=== PATIENT | male | born 1950 | race Caucasian/White ===

== ENCOUNTER 2017-02-19 08:45 | Day surgery (SDC) | payer MEDICARE ==
[2017-02-16 15:39] VITALS: BMI 45.9
[~2017-02-19 08:45] MED LIST: LACTATED RINGERS 1,000 ML IV SCH
[2017-02-19 11:12] LABS: Glucose,Whole Blood 232 mg/dL (75-99)
[2017-02-19] MEDS ORDERED: LIDOCAINE 1% 20 ML VIAL (10MG/ML) FOR IV START INTRADERMA ONE (11:12)
[2017-02-19 11:14] VITALS: TEMP 98.5
[2017-02-19] MEDS ORDERED: LIDOCAINE 1% INJ 10MG/ML (20 ML MDV) ONE (11:14)
[2017-02-19] MEDS ORDERED: PROPOFOL 10 MG/ML 20 ML VIAL IV ONE (11:14)
--- NOTE | 2017-02-19 11:49 | P.GSHP ---
History of Present Illness H&P Date: 02/19/17 Chief Complaint: Colon cancer screening Patient here today for colonoscopy. Last colonoscopy was 8 years ago. Denies rectal bleeding. He has had outpatient stool studies that were negative for blood because of a diagnosis of anemia. No melanotic stools. Last colonoscopy was normal. No family history of colon cancer. Past Medical History Past Medical History: COPD, Diabetes Mellitus, Eye Disorder, Hyperlipidemia, Hypertension, Prostate Disorder, Sleep Apnea/CPAP/BIPAP, Thyroid Disorder Additional Past Medical History / Comment(s): HX PVC'S. MILD COPD. ANEMIA. HX KIDNEY STONES. BPH. HAD DIABETIC RETINOPATHY TX ON EYES. HAS HAD PICC LINE IN PAST, NOW OUT. CHRONIC BACK AND KNEE PAIN History of Any Multi-Drug Resistant Organisms: None Reported Past Surgical History: Orthopedic Surgery Additional Past Surgical History / Comment(s): RT THYROIDECTOMY. MASS FROM BACK , FATTY TUMOR. NASAL MASS REMOVED. LASER EYES, INTRAOCULAR LENS. WOUND ON RT FOOT I&D. LEFT KNEE ARTHROSCOPY, CYST REMOVED FROM TAILBONE Past Anesthesia/Blood Transfusion Reactions: Previous Problems w/ Anesthesia Additional Past Anesthesia/Blood Transfusion Reaction / Comment(s): OCC TAKES LONG TIME TO AWAKEN. Past Psychological History: No Psychological Hx Reported Smoking Status: Former smoker Past Alcohol Use History: None Reported Additional Past Alcohol Use History / Comment(s): SMOKED 25 YEARS, 1 PPD, QUIT 1999 Past Drug Use History: None Reported - Past Family History Mother Family Medical History: No Reported History Medications and Allergies Home Medications Medication Instructions Recorded Confirmed Type Atenolol [Tenormin] 25 mg PO DAILY 03/06/16 02/16/17 History Atorvastatin [Lipitor] 20 mg PO DAILY 03/06/16 02/16/17 History Cholecalciferol [Vitamin D3] 2,000 unit PO DAILY 03/06/16 02/16/17 History Cyclobenzaprine [Flexeril] 10 mg PO TID 03/06/16 02/16/17 History Fenofibrate,Micronized 130 mg PO DAILY 03/06/16 02/16/17 History [Fenofibrate] Furosemide [Furosemide] 40 mg PO BID 03/06/16 02/16/17 History Hydrocodone/Acetaminophen 1 tab PO HS PRN 03/06/16 02/16/17 History [Hydrocodon-Acetaminophn 10-325] Levothyroxine Sodium [Synthroid] 25 mcg PO DAILY 03/06/16 02/16/17 History Lisinopril [Lisinopril] 20 mg PO DAILY 03/06/16 02/16/17 History Naproxen [Naprosyn] 375 mg PO Q12HR 03/06/16 02/16/17 History Potassium Chloride [Klor-Con M10] 10 meq PO BID 03/06/16 02/16/17 History Sennosides-Docusate Sodium 1 tab PO AC-SUPPER 03/06/16 02/16/17 History [Senokot-S] amLODIPine BESYLATE [Amlodipine 10 mg PO DAILY 03/06/16 02/16/17 History Besylate] hydrALAZINE HCL [Apresoline] 50 mg PO BID 03/06/16 02/16/17 History metFORMIN HCL [metFORMIN HCL] 1,000 mg PO BID 03/06/16 02/16/17 History Tamsulosin [Flomax] 0.4 mg PO DAILY #10 cap 03/07/16 02/16/17 Rx Acetaminophen Tab [Tylenol Tab] 325 - 650 mg PO Q6H PRN 02/16/17 02/16/17 History Insulin Glargine,Hum.rec.anlog 100 units SQ HS 02/16/17 02/16/17 History [Gloria Hernandez] Insulin Lispro [humaLOG Kwikpen] 35 unit SQ AC-LUNCH 02/16/17 02/16/17 History Insulin Lispro [humaLOG Kwikpen] 40 unit SQ AC-BRKFST 02/16/17 02/16/17 History Insulin Lispro [humaLOG Kwikpen] 45 unit SQ AC-SUPPER 02/16/17 02/16/17 History cloNIDine HCL [Catapres] 0.1 mg PO TID 02/16/17 02/16/17 History Allergies Allergy/AdvReac Type Severity Reaction Status Date / Time adhesive Allergy BLISTERING Verified 02/19/17 11:06 RASH amoxicillin Allergy Rash/Hives Verified 02/19/17 11:06 Penicillins Allergy Rash/Hives Verified 02/19/17 11:06 pollen extracts Allergy RHINITIS, Verified 02/19/17 11:06 SORE THROAT Surgical - Exam Vital Signs Temp Pulse Resp BP Pulse Ox 98.5 F 86 16 177/72 99 02/19/17 11:13 02/19/17 11:13 02/19/17 11:13 02/19/17 11:13 02/19/17 11:13 Physical exam: General: Well-developed, well-nourished HEENT: Normocephalic, sclerae nonicteric Abdomen: Nontender, nondistended Extremities: No edema Neuro: Alert and oriented Results - Labs Abnormal Lab Results - Last 24 Hours (Table) 02/19/17 Range/Units 11:07 POC Glucose (mg/dL) 232 H (75-99) mg/dL Assessment and Plan (1) Colon cancer screening Narrative/Plan: Will proceed with colonoscopy at this time. Status: Acute
[2017-02-19 12:11] VITALS: BP 129/65; PULSE 76; RESP 16
[2017-02-19 12:20] LABS: Glucose,Whole Blood 239 mg/dL (75-99)
--- NOTE | 2017-02-19 19:08 | P.PCN ---
Date of Procedure: 02/19/17 Preoperative Diagnosis: Postoperative Diagnosis: Procedure(s) Performed: PREOPERATIVE DIAGNOSIS: Anemia POSTOPERATIVE DIAGNOSIS: Cecal mucocele, hepatic flexure polyp 2 PROCEDURE: Colonoscopy with biopsy and snare polypectomy ANESTHESIA: MAC SURGEON: Edwardo Page M.D. SPECIMENS: As above ENDOSCOPIC PROCEDURE: The patient was placed on the endoscopy table in the left decubitus position. The Olympus colonoscope was inserted into the anus and passed under direct visualization to the base of the cecum. The appendiceal orifice was visualized. From that point the scope was slowly withdrawn inspecting all surfaces carefully. The patient had evidence of mucocele in the cecal region. There appeared to be 2 areas in particular both measuring about 1.5 cm in size. Using the cold biopsy forceps the superficial mucosa was biopsied and mucous was seen emanating from that opening. The lesion deflated at that point fully. No friability or explanation for the patient's anemia from that lesion was identified. 2 small polyps in the hepatic flexure were both removed using the snare with cautery technique. One of the 2 polyps did have a small amount of oozing that was controlled using a additional dose of electrocautery. The remainder of the transverse descending sigmoid and rectum appeared normal. There was no visible diverticulosis. Digital rectal examination was normal. The patient was taken to the recovery room in stable condition per anesthesia guidelines. RECOMMENDATIONS: Await biopsy results. Continue anemia workup. Consider hematology evaluation. Implants: Indications for Procedure: Operative Findings: Description of Procedure:
== END 2017-02-19 12:39 | disposition home or self-care (01) ==
LOC: ORWHC2ENDO 08:45
PROVIDERS: ATTEND Surgery
DX: D64.9 Anemia, unspecified (principal); D12.3 Benign neoplasm of transverse colon; K51.40 Inflammatory polyps of colon without complications; I49.3 Ventricular premature depolarization; I10 Essential (primary) hypertension; E78.5 Hyperlipidemia, unspecified; J45.909 Unspecified asthma, uncomplicated; J44.9 Chronic obstructive pulmonary disease, unspecified; G47.33 Obstructive sleep apnea (adult) (pediatric); N40.0 Benign prostatic hyperplasia without lower urinary tract symptoms; E11.9 Type 2 diabetes mellitus without complications; E07.9 Disorder of thyroid, unspecified; M54.9 Dorsalgia, unspecified; M25.569 Pain in unspecified knee; G89.29 Other chronic pain; Z88.0 Allergy status to penicillin; Z87.891 Personal history of nicotine dependence; Z79.84 Long term (current) use of oral hypoglycemic drugs; Z79.4 Long term (current) use of insulin; Z79.899 Other long term (current) drug therapy
CPT/HCPCS: 88305; 45380; 45385; J2001; J2704

== ENCOUNTER → 2017-11-18 | Outpatient (CLI) | payer MEDICARE ==
[2017-11-18 14:42] LABS: Blood Urea Nitrogen 16 mg/dL (9-20); Potassium 4.2 mmol/L (3.5-5.1)
== END | disposition home or self-care (01) ==
LOC: LABPAT 13:40
PROVIDERS: ATTEND Surgery
DX: Z01.818 Encounter for other preprocedural examination (principal); Z01.812 Encounter for preprocedural laboratory examination; I10 Essential (primary) hypertension; Z79.899 Other long term (current) drug therapy
CPT/HCPCS: 36415; 82565; 84132; 84520; 93005

== ENCOUNTER 2020-11-05 16:24 | Inpatient (IN) | payer MEDICARE ==
[2020-11-05 17:35] LABS: Glucose,Whole Blood 148 mg/dL (75-99)
[2020-11-05 20:21] LABS: Anisocytosis Slight; Basophils % (A) 0 %; Eosinophils # (A) 0.1 k/uL (0-0.7); Eosinophils % (A) 1 %; HCT 28.2 % (39.0-53.0); HGB 9.1 gm/dL (13.0-17.5); Hypochromasia Marked; Lymphocytes # (A) 1.2 k/uL (1.0-4.8); Lymphocytes % (A) 11 %; MCH 23.2 pg (25.0-35.0); MCHC 32.4 g/dL (31.0-37.0); MCV 71.7 fL (80.0-100.0); Mean Platelet Volume 6.6; Microcytosis Moderate; Monocytes # (A) 0.6 k/uL (0-1.0); Monocytes % (A) 5 %; Neutrophils % (A) 82 %; Platelet Count 327 k/uL (150-450); Poikilocytosis Slight; RBC 3.93 m/uL (4.30-5.90); RDW 17.8 % (11.5-15.5)
[2020-11-05 20:30] LABS: ALT 14 U/L (4-49); AST 17 U/L (17-59); African American GFR (CKD) >90 (>60 ml/min/1.73 sqM); Albumin 3.6 g/dL (3.5-5.0); Albumin/Globulin Ratio 1.4; Alkaline Phosphatase 85 U/L (38-126); Anion Gap 6 mmol/L; Blood Urea Nitrogen 11 mg/dL (9-20); Calcium 9.2 mg/dL (8.4-10.2); Carbon Dioxide 32 mmol/L (22-30); Chloride 101 mmol/L (98-107); Globulin 2.6 g/dL; Glucose 164 mg/dL (74-99); Non-African American GFR(CKD) 88 (>60 ml/min/1.73 sqM); Potassium 3.4 mmol/L (3.5-5.1); Sodium 139 mmol/L (137-145); Total Bilirubin 0.6 mg/dL (0.2-1.3); Total Protein 6.2 g/dL (6.3-8.2)
[2020-11-05 20:35] LABS: Glucose,Whole Blood 177 mg/dL (75-99)
--- NOTE | 2020-11-05 20:46 | XR ---
EXAMINATION TYPE: XR chest 1V portable DATE OF EXAM: 11/05/2020 COMPARISON: NONE HISTORY: Short of breath TECHNIQUE: Single view FINDINGS: There is no heart failure nor confluent pneumonic infiltrate. Costophrenic angles are clear . There are no hilar masses. Bony thorax is intact. IMPRESSION: No active cardiopulmonary disease. Normal heart.
[2020-11-05] MEDS: ATORVASTATIN 20 MG TAB PO SCH (22:16)
[2020-11-05] MEDS: POTASSIUM CHLORIDE ER 10 MEQ TAB.ER.PRT PO SCH (22:16)
[2020-11-05] MEDS: hydrALAZINE HCL 50 MG TAB PO SCH (22:16)
[2020-11-05] MEDS: lisinopriL 20 MG TAB PO SCH (22:16)
[2020-11-05] MEDS: cloNIDine HCL 0.1 MG TAB PO SCH (22:16)
[2020-11-05] MEDS: TAMSULOSIN 0.4 MG CAP.ER.24H PO SCH (22:17)
[2020-11-05] MEDS: ENOXAPARIN 40 MG/0.4 ML SYRINGE SQ SCH (22:17)
[2020-11-05] MEDS: carvediloL 12.5 MG TAB PO SCH (22:17)
[2020-11-05] MEDS: ACETAMINOPHEN TAB 325 MG TAB PO SCH (22:21)
[2020-11-05] MEDS: INSULIN DETEMIR (LEVEMIR) 100 UNIT/ML SYR SQ SCH (22:22)
[2020-11-05] MEDS: INSULIN ASPART (NovoLOG) 100 UNIT/ML VIAL SQ SCH (22:22)
[2020-11-06 05:28] LABS: Hemoglobin A1C 7.4 % (4.0-6.0)
[2020-11-06] MEDS: LEVOTHYROXINE 25 MCG TAB PO SCH (06:29)
[2020-11-06 06:39] LABS: Glucose,Whole Blood 85 mg/dL (75-99)
[2020-11-06 06:55] LABS: Glucose,Whole Blood 79 mg/dL (75-99)
[2020-11-06] MEDS: INSULIN ASPART (NovoLOG) 100 UNIT/ML VIAL SQ SCH ×4 (06:55→21:11)
[2020-11-06] MEDS: TAMSULOSIN 0.4 MG CAP.ER.24H PO SCH ×2 (08:47→21:12)
[2020-11-06] MEDS: amLODIPine 5 MG TAB PO SCH (08:47)
[2020-11-06] MEDS: lisinopriL 20 MG TAB PO SCH ×2 (08:47→21:12)
[2020-11-06] MEDS: carvediloL 12.5 MG TAB PO SCH ×2 (08:47→21:12)
[2020-11-06] MEDS: cloNIDine HCL 0.1 MG TAB PO SCH ×3 (08:47→21:12)
[2020-11-06] MEDS: POTASSIUM CHLORIDE ER 10 MEQ TAB.ER.PRT PO SCH ×2 (08:47→21:12)
[2020-11-06] MEDS: hydrALAZINE HCL 50 MG TAB PO SCH ×2 (08:47→21:12)
[2020-11-06] MEDS: HYDROcodone/APAP 10-325MG 1 EACH TAB PO PRN ×2 (08:57→21:18)
[2020-11-06] MEDS ORDERED: FUROSEMIDE 40 MG TAB PO SCH (09:00)
--- NOTE | 2020-11-06 09:44 | US ---
EXAMINATION TYPE: US venous doppler duplex LE DATE OF EXAM: 11/06/2020 9:28 AM COMPARISON: NONE CLINICAL HISTORY: elevated d=dimer, swelling. Edema, elevated D-dimer SIDE PERFORMED: Bilateral TECHNIQUE: The lower extremity deep venous system is examined utilizing real time linear array sonog marvin with graded compression, doppler sonography and color-flow sonography. VESSELS IMAGED: Common Femoral Vein Deep Femoral Vein Greater Saphenous Vein * Femoral Vein Popliteal Vein Small Saphenous Vein * Proximal Calf Veins (* superficial vessels) Severely, morbidly obese, difficult exam Right Leg: Negative for DVT Left Leg: Negative for DVT There is normal flow, compressibility, vascular waveforms IMPRESSION: No evident deep venous thrombosis at the knees or central to the knees within the lower e xtremities within the limitations of the exam.
[2020-11-06] MEDS: FUROSEMIDE 10 MG/ML 4 ML VIAL IV SCH ×3 (10:46→23:57)
[2020-11-06 10:47] LABS: Basophils # (A) 0.04 X 10*3/uL (0.00-0.10); Basophils % (A) 0.5 %; Eosinophils # (A) 0.12 X 10*3/uL (0.04-0.35); Eosinophils % (A) 1.4 %; HCT 29.2 % (39.6-50.0); HGB 8.4 g/dL (13.0-17.0); Lymphocytes # (A) 1.65 X 10*3/uL (0.90-5.00); Lymphocytes % (A) 19.5 %; MCH 21.8 pg (27.0-32.0); MCHC 28.8 g/dL (32.0-37.0); MCV 75.8 fL (80.0-97.0); Mean Platelet Volume 9.6 fL (9.5-12.2); Monocytes # (A) 0.72 X 10*3/uL (0.20-1.00); Monocytes % (A) 8.5 %; Neutrophils % (A) 69.6 %; Platelet Count 375 X 10*3/uL (140-440); RBC 3.85 X 10*6/uL (4.40-5.60); RDW 18.6 % (11.5-14.5); WBC 8.47 X 10*3/uL (4.50-10.00)
[2020-11-06 11:06] LABS: Glucose,Whole Blood 143 mg/dL (75-99)
--- NOTE | 2020-11-06 11:16 | P.HPIM ---
History of Present Illness H&P Date: 11/06/20 Chief Complaint: Lower extremity swelling and cellulitis This is a 70-year-old male patient who was a direct admit from his PCP with concerns of increased swelling and redness to lower extremities. Patient reports that he's had increased swelling over the past few months with blistering to by low bilateral lower extremity. Patient reports some pain. Patient denies fever at home. Patient does have a past medical history of morbid obesity, sleep apnea requiring CPAP machine, COPD, diabetes mellitus, hyperlipidemia, hypertension, prostate disorder, thyroid disorder and anemia. Chest x-ray was completed showing no active cardio pulmonary disease normal heart. BNP 357. D-dimer was elevated at 3.10. Venous Doppler was completed showing no evident for Deep vein thrombosis. CT of the chest also ordered for elevated d-dimer. Infectious disease and vascular surgery consulted. Patient has remained afebrile. 2-D echo ordered. Blood culture ordered. At this time patient denies any chest pain or shortness of breath. Patient denies nausea vomiting or diarrhea. Patient denies any urinary burning or frequency Review of Systems please refer to HPI otherwise unremarkable Past Medical History Past Medical History: COPD, Diabetes Mellitus, Eye Disorder, Hyperlipidemia, Hypertension, Prostate Disorder, Sleep Apnea/CPAP/BIPAP, Thyroid Disorder Additional Past Medical History / Comment(s): HX PVC'S. MILD COPD. ANEMIA. HX KIDNEY STONES. BPH. HAD DIABETIC RETINOPATHY TX ON EYES. HAS HAD PICC LINE IN PAST, NOW OUT. CHRONIC BACK AND KNEE PAIN History of Any Multi-Drug Resistant Organisms: None Reported Past Surgical History: Orthopedic Surgery Additional Past Surgical History / Comment(s): RT THYROIDECTOMY. MASS FROM BACK, FATTY TUMOR. NASAL MASS REMOVED. LASER EYES, INTRAOCULAR LENS. WOUND ON RT FOOT I&D. LEFT KNEE ARTHROSCOPY, CYST REMOVED FROM TAILBONE Past Anesthesia/Blood Transfusion Reactions: Previous Problems w/ Anesthesia Additional Past Anesthesia/Blood Transfusion Reaction / Comment(s): OCC TAKES LONG TIME TO AWAKEN. Past Psychological History: No Psychological Hx Reported Smoking Status: Former smoker Past Alcohol Use History: None Reported Additional Past Alcohol Use History / Comment(s): SMOKED 25 YEARS, 1 PPD, QUIT 1999 Past Drug Use History: None Reported - Past Family History Mother Family Medical History: COPD Father Family Medical History: Diabetes Mellitus Additional Family Medical History / Comment(s): heart failure Medications and Allergies Home Medications Medication Instructions Recorded Confirmed Type Atorvastatin [Lipitor] 20 mg PO HS 03/06/16 11/05/20 History Furosemide 40 mg PO BID 03/06/16 11/05/20 History Hydrocodone/Acetaminophen 1 tab PO QID PRN 03/06/16 11/05/20 History [Hydrocodon-Acetaminophn 10-325] Levothyroxine Sodium [Synthroid] 25 mcg PO DAILY 03/06/16 11/05/20 History Potassium Chloride [Klor-Con M10] 10 meq PO BID 03/06/16 11/05/20 History lisinopriL [Lisinopril] 20 mg PO BID 03/06/16 11/05/20 History metFORMIN HCL 1,000 mg PO BID 03/06/16 11/05/20 History Insulin Glargine,Hum.rec.anlog 100 units SQ HS 02/16/17 11/05/20 History [Tourox Solostar] Tamsulosin [Flomax] 0.4 mg PO BID 11/17/17 11/05/20 History Acetaminophen [Tylenol Arthritis] 650 mg PO W/SUPPER 11/05/20 11/05/20 History Carvedilol [Coreg] 25 mg PO BID 11/05/20 11/05/20 History Insulin Lispro [humaLOG Kwikpen] See Protocol SQ AC-TID 11/05/20 11/05/20 History amLODIPine [Norvasc] 5 mg PO DAILY 11/05/20 11/05/20 History cloNIDine HCL [Catapres] 0.3 mg PO TID 11/05/20 11/05/20 History hydrALAZINE HCL [Apresoline] 50 mg PO BID 11/05/20 11/05/20 History Allergies Allergy/AdvReac Type Severity Reaction Status Date / Time adhesive Allergy BLISTERING Verified 11/05/20 19:39 RASH amoxicillin Allergy Rash/Hives Verified 11/05/20 19:39 Penicillins Allergy Rash/Hives Verified 11/05/20 19:39 pollen extracts Allergy RHINITIS, Verified 11/05/20 19:39 SORE THROAT Physical Exam Vitals: Vital Signs Temp Pulse Resp BP Pulse Ox 11/06/20 08:00 98.2 F 78 17 154/74 93 L 11/06/20 00:34 97.6 F 85 16 153/60 95 11/05/20 20:45 85 16 11/05/20 18:53 98.3 F 96 16 162/65 94 L 11/05/20 17:00 98.4 F 105 H 20 161/78 94 L Intake and Output 11/05/20 11/06/20 11/06/20 22:59 06:59 14:59 Output Total 200 200 Balance -200 -200 Output: Urine 200 200 Other: Voiding Method Urinal # Voids 1 2 Weight 155.7 kg Head normocephalic Neck supple Lungs clear to auscultation bilaterally no wheezing or crackles Heart regular rate and rhythm S1-S2, no rub or gallop Abdomen is soft nontender nondistended positive bowel sounds no hepatosplenomegaly Extremities +3 lower extremity edema and pedal edema bilaterally. Multiple blisters to bilateral shins erythema noted bilaterally Neuro alert and orientated to 3 Results CBC & Chem 7: 11/06/20 07:09 11/05/20 19:56 Labs: Abnormal Lab Results - Last 24 Hours (Table) 11/05/20 11/05/20 11/05/20 Range/Units 17:33 19:56 19:56 WBC 11.0 H (3.8-10.6) k/uL RBC 3.93 L (4.30-5.90) m/uL Hgb 9.1 L (13.0-17.5) gm/dL Hct 28.2 L (39.0-53.0) % MCV 71.7 L (80.0-100.0) fL MCH 23.2 L (25.0-35.0) pg MCHC (32.0-37.0) g/dL RDW 17.8 H (11.5-15.5) % Neutrophils # 9.0 H (1.3-7.7) k/uL D-Dimer (<0.60) mg/L FEU Potassium 3.4 L (3.5-5.1) mmol/L Carbon Dioxide 32 H (22-30) mmol/L Glucose 164 H (74-99) mg/dL POC Glucose (mg/dL) 148 H (75-99) mg/dL Hemoglobin A1c (4.0-6.0) % Total Protein 6.2 L (6.3-8.2) g/dL 11/05/20 11/05/20 11/05/20 Range/Units 19:56 19:56 20:31 WBC (3.8-10.6) k/uL RBC (4.30-5.90) m/uL Hgb (13.0-17.5) gm/dL Hct (39.0-53.0) % MCV (80.0-100.0) fL MCH (25.0-35.0) pg MCHC (32.0-37.0) g/dL RDW (11.5-15.5) % Neutrophils # (1.3-7.7) k/uL D-Dimer 3.10 H (<0.60) mg/L FEU Potassium (3.5-5.1) mmol/L Carbon Dioxide (22-30) mmol/L Glucose (74-99) mg/dL POC Glucose (mg/dL) 177 H (75-99) mg/dL Hemoglobin A1c 7.4 H (4.0-6.0) % Total Protein (6.3-8.2) g/dL 11/06/20 11/06/20 Range/Units 07:09 11:05 WBC (3.8-10.6) k/uL RBC 3.85 L (4.30-5.90) m/uL Hgb 8.4 L (13.0-17.5) gm/dL Hct 29.2 L (39.0-53.0) % MCV 75.8 L (80.0-100.0) fL MCH 21.8 L (25.0-35.0) pg MCHC 28.8 L (32.0-37.0) g/dL RDW 18.6 H (11.5-15.5) % Neutrophils # (1.3-7.7) k/uL D-Dimer (<0.60) mg/L FEU Potassium (3.5-5.1) mmol/L Carbon Dioxide (22-30) mmol/L Glucose (74-99) mg/dL POC Glucose (mg/dL) 143 H (75-99) mg/dL Hemoglobin A1c (4.0-6.0) % Total Protein (6.3-8.2) g/dL Thrombosis Risk Factor Assmnt - Choose All That Apply Each Factor Represents 1 point: Abnormal pulmonary function (COPD), Obesity (BMI >25), Swollen legs (current) Each Risk Factor Represents 2 Points: Age 61-74 years Thrombosis Risk Factor Assessment Total Risk Factor Score: 5 Thrombosis Risk Factor Assessment Level: High Risk Assessment and Plan Assessment: 1. Bilateral lower extremity edema with blisters. Infectious disease and vascular surgery consulted 2. Elevated d-dimer. Venous Doppler negative. CTA of the chest ordered 3. History of COPD 4. Morbid obesity 5. Obstructive sleep apnea. Home CPAP machine at bedside 6. History of essential hypertension 7. History of hyperlipidemia 8. Hypothyroidism 9. BPH. 10. Diabetes mellitus type 2. Home meds resumed and sliding scale coverage added. A1c 7.4 this does appear improved DVT prophylaxis Lovenox. GI prophylaxis Infectious disease and vascular surgery consulted 2-D echo ordered Venous Doppler and CTA of the chest ordered Blood culture ordered Repeat labs ordered Time with Patient: Greater than 30
--- NOTE | 2020-11-06 11:40 | ECHOF ---
Referral Reason:Shortness of breath MEASUREMENTS -------- HEIGHT: 177.8 cm WEIGHT: 155.6 kg BP: 153/60 IVSd: 2.2 cm (0.6 - 1.1) LVIDd: 5.3 cm (3.9 - 5.3) LVPWd: 2.1 cm (0.6 - 1.1) EDV(Teich): 138 ml IVSs: 2.4 cm LVIDs: 3.7 cm LVPWs: 2.4 cm %IVS Thck: 10 % ESV(Teich): 57 ml EF(Teich): 59 % %FS: 31 % SV(Teich): 81 ml LALs A4C: 5.8 cm LAAs A4C: 23.1 cm LAESV A-L A4C: 77 ml LAESV MOD A4C: 71 ml Ao Diam: 2.6 cm (2.0 - 3.7) AV Cusp: 1.3 cm (1.5 - 2.6) EPSS: 1.3 cm MV E Nguyễn: 0.98 m/s MV DecT: 144 ms MV Dec [place]: 6.8 m/s MV A Nguyễn: 1.27 m/s MV E/A Ratio: 0.77 MV PHT: 42 ms LVOT Vmax: 1.24 m/s LVOT maxP.19 mmHg AV Vmax: 1.53 m/s AV maxP.40 mmHg TR Vmax: 2.33 m/s TR maxP.75 mmHg RAP: 5.00 mmHg RVSP: 26.75 mmHg MV EF SLOPE: 78.66 mm/s (70 - 150) MV EXCURSION: 22.49 mm (> 18.000) FINDINGS -------- Sinus rhythm. This was a technically difficult study with suboptimal views. The left ventricle is mildly dilated. There is severe concentric left ventricular hypertrophy. Ov erall left ventricular systolic function is normal with, an EF between 55 - 60 %. The RV was not well visualized. The left atrium was not well visualized. The right atrium was not well visualized. 5.0mg of Lumason was utilized for enhancement of images Interatrial and interventricular septum intact. The aortic valve was not well visualized. There is no evidence of aortic regurgitation. There is no evidence of aortic stenosis. The mitral valve was not well visualized. No mitral regurgitation. Mild tricuspid regurgitation present. There is no evidence of pulmonary hypertension. The right v entricular systolic pressure, as measured by Doppler, is 26.75mmHg. There is no pulmonic regurgitation present. The aortic root size is normal. IVC Not well visulized. There is no pericardial effusion. CONCLUSIONS -------- 1. The left ventricle is mildly dilated. 2. There is severe concentric left ventricular hypertrophy. 3. Overall left ventricular systolic function is normal with, an EF between 55 - 60 %. 4. Mild tricuspid regurgitation present. TECHNICAL SERVICES CONSULTANT: Tram Willis RDCS
[2020-11-06 12:09] LABS: African American GFR (CKD) 103.4 (60.0-200.0); Albumin 3.9 g/dL (3.80-4.90); Albumin/Globulin Ratio 1.77 (1.60-3.17); Anion Gap 10.1 mmol/L (4.00-12.00); BUN/Creat Ratio 12.5 Ratio (12.00-20.00); Calcium 8.8 mg/dL (8.7-10.3); Carbon Dioxide 29.9 mmol/L (21.6-31.8); Globulin 2.2 g/dL (1.6-3.3); Non-African American GFR(CKD) 89.2 (60.0-200.0); Potassium 3.5 mmol/L (3.5-5.5); Total Bilirubin 0.7 mg/dL (0.2-1.2); Total Protein 6.1 g/dL (6.2-8.2)
--- NOTE | 2020-11-06 13:15 | CT ---
EXAMINATION TYPE: CT angio chest DATE OF EXAM: 11/06/2020 12:54 PM COMPARISON: Chest x-ray from yesterday. HISTORY: shortness of breath, bilateral leg swelling, elevated d-dimer CT DLP: 1086.2 mGycm Automated exposure control for dose reduction was used. CONTRAST: CTA scan of the thorax is performed with IV Contrast, patient injected with 100 mL of Isovue 370, pul monary embolism protocol. MIP images are created and reviewed. FINDINGS: LUNGS: The lungs are grossly clear, there is no concerning parenchymal mass or nodule identified. T here is no pleural effusion or pneumothorax seen. The tracheobronchial tree is patent. MEDIASTINUM: There is satisfactory enhancement of the pulmonary artery and its branches, there is no CT evidence for pulmonary embolism. Satisfactory enhancement of the aorta without aneurysm or dissec tion. There are prominent but subcentimeter lymph nodes throughout the mediastinum. Small to tiny per icardial effusion is seen anteriorly. No cardiomegaly. There is nonvisualized left thyroid lobe with heterogeneous enlarged right thyroid. Correlate clinically. OTHER: Low dense thickening to both adrenal glands favors benign lipid rich hyperplasia. There is sp lenule in the splenic hilum axial image 144. Prominent collateral vessels in the left upper thorax. T here is a 1.5 cm low dense mass in the left lateral thoracic wall axial image 73. Advise Targeted ul trasound follow-up . Large bridging osteophytes in the thoracic spine are noted. IMPRESSION: No CT evidence for acute pulmonary embolism. No suspicious acute pulmonary process. There is 1.5 cm low dense lower thoracic subcutaneous mass or nodule that warrants follow-up.
[2020-11-06] MEDS: ACETAMINOPHEN TAB 325 MG TAB PO SCH (15:57)
[2020-11-06 16:35] LABS: Glucose,Whole Blood 124 mg/dL (75-99)
--- NOTE | 2020-11-06 19:13 | CONS ---
CONSULTATION DATE OF SERVICE: 11/06/2020 REASON FOR CONSULTATION: Lower extremity cellulitis. HISTORY OF PRESENT ILLNESS: The patient is a 70-year-old male with a past medical history significant for chronic lower extremity swelling which the patient has for a couple of months now with blistering that has been getting worse. The patient has been admitted to the hospital with concern for increasing swelling and redness to lower extremities, which the patient mentioned has been getting worse for the last week or so. The patient did have mild dull aching pain to the leg, intensity 3-4/10 with no radiation with associated swelling and redness and multiple blister formation, but no purulent drainage. The patient denies high-grade fever. On presentation to the hospital, the patient was afebrile. The patient did have mildly elevated white count 11,000 with left shift. D- dimer was elevated at 3.10. Creatinine was normal. Liver enzymes are normal. The patient did have a chest x-ray which was negative for acute cardiopulmonary disease. The patient also had a lower extremity Doppler that was negative for DVT. Also had a CT angiogram of the chest with was negative for PE and no acute pulmonary process. Infectious Disease was consulted for recommendations regarding antibiotic therapy because of the antibiotic allergies. REVIEW OF SYSTEMS: Positive points have been mentioned in HPI. Rest of systems are negative. PAST MEDICAL HISTORY: COPD, hypertension, hyperlipidemia, diabetes mellitus, history of prostate disorder, hypothyroidism. PAST SURGICAL HISTORY: Right thyroidectomy, mass removed from the back, wound of the right foot I and D, left knee arthroscopy, . SOCIAL HISTORY: Remote history of smoking. Denies any drinking or drug use. FAMILY HISTORY: Mother with history of COPD. Father history of diabetes. ALLERGIES: AMOXICILLIN and PENICILLIN no history of anaphylaxis. MEDICATIONS: The patient is currently on Tylenol, [place], Norvasc, Lipitor, Coreg Catapres, Lovenox, Lasix, hydralazine, NovoLog, Synthroid, Protonix, K-Dur, Flomax. PHYSICAL EXAMINATION: VITAL SIGNS: Blood pressure 154/74 with a pulse of 70, temperature 98.2, he is 93% on room air. GENERAL DESCRIPTION: Patient is an elderly male up in a chair in no distress. LUNGS: Unlabored breathing, decreased intensity of breath sounds, no wheeze. HEART: S1-S2, regular rate and rhythm. ABDOMEN: Soft, no tenderness. No guarding or rigidity. EXTREMITIES: Diffuse swelling to lower extremities with minimal erythema, no significant breakdown or drainage. NEUROLOGICAL: Patient is awake, alert, oriented times three. Mood and affect normal. LABS: BUN of 20, creatinine 2.8. Electrolytes are normal. Liver enzymes are normal. White count mildly elevated at 11 with left shift. Lower extremity Doppler was negative for DVT. CT angiogram was negative for any PE. DIAGNOSTIC IMPRESSION AND PLAN: 1. Patient with chronic bilateral lower extremity swelling with venostasis dermatitis and possible component of cellulitis, likely from a gram-positive skin karan. Clinically doubt a gram-negative or an MRSA infection. 2. Patient with PENICILLIN allergy that will limit the number of antibiotics safe to use. PLAN: 1. Restart the patient on cefazolin 2 grams q.8 hours. 2. The patient may benefit from compression dressing or Layton wrap. 3. Await Vascular Surgery evaluation. 4. We will follow on clinical condition and further adjust medication if needed. Thank you for this consultation. Will follow this patient along with you. MMODL / IJN: [id number] /
[2020-11-06 20:19] LABS: Glucose,Whole Blood 179 mg/dL (75-99)
[2020-11-06] MEDS: INSULIN DETEMIR (LEVEMIR) 100 UNIT/ML SYR SQ SCH (21:11)
[2020-11-06] MEDS: ENOXAPARIN 40 MG/0.4 ML SYRINGE SQ SCH (21:12)
[2020-11-06] MEDS: ATORVASTATIN 20 MG TAB PO SCH (21:12)
[2020-11-07] MEDS: LEVOTHYROXINE 25 MCG TAB PO SCH (05:52)
[2020-11-07 06:18] LABS: Glucose,Whole Blood 53 mg/dL (75-99)
[2020-11-07 06:34] LABS: Glucose,Whole Blood 55 mg/dL (75-99)
[2020-11-07 06:47] LABS: Glucose,Whole Blood 77 mg/dL (75-99)
--- NOTE | 2020-11-07 07:23 | CONS ---
DATE OF CONSULTATION: 11/06/2020 This is a 70-year-old gentleman who has been admitted to [facility]. The patient was seen by me in the past with bilateral lymphedema. We gave him some wraps, but according to the patient, it was not controlling his swelling and he has been admitted for further evaluation. PAST MEDICAL HISTORY: History of COPD, sleep apnea on CPAP. Patient had a venous ultrasound with no evidence of deep vein thrombosis. The patient also has a high D-dimer. The patient is scheduled to have a CT of the chest. PHYSICAL EXAMINATION: Patient was seen in his room. He is in sitting position. He still has some shortness of breath. Chest has crackles bilaterally. Abdomen is protuberant. Femorals are 1+ bilateral. Patient has mild redness of the lower extremity with multiple skin nodules which are chronic. IMPRESSION: Lymphedema bilateral with obesity. PLAN: I have discussed with the patient and the family. The patient will be seen by me and we will arrange for a lymphedema pump and consultation at the lymphedema clinic in [place], will make arrangements. The patient can be and discharged and followup with me in the office. We will make arrangement to be seen in the lymphedema clinic for lymphedema pump. The patient was seen by infectious Disease with antibiotics. Thank you. VAISHNAVI / BRIGHT: [id number] / GARETT
[2020-11-07] MEDS: INSULIN ASPART (NovoLOG) 100 UNIT/ML VIAL SQ SCH ×4 (07:49→21:51)
[2020-11-07] MEDS: POTASSIUM CHLORIDE ER 10 MEQ TAB.ER.PRT PO SCH ×2 (07:59→21:50)
[2020-11-07] MEDS: TAMSULOSIN 0.4 MG CAP.ER.24H PO SCH ×2 (07:59→21:51)
[2020-11-07] MEDS: FUROSEMIDE 10 MG/ML 4 ML VIAL IV SCH (07:59)
[2020-11-07] MEDS: amLODIPine 5 MG TAB PO SCH (07:59)
[2020-11-07] MEDS: PANTOPRAZOLE 40 MG TABLET PO SCH (07:59)
[2020-11-07] MEDS: hydrALAZINE HCL 50 MG TAB PO SCH ×2 (07:59→21:51)
[2020-11-07] MEDS: lisinopriL 20 MG TAB PO SCH ×2 (07:59→21:51)
[2020-11-07] MEDS: carvediloL 12.5 MG TAB PO SCH ×2 (07:59→21:50)
[2020-11-07] MEDS: cloNIDine HCL 0.1 MG TAB PO SCH ×3 (07:59→21:50)
[2020-11-07] MEDS: HYDROcodone/APAP 10-325MG 1 EACH TAB PO PRN ×2 (08:06→21:51)
--- NOTE | 2020-11-07 10:23 | P.PN ---
Subjective Progress Note Date: 11/07/20 This is a 70-year-old male patient who was a direct admit from his PCP with concerns of increased swelling and redness to lower extremities. Patient reports that he's had increased swelling over the past few months with blistering to by low bilateral lower extremity. Patient reports some pain. Patient denies fever at home. Patient does have a past medical history of morbid obesity, sleep apnea requiring CPAP machine, COPD, diabetes mellitus, hyperlipidemia, hypertension, prostate disorder, thyroid disorder and anemia. Chest x-ray was completed showing no active cardio pulmonary disease normal h eart. BNP 357. D-dimer was elevated at 3.10. Venous Doppler was completed showing no evident for Deep vein thrombosis. CT of the chest also ordered for elevated d-dimer. Infectious disease and vascular surgery consulted. Patient has remained afebrile. 2-D echo ordered. Blood culture ordered. At this time patient denies any chest pain or shortness of breath. Patient denies nausea vomiting or diarrhea. Patient denies any urinary burning or frequency On 11/07/2020 patient is alert and oriented 3. Patient maintained was old per infectious disease. Patient also evaluated by vascular surgery recommending patient follow-up in the lymphedema clinic. 2-D echo was completed showing an EF of 55-60%. CTA negative for PE. Patient requesting Lasix be decreased due to feeling dehydrated. Patient denies chest pain or shortness of breath. Patient denies nausea vomiting or diarrhea. Patient denies any urinary burning or frequency. Objective - Vital Signs Vital signs: Vital Signs Temp 97.9 F 11/07/20 08:00 Pulse 65 11/07/20 08:00 Resp 16 11/07/20 08:00 BP 158/65 11/07/20 08:00 Pulse Ox 96 11/07/20 08:00 Intake & Output 11/06/20 11/07/20 11/07/20 18:59 06:59 18:59 Output Total 1000 Balance -1000 Output: Urine 1000 Other: Voiding Method Toilet Urinal # Voids 5 # Bowel Movements 1 - Exam Head normocephalic Neck supple Lungs clear to auscultation bilaterally no wheezing or crackles Heart regular rate and rhythm S1-S2, no rub or gallop Abdomen is soft nontender nondistended positive bowel sounds no hepatosplenomegaly Extremities +3 lower extremity edema and pedal edema bilaterally. Multiple blis ters to bilateral shins erythema noted bilaterally Neuro alert and orientated to 3 - Labs CBC & Chem 7: 11/06/20 07:09 11/06/20 07:09 Labs: Abnormal Lab Results - Last 24 Hours (Table) 11/06/20 11/06/20 11/06/20 Range/Units 07:09 07:09 11:05 RBC 3.85 L (4.40-5.60) X 10*6/uL Hgb 8.4 L (13.0-17.0) g/dL Hct 29.2 L (39.6-50.0) % MCV 75.8 L (80.0-97.0) fL MCH 21.8 L (27.0-32.0) pg MCHC 28.8 L (32.0-37.0) g/dL RDW 18.6 H (11.5-14.5) % Glucose 57 L (70-110) mg/dL POC Glucose (mg/dL) 143 H (75-99) mg/dL Total Protein 6.1 L (6.2-8.2) g/dL 11/06/20 11/06/20 11/07/20 Range/Units 16:33 20:18 06:15 RBC (4.40-5.60) X 10*6/uL Hgb (13.0-17.0) g/dL Hct (39.6-50.0) % MCV (80.0-97.0) fL MCH (27.0-32.0) pg MCHC (32.0-37.0) g/dL RDW (11.5-14.5) % Glucose (70-110) mg/dL POC Glucose (mg/dL) 124 H 179 H 53 L (75-99) mg/dL Total Protein (6.2-8.2) g/dL 11/07/20 Range/Units 06:30 RBC (4.40-5.60) X 10*6/uL Hgb (13.0-17.0) g/dL Hct (39.6-50.0) % MCV (80.0-97.0) fL MCH (27.0-32.0) pg MCHC (32.0-37.0) g/dL RDW (11.5-14.5) % Glucose (70-110) mg/dL POC Glucose (mg/dL) 55 L (75-99) mg/dL Total Protein (6.2-8.2) g/dL Microbiology - Last 24 Hours (Table) 11/05/20 19:56 Blood Culture - Preliminary Blood No Growth after 24 hours Assessment and Plan Assessment: 1. Bilateral lower extremity edema with blisters. Infectious disease and vascular surgery consulted patient currently on cefazolin per infectious disease. Patient was evaluated by Dr. Nicole recommendation patient follow-up in the lymphedema clinic 2. Elevated d-dimer. Venous Doppler negative. CTA of the chest negative for PE 3. History of COPD 4. Morbid obesity 5. Obstructive sleep apnea. Home CPAP machine at bedside 6. History of essential hypertension 7. History of hyperlipidemia 8. Hypothyroidism 9. BPH. 10. Diabetes mellitus type 2. Home meds resumed and sliding scale coverage added. A1c 7.4 this does appear improved DVT prophylaxis Lovenox. GI prophylaxis Infectious disease and vascular surgery consulted Blood culture ordered Repeat labs ordered
[2020-11-07] MEDS: DOCUSATE 100 MG CAP PO SCH (11:37)
[2020-11-07 11:58] LABS: Glucose,Whole Blood 206 mg/dL (75-99)
[2020-11-07 12:33] LABS: Basophils # (A) 0.06 X 10*3/uL (0.00-0.10); Basophils % (A) 0.5 %; Eosinophils # (A) 0.21 X 10*3/uL (0.04-0.35); Eosinophils % (A) 1.8 %; HCT 32.1 % (39.6-50.0); HGB 9.2 g/dL (13.0-17.0); Lymphocytes # (A) 2.13 X 10*3/uL (0.90-5.00); Lymphocytes % (A) 18.3 %; MCH 21.6 pg (27.0-32.0); MCHC 28.7 g/dL (32.0-37.0); MCV 75.5 fL (80.0-97.0); Mean Platelet Volume 10.1 fL (9.5-12.2); Monocytes % (A) 8.6 %; Neutrophils # (A) 8.18 X 10*3/uL (1.80-7.70); Neutrophils % (A) 70.3 %; Platelet Count 425 X 10*3/uL (140-440); RBC 4.25 X 10*6/uL (4.40-5.60); RDW 18.6 % (11.5-14.5); WBC 11.64 X 10*3/uL (4.50-10.00)
[2020-11-07] MEDS: FUROSEMIDE 40 MG TAB PO SCH (15:19)
--- NOTE | 2020-11-07 15:23 | CDI ---
Documentation Clarification Form Date: 11/07/2020 02:54:02 PM From: Josephine Zamora RN, CCDS Admit Date: 11/05/2020 04:46:00 PM Patient Name: Francisco Cao Visit Number: [id number] Discharge Date: ATTENTION: The Clinical Documentation Specialists (CDI) and [facility] Coding Staff appreciate your assistance in clarifying documentation. Please respond to the clarification below the line at the bottom and electronically sign. The CDI & [facility] Coding staff will review the response and follow-up if needed. Please note: Queries are made part of the Legal Health Record. If you have any questions, please contact the author of this message via ITS. Dr. Aquilino Garber The patients principal diagnosis, the diagnosis that was chiefly responsible for the admission - has not been clearly identified and clarification is requested. The patient presented with the following: Chronic lower extremity swelling, now with blistering that has been getting worse. History/Risk factors: COPD, Hypertension, Diabetes Mellitus, Clinical Indicators:70-year-old meal with concern for increasing swelling, redness and multiple blister formation, to bilateral lower extremities. Diffuse swelling to lower extremities with minimal erythema, no significant breakdown or drainage per ID progress note on 11/06/20. 10/22 Labs: WBC 11.64 11/05 B/L lower extremity Doppler: negative for DVT. CT angiogram of chest: negative for PE 11/05 (17:00) Vital signs: 161/78 105 98.4 94 % RA 11/06 ID Consult: Patient with chronic bilateral lower extremity swelling with venostasis dermatitis and possible component of cellulitis, likely from a gram- positive skin karan. 11/06 Vascular consult: Patient has mild redness of the lower extremity with multiple skin nodules which are chronic. Impression: Lymphedema bilateral with obesity. Treatment: Arrange for a lymphedema pump and consultation at the lymphedema clinic. Cefazolin 2 GM IVPB Q8HR Compression dressing or Layton wrap bilateral lower extremities Lasix 40MG PO BID In your professional opinion, can you please clarify which diagnosis, after study, was the reason chiefly responsible for the admission? [ ] Venostasis dermatitis and possible component of cellulitis in a patient with Diabetes Mellitus type II [ ] Lymphedema bilaterally with obesity in a patient with Diabetes Mellitus type II [ ] Other, please specify [ ] Unable to determine (Template Last Revised: August 2020) Lymphedema bilaterally and venostasis dermatitis with component of cellulitis in patient with diabetes mellitus at 2 MTDD
--- NOTE | 2020-11-07 16:29 | PN ---
PROGRESS NOTE DATE OF SERVICE: 11/07/2020 REASON FOR FOLLOWUP: Bilateral lower extremity cellulitis. INTERVAL HISTORY: The patient is currently afebrile. The patient is breathing comfortably. Denies having any chest pain, shortness of breath or cough. No abdominal pain or worsening pain to the lower extremity. PHYSICAL EXAMINATION: Blood pressure is 184/65, pulse of 80, temperature 98.2. He 91% on room air. General description is an elderly male, lying in bed, in no distress. RESPIRATORY SYSTEM: Unlabored breathing, decreased intensity of breath sounds. No wheeze. HEART: S1, S2. Regular rate and rhythm. ABDOMEN: Soft, no tenderness. Lower extremity swelling, minimal redness, no drainage. LABS: Hemoglobin 9.2, white count 11.64. DIAGNOSTIC IMPRESSION AND PLAN: Patient with bilateral lower extremity swelling with concern of possible cellulitis covered with cefazolin along with Layton wrap for compression. Outpatient followup . Continue supportive care. MMODL / IJN: [id number] /
[2020-11-07 17:04] LABS: Glucose,Whole Blood 204 mg/dL (75-99)
[2020-11-07] MEDS: ACETAMINOPHEN TAB 325 MG TAB PO SCH (17:52)
[2020-11-07 20:36] LABS: Glucose,Whole Blood 216 mg/dL (75-99)
[2020-11-07] MEDS: ENOXAPARIN 40 MG/0.4 ML SYRINGE SQ SCH (21:50)
[2020-11-07] MEDS: ATORVASTATIN 20 MG TAB PO SCH (21:50)
[2020-11-07] MEDS: INSULIN DETEMIR (LEVEMIR) 100 UNIT/ML SYR SQ SCH (21:51)
[2020-11-07 22:22] LABS: African American GFR (CKD) 103.4 (60.0-200.0); Albumin 4.3 g/dL (3.80-4.90); Albumin/Globulin Ratio 1.72 (1.60-3.17); Anion Gap 14.3 mmol/L (4.00-12.00); BUN/Creat Ratio 11.25 Ratio (12.00-20.00); Carbon Dioxide 24.7 mmol/L (21.6-31.8); Globulin 2.5 g/dL (1.6-3.3); Non-African American GFR(CKD) 89.2 (60.0-200.0); Potassium 3.5 mmol/L (3.5-5.5); Total Bilirubin 0.5 mg/dL (0.2-1.2); Total Protein 6.8 g/dL (6.2-8.2)
[2020-11-08] MEDS: LEVOTHYROXINE 25 MCG TAB PO SCH (06:08)
[2020-11-08 06:55] LABS: Glucose,Whole Blood 211 mg/dL (75-99)
[2020-11-08] MEDS: INSULIN ASPART (NovoLOG) 100 UNIT/ML VIAL SQ SCH ×4 (07:55→22:47)
[2020-11-08] MEDS: POTASSIUM CHLORIDE ER 10 MEQ TAB.ER.PRT PO SCH ×2 (07:56→22:47)
[2020-11-08] MEDS: carvediloL 12.5 MG TAB PO SCH ×2 (07:56→22:45)
[2020-11-08] MEDS: lisinopriL 20 MG TAB PO SCH ×2 (07:56→22:46)
[2020-11-08] MEDS: cloNIDine HCL 0.1 MG TAB PO SCH ×3 (07:56→22:46)
[2020-11-08] MEDS: DOCUSATE 100 MG CAP PO SCH (07:56)
[2020-11-08] MEDS: FUROSEMIDE 40 MG TAB PO SCH ×2 (07:56→16:24)
[2020-11-08] MEDS: TAMSULOSIN 0.4 MG CAP.ER.24H PO SCH ×2 (07:56→22:46)
[2020-11-08] MEDS: amLODIPine 5 MG TAB PO SCH (07:56)
[2020-11-08] MEDS: hydrALAZINE HCL 50 MG TAB PO SCH ×2 (07:56→22:46)
[2020-11-08] MEDS: PANTOPRAZOLE 40 MG TABLET PO SCH (07:56)
[2020-11-08] MEDS: HYDROcodone/APAP 10-325MG 1 EACH TAB PO PRN ×2 (07:58→23:07)
[2020-11-08 09:56] LABS: Basophils # (A) 0.05 X 10*3/uL (0.00-0.10); Basophils % (A) 0.6 %; Eosinophils % (A) 1.2 %; HCT 27.8 % (39.6-50.0); HGB 8.1 g/dL (13.0-17.0); Lymphocytes % (A) 16.4 %; MCHC 29.1 g/dL (32.0-37.0); MCV 75.5 fL (80.0-97.0); Mean Platelet Volume 9.9 fL (9.5-12.2); Monocytes # (A) 0.76 X 10*3/uL (0.20-1.00); Monocytes % (A) 8.9 %; Neutrophils # (A) 6.21 X 10*3/uL (1.80-7.70); Neutrophils % (A) 72.4 %; Platelet Count 344 X 10*3/uL (140-440); RBC 3.68 X 10*6/uL (4.40-5.60); RDW 18.4 % (11.5-14.5); WBC 8.56 X 10*3/uL (4.50-10.00)
[2020-11-08 11:48] LABS: African American GFR (CKD) 98.5 (60.0-200.0); Albumin 3.9 g/dL (3.80-4.90); Albumin/Globulin Ratio 1.77 (1.60-3.17); Anion Gap 9.3 mmol/L (4.00-12.00); BUN/Creat Ratio 13.33 Ratio (12.00-20.00); Calcium 8.8 mg/dL (8.7-10.3); Carbon Dioxide 29.7 mmol/L (21.6-31.8); Globulin 2.2 g/dL (1.6-3.3); Potassium 3.4 mmol/L (3.5-5.5); Total Bilirubin 0.5 mg/dL (0.2-1.2); Total Protein 6.1 g/dL (6.2-8.2)
[2020-11-08 12:08] LABS: Glucose,Whole Blood 178 mg/dL (75-99)
[2020-11-08] MEDS: ACETAMINOPHEN TAB 325 MG TAB PO SCH (17:16)
[2020-11-08 17:21] LABS: Glucose,Whole Blood 213 mg/dL (75-99)
--- NOTE | 2020-11-08 19:48 | PN ---
PROGRESS NOTE DATE OF SERVICE: 11/08/2020 REASON FOR FOLLOWUP: Bilateral lower extremity cellulitis. INTERVAL HISTORY: The patient is afebrile. The patient is breathing comfortably. The patient denies having any chest pain or shortness of breath or cough. No worsening pain to the lower extremity or diarrhea. PHYSICAL EXAMINATION: Blood pressure 166/53, pulse of 72, temperature 98.7. She is 96% on room air. General description is an elderly male up in the chair in no distress. RESPIRATORY SYSTEM: Unlabored breathing with decreased breath sounds at the base. No wheeze. HEART: S1, S2. Regular rate and rhythm. ABDOMEN: Soft. No tenderness. Bilateral lower extremities have swelling, minimal redness. No significant drainage. LABS: No new labs have been obtained today. DIAGNOSTIC IMPRESSION AND PLAN: Patient with bilateral lower extremity lymphedema with concern for mild cellulitis. Local care will be with Layton wrap for compression. On cefazolin; transition to oral on discharge. Continue supportive care. MMODL / IJN: [id number] /
[2020-11-08 21:14] LABS: Glucose,Whole Blood 270 mg/dL (75-99)
[2020-11-08] MEDS: ATORVASTATIN 20 MG TAB PO SCH (22:46)
[2020-11-08] MEDS: ENOXAPARIN 40 MG/0.4 ML SYRINGE SQ SCH (22:47)
[2020-11-08] MEDS: INSULIN DETEMIR (LEVEMIR) 100 UNIT/ML SYR SQ SCH (22:48)
[2020-11-09 03:54] LABS: % Iron Saturation 4.33 (15.00-50.00); Folate, Serum 10.3 ng/mL
[2020-11-09] MEDS: LEVOTHYROXINE 25 MCG TAB PO SCH (05:44)
[2020-11-09 07:38] LABS: Anisocytosis Slight; Basophils % (A) 0 %; Eosinophils # (A) 0.1 k/uL (0-0.7); Eosinophils % (A) 1 %; HCT 30.1 % (39.0-53.0); HGB 8.9 gm/dL (13.0-17.5); Hypochromasia Marked; Lymphocytes # (A) 1.6 k/uL (1.0-4.8); Lymphocytes % (A) 18 %; MCH 21.6 pg (25.0-35.0); MCHC 29.6 g/dL (31.0-37.0); MCV 73.1 fL (80.0-100.0); Mean Platelet Volume 7.1; Microcytosis Moderate; Monocytes # (A) 0.5 k/uL (0-1.0); Monocytes % (A) 6 %; Neutrophils # (A) 6.3 k/uL (1.3-7.7); Neutrophils % (A) 73 %; Platelet Count 362 k/uL (150-450); RBC 4.12 m/uL (4.30-5.90); RDW 17.7 % (11.5-15.5); WBC 8.7 k/uL (3.8-10.6)
[2020-11-09 07:42] LABS: Glucose,Whole Blood 102 mg/dL (75-99)
[2020-11-09] MEDS: INSULIN ASPART (NovoLOG) 100 UNIT/ML VIAL SQ SCH ×4 (08:09→21:58)
[2020-11-09] MEDS: DOCUSATE 100 MG CAP PO SCH (08:37)
[2020-11-09] MEDS: carvediloL 12.5 MG TAB PO SCH ×2 (08:37→21:58)
[2020-11-09] MEDS: HYDROcodone/APAP 10-325MG 1 EACH TAB PO PRN ×2 (08:37→21:56)
[2020-11-09] MEDS: PANTOPRAZOLE 40 MG TABLET PO SCH (08:37)
[2020-11-09] MEDS: amLODIPine 5 MG TAB PO SCH (08:37)
[2020-11-09] MEDS: POTASSIUM CHLORIDE ER 10 MEQ TAB.ER.PRT PO SCH ×2 (08:38→21:58)
[2020-11-09] MEDS: cloNIDine HCL 0.1 MG TAB PO SCH ×3 (08:38→21:57)
[2020-11-09] MEDS: hydrALAZINE HCL 50 MG TAB PO SCH ×2 (08:38→21:58)
[2020-11-09] MEDS: FUROSEMIDE 40 MG TAB PO SCH ×2 (08:38→15:54)
[2020-11-09] MEDS: lisinopriL 20 MG TAB PO SCH ×2 (08:38→21:57)
[2020-11-09] MEDS: TAMSULOSIN 0.4 MG CAP.ER.24H PO SCH ×2 (08:38→21:58)
[2020-11-09 11:39] LABS: Glucose,Whole Blood 201 mg/dL (75-99)
[2020-11-09] MEDS ORDERED: SODIUM FERRIC GLUCONAT-SUCROSE 125 MG in SODIUM CHLORIDE 0.9% 100 ML IVPB ONE (13:05)
[2020-11-09] MEDS: CYANOCOBALAMIN 500 MCG TAB PO SCH (14:40)
[2020-11-09] MEDS: ACETAMINOPHEN TAB 325 MG TAB PO SCH (15:20)
[2020-11-09 15:32] LABS: African American GFR (CKD) 109.3 (60.0-200.0); Albumin/Globulin Ratio 1.74 (1.60-3.17); Anion Gap 7.5 mmol/L (4.00-12.00); BUN/Creat Ratio 17.14 Ratio (12.00-20.00); Calcium 8.8 mg/dL (8.7-10.3); Carbon Dioxide 30.5 mmol/L (21.6-31.8); Globulin 2.3 g/dL (1.6-3.3); Non-African American GFR(CKD) 94.3 (60.0-200.0); Potassium 3.3 mmol/L (3.5-5.5); Total Bilirubin 0.6 mg/dL (0.2-1.2); Total Protein 6.3 g/dL (6.2-8.2)
[2020-11-09] MEDS ORDERED: Potassium Replacement Protocol 1 EACH MISC MISCELLANE PRN (15:38)
[2020-11-09] MEDS: POTASSIUM CHLORIDE ER 20 MEQ TAB.ER PO SCH (15:54)
--- NOTE | 2020-11-09 16:23 | P.PN ---
Subjective Progress Note Date: 11/08/20 This is a 70-year-old male patient who was a direct admit from his PCP with concerns of increased swelling and redness to lower extremities. Patient reports that he's had increased swelling over the past few months with blistering to by low bilateral lower extremity. Patient reports some pain. Patient denies fever at home. Patient does have a past medical history of morbid obesity, sleep apnea requiring CPAP machine, COPD, diabetes mellitus, hyperlipidemia, hypertension, prostate disorder, thyroid disorder and anemia. Chest x-ray was completed showing no active cardio pulmonary disease normal h eart. BNP 357. D-dimer was elevated at 3.10. Venous Doppler was completed showing no evident for Deep vein thrombosis. CT of the chest also ordered for elevated d-dimer. Infectious disease and vascular surgery consulted. Patient has remained afebrile. 2-D echo ordered. Blood culture ordered. At this time patient denies any chest pain or shortness of breath. Patient denies nausea vomiting or diarrhea. Patient denies any urinary burning or frequency On 11/07/2020 patient is alert and oriented 3. Patient maintained was old per infectious disease. Patient also evaluated by vascular surgery recommending patient follow-up in the lymphedema clinic. 2-D echo was completed showing an EF of 55-60%. CTA negative for PE. Patient requesting Lasix be decreased due to feeling dehydrated. Patient denies chest pain or shortness of breath. Patient denies nausea vomiting or diarrhea. Patient denies any urinary burning or frequency. On 11/08/2020 Patient was seen and examined on the medical floor, he is alert and oriented x 3 in no distress, he denies any complaints there is no fever or chills no headache or dizziness no chest pain no shortness of breath no palpitation no cough no nausea or vomiting no abdominal pain no diarrhea no blood in the stools no burning with urination no frequency or urgency and no hematuria, patient is still complaining of significant pain and swelling in the lower extremities, he has significant anemia, and has evidence of iron deficiency and vitamin B12 deficiency, will replace, continue with IV antibiotics continue with physical therapy and occupational therapy. Objective - Vital Signs Vital signs: Vital Signs Temp 98.8 F 11/08/20 08:00 Pulse 76 11/08/20 08:00 Resp 20 11/08/20 08:00 BP 178/66 11/08/20 08:00 Pulse Ox 95 11/08/20 08:00 Intake & Output 11/07/20 11/08/20 11/08/20 18:59 06:59 18:59 Intake Total 690 Output Total 1000 900 Balance -310 -900 Intake: Intake, IV Titration 50 Amount ceFAZolin 2 gm In Sodium 50 Chloride 0.9% 50 ml @ 100 mls/hr IVPB Q8HR PHOEBE Rx# :[id number] Oral 640 Output: Urine 1000 900 Other: Voiding Method Toilet Urinal - Exam Head normocephalic Neck supple Lungs clear to auscultation bilaterally no wheezing or crackles Heart regular rate and rhythm S1-S2, no rub or gallop Abdomen is soft nontender nondistended positive bowel sounds no hepatosplenomegaly Extremities +3 lower extremity edema and pedal edema bilaterally. Multiple blisters to bilateral shins erythema noted bilaterally Neuro alert and orientated to 3 - Labs CBC & Chem 7: 11/09/20 07:01 11/09/20 07:01 Labs: Abnormal Lab Results - Last 24 Hours (Table) 11/07/20 11/07/20 11/07/20 Range/Units 06:24 06:24 11:52 WBC 11.64 H (4.50-10.00) X 10*3/uL RBC 4.25 L (4.40-5.60) X 10*6/uL Hgb 9.2 L (13.0-17.0) g/dL Hct 32.1 L (39.6-50.0) % MCV 75.5 L (80.0-97.0) fL MCH 21.6 L (27.0-32.0) pg MCHC 28.7 L (32.0-37.0) g/dL RDW 18.6 H (11.5-14.5) % Plt Count Comment A Immature Gran # 0.06 H (0.00-0.04) X 10*3/uL Neutrophils # 8.18 H (1.80-7.70) X 10*3/uL Anion Gap 14.30 H (4.00-12.00) mmol/L BUN/Creatinine Ratio 11.25 L (12.00-20.00) Ratio Glucose 40 L* (70-110) mg/dL POC Glucose (mg/dL) 206 H (75-99) mg/dL 11/07/20 11/07/20 11/08/20 Range/Units 17:03 20:32 06:52 WBC (4.50-10.00) X 10*3/uL RBC (4.40-5.60) X 10*6/uL Hgb (13.0-17.0) g/dL Hct (39.6-50.0) % MCV (80.0-97.0) fL MCH (27.0-32.0) pg MCHC (32.0-37.0) g/dL RDW (11.5-14.5) % Plt Count Comment Immature Gran # (0.00-0.04) X 10*3/uL Neutrophils # (1.80-7.70) X 10*3/uL Anion Gap (4.00-12.00) mmol/L BUN/Creatinine Ratio (12.00-20.00) Ratio Glucose (70-110) mg/dL POC Glucose (mg/dL) 204 H 216 H 211 H (75-99) mg/dL Microbiology - Last 24 Hours (Table) 11/05/20 19:56 Blood Culture - Preliminary Blood No Growth after 48 hours Assessment and Plan Assessment: 1. Bilateral lower extremity edema with blisters. Infectious disease and vascular surgery consulted patient currently on cefazolin per infectious disease. Patient was evaluated by Dr. Nicole recommendation patient follow-up in the lymphedema clinic 2. Elevated d-dimer. Venous Doppler negative. CTA of the chest negative for PE 3. History of COPD 4. Morbid obesity 5. Obstructive sleep apnea. Home CPAP machine at bedside 6. History of essential hypertension 7. History of hyperlipidemia 8. Hypothyroidism 9. BPH. 10. Diabetes mellitus type 2. Home meds resumed and sliding scale coverage added. A1c 7.4 this does appear improved DVT prophylaxis Lovenox. GI prophylaxis Infectious disease and vascular surgery consulted Blood culture ordered Repeat labs ordered
--- NOTE | 2020-11-09 16:24 | P.PN ---
Subjective Progress Note Date: 11/09/20 This is a 70-year-old male patient who was a direct admit from his PCP with concerns of increased swelling and redness to lower extremities. Patient reports that he's had increased swelling over the past few months with blistering to by low bilateral lower extremity. Patient reports some pain. Patient denies fever at home. Patient does have a past medical history of morbid obesity, sleep apnea requiring CPAP machine, COPD, diabetes mellitus, hyperlipidemia, hypertension, prostate disorder, thyroid disorder and anemia. Chest x-ray was completed showing no active cardio pulmonary disease normal h eart. BNP 357. D-dimer was elevated at 3.10. Venous Doppler was completed showing no evident for Deep vein thrombosis. CT of the chest also ordered for elevated d-dimer. Infectious disease and vascular surgery consulted. Patient has remained afebrile. 2-D echo ordered. Blood culture ordered. At this time patient denies any chest pain or shortness of breath. Patient denies nausea vomiting or diarrhea. Patient denies any urinary burning or frequency On 11/07/2020 patient is alert and oriented 3. Patient maintained was old per infectious disease. Patient also evaluated by vascular surgery recommending patient follow-up in the lymphedema clinic. 2-D echo was completed showing an EF of 55-60%. CTA negative for PE. Patient requesting Lasix be decreased due to feeling dehydrated. Patient denies chest pain or shortness of breath. Patient denies nausea vomiting or diarrhea. Patient denies any urinary burning or frequency. On 11/08/2020 Patient was seen and examined on the medical floor, he is alert and oriented x 3 in no distress, he denies any complaints there is no fever or chills no headache or dizziness no chest pain no shortness of breath no palpitation no cough no nausea or vomiting no abdominal pain no diarrhea no blood in the stools no burning with urination no frequency or urgency and no hematuria, patient is still complaining of significant pain and swelling in the lower extremities, he has significant anemia, and has evidence of iron deficiency and vitamin B12 deficiency, will replace, continue with IV antibiotics continue with physical therapy and occupational therapy. On 11/09/2020 Patient was seen and examined on the medical floor, he is alert and oriented x 3 in no distress, he denies any complaints there is no fever or chills no headache or dizziness no chest pain no shortness of breath no palpitation no cough no nausea or vomiting no abdominal pain no diarrhea no blood in the stools no burning with urination no frequency or urgency and no hematuria, continue IV antibiotic IV iron and vitamin B12 supplements, continue with physical therapy, will follow in a.m. Objective - Vital Signs Vital signs: Vital Signs Temp 98.2 F 11/09/20 14:00 Pulse 75 11/09/20 14:00 Resp 20 11/09/20 14:00 BP 180/74 11/09/20 14:00 Pulse Ox 96 11/09/20 14:00 Intake & Output 11/08/20 11/09/20 11/09/20 18:59 06:59 18:59 Intake Total 420 520 Output Total 400 600 Balance 420 -400 -80 Intake: Intake, IV Titration 100 Amount ceFAZolin 2 gm In Sodium 100 Chloride 0.9% 50 ml @ 100 mls/hr IVPB Q8HR [facility]BE Rx# :[id number] Oral 320 520 Output: Urine 400 600 Other: Voiding Method Toilet Toilet Urinal Urinal # Voids 3 - Exam Head normocephalic Neck supple Lungs clear to auscultation bilaterally no wheezing or crackles Heart regular rate and rhythm S1-S2, no rub or gallop Abdomen is soft nontender nondistended positive bowel sounds no hep atosplenomegaly Extremities +3 lower extremity edema and pedal edema bilaterally. Multiple blisters to bilateral shins erythema noted bilaterally Neuro alert and orientated to 3 - Labs CBC & Chem 7: 11/09/20 07:01 11/09/20 07:01 Labs: Abnormal Lab Results - Last 24 Hours (Table) 11/05/20 11/08/20 11/08/20 Range/Units 19:56 17:08 21:13 RBC (4.30-5.90) m/uL Hgb (13.0-17.5) gm/dL Hct (39.0-53.0) % MCV (80.0-100.0) fL MCH (25.0-35.0) pg MCHC (31.0-37.0) g/dL RDW (11.5-15.5) % Potassium (3.5-5.5) mmol/L POC Glucose (mg/dL) 213 H 270 H (75-99) mg/dL Iron 17 L (65-175) ug/dL % Saturation 4.33 L (15.00-50.00) Vitamin B12 143.0 L (200.0-944.0) pg/mL 11/09/20 11/09/20 11/09/20 Range/Units 07:01 07:01 07:21 RBC 4.12 L (4.30-5.90) m/uL Hgb 8.9 L (13.0-17.5) gm/dL Hct 30.1 L (39.0-53.0) % MCV 73.1 L (80.0-100.0) fL MCH 21.6 L (25.0-35.0) pg MCHC 29.6 L (31.0-37.0) g/dL RDW 17.7 H (11.5-15.5) % Potassium 3.3 L (3.5-5.5) mmol/L POC Glucose (mg/dL) 102 H (75-99) mg/dL Iron (65-175) ug/dL % Saturation (15.00-50.00) Vitamin B12 (200.0-944.0) pg/mL 11/09/20 Range/Units 11:30 RBC (4.30-5.90) m/uL Hgb (13.0-17.5) gm/dL Hct (39.0-53.0) % MCV (80.0-100.0) fL MCH (25.0-35.0) pg MCHC (31.0-37.0) g/dL RDW (11.5-15.5) % Potassium (3.5-5.5) mmol/L POC Glucose (mg/dL) 201 H (75-99) mg/dL Iron (65-175) ug/dL % Saturation (15.00-50.00) Vitamin B12 (200.0-944.0) pg/mL Microbiology - Last 24 Hours (Table) 11/05/20 19:56 Blood Culture - Preliminary Blood No Growth after 72 hours Assessment and Plan Assessment: 1. Bilateral lower extremity edema with blisters. Infectious disease and vascular surgery consulted patient currently on cefazolin per infectious disease. Patient was evaluated by Dr. Nicole recommendation patient follow-up in the lymphedema clinic 2. Elevated d-dimer. Venous Doppler negative. CTA of the chest negative for PE 3. History of COPD 4. Morbid obesity 5. Obstructive sleep apnea. Home CPAP machine at bedside 6. History of essential hypertension 7. History of hyperlipidemia 8. Hypothyroidism 9. BPH. 10. Diabetes mellitus type 2. Home meds resumed and sliding scale coverage added. A1c 7.4 this does appear improved DVT prophylaxis Lovenox. GI prophylaxis Infectious disease and vascular surgery consulted Blood culture ordered Repeat labs ordered
[2020-11-09 16:45] LABS: Glucose,Whole Blood 161 mg/dL (75-99)
--- NOTE | 2020-11-09 18:18 | PN ---
PROGRESS NOTE DATE OF SERVICE: 11/09/2020 REASON FOR FOLLOWUP: Bilateral lower extremity cellulitis. INTERVAL HISTORY: The patient is currently afebrile. The patient is breathing comfortably. The patient denies having any chest pain or cough. No abdominal pain or pain to the lower extremity. Did have occasional burning. PHYSICAL EXAMINATION: Blood pressure 118/74 with a pulse of 75, temperature 98.2. He is ( ). General description is an elderly male up in the bed in no distress. Respiratory system: Unlabored breathing, clear to auscultation anteriorly. Heart S1, S2. Regular rate and rhythm. Abdomen soft, no tenderness. Legs did have some swelling, minimal redness, no drainage. LABS: Hemoglobin 8.1, white count 8.7, BUN of 12, creatinine 0.79. DIAGNOSTIC IMPRESSION AND PLAN: Patient with bilateral lower extremity lymphedema, concern for possible secondary cellulitis, covered with cefazolin. Layton wrap to the leg has been requested to keep the swelling down and monitor clinical course. MMODL / IJN: [id number] /
[2020-11-09 21:45] LABS: Glucose,Whole Blood 261 mg/dL (75-99)
[2020-11-09] MEDS: ATORVASTATIN 20 MG TAB PO SCH (21:58)
[2020-11-09] MEDS: ENOXAPARIN 40 MG/0.4 ML SYRINGE SQ SCH (21:58)
[2020-11-09] MEDS: INSULIN DETEMIR (LEVEMIR) 100 UNIT/ML SYR SQ SCH (21:59)
[2020-11-10] MEDS: LEVOTHYROXINE 25 MCG TAB PO SCH (06:09)
[2020-11-10 07:11] LABS: Glucose,Whole Blood 95 mg/dL (75-99)
[2020-11-10] MEDS: INSULIN ASPART (NovoLOG) 100 UNIT/ML VIAL SQ SCH ×4 (07:25→21:12)
[2020-11-10 07:40] LABS: ALT 11 U/L (4-49); AST 15 U/L (17-59); African American GFR (CKD) >90 (>60 ml/min/1.73 sqM); Albumin 3.5 g/dL (3.5-5.0); Albumin/Globulin Ratio 1.3; Alkaline Phosphatase 72 U/L (38-126); Anion Gap 8 mmol/L; Blood Urea Nitrogen 13 mg/dL (9-20); Calcium 8.7 mg/dL (8.4-10.2); Carbon Dioxide 32 mmol/L (22-30); Chloride 100 mmol/L (98-107); Globulin 2.6 g/dL; Glucose 82 mg/dL (74-99); Non-African American GFR(CKD) >90 (>60 ml/min/1.73 sqM); Potassium 3.5 mmol/L (3.5-5.1); Sodium 140 mmol/L (137-145); Total Bilirubin 0.6 mg/dL (0.2-1.3); Total Protein 6.1 g/dL (6.3-8.2)
[2020-11-10] MEDS: amLODIPine 5 MG TAB PO SCH (08:19)
[2020-11-10] MEDS: HYDROcodone/APAP 10-325MG 1 EACH TAB PO PRN (08:19)
[2020-11-10] MEDS: cloNIDine HCL 0.1 MG TAB PO SCH ×3 (08:19→21:12)
[2020-11-10] MEDS: POTASSIUM CHLORIDE ER 10 MEQ TAB.ER.PRT PO SCH ×2 (08:20→21:12)
[2020-11-10] MEDS: DOCUSATE 100 MG CAP PO SCH (08:20)
[2020-11-10] MEDS: FUROSEMIDE 40 MG TAB PO SCH ×2 (08:20→15:41)
[2020-11-10] MEDS: TAMSULOSIN 0.4 MG CAP.ER.24H PO SCH ×2 (08:20→21:13)
[2020-11-10] MEDS: PANTOPRAZOLE 40 MG TABLET PO SCH (08:20)
[2020-11-10] MEDS: lisinopriL 20 MG TAB PO SCH ×2 (08:20→21:13)
[2020-11-10] MEDS: hydrALAZINE HCL 50 MG TAB PO SCH ×2 (08:20→21:12)
[2020-11-10] MEDS: carvediloL 12.5 MG TAB PO SCH ×2 (08:20→21:13)
[2020-11-10] MEDS: CYANOCOBALAMIN 500 MCG TAB PO SCH (08:20)
[2020-11-10 12:10] LABS: Glucose,Whole Blood 108 mg/dL (75-99)
--- NOTE | 2020-11-10 13:08 | P.PN ---
Subjective Progress Note Date: 11/10/20 This is a 70-year-old male patient who was a direct admit from his PCP with concerns of increased swelling and redness to lower extremities. Patient reports that he's had increased swelling over the past few months with blistering to by low bilateral lower extremity. Patient reports some pain. Patient denies fever at home. Patient does have a past medical history of morbid obesity, sleep apnea requiring CPAP machine, COPD, diabetes mellitus, hyperlipidemia, hypertension, prostate disorder, thyroid disorder and anemia. Chest x-ray was completed showing no active cardio pulmonary disease normal h eart. BNP 357. D-dimer was elevated at 3.10. Venous Doppler was completed showing no evident for Deep vein thrombosis. CT of the chest also ordered for elevated d-dimer. Infectious disease and vascular surgery consulted. Patient has remained afebrile. 2-D echo ordered. Blood culture ordered. At this time patient denies any chest pain or shortness of breath. Patient denies nausea vomiting or diarrhea. Patient denies any urinary burning or frequency On 11/07/2020 patient is alert and oriented 3. Patient maintained was old per infectious disease. Patient also evaluated by vascular surgery recommending patient follow-up in the lymphedema clinic. 2-D echo was completed showing an EF of 55-60%. CTA negative for PE. Patient requesting Lasix be decreased due to feeling dehydrated. Patient denies chest pain or shortness of breath. Patient denies nausea vomiting or diarrhea. Patient denies any urinary burning or frequency. On 11/08/2020 Patient was seen and examined on the medical floor, he is alert and oriented x 3 in no distress, he denies any complaints there is no fever or chills no headache or dizziness no chest pain no shortness of breath no palpitation no cough no nausea or vomiting no abdominal pain no diarrhea no blood in the stools no burning with urination no frequency or urgency and no hematuria, patient is still complaining of significant pain and swelling in the lower extremities, he has significant anemia, and has evidence of iron deficiency and vitamin B12 deficiency, will replace, continue with IV antibiotics continue with physical therapy and occupational therapy. On 11/09/2020 Patient was seen and examined on the medical floor, he is alert and oriented x 3 in no distress, he denies any complaints there is no fever or chills no headache or dizziness no chest pain no shortness of breath no palpitation no cough no nausea or vomiting no abdominal pain no diarrhea no blood in the stools no burning with urination no frequency or urgency and no hematuria, continue IV antibiotic IV iron and vitamin B12 supplements, continue with physical therapy, will follow in a.m. On 11/10/2020 Patient was seen and examined on the medical floor, he is alert and oriented x 3 in no distress, he denies any complaints there is no fever or chills no headache or dizziness no chest pain no shortness of breath no palpitation no cough no nausea or vomiting no abdominal pain no diarrhea no blood in the stools no burning with urination no frequency or urgency and no hematuria, there is no weakness or numbness in any of the extremities no change in vision speech or gait., Patient still has significant bilateral lower extremity swelling, he has Layton wraps bilaterally at this time. Objective - Vital Signs Vital signs: Vital Signs Temp 98.1 F 11/10/20 02:00 Pulse 71 11/10/20 02:00 Resp 20 11/10/20 02:00 BP 167/71 11/10/20 02:00 Pulse Ox 97 11/10/20 02:00 Intake & Output 11/09/20 11/10/20 11/10/20 18:59 06:59 18:59 Intake Total 620 Output Total 600 200 Balance 20 -200 Intake: Intake, IV Titration 100 Amount Sodium Ferric Gluconat- 100 Sucrose 125 mg In Sodium Chloride 0.9% 100 ml @ 100 mls/hr IVPB ONCE ONE Rx#:[id number] Oral 520 Output: Urine 600 200 Other: Voiding Method Toilet Urinal # Voids 1 - Exam Head normocephalic Neck supple Lungs clear to auscultation bilaterally no wheezing or crackles Heart regular rate and rhythm S1-S2, no rub or gallop Abdomen is soft nontender nondistended positive bowel sounds no hepatosplenomegaly Extremities +3 lower extremity edema and pedal edema bilaterally. Multiple blisters to bilateral shins erythema noted bilaterally Neuro alert and orientated to 3 - Labs CBC & Chem 7: 11/09/20 07:01 11/10/20 06:41 Labs: Abnormal Lab Results - Last 24 Hours (Table) 11/09/20 11/09/20 11/09/20 Range/Units 07:01 07:01 07:21 RBC 4.12 L (4.30-5.90) m/uL Hgb 8.9 L (13.0-17.5) gm/dL Hct 30.1 L (39.0-53.0) % MCV 73.1 L (80.0-100.0) fL MCH 21.6 L (25.0-35.0) pg MCHC 29.6 L (31.0-37.0) g/dL RDW 17.7 H (11.5-15.5) % Potassium 3.3 L (3.5-5.5) mmol/L POC Glucose (mg/dL) 102 H (75-99) mg/dL 11/09/20 11/09/20 11/09/20 Range/Units 11:30 16:40 21:44 RBC (4.30-5.90) m/uL Hgb (13.0-17.5) gm/dL Hct (39.0-53.0) % MCV (80.0-100.0) fL MCH (25.0-35.0) pg MCHC (31.0-37.0) g/dL RDW (11.5-15.5) % Potassium (3.5-5.5) mmol/L POC Glucose (mg/dL) 201 H 161 H 261 H (75-99) mg/dL Microbiology - Last 24 Hours (Table) 11/05/20 19:56 Blood Culture - Preliminary Blood No Growth after 96 hours Assessment and Plan Assessment: 1. Bilateral lower extremity edema with blisters. Infectious disease and vascular surgery consulted patient currently on cefazolin per infectious disease. Patient was evaluated by Dr. Nicole recommendation patient follow-up in the lymphedema clinic 2. Elevated d-dimer. Venous Doppler negative. CTA of the chest negative for PE 3. History of COPD 4. Morbid obesity 5. Obstructive sleep apnea. Home CPAP machine at bedside 6. History of essential hypertension 7. History of hyperlipidemia 8. Hypothyroidism 9. BPH. 10. Diabetes mellitus type 2. Home meds resumed and sliding scale coverage added. A1c 7.4 this does appear improved DVT prophylaxis Lovenox. GI prophylaxis Infectious disease and vascular surgery consulted Blood culture ordered Repeat labs ordered
[2020-11-10] MEDS: ACETAMINOPHEN TAB 325 MG TAB PO SCH (15:40)
[2020-11-10 17:05] LABS: Glucose,Whole Blood 138 mg/dL (75-99)
--- NOTE | 2020-11-10 18:50 | PN ---
PROGRESS NOTE DATE OF SERVICE: 11/10/2020 REASON FOR FOLLOWUP VISIT: Bilateral lower extremity lymphedema and cellulitis. INTERVAL HISTORY: Patient is currently afebrile. The patient is breathing comfortably. Denies having any chest pain. No shortness of breath or cough. No abdominal pain or pain to the lower extremities. PHYSICAL EXAMINATION: VITAL SIGNS: Blood pressure 131/71 with a pulse of 70, temperature 98.5, he is 96% on room air. GENERAL DESCRIPTION: An elderly male up in the bed in no distress. RESPIRATORY SYSTEM: Unlabored breathing, clear to auscultation anteriorly. HEART: S1, S2. Regular rate and rhythm. ABDOMEN: Soft, no tenderness. EXTREMITIES: Legs are currently wrapped with no obvious drainage on the dressing. LABS: BUN of 13, creatinine 0.78. Blood culture has been negative. DIAGNOSTIC IMPRESSION AND PLAN: Patient has bilateral lower extremity lymphedema and concern for possible cellulitis covered Cefazolin. Layton wraps to legs to keep the swelling down and monitor clinical course closely. MMODL / IJN: [id number] /
[2020-11-10 21:03] LABS: Glucose,Whole Blood 269 mg/dL (75-99)
[2020-11-10] MEDS: ATORVASTATIN 20 MG TAB PO SCH (21:12)
[2020-11-10] MEDS: ENOXAPARIN 40 MG/0.4 ML SYRINGE SQ SCH (21:12)
[2020-11-10] MEDS: INSULIN DETEMIR (LEVEMIR) 100 UNIT/ML SYR SQ SCH (21:12)
[2020-11-10 23:09] LABS: Glucose,Whole Blood 266 mg/dL (75-99)
[2020-11-11] MEDS: HYDROcodone/APAP 10-325MG 1 EACH TAB PO PRN ×3 (05:50→22:29)
[2020-11-11] MEDS: LEVOTHYROXINE 25 MCG TAB PO SCH (05:50)
[2020-11-11] MEDS: INSULIN ASPART (NovoLOG) 100 UNIT/ML VIAL SQ SCH ×4 (07:36→22:27)
[2020-11-11 08:01] LABS: Glucose,Whole Blood 85 mg/dL (75-99)
[2020-11-11 08:01] LABS: Glucose,Whole Blood 52 mg/dL (75-99)
[2020-11-11 08:01] LABS: Glucose,Whole Blood 53 mg/dL (75-99)
[2020-11-11] MEDS: FUROSEMIDE 40 MG TAB PO SCH ×2 (08:33→14:55)
[2020-11-11] MEDS: DOCUSATE 100 MG CAP PO SCH (08:33)
[2020-11-11] MEDS: hydrALAZINE HCL 50 MG TAB PO SCH ×2 (08:34→22:29)
[2020-11-11] MEDS: lisinopriL 20 MG TAB PO SCH ×2 (08:34→22:30)
[2020-11-11] MEDS: cloNIDine HCL 0.1 MG TAB PO SCH ×3 (08:34→22:28)
[2020-11-11] MEDS: PANTOPRAZOLE 40 MG TABLET PO SCH (08:34)
[2020-11-11] MEDS: POTASSIUM CHLORIDE ER 10 MEQ TAB.ER.PRT PO SCH (08:34)
[2020-11-11] MEDS: amLODIPine 5 MG TAB PO SCH (08:34)
[2020-11-11] MEDS: carvediloL 12.5 MG TAB PO SCH ×2 (08:34→22:30)
[2020-11-11] MEDS: CYANOCOBALAMIN 500 MCG TAB PO SCH (08:34)
[2020-11-11] MEDS: TAMSULOSIN 0.4 MG CAP.ER.24H PO SCH ×2 (08:34→22:29)
[2020-11-11 12:00] LABS: Glucose,Whole Blood 144 mg/dL (75-99)
[2020-11-11] MEDS: ACETAMINOPHEN TAB 325 MG TAB PO SCH (14:55)
--- NOTE | 2020-11-11 16:45 | P.PN ---
Subjective Progress Note Date: 11/11/20 This is a 70-year-old male patient who was a direct admit from his PCP with concerns of increased swelling and redness to lower extremities. Patient reports that he's had increased swelling over the past few months with blistering to by low bilateral lower extremity. Patient reports some pain. Patient denies fever at home. Patient does have a past medical history of morbid obesity, sleep apnea requiring CPAP machine, COPD, diabetes mellitus, hyperlipidemia, hypertension, prostate disorder, thyroid disorder and anemia. Chest x-ray was completed showing no active cardio pulmonary disease normal h eart. BNP 357. D-dimer was elevated at 3.10. Venous Doppler was completed showing no evident for Deep vein thrombosis. CT of the chest also ordered for elevated d-dimer. Infectious disease and vascular surgery consulted. Patient has remained afebrile. 2-D echo ordered. Blood culture ordered. At this time patient denies any chest pain or shortness of breath. Patient denies nausea vomiting or diarrhea. Patient denies any urinary burning or frequency On 11/07/2020 patient is alert and oriented 3. Patient maintained was old per infectious disease. Patient also evaluated by vascular surgery recommending patient follow-up in the lymphedema clinic. 2-D echo was completed showing an EF of 55-60%. CTA negative for PE. Patient requesting Lasix be decreased due to feeling dehydrated. Patient denies chest pain or shortness of breath. Patient denies nausea vomiting or diarrhea. Patient denies any urinary burning or frequency. On 11/08/2020 Patient was seen and examined on the medical floor, he is alert and oriented x 3 in no distress, he denies any complaints there is no fever or chills no headache or dizziness no chest pain no shortness of breath no palpitation no cough no nausea or vomiting no abdominal pain no diarrhea no blood in the stools no burning with urination no frequency or urgency and no hematuria, patient is still complaining of significant pain and swelling in the lower extremities, he has significant anemia, and has evidence of iron deficiency and vitamin B12 deficiency, will replace, continue with IV antibiotics continue with physical therapy and occupational therapy. On 11/09/2020 Patient was seen and examined on the medical floor, he is alert and oriented x 3 in no distress, he denies any complaints there is no fever or chills no headache or dizziness no chest pain no shortness of breath no palpitation no cough no nausea or vomiting no abdominal pain no diarrhea no blood in the stools no burning with urination no frequency or urgency and no hematuria, continue IV antibiotic IV iron and vitamin B12 supplements, continue with physical therapy, will follow in a.m. On 11/10/2020 Patient was seen and examined on the medical floor, he is alert and oriented x 3 in no distress, he denies any complaints there is no fever or chills no headache or dizziness no chest pain no shortness of breath no palpitation no cough no nausea or vomiting no abdominal pain no diarrhea no blood in the stools no burning with urination no frequency or urgency and no hematuria, there is no weakness or numbness in any of the extremities no change in vision speech or gait., Patient still has significant bilateral lower extremity swelling, he has Layton wraps bilaterally at this time. On 11/11/2020 Patient was seen and examined on the medical floor, he is alert and oriented x 3 in no distress, he denies any complaints there is no fever or chills no headache or dizziness no chest pain no shortness of breath no palpitation no cough no nausea or vomiting no abdominal pain no diarrhea no blood in the stools no burning with urination no frequency or urgency and no hematuria, patient had skin rash and itching last night, at this time will discontinue IV antibiotics, patient has an ALLERGY to penicillin and amoxicillin and possibly he is having some cross ALLERGY to cefazolin. will start patient on on Bactrim DS 1 twice daily, will discontinue potassium supplements due to possible interaction with Bactrim, will monitor till tomorrow possible discharge to home tomorrow Objective - Vital Signs Vital signs: Vital Signs Temp 98.0 F 11/11/20 08:00 Pulse 67 11/11/20 08:00 Resp 22 11/11/20 08:00 BP 173/65 11/11/20 08:00 Pulse Ox 97 11/11/20 08:00 Intake & Output 11/10/20 11/11/20 11/11/20 18:59 06:59 18:59 Intake Total 650 240 Output Total 900 800 Balance -250 -800 240 Intake: IV 50 ceFAZolin 2 gm In Sodium 50 Chloride 0.9% 50 ml @ 100 mls/hr IVPB Q8HR [facility] Rx# :[id number] Oral 600 240 Output: Urine 900 800 Other: Voiding Method Toilet Urinal - Exam Head normocephalic Neck supple Lungs clear to auscultation bilaterally no wheezing or crackles Heart regular rate and rhythm S1-S2, no rub or gallop Abdomen is soft nontender nondistended positive bowel sounds no hepatosplenomegaly Extremities +3 lower extremity edema and pedal edema bilaterally. Multiple blisters to bilateral shins erythema noted bilaterally Neuro alert and orientated to 3 - Labs CBC & Chem 7: 11/09/20 07:01 11/10/20 06:41 Labs: Abnormal Lab Results - Last 24 Hours (Table) 11/10/20 11/10/20 11/10/20 Range/Units 16:56 21:02 23:08 POC Glucose (mg/dL) 138 H 269 H 266 H (75-99) mg/dL 11/11/20 11/11/20 11/11/20 Range/Units 07:30 07:45 11:52 POC Glucose (mg/dL) 52 L 53 L 144 H (75-99) mg/dL Microbiology - Last 24 Hours (Table) 11/05/20 19:56 Blood Culture - Preliminary Blood No Growth after 120 hours Assessment and Plan Assessment: 1. Bilateral lower extremity edema with blisters. Infectious disease and vascular surgery consulted patient currently on cefazolin per infectious disease. Patient was evaluated by Dr. Nicole recommendation patient follow-up in the lymphedema clinic 2. Elevated d-dimer. Venous Doppler negative. CTA of the chest negative for PE 3. History of COPD 4. Morbid obesity 5. Obstructive sleep apnea. Home CPAP machine at bedside 6. History of essential hypertension 7. History of hyperlipidemia 8. Hypothyroidism 9. BPH. 10. Diabetes mellitus type 2. Home meds resumed and sliding scale coverage added. A1c 7.4 this does appear improved DVT prophylaxis Lovenox. GI prophylaxis Infectious disease and vascular surgery consulted Blood culture ordered Repeat labs ordered
[2020-11-11 17:18] LABS: Glucose,Whole Blood 206 mg/dL (75-99)
[2020-11-11] MEDS ORDERED: INSULIN DETEMIR (LEVEMIR) 100 UNIT/ML SYR SQ SCH (21:00)
[2020-11-11 21:56] LABS: Glucose,Whole Blood 262 mg/dL (75-99)
[2020-11-11] MEDS: SULFAMETHOX-TMP 800-160MG 1 EACH TAB PO SCH (22:27)
[2020-11-11] MEDS: ENOXAPARIN 40 MG/0.4 ML SYRINGE SQ SCH (22:28)
[2020-11-11] MEDS: ATORVASTATIN 20 MG TAB PO SCH (22:28)
[2020-11-11] MEDS: CEPHALEXIN 500 MG CAP PO SCH (22:29)
--- NOTE | 2020-11-12 00:12 | PN ---
PROGRESS NOTE DATE OF SERVICE: 11/11/2020 REASON FOR FOLLOWUP: Bilateral lower extremity cellulitis. INTERVAL HISTORY: Patient is currently afebrile. The patient is breathing comfortably. Patient denies having any chest pain. No shortness of breath or cough. No abdominal pain or pain to the lower extremity. PHYSICAL EXAMINATION: Blood pressure 155/70 with a pulse of 75, temperature 98.1. He is 95%. GENERAL DESCRIPTION is an elderly male lying in in no distress. RESPIRATORY SYSTEM: Unlabored breathing, clear to auscultation anteriorly. HEART S1, S2. Regular rate and rhythm. ABDOMEN: Soft, no tenderness. LEGS are currently wrapped up. No obvious drainage on the dressing. DIAGNOSTIC IMPRESSION AND PLAN: Patient with bilateral lower extremity lymphedema, swelling, minimal redness, concern for possible cellulitis. Has completed a course of cefazolin. Antibiotic adjusted to oral Keflex for about a week. Continue with Layton wrap to the leg to keep the swelling down and continue supportive care. MMODL / IJN: [id number] /
[2020-11-12 02:40] LABS: Glucose,Whole Blood 167 mg/dL (75-99)
[2020-11-12 02:42] VITALS: PULSE 66
[2020-11-12] MEDS: LEVOTHYROXINE 25 MCG TAB PO SCH (05:55)
[2020-11-12 06:55] LABS: Glucose,Whole Blood 136 mg/dL (75-99)
[2020-11-12] MEDS ORDERED: carvediloL 3.125 MG TAB PO SCH (07:30)
[2020-11-12 08:30] VITALS: BP 132/64; RESP 15; TEMP 97.6
[2020-11-12] MEDS: DOCUSATE 100 MG CAP PO SCH (08:33)
[2020-11-12] MEDS: TAMSULOSIN 0.4 MG CAP.ER.24H PO SCH (08:33)
[2020-11-12] MEDS: CYANOCOBALAMIN 500 MCG TAB PO SCH (08:33)
[2020-11-12] MEDS: INSULIN ASPART (NovoLOG) 100 UNIT/ML VIAL SQ SCH (08:33)
[2020-11-12] MEDS: cloNIDine HCL 0.1 MG TAB PO SCH (08:33)
[2020-11-12] MEDS: amLODIPine 5 MG TAB PO SCH (08:33)
[2020-11-12] MEDS: PANTOPRAZOLE 40 MG TABLET PO SCH (08:34)
[2020-11-12] MEDS: hydrALAZINE HCL 50 MG TAB PO SCH (08:34)
[2020-11-12] MEDS: carvediloL 12.5 MG TAB PO SCH (08:34)
[2020-11-12] MEDS: CEPHALEXIN 500 MG CAP PO SCH (08:34)
[2020-11-12] MEDS: FUROSEMIDE 40 MG TAB PO SCH (08:34)
[2020-11-12] MEDS: SULFAMETHOX-TMP 800-160MG 1 EACH TAB PO SCH (08:34)
[2020-11-12] MEDS: lisinopriL 20 MG TAB PO SCH (08:34)
[2020-11-12 11:28] LABS: Basophils # (A) 0.04 X 10*3/uL (0.00-0.10); Basophils % (A) 0.5 %; Eosinophils # (A) 0.17 X 10*3/uL (0.04-0.35); HCT 29.7 % (39.6-50.0); HGB 8.5 g/dL (13.0-17.0); Lymphocytes # (A) 1.55 X 10*3/uL (0.90-5.00); MCH 21.9 pg (27.0-32.0); MCHC 28.6 g/dL (32.0-37.0); MCV 76.3 fL (80.0-97.0); Mean Platelet Volume 9.8 fL (9.5-12.2); Monocytes # (A) 0.78 X 10*3/uL (0.20-1.00); Monocytes % (A) 9.1 %; Neutrophils % (A) 69.7 %; Platelet Count 377 X 10*3/uL (140-440); RBC 3.89 X 10*6/uL (4.40-5.60)
[2020-11-12 11:33] LABS: Glucose,Whole Blood 117 mg/dL (75-99)
[2020-11-12 11:39] LABS: African American GFR (CKD) 86.8 (60.0-200.0); Albumin 4.2 g/dL (3.80-4.90); Anion Gap 8.4 mmol/L (4.00-12.00); Calcium 9.2 mg/dL (8.7-10.3); Carbon Dioxide 29.6 mmol/L (21.6-31.8); Globulin 2.1 g/dL (1.6-3.3); Non-African American GFR(CKD) 74.9 (60.0-200.0); Potassium 3.8 mmol/L (3.5-5.5); Total Bilirubin 0.6 mg/dL (0.3-1.2); Total Protein 6.3 g/dL (6.2-8.2)
--- NOTE | 2020-11-15 11:36 | P.DS ---
Providers Date of admission: 11/05/20 16:46 Expected date of discharge: 11/12/20 Attending physician: Aquilino Garber Consults: 11/05/20 19:54 Consult Physician Routine Consulting Provider: Ish Nicole Consult Reason/Comments: Severe swelling Do you want consulting provider notified?: Yes Consult Physician Routine Consulting Provider: Jovita Mcnally Consult Reason/Comments: Lower extremity cellulitis Do you want consulting provider notified?: Yes Primary care physician: Aquilino Garber [facility] Course: Diagnosis on discharge: 1. Bilateral lower extremity edema with blisters. Infectious disease and vascular surgery consulted patient currently on cefazolin per infectious disease. Patient was evaluated by Dr. Nicole recommendation patient follow-up in the lymphedema clinic Patient has Lymphedema, venous stasis dermatitis, and bilateral lower extremities cellulitis 2. Elevated d-dimer. Venous Doppler negative. CTA of the chest negative for PE 3. History of COPD 4. Morbid obesity 5. Obstructive sleep apnea. Home CPAP machine at bedside 6. History of essential hypertension 7. History of hyperlipidemia 8. Hypothyroidism 9. BPH. 10. Diabetes mellitus type 2. Home meds resumed and sliding scale coverage added. A1c 7.4 this does appear improved. Hospital course: This is a 70-year-old male patient who was a direct admit from his PCP with concerns of increased swelling and redness to lower extremities. Patient reports that he's had increased swelling over the past few months with blistering to by low bilateral lower extremity. Patient reports some pain. Patient denies fever at home. Patient does have a past medical history of morbid obesity, sleep apnea requiring CPAP machine, COPD, diabetes mellitus, hyperlipidemia, hypertension, prostate disorder, thyroid disorder and anemia. Chest x-ray was completed showing no active cardio pulmonary disease normal heart. BNP 357. D-dimer was elevated at 3.10. Venous Doppler was completed showing no evident for Deep vein thrombosis. CT of the chest also ordered for elevated d-dimer. Infectious disease and vascular surgery consulted. Patient has remained afebrile. 2-D echo ordered. Blood culture ordered. At this time patient denies any chest pain or shortness of breath. Patient denies nausea vomiting or diarrhea. Patient denies any urinary burning or frequency On 11/07/2020 patient is alert and oriented 3. Patient maintained was old per infectious disease. Patient also evaluated by vascular surgery recommending patient follow-up in the lymphedema clinic. 2-D echo was completed showing an EF of 55-60%. CTA negative for PE. Patient requesting Lasix be decreased due to feeling dehydrated. Patient denies chest pain or shortness of breath. Patient denies nausea vomiting or diarrhea. Patient denies any urinary burning or frequency. On 11/08/2020 Patient was seen and examined on the medical floor, he is alert and oriented x 3 in no distress, he denies any complaints there is no fever or chills no headache or dizziness no chest pain no shortness of breath no palpitation no cough no nausea or vomiting no abdominal pain no diarrhea no blood in the stools no burning with urination no frequency or urgency and no hematuria, patient is still complaining of significant pain and swelling in the lower extremities, he has significant anemia, and has evidence of iron deficiency and vitamin B12 deficiency, will replace, continue with IV antibiotics continue with physical therapy and occupational therapy. On 11/09/2020 Patient was seen and examined on the medical floor, he is alert and oriented x 3 in no distress, he denies any complaints there is no fever or chills no headache or dizziness no chest pain no shortness of breath no palpitation no cough no nausea or vomiting no abdominal pain no diarrhea no blood in the stools no burning with urination no frequency or urgency and no hematuria, continue IV antibiotic IV iron and vitamin B12 supplements, continue with physical therapy, will follow in a.m. On 11/10/2020 Patient was seen and examined on the medical floor, he is alert and oriented x 3 in no distress, he denies any complaints there is no fever or chills no headache or dizziness no chest pain no shortness of breath no palpitation no cough no nausea or vomiting no abdominal pain no diarrhea no blood in the stools no burning with urination no frequency or urgency and no hematuria, there is no weakness or numbness in any of the extremities no change in vision speech or gait., Patient still has significant bilateral lower extremity swelling, he has Layton wraps bilaterally at this time. On 11/11/2020 Patient was seen and examined on the medical floor, he is alert and oriented x 3 in no distress, he denies any complaints there is no fever or chills no headache or dizziness no chest pain no shortness of breath no palpitation no cough no nausea or vomiting no abdominal pain no diarrhea no blood in the stools no burning with urination no frequency or urgency and no hematuria, patient had skin rash and itching last night, at this time will discontinue IV antibiotics, patient has an ALLERGY to penicillin and amoxicillin and possibly he is having some cross ALLERGY to cefazolin. will start patient on on Bactrim DS 1 twice daily, will discontinue potassium supplements due to possible interaction with Bactrim, will monitor till tomorrow possible discharge to home tomorrow On 11/12/2020 patient to be discharged home on Bactrim and follow-up with Dr. Nicole for further management of lymphedema. This time patient denies chest pain or shortness breath. Patient denies nausea vomiting or diarrhea. Patient denies any urinary burning or frequency Patient Condition at Discharge: Stable Plan - Discharge Summary Discharge Rx Participant: No New Discharge Prescriptions: New Docusate [Colace] 100 mg PO DAILY cap Pantoprazole [Protonix] 40 mg PO AC-BRKFST tablet. Cyanocobalamin [Vitamin B-12] 1,000 mcg PO DAILY tab Sulfamethox-Tmp 800-160Mg [Bactrim DS 800-160 mg] 1 each PO BID tab Continue Atorvastatin [Lipitor] 20 mg PO HS Furosemide 40 mg PO BID Hydrocodone/Acetaminophen [Hydrocodone-Acetamin 10-325 mg] 1 tab PO QID PRN PRN Reason: Pain Levothyroxine Sodium [Synthroid] 25 mcg PO DAILY lisinopriL [Lisinopril] 20 mg PO BID metFORMIN HCL 1,000 mg PO BID Potassium Chloride [Klor-Con M10] 10 meq PO BID Insulin Glargine,Hum.rec.anlog [Toujeo Solostar] 100 units SQ HS Tamsulosin [Flomax] 0.4 mg PO BID amLODIPine [Norvasc] 5 mg PO DAILY Carvedilol [Coreg] 25 mg PO BID hydrALAZINE HCL [Apresoline] 50 mg PO BID Acetaminophen [Tylenol Arthritis] 650 mg PO W/SUPPER cloNIDine HCL [Catapres] 0.3 mg PO TID Insulin Lispro [humaLOG Kwikpen] See Protocol SQ AC-TID Discharge Medication List Atorvastatin [Lipitor] 20 mg PO HS 03/06/16 [History] Furosemide 40 mg PO BID 03/06/16 [History] Hydrocodone/Acetaminophen [Hydrocodone-Acetamin 10-325 mg] 1 tab PO QID PRN 03/06/16 [History] Levothyroxine Sodium [Synthroid] 25 mcg PO DAILY 03/06/16 [History] Potassium Chloride [Klor-Con M10] 10 meq PO BID 03/06/16 [History] lisinopriL [Lisinopril] 20 mg PO BID 03/06/16 [History] metFORMIN HCL 1,000 mg PO BID 03/06/16 [History] Insulin Glargine,Hum.rec.anlog [Toujeo Solostar] 100 units SQ HS 02/16/17 [History] Tamsulosin [Flomax] 0.4 mg PO BID 11/17/17 [History] Acetaminophen [Tylenol Arthritis] 650 mg PO W/SUPPER 11/05/20 [History] Carvedilol [Coreg] 25 mg PO BID 11/05/20 [History] Insulin Lispro [humaLOG Kwikpen] See Protocol SQ AC-TID 11/05/20 [History] amLODIPine [Norvasc] 5 mg PO DAILY 11/05/20 [History] cloNIDine HCL [Catapres] 0.3 mg PO TID 11/05/20 [History] hydrALAZINE HCL [Apresoline] 50 mg PO BID 11/05/20 [History] Cyanocobalamin [Vitamin B-12] 1,000 mcg PO DAILY tab 11/12/20 [Rx] Docusate [Colace] 100 mg PO DAILY cap 11/12/20 [Rx] Pantoprazole [Protonix] 40 mg PO AC-BRKFST tablet. 11/12/20 [Rx] Sulfamethox-Tmp 800-160Mg [Bactrim DS 800-160 mg] 1 each PO BID tab 11/12/20 [Rx] Patient Instructions/Handouts: Cellulitis (DC), Leg Edema (ED) Activity/Diet/Wound Care/Special Instructions: please call Amanda at [phone] [facility] physical therapy for placement of compression devices Discharge Disposition: HOME SELF-CARE
--- NOTE | 2020-11-15 17:17 | P.PN ---
Progress Note - Text Progress Note Date: 11/12/20 REASON FOR FOLLOWUP: Bilateral lower extremity cellulitis. INTERVAL HISTORY: Patient is afebrile. The patient is breathing comfortably. Patient denies having any chest pain. No shortness of breath or cough. No abdominal pain or any diarrhea The patient pain to the lower extremity is currently controlled PHYSICAL EXAMINATION: Blood pressure 150/70 with a pulse of 70, temperature 98.1. He is 94% on room air. GENERAL DESCRIPTION is an elderly male lying in in no distress. RESPIRATORY SYSTEM: Unlabored breathing, clear to auscultation anteriorly. HEART S1, S2. Regular rate and rhythm. ABDOMEN: Soft, no tenderness. LEGS are currently wrapped up. No obvious drainage on the dressing. LABS: Reviewed DIAGNOSTIC IMPRESSION AND PLAN: Patient with bilateral lower extremity lymphedema, swelling, minimal redness, concern for possible cellulitis. Has completed a course of cefazolin. Antibiotic adjusted to oral Bactrim DS for about a week on discharge. Continue with Layton wrap to the leg to keep the swelling down and continue supportive care.
== END 2020-11-12 13:40 | disposition home or self-care (01) | DRG 638 ==
LOC: 4SSUR 16:46
PROVIDERS: ADMIT Internal Medicine; ATTEND Internal Medicine
DX: E13.628 Other specified diabetes mellitus with other skin complications (principal); L03.116 Cellulitis of left lower limb; L03.115 Cellulitis of right lower limb; D50.9 Iron deficiency anemia, unspecified; E53.8 Deficiency of other specified B group vitamins; E66.01 Morbid (severe) obesity due to excess calories; E78.5 Hyperlipidemia, unspecified; E89.0 Postprocedural hypothyroidism; G47.33 Obstructive sleep apnea (adult) (pediatric); G89.29 Other chronic pain; M25.569 Pain in unspecified knee; Z99.89 Dependence on other enabling machines and devices; I10 Essential (primary) hypertension; I87.2 Venous insufficiency (chronic) (peripheral); J44.9 Chronic obstructive pulmonary disease, unspecified; N40.0 Benign prostatic hyperplasia without lower urinary tract symptoms; Z79.4 Long term (current) use of insulin; Z53.9 Procedure and treatment not carried out, unspecified reason; I89.0 Lymphedema, not elsewhere classified; Z79.890 Hormone replacement therapy; Z79.899 Other long term (current) drug therapy; Z82.49 Family history of ischemic heart disease and other diseases of the circulatory system; Z82.5 Family history of asthma and other chronic lower respiratory diseases; Z83.3 Family history of diabetes mellitus; Z87.442 Personal history of urinary calculi; Z87.891 Personal history of nicotine dependence; Z88.0 Allergy status to penicillin; Z88.1 Allergy status to other antibiotic agents; Z98.890 Other specified postprocedural states
CPT/HCPCS: 71045; 71275; 80053; 82607; 82746; 83036; 83540; 83550; 83880; 84443; 85025; 85379; 87040; 93306; 93970

== ENCOUNTER 2024-01-12 10:43 | Inpatient (IN) | payer MEDICARE ==
[2024-01-12] MEDS: ASPIRIN 81 MG PO STA (11:44)
[2024-01-12 11:54] LABS: Anisocytosis Slight; Basophils % (A) 0 %; Eosinophils % (A) 1 %; HCT 31.8 % (39.0-53.0); HGB 9.7 gm/dL (13.0-17.5); Hypochromasia Marked; Lymphocytes % (A) 21 %; MCH 24.1 pg (25.0-35.0); MCHC 30.5 g/dL (31.0-37.0); Mean Platelet Volume 6.5; Microcytosis Slight; Monocytes # (A) 0.5 k/uL (0-1.0); Monocytes % (A) 10 %; Neutrophils # (A) 3.4 k/uL (1.3-7.7); Neutrophils % (A) 67 %; Platelet Count 315 k/uL (150-450); RBC 4.02 m/uL (4.30-5.90); RDW 18.2 % (11.5-15.5)
[2024-01-12 12:12] LABS: ALT 15 U/L (4-49); AST 24 U/L (17-59); African American GFR (CKD) >90 (>60 ml/min/1.73 sqM); Albumin 3.7 g/dL (3.5-5.0); Alkaline Phosphatase 115 U/L (38-126); Anion Gap 11 mmol/L; Blood Urea Nitrogen 11 mg/dL (9-20); Calcium 9.2 mg/dL (8.4-10.2); Carbon Dioxide 26 mmol/L (22-30); Chloride 100 mmol/L (98-107); Glucose 150 mg/dL (74-99); Magnesium 1.2 mg/dL (1.6-2.3); Non-African American GFR(CKD) >90 (>60 ml/min/1.73 sqM); Potassium 3.6 mmol/L (3.5-5.1); Sodium 137 mmol/L (137-145); Total Bilirubin 1.9 mg/dL (0.2-1.3); Total Protein 6.4 g/dL (6.3-8.2)
[2024-01-12 12:13] LABS: INR 1.3 (<1.2); Partial Thromboplastin Time 23.1 sec (22.0-30.0); Prothrombin Time 13.9 sec (10.0-12.5)
[2024-01-12 12:19] LABS: NT-Pro-B-Type Natriuretic Pept 4120 pg/mL
--- NOTE | 2024-01-12 12:28 | XR ---
EXAMINATION TYPE: XR chest 2V DATE OF EXAM: 01/12/2024 12:02 PM CLINICAL INDICATION:Male, 73 years old with history of Chest Pain; COMPARISON: 11/01/2020 TECHNIQUE: XR chest 2V Frontal view of the chest. FINDINGS: Lungs/Pleura: There is no evidence of pleural effusion, focal consolidation, or pneumothorax. Pulmonary vascularity: Unremarkable. Heart/mediastinum: Cardiomediastinal silhouette is unremarkable. Musculoskeletal: No acute osseous pathology. Other findings: None IMPRESSION: No acute cardiopulmonary disease/process.
[2024-01-12] MEDS: DILTIAZEM DRIP BOLUS FROM BAG 1 MG SOLN IV ONE (13:14)
[2024-01-12] MEDS: DILTIAZEM 125 MG in SODIUM CHLORIDE 0.9% 100 ML IV SCH (13:15)
[2024-01-12] MEDS: MAGNESIUM SULFATE-D5W PMX 1 GM in DEXTROSE/WATER 1 100ML.BAG IVPB ONE (13:16)
--- NOTE | 2024-01-12 13:38 | CT ---
EXAMINATION TYPE: CT chest angio for PE DATE OF EXAM: 01/12/2024 COMPARISON: 11/06/2020 and radiograph same day HISTORY: 73-year-old male SOB TECHNIQUE: Contiguous axial scanning of the chest performed with IV Contrast, patient injected with 1 00 ml mL of Isovue 370. Coronal/sagittal MIP reconstructions performed. CT DLP: 689.3 mGycm Automated exposure control for dose reduction was used. FINDINGS: Prominent generalized anasarca change. The heart is borderline in size with small pericardial effusion measuring up to 7 mm thick. No flatte emmanuel of the interventricular septum though there is refluxing contrast into the distended IVC and hep atic veins. LCA, LAD, and circumflex coronary artery calcifications are noted. There is conventional arterial vessel branching anatomy. 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 1.7 cm right hilar lymph node slightly more prominent, likely reactive. A few scattered prominent but nonenlarged mediastinal lymph nodes are demonstrated. Marked asymmetric enlargement of the right thyroid lobe up to at least 6.7 cm also present previously . Correlate with any prior workup. Only slight mass effect onto the trachea. Satisfactory opacification of the pulmonary arterial system without evidence for pulmonary embolus. There is a [id number] right pleural effusion. Some mild septal lines in the upper and lower tenzin ngs but without deion consolidation. Mild central interstitial thickening. Visualized upper abdomen is partially visualized 5 mm gallstone. Similar diffuse thickening of the bi lateral adrenal glands. Mixed fat and soft tissue density nodule of the right adrenal gland measuring 1.7 cm redemonstrated. 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 Mild perihepatic and perisplenic ascites. Bones: Extensive changes of DISH. Degenerative change bilateral sternoclavicular joints. Osteopenia. Fatty matrix hemangioma posterior aspect of the T11 vertebral body redemonstrated. IMPRESSION: 1. CONSTELLATION OF FINDINGS INCLUDING ANASARCA, SMALL TO MODERATE RIGHT PLEURAL EFFUSION, BORDERLINE CARDIOMEGALY, REFLUXING CONTRAST INTO THE IVC/HEPATIC VEINS, AND MILD UPPER ABDOMINAL ASCITES. FINDI NGS SUGGEST FLUID OVERLOAD STATE. 2. SOME MILD SCATTERED SEPTAL LINES IN THE LUNG SUGGESTS PULMONARY VASCULAR CONGESTION. 3. NO EVIDENCE FOR PULMONARY EMBOLUS. 4. MARKED ENLARGEMENT OF THE RIGHT LOBE OF THE THYROID GLAND UP TO AT LEAST 6.7 CM. THIS WAS PRESENT BACK IN 2020 WELL. CORRELATE WITH ANY PREVIOUS WORKUP.
[2024-01-12] MEDS ORDERED: NALOXONE 0.4 MG/ML 1 ML VIAL IV PRN (13:48)
[2024-01-12] MEDS ORDERED: ONDANSETRON 4 MG/2 ML VIAL IVP PRN (13:48)
[2024-01-12] MEDS ORDERED: DEXTROSE 50% SYRINGE 50 ML IVP PRN ×2 (13:56)
--- NOTE | 2024-01-12 14:16 | ED ---
General Adult HPI - General Chief complaint: Shortness of Breath Stated complaint: edema Time Seen by Provider: 01/12/24 10:56 Source: patient, RN notes reviewed, old records reviewed Mode of arrival: ambulatory Limitations: no limitations - History of Present Illness Initial comments: Patient is a 73-year-old female presents emergency department for placement for debility. Has a history of chronic lymphedema, COPD, diabetes, hypertension, hyperlipidemia. Patient lives at home. Was brought in by son for chronic debility. Patient's recently was admitted to the hospital and he has been at home without help. Struggles to take care of himself at home. Patient's son states he was until recently estranged from both parents and says his father needs help with care at home. Believes his health is deteriorating. Looking for evaluation for outpatient placement. Patient has no acute complaints that are new. Has been dealing with chronic palpitations, chronic lower extremity edema with no new changes. Presents for debility and placement denies chest pain or shortness of breath. Denies abdominal pain, nausea, vomiting. - Related Data Home Medications Medication Instructions Recorded Confirmed Atorvastatin [Lipitor] 20 mg PO DAILY 03/06/16 01/12/24 Furosemide 40 mg PO BID@0900,1600 03/06/16 01/12/24 Levothyroxine Sodium [Synthroid] 25 mcg PO DAILY 03/06/16 01/12/24 Potassium Chloride [Klor-Con M10] 10 meq PO BID 03/06/16 01/12/24 lisinopriL [Lisinopril] 20 mg PO BID 03/06/16 01/12/24 metFORMIN HCL 500 mg PO BID 03/06/16 01/12/24 Tamsulosin [Flomax] 0.4 mg PO BID 11/17/17 01/12/24 Acetaminophen [Tylenol Arthritis] 650 mg PO Q6H PRN 11/05/20 01/12/24 Insulin Lispro [humaLOG Kwikpen] See Protocol SQ TID-W/MEALS 11/05/20 01/12/24 amLODIPine [Norvasc] 5 mg PO DAILY 11/05/20 01/12/24 carvediloL [Coreg] 25 mg PO BID 11/05/20 01/12/24 cloNIDine HCL [Catapres] 0.3 mg PO TID 11/05/20 01/12/24 hydrALAZINE HCL [Apresoline] 50 mg PO BID 11/05/20 01/12/24 Acetaminophen-Codeine 300-30mg 1 tab PO TID PRN 01/12/24 01/12/24 [Tylenol w/codeine #3] Cyclobenzaprine [Flexeril] 10 mg PO TID PRN 01/12/24 01/12/24 Insulin Glargine,Hum.rec.anlog 100 units SQ HS 01/12/24 01/12/24 [Gloria Hernandez] Vitamin B Complex 1 cap PO DAILY 01/12/24 01/12/24 Allergies Allergy/AdvReac Type Severity Reaction Status Date / Time adhesive Allergy BLISTERING Verified 01/12/24 11:31 RASH amoxicillin Allergy Rash/Hives Verified 01/12/24 11:31 Penicillins Allergy Rash/Hives Verified 01/12/24 11:31 pollen extracts Allergy RHINITIS, Verified 01/12/24 11:31 SORE THROAT Review of Systems ROS Statement: Those systems with pertinent positive or pertinent negative responses have been documented in the HPI. Review of Systems: CONST: Denies fever EYES: Denies blurry vision ENT: Denies nasal congestion C/V: Denies Chest pain RESP: Denies shortness of breath GI: Denies abdominal pain : Denies dysuria SKIN: Denies rash. MSK: Endorses chronic lower extremity edema NEURO: Denies headache ROS Other: All systems not noted in ROS Statement are negative. Past Medical History Past Medical History: COPD, Diabetes Mellitus, Eye Disorder, Hyperlipidemia, Hypertension, Prostate Disorder, Sleep Apnea/CPAP/BIPAP, Thyroid Disorder Additional Past Medical History / Comment(s): HX PVC'S. MILD COPD. ANEMIA. HX KIDNEY STONES. BPH. HAD DIABETIC RETINOPATHY TX ON EYES. HAS HAD PICC LINE IN PAST, NOW OUT. CHRONIC BACK AND KNEE PAIN History of Any Multi-Drug Resistant Organisms: None Reported Past Surgical History: Orthopedic Surgery Additional Past Surgical History / Comment(s): RT THYROIDECTOMY. MASS FROM BACK, FATTY TUMOR. NASAL MASS REMOVED. LASER EYES, INTRAOCULAR LENS. WOUND ON RT FOOT I&D. LEFT KNEE ARTHROSCOPY, CYST REMOVED FROM TAILBONE Past Anesthesia/Blood Transfusion Reactions: Previous Problems w/ Anesthesia Additional Past Anesthesia/Blood Transfusion Reaction / Comment(s): OCC TAKES LONG TIME TO AWAKEN. Past Psychological History: No Psychological Hx Reported Smoking Status: Former smoker Past Alcohol Use History: None Reported Past Drug Use History: None Reported - Past Family History Mother Family Medical History: COPD Father Family Medical History: Diabetes Mellitus Additional Family Medical History / Comment(s): heart failure General Exam - General Exam Comments Initial Comments: General: Appears in no acute distress. HEAD: Normal with no signs of head trauma. EYES: PERRLA, EOMI, conjunctiva normal, no discharge. ENT: Hearing grossly intact, normal oropharynx. RESPIRATORY: Clear breath sounds bilaterally. No wheezes, rales, or rhonchi. No hypoxia. No shortness of breath. C/V: Irregular rate and rhythm. S1 and S2 auscultated, significant chronic peripheral edema, peripheral pulses 2+ and intact throughout ABD: Abd is soft, nontender, nondistended EXT: Normal range of motion, no obvious deformity SKIN: No rashes or lesions observed on exposed skin. NEURO: Alert and oriented x 4. No focal deficits. Limitations: no limitations Course Vital Signs 01/12/24 01/12/24 01/12/24 11:02 12:23 13:12 Pulse Rate 124 H 136 H Respiratory 18 20 20 Rate Blood Pressure 124/81 112/86 O2 Sat by Pulse 95 96 Oximetry Medical Decision Making - Medical Decision Making Was pt. sent in by a medical professional or institution (RAYMUNDO Nam, STORE STOCK ASSOCIATE, urgent care, hospital, or snf...) When possible be specific @ -No Did you speak to anyone other than the patient for history (EMS, parent, family, police, friend...)? What history was obtained from this source @ -No Did you review nursing and triage notes (agree or disagree)? Why? @ -I reviewed and agree with nursing and triage notes Were old charts reviewed (outside hosp., previous admission, EMS record, old EKG, old radiological studies, urgent care reports/EKG's, snf records)? Report findings @ -Old charts including our EMR reviewed for previous EKG from November 2017 which revealed right bundle branch block and bifascicular block with no evidence of atrial fibrillation. Differential Diagnosis (chest pain, altered mental status, abdominal pain women, abdominal pain men, vaginal bleeding, weakness, fever, dyspnea, syncope, headache, dizziness, GI bleed, back pain, seizure, CVA, palpatations, mental health, musculoskeletal)? @ -CHF, PE, new onset A-fib with RVR, ACS. This list is not all inclusive. EKG interpreted by me (3pts min.). @ -As above X-rays interpreted by me (1pt min.). @ -Chest x-ray reveals mild pulmonary vascular congestion. CT interpreted by me (1pt min.). @ -CT angiogram of the chest abdomen pelvis to evaluate for PE negative for PE but does show findings consistent with congestive heart failure. U/S interpreted by me (1pt. min.). @ -None done What testing was considered but not performed or refused? (CT, X-rays, U/S, labs)? Why? @ -None What meds were considered but not given or refused? Why? @ -None Did you discuss the management of the patient with other professionals (professionals i.e. , PA, STORE STOCK ASSOCIATE, lab, RT, psych nurse, renal social worker, acid pumper, teacher, loan officer assistant, spring encaser)? Give summary @ -Discussed with the admitting provider, Dr. Garber who accepted the admission. Was smoking cessation discussed for >3mins.? @ -No Was critical care preformed (if so, how long)? @ -Yes, 45 minutes. Were there social determinants of health that impacted care today? How? (Homelessness, low income, unemployed, alcoholism, drug addiction, transportation, low edu. Level, literacy, decrease access to med. care, [place] [facility], rehab)? @ -No Was there de-escalation of care discussed even if they declined (Discuss DNR or withdrawal of care, Hospice)? DNR status @ -No What co-morbidities impacted this encounter? (DM, HTN, Smoking, COPD, CAD, Cancer, CVA, ARF, Chemo, Hep., AIDS, mental health diagnosis, sleep apnea, morbid obesity)? @ -Chronic debility, CHF, chronic lymphedema Was patient admitted / discharged? Hospital course, mention meds given and route, prescriptions, significant lab abnormalities, going to OR and other pertinent info. @ -Based on patient's presentation and physical exam, patient presents emergency department complaining of debility. Incidentally found to be in A-fib with RVR on EKG. We worked the patient up for A-fib with RVR with plan for admission for placement. No other acute complaints at this time. Patient will be treated with a dose of aspirin, and started on a Cardizem drip as well as a heparin drip. Patient was in agreement this plan. EKG shows A-fib with RVR. Chest x-ray unremarkable. Labs remarkable for elevated D-dimer of 0.91. Troponin undetectable. Patient is hypomagnesemic and was replenished. BNP is elevated 4120. On reevaluation, I updated the patient. Due to elevated D-dimer I did recommend CT PE. CT PE returned negative for any obvious pulmonary embolism. I updated the patient at this time. Will continue with therapy. Heart rate is improved. He will be admitted for cardiology evaluation, eval by PT and OT and possible placement. Patient was in agreement this plan. I spoke with the admitting physician, Dr. Garber who accepted the admission. Undiagnosed new problem with uncertain prognosis? @ -No Drug Therapy requiring intensive monitoring for toxicity (Heparin, Nitro, Insulin, Cardizem)? @ -Cardizem, heparin Were any procedures done? @ -No Diagnosis/symptom? @ -New onset atrial fibrillation with RVR, hypomagnesemia, CHF, debility Acute, or Chronic, or Acute on Chronic? @ -Acute Uncomplicated (without systemic symptoms) or Complicated (systemic symptoms)? @ -Complicated Side effects of treatment? @ -No Exacerbation, Progression, or Severe Exacerbation? @ -No Poses a threat to life or bodily function? How? (Chest pain, [place], [place], pneumonia, PE, COPD, DKA, ARF, appy, cholecystitis, CVA, Diverticulitis, Homicidal, Suicidal, threat to staff... and all critical care pts) @ -Yes - Lab Data Result diagrams: 01/12/24 11:36 01/12/24 11:36 Lab Results 01/12/24 01/12/24 01/12/24 Range/Units 11:36 11:36 11:36 WBC 5.0 (3.8-10.6) k/uL RBC 4.02 L (4.30-5.90) m/uL Hgb 9.7 L (13.0-17.5) gm/dL Hct 31.8 L (39.0-53.0) % MCV 79.0 L (80.0-100.0) fL MCH 24.1 L (25.0-35.0) pg MCHC 30.5 L (31.0-37.0) g/dL RDW 18.2 H (11.5-15.5) % Plt Count 315 (150-450) k/uL MPV 6.5 Neutrophils % 67 % Lymphocytes % 21 % Monocytes % 10 % Eosinophils % 1 % Basophils % 0 % Neutrophils # 3.4 (1.3-7.7) k/uL Lymphocytes # 1.0 (1.0-4.8) k/uL Monocytes # 0.5 (0-1.0) k/uL Eosinophils # 0.0 (0-0.7) k/uL Basophils # 0.0 (0-0.2) k/uL Hypochromasia Marked Anisocytosis Slight Microcytosis Slight PT 13.9 H (10.0-12.5) sec INR 1.3 H (<1.2) APTT 23.1 (22.0-30.0) sec D-Dimer 0.91 H (<0.60) mg/L FEU Sodium 137 (137-145) mmol/L Potassium 3.6 (3.5-5.1) mmol/L Chloride 100 (98-107) mmol/L Carbon Dioxide 26 (22-30) mmol/L Anion Gap 11 mmol/L BUN 11 (9-20) mg/dL Creatinine 0.52 L (0.66-1.25) mg/dL Est GFR (CKD-EPI)AfAm >90 (>60 ml/min/1.73 sqM) Est GFR (CKD-EPI)NonAf >90 (>60 ml/min/1.73 sqM) Glucose 150 H (74-99) mg/dL Calcium 9.2 (8.4-10.2) mg/dL Magnesium 1.2 L (1.6-2.3) mg/dL Total Bilirubin 1.9 H (0.2-1.3) mg/dL AST 24 (17-59) U/L ALT 15 (4-49) U/L Alkaline Phosphatase 115 (38-126) U/L Troponin I (0.000-0.034) ng/mL NT-Pro-B Natriuret Pep 4120 pg/mL Total Protein 6.4 (6.3-8.2) g/dL Albumin 3.7 (3.5-5.0) g/dL 01/12/24 Range/Units 11:36 WBC (3.8-10.6) k/uL RBC (4.30-5.90) m/uL Hgb (13.0-17.5) gm/dL Hct (39.0-53.0) % MCV (80.0-100.0) fL MCH (25.0-35.0) pg MCHC (31.0-37.0) g/dL RDW (11.5-15.5) % Plt Count (150-450) k/uL MPV Neutrophils % % Lymphocytes % % Monocytes % % Eosinophils % % Basophils % % Neutrophils # (1.3-7.7) k/uL Lymphocytes # (1.0-4.8) k/uL Monocytes # (0-1.0) k/uL Eosinophils # (0-0.7) k/uL Basophils # (0-0.2) k/uL Hypochromasia Anisocytosis Microcytosis PT (10.0-12.5) sec INR (<1.2) APTT (22.0-30.0) sec D-Dimer (<0.60) mg/L FEU Sodium (137-145) mmol/L Potassium (3.5-5.1) mmol/L Chloride (98-107) mmol/L Carbon Dioxide (22-30) mmol/L Anion Gap mmol/L BUN (9-20) mg/dL Creatinine (0.66-1.25) mg/dL Est GFR (CKD-EPI)AfAm (>60 ml/min/1.73 sqM) Est GFR (CKD-EPI)NonAf (>60 ml/min/1.73 sqM) Glucose (74-99) mg/dL Calcium (8.4-10.2) mg/dL Magnesium (1.6-2.3) mg/dL Total Bilirubin (0.2-1.3) mg/dL AST (17-59) U/L ALT (4-49) U/L Alkaline Phosphatase (38-126) U/L Troponin I <0.012 (0.000-0.034) ng/mL NT-Pro-B Natriuret Pep pg/mL Total Protein (6.3-8.2) g/dL Albumin (3.5-5.0) g/dL - EKG Data -: EKG Interpreted by Me EKG Comments: 12-lead Electrocardiogram Interpretation Note EKG was reviewed and interpreted by myself. 12-lead ECG performed at 1112 is interpreted by me as revealing A-fib with RVR at a rate of 134 beats per minute. Indeterminate axis. QRS durations 127 ms, QTc is 422 ms.. There were no ST or T wave abnormalities to suggest myocardial ischemia or injury. R wave progression across the precordium was satisfactory. By my interpretation this EKG is non-diagnostic for acute ischemia. Critical Care Time Critical Care Time: Yes Total Critical Care Time: 45 Disposition Clinical Impression: Congestive heart failure, Atrial fibrillation with RVR, Hypomagnesemia, Debility Disposition: ADMITTED IP TO THIS HOSP Condition: Serious Referrals: Aquilino Garber MD [Primary Care Provider] - 1-2 days Time of Disposition: 13:48
[2024-01-12] MEDS: FUROSEMIDE 10 MG/ML 4 ML VIAL IV STA (14:23)
--- NOTE | 2024-01-12 14:28 | P.HPIM ---
History of Present Illness H&P Date: 01/12/24 This is a 73-year-old male patient who presented to the ER due to generalized weakness and debility. Per patient. His and market superintendent had been in the hospital the patient was unable to receive care at home. Patient has prompted him to the ER for further evaluation with possible placement. Upon arrival patient was found to be in new A. fib with RVR. Patient's BNP also elevated at 4120.patient has a past medical history of COPD, diabetes mellitus, hyperlipidemia, prostate disorder, sleep apnea, thyroid disorder, chronic lower extremity lymphedema and morbid obesity. chest x-ray completed showing no acute cardiopulmonary disease. At this time patient will be admitted patient on IV Cardizem drip per cardiology. Patient started on IV Lasix. Cardiology service is consulted. Patient started on heparin drip. this time patient is complaining of some shortness of breath. Patient denies chest pain. Patient denies nausea vomiting or diarrhea. Patient denies any urinary burning or frequency PT OT and social work services consulted Review of Systems please refer to HPI otherwise unremarkable Past Medical History Past Medical History: COPD, Diabetes Mellitus, Eye Disorder, Hyperlipidemia, Hypertension, Prostate Disorder, Sleep Apnea/CPAP/BIPAP, Thyroid Disorder Additional Past Medical History / Comment(s): HX PVC'S. MILD COPD. ANEMIA. HX KIDNEY STONES. BPH. HAD DIABETIC RETINOPATHY TX ON EYES. HAS HAD PICC LINE IN PAST, NOW OUT. CHRONIC BACK AND KNEE PAIN History of Any Multi-Drug Resistant Organisms: None Reported Past Surgical History: Orthopedic Surgery Additional Past Surgical History / Comment(s): RT THYROIDECTOMY. MASS FROM BACK, FATTY TUMOR. NASAL MASS REMOVED. LASER EYES, INTRAOCULAR LENS. WOUND ON RT FOOT I&D. LEFT KNEE ARTHROSCOPY, CYST REMOVED FROM TAILBONE Past Anesthesia/Blood Transfusion Reactions: Previous Problems w/ Anesthesia Additional Past Anesthesia/Blood Transfusion Reaction / Comment(s): OCC TAKES LONG TIME TO AWAKEN. Past Psychological History: No Psychological Hx Reported Smoking Status: Former smoker Past Alcohol Use History: None Reported Past Drug Use History: None Reported - Past Family History Mother Family Medical History: COPD Father Family Medical History: Diabetes Mellitus Additional Family Medical History / Comment(s): heart failure Medications and Allergies Home Medications Medication Instructions Recorded Confirmed Type Atorvastatin [Lipitor] 20 mg PO DAILY 03/06/16 01/12/24 History Furosemide 40 mg PO BID@0900,1600 03/06/16 01/12/24 History Levothyroxine Sodium [Synthroid] 25 mcg PO DAILY 03/06/16 01/12/24 History Potassium Chloride [Klor-Con M10] 10 meq PO BID 03/06/16 01/12/24 History lisinopriL [Lisinopril] 20 mg PO BID 03/06/16 01/12/24 History metFORMIN HCL 500 mg PO BID 03/06/16 01/12/24 History Tamsulosin [Flomax] 0.4 mg PO BID 11/17/17 01/12/24 History Acetaminophen [Tylenol Arthritis] 650 mg PO Q6H PRN 11/05/20 01/12/24 History Insulin Lispro [humaLOG Kwikpen] See Protocol SQ TID-W/MEALS 11/05/20 01/12/24 History amLODIPine [Norvasc] 5 mg PO DAILY 11/05/20 01/12/24 History carvediloL [Coreg] 25 mg PO BID 11/05/20 01/12/24 History cloNIDine HCL [Catapres] 0.3 mg PO TID 11/05/20 01/12/24 History hydrALAZINE HCL [Apresoline] 50 mg PO BID 11/05/20 01/12/24 History Acetaminophen-Codeine 300-30mg 1 tab PO TID PRN 01/12/24 01/12/24 History [Tylenol w/codeine #3] Cyclobenzaprine [Flexeril] 10 mg PO TID PRN 01/12/24 01/12/24 History Insulin Glargine,Hum.rec.anlog 100 units SQ HS 01/12/24 01/12/24 History [Toujeo Max Solostar] Vitamin B Complex 1 cap PO DAILY 01/12/24 01/12/24 History Allergies Allergy/AdvReac Type Severity Reaction Status Date / Time adhesive Allergy BLISTERING Verified 01/12/24 11:31 RASH amoxicillin Allergy Rash/Hives Verified 01/12/24 11:31 Penicillins Allergy Rash/Hives Verified 01/12/24 11:31 pollen extracts Allergy RHINITIS, Verified 01/12/24 11:31 SORE THROAT Physical Exam Vitals: Vital Signs Pulse Resp BP Pulse Ox 01/12/24 13:12 136 H 20 112/86 96 07/31/24 12:23 20 01/12/24 11:02 124 H 18 124/81 95 Intake and Output 01/11/24 01/12/24 01/12/24 22:59 06:59 14:59 Other: Weight 131.542 kg Head normocephalic Neck supple Lungs clear to auscultation bilaterally no wheezing or crackles Heart regular rate and rhythm S1-S2, no rub or gallop Abdomen is soft nontender nondistended positive bowel sounds no hepatosplenomegaly Extremities bilateral lower extremity lymphedema with blisters Neuro alert and orientated to 3 Results CBC & Chem 7: 01/12/24 11:36 01/12/24 11:36 Labs: Abnormal Lab Results - Last 24 Hours (Table) 01/12/24 01/12/24 01/12/24 Range/Units 11:36 11:36 11:36 RBC 4.02 L (4.30-5.90) m/uL Hgb 9.7 L (13.0-17.5) gm/dL Hct 31.8 L (39.0-53.0) % MCV 79.0 L (80.0-100.0) fL MCH 24.1 L (25.0-35.0) pg MCHC 30.5 L (31.0-37.0) g/dL RDW 18.2 H (11.5-15.5) % PT 13.9 H (10.0-12.5) sec INR 1.3 H (<1.2) D-Dimer 0.91 H (<0.60) mg/L FEU Creatinine 0.52 L (0.66-1.25) mg/dL Glucose 150 H (74-99) mg/dL Magnesium 1.2 L (1.6-2.3) mg/dL Total Bilirubin 1.9 H (0.2-1.3) mg/dL Assessment and Plan Assessment: 1. Acute CHF exacerbation 2. New onset A. fib with RVR 3. Chronic bilateral lower extremity lymphedema 4. History of COPD 5. History of morbid obesity 6. Obstructive sleep apnea 7. History of hyperlipidemia 8. History of hypothyroidism 9. Diabetes mellitus type 2. Sliding scale coverage ordered DVT prophylaxis heparin drip. GI prophylaxis Protonix cardiology service is consulted Patient started on IV Lasix Patient started on IV Cardizem and IV heparin drip 2-D echo ordered infectious disease service is consulted Repeat labs ordered PT OT and social work services consulted Time with Patient: Greater than 30 (Greater than 60% of the total time spent in counseling and coordination of care)
[2024-01-12] MEDS: HEPARIN SODIUM 1,000 UN/ML (10ML VL) IV ONE (14:31)
[2024-01-12] MEDS: HEPARIN SOD,PORK IN 0.45% NACL 25,000 UNIT in 0.45% NACL 1 250ML.BAG IV SCH (14:32)
[2024-01-12] MEDS: cloNIDine HCL 0.1 MG TAB PO SCH (15:23)
[2024-01-12 15:29] LABS: Appearance,Urine Clear (Clear); Bilirubin,Urine Negative (Negative); Blood,Urine Negative (Negative); Color,Urine Colorless; Glucose,Urine (UA) Negative (Negative); Ketones,Urine Trace (Negative); Leukocyte Esterase,Urine Negative (Negative); Nitrite,Urine Negative (Negative); PH, Urine 6.5 (5.0-8.0); Protein,Urine Negative (Negative); Urobilinogen,Urine <2.0 mg/dL (<2.0)
[2024-01-12 17:01] LABS: Glucose,Whole Blood 170 mg/dL (70-110)
[2024-01-12] MEDS: INSULIN ASPART (NovoLOG) 100 UNIT/ML VIAL SQ SCH (18:22)
[2024-01-12] MEDS: hydrALAZINE HCL 50 MG TAB PO SCH (21:26)
[2024-01-12] MEDS: TAMSULOSIN 0.4 MG CAP.ER.24H PO SCH (21:27)
[2024-01-12] MEDS: FUROSEMIDE 10 MG/ML 4 ML VIAL IV SCH (21:27)
[2024-01-12] MEDS: lisinopriL 20 MG TAB PO SCH (21:27)
[2024-01-12] MEDS: HEPARIN SODIUM 1,000 UN/ML (10ML VL) IV PRN (21:29)
--- NOTE | 2024-01-12 22:16 | P.CONS ---
History of Present Illness - Reason for Consult Consult date: 01/12/24 Lymphedema lower extremity swelling Requesting physician: Aquilino Garber - Chief Complaint Weakness unable to care for himself x days - History of Present Illness Patient is a 73-year-old male with a past medical history significant for diabetes mellitus hypertension hyperlipidemia prostate disorder COPD and did have bilateral lower extremity lymphedema and venous stasis dermatitis patient was brought into the hospital for evaluation of debility apparently patient has been living at home home however the patient is admitted to the hospital and the patient did not have any help at home he struggles to do care of himself at home patient has been brought to the hospital for further evaluation patient was noticed to have increasing swelling to bilateral extremity with some redness concerning for lymphedema and cellulitis prompting this infectious disease consultation. Patient denies having any fever or any chills bilateral extremity lymphedema and swelling has been chronic for the patient did have slight worsening recently also noted to have increasing redness and mild dull aching pain without any radiation did have some weeping edema but no foul-smelling drainage patient on presentation to the hospital was tachycardic but not hypotensive or hypoxic and no temperature has been recorded interestingly patient did have a white count of 5.0 creatinine 0.52 electrolytes has been normal liver isms are normal urine has been negative patient did have a chest x-ray no acute cardiopulmonary disease process patient did have a CT angiogram of the chest no evidence of PE evidence of effusion and borderline cardiomegaly Review of Systems Positive point and negatives has been mentioned in the HPI, complete review of systems was performed and all other systems are negative Past Medical History Past Medical History: COPD, Diabetes Mellitus, Eye Disorder, Hyperlipidemia, Hypertension, Prostate Disorder, Sleep Apnea/CPAP/BIPAP, Thyroid Disorder Additional Past Medical History / Comment(s): HX PVC'S. MILD COPD. ANEMIA. HX KIDNEY STONES. BPH. HAD DIABETIC RETINOPATHY TX ON EYES. HAS HAD PICC LINE IN PAST, NOW OUT. CHRONIC BACK AND KNEE PAIN History of Any Multi-Drug Resistant Organisms: None Reported Past Surgical History: Orthopedic Surgery Additional Past Surgical History / Comment(s): RT THYROIDECTOMY. MASS FROM BACK, FATTY TUMOR. NASAL MASS REMOVED. LASER EYES, INTRAOCULAR LENS. WOUND ON RT FOOT I&D. LEFT KNEE ARTHROSCOPY, CYST REMOVED FROM TAILBONE Past Anesthesia/Blood Transfusion Reactions: Previous Problems w/ Anesthesia Additional Past Anesthesia/Blood Transfusion Reaction / Comm: OCC TAKES LONG HAYDE E TO AWAKEN. Past Psychological History: No Psychological Hx Reported Smoking Status: Former smoker Past Alcohol Use History: None Reported Past Drug Use History: None Reported - Past Family History Mother Family Medical History: COPD Father Family Medical History: Diabetes Mellitus Additional Family Medical History / Comment(s): heart failure Medications and Allergies Home Medications Medication Instructions Recorded Confirmed Type Atorvastatin [Lipitor] 20 mg PO DAILY 03/06/16 01/12/24 History Furosemide 40 mg PO BID@0900,1600 03/06/16 01/12/24 History Levothyroxine Sodium [Synthroid] 25 mcg PO DAILY 03/06/16 01/12/24 History Potassium Chloride [Klor-Con M10] 10 meq PO BID 03/06/16 01/12/24 History lisinopriL [Lisinopril] 20 mg PO BID 03/06/16 01/12/24 History metFORMIN HCL 500 mg PO BID 03/06/16 01/12/24 History Tamsulosin [Flomax] 0.4 mg PO BID 11/17/17 01/12/24 History Acetaminophen [Tylenol Arthritis] 650 mg PO Q6H PRN 11/05/20 01/12/24 History Insulin Lispro [humaLOG Kwikpen] See Protocol SQ TID-W/MEALS 11/05/20 01/12/24 History amLODIPine [Norvasc] 5 mg PO DAILY 11/05/20 01/12/24 History carvediloL [Coreg] 25 mg PO BID 11/05/20 01/12/24 History cloNIDine HCL [Catapres] 0.3 mg PO TID 11/05/20 01/12/24 History hydrALAZINE HCL [Apresoline] 50 mg PO BID 11/05/20 01/12/24 History Acetaminophen-Codeine 300-30mg 1 tab PO TID PRN 01/12/24 01/12/24 History [Tylenol w/codeine #3] Cyclobenzaprine [Flexeril] 10 mg PO TID PRN 01/12/24 01/12/24 History Insulin Glargine,Hum.rec.anlog 100 units SQ HS 01/12/24 01/12/24 History [Toujeo Max Solostar] Vitamin B Complex 1 cap PO DAILY 01/12/24 01/12/24 History Allergies Allergy/AdvReac Type Severity Reaction Status Date / Time adhesive Allergy BLISTERING Verified 01/12/24 11:31 RASH amoxicillin Allergy Rash/Hives Verified 01/12/24 11:31 Penicillins Allergy Rash/Hives Verified 01/12/24 11:31 pollen extracts Allergy RHINITIS, Verified 01/12/24 11:31 SORE THROAT Physical Exam Vitals: Vital Signs Pulse Resp BP Pulse Ox 01/12/24 17:17 112 H 22 117/86 94 L 01/12/24 16:27 113 H 20 126/67 95 01/12/24 14:35 101 H 20 96 01/12/24 14:33 91 20 119/78 92 L 01/12/24 13:12 136 H 20 112/86 96 01/12/24 12:23 20 01/12/24 11:02 124 H 18 124/81 95 Intake and Output 01/12/24 01/12/24 01/12/24 06:59 14:59 22:59 Other: Weight 131.542 kg GENERAL DESCRIPTION: Elderly male lying in bed, no distress. No tachypnea or accessory muscle of respiration use. HEENT: Shows Pallor , no scleral icterus. Oral mucous membrane is dry. No pharyngeal erythema or thrush NECK: Trachea central, no thyromegaly. LUNGS: Unlabored breathing. Decreased breath sound the base HEART: S1, S2, regular rate and rhythm. No loud murmur ABDOMEN: Soft, no tenderness , guarding or rigidity, no organomegaly EXTREMITIES: Diffuse swelling to bilateral lower extremity with some superficial ulceration slightly warm to touch no foul-smelling drainage SKIN: No rash, no masses palpable. NEUROLOGICAL: The patient is awake, alert, oriented x3, mood and affect normal. Results CBC & Chem 7: 01/12/24 11:36 01/12/24 11:36 Labs: Abnormal Lab Results - Last 24 Hours (Table) 01/12/24 01/12/24 01/12/24 Range/Units 11:36 11:36 11:36 RBC 4.02 L (4.30-5.90) m/uL Hgb 9.7 L (13.0-17.5) gm/dL Hct 31.8 L (39.0-53.0) % MCV 79.0 L (80.0-100.0) fL MCH 24.1 L (25.0-35.0) pg MCHC 30.5 L (31.0-37.0) g/dL RDW 18.2 H (11.5-15.5) % PT 13.9 H (10.0-12.5) sec INR 1.3 H (<1.2) D-Dimer 0.91 H (<0.60) mg/L FEU Creatinine 0.52 L (0.66-1.25) mg/dL Glucose 150 H (74-99) mg/dL POC Glucose (mg/dL) (70-110) mg/dL Magnesium 1.2 L (1.6-2.3) mg/dL Total Bilirubin 1.9 H (0.2-1.3) mg/dL Urine Ketones (Negative) 01/12/24 01/12/24 Range/Units 15:08 17:00 RBC (4.30-5.90) m/uL Hgb (13.0-17.5) gm/dL Hct (39.0-53.0) % MCV (80.0-100.0) fL MCH (25.0-35.0) pg MCHC (31.0-37.0) g/dL RDW (11.5-15.5) % PT (10.0-12.5) sec INR (<1.2) D-Dimer (<0.60) mg/L FEU Creatinine (0.66-1.25) mg/dL Glucose (74-99) mg/dL POC Glucose (mg/dL) 170 H (70-110) mg/dL Magnesium (1.6-2.3) mg/dL Total Bilirubin (0.2-1.3) mg/dL Urine Ketones Trace H (Negative) Assessment and Plan (1) Swelling of both lower extremities Current Visit: Yes Status: Acute Code(s): M79.89 - OTHER SPECIFIED SOFT TISSUE DISORDERS SNOMED Code(s): 493481958 (2) Bilateral lower leg cellulitis Current Visit: Yes Status: Acute Code(s): L03.116 - CELLULITIS OF LEFT LOWER LIMB; L03.115 - CELLULITIS OF RIGHT LOWER LIMB SNOMED Code(s): 220368945 (3) Penicillin allergy Current Visit: Yes Status: Acute Code(s): Z88.0 - ALLERGY STATUS TO PENICILLIN SNOMED Code(s): 09612397 Plan: 1patient with a chronic swelling to bilateral lower extremity likely venous stasis dermatitis did have some erythema concerning for secondary cellulitis likely from gram-positive skin karan 2-penicillin allergy that will limit the number of antibiotics safe to use with no history of anaphylaxis 3-we will start the patient on cefazolin 3 g every 8 hour 4-we will apply dry Aquacel silver dressing to the open area lower extremity followed by Layton wrap from just above the toe to below the knee change daily We will follow on clinical condition and cultures to further adjust medication if needed Thank you for this consultation we will follow the patient along with you Dictation was produced using [employer] dictation software. please excuse any grammatical, word or spelling errors. Time with Patient: Greater than 30
[2024-01-13] MEDS: ceFAZolin 3 GM in SODIUM CHLORIDE 0.9% 100 ML IVPB SCH (01:15)
[2024-01-13] MEDS: Acetaminophen-Codeine 300-30mg TAB PO PRN (01:16)
[2024-01-13 05:17] LABS: Anisocytosis Slight; Basophils % (A) 0 %; Eosinophils % (A) 0 %; HCT 30.7 % (39.0-53.0); HGB 9.5 gm/dL (13.0-17.5); Hypochromasia Marked; Lymphocytes # (A) 0.7 k/uL (1.0-4.8); Lymphocytes % (A) 13 %; MCHC 30.8 g/dL (31.0-37.0); Mean Platelet Volume 7.5; Microcytosis Slight; Monocytes # (A) 0.4 k/uL (0-1.0); Monocytes % (A) 7 %; Neutrophils # (A) 4.5 k/uL (1.3-7.7); Neutrophils % (A) 78 %; Platelet Count 254 k/uL (150-450); RBC 3.79 m/uL (4.30-5.90); RDW 18.5 % (11.5-15.5); WBC 5.8 k/uL (3.8-10.6)
[2024-01-13 05:32] LABS: INR 1.3 (<1.2); Prothrombin Time 13.7 sec (10.0-12.5)
[2024-01-13 05:33] LABS: ALT 12 U/L (4-49); AST 18 U/L (17-59); African American GFR (CKD) >90 (>60 ml/min/1.73 sqM); Albumin 3.1 g/dL (3.5-5.0); Alkaline Phosphatase 106 U/L (38-126); Anion Gap 13 mmol/L; Blood Urea Nitrogen 10 mg/dL (9-20); Calcium 8.7 mg/dL (8.4-10.2); Carbon Dioxide 24 mmol/L (22-30); Chloride 100 mmol/L (98-107); Glucose 192 mg/dL (74-99); Non-African American GFR(CKD) >90 (>60 ml/min/1.73 sqM); Potassium 3.8 mmol/L (3.5-5.1); Sodium 137 mmol/L (137-145); Total Bilirubin 1.8 mg/dL (0.2-1.3); Total Protein 5.6 g/dL (6.3-8.2)
[2024-01-13] MEDS: LEVOTHYROXINE 25 MCG TAB PO SCH (06:51)
[2024-01-13 08:22] LABS: Glucose,Whole Blood 222 mg/dL (70-110)
[2024-01-13] MEDS: PANTOPRAZOLE 40 MG TABLET PO SCH (08:22)
[2024-01-13] MEDS: ATORVASTATIN 20 MG TAB PO SCH (08:22)
[2024-01-13] MEDS: amLODIPine 5 MG TAB PO SCH (08:22)
[2024-01-13] MEDS: ATORVASTATIN 40 MG TAB PO SCH (10:05)
[2024-01-13] MEDS: carvediloL 12.5 MG TAB PO SCH (10:12)
[2024-01-13] MEDS: SPIRONOLACTONE 25 MG TAB PO SCH (10:12)
[2024-01-13] MEDS: DAPAGLIFLOZIN PROPANEDIOL 10 MG TABLET PO SCH (10:12)
[2024-01-13 10:52] LABS: Magnesium 1.3 mg/dL (1.6-2.3)
[2024-01-13 11:02] LABS: NT-Pro-B-Type Natriuretic Pept 3590 pg/mL
[2024-01-13 11:59] LABS: Glucose,Whole Blood 154 mg/dL (70-110)
--- NOTE | 2024-01-13 15:47 | P.CRDCN ---
History of Present Illness Consult date: 01/13/24 History of present illness: Dr Coreas's addendum Patient was seen and examined with the resident. All, rounds of physical examination history and chart review was performed by myself. Assessment: 1. New onset A-fib. [id number] score of 6. 2. 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 Right thyroid enlargement. History of left thyroid resection - maintained on Synthroid 25 mcg. 3. Acute HFpEF exacerbation. 4. Coronary artery calcifications. 5. Acute hypoxic respiratory failure. Small right pulmonary effusion. 6. Obesity. 7. Chronic lower extremity lymphedema with skin changes. 8. COPD. 9. Dyslipidemia. Plan: Check iron panel. Check magnesium. Maintain magnesium 2, potassium 4. Check hemoglobin A1c. Check proBNP. Check free T3/T4. A-fib possibly related to hyperthyroidism - consult PCP to see if endocrine consult is needed. Obtain echocardiogram. Monitor telemetry. Add Coreg 25 mg twice daily. Increase Lipitor to 40 mg daily. Add Farxiga 10 mg daily. Add Aldactone 25 mg daily. Discontinue levothyroxine. Discontinue clonidine and maximize other antihypertensive medications in the meantime. Maintain diuresis and cardiovascular therapy for CHF. HPI Patient is a 73-year-old male with past medical history of COPD, diabetes, hypertension, hyperlipidemia, chronic lymphedema. He is being consulted for new onset A-fib with RVR. He was brought to the ED yesterday for chronic debility. Since he has been here he has increased shortness of breath - currently on 3 L nasal cannula. EKG shows A-fib with RVR and left axis deviation. CTA on 01/12/2024 shows small to moderate right pleural effusion and small pericardial effusion. Review of Systems Negative except for what is stated in HPI. Past Medical History Past Medical History: COPD, Diabetes Mellitus, Eye Disorder, Hyperlipidemia, Hypertension, Prostate Disorder, Sleep Apnea/CPAP/BIPAP, Thyroid Disorder Additional Past Medical History / Comment(s): HX PVC'S. MILD COPD. ANEMIA. HX KIDNEY STONES. BPH. HAD DIABETIC RETINOPATHY TX ON EYES. HAS HAD PICC LINE IN PAST, NOW OUT. CHRONIC BACK AND KNEE PAIN History of Any Multi-Drug Resistant Organisms: None Reported Past Surgical History: Orthopedic Surgery Additional Past Surgical History / Comment(s): RT THYROIDECTOMY. MASS FROM BACK, FATTY TUMOR. NASAL MASS REMOVED. LASER EYES, INTRAOCULAR LENS. WOUND ON RT FOOT I&D. LEFT KNEE ARTHROSCOPY, CYST REMOVED FROM TAILBONE Past Anesthesia/Blood Transfusion Reactions: Previous Problems w/ Anesthesia Additional Past Anesthesia/Blood Transfusion Reaction / Comment(s): OCC TAKES LONG TIME TO AWAKEN. Past Psychological History: No Psychological Hx Reported Smoking Status: Former smoker Past Alcohol Use History: None Reported Past Drug Use History: None Reported - Past Family History Mother Family Medical History: COPD Father Family Medical History: Diabetes Mellitus Additional Family Medical History / Comment(s): heart failure Medications and Allergies Home Medications Medication Instructions Recorded Confirmed Type Atorvastatin [Lipitor] 20 mg PO DAILY 03/06/16 01/12/24 History Furosemide 40 mg PO BID@0900,1600 03/06/16 01/12/24 History Levothyroxine Sodium [Synthroid] 25 mcg PO DAILY 03/06/16 01/12/24 History Potassium Chloride [Klor-Con M10] 10 meq PO BID 03/06/16 01/12/24 History lisinopriL [Lisinopril] 20 mg PO BID 03/06/16 01/12/24 History metFORMIN HCL 500 mg PO BID 03/06/16 01/12/24 History Tamsulosin [Flomax] 0.4 mg PO BID 11/17/17 01/12/24 History Acetaminophen [Tylenol Arthritis] 650 mg PO Q6H PRN 11/05/20 01/12/24 History Insulin Lispro [humaLOG Kwikpen] See Protocol SQ TID-W/MEALS 11/05/20 01/12/24 History amLODIPine [Norvasc] 5 mg PO DAILY 11/05/20 01/12/24 History carvediloL [Coreg] 25 mg PO BID 11/05/20 01/12/24 History cloNIDine HCL [Catapres] 0.3 mg PO TID 11/05/20 01/12/24 History hydrALAZINE HCL [Apresoline] 50 mg PO BID 11/05/20 01/12/24 History Acetaminophen-Codeine 300-30mg 1 tab PO TID PRN 01/12/24 01/12/24 History [Tylenol w/codeine #3] Cyclobenzaprine [Flexeril] 10 mg PO TID PRN 01/12/24 01/12/24 History Insulin Glargine,Hum.rec.anlog 100 units SQ HS 01/12/24 01/12/24 History [Anthonylópezrox Grover Hernandez] Vitamin B Complex 1 cap PO DAILY 01/12/24 01/12/24 History Allergies Allergy/AdvReac Type Severity Reaction Status Date / Time adhesive Allergy BLISTERING Verified 01/12/24 11:31 RASH amoxicillin Allergy Rash/Hives Verified 01/12/24 11:31 Penicillins Allergy Rash/Hives Verified 01/12/24 11:31 pollen extracts Allergy RHINITIS, Verified 01/12/24 11:31 SORE THROAT Physical Exam Vitals: Vital Signs Temp Pulse Resp BP Pulse Ox 01/13/24 12:58 97.8 F 113 H 20 117/63 95 01/13/24 10:13 112 H 26 H 142/73 94 L 01/13/24 06:52 96 18 130/98 94 L 01/13/24 04:49 82 18 119/93 97 01/13/24 01:12 103 H 18 119/67 97 01/12/24 21:58 126 H 22 119/72 96 01/12/24 17:17 112 H 22 117/86 94 L 01/12/24 16:27 113 H 20 126/67 95 Intake and Output 01/13/24 01/13/24 01/13/24 06:59 14:59 22:59 Intake Total 129.67 165.580 Balance 129.67 165.580 Intake: Intake, IV Titration 129.67 165.580 Amount Diltiazem 125 mg In 114.917 Sodium Chloride 0.9% 100 ml @ 5 MG/HR 5 mls/hr IV .Q24H [facility] Rx#:[id number] Heparin Sod,Pork in 0.45% 129.67 50.663 NaCl 25,000 unit In 0.45 % NaCl 1 250ml.bag @ 7. 602 UNITS/KG/HR 10 mls/hr IV .Q24H [facility] Rx#: [id number] Vital signs are stable. General: Mild respiratory distress. HEENT: Head exam is unremarkable. Lungs: Right-sided breath sounds diminished; no rhonchi, wheezes, or rales. Heart: Rate and rhythm are regular; JVD present. Abdomen: Nontender. Extremities: Bilateral lower extremity edema present; lymphedema with skin changes. Results 01/13/24 04:47 01/13/24 04:47 Cardiac Enzymes 01/12/24 01/12/24 01/13/24 Range/Units 15:46 19:50 04:47 AST 18 (17-59) U/L Troponin I <0.012 <0.012 (0.000-0.034) ng/mL Coagulation 01/12/24 01/13/24 01/13/24 Range/Units 19:50 04:47 12:46 PT 13.7 H (10.0-12.5) sec APTT 29.8 41.0 H 51.2 H (22.0-30.0) sec CBC 01/13/24 Range/Units 04:47 WBC 5.8 (3.8-10.6) k/uL RBC 3.79 L (4.30-5.90) m/uL Hgb 9.5 L (13.0-17.5) gm/dL Hct 30.7 L (39.0-53.0) % Plt Count 254 (150-450) k/uL Comprehensive Metabolic Panel 01/13/24 Range/Units 04:47 Sodium 137 (137-145) mmol/L Potassium 3.8 (3.5-5.1) mmol/L Chloride 100 (98-107) mmol/L Carbon Dioxide 24 (22-30) mmol/L BUN 10 (9-20) mg/dL Creatinine 0.55 L (0.66-1.25) mg/dL Glucose 192 H (74-99) mg/dL Calcium 8.7 (8.4-10.2) mg/dL AST 18 (17-59) U/L ALT 12 (4-49) U/L Alkaline Phosphatase 106 (38-126) U/L Total Protein 5.6 L (6.3-8.2) g/dL Albumin 3.1 L (3.5-5.0) g/dL Current Medications Generic Name Dose Route Start Last Admin Trade Name Freq PRN Reason Stop Dose Admin Acetaminophen/Codeine Phosphate 1 each 01/12/24 22:24 01/13/24 01:16 Acetaminophen-Codeine 300-30mg Tab PO 1 each Q6HR PRN Administration Pain Amlodipine Besylate 5 mg 01/13/24 09:00 01/13/24 08:22 Amlodipine 5 Mg Tab PO 5 mg DAILY [facility] Administration Atorvastatin Calcium 40 mg 01/13/24 10:00 01/13/24 10:05 Atorvastatin 40 Mg Tab PO Not Given DAILY [facility] Carvedilol 25 mg 01/13/24 10:00 01/13/24 10:12 Carvedilol 12.5 Mg Tab PO 25 mg BID-W/MEALS [facility] Administration Cyclobenzaprine HCl 10 mg 01/12/24 13:50 Cyclobenzaprine 10 Mg Tab PO TID PRN Pain Dapagliflozin 10 mg 01/13/24 10:00 01/13/24 10:12 Dapagliflozin Propanediol 10 Mg Tablet PO 10 mg DAILY [facility] Administration Dextrose/Water 25 ml 01/12/24 13:56 Dextrose 50% Syringe 50 Ml IVP PER PROTOCOL PRN Hypoglycemia Protocol Dextrose/Water 50 ml 01/12/24 13:56 Dextrose 50% Syringe 50 Ml IVP PER PROTOCOL PRN Hypoglycemia Protocol Furosemide 40 mg 01/12/24 21:00 01/13/24 08:21 Furosemide 10 Mg/Ml 4 Ml Vial IV 40 mg Q12HR [facility] Administration Heparin Sodium (Porcine) 0 unit 01/12/24 13:46 01/13/24 06:46 Heparin Sodium 1,000 Un/Ml (10ml Vl) IV 3,288 unit PER PROTOCOL PRN Administration Low PTT Protocol Hydralazine HCl 50 mg 01/12/24 21:00 01/13/24 08:22 Hydralazine Hcl 50 Mg Tab PO 50 mg BID [facility] Administration Diltiazem HCl 125 mg/ Sodium 125 mls @ 5 mls/hr 01/12/24 12:15 01/13/24 12:14 Chloride IV 5 mg/hr .Q24H [facility] 5 mls/hr Administration 5 MG/HR Heparin Sodium/Sodium Chloride 250 mls @ 10 mls/hr 01/12/24 14:00 01/13/24 12:15 25,000 unit/ Sodium Chloride IV 12.6 units/kg/hr .Q24H [facility] 16.574 mls/hr Administration Protocol 7.602 UNITS/KG/HR Cefazolin Sodium 3 gm/ Sodium 100 mls @ 200 mls/hr 01/13/24 00:00 01/13/24 08:22 Chloride IVPB 200 mls/hr Q8HR [facility] Administration Protocol Insulin Aspart 0 unit 01/12/24 17:30 08/01/24 12:12 Insulin Aspart (Novolog) 100 Unit/Ml Vial SQ 2 unit AC-TID [facility] Administration Protocol Lisinopril 20 mg 01/12/24 21:00 01/13/24 08:22 Lisinopril 20 Mg Tab PO 20 mg BID [facility] Administration Naloxone HCl 0.2 mg 01/12/24 13:48 Naloxone 0.4 Mg/Ml 1 Ml Vial IV Q2M PRN Opioid Reversal Ondansetron HCl 4 mg 01/12/24 13:48 Ondansetron 4 Mg/2 Ml Vial IVP Q8HR PRN Nausea And Vomiting Pantoprazole Sodium 40 mg 01/13/24 07:30 01/13/24 08:22 Pantoprazole 40 Mg Tablet PO 40 mg AC-[id number] [facility] Administration Spironolactone 25 mg 01/13/24 10:00 01/13/24 10:12 Spironolactone 25 Mg Tab PO 25 mg DAILY [facility] Administration Tamsulosin HCl 0.4 mg 01/12/24 21:00 01/13/24 08:22 Tamsulosin 0.4 Mg Cap.Er.24h PO 0.4 mg BID [facility] Administration Intake and Output 01/13/24 01/13/24 01/13/24 06:59 14:59 22:59 Intake Total 129.67 165.580 Balance 129.67 165.580 Intake: Intake, IV Titration 129.67 165.580 Amount Diltiazem 125 mg In 114.917 Sodium Chloride 0.9% 100 ml @ 5 MG/HR 5 mls/hr IV .Q24H [facility] Rx#:[id number] Heparin Sod,Pork in 0.45% 129.67 50.663 NaCl 25,000 unit In 0.45 % NaCl 1 250ml.bag @ 7. 602 UNITS/KG/HR 10 mls/hr IV .Q24H [facility] Rx#: [id number] 01/13/24 04:47 01/13/24 04:47 Assessment and Plan Assessment: 1. New onset A-fib. [id number] score of 6. 2. 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 Right thyroid enlargement. History of left thyroid resection - maintained on Synthroid 25 mcg. 3. Acute HFpEF exacerbation. 4. Coronary artery calcifications. 5. Acute hypoxic respiratory failure. Small right pulmonary effusion. 6. Obesity. 7. Chronic lower extremity lymphedema with skin changes. 8. COPD. 9. Dyslipidemia. Plan: Check iron panel. Check magnesium. Maintain magnesium 2, potassium 4. Check hemoglobin A1c. Check proBNP. Check free T3/T4. A-fib possibly related to hyperthyroidism - consult PCP to see if endocrine consult is needed. Obtain echocardiogram. Monitor telemetry. Add Coreg 25 mg twice daily. Increase Lipitor to 40 mg daily. Add Farxiga 10 mg daily. Add Aldactone 25 mg daily. Discontinue levothyroxine. Discontinue clonidine and maximize other antihypertensive medications in the meantime. Maintain diuresis and cardiovascular therapy for CHF. Thank you for the consultation. We will continue to monitor him during his hospital stay.
[2024-01-13 16:26] LABS: ABG HCO3 26 mmol/L (21-25); ABG Oxygen Saturation 96.2 % (94-97); ABG PCO2 39 mmHg (35-45); ABG PH 7.44 (7.35-7.45); ABG PO2 80 mmHg (83-108); ABG TCO2 28 mmol/L (19-24); Allen Test Performed? Yes
--- NOTE | 2024-01-13 16:41 | XR ---
EXAMINATION TYPE: XR chest 1V portable DATE OF EXAM: 01/13/2024 4:32 PM CLINICAL INDICATION:Male, 73 years old with history of shortness of breath; H COMPARISON: Chest radiographs from 01/12/2024 TECHNIQUE: XR chest 1V portable Frontal view of the chest. FINDINGS: Lungs/Pleura: Increase in right pleural effusion since yesterday. Right basal atelectasis is worse. L eft lung is clear. No left pleural effusion detected. Pulmonary vascularity: Mild pulmonary venous congestion. Heart/mediastinum: Heart is upper limits normal in size. Musculoskeletal: No acute osseous pathology. Other findings: None Lines/Tubes: IMPRESSION: 6 increasing right pleural effusion and right lung base atelectasis.
[2024-01-13 16:42] LABS: Glucose,Whole Blood 184 mg/dL (70-110)
--- NOTE | 2024-01-13 17:33 | CA ---
Transthoracic Echo Report Name: Francisco Cao Age: 73 Gender: M : 1950 Exam Date: 01/13/2024 07:58 Exam Location: [place] [facility] Ht (in): 70 Wt (lb): 290 Ordering Physician: Aquilino Garber MD Attending/Referring Phys: Principal Process Engineer Margoth Siddiqi RDCS Procedure CPT: Indications: afib, chf Cardiac Hx: Technical Quality: Technically difficult study Contrast 1: Total Dose (mL): Contrast 2: Total Dose (mL): MEASUREMENTS (Male / Female) Normal Values 2D ECHO LV Diastolic Diameter PLAX 5.4 cm 4.2 - 5.9 / 3.9 - 5.3 cm LV Systolic Diameter PLAX 3.5 cm IVS Diastolic Thickness 1.4 cm 0.6 - 1.0 / 0.6 - 0.9 cm LVPW Diastolic Thickness 1.5 cm 0.6 - 1.0 / 0.6 - 0.9 cm LV Relative Wall Thickness 0.5 RV Internal Dim ED PLAX 3.9 cm LA Systolic Diameter LX 4.3 cm 3.0 - 4.0 / 2.7 - 3.8 cm LV Diastolic Volume MOD BP 74.4 cm??? 67 - 155 / 56 - 104 cm??? LV Systolic Volume MOD BP 46.4 cm??? 22 - 58 / 19 - 49 cm??? LV Ejection Fraction MOD BP 37.7 % >= 55 % LV Cardiac Index MOD BP 1268.3 cm???/min???m??? LV Diastolic Volume MOD 4C 95.2 cm??? LV Systolic Volume MOD 4C 67.5 cm??? LV Ejection Fraction MOD 4C 29.1 % LV Cardiac Index MOD 4C 1251.2 cm???/min???m??? LV Diastolic Length 4C 7.5 cm LV Systolic Length 4C 7.1 cm LV Diastolic Volume MOD 2C 56.9 cm??? LV Systolic Volume MOD 2C 33.8 cm??? LV Ejection Fraction MOD 2C 40.7 % LV Cardiac Index MOD 2C 1046.7 cm???/min???m??? LV Diastolic Length 2C 6.5 cm LV Systolic Length 2C 6.9 cm LA Volume 79.5 cm??? 18 - 58 / 22 - 52 cm??? LA Volume Index 30.5 cm???/m??? 16 - 28 cm???/m??? M-MODE Aortic Root Diameter MM 3.7 cm AV Cusp Separation MM 2.1 cm DOPPLER AV Peak Velocity 131.5 cm/s AV Peak Gradient 6.9 mmHg MV Area PHT 2.8 cm??? MV Deceleration Time 202.2 ms TR Peak Velocity 332.0 cm/s TR Peak Gradient 44.1 mmHg Right Ventricular Systolic Press 59.1 mmHg FINDINGS Left Ventricle Left ventricular ejection fraction is estimated at 35-40 %. Left ventricular cavity size normal. Moderately increased septal wall thickness. Moderately decreased left ventricular ejection fraction. Moderately reduced global left ventricular systolic function. Right Ventricle Moderate right ventricular dilatation. Severe pulmonary hypertension. Right ventricular systolic pressure estimated at 59 mm hg. Moderately reduced right ventricular global systolic function. Right Atrium Severe right atrial dilatation. No right atrial thrombus or mass seen. Left Atrium Mildly increased left atrial diameter. Mildly increased left atrial volume. Mildly increased left atrial area. No left atrial thrombus or mass present. Mitral Valve Mitral valve thickened. Mild mitral annular calcification. No mitral stenosis, regurgitation or prolapse. Aortic Valve Trileaflet aortic valve. Thickened aortic valve without stenosis. Tricuspid Valve Structurally normal tricuspid valve. [id number] tricuspid regurgitation. Pulmonic Valve Pulmonic valve not well visualized. Pericardium No pericardial effusion. Aorta Normal size aortic root and proximal ascending aorta. CONCLUSIONS Diagnosis: Congestive heart failure and atrial fibrillation Reduced LV systolic function with apical hypokinesis Enlarged right ventricle with pulmonary hypertension Biatrial enlargement Previewed by: Dr. Tyler Keyes MD (Electronically Signed) Final Date: 13 January 2024 17:32
--- NOTE | 2024-01-13 18:31 | P.PN ---
Subjective Progress Note Date: 01/13/24 Francisco Cao, is a 73-year-old male patient who presented to the ER due to generalized weakness and debility. Per patient. 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 Patient has prompted him to the ER for further evaluation with possible placement. Upon arrival patient was found to be in new A. fib with RVR. Patient's BNP also elevated at 4120.patient has a past medical history of COPD, diabetes mellitus, hyperlipidemia, prostate disorder, sleep apnea, thyroid disorder, chronic lower extremity lymphedema and morbid obesity. chest x-ray completed showing no acute cardiopulmonary disease. At this time patient will be admitted patient on IV Cardizem drip per cardiology. Patient started on IV Lasix. Cardiology service is consulted. Patient started on heparin drip. this time patient is complaining of some shortness of breath. Patient denies chest pain. Patient denies nausea vomiting or diarrhea. Patient denies any urinary burning or frequency PT OT and social work services consulted On 01/13/2024 patient was seen and examined on the medical floor he is alert and oriented x 3 in no apparent distress he is still complaining of shortness of breath otherwise he denies any complaints there is no fever or chills no headache or dizziness no chest pain no cough no nausea or vomiting no abdominal pain no diarrhea and no urinary symptoms Objective - Vital Signs Vital signs: Vital Signs Temp Pulse 96 01/13/24 06:52 Resp 18 01/13/24 06:52 BP 130/98 01/13/24 06:52 Pulse Ox 94 L 01/13/24 06:52 FiO2 Intake & Output 01/12/24 01/13/24 01/13/24 18:59 06:59 18:59 Intake Total 199.337 Balance 199.337 Weight 131.542 kg Intake: Intake, IV Titration 199.337 Amount Heparin Sod,Pork in 0.45% 199.337 NaCl 25,000 unit In 0.45 % NaCl 1 250ml.bag @ 7. 602 UNITS/KG/HR 10 mls/hr IV .Q24H [facility] Rx#: [id number] - Exam In general patient is alert and oriented x 3 in no apparent distress Head normocephalic and atraumatic Neck supple no JVD no goiter Lungs clear to auscultation bilaterally no wheezing or crackles Heart regular rate and rhythm S1-S2, no rub or gallop Abdomen is soft nontender nondistended positive bowel sounds no hepatosplenomegaly Extremities bilateral lower extremity lymphedema with blisters Neuro no gross focal deficit - Labs CBC & Chem 7: 01/13/24 04:47 01/13/24 04:47 Labs: Abnormal Lab Results - Last 24 Hours (Table) 01/12/24 01/12/24 01/12/24 Range/Units 11:36 11:36 11:36 RBC 4.02 L (4.30-5.90) m/uL Hgb 9.7 L (13.0-17.5) gm/dL Hct 31.8 L (39.0-53.0) % MCV 79.0 L (80.0-100.0) fL MCH 24.1 L (25.0-35.0) pg MCHC 30.5 L (31.0-37.0) g/dL RDW 18.2 H (11.5-15.5) % Lymphocytes # (1.0-4.8) k/uL PT 13.9 H (10.0-12.5) sec INR 1.3 H (<1.2) APTT (22.0-30.0) sec D-Dimer 0.91 H (<0.60) mg/L FEU Creatinine 0.52 L (0.66-1.25) mg/dL Glucose 150 H (74-99) mg/dL POC Glucose (mg/dL) (70-110) mg/dL Hemoglobin A1c (<=6.0) % Magnesium 1.2 L (1.6-2.3) mg/dL Total Bilirubin 1.9 H (0.2-1.3) mg/dL Total Protein (6.3-8.2) g/dL Albumin (3.5-5.0) g/dL TSH (0.465-4.680) mIU/L Urine Ketones (Negative) 01/12/24 01/12/24 01/12/24 Range/Units 11:36 15:08 17:00 RBC (4.30-5.90) m/uL Hgb (13.0-17.5) gm/dL Hct (39.0-53.0) % MCV (80.0-100.0) fL MCH (25.0-35.0) pg MCHC (31.0-37.0) g/dL RDW (11.5-15.5) % Lymphocytes # (1.0-4.8) k/uL PT (10.0-12.5) sec INR (<1.2) APTT (22.0-30.0) sec D-Dimer (<0.60) mg/L FEU Creatinine (0.66-1.25) mg/dL Glucose (74-99) mg/dL POC Glucose (mg/dL) 170 H (70-110) mg/dL Hemoglobin A1c 10.3 H (<=6.0) % Magnesium (1.6-2.3) mg/dL Total Bilirubin (0.2-1.3) mg/dL Total Protein (6.3-8.2) g/dL Albumin (3.5-5.0) g/dL TSH (0.465-4.680) mIU/L Urine Ketones Trace H (Negative) 01/12/24 01/13/24 01/13/24 Range/Units 17:41 04:47 04:47 RBC 3.79 L (4.30-5.90) m/uL Hgb 9.5 L (13.0-17.5) gm/dL Hct 30.7 L (39.0-53.0) % MCV (80.0-100.0) fL MCH (25.0-35.0) pg MCHC 30.8 L (31.0-37.0) g/dL RDW 18.5 H (11.5-15.5) % Lymphocytes # 0.7 L (1.0-4.8) k/uL PT (10.0-12.5) sec INR (<1.2) APTT (22.0-30.0) sec D-Dimer (<0.60) mg/L FEU Creatinine 0.55 L (0.66-1.25) mg/dL Glucose 192 H (74-99) mg/dL POC Glucose (mg/dL) (70-110) mg/dL Hemoglobin A1c (<=6.0) % Magnesium (1.6-2.3) mg/dL Total Bilirubin 1.8 H (0.2-1.3) mg/dL Total Protein 5.6 L (6.3-8.2) g/dL Albumin 3.1 L (3.5-5.0) g/dL TSH <0.015 L (0.465-4.680) mIU/L Urine Ketones (Negative) 01/13/24 01/13/24 Range/Units 04:47 08:17 RBC (4.30-5.90) m/uL Hgb (13.0-17.5) gm/dL Hct (39.0-53.0) % MCV (80.0-100.0) fL MCH (25.0-35.0) pg MCHC (31.0-37.0) g/dL RDW (11.5-15.5) % Lymphocytes # (1.0-4.8) k/uL PT 13.7 H (10.0-12.5) sec INR 1.3 H (<1.2) APTT 41.0 H (22.0-30.0) sec D-Dimer (<0.60) mg/L FEU Creatinine (0.66-1.25) mg/dL Glucose (74-99) mg/dL POC Glucose (mg/dL) 222 H (70-110) mg/dL Hemoglobin A1c (<=6.0) % Magnesium (1.6-2.3) mg/dL Total Bilirubin (0.2-1.3) mg/dL Total Protein (6.3-8.2) g/dL Albumin (3.5-5.0) g/dL TSH (0.465-4.680) mIU/L Urine Ketones (Negative) Assessment and Plan Assessment: 1. Acute CHF exacerbation 2. New onset A. fib with RVR 3. Chronic bilateral lower extremity lymphedema 4. History of COPD 5. History of morbid obesity 6. Obstructive sleep apnea 7. History of hyperlipidemia 8. History of hypothyroidism 9. Diabetes mellitus type 2. Sliding scale coverage ordered DVT prophylaxis heparin drip. GI prophylaxis Protonix cardiology service is consulted Patient started on IV Lasix Patient started on IV Cardizem and IV heparin drip 2-D echo ordered infectious disease service is consulted Repeat labs ordered PT OT and social work services consulted
[2024-01-13 18:40] LABS: % Iron Saturation 8.83 (15.00-50.00); Ferritin 20.7 ng/mL (22.0-322.0); Iron 31 UG/DL (65-175); LDL Cholesterol,Calculated 30.5 mg/dL (0.0-131.0); Total Iron Binding Capacity 351 UG/DL (228-460)
[2024-01-13] MEDS: FUROSEMIDE 10 MG/ML 2 ML VIAL IV ONE (19:56)
[2024-01-13 20:09] LABS: Glucose,Whole Blood 198 mg/dL (70-110)
--- NOTE | 2024-01-13 20:48 | P.PN ---
Subjective Progress Note Date: 01/13/24 Principal diagnosis: Reason for follow-up is bilateral lower extremity lymphedema and cellulitis Patient is a 73-year-old male with a past medical history significant for diabetes mellitus hypertension hyperlipidemia prostate disorder COPD and did have bilateral lower extremity lymphedema and venous stasis dermatitis patient was brought into the hospital for evaluation of debility patient was also noticed to have some increasing swelling redness and drainage concerning for cellulitis. On today's evaluation that is 01/13/2024, Patient is afebrile this morning les ent denies having any chest pain shortness of breath or cough, the patient is breathing comfortably and currently on 2 L nasal cannula oxygen patient denies any abdominal pain no diarrhea no nausea no vomiting, denies any worsening pain to the lower extremity. Patient white count is 5.8, creatinine is 0.55 Objective - Vital Signs Vital signs: Vital Signs Temp 97.2 F L 01/13/24 14:00 Pulse 124 H 01/13/24 16:00 Resp 20 01/13/24 14:00 BP 133/83 01/13/24 16:00 Pulse Ox 95 01/13/24 16:00 FiO2 Intake & Output 01/13/24 01/13/24 01/14/24 06:59 18:59 06:59 Intake Total 199.337 165.580 Output Total 0 Balance 199.337 165.580 Weight 131.542 kg Intake: Intake, IV Titration 199.337 165.580 Amount Diltiazem 125 mg In 114.917 Sodium Chloride 0.9% 100 ml @ 5 MG/HR 5 mls/hr IV .Q24H [facility] Rx#:[id number] Heparin Sod,Pork in 0.45% 199.337 50.663 NaCl 25,000 unit In 0.45 % NaCl 1 250ml.bag @ 7. 602 UNITS/KG/HR 10 mls/hr IV .Q24H [facility] Rx#: [id number] Output: Urine 0 Other: Voiding Method External Catheter - Exam GENERAL DESCRIPTION: An elderly male lying in bed in no distress RESPIRATORY SYSTEM: Unlabored breathing , decreased breath sounds at bases HEART: S1 S2 regular rate and rhythm , ABDOMEN: Soft , no tenderness EXTREMITIES: Bilateral extremity few swelling lymphedema redness no drainage or - Labs CBC & Chem 7: 01/13/24 04:47 01/13/24 04:47 Labs: Abnormal Lab Results - Last 24 Hours (Table) 01/12/24 01/13/24 01/13/24 Range/Units 11:36 04:47 04:47 RBC 3.79 L (4.30-5.90) m/uL Hgb 9.5 L (13.0-17.5) gm/dL Hct 30.7 L (39.0-53.0) % MCHC 30.8 L (31.0-37.0) g/dL RDW 18.5 H (11.5-15.5) % Lymphocytes # 0.7 L (1.0-4.8) k/uL PT (10.0-12.5) sec INR (<1.2) APTT (22.0-30.0) sec ABG pO2 (83-108) mmHg ABG HCO3 (21-25) mmol/L ABG Total CO2 (19-24) mmol/L Creatinine 0.55 L (0.66-1.25) mg/dL Glucose 192 H (74-99) mg/dL POC Glucose (mg/dL) (70-110) mg/dL Hemoglobin A1c 10.3 H (<=6.0) % Magnesium (1.6-2.3) mg/dL Iron (65-175) UG/DL % Saturation (15.00-50.00) Ferritin (22.0-322.0) ng/mL Total Bilirubin 1.8 H (0.2-1.3) mg/dL Total Protein 5.6 L (6.3-8.2) g/dL Albumin 3.1 L (3.5-5.0) g/dL HDL Cholesterol (40.00-60.00) mg/dL Free T4 (0.78-2.19) ng/dL 01/13/24 01/13/24 01/13/24 Range/Units 04:47 04:47 04:47 RBC (4.30-5.90) m/uL Hgb (13.0-17.5) gm/dL Hct (39.0-53.0) % MCHC (31.0-37.0) g/dL RDW (11.5-15.5) % Lymphocytes # (1.0-4.8) k/uL PT 13.7 H (10.0-12.5) sec INR 1.3 H (<1.2) APTT 41.0 H (22.0-30.0) sec ABG pO2 (83-108) mmHg ABG HCO3 (21-25) mmol/L ABG Total CO2 (19-24) mmol/L Creatinine (0.66-1.25) mg/dL Glucose (74-99) mg/dL POC Glucose (mg/dL) (70-110) mg/dL Hemoglobin A1c 10.2 H (<=6.0) % Magnesium 1.3 L (1.6-2.3) mg/dL Iron 31 L (65-175) UG/DL % Saturation 8.83 L (15.00-50.00) Ferritin 20.7 L (22.0-322.0) ng/mL Total Bilirubin (0.2-1.3) mg/dL Total Protein (6.3-8.2) g/dL Albumin (3.5-5.0) g/dL HDL Cholesterol 31.20 L (40.00-60.00) mg/dL Free T4 3.80 H (0.78-2.19) ng/dL 01/13/24 01/13/24 01/13/24 Range/Units 08:17 11:58 12:46 RBC (4.30-5.90) m/uL Hgb (13.0-17.5) gm/dL Hct (39.0-53.0) % MCHC (31.0-37.0) g/dL RDW (11.5-15.5) % Lymphocytes # (1.0-4.8) k/uL PT (10.0-12.5) sec INR (<1.2) APTT 51.2 H (22.0-30.0) sec ABG pO2 (83-108) mmHg ABG HCO3 (21-25) mmol/L ABG Total CO2 (19-24) mmol/L Creatinine (0.66-1.25) mg/dL Glucose (74-99) mg/dL POC Glucose (mg/dL) 222 H 154 H (70-110) mg/dL Hemoglobin A1c (<=6.0) % Magnesium (1.6-2.3) mg/dL Iron (65-175) UG/DL % Saturation (15.00-50.00) Ferritin (22.0-322.0) ng/mL Total Bilirubin (0.2-1.3) mg/dL Total Protein (6.3-8.2) g/dL Albumin (3.5-5.0) g/dL HDL Cholesterol (40.00-60.00) mg/dL Free T4 (0.78-2.19) ng/dL 01/13/24 01/13/24 Range/Units 16:23 16:38 RBC (4.30-5.90) m/uL Hgb (13.0-17.5) gm/dL Hct (39.0-53.0) % MCHC (31.0-37.0) g/dL RDW (11.5-15.5) % Lymphocytes # (1.0-4.8) k/uL PT (10.0-12.5) sec INR (<1.2) APTT (22.0-30.0) sec ABG pO2 80 L (83-108) mmHg ABG HCO3 26 H (21-25) mmol/L ABG Total CO2 28 H (19-24) mmol/L Creatinine (0.66-1.25) mg/dL Glucose (74-99) mg/dL POC Glucose (mg/dL) 184 H (70-110) mg/dL Hemoglobin A1c (<=6.0) % Magnesium (1.6-2.3) mg/dL Iron (65-175) UG/DL % Saturation (15.00-50.00) Ferritin (22.0-322.0) ng/mL Total Bilirubin (0.2-1.3) mg/dL Total Protein (6.3-8.2) g/dL Albumin (3.5-5.0) g/dL HDL Cholesterol (40.00-60.00) mg/dL Free T4 (0.78-2.19) ng/dL Assessment and Plan (1) Swelling of both lower extremities Current Visit: Yes Status: Acute Code(s): M79.89 - OTHER SPECIFIED SOFT TISSUE DISORDERS SNOMED Code(s): 783016719 (2) Bilateral lower leg cellulitis Current Visit: Yes Status: Acute Code(s): L03.116 - CELLULITIS OF LEFT LOWER LIMB; L03.115 - CELLULITIS OF RIGHT LOWER LIMB SNOMED Code(s): 205457992 (3) Penicillin allergy Current Visit: Yes Status: Acute Code(s): Z88.0 - ALLERGY STATUS TO PENICILLIN SNOMED Code(s): 34741430 Plan: 1patient with a chronic swelling to bilateral lower extremity likely venous stasis dermatitis did have some erythema concerning for secondary cellulitis likely from gram-positive skin karan 2-penicillin allergy that will limit the number of antibiotics safe to use with no history of anaphylaxis 3-patient to continue with cefazolin 3 g every 8 hour along with local wound c are with dry Aquacel silver dressing to the open area lower extremity followed by Layton wrap from just above the toe to below the knee change daily Dictation was produced using [employer] dictation software. please excuse any grammatical, word or spelling errors. Time with Patient: Less than 30
[2024-01-14] MEDS: CYCLOBENZAPRINE 10 MG TAB PO PRN (06:14)
[2024-01-14 06:41] LABS: Glucose,Whole Blood 175 mg/dL (70-110)
[2024-01-14 08:26] LABS: Anisocytosis Slight; Basophils % (A) 0 %; Eosinophils # (A) 0.1 k/uL (0-0.7); Eosinophils % (A) 1 %; HCT 31.9 % (39.0-53.0); HGB 9.5 gm/dL (13.0-17.5); Hypochromasia Marked; Lymphocytes # (A) 0.9 k/uL (1.0-4.8); Lymphocytes % (A) 10 %; MCH 24.1 pg (25.0-35.0); MCHC 29.7 g/dL (31.0-37.0); MCV 81.1 fL (80.0-100.0); Mean Platelet Volume 7.2; Microcytosis Slight; Monocytes # (A) 0.5 k/uL (0-1.0); Monocytes % (A) 6 %; Neutrophils # (A) 6.9 k/uL (1.3-7.7); Neutrophils % (A) 81 %; Platelet Count 311 k/uL (150-450); RBC 3.93 m/uL (4.30-5.90); RDW 18.4 % (11.5-15.5); WBC 8.5 k/uL (3.8-10.6)
--- NOTE | 2024-01-14 08:37 | US ---
EXAMINATION TYPE: US chest DATE OF EXAM: 01/14/2024 COMPARISON: XR chest CLINICAL INDICATION: Male, 73 years old with history of Markings for thoracentesis by pulmonary staff ; TECHNIQUE: Targeted ultrasound of the posterior lower Right EXAM MEASUREMENTS: Right side NOT marked for possible thoracentesis outside the dept. Small pocket of fluid with lung ti ssue noted. Pulmonologists are able to review the images in the patient?s EMR. Patient unable to sit up on his own. Suboptimal. IMPRESSIONS: Patient not marked for thoracentesis. Small pocket of fluid.
[2024-01-14 08:58] LABS: ALT 10 U/L (4-49); AST 16 U/L (17-59); African American GFR (CKD) >90 (>60 ml/min/1.73 sqM); Albumin 3.1 g/dL (3.5-5.0); Alkaline Phosphatase 86 U/L (38-126); Anion Gap 15 mmol/L; Blood Urea Nitrogen 9 mg/dL (9-20); Calcium 8.8 mg/dL (8.4-10.2); Carbon Dioxide 20 mmol/L (22-30); Chloride 103 mmol/L (98-107); Glucose 185 mg/dL (74-99); Magnesium 1.3 mg/dL (1.6-2.3); Non-African American GFR(CKD) >90 (>60 ml/min/1.73 sqM); Sodium 138 mmol/L (137-145); Total Bilirubin 1.3 mg/dL (0.2-1.3); Total Protein 5.7 g/dL (6.3-8.2)
[2024-01-14] MEDS: FUROSEMIDE 10 MG/ML 4 ML VIAL IV SCH ×2 (09:18→17:08)
[2024-01-14] MEDS: SODIUM FERRIC GLUCONAT-SUCROSE 125 MG in SODIUM CHLORIDE 0.9% 100 ML IVPB SCH (10:06)
--- NOTE | 2024-01-14 10:29 | P.PN ---
Subjective Progress Note Date: 01/14/24 Francisco Cao, is a 73-year-old male patient who presented to the ER due to generalized weakness and debility. Per patient. 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 Patient has prompted him to the ER for further evaluation with possible placement. Upon arrival patient was found to be in new A. fib with RVR. Patient's BNP also elevated at 4120.patient has a past medical history of COPD, diabetes mellitus, hyperlipidemia, prostate disorder, sleep apnea, thyroid disorder, chronic lower extremity lymphedema and morbid obesity. chest x-ray completed showing no acute cardiopulmonary disease. At this time patient will be admitted patient on IV Cardizem drip per cardiology. Patient started on IV Lasix. Cardiology service is consulted. Patient started on heparin drip. this time patient is complaining of some shortness of breath. Patient denies chest pain. Patient denies nausea vomiting or diarrhea. Patient denies any urinary burning or frequency PT OT and social work services consulted On 01/13/2024 patient was seen and examined on the medical floor he is alert and oriented x 3 in no apparent distress he is still complaining of shortness of breath otherwise he denies any complaints there is no fever or chills no headache or dizziness no chest pain no cough no nausea or vomiting no abdominal pain no diarrhea and no urinary symptoms On 01/14/2024 patient is alert and oriented 3. Plans today for thoracentesis patient remains on heparin drip and Cardizem drip. Patient also started on cefazolin for infectious diseasebilateral legs Layton wrapped. PT OT services are consulted. Patient denies chest pain or shortness breath. Patient denies nausea vomiting or diarrhea. Patient denies any urinary burning or frequency Objective - Vital Signs Vital signs: Vital Signs Temp 97.5 F L 01/14/24 04:00 Pulse 136 H 01/14/24 04:00 Resp 18 01/14/24 04:00 BP 94/60 01/14/24 04:00 Pulse Ox 95 01/14/24 04:00 FiO2 Intake & Output 01/13/24 01/14/24 01/14/24 18:59 06:59 18:59 Intake Total 165.580 192.811 222 Output Total 0 600 Balance 165.580 -407.189 222 Weight 131.542 kg 122.5 kg Intake: Intake, IV Titration 165.580 192.811 Amount Diltiazem 125 mg In 114.917 Sodium Chloride 0.9% 100 ml @ 5 MG/HR 5 mls/hr IV .Q24H [facility] Rx#:[id number] Heparin Sod,Pork in 0.45% 50.663 192.811 NaCl 25,000 unit In 0.45 % NaCl 1 250ml.bag @ 7. 602 UNITS/KG/HR 10 mls/hr IV .Q24H [facility] Rx#: [id number] Oral 222 Output: Urine 0 600 Other: Voiding Method External Catheter External Catheter - Exam In general patient is alert and oriented x 3 in no apparent distress Head normocephalic and atraumatic Neck supple no JVD no goiter Lungs clear to auscultation bilaterally no wheezing or crackles Heart regular rate and rhythm S1-S2, no rub or gallop Abdomen is soft nontender nondistended positive bowel sounds no hepatosplenomegaly Extremities bilateral lower extremity lymphedema with blisters Neuro no gross focal deficit - Labs CBC & Chem 7: 01/14/24 08:09 01/14/24 08:09 Labs: Abnormal Lab Results - Last 24 Hours (Table) 01/13/24 01/13/24 01/13/24 Range/Units 04:47 04:47 11:58 RBC (4.30-5.90) m/uL Hgb (13.0-17.5) gm/dL Hct (39.0-53.0) % MCH (25.0-35.0) pg MCHC (31.0-37.0) g/dL RDW (11.5-15.5) % Lymphocytes # (1.0-4.8) k/uL APTT (22.0-30.0) sec ABG pO2 (83-108) mmHg ABG HCO3 (21-25) mmol/L ABG Total CO2 (19-24) mmol/L Carbon Dioxide (22-30) mmol/L Glucose (74-99) mg/dL POC Glucose (mg/dL) 154 H (70-110) mg/dL Hemoglobin A1c 10.2 H (<=6.0) % Magnesium 1.3 L (1.6-2.3) mg/dL Iron 31 L (65-175) UG/DL % Saturation 8.83 L (15.00-50.00) Ferritin 20.7 L (22.0-322.0) ng/mL AST (17-59) U/L Total Protein (6.3-8.2) g/dL Albumin (3.5-5.0) g/dL HDL Cholesterol 31.20 L (40.00-60.00) mg/dL Free T4 3.80 H (0.78-2.19) ng/dL 01/13/24 01/13/24 01/13/24 Range/Units 12:46 16:23 16:38 RBC (4.30-5.90) m/uL Hgb (13.0-17.5) gm/dL Hct (39.0-53.0) % MCH (25.0-35.0) pg MCHC (31.0-37.0) g/dL RDW (11.5-15.5) % Lymphocytes # (1.0-4.8) k/uL APTT 51.2 H (22.0-30.0) sec ABG pO2 80 L (83-108) mmHg ABG HCO3 26 H (21-25) mmol/L ABG Total CO2 28 H (19-24) mmol/L Carbon Dioxide (22-30) mmol/L Glucose (74-99) mg/dL POC Glucose (mg/dL) 184 H (70-110) mg/dL Hemoglobin A1c (<=6.0) % Magnesium (1.6-2.3) mg/dL Iron (65-175) UG/DL % Saturation (15.00-50.00) Ferritin (22.0-322.0) ng/mL AST (17-59) U/L Total Protein (6.3-8.2) g/dL Albumin (3.5-5.0) g/dL HDL Cholesterol (40.00-60.00) mg/dL Free T4 (0.78-2.19) ng/dL 01/13/24 01/14/24 01/14/24 Range/Units 20:06 06:25 08:09 RBC 3.93 L (4.30-5.90) m/uL Hgb 9.5 L (13.0-17.5) gm/dL Hct 31.9 L (39.0-53.0) % MCH 24.1 L (25.0-35.0) pg MCHC 29.7 L (31.0-37.0) g/dL RDW 18.4 H (11.5-15.5) % Lymphocytes # 0.9 L (1.0-4.8) k/uL APTT (22.0-30.0) sec ABG pO2 (83-108) mmHg ABG HCO3 (21-25) mmol/L ABG Total CO2 (19-24) mmol/L Carbon Dioxide (22-30) mmol/L Glucose (74-99) mg/dL POC Glucose (mg/dL) 198 H 175 H (70-110) mg/dL Hemoglobin A1c (<=6.0) % Magnesium (1.6-2.3) mg/dL Iron (65-175) UG/DL % Saturation (15.00-50.00) Ferritin (22.0-322.0) ng/mL AST (17-59) U/L Total Protein (6.3-8.2) g/dL Albumin (3.5-5.0) g/dL HDL Cholesterol (40.00-60.00) mg/dL Free T4 (0.78-2.19) ng/dL 01/14/24 Range/Units 08:09 RBC (4.30-5.90) m/uL Hgb (13.0-17.5) gm/dL Hct (39.0-53.0) % MCH (25.0-35.0) pg MCHC (31.0-37.0) g/dL RDW (11.5-15.5) % Lymphocytes # (1.0-4.8) k/uL APTT (22.0-30.0) sec ABG pO2 (83-108) mmHg ABG HCO3 (21-25) mmol/L ABG Total CO2 (19-24) mmol/L Carbon Dioxide 20 L (22-30) mmol/L Glucose 185 H (74-99) mg/dL POC Glucose (mg/dL) (70-110) mg/dL Hemoglobin A1c (<=6.0) % Magnesium 1.3 L (1.6-2.3) mg/dL Iron (65-175) UG/DL % Saturation (15.00-50.00) Ferritin (22.0-322.0) ng/mL AST 16 L (17-59) U/L Total Protein 5.7 L (6.3-8.2) g/dL Albumin 3.1 L (3.5-5.0) g/dL HDL Cholesterol (40.00-60.00) mg/dL Free T4 (0.78-2.19) ng/dL Assessment and Plan Assessment: 1. Acute CHF exacerbation 2. New onset A. fib with RVR 3. Chronic bilateral lower extremity lymphedema 4. History of COPD 5. History of morbid obesity 6. Obstructive sleep apnea 7. History of hyperlipidemia 8. History of hypothyroidism 9. Diabetes mellitus type 2. Sliding scale coverage ordered DVT prophylaxis heparin drip. GI prophylaxis Protonix cardiology service is consulted Patient started on IV Lasix Patient started on IV Cardizem and IV heparin drip 2-D echo ordered infectious disease service is consulted Repeat labs ordered PT OT and social work services consulted
[2024-01-14 11:35] LABS: Glucose,Whole Blood 230 mg/dL (70-110)
[2024-01-14 13:05] LABS: Potassium 3.3 mmol/L (3.5-5.1)
--- NOTE | 2024-01-14 14:23 | P.CNPUL ---
History of Present Illness Consult date: 01/14/24 Requesting physician: Aquilino Garber Reason for consult: pleural effusion Chief complaint: Weakness and shortness of breath History of present illness: This is a 73-year-old white male known history of multiple medical problems including medical debility, COPD, diabetes, hypertension, hypothyroidism, obstructive sleep apnea syndrome, on CPAP, patient was brought into the ER on 01/11 mostly because of chronic debility weakness, shortness of breath, and unable to care for himself at home. Basically the son was requesting possible placement on his initial evaluation the patient was noted to be in atrial fibrillation with RVR, chest x-ray showed evidence of pulmonary edema, and bilateral pleural effusions, patient was also noted to have significant swelling and lymphedema in lower extremities. CT angiogram of the chest showed moderate right-sided pleural effusion and findings of congestive heart failure. Patient was admitted, and this consult was initiated. Mostly because of his pleural effusions. Ultrasound of the chest showed small pocket of pleural effusion, not large enough to consider safe thoracentesis. Patient unable to sit up on his own and the ultrasound was basically suboptimal. Considering the findings on the ultrasound and considering the overall picture, I believe the patient will benefit more from diuretics than actual thoracentesis patient is already on diuretics and being followed by cardiology. CBC showed hemoglobin of 9.5 WBC count 8.5 electrolytes are normal except for low potassium of 3.3, BNP level is around 4000 Review of Systems REVIEW OF SYSTEMS: CONSTITUTIONAL: Weakness and debility EYES: Negative. ENT: Negative. CARDIAC: Shortness of breath no chest pain PULMONARY: Shortness of breath GI: Negative. GENITOURINARY: Negative. MUSCULOSKELETAL: Significant fluid retention and swelling in lower extremities SKIN: Negative. NEUROPSYCH: Negative. ENDOCRINE: Negative. HEMATOLOGIC: Negative. Past Medical History Past Medical History: COPD, Diabetes Mellitus, Eye Disorder, Hyperlipidemia, Hypertension, Prostate Disorder, Sleep Apnea/CPAP/BIPAP, Thyroid Disorder Additional Past Medical History / Comment(s): HX PVC'S. MILD COPD. ANEMIA. HX KIDNEY STONES. BPH. HAD DIABETIC RETINOPATHY TX ON EYES. HAS HAD PICC LINE IN PAST, NOW OUT. CHRONIC BACK AND KNEE PAIN History of Any Multi-Drug Resistant Organisms: None Reported Past Surgical History: Orthopedic Surgery Additional Past Surgical History / Comment(s): RT THYROIDECTOMY. MASS FROM BACK, FATTY TUMOR. NASAL MASS REMOVED. LASER EYES, INTRAOCULAR LENS. WOUND ON RT FOOT I&D. LEFT KNEE ARTHROSCOPY, CYST REMOVED FROM TAILBONE Past Anesthesia/Blood Transfusion Reactions: Previous Problems w/ Anesthesia Additional Past Anesthesia/Blood Transfusion Reaction / Comment(s): OCC TAKES LONG TIME TO AWAKEN. Past Psychological History: No Psychological Hx Reported Smoking Status: Former smoker Past Alcohol Use History: None Reported Past Drug Use History: None Reported - Past Family History Mother Family Medical History: COPD Father Family Medical History: Diabetes Mellitus Additional Family Medical History / Comment(s): heart failure Medications and Allergies Home Medications Medication Instructions Recorded Confirmed Type Atorvastatin [Lipitor] 20 mg PO DAILY 03/06/16 01/12/24 History Furosemide 40 mg PO BID@0900,1600 03/06/16 01/12/24 History Levothyroxine Sodium [Synthroid] 25 mcg PO DAILY 03/06/16 01/12/24 History Potassium Chloride [Klor-Con M10] 10 meq PO BID 03/06/16 01/12/24 History lisinopriL [Lisinopril] 20 mg PO BID 03/06/16 01/12/24 History metFORMIN HCL 500 mg PO BID 03/06/16 01/12/24 History Tamsulosin [Flomax] 0.4 mg PO BID 11/17/17 01/12/24 History Acetaminophen [Tylenol Arthritis] 650 mg PO Q6H PRN 11/05/20 01/12/24 History Insulin Lispro [humaLOG Kwikpen] See Protocol SQ TID-W/MEALS 11/05/20 01/12/24 History amLODIPine [Norvasc] 5 mg PO DAILY 11/05/20 01/12/24 History carvediloL [Coreg] 25 mg PO BID 11/05/20 01/12/24 History cloNIDine HCL [Catapres] 0.3 mg PO TID 11/05/20 01/12/24 History hydrALAZINE HCL [Apresoline] 50 mg PO BID 11/05/20 01/12/24 History Acetaminophen-Codeine 300-30mg 1 tab PO TID PRN 01/12/24 01/12/24 History [Tylenol w/codeine #3] Cyclobenzaprine [Flexeril] 10 mg PO TID PRN 01/12/24 01/12/24 History Insulin Glargine,Hum.rec.anlog 100 units SQ HS 01/12/24 01/12/24 History [Gloria Hernandez] Vitamin B Complex 1 cap PO DAILY 01/12/24 01/12/24 History Allergies Allergy/AdvReac Type Severity Reaction Status Date / Time adhesive Allergy BLISTERING Verified 01/12/24 11:31 RASH amoxicillin Allergy Rash/Hives Verified 01/12/24 11:31 Penicillins Allergy Rash/Hives Verified 01/12/24 11:31 pollen extracts Allergy RHINITIS, Verified 01/12/24 11:31 SORE THROAT Physical Exam Vitals: Vital Signs Temp Pulse Pulse Resp BP Pulse Ox 01/14/24 12:20 97.6 F 95 117 H 18 129/66 94 L 01/14/24 08:10 97.6 F 118 H 88 18 125/79 94 L 01/14/24 04:00 97.5 F L 129 H 136 H 18 94/60 95 01/14/24 02:00 130 H 18 01/14/24 00:00 97.7 F 130 H 18 97/60 94 L 01/13/24 20:00 98.6 F 115 H 18 103/63 95 01/13/24 16:00 124 H 133/83 95 Intake and Output 01/13/24 01/14/24 01/14/24 22:59 06:59 14:59 Intake Total 192.811 345.917 Output Total 300 300 600 Balance -300 -107.189 -254.083 Intake: Intake, IV Titration 192.811 123.917 Amount Diltiazem 125 mg In 123.917 Sodium Chloride 0.9% 100 ml @ 5 MG/HR 5 mls/hr IV .Q24H [facility] Rx#:[id number] Heparin Sod,Pork in 0.45% 192.811 NaCl 25,000 unit In 0.45 % NaCl 1 250ml.bag @ 7. 602 UNITS/KG/HR 10 mls/hr IV .Q24H [facility] Rx#: [id number] Oral 222 Output: Urine 300 300 600 Other: Voiding Method External Catheter External Catheter External Catheter Weight 122.5 kg General: Reveals 73-year-old white male, chronically ill, bedbound, in no dist ress, on 2 L nasal cannula Skin: Skin is warm and dry and no rashes or lesions are noted. Eye: Pupils are equal, round and reactive to light, extra-ocular movements are intact; there is normal conjunctiva bilaterally. Ears, nose, mouth and throat: There are moist mucous membranes and no oral l esions. Neck: The neck is supple, there is no tenderness or JVD. Cardiovascular: Regular irregular rhythm, distant S1-S2, no S3 gallop. Respiratory: Diminished breath sounds at the bases no crackles rhonchi or wheezes Gastrointestinal: Obese soft nontender no megaly no rebound le. Musculoskeletal: Normal ROM, no tenderness, both lower extremities are wrapped with Layton wrap's apparently had lymphedema Neurological: Alert and oriented x 3 no gross focal neurologic deficit Psychiatric: Normal mood, affect and normal mental status examination Results - Laboratory Findings CBC and BMP: 01/14/24 08:09 01/14/24 08:09 ABG ABG pH 7.44 (7.35-7.45) 01/13/24 16:23 ABG pCO2 39 mmHg (35-45) 01/13/24 16:23 ABG pO2 80 mmHg (83-108) L 01/13/24 16:23 ABG O2 Saturation 96.2 % (94-97) 01/13/24 16:23 PT/INR, D-dimer PT 13.7 sec (10.0-12.5) H 01/13/24 04:47 INR 1.3 (<1.2) H 01/13/24 04:47 D-Dimer 0.91 mg/L FEU (<0.60) H 01/12/24 11:36 Abnormal lab findings: Abnormal Labs 01/12/24 01/12/24 01/12/24 11:36 11:36 11:36 RBC 4.02 L Hgb 9.7 L Hct 31.8 L MCV 79.0 L MCH 24.1 L MCHC 30.5 L RDW 18.2 H Lymphocytes # PT 13.9 H INR 1.3 H APTT D-Dimer 0.91 H ABG pO2 ABG HCO3 ABG Total CO2 Potassium Carbon Dioxide Creatinine 0.52 L Glucose 150 H POC Glucose (mg/dL) Hemoglobin A1c Magnesium 1.2 L Iron % Saturation Ferritin Total Bilirubin 1.9 H AST Total Protein Albumin HDL Cholesterol TSH Free T4 Urine Ketones 01/12/24 01/12/24 01/12/24 11:36 15:08 17:00 RBC Hgb Hct MCV MCH MCHC RDW Lymphocytes # PT INR APTT D-Dimer ABG pO2 ABG HCO3 ABG Total CO2 Potassium Carbon Dioxide Creatinine Glucose POC Glucose (mg/dL) 170 H Hemoglobin A1c 10.3 H Magnesium Iron % Saturation Ferritin Total Bilirubin AST Total Protein Albumin HDL Cholesterol TSH Free T4 Urine Ketones Trace H 01/12/24 01/13/24 01/13/24 17:41 04:47 04:47 RBC 3.79 L Hgb 9.5 L Hct 30.7 L MCV MCH MCHC 30.8 L RDW 18.5 H Lymphocytes # 0.7 L PT INR APTT D-Dimer ABG pO2 ABG HCO3 ABG Total CO2 Potassium Carbon Dioxide Creatinine 0.55 L Glucose 192 H POC Glucose (mg/dL) Hemoglobin A1c Magnesium Iron % Saturation Ferritin Total Bilirubin 1.8 H AST Total Protein 5.6 L Albumin 3.1 L HDL Cholesterol TSH <0.015 L Free T4 Urine Ketones 01/13/24 01/13/24 01/13/24 04:47 04:47 04:47 RBC Hgb Hct MCV MCH MCHC RDW Lymphocytes # PT 13.7 H INR 1.3 H APTT 41.0 H D-Dimer ABG pO2 ABG HCO3 ABG Total CO2 Potassium Carbon Dioxide Creatinine Glucose POC Glucose (mg/dL) Hemoglobin A1c 10.2 H Magnesium 1.3 L Iron 31 L % Saturation 8.83 L Ferritin 20.7 L Total Bilirubin AST Total Protein Albumin HDL Cholesterol 31.20 L TSH Free T4 3.80 H Urine Ketones 01/13/24 01/13/24 01/13/24 08:17 11:58 12:46 RBC Hgb Hct MCV MCH MCHC RDW Lymphocytes # PT INR APTT 51.2 H D-Dimer ABG pO2 ABG HCO3 ABG Total CO2 Potassium Carbon Dioxide Creatinine Glucose POC Glucose (mg/dL) 222 H 154 H Hemoglobin A1c Magnesium Iron % Saturation Ferritin Total Bilirubin AST Total Protein Albumin HDL Cholesterol TSH Free T4 Urine Ketones 01/13/24 01/13/24 01/13/24 16:23 16:38 20:06 RBC Hgb Hct MCV MCH MCHC RDW Lymphocytes # PT INR APTT D-Dimer ABG pO2 80 L ABG HCO3 26 H ABG Total CO2 28 H Potassium Carbon Dioxide Creatinine Glucose POC Glucose (mg/dL) 184 H 198 H Hemoglobin A1c Magnesium Iron % Saturation Ferritin Total Bilirubin AST Total Protein Albumin HDL Cholesterol TSH Free T4 Urine Ketones 01/14/24 01/14/24 01/14/24 06:25 08:09 08:09 RBC 3.93 L Hgb 9.5 L Hct 31.9 L MCV MCH 24.1 L MCHC 29.7 L RDW 18.4 H Lymphocytes # 0.9 L PT INR APTT D-Dimer ABG pO2 ABG HCO3 ABG Total CO2 Potassium 3.3 L Carbon Dioxide 20 L Creatinine Glucose 185 H POC Glucose (mg/dL) 175 H Hemoglobin A1c Magnesium 1.3 L Iron % Saturation Ferritin Total Bilirubin AST 16 L Total Protein 5.7 L Albumin 3.1 L HDL Cholesterol TSH Free T4 Urine Ketones 01/14/24 01/14/24 11:33 11:40 RBC Hgb Hct MCV MCH MCHC RDW Lymphocytes # PT INR APTT 118.8 H* D-Dimer ABG pO2 ABG HCO3 ABG Total CO2 Potassium Carbon Dioxide Creatinine Glucose POC Glucose (mg/dL) 230 H Hemoglobin A1c Magnesium Iron % Saturation Ferritin Total Bilirubin AST Total Protein Albumin HDL Cholesterol TSH Free T4 Urine Ketones - Diagnostic Findings CT scan - chest: image reviewed (As noted in HPI patient does have small bilateral pleural effusions and evidence of congestive heart failure) Assessment and Plan Assessment: Impression: Acute congestive heart failure with preserved ejection fraction New onset atrial fibrillation likely contributing to his congestive heart failu re Acute hypoxic respiratory failure secondary to above Small bilateral pleural effusions secondary to CHF not large enough to consider safe thoracentesis Chronic lower extremities lymphedema with skin changes Questionable underlying COPD Dyslipidemia History of underlying coronary artery disease Morbid obesity History of obstructive sleep apnea syndrome History of hypothyroidism Type 2 diabetes Recommendation: I fully agree with the present treatment plan including diuretics Reviewed ultrasound of the chest, no need for thoracentesis Continue Cardizem for atrial fibrillation with RVR Continue Lasix at 40 mg IV push twice daily and continue Aldactone 25 mg p.o. daily Monitor daily labs electrolytes and renal profile Continue Entresto Resume home meds Will continue to follow Time with Patient: Greater than 30
[2024-01-14 15:03] VITALS: BMI 38.7
[2024-01-14] MEDS: APIXABAN 5 MG TAB PO SCH (15:20)
[2024-01-14] MEDS: POTASSIUM CHLORIDE ER 20 MEQ TAB.ER PO STA (15:20)
[2024-01-14 16:33] LABS: Glucose,Whole Blood 164 mg/dL (70-110)
--- NOTE | 2024-01-14 17:05 | P.PN ---
Subjective Progress Note Date: 01/14/24 Principal diagnosis: Reason for follow-up is bilateral lower extremity lymphedema and cellulitis Patient is a 73-year-old male with a past medical history significant for diabetes mellitus hypertension hyperlipidemia prostate disorder COPD and did have bilateral lower extremity lymphedema and venous stasis dermatitis patient was brought into the hospital for evaluation of debility patient was also noticed to have some increasing swelling redness and drainage concerning for cellulitis. On today's evaluation that is 01/14/2024,the patient denies any fever or any ch ills, patient is breathing comfortably on 2 L current oxygen, the patient denies chest pain shortness of breath and no significant cough, patient denies abdominal pain, no nausea vomiting or diarrhea, denies any worsening pain to the lower extremity. Patient white count is 8.5 creatinine 0.66 Objective - Vital Signs Vital signs: Vital Signs Temp 97.6 F 01/14/24 12:20 Pulse 117 H 01/14/24 12:20 Resp 18 01/14/24 12:20 BP 129/66 01/14/24 12:20 Pulse Ox 94 L 01/14/24 12:20 FiO2 Intake & Output 01/13/24 01/14/24 01/14/24 18:59 06:59 18:59 Intake Total 165.580 192.811 345.917 Output Total 0 600 600 Balance 165.580 -407.189 -254.083 Weight 131.542 kg 122.5 kg 122.5 kg Intake: Intake, IV Titration 165.580 192.811 123.917 Amount Diltiazem 125 mg In 114.917 123.917 Sodium Chloride 0.9% 100 ml @ 5 MG/HR 5 mls/hr IV .Q24H [facility] Rx#:[id number] Heparin Sod,Pork in 0.45% 50.663 192.811 NaCl 25,000 unit In 0.45 % NaCl 1 250ml.bag @ 7. 602 UNITS/KG/HR 10 mls/hr IV .Q24H [facility] Rx#: [id number] Oral 222 Output: Urine 0 600 600 Other: Voiding Method External Catheter External Catheter External Catheter - Exam GENERAL DESCRIPTION: An elderly male lying in bed in no distress RESPIRATORY SYSTEM: Unlabored breathing , decreased breath sounds at bases HEART: S1 S2 regular rate and rhythm , ABDOMEN: Soft , no tenderness EXTREMITIES: Bilateral extremity few swelling lymphedema redness no drainage or - Labs CBC & Chem 7: 01/14/24 08:09 01/14/24 08:09 Labs: Abnormal Lab Results - Last 24 Hours (Table) 01/13/24 01/13/24 01/14/24 Range/Units 04:47 20:06 06:25 RBC (4.30-5.90) m/uL Hgb (13.0-17.5) gm/dL Hct (39.0-53.0) % MCH (25.0-35.0) pg MCHC (31.0-37.0) g/dL RDW (11.5-15.5) % Lymphocytes # (1.0-4.8) k/uL APTT (22.0-30.0) sec Potassium (3.5-5.1) mmol/L Carbon Dioxide (22-30) mmol/L Glucose (74-99) mg/dL POC Glucose (mg/dL) 198 H 175 H (70-110) mg/dL Magnesium (1.6-2.3) mg/dL Iron 31 L (65-175) UG/DL % Saturation 8.83 L (15.00-50.00) Ferritin 20.7 L (22.0-322.0) ng/mL AST (17-59) U/L Total Protein (6.3-8.2) g/dL Albumin (3.5-5.0) g/dL HDL Cholesterol 31.20 L (40.00-60.00) mg/dL 01/14/24 01/14/24 01/14/24 Range/Units 08:09 08:09 11:33 RBC 3.93 L (4.30-5.90) m/uL Hgb 9.5 L (13.0-17.5) gm/dL Hct 31.9 L (39.0-53.0) % MCH 24.1 L (25.0-35.0) pg MCHC 29.7 L (31.0-37.0) g/dL RDW 18.4 H (11.5-15.5) % Lymphocytes # 0.9 L (1.0-4.8) k/uL APTT (22.0-30.0) sec Potassium 3.3 L (3.5-5.1) mmol/L Carbon Dioxide 20 L (22-30) mmol/L Glucose 185 H (74-99) mg/dL POC Glucose (mg/dL) 230 H (70-110) mg/dL Magnesium 1.3 L (1.6-2.3) mg/dL Iron (65-175) UG/DL % Saturation (15.00-50.00) Ferritin (22.0-322.0) ng/mL AST 16 L (17-59) U/L Total Protein 5.7 L (6.3-8.2) g/dL Albumin 3.1 L (3.5-5.0) g/dL HDL Cholesterol (40.00-60.00) mg/dL 01/14/24 01/14/24 Range/Units 11:40 16:32 RBC (4.30-5.90) m/uL Hgb (13.0-17.5) gm/dL Hct (39.0-53.0) % MCH (25.0-35.0) pg MCHC (31.0-37.0) g/dL RDW (11.5-15.5) % Lymphocytes # (1.0-4.8) k/uL APTT 118.8 H* (22.0-30.0) sec Potassium (3.5-5.1) mmol/L Carbon Dioxide (22-30) mmol/L Glucose (74-99) mg/dL POC Glucose (mg/dL) 164 H (70-110) mg/dL Magnesium (1.6-2.3) mg/dL Iron (65-175) UG/DL % Saturation (15.00-50.00) Ferritin (22.0-322.0) ng/mL AST (17-59) U/L Total Protein (6.3-8.2) g/dL Albumin (3.5-5.0) g/dL HDL Cholesterol (40.00-60.00) mg/dL Assessment and Plan (1) Swelling of both lower extremities Current Visit: Yes Status: Acute Code(s): M79.89 - OTHER SPECIFIED SOFT TISSUE DISORDERS SNOMED Code(s): 936548764 (2) Bilateral lower leg cellulitis Current Visit: Yes Status: Acute Code(s): L03.116 - CELLULITIS OF LEFT LOWER LIMB; L03.115 - CELLULITIS OF RIGHT LOWER LIMB SNOMED Code(s): 370456968 (3) Penicillin allergy Current Visit: Yes Status: Acute Code(s): Z88.0 - ALLERGY STATUS TO PENICILLIN SNOMED Code(s): 02289806 Plan: 1patient with a chronic swelling to bilateral lower extremity likely venous stasis dermatitis did have some erythema concerning for secondary cellulitis lik haleigh from gram-positive skin karan 2-penicillin allergy that will limit the number of antibiotics safe to use with no history of anaphylaxis 3-patient to continue with dry Aquacel silver dressing to the open area lower extremity followed by Layton wrap from just above the toe to below the knee change daily 4we will continue patient on cefazolin while inpatient and transition to oral antibiotics on discharge. Son at the bedside questions answered Dictation was produced using [employer] dictation software. please excuse any grammatical, word or spelling errors. Time with Patient: Less than 30
[2024-01-14 19:55] LABS: Glucose,Whole Blood 174 mg/dL (70-110)
[2024-01-14] MEDS: SACUBITRIL/VALSARTAN 24 MG-26 MG TABLET PO SCH (20:57)
[2024-01-14] MEDS ORDERED: APIXABAN 5 MG TAB PO SCH (21:00)
--- NOTE | 2024-01-14 21:57 | P.PN ---
Subjective Progress Note Date: 01/14/24 January 14, 2024 Patient's echocardiogram showed an EF of 35 to 40%, moderate LVH, mild mitral regurgitation, moderate left atrial dilatation Patient is clinically improving, heart rates are better controlled, Assessment: 1. New onset A-fib. [id number] score of 6. 2. 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 Right thyroid enlargement. History of left thyroid resection - maintained on Synthroid 25 mcg. 3. Acute HFpEF exacerbation. 4. Coronary artery calcifications. 5. Acute hypoxic respiratory failure. Small right pulmonary effusion. 6. Obesity. 7. Chronic lower extremity lymphedema with skin changes. 8. COPD. 9. Dyslipidemia. Plan: A-fib possibly related to hyperthyroidism - consult PCP to see if endocrine consult is needed. Add Coreg 25 mg twice daily. Increase Lipitor to 40 mg daily. Add Farxiga 10 mg daily. Add Aldactone 25 mg daily. Discontinue levothyroxine. Discontinue clonidine and maximize other antihypertensive medications in the meantime. Maintain diuresis and cardiovascular therapy for CHF. HPI Patient is a 73-year-old male with past medical history of COPD, diabetes, hypertension, hyperlipidemia, chronic lymphedema. He is being consulted for new onset A-fib with RVR. He was brought to the ED yesterday for chronic debility. Since he has been here he has increased shortness of breath - currently on 3 L nasal cannula. EKG shows A-fib with RVR and left axis deviation. CTA on 01/12/2024 shows small to moderate right pleural effusion and small mc cardial effusion. Objective - Vital Signs Vital signs: Vital Signs Temp 97.6 F 01/14/24 16:00 Pulse 108 H 01/14/24 20:59 Resp 18 01/14/24 20:59 BP 116/60 01/14/24 20:59 Pulse Ox 92 L 01/14/24 20:59 FiO2 Intake & Output 01/14/24 01/14/24 01/15/24 06:59 18:59 06:59 Intake Total 192.811 463.917 Output Total 600 1325 Balance -407.189 -861.083 Weight 122.5 kg 122.5 kg Intake: Intake, IV Titration 192.811 123.917 Amount Diltiazem 125 mg In 123.917 Sodium Chloride 0.9% 100 ml @ 5 MG/HR 5 mls/hr IV .Q24H [facility] Rx#:[id number] Heparin Sod,Pork in 0.45% 192.811 NaCl 25,000 unit In 0.45 % NaCl 1 250ml.bag @ 7. 602 UNITS/KG/HR 10 mls/hr IV .Q24H [facility] Rx#: [id number] Oral 340 Output: Urine 600 1325 Other: Voiding Method External Catheter External Catheter - Labs CBC & Chem 7: 01/14/24 08:09 01/14/24 08:09 Labs: Abnormal Lab Results - Last 24 Hours (Table) 01/14/24 01/14/24 01/14/24 Range/Units 06:25 08:09 08:09 RBC 3.93 L (4.30-5.90) m/uL Hgb 9.5 L (13.0-17.5) gm/dL Hct 31.9 L (39.0-53.0) % MCH 24.1 L (25.0-35.0) pg MCHC 29.7 L (31.0-37.0) g/dL RDW 18.4 H (11.5-15.5) % Lymphocytes # 0.9 L (1.0-4.8) k/uL APTT (22.0-30.0) sec Potassium 3.3 L (3.5-5.1) mmol/L Carbon Dioxide 20 L (22-30) mmol/L Glucose 185 H (74-99) mg/dL POC Glucose (mg/dL) 175 H (70-110) mg/dL Magnesium 1.3 L (1.6-2.3) mg/dL AST 16 L (17-59) U/L Total Protein 5.7 L (6.3-8.2) g/dL Albumin 3.1 L (3.5-5.0) g/dL 01/14/24 01/14/24 01/14/24 Range/Units 11:33 11:40 16:32 RBC (4.30-5.90) m/uL Hgb (13.0-17.5) gm/dL Hct (39.0-53.0) % MCH (25.0-35.0) pg MCHC (31.0-37.0) g/dL RDW (11.5-15.5) % Lymphocytes # (1.0-4.8) k/uL APTT 118.8 H* (22.0-30.0) sec Potassium (3.5-5.1) mmol/L Carbon Dioxide (22-30) mmol/L Glucose (74-99) mg/dL POC Glucose (mg/dL) 230 H 164 H (70-110) mg/dL Magnesium (1.6-2.3) mg/dL AST (17-59) U/L Total Protein (6.3-8.2) g/dL Albumin (3.5-5.0) g/dL 01/14/24 Range/Units 19:54 RBC (4.30-5.90) m/uL Hgb (13.0-17.5) gm/dL Hct (39.0-53.0) % MCH (25.0-35.0) pg MCHC (31.0-37.0) g/dL RDW (11.5-15.5) % Lymphocytes # (1.0-4.8) k/uL APTT (22.0-30.0) sec Potassium (3.5-5.1) mmol/L Carbon Dioxide (22-30) mmol/L Glucose (74-99) mg/dL POC Glucose (mg/dL) 174 H (70-110) mg/dL Magnesium (1.6-2.3) mg/dL AST (17-59) U/L Total Protein (6.3-8.2) g/dL Albumin (3.5-5.0) g/dL
[2024-01-15 06:05] LABS: Glucose,Whole Blood 142 mg/dL (70-110)
[2024-01-15 11:36] LABS: Glucose,Whole Blood 144 mg/dL (70-110)
[2024-01-15 12:01] LABS: Anisocytosis Slight; Basophils % (A) 0 %; Eosinophils # (A) 0.1 k/uL (0-0.7); Eosinophils % (A) 1 %; HCT 33.2 % (39.0-53.0); Hypochromasia Marked; Lymphocytes # (A) 0.8 k/uL (1.0-4.8); Lymphocytes % (A) 9 %; MCH 24.6 pg (25.0-35.0); MCHC 30.2 g/dL (31.0-37.0); MCV 81.3 fL (80.0-100.0); Microcytosis Slight; Monocytes # (A) 0.6 k/uL (0-1.0); Monocytes % (A) 7 %; Neutrophils # (A) 6.7 k/uL (1.3-7.7); Neutrophils % (A) 81 %; Platelet Count 297 k/uL (150-450); RBC 4.08 m/uL (4.30-5.90); RDW 18.7 % (11.5-15.5); WBC 8.2 k/uL (3.8-10.6)
[2024-01-15 12:12] LABS: ALT 6 U/L (4-49); AST 13 U/L (17-59); African American GFR (CKD) >90 (>60 ml/min/1.73 sqM); Albumin 2.8 g/dL (3.5-5.0); Alkaline Phosphatase 88 U/L (38-126); Anion Gap 17 mmol/L; Blood Urea Nitrogen 7 mg/dL (9-20); Calcium 8.8 mg/dL (8.4-10.2); Carbon Dioxide 19 mmol/L (22-30); Chloride 104 mmol/L (98-107); Glucose 136 mg/dL (74-99); Non-African American GFR(CKD) >90 (>60 ml/min/1.73 sqM); Potassium 3.1 mmol/L (3.5-5.1); Sodium 140 mmol/L (137-145); Total Bilirubin 1.1 mg/dL (0.2-1.3); Total Protein 5.3 g/dL (6.3-8.2)
[2024-01-15] MEDS ORDERED: Potassium Replacement Protocol 1 EACH MISC MISCELLANE PRN (12:13)
--- NOTE | 2024-01-15 12:31 | P.PN ---
Subjective Progress Note Date: 01/15/24 Principal diagnosis: Acute congestive heart failure with preserved ejection fraction This is a 73-year-old white male known history of multiple medical problems including medical debility, COPD, diabetes, hypertension, hypothyroidism, obstructive sleep apnea syndrome, on CPAP, patient was brought into the ER on 01/11 mostly because of chronic debility weakness, shortness of breath, and unable to care for himself at home. Basically the son was requesting possible placement on his initial evaluation the patient was noted to be in atrial fibrillation with RVR, chest x-ray showed evidence of pulmonary edema, and bilateral pleural effusions, patient was also noted to have significant swelling and lymphedema in lower extremities. CT angiogram of the chest showed moderate right-sided pleural effusion and findings of congestive heart failure. Patient was admitted, and this consult was initiated. Mostly because of his pleural effusions. Ultrasound of the chest showed small pocket of pleural effusion, not large enough to consider safe thoracentesis. Patient unable to sit up on his own and the ultrasound was basically suboptimal. Considering the findings on the ultrasound and considering the overall picture, I believe the patient will benefit more from diuretics than actual thoracentesis patient is already on diuretics and being followed by cardiology. CBC showed hemoglobin of 9.5 WBC count 8.5 electrolytes are normal except for low potassium of 3.3, BNP level is around 4000 Patient was evaluated today on 01/15/2024, patient is feeling much better today, breathing a lot easier, less shortness of breath, his A-fib/RVR is better controlled today, patient is on Aldactone he is also on Entresto and Lasix 40 mg IV push every 12 hours, improving, and treatment seems to be quite appropriate.WBC count is 8.2 hemoglobin is 10 basic metabolic profile is normal except for potassium of 3.1 being addressed accordingly. 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 - Vital Signs Vital signs: Vital Signs Temp 98.2 F 01/15/24 10:14 Pulse 110 H 01/15/24 10:14 Resp 16 01/15/24 10:14 BP 111/70 01/15/24 10:14 Pulse Ox 94 L 01/15/24 10:14 FiO2 Intake & Output 01/14/24 01/15/24 01/15/24 18:59 06:59 18:59 Intake Total 463.917 240 Output Total 1325 1550 1250 Balance -861.083 -1550 -1010 Weight 122.5 kg 120.5 kg Intake: Intake, IV Titration 123.917 Amount Diltiazem 125 mg In 123.917 Sodium Chloride 0.9% 100 ml @ 5 MG/HR 5 mls/hr IV .Q24H [facility] Rx#:[id number] Oral 340 240 Output: Urine 1325 1550 1250 Other: Voiding Method External Catheter External Catheter External Catheter - Exam General: Reveals 73-year-old white male, chronically ill, bedbound, in no distress, on 2 L nasal cannula Skin: Skin is warm and dry and no rashes or lesions are noted. Eye: Pupils are equal, round and reactive to light, extra-ocular movements are intact; there is normal conjunctiva bilaterally. Ears, nose, mouth and throat: There are moist mucous membranes and no oral lesi ons. Neck: The neck is supple, there is no tenderness or JVD. Cardiovascular: Regular irregular rhythm, distant S1-S2, no S3 gallop. Respiratory: Diminished breath sounds at the bases no crackles rhonchi or wheezes Gastrointestinal: Obese soft nontender no megaly no rebound le. Musculoskeletal: Normal ROM, no tenderness, both lower extremities are wrapped with Layton wrap's apparently had lymphedema Neurological: Alert and oriented x 3 no gross focal neurologic deficit Psychiatric: Normal mood, affect and normal mental status examination - Labs CBC & Chem 7: 01/15/24 11:05 01/15/24 11:05 Labs: Abnormal Lab Results - Last 24 Hours (Table) 01/14/24 01/14/24 01/14/24 Range/Units 08:09 11:40 16:32 RBC (4.30-5.90) m/uL Hgb (13.0-17.5) gm/dL Hct (39.0-53.0) % MCH (25.0-35.0) pg MCHC (31.0-37.0) g/dL RDW (11.5-15.5) % Lymphocytes # (1.0-4.8) k/uL APTT 118.8 H* (22.0-30.0) sec Potassium 3.3 L (3.5-5.1) mmol/L Carbon Dioxide (22-30) mmol/L BUN (9-20) mg/dL Creatinine (0.66-1.25) mg/dL Glucose (74-99) mg/dL POC Glucose (mg/dL) 164 H (70-110) mg/dL AST (17-59) U/L Total Protein (6.3-8.2) g/dL Albumin (3.5-5.0) g/dL 01/14/24 01/15/24 01/15/24 Range/Units 19:54 06:03 11:05 RBC 4.08 L (4.30-5.90) m/uL Hgb 10.0 L (13.0-17.5) gm/dL Hct 33.2 L (39.0-53.0) % MCH 24.6 L (25.0-35.0) pg MCHC 30.2 L (31.0-37.0) g/dL RDW 18.7 H (11.5-15.5) % Lymphocytes # 0.8 L (1.0-4.8) k/uL APTT (22.0-30.0) sec Potassium (3.5-5.1) mmol/L Carbon Dioxide (22-30) mmol/L BUN (9-20) mg/dL Creatinine (0.66-1.25) mg/dL Glucose (74-99) mg/dL POC Glucose (mg/dL) 174 H 142 H (70-110) mg/dL AST (17-59) U/L Total Protein (6.3-8.2) g/dL Albumin (3.5-5.0) g/dL 01/15/24 01/15/24 Range/Units 11:05 11:35 RBC (4.30-5.90) m/uL Hgb (13.0-17.5) gm/dL Hct (39.0-53.0) % MCH (25.0-35.0) pg MCHC (31.0-37.0) g/dL RDW (11.5-15.5) % Lymphocytes # (1.0-4.8) k/uL APTT (22.0-30.0) sec Potassium 3.1 L (3.5-5.1) mmol/L Carbon Dioxide 19 L (22-30) mmol/L BUN 7 L (9-20) mg/dL Creatinine 0.56 L (0.66-1.25) mg/dL Glucose 136 H (74-99) mg/dL POC Glucose (mg/dL) 144 H (70-110) mg/dL AST 13 L (17-59) U/L Total Protein 5.3 L (6.3-8.2) g/dL Albumin 2.8 L (3.5-5.0) g/dL Assessment and Plan Assessment: Impression: Acute congestive heart failure with preserved ejection fraction New onset atrial fibrillation likely contributing to his congestive heart f ailure Acute hypoxic respiratory failure secondary to above Small bilateral pleural effusions secondary to CHF not large enough to consider safe thoracentesis Chronic lower extremities lymphedema with skin changes Questionable underlying COPD Dyslipidemia History of underlying coronary artery disease Morbid obesity History of obstructive sleep apnea syndrome History of hypothyroidism Type 2 diabetes Recommendation: Continue present course of treatment/diuretics and Entresto No need for thoracentesis centesis Continue present medications as listed Continue Lasix at 40 mg IV push twice daily and continue Aldactone 25 mg p.o. daily Continue Entresto Will continue to follow Time with Patient: Less than 30
--- NOTE | 2024-01-15 12:41 | P.PN ---
Subjective Progress Note Date: 01/15/24 Francisco Cao, is a 73-year-old male patient who presented to the ER due to generalized weakness and debility. Per patient. 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 Patient has prompted him to the ER for further evaluation with possible placement. Upon arrival patient was found to be in new A. fib with RVR. Patient's BNP also elevated at 4120.patient has a past medical history of COPD, diabetes mellitus, hyperlipidemia, prostate disorder, sleep apnea, thyroid disorder, chronic lower extremity lymphedema and morbid obesity. chest x-ray completed showing no acute cardiopulmonary disease. At this time patient will be admitted patient on IV Cardizem drip per cardiology. Patient started on IV Lasix. Cardiology service is consulted. Patient started on heparin drip. this time patient is complaining of some shortness of breath. Patient denies chest pain. Patient denies nausea vomiting or diarrhea. Patient denies any urinary burning or frequency PT OT and social work services consulted On 01/13/2024 patient was seen and examined on the medical floor he is alert and oriented x 3 in no apparent distress he is still complaining of shortness of breath otherwise he denies any complaints there is no fever or chills no headache or dizziness no chest pain no cough no nausea or vomiting no abdominal pain no diarrhea and no urinary symptoms On 01/14/2024 patient is alert and oriented 3. Plans today for thoracentesis patient remains on heparin drip and Cardizem drip. Patient also started on cefazolin for infectious diseasebilateral legs Layton wrapped. PT OT services are consulted. Patient denies chest pain or shortness breath. Patient denies nausea vomiting or diarrhea. Patient denies any urinary burning or frequency. On 01/15/2024 patient was seen and examined on the medical floor he is alert and oriented x 3 in no apparent distress, he is still complaining of shortness of breath and generalized weakness, and today he has a new complaint of epigastric and right upper quadrant abdominal pain otherwise he denies any complaints there is no fever or chills no headache or dizziness no chest pain no cough no nausea or vomiting no diarrhea no blood in the stools and no urinary symptoms, at this time patient had multiple medications changes by cardiology, pulmonary are following and no plans at this time for thoracentesis, will check abdomen ultrasound will follow closely. Objective - Vital Signs Vital signs: Vital Signs Temp 98.2 F 01/15/24 10:14 Pulse 110 H 01/15/24 10:14 Resp 16 01/15/24 10:14 BP 111/70 01/15/24 10:14 Pulse Ox 94 L 01/15/24 10:14 FiO2 Intake & Output 01/14/24 01/15/24 01/15/24 18:59 06:59 18:59 Intake Total 463.917 240 Output Total 1325 1550 1250 Balance -861.083 -1550 -1010 Weight 122.5 kg 120.5 kg Intake: Intake, IV Titration 123.917 Amount Diltiazem 125 mg In 123.917 Sodium Chloride 0.9% 100 ml @ 5 MG/HR 5 mls/hr IV .Q24H [facility] Rx#:[id number] Oral 340 240 Output: Urine 1325 1550 1250 Other: Voiding Method External Catheter External Catheter External Catheter - Exam In general patient is alert and oriented x 3 in no apparent distress Head normocephalic and atraumatic Neck supple no JVD no goiter Lungs clear to auscultation bilaterally no wheezing or crackles Heart regular rate and rhythm S1-S2, no rub or gallop Abdomen is soft nontender nondistended positive bowel sounds no hepatosplenomegaly Extremities bilateral lower extremity lymphedema with blisters Neuro no gross focal deficit - Labs CBC & Chem 7: 01/15/24 11:05 01/15/24 11:05 Labs: Abnormal Lab Results - Last 24 Hours (Table) 01/14/24 01/14/24 01/14/24 Range/Units 08:09 11:40 16:32 RBC (4.30-5.90) m/uL Hgb (13.0-17.5) gm/dL Hct (39.0-53.0) % MCH (25.0-35.0) pg MCHC (31.0-37.0) g/dL RDW (11.5-15.5) % Lymphocytes # (1.0-4.8) k/uL APTT 118.8 H* (22.0-30.0) sec Potassium 3.3 L (3.5-5.1) mmol/L Carbon Dioxide (22-30) mmol/L BUN (9-20) mg/dL Creatinine (0.66-1.25) mg/dL Glucose (74-99) mg/dL POC Glucose (mg/dL) 164 H (70-110) mg/dL AST (17-59) U/L Total Protein (6.3-8.2) g/dL Albumin (3.5-5.0) g/dL 01/14/24 01/15/24 01/15/24 Range/Units 19:54 06:03 11:05 RBC 4.08 L (4.30-5.90) m/uL Hgb 10.0 L (13.0-17.5) gm/dL Hct 33.2 L (39.0-53.0) % MCH 24.6 L (25.0-35.0) pg MCHC 30.2 L (31.0-37.0) g/dL RDW 18.7 H (11.5-15.5) % Lymphocytes # 0.8 L (1.0-4.8) k/uL APTT (22.0-30.0) sec Potassium (3.5-5.1) mmol/L Carbon Dioxide (22-30) mmol/L BUN (9-20) mg/dL Creatinine (0.66-1.25) mg/dL Glucose (74-99) mg/dL POC Glucose (mg/dL) 174 H 142 H (70-110) mg/dL AST (17-59) U/L Total Protein (6.3-8.2) g/dL Albumin (3.5-5.0) g/dL 01/15/24 01/15/24 Range/Units 11:05 11:35 RBC (4.30-5.90) m/uL Hgb (13.0-17.5) gm/dL Hct (39.0-53.0) % MCH (25.0-35.0) pg MCHC (31.0-37.0) g/dL RDW (11.5-15.5) % Lymphocytes # (1.0-4.8) k/uL APTT (22.0-30.0) sec Potassium 3.1 L (3.5-5.1) mmol/L Carbon Dioxide 19 L (22-30) mmol/L BUN 7 L (9-20) mg/dL Creatinine 0.56 L (0.66-1.25) mg/dL Glucose 136 H (74-99) mg/dL POC Glucose (mg/dL) 144 H (70-110) mg/dL AST 13 L (17-59) U/L Total Protein 5.3 L (6.3-8.2) g/dL Albumin 2.8 L (3.5-5.0) g/dL Assessment and Plan Assessment: 1. Acute CHF exacerbation 2. New onset A. fib with RVR 3. Chronic bilateral lower extremity lymphedema 4. History of COPD 5. History of morbid obesity 6. Obstructive sleep apnea 7. History of hyperlipidemia 8. History of hypothyroidism 9. Diabetes mellitus type 2. Sliding scale coverage ordered DVT prophylaxis heparin drip. GI prophylaxis Protonix cardiology service is consulted Patient started on IV Lasix Patient started on IV Cardizem and IV heparin drip 2-D echo ordered infectious disease service is consulted Repeat labs ordered PT OT and social work services consulted
[2024-01-15] MEDS: POTASSIUM CHLORIDE ER 20 MEQ TAB.ER PO SCH (15:29)
[2024-01-15 16:38] LABS: Glucose,Whole Blood 143 mg/dL (70-110)
[2024-01-15] MEDS: DEXTROSE 5% IN WATER 100 ML with AMIODARONE 150 MG IV ONE (16:39)
[2024-01-15] MEDS: BUMETANIDE 1 MG TAB PO SCH (16:50)
[2024-01-15] MEDS: AMIODARONE 360 MG in DEXTROSE 5% IN WATER 200 ML IV ONE (16:55)
--- NOTE | 2024-01-15 16:55 | P.PN ---
Subjective Progress Note Date: 01/15/24 Principal diagnosis: Reason for follow-up is bilateral lower extremity lymphedema and cellulitis Patient is a 73-year-old male with a past medical history significant for diabetes mellitus hypertension hyperlipidemia prostate disorder COPD and did have bilateral lower extremity lymphedema and venous stasis dermatitis patient was brought into the hospital for evaluation of debility patient was also noticed to have some increasing swelling redness and drainage concerning for cellulitis. On today's evaluation that is 01/15/2024,the patient remains to be afebrile, kiara schmidvictor m is on room air not requiring supplemental oxygen and denies any shortness of breath no chest pain did have a mild dry cough.Patient denies having any nausea or vomiting, no abdominal pain and no diarrhea has been reported no pain to the lower extremity. Patient white count is 8.0, creatinine 0.56 Objective - Vital Signs Vital signs: Vital Signs Temp 97.7 F 01/15/24 12:00 Pulse 76 01/15/24 12:00 Resp 16 01/15/24 12:00 BP 112/60 01/15/24 12:00 Pulse Ox 94 L 01/15/24 12:00 FiO2 Intake & Output 01/14/24 01/15/24 01/15/24 18:59 06:59 18:59 Intake Total 463.917 480 Output Total 1325 1550 1700 Balance -861.083 -1550 -1220 Weight 122.5 kg 120.5 kg Intake: Intake, IV Titration 123.917 Amount Diltiazem 125 mg In 123.917 Sodium Chloride 0.9% 100 ml @ 5 MG/HR 5 mls/hr IV .Q24H [facility] Rx#:[id number] Oral 340 480 Output: Urine 1325 1550 1700 Other: Voiding Method External Catheter External Catheter External Catheter - Exam GENERAL DESCRIPTION: An elderly male lying in bed in no distress RESPIRATORY SYSTEM: Unlabored breathing , decreased breath sounds at bases HEART: S1 S2 regular rate and rhythm , ABDOMEN: Soft , no tenderness EXTREMITIES: Bilateral extremity few swelling lymphedema redness no drainage or - Labs CBC & Chem 7: 01/15/24 11:05 01/15/24 11:05 Labs: Abnormal Lab Results - Last 24 Hours (Table) 01/14/24 01/15/24 01/15/24 Range/Units 19:54 06:03 11:05 RBC 4.08 L (4.30-5.90) m/uL Hgb 10.0 L (13.0-17.5) gm/dL Hct 33.2 L (39.0-53.0) % MCH 24.6 L (25.0-35.0) pg MCHC 30.2 L (31.0-37.0) g/dL RDW 18.7 H (11.5-15.5) % Lymphocytes # 0.8 L (1.0-4.8) k/uL Potassium (3.5-5.1) mmol/L Carbon Dioxide (22-30) mmol/L BUN (9-20) mg/dL Creatinine (0.66-1.25) mg/dL Glucose (74-99) mg/dL POC Glucose (mg/dL) 174 H 142 H (70-110) mg/dL AST (17-59) U/L Total Protein (6.3-8.2) g/dL Albumin (3.5-5.0) g/dL 01/15/24 01/15/24 01/15/24 Range/Units 11:05 11:35 16:36 RBC (4.30-5.90) m/uL Hgb (13.0-17.5) gm/dL Hct (39.0-53.0) % MCH (25.0-35.0) pg MCHC (31.0-37.0) g/dL RDW (11.5-15.5) % Lymphocytes # (1.0-4.8) k/uL Potassium 3.1 L (3.5-5.1) mmol/L Carbon Dioxide 19 L (22-30) mmol/L BUN 7 L (9-20) mg/dL Creatinine 0.56 L (0.66-1.25) mg/dL Glucose 136 H (74-99) mg/dL POC Glucose (mg/dL) 144 H 143 H (70-110) mg/dL AST 13 L (17-59) U/L Total Protein 5.3 L (6.3-8.2) g/dL Albumin 2.8 L (3.5-5.0) g/dL Assessment and Plan (1) Swelling of both lower extremities Current Visit: Yes Status: Acute Code(s): M79.89 - OTHER SPECIFIED SOFT TISSUE DISORDERS SNOMED Code(s): 717838903 (2) Bilateral lower leg cellulitis Current Visit: Yes Status: Acute Code(s): L03.116 - CELLULITIS OF LEFT LOWER LIMB; L03.115 - CELLULITIS OF RIGHT LOWER LIMB SNOMED Code(s): 732388456 (3) Penicillin allergy Current Visit: Yes Status: Acute Code(s): Z88.0 - ALLERGY STATUS TO PENICILLIN SNOMED Code(s): 44896815 Plan: 1patient with a chronic swelling to bilateral lower extremity likely venous stasis dermatitis did have some erythema concerning for secondary cellulitis likely from gram-positive skin karan 2-penicillin allergy that will limit the number of antibiotics safe to use with no history of anaphylaxis 3-patient to continue with dry Aquacel silver dressing to the open area lower extremity followed by Layton wrap from just above the toe to below the knee change daily 4patient did have some clinical improvement is afebrile white count normal, to continue cefazolin while inpatient and transition to oral antibiotics on discharge. Dictation was produced using [employer] dictation software. please excuse any grammatical, word or spelling errors. Time with Patient: Less than 30
--- NOTE | 2024-01-15 20:08 | P.PN ---
Subjective Progress Note Date: 01/15/24 January 14, 2024 Patient's echocardiogram showed an EF of 35 to 40%, moderate LVH, mild mitral regurgitation, moderate left atrial dilatation Patient is clinically improving, heart rates are better controlled, January 15, 2024 Seen and examined at bedside this a.m. patient is still in A-fib with RVR fluid status is improving, good urine output. Assessment: 1. New onset A-fib. [id number] score of 6. 2. 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 Right thyroid enlargement. History of left thyroid resection - maintained on Synthroid 25 mcg. 3. Acute HFpEF exacerbation. 4. Coronary artery calcifications. 5. Acute hypoxic respiratory failure. Small right pulmonary effusion. 6. Obesity. 7. Chronic lower extremity lymphedema with skin changes. 8. COPD. 9. Dyslipidemia. Plan: A-fib possibly related to hyperthyroidism - consult PCP to see if endocrine consult is needed. Will not do amiodarone because it can affect thyroid function which is already hyperactive. Appreciate endocrinology consult Add Entresto 49/51 mg twice daily Discontinue amlodipine Add Coreg 25 mg twice daily. Increase Lipitor to 40 mg daily. Add Farxiga 10 mg daily. Add Aldactone 25 mg daily. Bumex 1 mg p.o. twice daily Discontinue levothyroxine. Discontinue clonidine and maximize other antihypertensive medications in the meantime. Maintain diuresis and cardiovascular therapy for CHF. HPI Patient is a 73-year-old male with past medical history of COPD, diabetes, hypertension, hyperlipidemia, chronic lymphedema. He is being consulted for new onset A-fib with RVR. He was brought to the ED yesterday for chronic debility. Since he has been here he has increased shortness of breath - currently on 3 L nasal cannula. EKG shows A-fib with RVR and left axis deviation. CTA on 01/12/2024 shows small to moderate right pleural effusion and small pericardial effusion. Objective - Vital Signs Vital signs: Vital Signs Temp 97.8 F 01/15/24 16:00 Pulse 132 H 01/15/24 16:00 Resp 16 01/15/24 16:00 BP 108/56 01/15/24 16:00 Pulse Ox 92 L 01/15/24 16:00 FiO2 Intake & Output 01/15/24 01/15/24 01/16/24 06:59 18:59 06:59 Intake Total 480 Output Total 1549 2049 Balance -1550 -1570 Weight 120.5 kg Intake: Oral 480 Output: Urine 1549 2049 Other: Voiding Method External Catheter External Catheter - Labs CBC & Chem 7: 01/15/24 11:05 01/15/24 11:05 Labs: Abnormal Lab Results - Last 24 Hours (Table) 01/15/24 01/15/24 01/15/24 Range/Units 06:03 11:05 11:05 RBC 4.08 L (4.30-5.90) m/uL Hgb 10.0 L (13.0-17.5) gm/dL Hct 33.2 L (39.0-53.0) % MCH 24.6 L (25.0-35.0) pg MCHC 30.2 L (31.0-37.0) g/dL RDW 18.7 H (11.5-15.5) % Lymphocytes # 0.8 L (1.0-4.8) k/uL Potassium 3.1 L (3.5-5.1) mmol/L Carbon Dioxide 19 L (22-30) mmol/L BUN 7 L (9-20) mg/dL Creatinine 0.56 L (0.66-1.25) mg/dL Glucose 136 H (74-99) mg/dL POC Glucose (mg/dL) 142 H (70-110) mg/dL AST 13 L (17-59) U/L Total Protein 5.3 L (6.3-8.2) g/dL Albumin 2.8 L (3.5-5.0) g/dL 01/15/24 01/15/24 Range/Units 11:35 16:36 RBC (4.30-5.90) m/uL Hgb (13.0-17.5) gm/dL Hct (39.0-53.0) % MCH (25.0-35.0) pg MCHC (31.0-37.0) g/dL RDW (11.5-15.5) % Lymphocytes # (1.0-4.8) k/uL Potassium (3.5-5.1) mmol/L Carbon Dioxide (22-30) mmol/L BUN (9-20) mg/dL Creatinine (0.66-1.25) mg/dL Glucose (74-99) mg/dL POC Glucose (mg/dL) 144 H 143 H (70-110) mg/dL AST (17-59) U/L Total Protein (6.3-8.2) g/dL Albumin (3.5-5.0) g/dL
[2024-01-15 20:35] LABS: Glucose,Whole Blood 150 mg/dL (70-110)
[2024-01-15] MEDS: SACUBITRIL/VALSARTAN 24 MG-26 MG TABLET PO SCH (20:35)
[2024-01-15] MEDS: DILTIAZEM ORAL 30 MG TAB PO SCH (23:13)
[2024-01-16 06:20] LABS: Glucose,Whole Blood 141 mg/dL (70-110)
[2024-01-16 08:05] LABS: Anisocytosis Slight; Basophils % (A) 0 %; Eosinophils # (A) 0.1 k/uL (0-0.7); Eosinophils % (A) 1 %; HCT 34.8 % (39.0-53.0); HGB 10.5 gm/dL (13.0-17.5); Hypochromasia Marked; Lymphocytes # (A) 0.4 k/uL (1.0-4.8); Lymphocytes % (A) 6 %; MCH 24.6 pg (25.0-35.0); MCHC 30.2 g/dL (31.0-37.0); MCV 81.5 fL (80.0-100.0); Mean Platelet Volume 7.2; Microcytosis Slight; Monocytes # (A) 0.6 k/uL (0-1.0); Monocytes % (A) 8 %; Neutrophils # (A) 6.6 k/uL (1.3-7.7); Neutrophils % (A) 84 %; Platelet Count 332 k/uL (150-450); RBC 4.27 m/uL (4.30-5.90); RDW 18.7 % (11.5-15.5); WBC 7.9 k/uL (3.8-10.6)
[2024-01-16 08:09] LABS: ALT 6 U/L (4-49); AST 15 U/L (17-59); African American GFR (CKD) >90 (>60 ml/min/1.73 sqM); Albumin 2.8 g/dL (3.5-5.0); Alkaline Phosphatase 92 U/L (38-126); Anion Gap 17 mmol/L; Blood Urea Nitrogen 7 mg/dL (9-20); Carbon Dioxide 18 mmol/L (22-30); Chloride 106 mmol/L (98-107); Glucose 141 mg/dL (74-99); Non-African American GFR(CKD) >90 (>60 ml/min/1.73 sqM); Potassium 3.2 mmol/L (3.5-5.1); Sodium 141 mmol/L (137-145); Total Protein 5.3 g/dL (6.3-8.2)
[2024-01-16] MEDS: AMIODARONE 450 MG in DEXTROSE 5% IN WATER 250 ML IV SCH (09:35)
--- NOTE | 2024-01-16 10:18 | P.PN ---
Subjective Progress Note Date: 01/16/24 Francisco Cao, is a 73-year-old male patient who presented to the ER due to generalized weakness and debility. Per patient. 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 Patient has prompted him to the ER for further evaluation with possible placement. Upon arrival patient was found to be in new A. fib with RVR. Patient's BNP also elevated at 4120.patient has a past medical history of COPD, diabetes mellitus, hyperlipidemia, prostate disorder, sleep apnea, thyroid disorder, chronic lower extremity lymphedema and morbid obesity. chest x-ray completed showing no acute cardiopulmonary disease. At this time patient will be admitted patient on IV Cardizem drip per cardiology. Patient started on IV Lasix. Cardiology service is consulted. Patient started on heparin drip. this time patient is complaining of some shortness of breath. Patient denies chest pain. Patient denies nausea vomiting or diarrhea. Patient denies any urinary burning or frequency PT OT and social work services consulted On 01/13/2024 patient was seen and examined on the medical floor he is alert and oriented x 3 in no apparent distress he is still complaining of shortness of breath otherwise he denies any complaints there is no fever or chills no headache or dizziness no chest pain no cough no nausea or vomiting no abdominal pain no diarrhea and no urinary symptoms On 01/14/2024 patient is alert and oriented 3. Plans today for thoracentesis patient remains on heparin drip and Cardizem drip. Patient also started on cefazolin for infectious diseasebilateral legs Layton wrapped. PT OT services are consulted. Patient denies chest pain or shortness breath. Patient denies nausea vomiting or diarrhea. Patient denies any urinary burning or frequency. On 01/15/2024 patient was seen and examined on the medical floor he is alert and oriented x 3 in no apparent distress, he is still complaining of shortness of breath and generalized weakness, and today he has a new complaint of epigastric and right upper quadrant abdominal pain otherwise he denies any complaints there is no fever or chills no headache or dizziness no chest pain no cough no nausea or vomiting no diarrhea no blood in the stools and no urinary symptoms, at this time patient had multiple medications changes by cardiology, pulmonary are following and no plans at this time for thoracentesis, will check abdomen ultrasound will follow closely. on 01/16/2024 patient is alert and oriented 3. Patient still having some shortness of breath.TSH level 0.015. Patient's Synthroid DC'd. Added Tapazole. Ultrasound of thyroid has been ordered. Endocrinology services unavailable inpatient patient to follow-up outpatient for further management. Current vital signs temp 98.4, heart rate 120, respiratory rate 18, blood pressure 147/78 with pulse ox 95% on 2 L awaiting cardiology input medications have been adjusted Objective - Vital Signs Vital signs: Vital Signs Temp 98.4 F 01/16/24 09:19 Pulse 124 H 01/16/24 09:19 Resp 18 01/16/24 09:19 BP 147/78 01/16/24 09:19 Pulse Ox 95 01/16/24 09:19 FiO2 Intake & Output 01/15/24 01/16/24 01/16/24 18:59 06:59 18:59 Intake Total 480 Output Total 2049 1599 Balance -1570 -1600 Weight 120 kg Intake: Oral 480 Output: Urine 2049 1599 Other: Voiding Method External Catheter External Catheter # Voids 1 - Exam In general patient is alert and oriented x 3 in no apparent distress Head normocephalic and atraumatic Neck supple no JVD no goiter Lungs clear to auscultation bilaterally no wheezing or crackles Heart regular rate and rhythm S1-S2, no rub or gallop Abdomen is soft nontender nondistended positive bowel sounds no hepatosplenomegaly Extremities bilateral lower extremity lymphedema with blisters Neuro no gross focal deficit - Labs CBC & Chem 7: 01/16/24 07:27 01/16/24 07:27 Labs: Abnormal Lab Results - Last 24 Hours (Table) 01/15/24 01/15/24 01/15/24 Range/Units 11:05 11:05 11:35 RBC 4.08 L (4.30-5.90) m/uL Hgb 10.0 L (13.0-17.5) gm/dL Hct 33.2 L (39.0-53.0) % MCH 24.6 L (25.0-35.0) pg MCHC 30.2 L (31.0-37.0) g/dL RDW 18.7 H (11.5-15.5) % Lymphocytes # 0.8 L (1.0-4.8) k/uL Potassium 3.1 L (3.5-5.1) mmol/L Carbon Dioxide 19 L (22-30) mmol/L BUN 7 L (9-20) mg/dL Creatinine 0.56 L (0.66-1.25) mg/dL Glucose 136 H (74-99) mg/dL POC Glucose (mg/dL) 144 H (70-110) mg/dL AST 13 L (17-59) U/L Total Protein 5.3 L (6.3-8.2) g/dL Albumin 2.8 L (3.5-5.0) g/dL 01/15/24 01/15/24 01/16/24 Range/Units 16:36 20:34 06:19 RBC (4.30-5.90) m/uL Hgb (13.0-17.5) gm/dL Hct (39.0-53.0) % MCH (25.0-35.0) pg MCHC (31.0-37.0) g/dL RDW (11.5-15.5) % Lymphocytes # (1.0-4.8) k/uL Potassium (3.5-5.1) mmol/L Carbon Dioxide (22-30) mmol/L BUN (9-20) mg/dL Creatinine (0.66-1.25) mg/dL Glucose (74-99) mg/dL POC Glucose (mg/dL) 143 H 150 H 141 H (70-110) mg/dL AST (17-59) U/L Total Protein (6.3-8.2) g/dL Albumin (3.5-5.0) g/dL 01/16/24 01/16/24 Range/Units 07:27 07:27 RBC 4.27 L (4.30-5.90) m/uL Hgb 10.5 L (13.0-17.5) gm/dL Hct 34.8 L (39.0-53.0) % MCH 24.6 L (25.0-35.0) pg MCHC 30.2 L (31.0-37.0) g/dL RDW 18.7 H (11.5-15.5) % Lymphocytes # 0.4 L (1.0-4.8) k/uL Potassium 3.2 L (3.5-5.1) mmol/L Carbon Dioxide 18 L (22-30) mmol/L BUN 7 L (9-20) mg/dL Creatinine 0.57 L (0.66-1.25) mg/dL Glucose 141 H (74-99) mg/dL POC Glucose (mg/dL) (70-110) mg/dL AST 15 L (17-59) U/L Total Protein 5.3 L (6.3-8.2) g/dL Albumin 2.8 L (3.5-5.0) g/dL Assessment and Plan Assessment: 1. Acute CHF exacerbation 2. New onset A. fib with RVR 3. Chronic bilateral lower extremity lymphedema 4. History of COPD 5. History of morbid obesity 6. Obstructive sleep apnea 7. History of hyperlipidemia 8. History of hypothyroidism 9. Evidence of Hyperthyroidism at this time, check thyroid ultrasound, start Tapazole 5 mg daily 10. Diabetes mellitus type 2. Sliding scale coverage ordered DVT prophylaxis heparin drip. GI prophylaxis Protonix cardiology service is consulted ultrasound of thyroid ordered infectious disease service is consulted Repeat labs ordered PT OT and social work services consulted
--- NOTE | 2024-01-16 11:33 | P.PN ---
Subjective Progress Note Date: 01/16/24 Principal diagnosis: Acute congestive heart failure with preserved ejection fraction This is a 73-year-old white male known history of multiple medical problems including medical debility, COPD, diabetes, hypertension, hypothyroidism, obstructive sleep apnea syndrome, on CPAP, patient was brought into the ER on 01/11 mostly because of chronic debility weakness, shortness of breath, and unable to care for himself at home. Basically the son was requesting possible placement on his initial evaluation the patient was noted to be in atrial fibrillation with RVR, chest x-ray showed evidence of pulmonary edema, and bilateral pleural effusions, patient was also noted to have significant swelling and lymphedema in lower extremities. CT angiogram of the chest showed moderate right-sided pleural effusion and findings of congestive heart failure. Patient was admitted, and this consult was initiated. Mostly because of his pleural effusions. Ultrasound of the chest showed small pocket of pleural effusion, not large enough to consider safe thoracentesis. Patient unable to sit up on his own and the ultrasound was basically suboptimal. Considering the findings on the ultrasound and considering the overall picture, I believe the patient will benefit more from diuretics than actual thoracentesis patient is already on diuretics and being followed by cardiology. CBC showed hemoglobin of 9.5 WBC count 8.5 electrolytes are normal except for low potassium of 3.3, BNP level is around 4000 Patient was evaluated today on 01/15/2024, patient is feeling much better today, breathing a lot easier, less shortness of breath, his A-fib/RVR is better controlled today, patient is on Aldactone he is also on Entresto and Lasix 40 mg IV push every 12 hours, improving, and treatment seems to be quite appropriate.WBC count is 8.2 hemoglobin is 10 basic metabolic profile is normal except for potassium of 3.1 being addressed accordingly. Patient was seen today on 01/16/2024, patient is complaining of shortness of breath, however he is maintaining adequate pulse oximetry, vitals are relatively normal except for a heart rate of 124, patient is in atrial fibrillation with RVR, O2 saturation 95% on 2 L. Blood pressure is 147/78. Chest x-ray continues to show evidence of congestive heart failure with moderate size right-sided pleural effusion not appreciated to be enlarged on ultrasound however it was a suboptimal ultrasound done of the chest. WBC is 7.9 hemoglobin 10.5 bicarb is 18 BUN is 7 creatinine 0.57 Objective - Vital Signs Vital signs: Vital Signs Temp 98.4 F 01/16/24 09:19 Pulse 124 H 01/16/24 09:19 Resp 18 01/16/24 09:19 BP 147/78 01/16/24 09:19 Pulse Ox 95 01/16/24 09:19 FiO2 Intake & Output 01/15/24 01/16/24 01/16/24 18:59 06:59 18:59 Intake Total 480 Output Total 2049 1599 Balance -1570 -1600 Weight 120 kg Intake: Oral 480 Output: Urine 2049 1599 Other: Voiding Method External Catheter External Catheter External Catheter # Voids 1 - Exam General: Reveals 73-year-old white male, chronically ill, bedbound, in no distress, on 2 L nasal cannula Skin: Skin is warm and dry and no rashes or lesions are noted. Eye: Pupils are equal, round and reactive to light, extra-ocular movements are intact; there is normal conjunctiva bilaterally. Ears, nose, mouth and throat: There are moist mucous membranes and no oral lesions. Neck: The neck is supple, there is no tenderness or JVD. Cardiovascular: Regular irregular rhythm, distant S1-S2, no S3 gallop. Respiratory: Diminished breath sounds at the bases no crackles rhonchi or wheezes Gastrointestinal: Obese soft nontender no megaly no rebound le. Musculoskeletal: Normal ROM, no tenderness, both lower extremities are wrapped with Layton wrap's apparently had lymphedema Neurological: Alert and oriented x 3 no gross focal neurologic deficit Psychiatric: Normal mood, affect and normal mental status examination - Labs CBC & Chem 7: 01/16/24 07:27 01/16/24 07:27 Labs: Abnormal Lab Results - Last 24 Hours (Table) 01/15/24 01/15/24 01/15/24 Range/Units 11:05 11:05 11:35 RBC 4.08 L (4.30-5.90) m/uL Hgb 10.0 L (13.0-17.5) gm/dL Hct 33.2 L (39.0-53.0) % MCH 24.6 L (25.0-35.0) pg MCHC 30.2 L (31.0-37.0) g/dL RDW 18.7 H (11.5-15.5) % Lymphocytes # 0.8 L (1.0-4.8) k/uL Potassium 3.1 L (3.5-5.1) mmol/L Carbon Dioxide 19 L (22-30) mmol/L BUN 7 L (9-20) mg/dL Creatinine 0.56 L (0.66-1.25) mg/dL Glucose 136 H (74-99) mg/dL POC Glucose (mg/dL) 144 H (70-110) mg/dL AST 13 L (17-59) U/L Total Protein 5.3 L (6.3-8.2) g/dL Albumin 2.8 L (3.5-5.0) g/dL 01/15/24 01/15/24 01/16/24 Range/Units 16:36 20:34 06:19 RBC (4.30-5.90) m/uL Hgb (13.0-17.5) gm/dL Hct (39.0-53.0) % MCH (25.0-35.0) pg MCHC (31.0-37.0) g/dL RDW (11.5-15.5) % Lymphocytes # (1.0-4.8) k/uL Potassium (3.5-5.1) mmol/L Carbon Dioxide (22-30) mmol/L BUN (9-20) mg/dL Creatinine (0.66-1.25) mg/dL Glucose (74-99) mg/dL POC Glucose (mg/dL) 143 H 150 H 141 H (70-110) mg/dL AST (17-59) U/L Total Protein (6.3-8.2) g/dL Albumin (3.5-5.0) g/dL 01/16/24 01/16/24 Range/Units 07:27 07:27 RBC 4.27 L (4.30-5.90) m/uL Hgb 10.5 L (13.0-17.5) gm/dL Hct 34.8 L (39.0-53.0) % MCH 24.6 L (25.0-35.0) pg MCHC 30.2 L (31.0-37.0) g/dL RDW 18.7 H (11.5-15.5) % Lymphocytes # 0.4 L (1.0-4.8) k/uL Potassium 3.2 L (3.5-5.1) mmol/L Carbon Dioxide 18 L (22-30) mmol/L BUN 7 L (9-20) mg/dL Creatinine 0.57 L (0.66-1.25) mg/dL Glucose 141 H (74-99) mg/dL POC Glucose (mg/dL) (70-110) mg/dL AST 15 L (17-59) U/L Total Protein 5.3 L (6.3-8.2) g/dL Albumin 2.8 L (3.5-5.0) g/dL Assessment and Plan Assessment: Impression: Acute congestive heart failure with preserved ejection fraction New onset atrial fibrillation likely contributing to his congestive heart failure Acute hypoxic respiratory failure secondary to above Small bilateral pleural effusions secondary to CHF not large enough to consider safe thoracentesis Chronic lower extremities lymphedema with skin changes Questionable underlying COPD Dyslipidemia History of underlying coronary artery disease Morbid obesity History of obstructive sleep apnea syndrome History of hypothyroidism Type 2 diabetes Acute hyperthyroidism Recommendation: Continue present course of treatment/diuretics and Entresto. Patient is on Bumex 1 mg twice daily he is also on Aldactone. Patient was placed on Tapazole for hyperthyroidism based on his thyroid profile. Will give the patient an extra dose of Lasix today, 60 mg IV push was ordered May have to consider repeating ultrasound of the chest, his previous ultrasound was suboptimal and if there is truly good sized pleural effusion patient may benefit from thoracentesis. In the meantime I am mostly recommending diuretics. And hopefully better control of his atrial fibrillation/RVR Continue present medications as listed Continue Entresto Will continue to follow Time with Patient: Less than 30
[2024-01-16 11:53] LABS: Glucose,Whole Blood 149 mg/dL (70-110)
[2024-01-16] MEDS: FUROSEMIDE 10 MG/ML 10 ML VIAL IV STA (12:00)
[2024-01-16] MEDS: methIMAzole 5 MG TAB PO SCH (12:00)
--- NOTE | 2024-01-16 12:01 | XR ---
EXAM: XR chest 1V portable CLINICAL INDICATION:Male, 73 years old with history of Dyspnea; [facility] COMPARISON: 01/13/2024 and before TECHNIQUE: Chest single view. FINDINGS: Lines/tubes/devices: EKG leads overlie the chest. No indwelling lines are seen. Cardiomediastinum: Cardiac silhouette appears stable, mildly to moderately enlarged. Stable mediastinal silhouette. Prominence along the right upper paratracheal stripe again seen likely related to the thyroid abnormality. Vasculature: No increased pulmonary vasculature. Lungs/pleura: Slightly greater pleural/parenchymal opacity in the right lung base likely moderate sized pleural eff usion with adjacent atelectasis. Superimposed infection should be excluded clinically. Left lung and pleural space remain relatively clear. No visualized pneumothorax. Bones/soft tissues: Bony thorax appears grossly intact as seen. Regional soft tissues appear unremarkable. IMPRESSION: Slightly greater pleural/parenchymal opacity in the right lung base likely moderate sized pleural eff usion with adjacent atelectasis.
--- NOTE | 2024-01-16 12:11 | US ---
EXAMINATION TYPE: US abdomen complete DATE OF EXAM: 01/16/2024 COMPARISON: Renal US 2013 CLINICAL INDICATION: Male, 73 years old with history of Abdominal pain; Pain left side x 3 days. Hx k idney stones. TECHNIQUE: Multiple sonographic images of the abdomen are obtained. FINDINGS: EXAM MEASUREMENTS: Liver Length: 19.1 cm Gallbladder Wall: 0.42 cm CBD: Obscured Spleen: 12.9 cm Right Kidney: 12.4 x 5.8 x 5.2 cm Left Kidney: 12.5 x 5.4 x 5.6 cm SUPERVISOR ENROBING NOTES: *Exam is very limited due to patient body habitus and gas. Pancreas: Obscured Liver: Limited measurement, but appears enlarged. Increased attenuation. Gallbladder: *Measures 10.6 cm in length. Wall appears thickened. *Hyperechoic focus with posterior shadowing seen within: 1.3 x 1.3 x 0.8 cm. Evidence for sonographic Lehman's sign: No CBD: Obscured Spleen: *Isoechoic area seen adjacent to the spleen: 2.1 x 1.5 x 1.8 cm, likely splenule. Right Kidney: No hydronephrosis or masses seen Left Kidney: *Vague complex area seen lower pole: 2.2 x 1.6 x 1.6 cm. Upper IVC: wnl Abd Aorta: Obscured Appearance of right pleural effusion. IMPRESSION: 1. Limited exam. The CBD, pancreas, abdominal aorta are obscured. 2. Cholelithiasis, with mildly elongated gallbladder and mild nonspecific wall thickening. Correlate for possible developing cholecystitis. 3. Vague complex 2.2 cm area suggested in the left kidney, of uncertain etiology. Outpatient renal C T or MRI could be obtained to help exclude mass. 4. Mildly prominent liver with mildly increased echogenicity, could represent steatosis. 5. Right pleural effusion.
[2024-01-16 12:20] LABS: ABG Base Excess -5.4 mmol/L; ABG HCO3 20 mmol/L (21-25); ABG Oxygen Saturation 95.2 % (94-97); ABG PCO2 35 mmHg (35-45); ABG PH 7.36 (7.35-7.45); ABG PO2 78 mmHg (83-108); ABG TCO2 21 mmol/L (19-24); Allen Test Performed? Yes
--- NOTE | 2024-01-16 12:39 | US ---
EXAMINATION TYPE: US thyroid st tissue head/neck DATE OF EXAM: 01/16/2024 COMPARISON: CT chest 01/12/2024 CLINICAL INDICATION: Male, 73 years old with history of hyperthyroid; Hyperthyroid. Patient states he has had thyroid surgery-half of thyroid gland removed. GLAND SIZE: Right Lobe: 7.3 x 5.6 x 3.9 cm. Enlarged. Overall Parenchyma: heterogeneous. Left Lobe: Not visualized, probable entire lobe removed Isthmus Thickness: Not visualized NODULES RIGHT: # of nodules measured on right: 2 1. 2.2 X 1.8 x 2 cm, upper lateral, solid or almost completely solid, hypoechoic nodule, which is t aller than wide, with smooth margins, with echogenic foci. Total points 8, TI-RADS level 5. Prior size: No prior 2. 5.3 X 5.3 x 4 cm, mid mid, solid or almost completely solid, isoechoic nodule, which is wider th an tall, with smooth margins, without echogenic foci. Total points 3, TI-RADS level 3. Prior size: No prior LEFT: # of nodules measured on left: 0 ISTHMUS: # of nodules measured in the isthmus: 0 Bilateral neck scanned, no evidence of lymphadenopathy. IMPRESSION: 1. Nonvisualization of the left thyroid lobe and isthmus, could be surgically absent. 2. Enlarged right thyroid lobe, with 2 sizable nodules described above. 3. Recommend FNA biopsy of the more superior, 2.2 cm right thyroid nodule, considered highly suspici ous. 4. The more inferior 5.3 cm right thyroid nodule is considered mildly suspicious, but FNA should be considered based on its size. At a minimum, follow recommended at 1, 3, and 5 years. 2017 ACR TI-RADS LEVEL: TI-RADS 5 - Highly Suspicious: Follow if > 0.5 cm, FNA if > 1 cm *Highest TI-RADS level nodule reported
[2024-01-16] MEDS ORDERED: Potassium Replacement Protocol 1 EACH MISC MISCELLANE PRN (15:09)
[2024-01-16] MEDS: POTASSIUM CHLORIDE ER 20 MEQ TAB.ER PO SCH (15:23)
--- NOTE | 2024-01-16 15:31 | P.PN ---
Subjective Progress Note Date: 01/16/24 Principal diagnosis: Reason for follow-up is bilateral lower extremity lymphedema and cellulitis Patient is a 73-year-old male with a past medical history significant for diabetes mellitus hypertension hyperlipidemia prostate disorder COPD and did have bilateral lower extremity lymphedema and venous stasis dermatitis patient was brought into the hospital for evaluation of debility patient was also noticed to have some increasing swelling redness and drainage concerning for cellulitis. On today's evaluation that is 01/16/2024, the patient continues to be afebrile, the patient is on room air and breathing comfortably, the Pt denies having any chest pain or any worsening cough, the patient denies having any abdominal pain no vomiting or any diarrhea denies pain to lower extremity. Patient white count 7.9, creatinine 0.57 Objective - Vital Signs Vital signs: Vital Signs Temp 97.5 F L 01/16/24 11:53 Pulse 129 H 01/16/24 15:18 Resp 16 01/16/24 15:18 BP 92/52 01/16/24 15:18 Pulse Ox 95 01/16/24 15:18 FiO2 Intake & Output 01/15/24 01/16/24 01/16/24 18:59 06:59 18:59 Intake Total 480 Output Total 2049 1600 750 Balance -1570 -1600 -750 Weight 120 kg Intake: Oral 480 Output: Urine 2049 1599 750 Other: Voiding Method External Catheter External Catheter External Catheter # Voids 1 - Exam GENERAL DESCRIPTION: An elderly male lying in bed in no distress RESPIRATORY SYSTEM: Unlabored breathing , decreased breath sounds at bases HEART: S1 S2 regular rate and rhythm , ABDOMEN: Soft , no tenderness EXTREMITIES: Bilateral extremity few swelling lymphedema redness no drainage or - Labs CBC & Chem 7: 01/16/24 07:27 01/16/24 07:27 Labs: Abnormal Lab Results - Last 24 Hours (Table) 01/15/24 01/15/24 01/16/24 Range/Units 16:36 20:34 06:19 RBC (4.30-5.90) m/uL Hgb (13.0-17.5) gm/dL Hct (39.0-53.0) % MCH (25.0-35.0) pg MCHC (31.0-37.0) g/dL RDW (11.5-15.5) % Lymphocytes # (1.0-4.8) k/uL ABG pO2 (83-108) mmHg ABG HCO3 (21-25) mmol/L Potassium (3.5-5.1) mmol/L Carbon Dioxide (22-30) mmol/L BUN (9-20) mg/dL Creatinine (0.66-1.25) mg/dL Glucose (74-99) mg/dL POC Glucose (mg/dL) 143 H 150 H 141 H (70-110) mg/dL AST (17-59) U/L Total Protein (6.3-8.2) g/dL Albumin (3.5-5.0) g/dL 01/16/24 01/16/24 01/16/24 Range/Units 07:27 07:27 11:52 RBC 4.27 L (4.30-5.90) m/uL Hgb 10.5 L (13.0-17.5) gm/dL Hct 34.8 L (39.0-53.0) % MCH 24.6 L (25.0-35.0) pg MCHC 30.2 L (31.0-37.0) g/dL RDW 18.7 H (11.5-15.5) % Lymphocytes # 0.4 L (1.0-4.8) k/uL ABG pO2 (83-108) mmHg ABG HCO3 (21-25) mmol/L Potassium 3.2 L (3.5-5.1) mmol/L Carbon Dioxide 18 L (22-30) mmol/L BUN 7 L (9-20) mg/dL Creatinine 0.57 L (0.66-1.25) mg/dL Glucose 141 H (74-99) mg/dL POC Glucose (mg/dL) 149 H (70-110) mg/dL AST 15 L (17-59) U/L Total Protein 5.3 L (6.3-8.2) g/dL Albumin 2.8 L (3.5-5.0) g/dL 01/16/24 Range/Units 12:15 RBC (4.30-5.90) m/uL Hgb (13.0-17.5) gm/dL Hct (39.0-53.0) % MCH (25.0-35.0) pg MCHC (31.0-37.0) g/dL RDW (11.5-15.5) % Lymphocytes # (1.0-4.8) k/uL ABG pO2 78 L (83-108) mmHg ABG HCO3 20 L (21-25) mmol/L Potassium (3.5-5.1) mmol/L Carbon Dioxide (22-30) mmol/L BUN (9-20) mg/dL Creatinine (0.66-1.25) mg/dL Glucose (74-99) mg/dL POC Glucose (mg/dL) (70-110) mg/dL AST (17-59) U/L Total Protein (6.3-8.2) g/dL Albumin (3.5-5.0) g/dL Assessment and Plan (1) Swelling of both lower extremities Current Visit: Yes Status: Acute Code(s): M79.89 - OTHER SPECIFIED SOFT TISSUE DISORDERS SNOMED Code(s): 800825878 (2) Bilateral lower leg cellulitis Current Visit: Yes Status: Acute Code(s): L03.116 - CELLULITIS OF LEFT LOWER LIMB; L03.115 - CELLULITIS OF RIGHT LOWER LIMB SNOMED Code(s): 510222663 (3) Penicillin allergy Current Visit: Yes Status: Acute Code(s): Z88.0 - ALLERGY STATUS TO PENICI LLIN SNOMED Code(s): 74893365 Plan: 1patient with a chronic swelling to bilateral lower extremity likely venous stasis dermatitis did have some erythema concerning for secondary cellulitis likely from gram-positive skin karan 2-penicillin allergy that will limit the number of antibiotics safe to use with no history of anaphylaxis 3-patient to continue with dry Aquacel silver dressing to the open area lower extremity followed by Layton wrap from just above the toe to below the knee change daily we will leave on the wound tomorrow 4patient did have some clinical improvement is afebrile white count normal, 5patient to continue cefazolin while inpatient and transition to oral antibiotics on discharge. Dictation was produced using [id number] software. please excuse any grammatical, word or spelling errors. Time with Patient: Less than 30
[2024-01-16 16:45] LABS: Glucose,Whole Blood 150 mg/dL (70-110)
[2024-01-16 19:36] LABS: African American GFR (CKD) >90 (>60 ml/min/1.73 sqM); Anion Gap 21 mmol/L; Blood Urea Nitrogen 8 mg/dL (9-20); Calcium 8.9 mg/dL (8.4-10.2); Carbon Dioxide 15 mmol/L (22-30); Chloride 106 mmol/L (98-107); Glucose 150 mg/dL (74-99); Magnesium 1.5 mg/dL (1.6-2.3); Non-African American GFR(CKD) >90 (>60 ml/min/1.73 sqM); Sodium 142 mmol/L (137-145)
[2024-01-16 20:02] LABS: Glucose,Whole Blood 145 mg/dL (70-110)
[2024-01-16 20:59] VITALS: TEMP 98
[2024-01-16] MEDS ORDERED: DILTIAZEM ORAL 30 MG TAB PO SCH (23:00)
[2024-01-17] MEDS ORDERED: methIMAzole 5 MG TAB ONE (00:01)
[2024-01-17] MEDS ORDERED: INSULIN ASPART (NovoLOG) 100 UNIT/ML VIAL SQ ONE (00:01)
[2024-01-17 03:28] VITALS: PULSE 122; RESP 16
[2024-01-17 06:14] VITALS: BP 102/57
[2024-01-17 06:19] LABS: Glucose,Whole Blood 165 mg/dL (70-110)
[2024-01-17 11:34] LABS: Glucose,Whole Blood 174 mg/dL (70-110)
[2024-01-17] MEDS ORDERED: BENZOCAINE SPRAY 1 CAN ONE (13:00)
[2024-01-17] MEDS ORDERED: LACTATED RINGERS 1,000 ML BAG ONE ×2 (13:30→13:35)
[2024-01-17] MEDS ORDERED: LIDOCAINE 1% INJ 10MG/ML (20 ML MDV) ONE (13:35)
[2024-01-17] MEDS ORDERED: PROPOFOL 10 MG/ML 20 ML VIAL IV ONE (13:35)
[2024-01-17] MEDS ORDERED: PHENYLEPHRINE-0.9% NACL SYG 1,000 MCG/10 ML SYRINGE ONE (13:35)
[2024-01-17] MEDS ORDERED: ONDANSETRON 4 MG/2 ML VIAL ONE (14:05)
[2024-01-17] MEDS ORDERED: IPRATROPIUM-ALBUTEROL 3 ML NEB ONE (14:19)
[2024-01-17] MEDS ORDERED: DILTIAZEM ORAL 30 MG TAB ONE ×2 (15:57→23:39)
[2024-01-17] MEDS ORDERED: BUMETANIDE 1 MG TAB ONE (15:57)
[2024-01-17 16:36] LABS: Glucose,Whole Blood 193 mg/dL (70-110)
[2024-01-17] MEDS ORDERED: carvediloL 12.5 MG TAB ONE (17:14)
[2024-01-17 20:31] LABS: Glucose,Whole Blood 169 mg/dL (70-110)
[2024-01-17] MEDS ORDERED: TAMSULOSIN 0.4 MG CAP.ER.24H PO ONE (21:01)
[2024-01-17] MEDS ORDERED: SACUBITRIL/VALSARTAN 24 MG-26 MG TABLET PO ONE (21:01)
[2024-01-17] MEDS ORDERED: APIXABAN 5 MG TAB ONE (21:02)
[2024-01-18] MEDS ORDERED: SODIUM CHLORIDE 0.9% 50 ML BAG ONE (00:01)
[2024-01-18] MEDS ORDERED: INSULIN ASPART (NovoLOG) 100 UNIT/ML VIAL SQ ONE ×2 (00:01→17:55)
[2024-01-18] MEDS ORDERED: HEPARIN SOD,PORK IN 0.45% NACL PMX 25,000 UNIT/250 ML BAG IV ONE (00:01)
[2024-01-18] MEDS ORDERED: ceFAZolin 1,000 MG VIAL ONE (00:01)
[2024-01-18] MEDS ORDERED: methIMAzole 5 MG TAB ONE (00:01)
[2024-01-18 06:00] LABS: Glucose,Whole Blood 163 mg/dL (70-110)
[2024-01-18] MEDS ORDERED: carvediloL 12.5 MG TAB ONE ×2 (06:17→17:55)
[2024-01-18] MEDS ORDERED: PANTOPRAZOLE 40 MG TABLET PO ONE (06:17)
[2024-01-18] MEDS ORDERED: ATORVASTATIN 40 MG TAB ONE (09:13)
[2024-01-18] MEDS ORDERED: DAPAGLIFLOZIN PROPANEDIOL 10 MG TABLET ONE (09:13)
[2024-01-18] MEDS ORDERED: BUMETANIDE 1 MG TAB ONE ×2 (09:13→17:54)
[2024-01-18] MEDS ORDERED: SPIRONOLACTONE 25 MG TAB ONE (09:13)
[2024-01-18] MEDS ORDERED: TAMSULOSIN 0.4 MG CAP.ER.24H PO ONE ×2 (09:13→20:57)
[2024-01-18] MEDS ORDERED: APIXABAN 5 MG TAB ONE ×2 (09:14→20:58)
[2024-01-18] MEDS ORDERED: SACUBITRIL/VALSARTAN 24 MG-26 MG TABLET PO ONE ×2 (09:18→20:57)
[2024-01-18 11:48] LABS: Glucose,Whole Blood 142 mg/dL (70-110)
[2024-01-18] MEDS ORDERED: DILTIAZEM ORAL 30 MG TAB ONE ×2 (13:14→23:15)
[2024-01-18 16:35] LABS: Glucose,Whole Blood 174 mg/dL (70-110)
[2024-01-18 20:11] LABS: Glucose,Whole Blood 326 mg/dL (70-110)
[2024-01-18] MEDS ORDERED: Acetaminophen-Codeine 300-30mg TAB ONE (22:00)
[2024-01-19 05:51] LABS: Glucose,Whole Blood 200 mg/dL (70-110)
[2024-01-19] MEDS ORDERED: DILTIAZEM ORAL 30 MG TAB ONE ×2 (06:09→12:33)
[2024-01-19] MEDS ORDERED: PANTOPRAZOLE 40 MG TABLET PO ONE (06:09)
[2024-01-19] MEDS ORDERED: carvediloL 12.5 MG TAB ONE (06:10)
[2024-01-19] MEDS ORDERED: Acetaminophen-Codeine 300-30mg TAB ONE ×2 (06:18→09:09)
[2024-01-19] MEDS ORDERED: SPIRONOLACTONE 25 MG TAB ONE (08:53)
[2024-01-19] MEDS ORDERED: BUMETANIDE 1 MG TAB ONE (08:53)
[2024-01-19] MEDS ORDERED: TAMSULOSIN 0.4 MG CAP.ER.24H PO ONE (08:54)
[2024-01-19] MEDS ORDERED: SACUBITRIL/VALSARTAN 24 MG-26 MG TABLET PO ONE (08:54)
[2024-01-19] MEDS ORDERED: DAPAGLIFLOZIN PROPANEDIOL 10 MG TABLET ONE (08:54)
[2024-01-19] MEDS ORDERED: ATORVASTATIN 40 MG TAB ONE (08:54)
[2024-01-19] MEDS ORDERED: APIXABAN 5 MG TAB ONE (08:55)
[2024-01-19 11:26] LABS: Glucose,Whole Blood 179 mg/dL (70-110)
[2024-01-19] MEDS ORDERED: INSULIN ASPART (NovoLOG) 100 UNIT/ML VIAL SQ ONE (12:34)
[2024-02-09 13:38] LABS: Glucose 174 mg/dL (74-99)
[2024-02-09 13:39] LABS: ALT 7 U/L (4-49); AST 18 U/L (17-59); African American GFR (CKD) >90 (>60 ml/min/1.73 sqM); Albumin 2.8 g/dL (3.5-5.0); Alkaline Phosphatase 83 U/L (38-126); Anion Gap 24 mmol/L; Blood Urea Nitrogen 11 mg/dL (9-20); Carbon Dioxide 12 mmol/L (22-30); Chloride 107 mmol/L (98-107); Non-African American GFR(CKD) >90 (>60 ml/min/1.73 sqM); Potassium 3.5 mmol/L (3.5-5.1); Sodium 143 mmol/L (137-145); Total Bilirubin 0.8 mg/dL (0.2-1.3); Total Protein 5.1 g/dL (6.3-8.2)
[2024-02-09 13:40] LABS: HCT 34.9 % (39.0-53.0); HGB 10.3 gm/dL (13.0-17.5); MCH 24.5 pg (25.0-35.0); MCHC 29.5 g/dL (31.0-37.0); MCV 83.3 fL (80.0-100.0); Platelet Count 269 k/uL (150-450); RBC 4.19 m/uL (4.30-5.90); WBC 6.3 k/uL (3.8-10.6)
[2024-02-09 13:41] LABS: Basophils % (A) 0 %; Eosinophils % (A) 0 %; Lymphocytes # (A) 0.4 k/uL (1.0-4.8); Lymphocytes % (A) 7 %; Monocytes # (A) 0.7 k/uL (0-1.0); Monocytes % (A) 11 %; Neutrophils % (A) 79 %
== END 2024-01-19 14:27 | DRG 291 ==
LOC: EC 10:43 → 3SCARD 13:48
PROVIDERS: ADMIT Internal Medicine; ATTEND Internal Medicine
DX: I11.0 Hypertensive heart disease with heart failure (principal); I50.33 Acute on chronic diastolic (congestive) heart failure; J96.01 Acute respiratory failure with hypoxia; L03.116 Cellulitis of left lower limb; L03.115 Cellulitis of right lower limb; I48.91 Unspecified atrial fibrillation; Z66 Do not resuscitate; R53.81 Other malaise; J44.9 Chronic obstructive pulmonary disease, unspecified; E78.5 Hyperlipidemia, unspecified; E66.01 Morbid (severe) obesity due to excess calories; Z68.37 Body mass index [BMI] 37.0-37.9, adult; I25.10 Atherosclerotic heart disease of native coronary artery without angina pectoris; E83.42 Hypomagnesemia; I87.8 Other specified disorders of veins; E89.0 Postprocedural hypothyroidism; N40.0 Benign prostatic hyperplasia without lower urinary tract symptoms; G47.33 Obstructive sleep apnea (adult) (pediatric); D64.9 Anemia, unspecified; Z79.899 Other long term (current) drug therapy; Z79.01 Long term (current) use of anticoagulants; Z79.84 Long term (current) use of oral hypoglycemic drugs; Z79.890 Hormone replacement therapy; Z88.0 Allergy status to penicillin; Z87.891 Personal history of nicotine dependence; Z79.4 Long term (current) use of insulin; Z91.048 Other nonmedicinal substance allergy status; Z82.49 Family history of ischemic heart disease and other diseases of the circulatory system
CPT/HCPCS: 36415; 36600; 71045; 71046; 71275; 76536; 76604; 76700; 80048; 80053; 80061; 81003; 82728; 82805; 83036; 83540; 83550; 83735; 83880; 84439; 84443; 84481; 84484; 85025; 85379; 85610; 85730; 92960; 93005; 93306; 93312; 93320; 93325; 94760; 96365; 96366; 96368; 96376; 99291

== ENCOUNTER → 2024-01-31 | Outpatient (CLI) | payer MEDICARE | END | disposition home or self-care (01) | LOC: LABPRL 06:05 | PROVIDERS: ATTEND Family Medicine | CPT/HCPCS: 83036 ==

== ENCOUNTER 2024-02-07 14:45 | Observation (INO) | payer MEDICARE ==
--- NOTE | 2024-02-07 15:38 | CT ---
EXAMINATION TYPE: CT brain wo con DATE OF EXAM: 02/07/2024 COMPARISON: None HISTORY: Difficulty speaking. CT DLP: 1110.4 mGycm Automated exposure control for dose reduction was used. FINDINGS: The ventricles, basal cisterns and sulci over convexities are mildly enlarged consistent with mild at rophy but appropriate for the patient's age. There is no mass effect or shift of midline structures. No abnormal density is seen throughout the brain parenchyma and there is no acute intra or extra-axia l hemorrhage. The posterior fossa including the brainstem, fourth ventricle and cerebellar pontine angles are gross ly normal. Intraorbital contents appear normal symmetric. There are moderate chronic inflammatory changes in the left maxillary sinus and ethmoid air cells. Th e mastoid air cells are poorly aerated on the right. IMPRESSION: 1. No acute bleed or mass effect. 2. Mild age-appropriate atrophy. IMPRESSION:
[2024-02-07] MEDS: HYDROcodone/APAP 5-325MG 1 EACH TAB PO STA (15:43)
[2024-02-07 15:48] LABS: Anisocytosis Moderate; Basophils % (A) 1 %; Eosinophils # (A) 0.1 k/uL (0-0.7); Eosinophils % (A) 2 %; HCT 37.3 % (39.0-53.0); HGB 11.7 gm/dL (13.0-17.5); Hypochromasia Marked; Lymphocytes # (A) 0.8 k/uL (1.0-4.8); Lymphocytes % (A) 12 %; MCHC 31.5 g/dL (31.0-37.0); MCV 79.3 fL (80.0-100.0); Mean Platelet Volume 7.5; Microcytosis Slight; Monocytes # (A) 0.3 k/uL (0-1.0); Monocytes % (A) 5 %; Neutrophils # (A) 5.2 k/uL (1.3-7.7); Neutrophils % (A) 79 %; Platelet Count 368 k/uL (150-450); RDW 20.7 % (11.5-15.5); WBC 6.6 k/uL (3.8-10.6)
[2024-02-07 16:04] LABS: INR 1.4 (<1.2); Partial Thromboplastin Time 44.5 sec (22.0-30.0); Prothrombin Time 14.4 sec (10.0-12.5)
[2024-02-07 16:11] LABS: ALT 15 U/L (4-49); African American GFR (CKD) >90 (>60 ml/min/1.73 sqM); Anion Gap 3 mmol/L; Blood Urea Nitrogen 19 mg/dL (9-20); Calcium 8.5 mg/dL (8.4-10.2); Carbon Dioxide 30 mmol/L (22-30); Chloride 101 mmol/L (98-107); Glucose 142 mg/dL (74-99); Non-African American GFR(CKD) >90 (>60 ml/min/1.73 sqM); Sodium 134 mmol/L (137-145); Total Bilirubin 1.4 mg/dL (0.2-1.3)
[2024-02-07 16:22] LABS: Potassium 4.4 mmol/L (3.5-5.1)
[2024-02-07 16:23] LABS: AST 30 U/L (17-59); Alkaline Phosphatase 109 U/L (38-126); Magnesium 1.5 mg/dL (1.6-2.3); Total Protein 5.5 g/dL (6.3-8.2)
[2024-02-07 16:24] LABS: Albumin 2.4 g/dL (3.5-5.0)
--- NOTE | 2024-02-07 16:25 | XR ---
EXAMINATION TYPE: XR chest 1V portable DATE OF EXAM: 02/07/2024 COMPARISON: 01/16/2024 HISTORY: Altered mental status TECHNIQUE: Single frontal view of the chest is obtained. FINDINGS: There is no focal air space opacity, pleural effusion, or pneumothorax seen. The cardiac silhouette size is within normal limits. The osseous structures are intact. IMPRESSION: 1. No acute cardiopulmonary disease. 2. Right pleural effusion seen on the prior study has resolved in the interval.
--- NOTE | 2024-02-07 16:28 | ED ---
General Adult HPI - General Chief complaint: Neuro Symptoms/Deficit Stated complaint: Neuro Symtoms Time Seen by Provider: 02/07/24 14:57 Source: patient, family, EMS, RN notes reviewed, old records reviewed Mode of arrival: EMS Limitations: no limitations - History of Present Illness Initial comments: 73-year-old male presented from the half-way with an episode of confusion and expressive aphasia. Since he is accompanied by his son who was able to give detailed history. Patient is currently undergoing rehabilitation at the half-way. He was on the phone with his when he was confused and had expressive aphasia. This is resolved at the time of arrival. Patient is on Eliquis. History of atrial fibrillation. He has recent admission with ablation for atrial fibrillation and his son states that he was in sinus rhythm at the time of discharge. No chest. No abdominal pain. No headache. No limb weakness or numbness. Returned to normal - Related Data Home Medications Medication Instructions Recorded Confirmed Tamsulosin [Flomax] 0.4 mg PO BID@0900,2100 11/17/17 02/07/24 carvediloL [Coreg] 25 mg PO BID@0800,1700 11/05/20 02/07/24 Acetaminophen-Codeine 300-30mg 1 tab PO Q6H PRN 01/12/24 02/07/24 [Tylenol w/codeine #3] Albuterol Nebulized [Ventolin 2.5 mg INHALATION 02/07/24 02/07/24 Nebulized] RT-QID@00,06,,18 Apixaban [Eliquis] 5 mg PO BID@0800,1700 02/07/24 02/07/24 Atorvastatin [Lipitor] 40 mg PO HS@2100 02/07/24 02/07/24 Bumetanide [Bumex] 1 mg PO BID@0600,1400 02/07/24 02/07/24 Collagenase [Santyl Ointment] 1 applic TOPICAL DAILY 02/07/24 02/07/24 Dapagliflozin Propanediol [Farxiga] 10 mg PO DAILY@0800 02/07/24 02/07/24 Hydrocortisone [Cortizone-10] 1 applic TOPICAL Q24H PRN 02/07/24 02/07/24 INSULIN ASPART (NovoLOG) [NovoLOG See Protocol SQ AC-TID@07,11,1630 02/07/24 02/07/24 (formulary)] Insulin Glargine [Lantus Vial] 50 unit SQ HS@2130 02/07/24 02/07/24 Liquacel 30 ml PO BID@0800,1700 02/07/24 02/07/24 Loperamide HCl [Imodium A-D] 2 - 4 mg PO QID PRN MDD 8mg 02/07/24 02/07/24 Magnesium Hydroxide [Milk of 7,200 mg PO DAILY PRN 02/07/24 02/07/24 Magnesia Concentrate] Magnesium Oxide [Mag-Ox] 400 mg PO BID@0800,1700 02/07/24 02/07/24 Melatonin 5 mg PO HS@2100 02/07/24 02/07/24 Na Phos,M-B/Na Phos,Di-Ba [Fleet 133 ml RECTAL DAILY PRN 02/07/24 02/07/24 Adult] Pantoprazole [Protonix] 40 mg PO DAILY@0600 02/07/24 02/07/24 Sacubitril/Valsartan [Entresto 24 2 tab PO BID@0900,2100 02/07/24 02/07/24 mg-26 mg Tablet] Spironolactone [Aldactone] 25 mg PO DAILY@0800 02/07/24 02/07/24 Tums 750mg Chewable 750 mg PO Q8H PRN 02/07/24 02/07/24 bisacodyL [Dulcolax] 10 mg RECTAL DAILY PRN 02/07/24 02/07/24 dilTIAZem HCL 30 mg PO QID@00,06,12,18 02/07/24 02/07/24 guaiFENesin [guaiFENesin Oral 200 mg PO Q4H PRN 02/07/24 02/07/24 Solution] methIMAzole [Tapazole] 5 mg PO DAILY@0800 02/07/24 02/07/24 Allergies Allergy/AdvReac Type Severity Reaction Status Date / Time adhesive Allergy BLISTERING Verified 02/07/24 15:20 RASH amoxicillin Allergy Rash/Hives Verified 02/07/24 15:20 Penicillins Allergy Rash/Hives Verified 02/07/24 15:20 pollen extracts Allergy RHINITIS, Verified 02/07/24 15:20 SORE THROAT Review of Systems ROS Statement: Those systems with pertinent positive or pertinent negative responses have been documented in the HPI. ROS Other: All systems not noted in ROS Statement are negative. Past Medical History Past Medical History: COPD, Diabetes Mellitus, Eye Disorder, Hyperlipidemia, Hypertension, Prostate Disorder, Sleep Apnea/CPAP/BIPAP, Thyroid Disorder Additional Past Medical History / Comment(s): HX PVC'S. MILD COPD. ANEMIA. HX KIDNEY STONES. BPH. HAD DIABETIC RETINOPATHY TX ON EYES. HAS HAD PICC LINE IN PAST, NOW OUT. CHRONIC BACK AND KNEE PAIN History of Any Multi-Drug Resistant Organisms: None Reported Past Surgical History: Orthopedic Surgery Additional Past Surgical History / Comment(s): RT THYROIDECTOMY. MASS FROM BACK, FATTY TUMOR. NASAL MASS REMOVED. LASER EYES, INTRAOCULAR LENS. WOUND ON RT FOOT I&D. LEFT KNEE ARTHROSCOPY, CYST REMOVED FROM TAILBONE Past Anesthesia/Blood Transfusion Reactions: Previous Problems w/ Anesthesia Additional Past Anesthesia/Blood Transfusion Reaction / Comment(s): OCC TAKES LONG TIME TO AWAKEN. Past Psychological History: No Psychological Hx Reported Smoking Status: Former smoker Past Alcohol Use History: None Reported Past Drug Use History: None Reported - Past Family History Mother Family Medical History: COPD Father Family Medical History: Diabetes Mellitus Additional Family Medical History / Comment(s): heart failure General Exam Limitations: no limitations General appearance: alert, in no apparent distress Head exam: Present: atraumatic, normocephalic Eye exam: Present: normal appearance, PERRL ENT exam: Present: normal exam Neck exam: Present: normal inspection Respiratory exam: Present: normal lung sounds bilaterally. Absent: respiratory distress, wheezes Cardiovascular Exam: Present: regular rate, irregular rhythm GI/Abdominal exam: Present: soft. Absent: distended, tenderness, guarding Extremities exam: Present: pedal edema Neurological exam: Present: alert, oriented X3, CN II-XII intact. Absent: motor sensory deficit Skin exam: Present: warm, dry, intact, pallor. Absent: cyanosis Course Vital Signs 02/07/24 02/07/24 02/07/24 14:50 17:18 18:03 Temperature 98.1 F Pulse Rate 73 70 83 Respiratory 18 18 18 Rate Blood Pressure 94/65 87/65 94/58 O2 Sat by Pulse 99 98 100 Oximetry Medical Decision Making - Medical Decision Making Was pt. sent in by a medical professional or institution (RAYMUNDO Nam, VARSITY BASEBALL COACH, urgent care, hospital, or half-way...) When possible be specific @ -No Did you speak to anyone other than the patient for history (EMS, parent, family, police, friend...)? What history was obtained from this source @ -No Did you review nursing and triage notes (agree or disagree)? Why? @ -I reviewed and agree with nursing and triage notes Were old charts reviewed (outside hosp., previous admission, EMS record, old EKG, old radiological studies, urgent care reports/EKG's, half-way records)? Report findings @ -No old charts were reviewed Differential CVA Ischemic stroke, hemorrhagic stroke, brain tumor, atypical migraine, Wernicke's encephalopathy, seizure, multiple sclerosis, meningitis, encephalitis, hypoglycemia, Guillain-Mays, electrolytes disturbance, myasthenia gravis.... This is not meant to be an all-inclusive list EKG interpreted by me (3pts min.). @Atrial fibrillation with a rate of 77, QRS duration 128, QTc [address] segment elevation. Right bundle branch block. X-rays interpreted by me (1pt min.). @ -None done CT interpreted by me (1pt min.). @ -CT brain negative for intracranial hemorrhage or mass effect U/S interpreted by me (1pt. min.). @ -None done What testing was considered but not performed or refused? (CT, X-rays, U/S, labs)? Why? @ -None What meds were considered but not given or refused? Why? @ -None Did you discuss the management of the patient with other professionals (professionals i.e. RAYMUNDO Nam, VARSITY BASEBALL COACH, lab, RT, psych nurse, social service technician, skimmer reverberatory, teacher, chief customer officer, keycase assembler)? Give summary @ -No Was smoking cessation discussed for >3mins.? @ -No Was critical care preformed (if so, how long)? @ -No Were there social determinants of health that impacted care today? How? (Homelessness, low income, unemployed, alcoholism, drug addiction, transportation, low edu. Level, literacy, decrease access to med. care, shelter, rehab)? @ -No Was there de-escalation of care discussed even if they declined (Discuss DNR or withdrawal of care, Hospice)? DNR status @ -No What co-morbidities impacted this encounter? (DM, HTN, Smoking, COPD, CAD, Cancer, CVA, ARF, Chemo, Hep., AIDS, mental health diagnosis, sleep apnea, morbid obesity)? @ -Atrial fibrillation Was patient admitted / discharged? Hospital course, mention meds given and r oute, prescriptions, significant lab abnormalities, going to OR and other pertinent info. @ -[73-year-old male presenting for evaluation of word finding difficulty, expressive aphasia and confusion which was resolved prior to arrival. Patient does have history of atrial fibrillation and he is on Eliquis. He has recent admission with subsequent rehabilitation. Patient denies any new complaint at the time my evaluation. He has a normal white blood cell count, stable and improved mild anemia. Normal electrolytes. Negative urinalysis. Patient's albumin is 2.4 which is low. Patient remains asymptomatic while in the emergency department. He will be admitted to his primary care doctor Dr. Garber who is aware. Cardiology and neurology placed on consult Undiagnosed new problem with uncertain prognosis? @ -No Drug Therapy requiring intensive monitoring for toxicity (Heparin, Nitro, In sulin, Cardizem)? @ -No Were any procedures done? @ -No Diagnosis/symptom? @ -[TIA Acute, or Chronic, or Acute on Chronic? @ -acute Uncomplicated (without systemic symptoms) or Complicated (systemic symptoms)? @ -Default Side effects of treatment? @ -No Exacerbation, Progression, or Severe Exacerbation? @ -No Poses a threat to life or bodily function? How? (Chest pain, [place], [place], pneumonia, PE, COPD, DKA, ARF, appy, cholecystitis, CVA, Diverticulitis, Homicidal, Suicidal, threat to staff... and all critical care pts) @ -[yes, CVA - Lab Data Result diagrams: 02/07/24 15:26 02/07/24 15: Lab Results 02/07/24 02/07/24 02/07/24 Range/Units 15: 15: 15: WBC 6.6 (3.8-10.6) k/uL RBC 4.70 (4.30-5.90) m/uL Hgb 11.7 L (13.0-17.5) gm/dL Hct 37.3 L (39.0-53.0) % MCV 79.3 L (80.0-100.0) fL MCH 25.0 (25.0-35.0) pg MCHC 31.5 (31.0-37.0) g/dL RDW 20.7 H (11.5-15.5) % Plt Count 368 (150-450) k/uL MPV 7.5 Neutrophils % 79 % Lymphocytes % 12 % Monocytes % 5 % Eosinophils % 2 % Basophils % 1 % Neutrophils # 5.2 (1.3-7.7) k/uL Lymphocytes # 0.8 L (1.0-4.8) k/uL Monocytes # 0.3 (0-1.0) k/uL Eosinophils # 0.1 (0-0.7) k/uL Basophils # 0.0 (0-0.2) k/uL Hypochromasia Marked Anisocytosis Moderate Microcytosis Slight PT 14.4 H (10.0-12.5) sec INR 1.4 H (<1.2) APTT 44.5 H (22.0-30.0) sec Sodium (137-145) mmol/L Potassium (3.5-5.1) mmol/L Chloride (98-107) mmol/L Carbon Dioxide (22-30) mmol/L Anion Gap mmol/L BUN (9-20) mg/dL Creatinine (0.66-1.25) mg/dL Est GFR (CKD-EPI)AfAm (>60 ml/min/1.73 sqM) Est GFR (CKD-EPI)NonAf (>60 ml/min/1.73 sqM) Glucose (74-99) mg/dL Calcium (8.4-10.2) mg/dL Magnesium (1.6-2.3) mg/dL Total Bilirubin (0.2-1.3) mg/dL AST (17-59) U/L ALT (4-49) U/L Alkaline Phosphatase (38-126) U/L Total Protein (6.3-8.2) g/dL Albumin (3.5-5.0) g/dL TSH (0.465-4.680) mIU/L Urine Color Yellow Urine Appearance Clear (Clear) Urine pH 7.0 (5.0-8.0) Ur Specific [place] 1.015 (1.001-1.035) Urine Protein Negative (Negative) Urine Glucose (UA) 4+ H (Negative) Urine Ketones Negative (Negative) Urine Blood Negative (Negative) Urine Nitrite Negative (Negative) Urine Bilirubin Negative (Negative) Urine Urobilinogen <2.0 (<2.0) mg/dL Ur Leukocyte Esterase Negative (Negative) 02/07/24 Range/Units 15:26 WBC (3.8-10.6) k/uL RBC (4.30-5.90) m/uL Hgb (13.0-17.5) gm/dL Hct (39.0-53.0) % MCV (80.0-100.0) fL MCH (25.0-35.0) pg MCHC (31.0-37.0) g/dL RDW (11.5-15.5) % Plt Count (150-450) k/uL MPV Neutrophils % % Lymphocytes % % Monocytes % % Eosinophils % % Basophils % % Neutrophils # (1.3-7.7) k/uL Lymphocytes # (1.0-4.8) k/uL Monocytes # (0-1.0) k/uL Eosinophils # (0-0.7) k/uL Basophils # (0-0.2) k/uL Hypochromasia Anisocytosis Microcytosis PT (10.0-12.5) sec INR (<1.2) APTT (22.0-30.0) sec Sodium 134 L (137-145) mmol/L Potassium 4.4 (3.5-5.1) mmol/L Chloride 101 (98-107) mmol/L Carbon Dioxide 30 (22-30) mmol/L Anion Gap 3 mmol/L BUN 19 (9-20) mg/dL Creatinine 0.66 (0.66-1.25) mg/dL Est GFR (CKD-EPI)AfAm >90 (>60 ml/min/1.73 sqM) Est GFR (CKD-EPI)NonAf >90 (>60 ml/min/1.73 sqM) Glucose 142 H (74-99) mg/dL Calcium 8.5 (8.4-10.2) mg/dL Magnesium 1.5 L (1.6-2.3) mg/dL Total Bilirubin 1.4 H (0.2-1.3) mg/dL AST 30 (17-59) U/L ALT 15 (4-49) U/L Alkaline Phosphatase 109 (38-126) U/L Total Protein 5.5 L (6.3-8.2) g/dL Albumin 2.4 L (3.5-5.0) g/dL TSH 0.758 (0.465-4.680) mIU/L Urine Color Urine Appearance (Clear) Urine pH (5.0-8.0) Ur Specific [place] (1.001-1.035) Urine Protein (Negative) Urine Glucose (UA) (Negative) Urine Ketones (Negative) Urine Blood (Negative) Urine Nitrite (Negative) Urine Bilirubin (Negative) Urine Urobilinogen (<2.0) mg/dL Ur Leukocyte Esterase (Negative) Disposition Clinical Impression: Transient cerebral ischemia Disposition: ADMITTED IP TO THIS HOSP Condition: Stable Is patient prescribed a controlled substance at d/c from ED?: No Referrals: Aquilino Garber MD [Primary Care Provider] - 1-2 days Time of Disposition: 18:54
[2024-02-07 18:11] LABS: Appearance,Urine Clear (Clear); Bilirubin,Urine Negative (Negative); Blood,Urine Negative (Negative); Color,Urine Yellow; Glucose,Urine (UA) 4+ (Negative); Ketones,Urine Negative (Negative); Leukocyte Esterase,Urine Negative (Negative); Nitrite,Urine Negative (Negative); Protein,Urine Negative (Negative); Specific Gravity,Urine 1.015 (1.001-1.035); Urobilinogen,Urine <2.0 mg/dL (<2.0)
[2024-02-07] MEDS: ASPIRIN 325 MG TAB PO STA (19:54)
[2024-02-07] MEDS: SODIUM CHLORIDE 0.9% 1,000 ML IV SCH (23:58)
[2024-02-08] MEDS ORDERED: LOPERAMIDE 2 MG CAP PO PRN (08:52)
[2024-02-08] MEDS ORDERED: NA PHOS,M-B/NA PHOS,DI-BA 133 ML ENEMA RECTAL PRN (08:52)
[2024-02-08] MEDS ORDERED: MAGNESIUM HYDROXIDE 2,400 MG/30 ML CUP PO PRN (08:52)
[2024-02-08] MEDS ORDERED: CALCIUM CARBONATE 500 MG CHEWABLE PO PRN (08:52)
[2024-02-08] MEDS ORDERED: Acetaminophen-Codeine 300-30mg TAB PO PRN (08:53)
[2024-02-08] MEDS ORDERED: bisacodyL 10 MG SUPP RECTAL PRN (08:54)
[2024-02-08] MEDS ORDERED: DEXTROSE 50% SYRINGE 50 ML IVP PRN (08:55)
--- NOTE | 2024-02-08 09:46 | P.HPIM ---
History of Present Illness H&P Date: 02/08/24 Francisco Cao is a 73-year-old male patient who presented to the ER with concerns of expressive aphasia. Patient reports that he was at rehab facility and had just returned from PT and called his but was not able to get the words out which was concerning to the family. Patient reports symptoms only lasted a few minutes denies any other acute neurological symptoms. Patient has an extensive medical history including new onset A-fib in which she was cardioverted during recent hospitalization is maintained on Eliquis, COPD, diabetes mellitus, hyperlipidemia, prostate disorder, sleep apnea, thyroid disorder, chronic lower extremity lymphedema and morbid obesity. Head CT was completed in ER showing no acute bleed or mass effect. Mild age-appropriate atrophy. Chest x-ray completed showing no acute cardiopulmonary disease right pleural effusion seen on prior study has resolved. Lab work revealing UA negative. TSH 0.758, magnesium 1.5, creatinine 0.66 bun 19, white blood cell 6.6 and hemoglobin 11.7 at this time patient will be admitted cardiology and pulmonary services consulted Review of Systems Please refer to HPI otherwise unremarkable Past Medical History Past Medical History: COPD, Diabetes Mellitus, Eye Disorder, Hyperlipidemia, Hypertension, Prostate Disorder, Sleep Apnea/CPAP/BIPAP, Thyroid Disorder Additional Past Medical History / Comment(s): HX PVC'S. MILD COPD. ANEMIA. HX KIDNEY STONES. BPH. HAD DIABETIC RETINOPATHY TX ON EYES. HAS HAD PICC LINE IN PAST, NOW OUT. CHRONIC BACK AND KNEE PAIN History of Any Multi-Drug Resistant Organisms: None Reported Past Surgical History: Orthopedic Surgery Additional Past Surgical History / Comment(s): RT THYROIDECTOMY. MASS FROM BACK, FATTY TUMOR. NASAL MASS REMOVED. LASER EYES, INTRAOCULAR LENS. WOUND ON RT FOOT I&D. LEFT KNEE ARTHROSCOPY, CYST REMOVED FROM TAILBONE Past Anesthesia/Blood Transfusion Reactions: Previous Problems w/ Anesthesia Additional Past Anesthesia/Blood Transfusion Reaction / Comment(s): OCC TAKES LONG TIME TO AWAKEN. Past Psychological History: No Psychological Hx Reported Smoking Status: Former smoker Past Alcohol Use History: None Reported Past Drug Use History: None Reported - Past Family History Mother Family Medical History: COPD Father Family Medical History: Diabetes Mellitus Additional Family Medical History / Comment(s): heart failure Medications and Allergies Home Medications Medication Instructions Recorded Confirmed Type Tamsulosin [Flomax] 0.4 mg PO BID@0900,2100 06/06/18 08/26/24 History carvediloL [Coreg] 25 mg PO BID@0800,1700 11/05/20 02/07/24 History Acetaminophen-Codeine 300-30mg 1 tab PO Q6H PRN 01/12/24 02/07/24 History [Tylenol w/codeine #3] Albuterol Nebulized [Ventolin 2.5 mg INHALATION 02/07/24 02/07/24 History Nebulized] RT-QID@00,,, Apixaban [Eliquis] 5 mg PO BID@0800,1700 02/07/24 02/07/24 History Atorvastatin [Lipitor] 40 mg PO HS@209902/07/24 02/07/24 History Bumetanide [Bumex] 1 mg PO BID@0600,1400 02/07/24 02/07/24 History Collagenase [Santyl Ointment] 1 applic TOPICAL DAILY 02/07/24 02/07/24 History Dapagliflozin Propanediol [Farxiga] 10 mg PO DAILY@0802/07/24 02/07/24 History Hydrocortisone [Cortizone-10] 1 applic TOPICAL Q24H PRN 02/07/24 02/07/24 History INSULIN ASPART (NovoLOG) [NovoLOG See Protocol SQ AC-TID@07,11,1630 02/07/24 02/07/24 History (formulary)] Insulin Glargine [Lantus Vial] 50 unit SQ HS@212902/07/24 02/07/24 History Liquacel 30 ml PO BID@0800,17002/07/24 02/07/24 History Loperamide HCl [Imodium A-D] 2 - 4 mg PO QID PRN MDD 8mg 02/07/24 02/07/24 History Magnesium Hydroxide [Milk of 7,200 mg PO DAILY PRN 02/07/24 02/07/24 History Magnesia Concentrate] Magnesium Oxide [Mag-Ox] 400 mg PO BID@0800,1700 02/07/24 02/07/24 History Melatonin 5 mg PO HS@209902/07/24 02/07/24 History Na Phos,M-B/Na Phos,Di-Ba [Fleet 133 ml RECTAL DAILY PRN 02/07/24 02/07/24 History Adult] Pantoprazole [Protonix] 40 mg PO DAILY@0600 02/07/24 02/07/24 History Sacubitril/Valsartan [Entresto 24 2 tab PO BID@0900,2100 02/07/24 02/07/24 History mg-26 mg Tablet] Spironolactone [Aldactone] 25 mg PO DAILY@0800 02/07/24 02/07/24 History Tums 750mg Chewable 750 mg PO Q8H PRN 02/07/24 02/07/24 History bisacodyL [Dulcolax] 10 mg RECTAL DAILY PRN 02/07/24 02/07/24 History dilTIAZem HCL 30 mg PO QID@00,06,12,18 02/07/24 02/07/24 History guaiFENesin [guaiFENesin Oral 200 mg PO Q4H PRN 02/07/24 02/07/24 History Solution] methIMAzole [Tapazole] 5 mg PO DAILY@0800 02/07/24 02/07/24 History Allergies Allergy/AdvReac Type Severity Reaction Status Date / Time adhesive Allergy BLISTERING Verified 02/07/24 15:20 RASH amoxicillin Allergy Rash/Hives Verified 02/07/24 15:20 Penicillins Allergy Rash/Hives Verified 02/07/24 15:20 pollen extracts Allergy RHINITIS, Verified 02/07/24 15:20 SORE THROAT Physical Exam Vitals: Vital Signs Temp Pulse Resp BP Pulse Ox 02/08/24 07:36 98.1 F 89 18 99/65 98 02/08/24 05:54 98.0 F 88 15 106/80 97 02/08/24 04:00 72 14 101/59 98 02/08/24 03:00 80 15 93/73 97 02/08/24 02:00 83 15 100/59 98 02/08/24 01:17 72 15 105/61 100 02/08/24 00:00 79 16 96/54 100 02/07/24 23:15 93 14 93/57 99 02/07/24 23:11 76 14 89/50 98 02/07/24 23:00 71 14 83/58 99 02/07/24 22:00 80 14 103/57 100 02/07/24 21:00 93 14 106/60 98 02/07/24 20:00 97.6 F 95 15 118/94 98 02/07/24 19:57 73 17 97/55 99 02/07/24 18:03 83 18 94/58 100 02/07/24 17:18 70 18 87/65 98 02/07/24 14:50 98.1 F 73 18 94/65 99 Head normocephalic Neck supple Lungs clear to auscultation bilaterally no wheezing or crackles Heart regular rate and rhythm S1-S2, no rub or gallop Abdomen is soft nontender nondistended positive bowel sounds no hepatosplenomegaly Extremities no edema. Bilateral lower extremity erythema Neuro alert and orientated to 3 Results CBC & Chem 7: 02/07/24 15:26 02/07/24 15: Labs: Abnormal Lab Results - Last 24 Hours (Table) 02/07/24 02/07/24 02/07/24 Range/Units 15:26 15:26 15:26 Hgb 11.7 L (13.0-17.5) gm/dL Hct 37.3 L (39.0-53.0) % MCV 79.3 L (80.0-100.0) fL RDW 20.7 H (11.5-15.5) % Lymphocytes # 0.8 L (1.0-4.8) k/uL PT 14.4 H (10.0-12.5) sec INR 1.4 H (<1.2) APTT 44.5 H (22.0-30.0) sec Sodium (137-145) mmol/L Glucose (74-99) mg/dL Magnesium (1.6-2.3) mg/dL Total Bilirubin (0.2-1.3) mg/dL Total Protein (6.3-8.2) g/dL Albumin (3.5-5.0) g/dL Urine Glucose (UA) 4+ H (Negative) 02/07/24 Range/Units 15:26 Hgb (13.0-17.5) gm/dL Hct (39.0-53.0) % MCV (80.0-100.0) fL RDW (11.5-15.5) % Lymphocytes # (1.0-4.8) k/uL PT (10.0-12.5) sec INR (<1.2) APTT (22.0-30.0) sec Sodium 134 L (137-145) mmol/L Glucose 142 H (74-99) mg/dL Magnesium 1.5 L (1.6-2.3) mg/dL Total Bilirubin 1.4 H (0.2-1.3) mg/dL Total Protein 5.5 L (6.3-8.2) g/dL Albumin 2.4 L (3.5-5.0) g/dL Urine Glucose (UA) (Negative) Assessment and Plan Assessment: 1. Episode of expressive aphasia possible TIA 2. History of recent new onset atrial fibrillation with RVR status post cardioversion. Patient is maintained on Eliquis 3. History of chronic bilateral lower extremity lymphedema 4. History of COPD 5. History of CHF 6. History of morbid obesity 7. History of sleep apnea 8. History of hyperlipidemia 9. History of hypothyroidism 10. Diabetes mellitus type 2 DVT prophylaxis Eliquis. GI prophylaxis Protonix Cardiology and neurology services consulted Home meds reordered Repeat labs ordered Time with Patient: Greater than 30 (Greater than 60% of the total time spent in counseling and coordination of care)
[2024-02-08 09:54] LABS: Glucose,Whole Blood 145 mg/dL (70-110)
[2024-02-08] MEDS: SACUBITRIL/VALSARTAN 24 MG-26 MG TABLET PO SCH (10:43)
[2024-02-08] MEDS: METOPROLOL TARTRATE 50 MG TAB PO SCH (10:48)
[2024-02-08] MEDS: TAMSULOSIN 0.4 MG CAP.ER.24H PO SCH (10:48)
[2024-02-08] MEDS: MAGNESIUM SULFATE-D5W PMX 1 GM in DEXTROSE/WATER 1 100ML.BAG IVPB SCH (10:50)
[2024-02-08] MEDS: ALBUTEROL NEBULIZED 2.5 MG/3 ML INHALATION SCH ×2 (11:46→15:20)
[2024-02-08] MEDS ORDERED: DILTIAZEM ORAL 30 MG TAB PO SCH (12:00)
--- NOTE | 2024-02-08 12:35 | P.CRDCN ---
History of Present Illness History of present illness: HISTORY OF PRESENT ILLNESS: This is a 73-year-old male with a past medical history significant for atrial fibrillation, congestive heart failure, COPD, and hyperlipidemia. Patient states he is scheduled to see a container maker on Wednesday. We have been asked to see the patient in consultation for A-fib and TIA. Patient examined at the bedside in the ER. Patient was hospitalized at the beginning of the month and was found to have new onset atrial fibrillation. He was started on Eliquis at that time. Patient has been at [facility] for rehab. He states he finished PT yesterday and called his afterwards and was unable to find the words when speaking. He states all his symptoms have resolved. He denies chest pain or pressure. Denies SOB. Patient remains in atrial fibrillation with heart rate range between [id number] the time of examination DIAGNOSTICS: - EKG reveals atrial fibrillation with controlled ventricular rate. - Chest xray negative for acute process. - CT brain no acute bleed or mass effect. - Laboratory data: WBC 6.6. Hemoglobin 11.7. Platelet count 368. Sodium 134. Potassium 4.4. BUN 19. Creatinine 0.66. Magnesium 1.5. TSH 0.758. - Current home cardiac medications include Cardizem 30 mg 4 times a day, Entresto 24-26 mg 2 tablets twice a day, Eliquis 5 mg twice a day, carvedilol 25 mg twice a day, Bumex 1 mg twice a day, Farxiga 10 mg daily, Lipitor 40 mg at night, Aldactone 25 mg daily - Most recent echocardiogram obtained in January 2024 revealed ejection fraction 35 to 40%, severe pulmonary hypertension, mild to moderate tricuspid regurgitation - Cardiac catheterization history: Unknown REVIEW OF SYSTEMS: At the time of my exam: CONSTITUTIONAL: Denies fever or chills. HEENT: Denies blurred vision, vision changes, or eye pain. Denies hemoptysis CARDIOVASCULAR: Denies chest pain. Denies orthopnea. Denies PND. Denies palpitations RESPIRATORY: Denies shortness of breath. GASTROINTESTINAL: Denies abdominal pain. Denies nausea or vomiting. HEMATOLOGIC: Denies bleeding disorders. GENITOURINARY: Denies any blood in urine. SKIN: Denies pruitis. Denies rash. PHYSICAL EXAM: VITAL SIGNS: Reviewed. GENERAL: Well-developed in no acute distress. HEENT: Head is normocephalic. Pupils are equal, round. Sclerae anicteric. Mucous membranes of the mouth are moist. Neck supple. No JVD or thyromegaly LUNGS: Respirations even and unlabored. Lungs essentially clear to auscultation bilaterally. HEART: Tachycardic. Irregular rate and rhythm. S1 and S2 heard. ABDOMEN: Soft. Nondistended. Nontender. EXTREMITIES: Normal range of motion. No clubbing or cyanosis. Peripheral pulses intact. Minimal lower extremity edema NEUROLOGIC: Awake and alert. ASSESSMENT: Expressive aphasia, possible TIA Recently diagnosed atrial fibrillation, on Eliquis outpatient, currently AF RVR 140s Coronary artery calcifications, prior CT in December 2023 Cardiomyopathy, ejection fraction 35 to 40%, ischemic versus nonischemic, suspect tachycardia induced Chronic heart failure with reduced EF, currently euvolemic Hypertension Hyperlipidemia Diabetes COPD Chronic lymphedema Hypomagnesemia PLAN: No need to repeat echocardiogram as this was performed in January 2024 Discontinue Entresto as BP is low at 99/65 Discontinue Coreg Begin metoprolol 50mg BID for optimal heart rate control Discontinue oral Cardizem secondary to cardiomyopathy Continue anticoagulation with Eliquis Continue telemetry monitoring Replace magnesium Further recommendations pending patient course Nurse practitioner note has been reviewed by physician. Signing provider agrees with the documented findings, assessment, and plan of care documented by ASIAN STUDIES PROFESSOR as a scribe. Past Medical History Past Medical History: COPD, Diabetes Mellitus, Eye Disorder, Hyperlipidemia, Hypertension, Prostate Disorder, Sleep Apnea/CPAP/BIPAP, Thyroid Disorder Additional Past Medical History / Comment(s): HX PVC'S. MILD COPD. ANEMIA. HX KIDNEY STONES. BPH. HAD DIABETIC RETINOPATHY TX ON EYES. HAS HAD PICC LINE IN PAST, NOW OUT. CHRONIC BACK AND KNEE PAIN History of Any Multi-Drug Resistant Organisms: None Reported Past Surgical History: Orthopedic Surgery Additional Past Surgical History / Comment(s): RT THYROIDECTOMY. MASS FROM BACK, FATTY TUMOR. NASAL MASS REMOVED. LASER EYES, INTRAOCULAR LENS. WOUND ON RT FOOT I&D. LEFT KNEE ARTHROSCOPY, CYST REMOVED FROM TAILBONE Past Anesthesia/Blood Transfusion Reactions: Previous Problems w/ Anesthesia Additional Past Anesthesia/Blood Transfusion Reaction / Comment(s): OCC TAKES LONG TIME TO AWAKEN. Past Psychological History: No Psychological Hx Reported Smoking Status: Former smoker Past Alcohol Use History: None Reported Past Drug Use History: None Reported - Past Family History Mother Family Medical History: COPD Father Family Medical History: Diabetes Mellitus Additional Family Medical History / Comment(s): heart failure Medications and Allergies Home Medications Medication Instructions Recorded Confirmed Type Tamsulosin [Flomax] 0.4 mg PO BID@0900,2100 11/17/17 02/07/24 History carvediloL [Coreg] 25 mg PO BID@0800,1700 11/05/20 02/07/24 History Acetaminophen-Codeine 300-30mg 1 tab PO Q6H PRN 01/12/24 02/07/24 History [Tylenol w/codeine #3] Albuterol Nebulized [Ventolin 2.5 mg INHALATION 02/07/24 02/07/24 History Nebulized] RT-QID@,,, Apixaban [Eliquis] 5 mg PO BID@0800,1700 02/07/24 02/07/24 History Atorvastatin [Lipitor] 40 mg PO HS@2100 02/07/24 02/07/24 History Bumetanide [Bumex] 1 mg PO BID@0600,1400 02/07/24 02/07/24 History Collagenase [Santyl Ointment] 1 applic TOPICAL DAILY 02/07/24 02/07/24 History Dapagliflozin Propanediol [Farxiga] 10 mg PO DAILY@0800 02/07/24 02/07/24 History Hydrocortisone [Cortizone-10] 1 applic TOPICAL Q24H PRN 02/07/24 02/07/24 History INSULIN ASPART (NovoLOG) [NovoLOG See Protocol SQ AC-TID@07,11,1630 02/07/24 02/07/24 History (formulary)] Insulin Glargine [Lantus Vial] 50 unit SQ HS@2130 02/07/24 02/07/24 History Liquacel 30 ml PO BID@0800,1700 02/07/24 02/07/24 History Loperamide HCl [Imodium A-D] 2 - 4 mg PO QID PRN MDD 8mg 02/07/24 02/07/24 History Magnesium Hydroxide [Milk of 7,200 mg PO DAILY PRN 02/07/24 02/07/24 History Magnesia Concentrate] Magnesium Oxide [Mag-Ox] 400 mg PO BID@0800,1700 02/07/24 02/07/24 History Melatonin 5 mg PO HS@2100 02/07/24 02/07/24 History Na Phos,M-B/Na Phos,Di-Ba [Fleet 133 ml RECTAL DAILY PRN 02/07/24 02/07/24 History Adult] Pantoprazole [Protonix] 40 mg PO DAILY@0600 02/07/24 02/07/24 History Sacubitril/Valsartan [Entresto 24 2 tab PO BID@0900,2100 02/07/24 02/07/24 History mg-26 mg Tablet] Spironolactone [Aldactone] 25 mg PO DAILY@0800 02/07/24 02/07/24 History Tums 750mg Chewable 750 mg PO Q8H PRN 02/07/24 02/07/24 History bisacodyL [Dulcolax] 10 mg RECTAL DAILY PRN 02/07/24 02/07/24 History dilTIAZem HCL 30 mg PO QID@00,06,12,18 02/07/24 02/07/24 History guaiFENesin [guaiFENesin Oral 200 mg PO Q4H PRN 02/07/24 02/07/24 History Solution] methIMAzole [Tapazole] 5 mg PO DAILY@0800 02/07/24 02/07/24 History Allergies Allergy/AdvReac Type Severity Reaction Status Date / Time adhesive Allergy BLISTERING Verified 02/07/24 15:20 RASH amoxicillin Allergy Rash/Hives Verified 02/07/24 15:20 Penicillins Allergy Rash/Hives Verified 02/07/24 15:20 pollen extracts Allergy RHINITIS, Verified 02/07/24 15:20 SORE THROAT Physical Exam Vitals: Vital Signs Temp Pulse Resp BP Pulse Ox 02/08/24 07:36 98.1 F 89 18 99/65 98 02/08/24 05:54 98.0 F 88 15 106/80 97 02/08/24 04:00 72 14 101/59 98 02/08/24 03:00 80 15 93/73 97 02/08/24 02:00 83 15 100/59 98 02/08/24 01:17 72 15 105/61 100 02/08/24 00:00 79 16 96/54 100 02/07/24 23:15 93 14 93/57 99 02/07/24 23:11 76 14 89/50 98 02/07/24 23:00 71 14 83/58 99 02/07/24 22:00 80 14 103/57 100 02/07/24 21:00 93 14 106/60 98 02/07/24 20:00 97.6 F 95 15 118/94 98 02/07/24 19:57 73 17 97/55 99 02/07/24 18:03 83 18 94/58 100 02/07/24 17:18 70 18 87/65 98 02/07/24 14:50 98.1 F 73 18 94/65 99 Results 02/07/24 15:26 02/07/24 15:26 Cardiac Enzymes 02/07/24 Range/Units 15: AST 30 (17-59) U/L Coagulation 02/07/24 Range/Units 15:26 PT 14.4 H (10.0-12.5) sec APTT 44.5 H (22.0-30.0) sec CBC 02/07/24 Range/Units 15:26 WBC 6.6 (3.8-10.6) k/uL RBC 4.70 (4.30-5.90) m/uL Hgb 11.7 L (13.0-17.5) gm/dL Hct 37.3 L (39.0-53.0) % Plt Count 368 (150-450) k/uL Comprehensive Metabolic Panel 02/07/24 Range/Units 15:26 Sodium 134 L (137-145) mmol/L Potassium 4.4 (3.5-5.1) mmol/L Chloride 101 (98-107) mmol/L Carbon Dioxide 30 (22-30) mmol/L BUN 19 (9-20) mg/dL Creatinine 0.66 (0.66-1.25) mg/dL Glucose 142 H (74-99) mg/dL Calcium 8.5 (8.4-10.2) mg/dL AST 30 (17-59) U/L ALT 15 (4-49) U/L Alkaline Phosphatase 109 (38-126) U/L Total Protein 5.5 L (6.3-8.2) g/dL Albumin 2.4 L (3.5-5.0) g/dL Current Medications Generic Name Dose Route Start Last Admin Trade Name Freq PRN Reason Stop Dose Admin Sodium Chloride 1,000 mls @ 75 mls/hr 02/07/24 23:45 02/07/24 23:58 Saline 0.9% IV 75 mls/hr .[id number] PHOEBE Administration 02/07/24 15:26 02/07/24 15:26
[2024-02-08] MEDS: INSULIN ASPART (NovoLOG) 100 UNIT/ML VIAL SQ SCH (13:01)
[2024-02-08 13:02] LABS: Glucose,Whole Blood 141 mg/dL (70-110)
[2024-02-08] MEDS: BUMETANIDE 1 MG TAB PO SCH (13:23)
[2024-02-08] MEDS: HYDROcodone/APAP 10-325MG 1 EACH TAB PO PRN (14:46)
--- NOTE | 2024-02-08 16:40 | P.CNNES ---
History of Present Illness Consult date: 02/08/24 Requesting physician: Jah Wren Reason for Consult: TIA History of Present Illness: This is a 73-year-old gentleman with history of A-fib who is on Eliquis who presents to the emergency department because of speech difficulty. Patient stated that he presented because he was unable to get his words out even though he knew what he wanted to say and they are coming out wrong. He stated that this occurred yesterday at 3 PM while being at our facility. The episode lasted about 3 hours then resolved. Denies any focal weakness, numbness, visual disturbance. He denies missing his Eliquis. He denies any headache. He feels back to baseline. Some of the workup during this hospital visit consisted of: TSH is 0.758. Magnesium is 1.5 I reviewed the rest of the lab workup CT of the head is reported as no acute bleed or mass effect. Mild age- appropriate atrophy. I personally reviewed the CT and agree there is no acute or subacute stroke She is reported as atrial fibrillation. Review of Systems Positive and negative as per HPI Past Medical History Past Medical History: COPD, Diabetes Mellitus, Eye Disorder, Hyperlipidemia, Hypertension, Prostate Disorder, Sleep Apnea/CPAP/BIPAP, Thyroid Disorder Additional Past Medical History / Comment(s): HX PVC'S. MILD COPD. ANEMIA. HX KIDNEY STONES. BPH. HAD DIABETIC RETINOPATHY TX ON EYES. HAS HAD PICC LINE IN PAST, NOW OUT. CHRONIC BACK AND KNEE PAIN History of Any Multi-Drug Resistant Organisms: None Reported Past Surgical History: Orthopedic Surgery Additional Past Surgical History / Comment(s): RT THYROIDECTOMY. MASS FROM BACK, FATTY TUMOR. NASAL MASS REMOVED. LASER EYES, INTRAOCULAR LENS. WOUND ON RT FOOT I&D. LEFT KNEE ARTHROSCOPY, CYST REMOVED FROM TAILBONE Past Anesthesia/Blood Transfusion Reactions: Previous Problems w/ Anesthesia Additional Past Anesthesia/Blood Transfusion Reaction / Comment(s): OCC TAKES LONG TIME TO AWAKEN. Past Psychological History: No Psychological Hx Reported Smoking Status: Former smoker Past Alcohol Use History: None Reported Past Drug Use History: None Reported - Past Family History Mother Family Medical History: COPD Father Family Medical History: Diabetes Mellitus Additional Family Medical History / Comment(s): heart failure Medications and Allergies Home Medications Medication Instructions Recorded Confirmed Type Tamsulosin [Flomax] 0.4 mg PO BID@0900,2100 11/17/17 02/07/24 History carvediloL [Coreg] 25 mg PO BID@0800,1700 11/05/20 02/07/24 History Acetaminophen-Codeine 300-30mg 1 tab PO Q6H PRN 01/12/24 02/07/24 History [Tylenol w/codeine #3] Albuterol Nebulized [Ventolin 2.5 mg INHALATION 02/07/24 02/07/24 History Nebulized] RT-QID@,,, Apixaban [Eliquis] 5 mg PO BID@0800,1700 02/07/24 02/07/24 History Atorvastatin [Lipitor] 40 mg PO HS@209902/07/24 02/07/24 History Bumetanide [Bumex] 1 mg PO BID@0600,1400 02/07/24 02/07/24 History Collagenase [Santyl Ointment] 1 applic TOPICAL DAILY 02/07/24 02/07/24 History Dapagliflozin Propanediol [Farxiga] 10 mg PO DAILY@0802/07/24 02/07/24 History Hydrocortisone [Cortizone-10] 1 applic TOPICAL Q24H PRN 02/07/24 02/07/24 History INSULIN ASPART (NovoLOG) [NovoLOG See Protocol SQ AC-TID@,,1630 02/07/24 02/07/24 History (formulary)] Insulin Glargine [Lantus Vial] 50 unit SQ HS@212902/07/24 02/07/24 History Liquacel 30 ml PO BID@0800,17002/07/24 02/07/24 History Loperamide HCl [Imodium A-D] 2 - 4 mg PO QID PRN MDD 8mg 02/07/24 02/07/24 History Magnesium Hydroxide [Milk of 7,200 mg PO DAILY PRN 02/07/24 02/07/24 History Magnesia Concentrate] Magnesium Oxide [Mag-Ox] 400 mg PO BID@0800,1700 02/07/24 02/07/24 History Melatonin 5 mg PO HS@209902/07/24 02/07/24 History Na Phos,M-B/Na Phos,Di-Ba [Fleet 133 ml RECTAL DAILY PRN 02/07/24 02/07/24 History Adult] Pantoprazole [Protonix] 40 mg PO DAILY@0600 02/07/24 02/07/24 History Sacubitril/Valsartan [Entresto 24 2 tab PO BID@0900,2100 02/07/24 02/07/24 History mg-26 mg Tablet] Spironolactone [Aldactone] 25 mg PO DAILY@0800 02/07/24 02/07/24 History Tums 750mg Chewable 750 mg PO Q8H PRN 02/07/24 02/07/24 History bisacodyL [Dulcolax] 10 mg RECTAL DAILY PRN 02/07/24 02/07/24 History dilTIAZem HCL 30 mg PO QID@00,06,12,18 02/07/24 02/07/24 History guaiFENesin [guaiFENesin Oral 200 mg PO Q4H PRN 02/07/24 02/07/24 History Solution] methIMAzole [Tapazole] 5 mg PO DAILY@0800 02/07/24 02/07/24 History Allergies Allergy/AdvReac Type Severity Reaction Status Date / Time adhesive Allergy BLISTERING Verified 02/07/24 15:20 RASH amoxicillin Allergy Rash/Hives Verified 02/07/24 15:20 Penicillins Allergy Rash/Hives Verified 02/07/24 15:20 pollen extracts Allergy RHINITIS, Verified 02/07/24 15:20 SORE THROAT Physical Examination - Vital Signs Vital Signs: Vital Signs Temp Pulse Resp BP Pulse Ox 02/08/24 13:25 111 H 18 99 02/08/24 12:16 92 16 99 02/08/24 10:54 123 H 16 104/93 100 02/08/24 07:36 98.1 F 89 18 99/65 98 02/08/24 05:54 98.0 F 88 15 106/80 97 02/08/24 04:00 72 14 101/59 98 02/08/24 03:00 80 15 93/73 97 02/08/24 02:00 83 15 100/59 98 02/08/24 01:17 72 15 105/61 100 02/08/24 00:00 79 16 96/54 100 02/07/24 23:15 93 14 93/57 99 02/07/24 23:11 76 14 89/50 98 02/07/24 23:00 71 14 83/58 99 02/07/24 22:00 80 14 103/57 100 02/07/24 21:00 93 14 106/60 98 02/07/24 20:00 97.6 F 95 15 118/94 98 02/07/24 19:57 73 17 97/55 99 02/07/24 18:03 83 18 94/58 100 02/07/24 17:18 70 18 87/65 98 GENERAL: The patient is lying in bed and is not in acute distress. NEUROLOGICAL: Higher mental function: The patient is awake, alert, oriented to self, place and time. Patient is following commands. No aphasia and no neglect. Cranial nerves: The pupils are round, equal and reactive to light and accommodation. Visual lowry are full to confrontation throughout. Extraocular movement is intact no nystagmus is noted. Facial sensation is normal to touch throughout. The facial strength is normal throughout. Hearing is mildly decreased bilaterally to hand rub. Tongue is midline and moved [id number] without any difficulty. No dysarthria is noted. Shoulder shrug is normal bilaterally. Motor: The strength is 5 over 5 throughout. Normal tone and bulk. Cerebellum: Normal finger to nosebilaterally. Sensation: Sensation is normal to touch throughout. Reflexes (right/left): 2+ throughout. Plantars are downgoing bilaterally. Results - Laboratory Findings CBC and BMP: 02/07/24 15:26 02/07/24 15:26 Abnormal Lab Findings: Abnormal Labs 02/07/24 02/07/24 02/07/24 15: 15: 15: Hgb 11.7 L Hct 37.3 L MCV 79.3 L RDW 20.7 H Lymphocytes # 0.8 L PT 14.4 H INR 1.4 H APTT 44.5 H Sodium Glucose POC Glucose (mg/dL) Magnesium Total Bilirubin Total Protein Albumin Urine Glucose (UA) 4+ H 02/07/24 02/08/24 02/08/24 15: 09:52 13:01 Hgb Hct MCV RDW Lymphocytes # PT INR APTT Sodium 134 L Glucose 142 H POC Glucose (mg/dL) 145 H 141 H Magnesium 1.5 L Total Bilirubin 1.4 H Total Protein 5.5 L Albumin 2.4 L Urine Glucose (UA) Assessment and Plan Assessment: This is a 73-year-old gentleman with history of atrial fibrillation on Eliquis who presents emergency department because of expressive aphasia and his symptoms lasted for 3 hours. Likely Transient Ischemic attack (TIA) and presented with expressive aphasia. Has atrial fibrillation Ongoing Atrial fibrillation on eliquis DM Hypertension Hyperlipidemia Plan: I ordered MRI of the brain as well as carotid duplex Ordered limited 2D echo (had one recently in begining of this month showed reduced left ventricular systolic function with apical hypokinesis. Enlarged right ventricle with pulmonary hypertension. Biatrial enlargement). Lipid panel is ordered is pending Cardiology team is consulted for the A-fib. Patient was resumed on his home medication of Eliquis 5 mg twice daily. Patient was given aspirin 325 mg once in the ED in addition to the Eliquis since the patient continued to have sym ptoms while on Eliquis I added aspirin 81 mg daily for secondary stroke prophylaxis Patient is on Lipitor 40 mg nightly Continue neurochecks Cardiac monitoring Speech therapy is consulted Will defer the rest of the medical management to primary and other specialist For DVT prophylaxis the patient is on Eliquis Thank you for the consultation Time with Patient: Greater than 30
[2024-02-08] MEDS ORDERED: carvediloL 12.5 MG TAB PO SCH (17:00)
[2024-02-08 18:40] LABS: Glucose,Whole Blood 153 mg/dL (70-110)
[2024-02-08] MEDS: MAGNESIUM OXIDE 400 MG TAB PO SCH (18:45)
[2024-02-08] MEDS: APIXABAN 5 MG TAB PO SCH (18:45)
--- NOTE | 2024-02-08 21:08 | US ---
EXAMINATION TYPE: US carotid duplex BILAT DATE OF EXAM: 02/08/2024 COMPARISON: NONE CLINICAL INDICATION: Male, 73 years old with history of stroke; Possible stroke. Afib. TECHNIQUE: Carotid duplex ultrasound examination. Indirect Doppler criteria was utilized. FINDINGS: EXAM MEASUREMENTS: RIGHT: Peak Systolic Velocity (PSV) cm/sec ----- Right CCA: 51.6 ----- Right ICA: 66.7 ----- Right ECA: 66.6 ICA/CCA ratio: 1.3 RIGHT: End Diastole cm/sec ----- Right CCA: 9.8 ----- Right ICA: 25.6 ----- Right ECA: 0.0 LEFT: Peak Systolic Velocity (PSV) cm/sec ----- Left CCA: 63.4 ----- Left ICA: 172.0 ----- Left ECA: 103.0 ICA/CCA ratio: 2.7 LEFT: End Diastole cm/sec ----- Left CCA: 9.2 ----- Left ICA: 32.6 ----- Left ECA: 0.0 VERTEBRALS (direction of flow): Right Vertebral: Antegrade Left Vertebral: Unable to visualize today Rhythm: Arrhythmia CLAIMS ADMINISTRATOR NOTES: Elevated velocity seen within the left distal ICA. Unable to visualize the left ve rtebral artery today. Minimal plaquing is in the right carotid bulb. IMPRESSION: 1. Moderate narrowing of the left internal carotid artery between 50 and 69% based on velocities.. 2. Nonvisualization of the left vertebral artery. Criteria for Assigning % of Stenosis / Diameter reduction (Estimation based on the indirect measurements of the internal carotid artery velocities (ICA PSV). 1. Normal (no stenosis)=ICA PSV < 125 cm/s: ratio < 2.0: ICA EDV<40 cm/s. 2. Less than 50% stenosis=ICA PSV < 125 cm/s: ratio < 2.0: ICA EDV<40 cm/s. 3. 50 to 69% stenosis=ICA PSV of 125 to 230 cm/s: ration 2.0 ? 4.0: ICA EDV 40-100 cm/s. 4. Greater than 70% stenosis to near occlusion= ICA PSV > 230 cm/s: ratio > 4.0: ICA EDV > 100 cm/s. 5. Near occlusion= ICA PSV velocities may be low or undetectable: variable ratio and ICA EDV. 6. Total occlusion=unable to detect flow.
[2024-02-08 21:25] LABS: Glucose,Whole Blood 127 mg/dL (70-110)
[2024-02-08] MEDS: ATORVASTATIN 40 MG TAB PO SCH (22:01)
[2024-02-08] MEDS: MELATONIN 5 MG TABLET PO SCH (22:02)
[2024-02-08] MEDS: INSULIN DETEMIR (LEVEMIR) 100 UNIT/ML SYR SQ SCH (22:03)
[2024-02-08 23:00] LABS: Chol/HDL Ratio 4.74 Ratio; LDL Cholesterol,Calculated 72.9 mg/dL (0.0-131.0)
[2024-02-09] MEDS: PANTOPRAZOLE 40 MG TABLET PO SCH (05:09)
[2024-02-09 06:27] LABS: Glucose,Whole Blood 70 mg/dL (70-110)
[2024-02-09] MEDS: SPIRONOLACTONE 25 MG TAB PO SCH (07:46)
[2024-02-09] MEDS: DAPAGLIFLOZIN PROPANEDIOL 10 MG TABLET PO SCH (07:46)
[2024-02-09] MEDS: methIMAzole 5 MG TAB PO SCH (07:46)
[2024-02-09] MEDS: ASPIRIN 81 MG PO SCH (07:46)
--- NOTE | 2024-02-09 09:37 | P.PN ---
Subjective Progress Note Date: 02/09/24 Francisco Cao is a 73-year-old male patient who presented to the ER with concerns of expressive aphasia. Patient reports that he was at rehab facility and had just returned from PT and called his but was not able to get the words out which was concerning to the family. Patient reports symptoms only lasted a few minutes denies any other acute neurological symptoms. Patient has an extensive medical history including new onset A-fib in which she was cardioverted during recent hospitalization is maintained on Eliquis, COPD, diabetes mellitus, hyperlipidemia, prostate disorder, sleep apnea, thyroid disorder, chronic lower extremity lymphedema and morbid obesity. Head CT was completed in ER showing no acute bleed or mass effect. Mild age-appropriate atrophy. Chest x-ray completed showing no acute cardiopulmonary disease right pleural effusion seen on prior study has resolved. Lab work revealing UA negative. TSH 0.758, magnesium 1.5, creatinine 0.66 bun 19, white blood cell 6.6 and hemoglobin 11.7 at this time patient will be admitted cardiology and neurology services consulted On 02/09/2024 patient is alert and oriented x 3. Patient reports no further episodes of forgetfulness. Medications have been adjusted per cardiology services MRI has been ordered per neurology. Current vital signs temp 97.5, heart rate 85, respiratory rate 16, blood pressure 101/68 with a pulse ox of 100% on 2 L. Patient denies chest pain or shortness of breath. Patient denies nausea vomiting or diarrhea. Patient denies any urinary burning or frequency Objective - Vital Signs Vital signs: Vital Signs Temp 97.5 F L 02/09/24 03:58 Pulse 85 02/09/24 03:58 Resp 16 02/09/24 03:58 BP 101/68 02/09/24 03:58 Pulse Ox 100 02/09/24 07:58 FiO2 Intake & Output 02/08/24 02/09/24 02/09/24 18:59 06:59 18:59 Intake Total 250 Balance 250 Weight 104.78 kg Intake: Oral 250 Other: Voiding Method External Catheter # Voids 4 - Exam Head normocephalic Neck supple Lungs clear to auscultation bilaterally no wheezing or crackles Heart irregular rythym. known afib Abdomen is soft nontender nondistended positive bowel sounds no h epatosplenomegaly Extremities no edema. Bilateral lower extremity erythema Neuro alert and orientated to 3 - Labs CBC & Chem 7: 02/07/24 15:26 02/07/24 15:26 Labs: Abnormal Lab Results - Last 24 Hours (Table) 02/07/24 02/08/24 02/08/24 Range/Units 15:26 09:52 13:01 POC Glucose (mg/dL) 145 H 141 H (70-110) mg/dL HDL Cholesterol 24.90 L (40.00-60.00) mg/dL 02/08/24 02/08/24 Range/Units 18:39 21:24 POC Glucose (mg/dL) 153 H 127 H (70-110) mg/dL HDL Cholesterol (40.00-60.00) mg/dL Assessment and Plan Assessment: 1. Episode of expressive aphasia possible TIA 2. History of recent new onset atrial fibrillation with RVR status post cardi oversion. Patient is maintained on Eliquis. EKG completed this admission showing atrial fibrillation 3. History of chronic bilateral lower extremity lymphedema 4. History of COPD 5. History of CHF 6. History of morbid obesity 7. History of sleep apnea 8. History of hyperlipidemia 9. History of hypothyroidism 10. Diabetes mellitus type 2 DVT prophylaxis Eliquis. GI prophylaxis Protonix Cardiology and neurology services consulted MRI of the brain ordered per neurology Home meds reordered Repeat labs ordered
[2024-02-09 10:40] LABS: HCT 35.6 % (39.6-50.0); HGB 10.8 g/dL (13.0-17.0); MCH 24.7 pg (27.0-32.0); MCHC 30.3 g/dL (32.0-37.0); MCV 81.5 FL (80.0-97.0); Mean Platelet Volume 9.5 FL (9.5-12.2); NRBC Per 100 WBC 0 X 10*3/uL (0.00-0.01); Platelet Count 406 X 10*3/uL (140-440); RBC 4.37 X 10*6/uL (4.40-5.60); RDW 23.5 % (11.5-14.5); WBC 9.68 X 10*3/uL (4.50-10.00)
[2024-02-09 10:46] LABS: ALT 16 U/L (10-49); AST 19 U/L (14-35); Albumin 2.5 g/dL (3.8-4.9); Albumin/Globulin Ratio 1.04 Ratio (1.60-3.17); Alkaline Phosphatase 135 U/L (41-126); BUN/Creat Ratio 16.38 Ratio (12.00-20.00); Blood Urea Nitrogen 13.1 mg/dL (9.0-27.0); Calcium 8.2 mg/dL (8.7-10.3); Carbon Dioxide 31.6 mmol/L (21.6-31.8); Chloride 101 mmol/L (96-109); Globulin 2.4 g/dL (1.6-3.3); Glucose 63 mg/dL (70-110); Potassium 4.1 mmol/L (3.5-5.5); Sodium 139 mmol/L (135-145); Total Bilirubin 1.1 mg/dL (0.3-1.2); Total Protein 4.9 g/dL (6.2-8.2)
[2024-02-09 11:46] LABS: Anisocytosis (M) 2+; Basophils # (A) 0.05 X 10*3/uL (0.00-0.10); Basophils % (A) 0.5 %; Eosinophils # (A) 0.13 X 10*3/uL (0.04-0.35); Eosinophils % (A) 1.3 %; Lymphocytes # (A) 0.86 X 10*3/uL (0.90-5.00); Lymphocytes % (A) 8.9 %; Monocytes % (A) 7.2 %; Neutrophils # (A) 7.87 X 10*3/uL (1.80-7.70); Neutrophils % (A) 81.4 %
--- NOTE | 2024-02-09 12:10 | P.PN ---
Subjective HISTORY OF PRESENT ILLNESS: This is a 73-year-old male with a past medical history significant for atrial fibrillation, congestive heart failure, COPD, and hyperlipidemia. Patient states he is scheduled to see a mail handler assistant on Wednesday. We have been asked to see the patient in consultation for A-fib and TIA. Patient examined at the bedside in [facility]. Patient was hospitalized at the beginning of the month and was found to have new onset atrial fibrillation. He was started on Eliquis at that time. Patient has been at [facility] for rehab. He states he finished PT yesterday and called his afterwards and was unable to find the words when speaking. He states all his symptoms have resolved. He denies chest pain or pressure. Denies SOB. Patient remains in atrial fibrillation with heart rate range between [id number] the time of examination DIAGNOSTICS: - EKG reveals atrial fibrillation with controlled ventricular rate. - Chest xray negative for acute process. - CT brain no acute bleed or mass effect. - Laboratory data: WBC 6.6. Hemoglobin 11.7. Platelet count 368. Sodium 134. Potassium 4.4. BUN 19. Creatinine 0.66. Magnesium 1.5. TSH 0.758. - Current home cardiac medications include Cardizem 30 mg 4 times a day, Entresto 24-26 mg 2 tablets twice a day, Eliquis 5 mg twice a day, carvedilol 25 mg twice a day, Bumex 1 mg twice a day, Farxiga 10 mg daily, Lipitor 40 mg at night, Aldactone 25 mg daily - Most recent echocardiogram obtained in January 2024 revealed ejection fraction 35 to 40%, severe pulmonary hypertension, mild to moderate tricuspid regurgitation - Cardiac catheterization history: Unknown 02/05/2024 Patient examined this morning at the bedside. Patient currently denies chest pain or pressure. He denies shortness of breath. Blood pressure stable at 101/60. Telemetry reveals atrial fibrillation with heart rate between 18[address]. Denies any further episodes of expressive aphasia. MRI is pending. PHYSICAL EXAM: VITAL SIGNS: Reviewed. GENERAL: Well-developed in no acute distress. HEENT: Head is normocephalic. Pupils are equal, round. Sclerae anicteric. Mucous membranes of the mouth are moist. Neck supple. No JVD or thyromegaly LUNGS: Respirations even and unlabored. Lungs essentially clear to auscultation bilaterally. HEART: Irregular rate and rhythm. S1 and S2 heard. ABDOMEN: Soft. Nondistended. Nontender. EXTREMITIES: Normal range of motion. No clubbing or cyanosis. Peripheral pulses intact. Minimal lower extremity edema NEUROLOGIC: Awake and alert. ASSESSMENT: Expressive aphasia, possible TIA Recently diagnosed atrial fibrillation, on Eliquis outpatient, currently AF RVR 140s Coronary artery calcifications, prior CT in December 2023 Cardiomyopathy, ejection fraction 35 to 40%, ischemic versus nonischemic, suspect tachycardia induced Chronic heart failure with reduced EF, currently euvolemic Hypertension Hyperlipidemia Diabetes COPD Chronic lymphedema Hypomagnesemia Left internal carotid artery stenosis, 50 to 69% PLAN: No need to repeat echocardiogram as this was performed in January 2024 Entresto discontinued yesterday due to soft blood pressures Continue anticoagulation with Eliquis Continue telemetry monitoring Patient is currently stable from a cardiac perspective Further recommendations pending patient course Nurse practitioner note has been reviewed by physician. Signing provider agrees with the documented findings, assessment, and plan of care documented by JAVA LEAD ARCHITECT as a scribe. Objective - Vital Signs Vital signs: Vital Signs Temp 97.5 F L 02/09/24 07:00 Pulse 83 02/09/24 08:00 Resp 16 02/09/24 08:00 BP 92/61 02/09/24 07:00 Pulse Ox 94 L 02/09/24 11:48 FiO2 Intake & Output 02/08/24 02/09/24 02/09/24 18:59 06:59 18:59 Intake Total 250 Balance 250 Weight 104.78 kg Intake: Oral 250 Other: Voiding Method External Catheter External Catheter # Voids 4 - Labs CBC & Chem 7: 02/09/24 07:04 02/09/24 07:04 Labs: Abnormal Lab Results - Last 24 Hours (Table) 02/07/24 02/08/24 02/08/24 Range/Units 15:26 13:01 18:39 RBC (4.40-5.60) X 10*6/uL Hgb (13.0-17.0) g/dL Hct (39.6-50.0) % MCH (27.0-32.0) pg MCHC (32.0-37.0) g/dL RDW (11.5-14.5) % Immature Gran # (0.00-0.04) X 10*3/uL Neutrophils # (1.80-7.70) X 10*3/uL Lymphocytes # (0.90-5.00) X 10*3/uL Anisocytosis (manual) Glucose (70-110) mg/dL POC Glucose (mg/dL) 141 H 153 H (70-110) mg/dL Hemoglobin A1c (<=6.0) % Calcium (8.7-10.3) mg/dL Alkaline Phosphatase (41-126) U/L Total Protein (6.2-8.2) g/dL Albumin (3.8-4.9) g/dL Albumin/Globulin Ratio (1.60-3.17) Ratio HDL Cholesterol 24.90 L (40.00-60.00) mg/dL 02/08/24 02/09/24 02/09/24 Range/Units 21:24 07:04 07:04 RBC 4.37 L (4.40-5.60) X 10*6/uL Hgb 10.8 L (13.0-17.0) g/dL Hct 35.6 L (39.6-50.0) % MCH 24.7 L (27.0-32.0) pg MCHC 30.3 L (32.0-37.0) g/dL RDW 23.5 H (11.5-14.5) % Immature Gran # 0.07 H (0.00-0.04) X 10*3/uL Neutrophils # 7.87 H (1.80-7.70) X 10*3/uL Lymphocytes # 0.86 L (0.90-5.00) X 10*3/uL Anisocytosis (manual) 2+ A Glucose (70-110) mg/dL POC Glucose (mg/dL) 127 H (70-110) mg/dL Hemoglobin A1c 10.2 H (<=6.0) % Calcium (8.7-10.3) mg/dL Alkaline Phosphatase (41-126) U/L Total Protein (6.2-8.2) g/dL Albumin (3.8-4.9) g/dL Albumin/Globulin Ratio (1.60-3.17) Ratio HDL Cholesterol (40.00-60.00) mg/dL 02/09/24 Range/Units 07:04 RBC (4.40-5.60) X 10*6/uL Hgb (13.0-17.0) g/dL Hct (39.6-50.0) % MCH (27.0-32.0) pg MCHC (32.0-37.0) g/dL RDW (11.5-14.5) % Immature Gran # (0.00-0.04) X 10*3/uL Neutrophils # (1.80-7.70) X 10*3/uL Lymphocytes # (0.90-5.00) X 10*3/uL Anisocytosis (manual) Glucose 63 L (70-110) mg/dL POC Glucose (mg/dL) (70-110) mg/dL Hemoglobin A1c (<=6.0) % Calcium 8.2 L (8.7-10.3) mg/dL Alkaline Phosphatase 135 H (41-126) U/L Total Protein 4.9 L (6.2-8.2) g/dL Albumin 2.5 L (3.8-4.9) g/dL Albumin/Globulin Ratio 1.04 L (1.60-3.17) Ratio HDL Cholesterol (40.00-60.00) mg/dL
[2024-02-09 12:29] LABS: Glucose,Whole Blood 100 mg/dL (70-110)
--- NOTE | 2024-02-09 16:33 | P.PN ---
Subjective Progress Note Date: 02/09/24 I am following-up with patient and is doing better. No new neurological issues. Objective - Vital Signs Vital signs: Vital Signs Temp 98.2 F 02/09/24 15:00 Pulse 100 02/09/24 15:00 Resp 16 02/09/24 15:00 BP 104/66 02/09/24 15:00 Pulse Ox 95 02/09/24 15:00 FiO2 Intake & Output 02/08/24 02/09/24 02/09/24 18:59 06:59 18:59 Intake Total 250 118 Balance 250 118 Weight 104.78 kg Intake: Oral 250 118 Other: Voiding Method External Catheter External Catheter # Voids 4 3 - Exam GENERAL: The patient is lying in bed and is not in acute distress. NEUROLOGICAL: Higher mental function: The patient is awake, alert, oriented to self, place and time. Patient is following commands. No aphasia and no neglect. Cranial nerves: The pupils are round, equal and reactive to light and accommodation. Visual lowry are full to confrontation throughout. Extraocular movement is intact no nystagmus is noted. Facial sensation is normal to touch throughout. The facial strength is normal throughout. Hearing is mildly decreased bilaterally to hand rub. Tongue is midline and moved [id number] without any difficulty. No dysarthria is noted. Shoulder shrug is normal bilaterally. Motor: The strength is 5 over 5 throughout. Normal tone and bulk. Cerebellum: Normal finger to nosebilaterally. Sensation: Sensation is normal to touch throughout. Reflexes (right/left): 2+ throughout. Plantars are downgoing bilaterally. Some of the workup during this hospital visit consisted of: TSH is 0.758. Magnesium is 1.5 Lipid panel: TG 101, Cholestrol 118, LDL 72 and HDL 24 TSH: 0.758 HbA1c: 10.2 CT of the head is reported as no acute bleed or mass effect. Mild age- appropriate atrophy. I personally reviewed the CT and agree there is no acute or subacute stroke Carotid duplex: reported as moderate narrowing of left ICA between 50-69% EKG is reported as atrial fibrillation. - Labs CBC & Chem 7: 02/09/24 07:04 02/09/24 07:04 Labs: Abnormal Lab Results - Last 24 Hours (Table) 02/07/24 02/07/24 02/08/24 Range/Units 15:26 15:26 18:39 RBC (4.40-5.60) X 10*6/uL Hgb 11.7 L (13.0-17.5) gm/dL Hct 37.3 L (39.0-53.0) % MCV 79.3 L (80.0-100.0) fL MCH (27.0-32.0) pg MCHC (32.0-37.0) g/dL RDW 20.7 H (11.5-15.5) % Immature Gran # (0.00-0.04) X 10*3/uL Neutrophils # (1.80-7.70) X 10*3/uL Lymphocytes # 0.8 L (1.0-4.8) k/uL Anisocytosis (manual) Glucose (70-110) mg/dL POC Glucose (mg/dL) 153 H (70-110) mg/dL Hemoglobin A1c (<=6.0) % Calcium (8.7-10.3) mg/dL Alkaline Phosphatase (41-126) U/L Total Protein (6.2-8.2) g/dL Albumin (3.8-4.9) g/dL Albumin/Globulin Ratio (1.60-3.17) Ratio HDL Cholesterol 24.90 L (40.00-60.00) mg/dL 02/08/24 02/09/24 02/09/24 Range/Units 21:24 07:04 07:04 RBC 4.37 L (4.40-5.60) X 10*6/uL Hgb 10.8 L (13.0-17.5) gm/dL Hct 35.6 L (39.0-53.0) % MCV (80.0-100.0) fL MCH 24.7 L (27.0-32.0) pg MCHC 30.3 L (32.0-37.0) g/dL RDW 23.5 H (11.5-15.5) % Immature Gran # 0.07 H (0.00-0.04) X 10*3/uL Neutrophils # 7.87 H (1.80-7.70) X 10*3/uL Lymphocytes # 0.86 L (1.0-4.8) k/uL Anisocytosis (manual) 2+ A Glucose (70-110) mg/dL POC Glucose (mg/dL) 127 H (70-110) mg/dL Hemoglobin A1c 10.2 H (<=6.0) % Calcium (8.7-10.3) mg/dL Alkaline Phosphatase (41-126) U/L Total Protein (6.2-8.2) g/dL Albumin (3.8-4.9) g/dL Albumin/Globulin Ratio (1.60-3.17) Ratio HDL Cholesterol (40.00-60.00) mg/dL 02/09/24 Range/Units 07:04 RBC (4.40-5.60) X 10*6/uL Hgb (13.0-17.5) gm/dL Hct (39.0-53.0) % MCV (80.0-100.0) fL MCH (27.0-32.0) pg MCHC (32.0-37.0) g/dL RDW (11.5-15.5) % Immature Gran # (0.00-0.04) X 10*3/uL Neutrophils # (1.80-7.70) X 10*3/uL Lymphocytes # (1.0-4.8) k/uL Anisocytosis (manual) Glucose 63 L (70-110) mg/dL POC Glucose (mg/dL) (70-110) mg/dL Hemoglobin A1c (<=6.0) % Calcium 8.2 L (8.7-10.3) mg/dL Alkaline Phosphatase 135 H (41-126) U/L Total Protein 4.9 L (6.2-8.2) g/dL Albumin 2.5 L (3.8-4.9) g/dL Albumin/Globulin Ratio 1.04 L (1.60-3.17) Ratio HDL Cholesterol (40.00-60.00) mg/dL Assessment and Plan Assessment: This is a 73-year-old gentleman with history of atrial fibrillation on Eliquis who presents emergency department because of expressive aphasia and his symptoms lasted for 3 hours. Likely Transient Ischemic attack (TIA) and presented with expressive aphasia. Has atrial fibrillation and left ICA stenosis that is mild to moderate. Left ICA stenosis of 50-69% Ongoing Atrial fibrillation on eliquis Uncontrolled DM (HbA1c 10.2) Hypertension Hyperlipidemia Plan: Pending MRI of the brain as well as carotid duplex Per cardiology no need to repeat echo. He had one recently in begining of this month showed reduced left ventricular systolic function with apical hypokinesis. Enlarged right ventricle with pulmonary hypertension. Biatrial enlargement. Cardiology team is consulted for the A-fib. Patient was resumed on his home medication of Eliquis 5 mg twice daily. Patient was given aspirin 325 mg once in the ED in addition to the Eliquis since the patient continued to have symptoms while on Eliquis I added aspirin 81 mg daily for secondary stroke prophylaxis Patient is on Lipitor 40 mg nightly vascular surgery team is consulted for carotid stenosis. Continue neurochecks Cardiac monitoring Speech therapy is consulted Will defer the rest of the medical management to primary and other specialist For DVT prophylaxis the patient is on Eliquis Time with Patient: Less than 30
[2024-02-09 17:03] LABS: Glucose,Whole Blood 153 mg/dL (70-110)
[2024-02-09 20:15] LABS: Glucose,Whole Blood 85 mg/dL (70-110)
[2024-02-09] MEDS ORDERED: HYDROcodone/APAP 10-325MG 1 EACH TAB ONE (23:07)
[2024-02-10] MEDS: AMMONIUM LACTATE 12% CREAM 140 GM TUBE TOPICAL SCH (04:59)
[2024-02-10 06:15] LABS: Glucose,Whole Blood 97 mg/dL (70-110)
[2024-02-10 11:01] LABS: Basophils # (A) 0.04 X 10*3/uL (0.00-0.10); Basophils % (A) 0.6 %; Eosinophils # (A) 0.12 X 10*3/uL (0.04-0.35); Eosinophils % (A) 1.7 %; HCT 31.1 % (39.6-50.0); HGB 9.7 g/dL (13.0-17.0); Lymphocytes # (A) 0.93 X 10*3/uL (0.90-5.00); Lymphocytes % (A) 13.3 %; MCH 24.7 pg (27.0-32.0); MCHC 31.2 g/dL (32.0-37.0); MCV 79.1 FL (80.0-97.0); Mean Platelet Volume 9.2 FL (9.5-12.2); Monocytes # (A) 0.64 X 10*3/uL (0.20-1.00); Monocytes % (A) 9.2 %; NRBC Per 100 WBC 0 X 10*3/uL (0.00-0.01); Neutrophils # (A) 5.22 X 10*3/uL (1.80-7.70); Neutrophils % (A) 74.6 %; Platelet Count 321 X 10*3/uL (140-440); RBC 3.93 X 10*6/uL (4.40-5.60); RDW 23.7 % (11.5-14.5); WBC 6.99 X 10*3/uL (4.50-10.00)
[2024-02-10 11:18] LABS: ALT 14 U/L (10-49); AST 15 U/L (14-35); Albumin 2.3 g/dL (3.8-4.9); Alkaline Phosphatase 127 U/L (41-126); BUN/Creat Ratio 18.57 Ratio (12.00-20.00); Carbon Dioxide 27.9 mmol/L (21.6-31.8); Chloride 101 mmol/L (96-109); Globulin 2.3 g/dL (1.6-3.3); Glucose 101 mg/dL (70-110); Potassium 4.2 mmol/L (3.5-5.5); Sodium 136 mmol/L (135-145); Total Bilirubin 1.1 mg/dL (0.3-1.2); Total Protein 4.6 g/dL (6.2-8.2)
[2024-02-10 12:22] LABS: Glucose,Whole Blood 123 mg/dL (70-110)
--- NOTE | 2024-02-10 12:36 | P.PN ---
Subjective HISTORY OF PRESENT ILLNESS: This is a 73-year-old male with a past medical history significant for atrial fibrillation, congestive heart failure, COPD, and hyperlipidemia. Patient states he is scheduled to see a short filler bunch machine operator on Wednesday. We have been asked to see the patient in consultation for A-fib and TIA. Patient examined at the bedside in [facility] ER. Patient was hospitalized at the beginning of the month and was found to have new onset atrial fibrillation. He was started on Eliquis at that time. Patient has been at [facility] for rehab. He states he finished PT yesterday and called his afterwards and was unable to find the words when speaking. He states all his symptoms have resolved. He denies chest pain or pressure. Denies SOB. Patient remains in atrial fibrillation with heart rate range between 634017 the time of examination DIAGNOSTICS: - EKG reveals atrial fibrillation with controlled ventricular rate. - Chest xray negative for acute process. - CT brain no acute bleed or mass effect. - Laboratory data: WBC 6.6. Hemoglobin 11.7. Platelet count 368. Sodium 134. Potassium 4.4. BUN 19. Creatinine 0.66. Magnesium 1.5. TSH 0.758. - Current home cardiac medications include Cardizem 30 mg 4 times a day, Entresto 24-26 mg 2 tablets twice a day, Eliquis 5 mg twice a day, carvedilol 25 mg twice a day, Bumex 1 mg twice a day, Farxiga 10 mg daily, Lipitor 40 mg at night, Aldactone 25 mg daily - Most recent echocardiogram obtained in January 2024 revealed ejection fraction 35 to 40%, severe pulmonary hypertension, mild to moderate tricuspid regurgitation - Cardiac catheterization history: Unknown 02/09/2024 Patient examined this morning at the bedside. Patient currently denies chest pain or pressure. He denies shortness of breath. Blood pressure stable at 101/60. Telemetry reveals atrial fibrillation with heart rate between 45375. Denies any further episodes of expressive aphasia. MRI is pending. February 10, 2024 Patient examined this morning the bedside. Patient currently denies chest pain or pressure. He denies shortness of breath. Blood pressure stable with reading of 120/72. Telemetry reveals atrial fibrillation with controlled ventricular rate. MRI remains pending. PHYSICAL EXAM: VITAL SIGNS: Reviewed. GENERAL: Well-developed in no acute distress. HEENT: Head is normocephalic. Pupils are equal, round. Sclerae anicteric. Mucous membranes of the mouth are moist. Neck supple. No JVD or thyromegaly LUNGS: Respirations even and unlabored. Lungs essentially clear to auscultation bilaterally. HEART: Irregular rate and rhythm. S1 and S2 heard. ABDOMEN: Soft. Nondistended. Nontender. EXTREMITIES: Normal range of motion. No clubbing or cyanosis. Peripheral pulses intact. Minimal lower extremity edema NEUROLOGIC: Awake and alert. ASSESSMENT: Expressive aphasia, possible TIA Recently diagnosed atrial fibrillation, on Eliquis outpatient, currently AF RVR 140s Coronary artery calcifications, prior CT in December 2023 Cardiomyopathy, ejection fraction 35 to 40%, ischemic versus nonischemic, suspect tachycardia induced Chronic heart failure with reduced EF, currently euvolemic Hypertension Hyperlipidemia Diabetes COPD Chronic lymphedema Hypomagnesemia Left internal carotid artery stenosis, 50 to 69% PLAN: No need to repeat echocardiogram as this was performed in January 2024 Entresto discontinued due to soft blood pressures Continue anticoagulation with Eliquis Continue telemetry monitoring Patient is currently stable from a cardiac perspective Further recommendations pending patient course Nurse practitioner note has been reviewed by physician. Signing provider agrees with the documented findings, assessment, and plan of care documented by PRODUCTION ILLUSTRATOR as a scribe. Objective - Vital Signs Vital signs: Vital Signs Temp 98.0 F 02/10/24 07:00 Pulse 88 02/10/24 07:00 Resp 16 02/10/24 07:50 BP 120/72 02/10/24 07:00 Pulse Ox 94 L 02/10/24 07:00 FiO2 Intake & Output 02/09/24 02/10/24 02/10/24 18:59 06:59 18:59 Intake Total 236 Output Total 600 150 Balance -364 -150 Intake: Oral 236 Output: Urine 600 150 Other: Voiding Method External Catheter External Catheter # Voids 3 - Labs CBC & Chem 7: 02/10/24 07:23 02/10/24 07:23 Labs: Abnormal Lab Results - Last 24 Hours (Table) 02/07/24 02/09/24 02/09/24 Range/Units 15:26 07:04 07:04 RBC 4.37 L (4.40-5.60) X 10*6/uL Hgb 11.7 L 10.8 L (13.0-17.5) gm/dL Hct 37.3 L 35.6 L (39.0-53.0) % MCV 79.3 L (80.0-100.0) fL MCH 24.7 L (27.0-32.0) pg MCHC 30.3 L (32.0-37.0) g/dL RDW 20.7 H 23.5 H (11.5-15.5) % Immature Gran # 0.07 H (0.00-0.04) X 10*3/uL Neutrophils # 7.87 H (1.80-7.70) X 10*3/uL Lymphocytes # 0.8 L 0.86 L (1.0-4.8) k/uL Anisocytosis (manual) 2+ A Glucose (70-110) mg/dL POC Glucose (mg/dL) (70-110) mg/dL Hemoglobin A1c 10.2 H (<=6.0) % Calcium (8.7-10.3) mg/dL Alkaline Phosphatase (41-126) U/L Total Protein (6.2-8.2) g/dL Albumin (3.8-4.9) g/dL Albumin/Globulin Ratio (1.60-3.17) Ratio 02/09/24 02/09/24 Range/Units 07:04 17:02 RBC (4.40-5.60) X 10*6/uL Hgb (13.0-17.5) gm/dL Hct (39.0-53.0) % MCV (80.0-100.0) fL MCH (27.0-32.0) pg MCHC (32.0-37.0) g/dL RDW (11.5-15.5) % Immature Gran # (0.00-0.04) X 10*3/uL Neutrophils # (1.80-7.70) X 10*3/uL Lymphocytes # (1.0-4.8) k/uL Anisocytosis (manual) Glucose 63 L (70-110) mg/dL POC Glucose (mg/dL) 153 H (70-110) mg/dL Hemoglobin A1c (<=6.0) % Calcium 8.2 L (8.7-10.3) mg/dL Alkaline Phosphatase 135 H (41-126) U/L Total Protein 4.9 L (6.2-8.2) g/dL Albumin 2.5 L (3.8-4.9) g/dL Albumin/Globulin Ratio 1.04 L (1.60-3.17) Ratio
[2024-02-10 14:51] VITALS: BMI 34.1
--- NOTE | 2024-02-10 15:05 | P.GSCN ---
History of Present Illness Consult date: 02/10/24 Reason for Consult: Carotid stenosis. History of present illness: Patient is a 73-year-old male who was admitted to the hospital for evaluation in reference to a 3-hour timeframe where he was unable to speak. He indicated he could not clearly formulate the words in his mind however was not able to express his thoughts/verbiage. He has a history of this occurring in the past associated with migraine cephalgia. He indicates he has a history of migraines since being a young man and this has happened in the past dating back multiple years. He has recently been diagnosed with atrial fibrillation and congestive heart failure. He tells me that he has lost over 100 pounds worth of excess fluid. He does not ambulate any degree because of knee issues. Is a very short history of tobacco use smoking approximately 1/2 pack of cigarettes daily for 10 years. He did stop smoking many years prior. He indicates that because he does not walk he spends a many hours daily with his legs hanging in a dependent position sitting in a chair. He now has a wound at the left heel area. Past Medical History Past Medical History: Atrial Fibrillation, Heart Failure, COPD, Diabetes Mellitus, Eye Disorder, Hyperlipidemia, Hypertension, Prostate Disorder, Sleep Apnea/CPAP/BIPAP, Thyroid Disorder Additional Past Medical History / Comment(s): HX PVC'S. MILD COPD. ANEMIA. HX KIDNEY STONES. BPH. HAD DIABETIC RETINOPATHY TX ON EYES. HAS HAD PICC LINE IN PAST, NOW OUT. CHRONIC BACK AND KNEE PAIN, lymphedema bilateral legs History of Any Multi-Drug Resistant Organisms: None Reported Past Surgical History: Orthopedic Surgery Additional Past Surgical History / Comment(s): RT THYROIDECTOMY. MASS FROM B ACK, FATTY TUMOR. NASAL MASS REMOVED. LASER EYES, INTRAOCULAR LENS. WOUND ON RT FOOT I&D. LEFT KNEE ARTHROSCOPY, multiple CYST REMOVED FROM TAILBONE Past Anesthesia/Blood Transfusion Reactions: Previous Problems w/ Anesthesia Additional Past Anesthesia/Blood Transfusion Reaction / Comm: OCC TAKES LONG TIME TO AWAKEN. Past Psychological History: No Psychological Hx Reported Smoking Status: Former smoker Past Alcohol Use History: None Reported Additional Past Alcohol Use History / Comment(s): SMOKED 25 YEARS, 1 PPD, QUIT 1999 Past Drug Use History: None Reported - Past Family History Mother Family Medical History: COPD Father Family Medical History: Diabetes Mellitus Additional Family Medical History / Comment(s): heart failure Medications and Allergies Home Medications Medication Instructions Recorded Confirmed Type Tamsulosin [Flomax] 0.4 mg PO BID@0900,2100 11/17/17 02/07/24 History carvediloL [Coreg] 25 mg PO BID@0800,1700 11/05/20 02/07/24 History Acetaminophen-Codeine 300-30mg 1 tab PO Q6H PRN 01/12/24 02/07/24 History [Tylenol w/codeine #3] Albuterol Nebulized [Ventolin 2.5 mg INHALATION 02/07/24 02/07/24 History Nebulized] RT-QID@00,,, Apixaban [Eliquis] 5 mg PO BID@0800,1700 02/07/24 02/07/24 History Atorvastatin [Lipitor] 40 mg PO HS@209902/07/24 02/07/24 History Bumetanide [Bumex] 1 mg PO BID@0600,1400 02/07/24 02/07/24 History Collagenase [Santyl Ointment] 1 applic TOPICAL DAILY 02/07/24 02/07/24 History Dapagliflozin Propanediol [Farxiga] 10 mg PO DAILY@0800 02/07/24 02/07/24 History Hydrocortisone [Cortizone-10] 1 applic TOPICAL Q24H PRN 02/07/24 02/07/24 History INSULIN ASPART (NovoLOG) [NovoLOG See Protocol SQ AC-TID@07,11,1630 02/07/24 02/07/24 History (formulary)] Insulin Glargine [Lantus Vial] 50 unit SQ HS@21302/07/24 02/07/24 History Liquacel 30 ml PO BID@0800,1700 02/07/24 02/07/24 History Loperamide HCl [Imodium A-D] 2 - 4 mg PO QID PRN MDD 8mg 02/07/24 02/07/24 History Magnesium Hydroxide [Milk of 7,200 mg PO DAILY PRN 02/07/24 02/07/24 History Magnesia Concentrate] Magnesium Oxide [Mag-Ox] 400 mg PO BID@0800,1700 02/07/24 02/07/24 History Melatonin 5 mg PO HS@209902/07/24 02/07/24 History Na Phos,M-B/Na Phos,Di-Ba [Fleet 133 ml RECTAL DAILY PRN 02/07/24 02/07/24 History Adult] Pantoprazole [Protonix] 40 mg PO DAILY@0600 02/07/24 02/07/24 History Sacubitril/Valsartan [Entresto 24 2 tab PO BID@0900,2100 02/07/24 02/07/24 Hi story mg-26 mg Tablet] Spironolactone [Aldactone] 25 mg PO DAILY@0800 02/07/24 02/07/24 History Tums 750mg Chewable 750 mg PO Q8H PRN 02/07/24 02/07/24 History bisacodyL [Dulcolax] 10 mg RECTAL DAILY PRN 02/07/24 02/07/24 History dilTIAZem HCL 30 mg PO QID@00,06,12,18 02/07/24 02/07/24 History guaiFENesin [guaiFENesin Oral 200 mg PO Q4H PRN 02/07/24 02/07/24 History Solution] methIMAzole [Tapazole] 5 mg PO DAILY@0800 02/07/24 02/07/24 History Allergies Allergy/AdvReac Type Severity Reaction Status Date / Time adhesive Allergy BLISTERING Verified 02/07/24 15:20 RASH amoxicillin Allergy Rash/Hives Verified 02/07/24 15:20 Penicillins Allergy Rash/Hives Verified 02/07/24 15:20 pollen extracts Allergy RHINITIS, Verified 02/07/24 15:20 SORE THROAT Surgical - Exam Osteopathic Statement: *. No significant issues noted on an osteopathic structural exam other than those noted in the History and Physical/Consult. Vital Signs Temp Pulse Resp BP Pulse Ox 98.1 F 73 18 94/65 99 02/07/24 14:50 02/07/24 14:50 02/07/24 14:50 02/07/24 14:50 02/07/24 14:50 Patient Seen Date: 02/10/24 Patient Seen Time: 14:20 Patient is awake and alert. Cooperative in no apparent distress. HEENT: Normocephalic and atraumatic. There is no scleral icterus noted. No nystagmus noted. No carotid bruit appreciated. Cardiac: Irregular rhythm. Lungs: Clear to auscultation bilaterally. Abdomen: Soft and otherwise benign. Extremities: Femoral pulses are intact bilaterally. Pedal pulses are absent bilaterally. Large amount of desquamating skin is noted on the dorsum of the left foot and first second and third toes. This was debrided as best as possible. Patient does have an unstageable left heel wound which measures approximately 4 cm. It shows signs of healing. No drainage noted. Stasis dermatitic changes are noted bilaterally. Results - Labs 02/10/24 07:23 02/10/24 07:23 Abnormal Lab Results - Last 24 Hours (Table) 02/09/24 02/10/24 02/10/24 Range/Units 17:02 07:23 07:23 RBC 3.93 L (4.40-5.60) X 10*6/uL Hgb 9.7 L (13.0-17.0) g/dL Hct 31.1 L (39.6-50.0) % MCV 79.1 L (80.0-97.0) FL MCH 24.7 L (27.0-32.0) pg MCHC 31.2 L (32.0-37.0) g/dL RDW 23.7 H (11.5-14.5) % MPV 9.2 L (9.5-12.2) FL POC Glucose (mg/dL) 153 H (70-110) mg/dL Calcium 8.0 L (8.7-10.3) mg/dL Alkaline Phosphatase 127 H (41-126) U/L Total Protein 4.6 L (6.2-8.2) g/dL Albumin 2.3 L (3.8-4.9) g/dL Albumin/Globulin Ratio 1.00 L (1.60-3.17) Ratio 02/10/24 Range/Units 12:22 RBC (4.40-5.60) X 10*6/uL Hgb (13.0-17.0) g/dL Hct (39.6-50.0) % MCV (80.0-97.0) FL MCH (27.0-32.0) pg MCHC (32.0-37.0) g/dL RDW (11.5-14.5) % MPV (9.5-12.2) FL POC Glucose (mg/dL) 123 H (70-110) mg/dL Calcium (8.7-10.3) mg/dL Alkaline Phosphatase (41-126) U/L Total Protein (6.2-8.2) g/dL Albumin (3.8-4.9) g/dL Albumin/Globulin Ratio (1.60-3.17) Ratio Diabetes panel 02/10/24 Range/Units 07:23 Sodium 136 (135-145) mmol/L Potassium 4.2 (3.5-5.5) mmol/L Chloride 101 (96-109) mmol/L Carbon Dioxide 27.9 (21.6-31.8) mmol/L BUN 13.0 (9.0-27.0) mg/dL Creatinine 0.7 (0.6-1.5) mg/dL Glucose 101 (70-110) mg/dL Calcium 8.0 L (8.7-10.3) mg/dL AST 15 (14-35) U/L ALT 14 (10-49) U/L Alkaline Phosphatase 127 H (41-126) U/L Total Protein 4.6 L (6.2-8.2) g/dL Albumin 2.3 L (3.8-4.9) g/dL Calcium panel 02/10/24 Range/Units 07:23 Calcium 8.0 L (8.7-10.3) mg/dL Albumin 2.3 L (3.8-4.9) g/dL Pituitary panel 02/10/24 Range/Units 07:23 Sodium 136 (135-145) mmol/L Potassium 4.2 (3.5-5.5) mmol/L Chloride 101 (96-109) mmol/L Carbon Dioxide 27.9 (21.6-31.8) mmol/L BUN 13.0 (9.0-27.0) mg/dL Creatinine 0.7 (0.6-1.5) mg/dL Glucose 101 (70-110) mg/dL Calcium 8.0 L (8.7-10.3) mg/dL Adrenal panel 02/10/24 Range/Units 07:23 Sodium 136 (135-145) mmol/L Potassium 4.2 (3.5-5.5) mmol/L Chloride 101 (96-109) mmol/L Carbon Dioxide 27.9 (21.6-31.8) mmol/L BUN 13.0 (9.0-27.0) mg/dL Creatinine 0.7 (0.6-1.5) mg/dL Glucose 101 (70-110) mg/dL Calcium 8.0 L (8.7-10.3) mg/dL Total Bilirubin 1.1 (0.3-1.2) mg/dL AST 15 (14-35) U/L ALT 14 (10-49) U/L Alkaline Phosphatase 127 H (41-126) U/L Total Protein 4.6 L (6.2-8.2) g/dL Albumin 2.3 L (3.8-4.9) g/dL - Imaging Additional studies: Carotid duplex study reviewed. Assessment and Plan Assessment: 1: Less than 50% degree of stenosis left ICA based on the peak systolic velocity of 172 cm/s. 2: Anemia, 3: Chronic venous insufficiency with stasis dermatitis bilateral lower extremities. 4: Pressure ulcer left heel, present on admission. 5: Atrial fibrillation. 6: Diabetes mellitus 7: History of hypertension. 8: History of dyslipidemia. Plan: 1: No vascular surgical intervention is warranted at this time, agree with medical regimen. 2: Yearly carotid duplex. I would like to see the patient in the office in 1 year, sooner should symptoms warrant. 3: Protective boot to be applied to the left heel for offloading of the wound. 4: Patient would benefit by long-term use of compression device such as a Farrow wrap if unable to utilize compression hose. 5: Will reevaluate at your request. Time with Patient: Greater than 30
[2024-02-10 16:53] LABS: Glucose,Whole Blood 148 mg/dL (70-110)
--- NOTE | 2024-02-10 17:20 | P.PN ---
Subjective Progress Note Date: 02/10/24 Francisco Cao is a 73-year-old male patient who presented to the ER with concerns of expressive aphasia. Patient reports that he was at rehab facility and had just returned from PT and called his but was not able to get the words out which was concerning to the family. Patient reports symptoms only lasted a few minutes denies any other acute neurological symptoms. Patient has an extensive medical history including new onset A-fib in which she was cardioverted during recent hospitalization is maintained on Eliquis, COPD, diabetes mellitus, hyperlipidemia, prostate disorder, sleep apnea, thyroid disorder, chronic lower extremity lymphedema and morbid obesity. Head CT was completed in ER showing no acute bleed or mass effect. Mild age-appropriate atrophy. Chest x-ray completed showing no acute cardiopulmonary disease right pleural effusion seen on prior study has resolved. Lab work revealing UA negative. TSH 0.758, magnesium 1.5, creatinine 0.66 bun 19, white blood cell 6.6 and hemoglobin 11.7 at this time patient will be admitted cardiology and neurology services consulted On 02/09/2024 patient is alert and oriented x 3. Patient reports no further episodes of forgetfulness. Medications have been adjusted per cardiology services MRI has been ordered per neurology. Current vital signs temp 97.5, heart rate 85, respiratory rate 16, blood pressure 101/68 with a pulse ox of 100% on 2 L. Patient denies chest pain or shortness of breath. Patient denies nausea vomiting or diarrhea. Patient denies any urinary burning or frequency On 02/10/2024 patient was seen and examined on the medical floor he is alert and oriented x 3 in no apparent distress there is no fever or chills no headache or dizziness no chest pain no shortness of breath no cough no nausea or vomiting no abdominal pain no diarrhea no urinary symptoms. Patient is scheduled for MRI of the brain today, possible transfer back to [facility] tomorrow if stable Objective - Vital Signs Vital signs: Vital Signs Temp 97.8 F 02/10/24 15:00 Pulse 97 02/10/24 15:00 Resp 15 02/10/24 15:00 BP 121/82 02/10/24 15:00 Pulse Ox 94 L 02/10/24 15:00 FiO2 Intake & Output 02/09/24 02/10/24 02/10/24 18:59 06:59 18:59 Intake Total 236 236 Output Total 445 533 7470 Balance -170 -777 -263 Weight 104.78 kg Intake: Oral 236 236 Output: Urine 840 714 0036 Other: Voiding Method External Catheter External Catheter # Voids 3 - Exam Head normocephalic Neck supple Lungs clear to auscultation bilaterally no wheezing or crackles Heart irregular rythym. known afib Abdomen is soft nontender nondistended positive bowel sounds no hepa tosplenomegaly Extremities no edema. Bilateral lower extremity erythema Neuro alert and orientated to 3 - Labs CBC & Chem 7: 02/10/24 07:23 02/10/24 07:23 Labs: Abnormal Lab Results - Last 24 Hours (Table) 02/10/24 02/10/24 02/10/24 Range/Units 07:23 07:23 12:22 RBC 3.93 L (4.40-5.60) X 10*6/uL Hgb 9.7 L (13.0-17.0) g/dL Hct 31.1 L (39.6-50.0) % MCV 79.1 L (80.0-97.0) FL MCH 24.7 L (27.0-32.0) pg MCHC 31.2 L (32.0-37.0) g/dL RDW 23.7 H (11.5-14.5) % MPV 9.2 L (9.5-12.2) FL POC Glucose (mg/dL) 123 H (70-110) mg/dL Calcium 8.0 L (8.7-10.3) mg/dL Alkaline Phosphatase 127 H (41-126) U/L Total Protein 4.6 L (6.2-8.2) g/dL Albumin 2.3 L (3.8-4.9) g/dL Albumin/Globulin Ratio 1.00 L (1.60-3.17) Ratio 02/10/24 Range/Units 16:51 RBC (4.40-5.60) X 10*6/uL Hgb (13.0-17.0) g/dL Hct (39.6-50.0) % MCV (80.0-97.0) FL MCH (27.0-32.0) pg MCHC (32.0-37.0) g/dL RDW (11.5-14.5) % MPV (9.5-12.2) FL POC Glucose (mg/dL) 148 H (70-110) mg/dL Calcium (8.7-10.3) mg/dL Alkaline Phosphatase (41-126) U/L Total Protein (6.2-8.2) g/dL Albumin (3.8-4.9) g/dL Albumin/Globulin Ratio (1.60-3.17) Ratio Assessment and Plan Plan: 1. Episode of expressive aphasia possible TIA 2. History of recent new onset atrial fibrillation with RVR status post cardioversion. Patient is maintained on Eliquis. EKG completed this admission showing atrial fibrillation 3. History of chronic bilateral lower extremity lymphedema 4. History of COPD 5. History of CHF 6. History of morbid obesity 7. History of sleep apnea 8. History of hyperlipidemia 9. History of hypothyroidism 10. Diabetes mellitus type 2 DVT prophylaxis Eliquis. GI prophylaxis Protonix Cardiology and neurology services consulted MRI of the brain ordered per neurology Home meds reordered Repeat labs ordered
--- NOTE | 2024-02-10 17:22 | P.PN ---
Subjective Progress Note Date: 02/10/24 I am following-up with patient and he feels he is doing better. Denies any new neurological issues. Still pending MRI Brain. Objective - Vital Signs Vital signs: Vital Signs Temp 97.8 F 02/10/24 15:00 Pulse 97 02/10/24 15:00 Resp 15 02/10/24 15:00 BP 121/82 02/10/24 15:00 Pulse Ox 94 L 02/10/24 15:00 FiO2 Intake & Output 02/09/24 02/10/24 02/10/24 18:59 06:59 18:59 Intake Total 236 236 Output Total 981 886 9233 Balance -364 -150 -814 Weight 104.78 kg Intake: Oral 236 236 Output: Urine 001 604 5532 Other: Voiding Method External Catheter External Catheter # Voids 3 - Exam GENERAL: The patient is lying in bed and is not in acute distress. NEUROLOGICAL: Higher mental function: The patient is awake, alert, oriented to self, place and time. Patient is following commands. No aphasia and no neglect. Cranial nerves: The pupils are round, equal and reactive to light and accommodation. Visual lowry are full to confrontation throughout. Extraocular movement is intact no nystagmus is noted. Facial sensation is normal to touch throughout. The facial strength is normal throughout. Hearing is mildly decreased bilaterally to hand rub. Tongue is midline and moved [id number] without any difficulty. No dysarthria is noted. Shoulder shrug is normal bilaterally. Motor: The strength is 5 over 5 throughout. Normal tone and bulk. Cerebellum: Normal finger to nosebilaterally. Sensation: Sensation is normal to touch throughout. Reflexes (right/left): 2+ throughout. Plantars are downgoing bilaterally. Some of the workup during this hospital visit consisted of: TSH is 0.758. Magnesium is 1.5 Lipid panel: TG 101, Cholestrol 118, LDL 72 and HDL 24 TSH: 0.758 HbA1c: 10.2 CT of the head is reported as no acute bleed or mass effect. Mild age- appropriate atrophy. I personally reviewed the CT and agree there is no acute or subacute stroke Carotid duplex: reported as moderate narrowing of left ICA between 50-69% EKG is reported as atrial fibrillation. - Labs CBC & Chem 7: 02/10/24 07:23 02/10/24 07:23 Labs: Abnormal Lab Results - Last 24 Hours (Table) 02/10/24 02/10/24 02/10/24 Range/Units 07:23 07:23 12:22 RBC 3.93 L (4.40-5.60) X 10*6/uL Hgb 9.7 L (13.0-17.0) g/dL Hct 31.1 L (39.6-50.0) % MCV 79.1 L (80.0-97.0) FL MCH 24.7 L (27.0-32.0) pg MCHC 31.2 L (32.0-37.0) g/dL RDW 23.7 H (11.5-14.5) % MPV 9.2 L (9.5-12.2) FL POC Glucose (mg/dL) 123 H (70-110) mg/dL Calcium 8.0 L (8.7-10.3) mg/dL Alkaline Phosphatase 127 H (41-126) U/L Total Protein 4.6 L (6.2-8.2) g/dL Albumin 2.3 L (3.8-4.9) g/dL Albumin/Globulin Ratio 1.00 L (1.60-3.17) Ratio 02/10/24 Range/Units 16:51 RBC (4.40-5.60) X 10*6/uL Hgb (13.0-17.0) g/dL Hct (39.6-50.0) % MCV (80.0-97.0) FL MCH (27.0-32.0) pg MCHC (32.0-37.0) g/dL RDW (11.5-14.5) % MPV (9.5-12.2) FL POC Glucose (mg/dL) 148 H (70-110) mg/dL Calcium (8.7-10.3) mg/dL Alkaline Phosphatase (41-126) U/L Total Protein (6.2-8.2) g/dL Albumin (3.8-4.9) g/dL Albumin/Globulin Ratio (1.60-3.17) Ratio Assessment and Plan Assessment: This is a 73-year-old gentleman with history of atrial fibrillation on Eliquis who presents emergency department because of expressive aphasia and his symptoms lasted for 3 hours. Likely Transient Ischemic attack (TIA) and presented with expressive aphasia. Has atrial fibrillation and left ICA stenosis that is mild to moderate. Left ICA stenosis of 50-69% Ongoing Atrial fibrillation on eliquis Uncontrolled DM (HbA1c 10.2) Hypertension Hyperlipidemia Plan: Pending MRI of the brain. Per cardiology no need to repeat echo. He had one recently in begining of this month showed reduced left ventricular systolic function with apical hypokinesis. Enlarged right ventricle with pulmonary hypertension. Biatrial enlargement. Cardiology team is consulted for the A-fib. Patient was resumed on his home me dication of Eliquis 5 mg twice daily. Patient was given aspirin 325 mg once in the ED in addition to the Eliquis since the patient continued to have symptoms while on Eliquis I added aspirin 81 mg daily for secondary stroke prophylaxis Patient is on Lipitor 40 mg nightly vascular surgery team is consulted for carotid stenosis. I spoke with vascular surgeon (Dr. Talbert) and we agree that medical management and patient to follow-up with vascular surgery team for surveillance. Continue neurochecks Cardiac monitoring Speech therapy is consulted Will defer the rest of the medical management to primary and other specialist For DVT prophylaxis the patient is on Eliquis Upon discharge, recommend the patient to follow-up with neurologist as outpatient within 2 weeks. If MRI Brain is negative for any stroke the patient is clear from neurological perspective. Time with Patient: Less than 30
[2024-02-10 20:05] LABS: Glucose,Whole Blood 228 mg/dL (70-110)
[2024-02-10] MEDS: INSULIN ASPART (NovoLOG) 100 UNIT/ML VIAL SQ SCH (20:37)
[2024-02-11] MEDS ORDERED: ALBUTEROL NEBULIZED 2.5 MG/3 ML INHALATION PRN (05:25)
[2024-02-11 05:52] LABS: Glucose,Whole Blood 43 mg/dL (70-110)
[2024-02-11] MEDS: DEXTROSE 50% SYRINGE 50 ML IVP PRN (06:08)
[2024-02-11 06:11] LABS: Glucose,Whole Blood 31 mg/dL (70-110)
[2024-02-11 06:11] LABS: Glucose,Whole Blood 38 mg/dL (70-110)
[2024-02-11 06:14] LABS: Glucose,Whole Blood 151 mg/dL (70-110)
[2024-02-11 06:25] LABS: Glucose,Whole Blood 106 mg/dL (70-110)
[2024-02-11 06:40] LABS: Glucose,Whole Blood 99 mg/dL (70-110)
[2024-02-11 06:53] LABS: Glucose,Whole Blood 82 mg/dL (70-110)
[2024-02-11 07:03] LABS: Glucose,Whole Blood 102 mg/dL (70-110)
[2024-02-11] MEDS: DEXTROSE 5% IN WATER 1,000 ML IV SCH (09:11)
[2024-02-11 10:36] VITALS: BP 97/65; RESP 16; TEMP 97.5
[2024-02-11 12:02] VITALS: PULSE 64
--- NOTE | 2024-02-11 12:22 | P.DS ---
Providers Date of admission: 02/07/24 18:49 Expected date of discharge: 02/11/24 Attending physician: Aquilino Garber Consults: 02/07/24 18:51 Consult Physician Urgent Consulting Provider: Gordo Coley Consult Reason/Comments: TIA Do you want consulting provider notified?: Yes Consult Physician Urgent Consulting Provider: Don Duenas Consult Reason/Comments: a-fib/TIA Do you want consulting provider notified?: Yes 02/09/24 10:13 Consult Physician Routine Consulting Provider: Donny Elmore Consult Reason/Comments: carotid doppler Do you want consulting provider notified?: Yes Primary care physician: Aquilinoclarence Garber [facility] Course: Discharge diagnosis 1. Episode of expressive aphasia possible TIA 2. History of recent new onset atrial fibrillation with RVR status post cardioversion. Patient is maintained on Eliquis. EKG completed this admission showing atrial fibrillation 3. History of chronic bilateral lower extremity lymphedema 4. History of COPD 5. History of CHF 6. History of morbid obesity 7. History of sleep apnea 8. History of hyperlipidemia 9. History of hypothyroidism 10. Diabetes mellitus type 2 Hospital course Francisco Cao is a 73-year-old male patient who presented to the ER with concerns of expressive aphasia. Patient reports that he was at rehab facility and had just returned from PT and called his but was not able to get the words out which was concerning to the family. Patient reports symptoms only lasted a few minutes denies any other acute neurological symptoms. Patient has an extensive medical history including new onset A-fib in which she was cardioverted during recent hospitalization is maintained on Eliquis, COPD, diabetes mellitus, hyperlipidemia, prostate disorder, sleep apnea, thyroid disorder, chronic lower extremity lymphedema and morbid obesity. Head CT was completed in ER showing no acute bleed or mass effect. Mild age-appropriate a trophy. Chest x-ray completed showing no acute cardiopulmonary disease right pleural effusion seen on prior study has resolved. Lab work revealing UA negative. TSH 0.758, magnesium 1.5, creatinine 0.66 bun 19, white blood cell 6.6 and hemoglobin 11.7 at this time patient will be admitted cardiology and neurology services consulted On 02/09/2024 patient is alert and oriented x 3. Patient reports no further episodes of forgetfulness. Medications have been adjusted per cardiology services MRI has been ordered per neurology. Current vital signs temp 97.5, heart rate 85, respiratory rate 16, blood pressure 101/68 with a pulse ox of 100% on 2 L. Patient denies chest pain or shortness of breath. Patient denies nausea vomiting or diarrhea. Patient denies any urinary burning or frequency On 02/10/2024 patient was seen and examined on the medical floor he is alert and oriented x 3 in no apparent distress there is no fever or chills no headache or dizziness no chest pain no shortness of breath no cough no nausea or vomiting no abdominal pain no diarrhea no urinary symptoms. Patient is scheduled for MRI of the brain today, possible transfer back to [facility] tomorrow if stable On 02/11/2024 patient is alert and oriented x 3. MRI completed awaiting results. Patient to return to [facility] once MRI result is completed and neurology clearance. Patient did have episode of hypoglycemia this morning Lantus will be lowererd to 35 units. Patient to continue on Eliquis along with 81 mg of aspirin. Patient to follow-up outpatient with vascular surgery Patient Condition at Discharge: Stable Plan - Discharge Summary New Discharge Prescriptions: New Aspirin 81 mg PO DAILY tab Insulin Detemir (Levemir) [Levemir] 35 unit SQ HS each Metoprolol Tartrate [Lopressor] 50 mg PO BID tab HYDROcodone/APAP 10-325MG [[place] 10-325] 1 each PO Q6HR PRN 3 Days #12 tab PRN Reason: Pain Continue Tamsulosin [Flomax] 0.4 mg PO BID@0900,2100 Loperamide HCl [Imodium A-D] 2 - 4 mg PO QID PRN MDD 8mg PRN Reason: Diarrhea guaiFENesin [guaiFENesin Oral Solution] 200 mg PO Q4H PRN PRN Reason: Cough Na Phos,M-B/Na Phos,Di-Ba [Fleet Adult] 133 ml RECTAL DAILY PRN PRN Reason: Constipation bisacodyL [Dulcolax] 10 mg RECTAL DAILY PRN PRN Reason: Constipation INSULIN ASPART (NovoLOG) [NovoLOG (formulary)] See Protocol SQ AC- TID@07,11,1630 Magnesium Oxide [Mag-Ox] 400 mg PO BID@0800,1700 Bumetanide [BUMEX] 1 mg PO BID@0600,1400 Atorvastatin [Lipitor] 40 mg PO HS@2100 Spironolactone [Aldactone] 25 mg PO DAILY@0800 Magnesium Hydroxide [Milk of Magnesia Concentrate] 7,200 mg PO DAILY PRN PRN Reason: Constipation Hydrocortisone [Cortizone-10] 1 applic TOPICAL Q24H PRN PRN Reason: Wound Healing Albuterol Nebulized [Ventolin Nebulized] 2.5 mg INHALATION RT-QID@00,06,,18 Liquacel 30 ml PO BID@0800,1700 Apixaban [Eliquis] 5 mg PO BID@0800,1700 Collagenase [Santyl Ointment] 1 applic TOPICAL DAILY methIMAzole [Tapazole] 5 mg PO DAILY@0800 Pantoprazole [Protonix] 40 mg PO DAILY@0600 Melatonin 5 mg PO HS@2100 Dapagliflozin Propanediol [Farxiga] 10 mg PO DAILY@0800 Tums 750mg Chewable 750 mg PO Q8H PRN PRN Reason: acid reflux Discontinued carvediloL [Coreg] 25 mg PO BID@0800,1700 Insulin Glargine [Lantus Vial] 50 unit SQ HS@213 Acetaminophen-Codeine 300-30mg [Tylenol w/codeine #3] 1 tab PO Q6H PRN PRN Reason: Pain dilTIAZem HCL 30 mg PO QID@00,,, Sacubitril/Valsartan [Entresto 24 mg-26 mg Tablet] 2 tab PO BID@0900,2100 Discharge Medication List Tamsulosin [Flomax] 0.4 mg PO BID@0900,2100 11/17/17 [History] Albuterol Nebulized [Ventolin Nebulized] 2.5 mg INHALATION RT-QID@00,06,,18 02/07/24 [History] Apixaban [Eliquis] 5 mg PO BID@0800,1700 02/07/24 [History] Atorvastatin [Lipitor] 40 mg PO HS@2100 02/07/24 [History] Bumetanide [BUMEX] 1 mg PO BID@0600,1400 02/07/24 [History] Collagenase [Santyl Ointment] 1 applic TOPICAL DAILY 02/07/24 [History] Dapagliflozin Propanediol [Farxiga] 10 mg PO DAILY@0800 02/07/24 [History] Hydrocortisone [Cortizone-10] 1 applic TOPICAL Q24H PRN 02/07/24 [History] INSULIN ASPART (NovoLOG) [NovoLOG (formulary)] See Protocol SQ AC-TID@07,11,1630 02/07/24 [History] Liquacel 30 ml PO BID@0800,1700 02/07/24 [History] Loperamide HCl [Imodium A-D] 2 - 4 mg PO QID PRN MDD 8mg 02/07/24 [History] Magnesium Hydroxide [Milk of Magnesia Concentrate] 7,200 mg PO DAILY PRN 02/07/24 [History] Magnesium Oxide [Mag-Ox] 400 mg PO BID@0800,1700 02/07/24 [History] Melatonin 5 mg PO HS@2100 02/07/24 [History] Na Phos,M-B/Na Phos,Di-Ba [Fleet Adult] 133 ml RECTAL DAILY PRN 02/07/24 [History] Pantoprazole [Protonix] 40 mg PO DAILY@0600 02/07/24 [History] Spironolactone [Aldactone] 25 mg PO DAILY@0802/07/24 [History] Tums 750mg Chewable 750 mg PO Q8H PRN 02/07/24 [History] bisacodyL [Dulcolax] 10 mg RECTAL DAILY PRN 02/07/24 [History] guaiFENesin [guaiFENesin Oral Solution] 200 mg PO Q4H PRN 02/07/24 [History] methIMAzole [Tapazole] 5 mg PO DAILY@0802/07/24 [History] Aspirin 81 mg PO DAILY tab 02/11/24 [Rx] HYDROcodone/APAP 10-325MG [[place] 10-325] 1 each PO Q6HR PRN 3 Days #12 tab 02/11/24 [Rx] Insulin Detemir (Levemir) [Levemir] 35 unit SQ HS each 02/11/24 [Rx] Metoprolol Tartrate [Lopressor] 50 mg PO BID tab 02/11/24 [Rx] Follow up Appointment(s)/Referral(s): Aquilino Garber MD [Primary Care Provider] - 1-2 days Discharge Disposition: TRANSFER TO SNF/ECF
[2024-02-11 12:23] LABS: Glucose,Whole Blood 176 mg/dL (70-110)
--- NOTE | 2024-02-11 12:25 | P.PN ---
Subjective HISTORY OF PRESENT ILLNESS: This is a 73-year-old male with a past medical history significant for atrial fibrillation, congestive heart failure, COPD, and hyperlipidemia. Patient states he is scheduled to see a manufacturing maintenance technician on Wednesday. We have been asked to see the patient in consultation for A-fib and TIA. Patient examined at the bedside in [facility] ER. Patient was hospitalized at the beginning of the month and was found to have new onset atrial fibrillation. He was started on Eliquis at that time. Patient has been at [facility] for rehab. He states he finished PT yesterday and called his afterwards and was unable to find the words when speaking. He states all his symptoms have resolved. He denies chest pain or pressure. Denies SOB. Patient remains in atrial fibrillation with heart rate range between 589779 the time of examination DIAGNOSTICS: - EKG reveals atrial fibrillation with controlled ventricular rate. - Chest xray negative for acute process. - CT brain no acute bleed or mass effect. - Laboratory data: WBC 6.6. Hemoglobin 11.7. Platelet count 368. Sodium 134. Potassium 4.4. BUN 19. Creatinine 0.66. Magnesium 1.5. TSH 0.758. - Current home cardiac medications include Cardizem 30 mg 4 times a day, Entresto 24-26 mg 2 tablets twice a day, Eliquis 5 mg twice a day, carvedilol 25 mg twice a day, Bumex 1 mg twice a day, Farxiga 10 mg daily, Lipitor 40 mg at night, Aldactone 25 mg daily - Most recent echocardiogram obtained in January 2024 revealed ejection fraction 35 to 40%, severe pulmonary hypertension, mild to moderate tricuspid regurgitation - Cardiac catheterization history: Unknown 02/09/2024 Patient examined this morning at the bedside. Patient currently denies chest pain or pressure. He denies shortness of breath. Blood pressure stable at 101/60. Telemetry reveals atrial fibrillation [place] heart [place] [address]. Denies any further episodes of expressive aphasia. MRI is pending. February 10, 2024 Patient examined this morning the bedside. Patient currently denies chest pain or pressure. He denies shortness of breath. Blood pressure stable with reading of 120/72. Telemetry reveals atrial fibrillation with controlled ventricular rate. MRI remains pending. 02/11/2024 Patient examined this morning at bedside. Patient denies chest pain or pressure. He denies shortness of breath. MRI pending. PHYSICAL EXAM: VITAL SIGNS: Reviewed. GENERAL: Well-developed in no acute distress. HEENT: Head is normocephalic. Pupils are equal, round. Sclerae anicteric. Mucous membranes of the mouth are moist. Neck supple. No JVD or thyromegaly LUNGS: Respirations even and unlabored. Lungs essentially clear to auscultation bilaterally. HEART: Irregular rate and rhythm. S1 and S2 heard. ABDOMEN: Soft. Nondistended. Nontender. EXTREMITIES: Normal range of motion. No clubbing or cyanosis. Peripheral pulses intact. Minimal lower extremity edema NEUROLOGIC: Awake and alert. ASSESSMENT: Expressive aphasia, possible TIA, MRI pending Recently diagnosed atrial fibrillation, on Eliquis outpatient, currently AF RVR 140s Coronary artery calcifications, prior CT in December 2023 Cardiomyopathy, ejection fraction 35 to 40%, ischemic versus nonischemic, suspect tachycardia induced Chronic heart failure with reduced EF, currently euvolemic Hypertension Hyperlipidemia Diabetes COPD Chronic lymphedema Hypomagnesemia Left internal carotid artery stenosis, 50 to 69% PLAN: No need to repeat echocardiogram as this was performed in January 2024 Entresto discontinued due to soft blood pressures Continue anticoagulation with Eliquis Continue telemetry monitoring Patient is currently stable from a cardiac perspective Further recommendations pending patient course Nurse practitioner note has been reviewed by physician. Signing provider agrees with the documented findings, assessment, and plan of care documented by ROOM CLERK as a scribe. Objective - Vital Signs Vital signs: Vital Signs Temp 98.0 F 02/11/24 02:00 Pulse 124 H 02/11/24 05:32 Resp 18 02/11/24 02:00 BP 115/64 02/11/24 02:00 Pulse Ox 96 02/11/24 02:00 FiO2 Intake & Output 02/10/24 02/11/24 02/11/24 18:59 06:59 18:59 Intake Total 354 Output Total 1650 1250 Balance -1296 -1250 Weight 104.78 kg Intake: Oral 354 Output: Urine 1650 1250 Other: Voiding Method External Catheter External Catheter # Voids 1 - Labs CBC & Chem 7: 02/10/24 07:23 02/10/24 07:23 Labs: Abnormal Lab Results - Last 24 Hours (Table) 02/10/24 02/10/24 02/10/24 Range/Units 07:23 07:23 12:22 RBC 3.93 L (4.40-5.60) X 10*6/uL Hgb 9.7 L (13.0-17.0) g/dL Hct 31.1 L (39.6-50.0) % MCV 79.1 L (80.0-97.0) FL MCH 24.7 L (27.0-32.0) pg MCHC 31.2 L (32.0-37.0) g/dL RDW 23.7 H (11.5-14.5) % MPV 9.2 L (9.5-12.2) FL POC Glucose (mg/dL) 123 H (70-110) mg/dL Calcium 8.0 L (8.7-10.3) mg/dL Alkaline Phosphatase 127 H (41-126) U/L Total Protein 4.6 L (6.2-8.2) g/dL Albumin 2.3 L (3.8-4.9) g/dL Albumin/Globulin Ratio 1.00 L (1.60-3.17) Ratio 02/10/24 02/10/24 02/11/24 Range/Units 16:51 20:03 05:51 RBC (4.40-5.60) X 10*6/uL Hgb (13.0-17.0) g/dL Hct (39.6-50.0) % MCV (80.0-97.0) FL MCH (27.0-32.0) pg MCHC (32.0-37.0) g/dL RDW (11.5-14.5) % MPV (9.5-12.2) FL POC Glucose (mg/dL) 148 H 228 H 43 L* (70-110) mg/dL Calcium (8.7-10.3) mg/dL Alkaline Phosphatase (41-126) U/L Total Protein (6.2-8.2) g/dL Albumin (3.8-4.9) g/dL Albumin/Globulin Ratio (1.60-3.17) Ratio 02/11/24 02/11/24 02/11/24 Range/Units 06:07 06:09 06:12 RBC (4.40-5.60) X 10*6/uL Hgb (13.0-17.0) g/dL Hct (39.6-50.0) % MCV (80.0-97.0) FL MCH (27.0-32.0) pg MCHC (32.0-37.0) g/dL RDW (11.5-14.5) % MPV (9.5-12.2) FL POC Glucose (mg/dL) 31 L* 38 L* 151 H (70-110) mg/dL Calcium (8.7-10.3) mg/dL Alkaline Phosphatase (41-126) U/L Total Protein (6.2-8.2) g/dL Albumin (3.8-4.9) g/dL Albumin/Globulin Ratio (1.60-3.17) Ratio
--- NOTE | 2024-02-11 12:49 | MR ---
EXAMINATION TYPE: MR brain wo con DATE OF EXAM: 02/11/2024 12:30 PM CLINICAL INDICATION: Male, 73 years old with history of stroke, expressive aphasia; PHH, Expressive a phasia COMPARISON: 02/07/2024 . TECHNIQUE: Multi planar, multi sequence imaging was performed through the brain including: T1, T2, In version recovery, Diffusion weighted imaging, and gradient echo imaging. No gadolinium was given. FINDINGS: The palacio-white junctions, ventricular system, basal cisterns appear unremarkable. Scattered foci of high T2 signal intensity are seen within the periventricular white matter. Midline structures show n o abnormality. Diffusion-weighted imaging shows no evidence of restricted diffusion. The susceptibili ty weighted images do not reveal any evidence for micro-hemorrhage. The bone marrow signal is within normal limits. Paranasal sinuses and mastoid air cells: No significant paranasal sinus disease. Visualized orbits: Orbital contents are intact. IMPRESSION: 1. No evidence of intracranial mass or acute/subacute infarct. 2. Nonspecific white matter changes, likely secondary to small vessel ischemic disease.
[2024-02-11] MEDS ORDERED: INSULIN DETEMIR (LEVEMIR) 100 UNIT/ML SYR SQ SCH (21:00)
== END 2024-02-11 15:15 ==
LOC: EC 14:45 → 6NMEDSUR 18:49
PROVIDERS: ADMIT Internal Medicine; ATTEND Internal Medicine
DX: R47.01 Aphasia (principal); I65.22 Occlusion and stenosis of left carotid artery; D64.9 Anemia, unspecified; I87.2 Venous insufficiency (chronic) (peripheral); L89.629 Pressure ulcer of left heel, unspecified stage; E83.42 Hypomagnesemia; I89.0 Lymphedema, not elsewhere classified; E11.649 Type 2 diabetes mellitus with hypoglycemia without coma; I25.10 Atherosclerotic heart disease of native coronary artery without angina pectoris; I42.9 Cardiomyopathy, unspecified; I48.91 Unspecified atrial fibrillation; J44.9 Chronic obstructive pulmonary disease, unspecified; E78.5 Hyperlipidemia, unspecified; G47.30 Sleep apnea, unspecified; N40.0 Benign prostatic hyperplasia without lower urinary tract symptoms; E89.0 Postprocedural hypothyroidism; I11.0 Hypertensive heart disease with heart failure; I50.22 Chronic systolic (congestive) heart failure; E66.01 Morbid (severe) obesity due to excess calories; Z68.34 Body mass index [BMI] 34.0-34.9, adult; Z87.891 Personal history of nicotine dependence; Z79.01 Long term (current) use of anticoagulants; Z79.899 Other long term (current) drug therapy; Z79.84 Long term (current) use of oral hypoglycemic drugs; Z79.4 Long term (current) use of insulin; Z88.0 Allergy status to penicillin
CPT/HCPCS: 36415; 70450; 70551; 71045; 80053; 80061; 81003; 83036; 83735; 84443; 85025; 85610; 85730; 93005; 93880; 94640; 94760; 96361; 96365; 96366; 99285

== ENCOUNTER 2024-02-16 08:22 | Inpatient (IN) | payer MEDICARE ==
[2024-02-16 08:33] LABS: Glucose,Whole Blood 102 mg/dL (70-110)
--- NOTE | 2024-02-16 08:38 | ED ---
General Adult HPI - General Chief complaint: Recheck/Abnormal Lab/Rx Stated complaint: Low blood sugar hypotension Time Seen by Provider: 02/16/24 08:24 Source: patient, EMS, RN notes reviewed, old records reviewed Mode of arrival: EMS Limitations: no limitations - History of Present Illness Initial comments: 73-year-old male presents emergency department via EMS from [place] for evaluation of hypotension, hypoglycemia. Patient has been in the hospital recently for multiple reasons. Patient states he just feels tired, weak feeling he denies any chest pain or shortness of breath. He does admit that he is had a cough with phlegm but this has been ongoing he has been receiving albuterol. Patient states he has been working with physical therapy he is currently nonambulatory. Patient denies any recent infections denies any sores he does have urinary frequency he states he been eating and drinking well he is unsure if he received any of his medications this morning he has a known diabetic. - Related Data Home Medications Medication Instructions Recorded Confirmed Tamsulosin [Flomax] 0.4 mg PO BID@0900,2100 11/17/17 02/16/24 Albuterol Nebulized [Ventolin 2.5 mg INHALATION RT-Q6H 02/07/24 02/16/24 Nebulized] Apixaban [Eliquis] 5 mg PO BID@0800,1700 02/07/24 02/16/24 Atorvastatin [Lipitor] 40 mg PO HS@209902/07/24 02/16/24 Bumetanide [BUMEX] 1 mg PO BID@0600,1400 02/07/24 02/16/24 Collagenase [Santyl Ointment] 1 applic TOPICAL DAILY 02/07/24 02/16/24 Dapagliflozin Propanediol [Farxiga] 10 mg PO DAILY@0800 02/07/24 02/16/24 Hydrocortisone [Cortizone-10] 1 applic TOPICAL Q24H PRN 02/07/24 02/16/24 INSULIN ASPART (NovoLOG) [NovoLOG See Protocol SQ AC-TID 02/07/24 02/16/24 (formulary)] Liquacel 30 ml PO BID@0800,1700 02/07/24 02/16/24 Loperamide HCl [Imodium A-D] 2 - 4 mg PO QID PRN MDD 8mg 02/07/24 02/16/24 Magnesium Hydroxide [Milk of 7,200 mg PO DAILY PRN 02/07/24 02/16/24 Magnesia Concentrate] Magnesium Oxide [Mag-Ox] 400 mg PO BID@0800,1700 02/07/24 02/16/24 Melatonin 5 mg PO HS@2100 02/07/24 02/16/24 Na Phos,M-B/Na Phos,Di-Ba [Fleet 133 ml RECTAL DAILY PRN 02/07/24 02/16/24 Adult] Pantoprazole [Protonix] 40 mg PO DAILY@0600 02/07/24 02/16/24 Spironolactone [Aldactone] 25 mg PO DAILY@0800 02/07/24 02/16/24 Tums 750mg Chewable 750 mg PO Q8H PRN 02/07/24 02/16/24 bisacodyL [Dulcolax] 10 mg RECTAL DAILY PRN 02/07/24 02/16/24 guaiFENesin [guaiFENesin Oral 200 mg PO Q4H PRN 02/07/24 02/16/24 Solution] methIMAzole [Tapazole] 5 mg PO DAILY@0800 02/07/24 02/16/24 Aspirin 81 mg PO DAILY@0800 02/16/24 02/16/24 HYDROcodone/APAP 10-325MG [[place] 1 tab PO Q6HR PRN 02/16/24 02/16/24 10-325] Metoprolol Tartrate [Lopressor] 50 mg PO BID@0800,1700 02/16/24 02/16/24 Previous Rx's Medication Instructions Recorded Insulin Detemir (Levemir) [Levemir] 35 unit SQ HS each 02/11/24 Allergies Allergy/AdvReac Type Severity Reaction Status Date / Time adhesive Allergy BLISTERING Verified 02/16/24 09:54 RASH amoxicillin Allergy Rash/Hives Verified 02/16/24 09:54 Penicillins Allergy Rash/Hives Verified 02/16/24 09:54 pollen extracts Allergy RHINITIS, Verified 02/16/24 09:54 SORE THROAT Review of Systems ROS Statement: Those systems with pertinent positive or pertinent negative responses have been documented in the HPI. ROS Other: All systems not noted in ROS Statement are negative. Past Medical History Past Medical History: Atrial Fibrillation, Heart Failure, COPD, Diabetes Mellitus, Eye Disorder, Hyperlipidemia, Hypertension, Prostate Disorder, Sleep Apnea/CPAP/BIPAP, Thyroid Disorder Additional Past Medical History / Comment(s): HX PVC'S. MILD COPD. ANEMIA. HX KIDNEY STONES. BPH. HAD DIABETIC RETINOPATHY TX ON EYES. HAS HAD PICC LINE IN PAST, NOW OUT. CHRONIC BACK AND KNEE PAIN, lymphedema bilateral legs History of Any Multi-Drug Resistant Organisms: None Reported Past Surgical History: Orthopedic Surgery Additional Past Surgical History / Comment(s): RT THYROIDECTOMY. MASS FROM BACK, FATTY TUMOR. NASAL MASS REMOVED. LASER EYES, INTRAOCULAR LENS. WOUND ON RT FOOT I&D. LEFT KNEE ARTHROSCOPY, multiple CYST REMOVED FROM TAILBONE Past Anesthesia/Blood Transfusion Reactions: Previous Problems w/ Anesthesia Additional Past Anesthesia/Blood Transfusion Reaction / Comment(s): OCC TAKES LONG TIME TO AWAKEN. Past Psychological History: No Psychological Hx Reported Smoking Status: Former smoker Past Alcohol Use History: None Reported Past Drug Use History: None Reported - Past Family History Mother Family Medical History: COPD Father Family Medical History: Diabetes Mellitus Additional Family Medical History / Comment(s): heart failure General Exam Limitations: no limitations General appearance: alert, in no apparent distress Head exam: Present: atraumatic, normocephalic, normal inspection Eye exam: Present: normal appearance, PERRL, EOMI. Absent: scleral icterus, conjunctival injection, periorbital swelling ENT exam: Present: normal exam, normal oropharynx, mucous membranes moist Neck exam: Present: normal inspection, full ROM. Absent: tenderness, mening ismus, lymphadenopathy Respiratory exam: Present: normal lung sounds bilaterally. Absent: respiratory distress, wheezes, rales, rhonchi, stridor Cardiovascular Exam: Present: normal rhythm, bradycardia, normal heart sounds. Absent: systolic murmur, diastolic murmur, rubs, gallop, clicks GI/Abdominal exam: Present: soft, normal bowel sounds. Absent: distended, tenderness, guarding, rebound, rigid Neurological exam: Present: alert, oriented X3 Course Vital Signs 02/16/24 02/16/24 02/16/24 08:26 09:01 09:42 Temperature 97.0 F L Pulse Rate 47 L 112 H 87 Respiratory 18 18 Rate Blood Pressure 96/72 88/47 92/48 O2 Sat by Pulse 98 97 97 Oximetry 02/16/24 10:00 Temperature Pulse Rate 74 Respiratory 16 Rate Blood Pressure 82/55 O2 Sat by Pulse 95 Oximetry EKG Findings - EKG Comments: EKG Findings:: EKG performed at 9: 01 A-fib with a rate of 85 QRS 131 QT/QTc 449/492 - EKG Results: EKG: interpreted by DEVORA Medical Decision Making - Medical Decision Making Was pt. sent in by a medical professional or institution (, RAYMUNDO, CEMENT MASON APPRENTICE, urgent care, hospital, or senior living...) When possible be specific @ -No Did you speak to anyone other than the patient for history (EMS, parent, family, police, friend...)? What history was obtained from this source @ -No Did you review nursing and triage notes (agree or disagree)? Why? @ -I reviewed and agree with nursing and triage notes Were old charts reviewed (outside hosp., previous admission, EMS record, old EKG, old radiological studies, urgent care reports/EKG's, senior living records)? Report findings @ -No old charts were reviewed Differential Diagnosis (chest pain, altered mental status, abdominal pain women, abdominal pain men, vaginal bleeding, weakness, fever, dyspnea, syncope, head ache, dizziness, GI bleed, back pain, seizure, CVA, palpatations, mental health, musculoskeletal)? @ -Differential Weakness: Hypoglycemia, shock, sepsis, hyponatremia, anemia, infection, MD, ETOH, adverse medicine reaction, overdose, stroke, this is not meant to be an all-inclusive list. EKG interpreted by me (3pts min.). @ -As above X-rays interpreted by me (1pt min.). @ -Chest shows small bilateral pleural effusions CT interpreted by me (1pt min.). @ -None done U/S interpreted by me (1pt. min.). @ -None done What testing was considered but not performed or refused? (CT, X-rays, U/S, labs)? Why? @ -None What meds were considered but not given or refused? Why? @ -None Did you discuss the management of the patient with other professionals (professionals i.e. RAYMUNDO Nam, CEMENT MASON APPRENTICE, lab, RT, psych nurse, social work msw, picking belt operator, teacher, guest services officer, cyanide case hardener)? Give summary @ -Dr. Garber for admission Was smoking cessation discussed for >3mins.? @ -No Was critical care preformed (if so, how long)? @ -No Were there social determinants of health that impacted care today? How? (Homelessness, low income, unemployed, alcoholism, drug addiction, transportation, low edu. Level, literacy, decrease access to med. care, [facility], rehab)? @ -No Was there de-escalation of care discussed even if they declined (Discuss DNR or withdrawal of care, Hospice)? DNR status @ -No What co-morbidities impacted this encounter? (DM, HTN, Smoking, COPD, CAD, Cancer, CVA, ARF, Chemo, Hep., AIDS, mental health diagnosis, sleep apnea, morbid obesity)? @ -[A-fib, CHF, CAD Was patient admitted / discharged? Hospital course, mention meds given and route, prescriptions, significant lab abnormalities, going to OR and other pertinent info. @ -Admitted patient presented for hypoglycemia and hypotension. Patient has no obvious source of infection leg wound that they have been dealing with. Patient was given dose of antibiotics blood cultures were drawn. Patient will monitor overnight Undiagnosed new problem with uncertain prognosis? @ -No Drug Therapy requiring intensive monitoring for toxicity (Heparin, Nitro, Insulin, Cardizem)? @ -No Were any procedures done? @ -No Diagnosis/symptom? @ -Hypotension, hypoglycemia, weakness, leg wound Acute, or Chronic, or Acute on Chronic? @ -Acute Uncomplicated (without systemic symptoms) or Complicated (systemic symptoms)? @ -complicated Side effects of treatment? @ -No Exacerbation, Progression, or Severe Exacerbation? @ -No Poses a threat to life or bodily function? How? (Chest pain, USA, MD, pneumonia, PE, COPD, DKA, ARF, appy, cholecystitis, CVA, Diverticulitis, Homicidal, Suicidal, threat to staff... and all critical care pts) @ -No - Lab Data Result diagrams: 02/16/24 08:56 02/16/24 08:56 Lab Results 02/16/24 02/16/24 02/16/24 Range/Units 08:32 08:56 08:56 WBC 13.3 H (3.8-10.6) k/uL RBC 4.42 (4.30-5.90) m/uL Hgb 11.4 L (13.0-17.5) gm/dL Hct 35.7 L (39.0-53.0) % MCV 80.7 (80.0-100.0) fL MCH 25.7 (25.0-35.0) pg MCHC 31.9 (31.0-37.0) g/dL RDW 22.0 H (11.5-15.5) % Plt Count 334 (150-450) k/uL MPV 7.5 Neutrophils % 86 % Lymphocytes % 7 % Monocytes % 5 % Eosinophils % 2 % Basophils % 1 % Neutrophils # 11.4 H (1.3-7.7) k/uL Lymphocytes # 1.0 (1.0-4.8) k/uL Monocytes # 0.6 (0-1.0) k/uL Eosinophils # 0.2 (0-0.7) k/uL Basophils # 0.1 (0-0.2) k/uL Hypochromasia Slight Anisocytosis Moderate Microcytosis Slight PT 13.5 H (10.0-12.5) sec INR 1.3 H (<1.2) APTT 39.3 H (22.0-30.0) sec Sodium (137-145) mmol/L Potassium (3.5-5.1) mmol/L Chloride (98-107) mmol/L Carbon Dioxide (22-30) mmol/L Anion Gap mmol/L BUN (9-20) mg/dL Creatinine (0.66-1.25) mg/dL Est GFR (CKD-EPI)AfAm (>60 ml/min/1.73 sqM) Est GFR (CKD-EPI)NonAf (>60 ml/min/1.73 sqM) Glucose (74-99) mg/dL POC Glucose (mg/dL) 102 (70-110) mg/dL POC Glu Digital Media Director ID Miguel A Dick Plasma Lactic Acid Juan Carlos (0.7-2.0) mmol/L Calcium (8.4-10.2) mg/dL Magnesium (1.6-2.3) mg/dL Total Bilirubin (0.2-1.3) mg/dL AST (17-59) U/L ALT (4-49) U/L Alkaline Phosphatase (38-126) U/L Troponin I (0.000-0.034) ng/mL NT-Pro-B Natriuret Pep pg/mL Total Protein (6.3-8.2) g/dL Albumin (3.5-5.0) g/dL Urine Color Urine Appearance (Clear) Urine pH (5.0-8.0) Ur Specific [place] (1.001-1.035) Urine Protein (Negative) Urine Glucose (UA) (Negative) Urine Ketones (Negative) Urine Blood (Negative) Urine Nitrite (Negative) Urine Bilirubin (Negative) Urine Urobilinogen (<2.0) mg/dL Ur Leukocyte Esterase (Negative) 02/16/24 02/16/24 02/16/24 Range/Units 08:56 08:56 08:56 WBC (3.8-10.6) k/uL RBC (4.30-5.90) m/uL Hgb (13.0-17.5) gm/dL Hct (39.0-53.0) % MCV (80.0-100.0) fL MCH (25.0-35.0) pg MCHC (31.0-37.0) g/dL RDW (11.5-15.5) % Plt Count (150-450) k/uL MPV Neutrophils % % Lymphocytes % % Monocytes % % Eosinophils % % Basophils % % Neutrophils # (1.3-7.7) k/uL Lymphocytes # (1.0-4.8) k/uL Monocytes # (0-1.0) k/uL Eosinophils # (0-0.7) k/uL Basophils # (0-0.2) k/uL Hypochromasia Anisocytosis Microcytosis PT (10.0-12.5) sec INR (<1.2) APTT (22.0-30.0) sec Sodium 136 L (137-145) mmol/L Potassium 3.9 (3.5-5.1) mmol/L Chloride 100 (98-107) mmol/L Carbon Dioxide 32 H (22-30) mmol/L Anion Gap 4 mmol/L BUN 23 H (9-20) mg/dL Creatinine 0.79 (0.66-1.25) mg/dL Est GFR (CKD-EPI)AfAm >90 (>60 ml/min/1.73 sqM) Est GFR (CKD-EPI)NonAf 88 (>60 ml/min/1.73 sqM) Glucose 102 H (74-99) mg/dL POC Glucose (mg/dL) (70-110) mg/dL POC Glu Digital Media Director ID Plasma Lactic Acid Juan [place] 1.3 (0.7-2.0) mmol/L Calcium 8.8 (8.4-10.2) mg/dL Magnesium 2.0 (1.6-2.3) mg/dL Total Bilirubin 1.2 (0.2-1.3) mg/dL AST 26 (17-59) U/L ALT 21 (4-49) U/L Alkaline Phosphatase 150 H (38-126) U/L Troponin I <0.012 (0.000-0.034) ng/mL NT-Pro-B Natriuret Pep 1840 pg/mL Total Protein 5.4 L (6.3-8.2) g/dL Albumin 2.5 L (3.5-5.0) g/dL Urine Color Urine Appearance (Clear) Urine pH (5.0-8.0) Ur Specific [place] (1.001-1.035) Urine Protein (Negative) Urine Glucose (UA) (Negative) Urine Ketones (Negative) Urine Blood (Negative) Urine Nitrite (Negative) Urine Bilirubin (Negative) Urine Urobilinogen (<2.0) mg/dL Ur Leukocyte Esterase (Negative) 02/16/24 02/16/24 Range/Units 09:46 10:45 WBC (3.8-10.6) k/uL RBC (4.30-5.90) m/uL Hgb (13.0-17.5) gm/dL Hct (39.0-53.0) % MCV (80.0-100.0) fL MCH (25.0-35.0) pg MCHC (31.0-37.0) g/dL RDW (11.5-15.5) % Plt Count (150-450) k/uL MPV Neutrophils % % Lymphocytes % % Monocytes % % Eosinophils % % Basophils % % Neutrophils # (1.3-7.7) k/uL Lymphocytes # (1.0-4.8) k/uL Monocytes # (0-1.0) k/uL Eosinophils # (0-0.7) k/uL Basophils # (0-0.2) k/uL Hypochromasia Anisocytosis Microcytosis PT (10.0-12.5) sec INR (<1.2) APTT (22.0-30.0) sec Sodium (137-145) mmol/L Potassium (3.5-5.1) mmol/L Chloride (98-107) mmol/L Carbon Dioxide (22-30) mmol/L Anion Gap mmol/L BUN (9-20) mg/dL Creatinine (0.66-1.25) mg/dL Est GFR (CKD-EPI)AfAm (>60 ml/min/1.73 sqM) Est GFR (CKD-EPI)NonAf (>60 ml/min/1.73 sqM) Glucose (74-99) mg/dL POC Glucose (mg/dL) 138 H (70-110) mg/dL POC Glu Digital Media Director ID September Plasma Lactic Acid Juan Carlos (0.7-2.0) mmol/L Calcium (8.4-10.2) mg/dL Magnesium (1.6-2.3) mg/dL Total Bilirubin (0.2-1.3) mg/dL AST (17-59) U/L ALT (4-49) U/L Alkaline Phosphatase (38-126) U/L Troponin I (0.000-0.034) ng/mL NT-Pro-B Natriuret Pep pg/mL Total Protein (6.3-8.2) g/dL Albumin (3.5-5.0) g/dL Urine Color Light Yellow Urine Appearance Clear (Clear) Urine pH 8.0 (5.0-8.0) Ur Specific [place] 1.010 (1.001-1.035) Urine Protein Negative (Negative) Urine Glucose (UA) 3+ H (Negative) Urine Ketones Negative (Negative) Urine Blood Negative (Negative) Urine Nitrite Negative (Negative) Urine Bilirubin Negative (Negative) Urine Urobilinogen <2.0 (<2.0) mg/dL Ur Leukocyte Esterase Negative (Negative) Disposition Clinical Impression: Hypotension, Hypoglycemia, A-fib, Wound of lower extremity Disposition: ADMITTED IP TO THIS [facility] Condition: Poor Referrals: Aquilino Garber MD [Primary Care Provider] - 1-2 days Time of Disposition: 11:21
[2024-02-16] MEDS: SODIUM CHLORIDE 0.9% 500 ML 500 ML IV STA (08:58)
[2024-02-16 09:20] LABS: Anisocytosis Moderate; Basophils # (A) 0.1 k/uL (0-0.2); Basophils % (A) 1 %; Eosinophils # (A) 0.2 k/uL (0-0.7); Eosinophils % (A) 2 %; HCT 35.7 % (39.0-53.0); HGB 11.4 gm/dL (13.0-17.5); Hypochromasia Slight; Lymphocytes % (A) 7 %; MCH 25.7 pg (25.0-35.0); MCHC 31.9 g/dL (31.0-37.0); MCV 80.7 fL (80.0-100.0); Mean Platelet Volume 7.5; Microcytosis Slight; Monocytes # (A) 0.6 k/uL (0-1.0); Monocytes % (A) 5 %; Neutrophils # (A) 11.4 k/uL (1.3-7.7); Neutrophils % (A) 86 %; Platelet Count 334 k/uL (150-450); RBC 4.42 m/uL (4.30-5.90); WBC 13.3 k/uL (3.8-10.6)
[2024-02-16 09:37] LABS: ALT 21 U/L (4-49); AST 26 U/L (17-59); African American GFR (CKD) >90 (>60 ml/min/1.73 sqM); Albumin 2.5 g/dL (3.5-5.0); Alkaline Phosphatase 150 U/L (38-126); Anion Gap 4 mmol/L; Blood Urea Nitrogen 23 mg/dL (9-20); Calcium 8.8 mg/dL (8.4-10.2); Carbon Dioxide 32 mmol/L (22-30); Chloride 100 mmol/L (98-107); Glucose 102 mg/dL (74-99); Non-African American GFR(CKD) 88 (>60 ml/min/1.73 sqM); Potassium 3.9 mmol/L (3.5-5.1); Sodium 136 mmol/L (137-145); Total Bilirubin 1.2 mg/dL (0.2-1.3); Total Protein 5.4 g/dL (6.3-8.2)
--- NOTE | 2024-02-16 09:37 | XR ---
EXAMINATION TYPE: XR chest 2V DATE OF EXAM: 02/16/2024 COMPARISON: 02/07/2024 TECHNIQUE: PA and lateral views submitted. HISTORY: Weakness FINDINGS: Small bilateral pleural effusion most noted on lateral view. Hypertrophic degenerative changes spine and mild cardiomegaly. No pneumothorax. Arthropathy of the shoulders. No pulmonary edema. Underlying COPD. Right hilum prominent. IMPRESSION: 1. Bibasilar atelectasis favored over infiltrate with small bilateral pleural effusions. No overt pul monary edema. 2. Prominent right hilum. Consider short-term follow-up CT chest.
[2024-02-16 09:39] LABS: INR 1.3 (<1.2); Partial Thromboplastin Time 39.3 sec (22.0-30.0); Prothrombin Time 13.5 sec (10.0-12.5)
[2024-02-16 09:45] LABS: NT-Pro-B-Type Natriuretic Pept 1840 pg/mL
[2024-02-16 09:48] LABS: Glucose,Whole Blood 138 mg/dL (70-110)
[2024-02-16] MEDS: SODIUM CHLORIDE 0.9% 500 ML 500 ML IV ONE (10:46)
[2024-02-16 10:56] LABS: Appearance,Urine Clear (Clear); Bilirubin,Urine Negative (Negative); Blood,Urine Negative (Negative); Color,Urine Light Yellow; Glucose,Urine (UA) 3+ (Negative); Ketones,Urine Negative (Negative); Leukocyte Esterase,Urine Negative (Negative); Nitrite,Urine Negative (Negative); Protein,Urine Negative (Negative); Urobilinogen,Urine <2.0 mg/dL (<2.0)
[2024-02-16] MEDS ORDERED: NA PHOS,M-B/NA PHOS,DI-BA 133 ML ENEMA RECTAL PRN ×2 (11:21→13:51)
[2024-02-16] MEDS ORDERED: ONDANSETRON 4 MG/2 ML VIAL IVP PRN (11:21)
[2024-02-16] MEDS ORDERED: NALOXONE 0.4 MG/ML 1 ML VIAL IV PRN (11:21)
[2024-02-16] MEDS: HYDROcodone/APAP 5-325MG 1 EACH TAB PO STA (12:05)
[2024-02-16 13:15] LABS: Glucose,Whole Blood 85 mg/dL (70-110)
[2024-02-16] MEDS ORDERED: DEXTROSE 50% SYRINGE 50 ML IVP PRN ×2 (13:34)
[2024-02-16] MEDS ORDERED: guaiFENesin SYRUP 100MG/5ML 200 MG/10 ML CUP PO PRN (13:51)
[2024-02-16] MEDS ORDERED: HYDROcodone/APAP 10-325MG 1 EACH TAB PO PRN (13:51)
--- NOTE | 2024-02-16 14:21 | P.HPIM ---
History of Present Illness H&P Date: 02/16/24 Francisco Cao is a a 73 year old male patient who presented to the ER from [facility] with complaints of weakness and low blood sugar. Patient also was found to have hypotension. Patient was recently admitted and treated for TIA and A- fib. Patient denies any chest pain or shortness of breath. Patient has chronic lower extremity lymphedema with open wound to left heel. Patient denies any nausea vomiting or diarrhea. During last admission Lantus was decreased but patient still having episodes of low blood sugar. Patient has past medical history of atrial fibrillation, CHF, COPD, diabetes mellitus, eye disorder, hyperlipidemia, hypertension, prostate disorder, thyroid disorder and chronic lymphedema to bilateral legs. Chest x-ray completed showing bibasilar atelectasis favored over infiltrate with small bilateral pleural effusion no overt pulmonary edema prominent right helium consider short-term follow-up CT of chest. EKG completed showing A-fib. Lab work revealing negative troponin creatinine 0.79 bun 23. White blood cell 13.3, hemoglobin 11.4. UA negative. At this time patient will be admitted long-acting insulin DC'd patient maintained on sliding scale coverage. Will consult cardiology services for A- fib and hypotension. Will also consult infectious disease for lower extremity wound. Blood culture ordered at this time patient denies chest pain or shortness of breath. Patient denies nausea vomiting or diarrhea. Patient denies any urinary burning or frequency Review of Systems Please refer to HPI otherwise unremarkable Past Medical History Past Medical History: Atrial Fibrillation, Heart Failure, COPD, Diabetes Mellitus, Eye Disorder, Hyperlipidemia, Hypertension, Prostate Disorder, Sleep Apnea/CPAP/BIPAP, Thyroid Disorder Additional Past Medical History / Comment(s): HX PVC'S. MILD COPD. ANEMIA. HX KIDNEY STONES. BPH. HAD DIABETIC RETINOPATHY TX ON EYES. HAS HAD PICC LINE IN PAST, NOW OUT. CHRONIC BACK AND KNEE PAIN, lymphedema bilateral legs History of Any Multi-Drug Resistant Organisms: None Reported Past Surgical History: Orthopedic Surgery Additional Past Surgical History / Comment(s): RT THYROIDECTOMY. MASS FROM BACK, FATTY TUMOR. NASAL MASS REMOVED. LASER EYES, INTRAOCULAR LENS. WOUND ON RT FOOT I&D. LEFT KNEE ARTHROSCOPY, multiple CYST REMOVED FROM TAILBONE Past Anesthesia/Blood Transfusion Reactions: Previous Problems w/ Anesthesia Additional Past Anesthesia/Blood Transfusion Reaction / Comment(s): OCC TAKES LONG TIME TO AWAKEN. Past Psychological History: No Psychological Hx Reported Smoking Status: Former smoker Past Alcohol Use History: None Reported Past Drug Use History: None Reported - Past Family History Mother Family Medical History: COPD Father Family Medical History: Diabetes Mellitus Additional Family Medical History / Comment(s): heart failure Medications and Allergies Home Medications Medication Instructions Recorded Confirmed Type Tamsulosin [Flomax] 0.4 mg PO BID@0900,2100 11/17/17 02/16/24 History Albuterol Nebulized [Ventolin 2.5 mg INHALATION RT-Q6H 02/07/24 02/16/24 History Nebulized] Apixaban [Eliquis] 5 mg PO BID@0800,1700 02/07/24 02/16/24 History Atorvastatin [Lipitor] 40 mg PO HS@209902/07/24 02/16/24 History Bumetanide [BUMEX] 1 mg PO BID@0600,1400 02/07/24 02/16/24 History Collagenase [Santyl Ointment] 1 applic TOPICAL DAILY 02/07/24 02/16/24 History Dapagliflozin Propanediol [Farxiga] 10 mg PO DAILY@0800 02/07/24 02/16/24 History Hydrocortisone [Cortizone-10] 1 applic TOPICAL Q24H PRN 02/07/24 02/16/24 History INSULIN ASPART (NovoLOG) [NovoLOG See Protocol SQ AC-TID 02/07/24 02/16/24 History (formulary)] Liquacel 30 ml PO BID@0800,1700 02/07/24 02/16/24 History Loperamide HCl [Imodium A-D] 2 - 4 mg PO QID PRN MDD 8mg 02/07/24 02/16/24 History Magnesium Hydroxide [Milk of 7,200 mg PO DAILY PRN 02/07/24 02/16/24 History Magnesia Concentrate] Magnesium Oxide [Mag-Ox] 400 mg PO BID@0800,1700 02/07/24 02/16/24 History Melatonin 5 mg PO HS@209902/07/24 02/16/24 History Na Phos,M-B/Na Phos,Di-Ba [Fleet 133 ml RECTAL DAILY PRN 02/07/24 02/16/24 History Adult] Pantoprazole [Protonix] 40 mg PO DAILY@0600 02/07/24 02/16/24 History Spironolactone [Aldactone] 25 mg PO DAILY@79902/07/24 02/16/24 History Tums 750mg Chewable 750 mg PO Q8H PRN 02/07/24 02/16/24 History bisacodyL [Dulcolax] 10 mg RECTAL DAILY PRN 02/07/24 02/16/24 History guaiFENesin [guaiFENesin Oral 200 mg PO Q4H PRN 02/07/24 02/16/24 History Solution] methIMAzole [Tapazole] 5 mg PO DAILY@79902/07/24 02/16/24 History Insulin Detemir (Levemir) [Levemir] 35 unit SQ HS each 02/11/24 02/16/24 Rx Aspirin 81 mg PO DAILY@79902/16/24 02/16/24 History HYDROcodone/APAP 10-325MG [[place] 1 tab PO Q6HR PRN 02/16/24 02/16/24 History 10-325] Metoprolol Tartrate [Lopressor] 50 mg PO BID@0800,1700 02/16/24 02/16/24 History Allergies Allergy/AdvReac Type Severity Reaction Status Date / Time adhesive Allergy BLISTERING Verified 02/16/24 09:54 RASH amoxicillin Allergy Rash/Hives Verified 02/16/24 09:54 Penicillins Allergy Rash/Hives Verified 02/16/24 09:54 pollen extracts Allergy RHINITIS, Verified 02/16/24 09:54 SORE THROAT Physical Exam Vitals: Vital Signs Temp Pulse Resp BP Pulse Ox 02/16/24 12:00 86 18 96/60 95 02/16/24 10:00 74 16 82/55 95 02/16/24 09:42 87 18 92/48 97 02/16/24 09:01 112 H 88/47 97 02/16/24 08:26 97.0 F L 47 L 18 96/72 98 Intake and Output 02/15/24 02/16/24 02/16/24 22:59 06:59 14:59 Output Total 300 Balance -300 Output: Urine 300 Straight 300 Other: Weight 100.244 kg Head normocephalic Neck supple Lungs clear to auscultation bilaterally no wheezing or crackles Heart irregular heart rate known A-fib Abdomen is soft nontender nondistended positive bowel sounds no hepatosplenomegaly Extremities bilateral lower extremity lymphedema. Left heel ulcer Neuro alert and orientated to 3 Results CBC & Chem 7: 02/16/24 08:56 02/16/24 08:56 Labs: Abnormal Lab Results - Last 24 Hours (Table) 02/16/24 02/16/24 02/16/24 Range/Units 08:56 08:56 08:56 WBC 13.3 H (3.8-10.6) k/uL Hgb 11.4 L (13.0-17.5) gm/dL Hct 35.7 L (39.0-53.0) % RDW 22.0 H (11.5-15.5) % Neutrophils # 11.4 H (1.3-7.7) k/uL PT 13.5 H (10.0-12.5) sec INR 1.3 H (<1.2) APTT 39.3 H (22.0-30.0) sec Sodium 136 L (137-145) mmol/L Carbon Dioxide 32 H (22-30) mmol/L BUN 23 H (9-20) mg/dL Glucose 102 H (74-99) mg/dL POC Glucose (mg/dL) (70-110) mg/dL Alkaline Phosphatase 150 H (38-126) U/L Total Protein 5.4 L (6.3-8.2) g/dL Albumin 2.5 L (3.5-5.0) g/dL Urine Glucose (UA) (Negative) 02/16/24 02/16/24 Range/Units 09:46 10:45 WBC (3.8-10.6) k/uL Hgb (13.0-17.5) gm/dL Hct (39.0-53.0) % RDW (11.5-15.5) % Neutrophils # (1.3-7.7) k/uL PT (10.0-12.5) sec INR (<1.2) APTT (22.0-30.0) sec Sodium (137-145) mmol/L Carbon Dioxide (22-30) mmol/L BUN (9-20) mg/dL Glucose (74-99) mg/dL POC Glucose (mg/dL) 138 H (70-110) mg/dL Alkaline Phosphatase (38-126) U/L Total Protein (6.3-8.2) g/dL Albumin (3.5-5.0) g/dL Urine Glucose (UA) 3+ H (Negative) Assessment and Plan Assessment: 1. Hypoglycemia. Long-acting insulin held sliding scale added 2. Hypotension. Cardiology services consulted parameter set to cardiac medication 3. Left heel ulcer. Infectious disease services consulted 4. History of recent new onset atrial fibrillation status post cardioversion. Patient is back into atrial fibrillation maintained on Eliquis 5. History of COPD 6. History of chronic bilateral lower extremity lymphedema 7. History of CHF 8. History of morbid obesity 9. History of hyperlipidemia 10. History of hypothyroidism 11. History of diabetes mellitus type 2 DVT prophylaxis Eliquis. GI prophylaxis Protonix Cardiology services consulted Infectious disease services consulted Blood culture ordered Time with Patient: Greater than 30 (Greater than 60% of the total time spent in counseling and coordination of care)
[2024-02-16] MEDS: ALBUTEROL NEBULIZED 2.5 MG/3 ML INHALATION SCH ×2 (15:21→15:50)
--- NOTE | 2024-02-16 15:30 | XR ---
EXAMINATION TYPE: XR KUB DATE OF EXAM: 02/16/2024 2:38 PM CLINICAL INDICATION: Male, 73 years old with history of constipation; COMPARISON: None. TECHNIQUE: One radiographic view of the abdomen was obtained. FINDINGS: There is a moderate stool burden, otherwise, the bowel gas pattern is nonspecific without d ilated loops of small or large bowel. . Fecal material and gas are demonstrated throughout the colon and rectum. There is no evidence for organomegaly or pneumoperitoneum. The osseous structures are intact. No ab normal calcifications are present. IMPRESSION: Moderate amount stool throughout the colon Nonspecific bowel gas pattern without radiographic evidenc e for acute process.
[2024-02-16] MEDS: BUMETANIDE 1 MG TAB PO SCH (15:59)
[2024-02-16] MEDS: MAGNESIUM OXIDE 400 MG TAB PO SCH (16:49)
[2024-02-16] MEDS: ATORVASTATIN 40 MG TAB PO SCH (16:49)
[2024-02-16] MEDS: APIXABAN 5 MG TAB PO SCH (16:54)
[2024-02-16] MEDS: INSULIN ASPART (NovoLOG) 100 UNIT/ML VIAL SQ SCH (17:00)
[2024-02-16 17:01] LABS: Glucose,Whole Blood 146 mg/dL (70-110)
[2024-02-16] MEDS: HYDROcodone/APAP 5-325MG 1 EACH TAB PO PRN (18:10)
[2024-02-16] MEDS: bisacodyL 5 MG TABLET.DR PO PRN (18:11)
[2024-02-16] MEDS: METOPROLOL TARTRATE 50 MG TAB PO SCH (18:11)
[2024-02-16] MEDS: bisacodyL 10 MG SUPP RECTAL PRN (18:45)
[2024-02-16] MEDS: TAMSULOSIN 0.4 MG CAP.ER.24H PO SCH (20:42)
[2024-02-16] MEDS: MELATONIN 5 MG TABLET PO SCH (20:42)
[2024-02-16] MEDS: MAGNESIUM HYDROXIDE 2,400 MG/30 ML CUP PO PRN (20:42)
[2024-02-16 21:04] LABS: Glucose,Whole Blood 180 mg/dL (70-110)
[2024-02-16] MEDS: METOPROLOL TARTRATE 12.5 MG TAB PO STA (22:40)
[2024-02-17] MEDS: Acetaminophen-Codeine 300-30mg TAB PO PRN (01:49)
[2024-02-17 06:12] LABS: Glucose,Whole Blood 279 mg/dL (70-110)
[2024-02-17] MEDS: PANTOPRAZOLE 40 MG TABLET PO SCH (06:23)
--- NOTE | 2024-02-17 07:29 | P.CONS ---
History of Present Illness - Reason for Consult Consult date: 02/16/24 Lower extremity cellulitis Requesting physician: Malou Schulz - Chief Complaint Low blood sugar x 1 day - History of Present Illness Patient is a 73-year-old male with a past medical history significant for hypertension hyperlipidemia diabetes mellitus COPD heart failure atrial fibrillation and residential resident patient has been sent to the ER for nataliya luation of hypotension and hypoglycemia noticed at the residential patient has been complaining of feeling weak tired denies having any headache or URI symptoms no chest pain shortness of breath he did have some cough and apparent bring up some sputum denies having any nausea no vomiting no abdominal pain or diarrhea the patient has developed a wound to the left heel area that is currently being treated at the residential however the patient is not clear about the type of treatment provided to eat he just mention they wrapped it up daily he did have some dull aching pain mild intensity without any radiation and denies any foul-smelling drainage on presentation to the hospital patient was a febrile no fever have been called subsequently patient was tachycardic but not hypotensive or hypoxic he did have white count of 13.3 with a left shift creatinine was normal electrolytes are normal liver enzymes are normal urine is negative patient did have a chest x-ray bibasilar atelectasis favored over infiltrate and small bilateral effusion no pulmonary edema patient has been admitted to the hospital infectious disease was consulted regarding lower extremity cellulitis and the patient was given a dose of ceftriaxone currently on cefazolin 1 g every 8 hour Review of Systems Positive point and negatives has been mentioned in the HPI, complete review of systems was performed and all other systems are negative Past Medical History Past Medical History: Atrial Fibrillation, Heart Failure, COPD, Diabetes Mellitus, Eye Disorder, Hyperlipidemia, Hypertension, Prostate Disorder, Sleep Apnea/CPAP/BIPAP, Thyroid Disorder Additional Past Medical History / Comment(s): HX PVC'S. MILD COPD. ANEMIA. HX KIDNEY STONES. BPH. HAD DIABETIC RETINOPATHY TX ON EYES. HAS HAD PICC LINE IN PAST, NOW OUT. CHRONIC BACK AND KNEE PAIN, lymphedema bilateral legs History of Any Multi-Drug Resistant Organisms: None Reported Past Surgical History: Orthopedic Surgery Additional Past Surgical History / Comment(s): RT THYROIDECTOMY. MASS FROM BACK, FATTY TUMOR. NASAL MASS REMOVED. LASER EYES, INTRAOCULAR LENS. WOUND ON RT FOOT I&D. LEFT KNEE ARTHROSCOPY, multiple CYST REMOVED FROM TAILBONE Past Anesthesia/Blood Transfusion Reactions: Previous Problems w/ Anesthesia Additional Past Anesthesia/Blood Transfusion Reaction / Comm: OCC TAKES LONG TIME TO AWAKEN. Past Psychological History: No Psychological Hx Reported Smoking Status: Former smoker Past Alcohol Use History: None Reported Past Drug Use History: None Reported - Past Family History Mother Family Medical History: COPD Father Family Medical History: Diabetes Mellitus Additional Family Medical History / Comment(s): heart failure Medications and Allergies Home Medications Medication Instructions Recorded Confirmed Type Tamsulosin [Flomax] 0.4 mg PO BID@0900,2100 11/17/17 02/16/24 History Albuterol Nebulized [Ventolin 2.5 mg INHALATION RT-Q6H 02/07/24 02/16/24 History Nebulized] Apixaban [Eliquis] 5 mg PO BID@0800,1700 02/07/24 02/16/24 History Atorvastatin [Lipitor] 40 mg PO HS@209902/07/24 02/16/24 History Collagenase [Santyl Ointment] 1 applic TOPICAL DAILY 02/07/24 02/16/24 History Dapagliflozin Propanediol [Farxiga] 10 mg PO DAILY@0800 02/07/24 02/16/24 History Hydrocortisone [Cortizone-10] 1 applic TOPICAL Q24H PRN 02/07/24 02/16/24 History Liquacel 30 ml PO BID@0800,1700 02/07/24 02/16/24 History Loperamide HCl [Imodium A-D] 2 - 4 mg PO QID PRN MDD 8mg 02/07/24 02/16/24 History Magnesium Hydroxide [Milk of 7,200 mg PO DAILY PRN 02/07/24 02/16/24 History Magnesia Concentrate] Magnesium Oxide [Mag-Ox] 400 mg PO BID@0800,1700 02/07/24 02/16/24 History Melatonin 5 mg PO HS@209902/07/24 02/16/24 History Na Phos,M-B/Na Phos,Di-Ba [Fleet 133 ml RECTAL DAILY PRN 02/07/24 02/16/24 History Adult] Pantoprazole [Protonix] 40 mg PO DAILY@0600 02/07/24 02/16/24 History Spironolactone [Aldactone] 25 mg PO DAILY@0800 02/07/24 02/16/24 History Tums 750mg Chewable 750 mg PO Q8H PRN 02/07/24 02/16/24 History bisacodyL [Dulcolax] 10 mg RECTAL DAILY PRN 02/07/24 02/16/24 History guaiFENesin [guaiFENesin Oral 200 mg PO Q4H PRN 02/07/24 02/16/24 History Solution] methIMAzole [Tapazole] 5 mg PO DAILY@0802/07/24 02/16/24 History Aspirin 81 mg PO DAILY@0802/16/24 02/16/24 History Metoprolol Tartrate [Lopressor] 50 mg PO BID@0800,1700 02/16/24 02/16/24 History Amiodarone [Cordarone] 200 mg PO BID tab 02/23/24 Rx Amiodarone [Cordarone] 200 mg PO TID tab 02/23/24 Rx Bumetanide [BUMEX] 0.5 mg PO 1400 tab 02/23/24 Rx Bumetanide [BUMEX] 1 mg PO DAILY tab 02/23/24 Rx Cephalexin [Keflex] 500 mg PO Q8HR 7 Days #21 cap 02/23/24 Rx HYDROcodone/APAP 5-325MG [[place] 1 each PO Q4HR PRN 3 Days #12 tab 02/23/24 Rx 5-325] Pioglitazone [Actos] 30 mg PO DAILY tab 02/23/24 Rx bisacodyL [Dulcolax] 5 mg PO DAILY PRN tab 02/23/24 Rx glipiZIDE [Glucotrol] 2.5 mg PO AC-TID tab 02/23/24 Rx lisinopriL [Zestril] 5 mg PO DAILY tab 02/23/24 Rx Allergies Allergy/AdvReac Type Severity Reaction Status Date / Time adhesive Allergy BLISTERING Verified 02/16/24 09:54 RASH amoxicillin Allergy Rash/Hives Verified 02/16/24 09:54 Penicillins Allergy Rash/Hives Verified 02/16/24 09:54 pollen extracts Allergy RHINITIS, Verified 02/16/24 09:54 SORE THROAT Physical Exam Vitals: Vital Signs Temp Pulse Resp BP Pulse Ox 02/16/24 14:00 99 16 88/56 98 02/16/24 12:00 86 18 96/60 95 02/16/24 10:00 74 16 82/55 95 02/16/24 09:42 87 18 92/48 97 02/16/24 09:01 112 H 88/47 97 02/16/24 08:26 97.0 F L 47 L 18 96/72 98 Intake and Output 02/16/24 02/16/24 02/16/24 06:59 14:59 22:59 Output Total 300 Balance -300 Output: Urine 300 Straight 300 Other: Weight 100.244 kg GENERAL DESCRIPTION: Elderly male lying in bed, no distress. No tachypnea or accessory muscle of respiration use. HEENT: Shows Pallor , no scleral icterus. Oral mucous membrane is dry. No pharyngeal erythema or thrush NECK: Trachea central, no thyromegaly. LUNGS: Unlabored breathing. Clear to auscultation anteriorly. No wheeze or crackle. HEART: S1, S2, regular rate and rhythm. No loud murmur ABDOMEN: Soft, no tenderness , guarding or rigidity, no organomegaly EXTREMITIES: Patient did have a necrotic wound to the left heel minimal surrounding redness, bilateral lower Extremity with minimal swelling redness and warmth SKIN: No rash, no masses palpable. NEUROLOGICAL: The patient is awake, alert, oriented x3, mood and affect normal. Results CBC & Chem 7: 02/23/24 03:47 02/23/24 03:47 Labs: Abnormal Lab Results - Last 24 Hours (Table) 02/16/24 02/16/24 02/16/24 Range/Units 08:56 08:56 08:56 WBC 13.3 H (3.8-10.6) k/uL Hgb 11.4 L (13.0-17.5) gm/dL Hct 35.7 L (39.0-53.0) % RDW 22.0 H (11.5-15.5) % Neutrophils # 11.4 H (1.3-7.7) k/uL PT 13.5 H (10.0-12.5) sec INR 1.3 H (<1.2) APTT 39.3 H (22.0-30.0) sec Sodium 136 L (137-145) mmol/L Carbon Dioxide 32 H (22-30) mmol/L BUN 23 H (9-20) mg/dL Glucose 102 H (74-99) mg/dL POC Glucose (mg/dL) (70-110) mg/dL Alkaline Phosphatase 150 H (38-126) U/L Total Protein 5.4 L (6.3-8.2) g/dL Albumin 2.5 L (3.5-5.0) g/dL Urine Glucose (UA) (Negative) 02/16/24 02/16/24 Range/Units 09:46 10:45 WBC (3.8-10.6) k/uL Hgb (13.0-17.5) gm/dL Hct (39.0-53.0) % RDW (11.5-15.5) % Neutrophils # (1.3-7.7) k/uL PT (10.0-12.5) sec INR (<1.2) APTT (22.0-30.0) sec Sodium (137-145) mmol/L Carbon Dioxide (22-30) mmol/L BUN (9-20) mg/dL Glucose (74-99) mg/dL POC Glucose (mg/dL) 138 H (70-110) mg/dL Alkaline Phosphatase (38-126) U/L Total Protein (6.3-8.2) g/dL Albumin (3.5-5.0) g/dL Urine Glucose (UA) 3+ H (Negative) Assessment and Plan (1) Bilateral lower leg cellulitis Current Visit: No Status: Acute Code(s): L03.116 - CELLULITIS OF LEFT LOWER LIMB; L03.115 - CELLULITIS OF RIGHT LOWER LIMB SNOMED Code(s): 177562574 (2) Penicillin allergy Current Visit: No Status: Acute Code(s): Z88.0 - ALLERGY STATUS TO PENICILLIN SNOMED Code(s): 18764239 Plan: 1patient presented to the hospital with hyperglycemia and apparently was noticed to be mildly hypotensive patient did have a necrotic wound to the left heel and a component cellulitis of bilateral lower extremity likely from gram- positive skin karan 2-patient benefit from surgical debridement of the left heel wound for now we will apply Medihoney followed by moist dressing 3-we will increase the dose of cefazolin to 2 g every 8 hours We will follow on clinical condition and cultures to further adjust medication if needed Thank you for this consultation we will follow the patient along with you Dictation was produced using [employer] dictation software. please excuse any grammatical, word or spelling errors. Time with Patient: Greater than 30
[2024-02-17] MEDS: SPIRONOLACTONE 25 MG TAB PO SCH (08:19)
[2024-02-17] MEDS: DAPAGLIFLOZIN PROPANEDIOL 10 MG TABLET PO SCH (08:20)
[2024-02-17] MEDS: ASPIRIN 81 MG PO SCH (08:20)
[2024-02-17] MEDS: methIMAzole 5 MG TAB PO SCH (08:20)
[2024-02-17 09:07] LABS: ALT 23 U/L (10-49); AST 19 U/L (14-35); Albumin 2.7 g/dL (3.8-4.9); Albumin/Globulin Ratio 1.04 Ratio (1.60-3.17); Alkaline Phosphatase 176 U/L (41-126); BUN/Creat Ratio 25.67 Ratio (12.00-20.00); Basophils # (A) 0.06 X 10*3/uL (0.00-0.10); Basophils % (A) 0.7 %; Blood Urea Nitrogen 23.1 mg/dL (9.0-27.0); Calcium 8.5 mg/dL (8.7-10.3); Carbon Dioxide 26.4 mmol/L (21.6-31.8); Chloride 98 mmol/L (96-109); Eosinophils # (A) 0.11 X 10*3/uL (0.04-0.35); Eosinophils % (A) 1.3 %; Globulin 2.6 g/dL (1.6-3.3); Glucose 221 mg/dL (70-110); HCT 34.3 % (39.6-50.0); HGB 10.9 g/dL (13.0-17.0); Lymphocytes # (A) 1.16 X 10*3/uL (0.90-5.00); Lymphocytes % (A) 13.9 %; MCH 25.1 pg (27.0-32.0); MCHC 31.8 g/dL (32.0-37.0); Mean Platelet Volume 9.6 FL (9.5-12.2); Monocytes # (A) 0.68 X 10*3/uL (0.20-1.00); Monocytes % (A) 8.1 %; NRBC Per 100 WBC 0 X 10*3/uL (0.00-0.01); Neutrophils # (A) 6.31 X 10*3/uL (1.80-7.70); Neutrophils % (A) 75.6 %; Platelet Count 342 X 10*3/uL (140-440); Potassium 4.3 mmol/L (3.5-5.5); RBC 4.34 X 10*6/uL (4.40-5.60); RDW 24.6 % (11.5-14.5); Sodium 135 mmol/L (135-145); Total Bilirubin 0.9 mg/dL (0.3-1.2); Total Protein 5.3 g/dL (6.2-8.2); WBC 8.35 X 10*3/uL (4.50-10.00)
--- NOTE | 2024-02-17 10:12 | P.CRDCN ---
History of Present Illness Consult date: 02/17/24 Reason for Consult (text): Hypotension, atrial fibrillation History of present illness: This is a 73-year-old male with a past medical history significant for atrial fibrillation, congestive heart failure, COPD, and hyperlipidemia, TIA, cardio myopathy, chronic systolic heart failure, hypertension, hyperlipidemia, diabetes, COPD, chronic lymphedema, left internal carotid artery stenosis of 50 to 69%. We have been asked to evaluate the patient for hypotension and atrial fibrillation. Patient had a recent hospitalization in January at which time he was treated for expressive aphasia related to TIA. Patient was seen by cardiology during that stay and Entresto and Coreg were discontinued for hypotension, patient started on Lopressor for rate control. Patient currently resides at [facility] and apparently his blood pressure was low as well as blood sugar was low. Patient denies having any chest pain or shortness of breath. He is currently in atrial fibrillation running between 110 and of 220. Last evening he was running in the 120s and received an extra dose of Lopressor 12.5 mg. Patient is normally bedbound. Blood pressure 97/59. EKG: Atrial fibrillation with controlled ventricular rate at ventricular rate of 85. Chest xray: Bibasilar atelectasis favored over infiltrate with small bilateral pleural effusions. No overt pulmonary edema. CT brain no acute bleed or mass effect. Laboratory data: WBC 8.3, hemoglobin 10.9. Sodium 135, potassium 4.3, BUN 23 creatinine 0.9. Alkaline phosphatase 176. Current home cardiac medications: Eliquis 5 mg twice daily, aspirin 81 mg daily, atorvastatin 40 mg at bedtime, Bumex 1 mg twice daily, Farxiga 10 mg daily, magnesium oxide 400 mg twice daily, Lopressor 50 mg twice daily, Aldactone 25 mg daily. Most recent echocardiogram obtained in January 2024 revealed ejection fraction 35 to 40%, severe pulmonary hypertension, mild to moderate tricuspid regurgitation Cardiac catheterization history: Unknown REVIEW OF SYSTEMS: At the time of my exam: CONSTITUTIONAL: Denies fever or chills. HEENT: Denies blurred vision, vision changes, or eye pain. Denies hemoptysis CARDIOVASCULAR: Denies chest pain. Denies orthopnea. Denies PND. Denies palpitations RESPIRATORY: Denies shortness of breath. GASTROINTESTINAL: Denies abdominal pain. Denies nausea or vomiting. HEMATOLOGIC: Denies bleeding disorders. GENITOURINARY: Denies any blood in urine. SKIN: Denies pruitis. Denies rash. PHYSICAL EXAM: VITAL SIGNS: Reviewed. GENERAL: Well-developed in no acute distress. HEENT: Head is normocephalic. Pupils are equal, round. Sclerae anicteric. Mucous membranes of the mouth are moist. Neck supple. No JVD or thyromegaly LUNGS: Respirations even and unlabored. Lungs essentially clear to auscultation bilaterally. HEART: Irregular rate and rhythm. S1 and S2 heard. ABDOMEN: Soft. Nondistended. Nontender. EXTREMITIES: No clubbing or cyanosis. Peripheral pulses intact. Minimal lower extremity edema NEUROLOGIC: Awake and alert. ASSESSMENT: Hypotension Recent TIA Suspect permanent atrial fibrillation, on Eliquis, now rate controlled Coronary artery calcifications, prior CT in December 2023 Cardiomyopathy, ejection fraction 35 to 40%, ischemic versus nonischemic, suspect tachycardia induced Chronic heart failure with reduced EF, currently euvolemic Hypertension Hyperlipidemia Diabetes COPD Chronic lymphedema Hypomagnesemia PLAN: No need to repeat echocardiogram as this was performed in January 2024 Change Bumex to 1 mg in the morning and a half a milligram in the afternoon Discontinue aspirin Continue monitoring Further recommendations pending patient course Nurse practitioner note has been reviewed by physician. Signing provider agrees with the documented findings, assessment, and plan of care documented by AD[employer]ISING [employer] CLERK as a scribe. Past Medical History Past Medical History: Atrial Fibrillation, Heart Failure, COPD, Diabetes Mellit us, Eye Disorder, Hyperlipidemia, Hypertension, Prostate Disorder, Sleep Apnea/CPAP/BIPAP, Thyroid Disorder Additional Past Medical History / Comment(s): HX PVC'S. MILD COPD. ANEMIA. HX KIDNEY STONES. BPH. HAD DIABETIC RETINOPATHY TX ON EYES. HAS HAD PICC LINE IN PAST, NOW OUT. CHRONIC BACK AND KNEE PAIN, lymphedema bilateral legs History of Any Multi-Drug Resistant Organisms: None Reported Past Surgical History: Orthopedic Surgery Additional Past Surgical History / Comment(s): RT THYROIDECTOMY. MASS FROM BACK, FATTY TUMOR. NASAL MASS REMOVED. LASER EYES, INTRAOCULAR LENS. WOUND ON RT FOOT I&D. LEFT KNEE ARTHROSCOPY, multiple CYST REMOVED FROM TAILBONE Past Anesthesia/Blood Transfusion Reactions: Previous Problems w/ Anesthesia Additional Past Anesthesia/Blood Transfusion Reaction / Comment(s): OCC TAKES LONG TIME TO AWAKEN. Past Psychological History: No Psychological Hx Reported Smoking Status: Former smoker Past Alcohol Use History: None Reported Past Drug Use History: None Reported - Past Family History Mother Family Medical History: COPD Father Family Medical History: Diabetes Mellitus Additional Family Medical History / Comment(s): heart failure Medications and Allergies Home Medications Medication Instructions Recorded Confirmed Type Tamsulosin [Flomax] 0.4 mg PO BID@0900,2100 11/17/17 02/16/24 History Albuterol Nebulized [Ventolin 2.5 mg INHALATION RT-Q6H 02/07/24 02/16/24 History Nebulized] Apixaban [Eliquis] 5 mg PO BID@0800,1700 02/07/24 02/16/24 History Atorvastatin [Lipitor] 40 mg PO HS@2100 02/07/24 02/16/24 History Bumetanide [BUMEX] 1 mg PO BID@0600,1400 02/07/24 02/16/24 History Collagenase [Santyl Ointment] 1 applic TOPICAL DAILY 02/07/24 02/16/24 History Dapagliflozin Propanediol [Farxiga] 10 mg PO DAILY@0800 02/07/24 02/16/24 History Hydrocortisone [Cortizone-10] 1 applic TOPICAL Q24H PRN 02/07/24 02/16/24 History INSULIN ASPART (NovoLOG) [NovoLOG See Protocol SQ AC-TID 02/07/24 02/16/24 History (formulary)] Liquacel 30 ml PO BID@0800,1700 02/07/24 02/16/24 History Loperamide HCl [Imodium A-D] 2 - 4 mg PO QID PRN MDD 8mg 02/07/24 02/16/24 History Magnesium Hydroxide [Milk of 7,200 mg PO DAILY PRN 02/07/24 02/16/24 History Magnesia Concentrate] Magnesium Oxide [Mag-Ox] 400 mg PO BID@0800,1700 02/07/24 02/16/24 History Melatonin 5 mg PO HS@209902/07/24 02/16/24 History Na Phos,M-B/Na Phos,Di-Ba [Fleet 133 ml RECTAL DAILY PRN 02/07/24 02/16/24 History Adult] Pantoprazole [Protonix] 40 mg PO DAILY@0600 02/07/24 02/16/24 History Spironolactone [Aldactone] 25 mg PO DAILY@0800 02/07/24 02/16/24 History Tums 750mg Chewable 750 mg PO Q8H PRN 02/07/24 02/16/24 History bisacodyL [Dulcolax] 10 mg RECTAL DAILY PRN 02/07/24 02/16/24 History guaiFENesin [guaiFENesin Oral 200 mg PO Q4H PRN 02/07/24 02/16/24 History Solution] methIMAzole [Tapazole] 5 mg PO DAILY@0800 02/07/24 02/16/24 History Insulin Detemir (Levemir) [Levemir] 35 unit SQ HS each 02/11/24 02/16/24 Rx Aspirin 81 mg PO DAILY@0800 02/16/24 02/16/24 History HYDROcodone/APAP 10-325MG [[place] 1 tab PO Q6HR PRN 02/16/24 02/16/24 History 10-325] Metoprolol Tartrate [Lopressor] 50 mg PO BID@0800,1700 02/16/24 02/16/24 History Allergies Allergy/AdvReac Type Severity Reaction Status Date / Time adhesive Allergy BLISTERING Verified 02/16/24 09:54 RASH amoxicillin Allergy Rash/Hives Verified 02/16/24 09:54 Penicillins Allergy Rash/Hives Verified 02/16/24 09:54 pollen extracts Allergy RHINITIS, Verified 02/16/24 09:54 SORE THROAT Physical Exam Vitals: Vital Signs Temp Pulse Pulse Resp BP BP BP 02/17/24 08:46 74 02/17/24 08:34 02/17/24 08:31 67 02/17/24 07:00 97.7 F 57 L 14 97/59 02/17/24 02:40 97.7 F 120 H 102 H 18 91/62 02/16/24 21:25 97.7 F 103 H 18 109/66 02/16/24 17:50 97.9 F 87 16 107/69 02/16/24 16:55 96.7 F L 100 18 102/61 02/16/24 15:31 120 H 18 02/16/24 15:30 99 18 100/69 02/16/24 15:22 126 H 18 02/16/24 15:00 112 H 16 90/54 09/04/24 14:00 99 16 88/56 02/16/24 12:00 86 18 96/60 02/16/24 10:00 74 16 82/55 Pulse Ox 02/17/24 08:46 02/17/24 08:34 99 02/17/24 08:31 02/17/24 07:00 99 02/17/24 02:40 97 02/16/24 21:25 98 02/16/24 17:50 95 02/16/24 16:55 98 02/16/24 15:31 02/16/24 15:30 100 02/16/24 15:22 02/16/24 15:00 95 02/16/24 14:00 98 02/16/24 12:00 95 02/16/24 10:00 95 Intake and Output 02/16/24 02/17/24 02/17/24 22:59 06:59 14:59 Intake Total 0 Output Total 650 Balance -650 0 Intake: Oral 0 Output: Urine 650 Other: Voiding Method External Catheter External Catheter External Catheter # Bowel Movements 2 1 Weight 100.244 kg Results 02/17/24 02:57 02/17/24 02:57 Cardiac Enzymes 02/17/24 Range/Units 02:57 AST 19 (14-35) U/L CBC 02/17/24 Range/Units 02:57 WBC 8.35 (4.50-10.00) X 10*3/uL RBC 4.34 L (4.40-5.60) X 10*6/uL Hgb 10.9 L (13.0-17.0) g/dL Hct 34.3 L (39.6-50.0) % Plt Count 342 (140-440) X 10*3/uL Comprehensive Metabolic Panel 02/17/24 Range/Units 02:57 Sodium 135 (135-145) mmol/L Potassium 4.3 (3.5-5.5) mmol/L Chloride 98 (96-109) mmol/L Carbon Dioxide 26.4 (21.6-31.8) mmol/L BUN 23.1 (9.0-27.0) mg/dL Creatinine 0.9 (0.6-1.5) mg/dL Glucose 221 H (70-110) mg/dL Calcium 8.5 L (8.7-10.3) mg/dL AST 19 (14-35) U/L ALT 23 (10-49) U/L Alkaline Phosphatase 176 H (41-126) U/L Total Protein 5.3 L (6.2-8.2) g/dL Albumin 2.7 L (3.8-4.9) g/dL Current Medications Generic Name Dose Route Start Last Admin Trade Name Freq PRN Reason Stop Dose Admin Acetaminophen/Codeine Phosphate 1 each 02/16/24 22:57 02/17/24 01:49 Acetaminophen-Codeine 300-30mg Tab PO 1 each Q6HR PRN Administration Pain Hydrocodone Bitart/Acetaminophen 1 each 02/16/24 11:21 02/16/24 18:10 Hydrocodone/Apap 5-325mg 1 Each Tab PO 1 each Q4HR PRN Administration Moderate Pain (Scale 4 to 6) Hydrocodone Bitart/Acetaminophen 1 each 02/16/24 13:51 Hydrocodone/Apap 10-325mg 1 Each Tab PO Q6HR PRN Pain 7-10 Albuterol Sulfate 2.5 mg 02/16/24 20:00 02/17/24 08:31 Albuterol Nebulized 2.5 Mg/3 Ml INHALATION 2.5 mg RT-TID [facility] Administration Apixaban 5 mg 02/16/24 17:00 02/17/24 08:19 Apixaban 5 Mg Tab PO 5 mg BID@0800,1700 [facility]OE[facility] Administration Protocol Atorvastatin Calcium 40 mg 02/16/24 21:00 02/16/24 20:44 Atorvastatin 40 Mg Tab PO 40 mg HS@2100 [facility] Administration Bisacodyl 5 mg 02/16/24 11:21 02/16/24 18:11 Bisacodyl 5 Mg Tablet.Dr PO 5 mg DAILY PRN Administration Constipation Bisacodyl 10 mg 02/16/24 13:51 02/16/24 18:45 Bisacodyl 10 Mg Supp RECTAL 10 mg DAILY PRN Administration Constipation Bumetanide 1 mg 02/18/24 09:00 Bumetanide 1 Mg Tab PO DAILY [facility] Bumetanide 0.5 mg 02/17/24 14:00 Bumetanide 0.5 Mg Tablet PO 1400 [facility] Dapagliflozin 10 mg 02/17/24 08:00 02/17/24 08:20 Dapagliflozin Propanediol 10 Mg Tablet PO 10 mg DAILY@0800 [facility] Administration Dextrose/Water 25 ml 02/16/24 13:34 Dextrose 50% Syringe 50 Ml IVP PER PROTOCOL PRN Hypoglycemia Protocol Dextrose/Water 50 ml 02/16/24 13:34 Dextrose 50% Syringe 50 Ml IVP PER PROTOCOL PRN Hypoglycemia Protocol Guaifenesin 200 mg 02/16/24 13:51 Guaifenesin Syrup 100mg/5ml 200 Mg/10 Ml Cup PO Q4H PRN Cough Cefazolin Sodium 2 gm/ Sodium 50 mls @ 100 mls/hr 02/17/24 08:00 02/17/24 08:20 Chloride IVPB 100 mls/hr Q8HR [facility] Administration Insulin Aspart 0 unit 02/16/24 17:30 02/17/24 06:23 Insulin Aspart (Novolog) 100 Unit/Ml Vial SQ 6 unit ACHS [facility] Administration Protocol Magnesium Hydroxide 2,400 mg 02/16/24 11:21 02/16/24 20:42 Magnesium Hydroxide 2,400 Mg/30 Ml Cup PO 2,400 mg DAILY PRN Administration Constipation Magnesium Oxide 400 mg 02/16/24 17:00 02/17/24 08:20 Magnesium Oxide 400 Mg Tab PO 400 mg BID@0800,1700 [facility] Administration Melatonin 5 mg 02/16/24 21:00 02/16/24 20:42 Melatonin 5 Mg Tablet PO 5 mg HS@2100 [facility] Administration Methimazole 5 mg 02/17/24 08:00 02/17/24 08:20 Methimazole 5 Mg Tab PO 5 mg DAILY@0800 [facility] Administration Metoprolol Tartrate 50 mg 02/16/24 17:00 02/17/24 08:20 Metoprolol Tartrate 50 Mg Tab PO 50 mg BID@0800,1700 [facility] Administration Naloxone HCl 0.2 mg 02/16/24 11:21 Naloxone 0.4 Mg/Ml 1 Ml Vial IV Q2M PRN Opioid Reversal Collagenase 250 Unit 1 each 02/17/24 09:00 /Gm Ointment 30 Gm TOPICAL Tube DAILY [facility] Protocol Ondansetron HCl 4 mg 02/16/24 11:21 Ondansetron 4 Mg/2 Ml Vial IVP Q8HR PRN Nausea And Vomiting Pantoprazole Sodium 40 mg 02/17/24 06:00 02/17/24 06:23 Pantoprazole 40 Mg Tablet PO 40 mg DAILY@0600 [facility] Administration Sodium Biphosphate/Sodium Phosphate 133 ml 02/16/24 11:21 Na Phos,M-B/Na Phos,Di-Ba 133 Ml Enema RECTAL ONCE PRN Constipation Sodium Biphosphate/Sodium Phosphate 133 ml 02/16/24 13:51 Na Phos,M-B/Na Phos,Di-Ba 133 Ml Enema RECTAL DAILY PRN Constipation Spironolactone 25 mg 02/17/24 08:00 02/17/24 08:19 Spironolactone 25 Mg Tab PO 25 mg DAILY@0800 [facility] Administration Tamsulosin HCl 0.4 mg 02/16/24 21:00 02/17/24 08:20 Tamsulosin 0.4 Mg Cap.Er.24h PO 0.4 mg BID@0900,2100 [facility] Administration Intake and Output 02/16/24 02/17/24 02/17/24 22:59 06:59 14:59 Intake Total 0 Output Total 650 Balance -650 0 Intake: Oral 0 Output: Urine 650 Other: Voiding Method External Catheter External Catheter External Catheter # Bowel Movements 2 1 Weight 100.244 kg 02/17/24 02:57 02/17/24 02:57
[2024-02-17] MEDS ORDERED: ZINC OXIDE PASTE (Z-GUARD) 1 APPLIC TOPICAL PRN (10:35)
[2024-02-17] MEDS: COLLAGENASE 250 UNIT/GM OINTMENT 30 GM TUBE TOPICAL SCH (11:48)
[2024-02-17 12:20] LABS: Glucose,Whole Blood 263 mg/dL (70-110)
[2024-02-17] MEDS: NYSTATIN 100,000 UNIT/GM POWD 15 GM TOPICAL SCH (13:39)
[2024-02-17] MEDS: PIOGLITAZONE 30 MG TAB PO SCH (13:39)
[2024-02-17 13:47] VITALS: BMI 32.6
[2024-02-17] MEDS: BUMETANIDE 0.5 MG TABLET PO SCH (15:37)
[2024-02-17 15:59] LABS: % Iron Saturation 20.32 (15.00-50.00)
--- NOTE | 2024-02-17 16:44 | P.PN ---
Subjective Progress Note Date: 02/17/24 Francisco Cao is a a 73 year old male patient who presented to the ER from [facility] with complaints of weakness and low blood sugar. Patient also was found to have hypotension. Patient was recently admitted and treated for TIA and A- fib. Patient denies any chest pain or shortness of breath. Patient has chronic lower extremity lymphedema with open wound to left heel. Patient denies any nausea vomiting or diarrhea. During last admission Lantus was decreased but patient still having episodes of low blood sugar. Patient has past medical history of atrial fibrillation, CHF, COPD, diabetes mellitus, eye disorder, hyperlipidemia, hypertension, prostate disorder, thyroid disorder and chronic lymphedema to bilateral legs. Chest x-ray completed showing bibasilar atelectasis favored over infiltrate with small bilateral pleural effusion no overt pulmonary edema prominent right helium consider short-term follow-up CT of chest. EKG completed showing A-fib. Lab work revealing negative troponin creatinine 0.79 bun 23. White blood cell 13.3, hemoglobin 11.4. UA negative. At this time patient will be admitted long-acting insulin DC'd patient maintained on sliding scale coverage. Will consult cardiology services for A- fib and hypotension. Will also consult infectious disease for lower extremity wound. Blood culture ordered at this time patient denies chest pain or shortness of breath. Patient denies nausea vomiting or diarrhea. Patient denies any urinary burning or frequency On 02/17/2024 patient was seen and examined on the medical floor he is alert and oriented x 3 in no apparent distress he is still having episodes of hypoglycemia and episodes of hypotension medications are being adjusted otherwise patient denies any complaints there is no fever or chills no headache or dizziness no chest pain no shortness of breath no cough no nausea or vomiting no abdominal pain no diarrhea and no urinary symptoms Objective - Vital Signs Vital signs: Vital Signs Temp 97.7 F 02/17/24 07:00 Pulse 74 02/17/24 08:46 Resp 14 02/17/24 07:00 BP 97/59 02/17/24 07:00 Pulse Ox 99 02/17/24 08:34 FiO2 Intake & Output 02/16/24 02/17/24 02/17/24 18:59 06:59 18:59 Intake Total 0 Output Total 300 650 Balance -300 -650 0 Weight 100.244 kg Intake: Oral 0 Output: Urine 300 650 Straight 300 Other: Voiding Method External Catheter External Catheter External Catheter # Bowel Movements 1 - Exam Head normocephalic Neck supple Lungs clear to auscultation bilaterally no wheezing or crackles Heart irregular heart rate known A-fib Abdomen is soft nontender nondistended positive bowel sounds no hepat osplenomegaly Extremities bilateral lower extremity lymphedema. Left heel ulcer Neuro alert and orientated to 3 - Labs CBC & Chem 7: 02/17/24 02:57 02/17/24 02:57 Labs: Abnormal Lab Results - Last 24 Hours (Table) 02/16/24 02/16/24 02/17/24 Range/Units 16:58 21:02 02:57 RBC (4.40-5.60) X 10*6/uL Hgb (13.0-17.0) g/dL Hct (39.6-50.0) % MCV (80.0-97.0) FL MCH (27.0-32.0) pg MCHC (32.0-37.0) g/dL RDW (11.5-14.5) % BUN/Creatinine Ratio (12.00-20.00) Ratio Glucose (70-110) mg/dL POC Glucose (mg/dL) 146 H 180 H (70-110) mg/dL Hemoglobin A1c 9.0 H (<=6.0) % Calcium (8.7-10.3) mg/dL Alkaline Phosphatase (41-126) U/L Total Protein (6.2-8.2) g/dL Albumin (3.8-4.9) g/dL Albumin/Globulin Ratio (1.60-3.17) Ratio 02/17/24 02/17/24 02/17/24 Range/Units 02:57 02:57 06:10 RBC 4.34 L (4.40-5.60) X 10*6/uL Hgb 10.9 L (13.0-17.0) g/dL Hct 34.3 L (39.6-50.0) % MCV 79.0 L (80.0-97.0) FL MCH 25.1 L (27.0-32.0) pg MCHC 31.8 L (32.0-37.0) g/dL RDW 24.6 H (11.5-14.5) % BUN/Creatinine Ratio 25.67 H (12.00-20.00) Ratio Glucose 221 H (70-110) mg/dL POC Glucose (mg/dL) 279 H (70-110) mg/dL Hemoglobin A1c (<=6.0) % Calcium 8.5 L (8.7-10.3) mg/dL Alkaline Phosphatase 176 H (41-126) U/L Total Protein 5.3 L (6.2-8.2) g/dL Albumin 2.7 L (3.8-4.9) g/dL Albumin/Globulin Ratio 1.04 L (1.60-3.17) Ratio 02/17/24 Range/Units 12:15 RBC (4.40-5.60) X 10*6/uL Hgb (13.0-17.0) g/dL Hct (39.6-50.0) % MCV (80.0-97.0) FL MCH (27.0-32.0) pg MCHC (32.0-37.0) g/dL RDW (11.5-14.5) % BUN/Creatinine Ratio (12.00-20.00) Ratio Glucose (70-110) mg/dL POC Glucose (mg/dL) 263 H (70-110) mg/dL Hemoglobin A1c (<=6.0) % Calcium (8.7-10.3) mg/dL Alkaline Phosphatase (41-126) U/L Total Protein (6.2-8.2) g/dL Albumin (3.8-4.9) g/dL Albumin/Globulin Ratio (1.60-3.17) Ratio Assessment and Plan Plan: 1. Hypoglycemia. Long-acting insulin held sliding scale added 2. Hypotension. Cardiology services consulted parameter set to cardiac medication 3. Left heel ulcer. Infectious disease services consulted 4. History of recent new onset atrial fibrillation status post cardioversion. Patient is back into atrial fibrillation maintained on Eliquis 5. History of COPD 6. History of chronic bilateral lower extremity lymphedema 7. History of CHF 8. History of morbid obesity 9. History of hyperlipidemia 10. History of hypothyroidism 11. History of diabetes mellitus type 2 DVT prophylaxis Eliquis. GI prophylaxis Protonix Cardiology services consulted Infectious disease services consulted Blood culture ordered
[2024-02-17 17:02] LABS: Glucose,Whole Blood 193 mg/dL (70-110)
[2024-02-17 20:36] LABS: Glucose,Whole Blood 229 mg/dL (70-110)
[2024-02-18 06:16] LABS: Glucose,Whole Blood 218 mg/dL (70-110)
[2024-02-18 08:06] LABS: Glucose,Whole Blood 163 mg/dL (70-110)
--- NOTE | 2024-02-18 08:30 | P.PN ---
Subjective Progress Note Date: 02/17/24 Principal diagnosis: Reason for follow-up is left heel wound left leg cellulitis and leukocytosis Patient is a 73-year-old male with a past medical history significant for hypertension hyperlipidemia diabetes mellitus COPD heart failure atrial fibrillation and [facility] resident patient has been sent to the ER for evaluation of hypotension and hypoglycemia noticed at the [facility], patient did have a necrotic wound to the left heel and concern for secondary cellulitis. On today's evaluation that is 02/17/2024, Patient is afebrile this morning patient denies having any chest pain shortness of breath or cough, the patient is breathing comfortably and currently on room air, patient denies any abdominal pain no diarrhea no nausea no vomiting denies any worsening pain to the left heel area. Patient white count normalized to 8.35 creatinine 0.9 Objective - Vital Signs Vital signs: Vital Signs Temp 97.7 F 02/17/24 14:40 Pulse 84 02/17/24 15:35 Resp 16 02/17/24 14:40 BP 87/51 02/17/24 14:40 Pulse Ox 97 02/17/24 14:40 FiO2 Intake & Output 02/16/24 02/17/24 02/17/24 18:59 06:59 18:59 Intake Total 222 Output Total 300 650 Balance -300 -650 222 Weight 100.244 kg 100.244 kg Intake: Oral 222 Output: Urine 300 650 Straight 300 Other: Voiding Method External Catheter External Catheter External Catheter # Voids 1 # Bowel Movements 1 - Exam GENERAL DESCRIPTION: An elderly male lying in bed in no distress RESPIRATORY SYSTEM: Unlabored breathing , decreased breath sounds at bases HEART: S1 S2 regular rate and rhythm , ABDOMEN: Soft , no tenderness EXTREMITIES: Left heel wound is currently dressed - Labs CBC & Chem 7: 02/17/24 02:57 02/17/24 02:57 Labs: Abnormal Lab Results - Last 24 Hours (Table) 02/16/24 02/16/24 02/17/24 Range/Units 16:58 21:02 02:57 RBC (4.40-5.60) X 10*6/uL Hgb (13.0-17.0) g/dL Hct (39.6-50.0) % MCV (80.0-97.0) FL MCH (27.0-32.0) pg MCHC (32.0-37.0) g/dL RDW (11.5-14.5) % BUN/Creatinine Ratio (12.00-20.00) Ratio Glucose (70-110) mg/dL POC Glucose (mg/dL) 146 H 180 H (70-110) mg/dL Hemoglobin A1c 9.0 H (<=6.0) % Calcium (8.7-10.3) mg/dL Iron (65-175) UG/DL Transferrin (204.0-354.0) mg/dL Alkaline Phosphatase (41-126) U/L Total Protein (6.2-8.2) g/dL Albumin (3.8-4.9) g/dL Albumin/Globulin Ratio (1.60-3.17) Ratio 02/17/24 02/17/24 02/17/24 Range/Units 02:57 02:57 02:57 RBC 4.34 L (4.40-5.60) X 10*6/uL Hgb 10.9 L (13.0-17.0) g/dL Hct 34.3 L (39.6-50.0) % MCV 79.0 L (80.0-97.0) FL MCH 25.1 L (27.0-32.0) pg MCHC 31.8 L (32.0-37.0) g/dL RDW 24.6 H (11.5-14.5) % BUN/Creatinine Ratio 25.67 H (12.00-20.00) Ratio Glucose 221 H (70-110) mg/dL POC Glucose (mg/dL) (70-110) mg/dL Hemoglobin A1c (<=6.0) % Calcium 8.5 L (8.7-10.3) mg/dL Iron 51 L (65-175) UG/DL Transferrin 179.0 L (204.0-354.0) mg/dL Alkaline Phosphatase 176 H (41-126) U/L Total Protein 5.3 L (6.2-8.2) g/dL Albumin 2.7 L (3.8-4.9) g/dL Albumin/Globulin Ratio 1.04 L (1.60-3.17) Ratio 02/17/24 02/17/24 Range/Units 06:10 12:15 RBC (4.40-5.60) X 10*6/uL Hgb (13.0-17.0) g/dL Hct (39.6-50.0) % MCV (80.0-97.0) FL MCH (27.0-32.0) pg MCHC (32.0-37.0) g/dL RDW (11.5-14.5) % BUN/Creatinine Ratio (12.00-20.00) Ratio Glucose (70-110) mg/dL POC Glucose (mg/dL) 279 H 263 H (70-110) mg/dL Hemoglobin A1c (<=6.0) % Calcium (8.7-10.3) mg/dL Iron (65-175) UG/DL Transferrin (204.0-354.0) mg/dL Alkaline Phosphatase (41-126) U/L Total Protein (6.2-8.2) g/dL Albumin (3.8-4.9) g/dL Albumin/Globulin Ratio (1.60-3.17) Ratio Assessment and Plan (1) Bilateral lower leg cellulitis Current Visit: No Status: Acute Code(s): L03.116 - CELLULITIS OF LEFT LOWER LIMB; L03.115 - CELLULITIS OF RIGHT LOWER LIMB SNOMED Code(s): 487264099 (2) Penicillin allergy Current Visit: No Status: Acute Code(s): Z88.0 - ALLERGY STATUS TO PENICILLIN SNOMED Code(s): 44358190 Plan: 1patient presented to the hospital with hyperglycemia and apparently was noticed to be mildly hypertensive patient did have a necrotic wound to the left heel and a component cellulitis of bilateral lower extremity likely from gram- positive skin karan 2-patient will benefit from surgical debridement of the left heel wound for now we will apply Medihoney followed by moist dressing 3-patient did have normalization of the white count continue with the cefazolin and monitor clinical course closely Dictation was produced using [employer] dictation software. please excuse any grammatical, word or spelling errors. Time with Patient: Less than 30
[2024-02-18] MEDS: METOPROLOL TARTRATE 50 MG TAB PO SCH (09:20)
[2024-02-18] MEDS: BUMETANIDE 1 MG TAB PO SCH (09:22)
--- NOTE | 2024-02-18 11:55 | P.PN ---
Subjective Progress Note Date: 02/18/24 Reason for Consult (text): Hypotension, atrial fibrillation History of present illness: This is a 73-year-old male with a past medical history significant for atrial fibrillation, congestive heart failure, COPD, and hyperlipidemia, TIA, cardiomyopathy, chronic systolic heart failure, hypertension, hyperlipidemia, diabetes, COPD, chronic lymphedema, left internal carotid artery stenosis of 50 to 69%. We have been asked to evaluate the patient for hypotension and atrial fibrillation. Patient had a recent hospitalization in January at which time he was treated for expressive aphasia related to TIA. Patient was seen by cardiology during that stay and Entresto and Coreg were discontinued for hypotension, patient started on Lopressor for rate control. Patient currently resides at [facility] and apparently his blood pressure was low as well as blood sugar was low. Patient denies having any chest pain or shortness of breath. He is currently in atrial fibrillation running between 110 and of 220. Last evening he was running in the 120s and received an extra dose of Lopressor 12.5 mg. Patient is normally bedbound. Blood pressure 97/59. EKG: Atrial fibrillation with controlled ventricular rate at ventricular rate of 85. Chest xray: Bibasilar atelectasis favored over infiltrate with small bilateral pleural effusions. No overt pulmonary edema. CT brain no acute bleed or mass effect. Laboratory data: WBC 8.3, hemoglobin 10.9. Sodium 135, potassium 4.3, BUN 23 creatinine 0.9. Alkaline phosphatase 176. Current home cardiac medications: Eliquis 5 mg twice daily, aspirin 81 mg daily, atorvastatin 40 mg at bedtime, Bumex 1 mg twice daily, Farxiga 10 mg daily, magnesium oxide 400 mg twice daily, Lopressor 50 mg twice daily, Aldactone 25 mg daily. Most recent echocardiogram obtained in January 2024 revealed ejection fraction 35 to 40%, severe pulmonary hypertension, mild to moderate tricuspid regurgitation Cardiac catheterization history: Unknown 02/17 Patient remains in atrial fibrillation in the high 90s, he is currently on metop rolol 50 mg twice daily. Blood pressures remain soft at 93/58. Patient has no new complaints today. PHYSICAL EXAM: VITAL SIGNS: Reviewed. GENERAL: Well-developed in no acute distress. HEENT: Head is normocephalic. Pupils are equal, round. Sclerae anicteric. Mucous membranes of the mouth are moist. Neck supple. No JVD or thyromegaly LUNGS: Respirations even and unlabored. Lungs essentially clear to auscultation bilaterally. HEART: Irregular rate and rhythm. S1 and S2 heard. ABDOMEN: Soft. Nondistended. Nontender. EXTREMITIES: No clubbing or cyanosis. Peripheral pulses intact. Minimal lower extremity edema NEUROLOGIC: Awake and alert. ASSESSMENT: Hypotension Recent TIA Suspect permanent atrial fibrillation, on Eliquis, now rate controlled Coronary artery calcifications, prior CT in December 2023 Cardiomyopathy, ejection fraction 35 to 40%, ischemic versus nonischemic, suspect tachycardia induced Chronic heart failure with reduced EF, currently euvolemic Hypertension Hyperlipidemia Diabetes COPD Chronic lymphedema Hypomagnesemia PLAN: No need to repeat echocardiogram as this was performed in January 2024 Change Bumex to 1 mg in the morning and a 0.5 mg in the afternoon Discontinue aspirin Change metoprolol 50 mg frequency to 3 times daily continue monitoring Change Flomax to the once a day only in the evening Repeat EKG in the morning Further recommendations pending patient course Nurse practitioner note has been reviewed by physician. Signing provider agrees with the documented findings, assessment, and plan of care documented by [employer] as a scribe. Objective - Vital Signs Vital signs: Vital Signs Temp 97.8 F 02/18/24 07:00 Pulse 84 02/18/24 09:10 Resp 19 02/18/24 07:00 BP 93/58 02/18/24 07:00 Pulse Ox 98 02/18/24 09:01 FiO2 Intake & Output 02/17/24 02/18/24 02/18/24 18:59 06:59 18:59 Intake Total 222 236 Output Total 1800 Balance 222 -1800 236 Weight 100.244 kg Intake: Oral 222 236 Output: Urine 1800 Other: Voiding Method External Catheter External Catheter External Catheter # Voids 1 # Bowel Movements 1 1 - Labs CBC & Chem 7: 02/17/24 02:57 02/17/24 02:57 Labs: Abnormal Lab Results - Last 24 Hours (Table) 02/17/24 02/17/24 02/17/24 Range/Units 02:57 12:15 17:00 POC Glucose (mg/dL) 263 H 193 H (70-110) mg/dL Iron 51 L (65-175) UG/DL Transferrin 179.0 L (204.0-354.0) mg/dL 02/17/24 02/18/24 02/18/24 Range/Units 20:34 06:14 08:04 POC Glucose (mg/dL) 229 H 218 H 163 H (70-110) mg/dL Iron (65-175) UG/DL Transferrin (204.0-354.0) mg/dL Microbiology - Last 24 Hours (Table) 02/16/24 11:57 Blood Culture Gram Stain - Preliminary Blood Blood Culture - Preliminary Coagulase Negative Staph Molecular ID
[2024-02-18 12:01] LABS: Glucose,Whole Blood 236 mg/dL (70-110)
--- NOTE | 2024-02-18 13:01 | P.PN ---
Subjective Progress Note Date: 02/18/24 Francisco Cao is a a 73 year old male patient who presented to the ER from [facility] with complaints of weakness and low blood sugar. Patient also was found to have hypotension. Patient was recently admitted and treated for TIA and A- fib. Patient denies any chest pain or shortness of breath. Patient has chronic lower extremity lymphedema with open wound to left heel. Patient denies any nausea vomiting or diarrhea. During last admission Lantus was decreased but patient still having episodes of low blood sugar. Patient has past medical history of atrial fibrillation, CHF, COPD, diabetes mellitus, eye disorder, hyperlipidemia, hypertension, prostate disorder, thyroid disorder and chronic lymphedema to bilateral legs. Chest x-ray completed showing bibasilar atelectasis favored over infiltrate with small bilateral pleural effusion no overt pulmonary edema prominent right helium consider short-term follow-up CT of chest. EKG completed showing A-fib. Lab work revealing negative troponin creatinine 0.79 bun 23. White blood cell 13.3, hemoglobin 11.4. UA negative. At this time patient will be admitted long-acting insulin DC'd patient maintained on sliding scale coverage. Will consult cardiology services for A- fib and hypotension. Will also consult infectious disease for lower extremity wound. Blood culture ordered at this time patient denies chest pain or shortness of breath. Patient denies nausea vomiting or diarrhea. Patient denies any urinary burning or frequency On 02/17/2024 patient was seen and examined on the medical floor he is alert and oriented x 3 in no apparent distress he is still having episodes of hypoglycemia and episodes of hypotension medications are being adjusted otherwise patient denies any complaints there is no fever or chills no headache or dizziness no chest pain no shortness of breath no cough no nausea or vomiting no abdominal pain no diarrhea and no urinary symptoms On 02/18/2024 patient is alert and oriented x 3. Patient remains on IV Kefzol. Vascular surgery consulted for possible debridement. Sliding scale insulin d/c glipizide added. Medications adjusted per cardiology. Patient denies chest pain or shortness of breath. Patient denies nausea vomiting or diarrhea. Patient denies any urinary burning or frequency Objective - Vital Signs Vital signs: Vital Signs Temp 97.8 F 02/18/24 07:00 Pulse 84 02/18/24 09:10 Resp 19 02/18/24 07:00 BP 93/58 02/18/24 07:00 Pulse Ox 98 02/18/24 09:01 FiO2 Intake & Output 02/17/24 02/18/24 02/18/24 18:59 06:59 18:59 Intake Total 222 236 Output Total 1800 Balance 222 -1800 236 Weight 100.244 kg Intake: Oral 222 236 Output: Urine 1800 Other: Voiding Method External Catheter External Catheter External Catheter # Voids 1 # Bowel Movements 1 1 - Exam Head normocephalic Neck supple Lungs clear to auscultation bilaterally no wheezing or crackles Heart irregular heart rate known A-fib Abdomen is soft nontender nondistended positive bowel sounds no hepatosplenomegaly Extremities bilateral lower extremity lymphedema. Left heel ulcer Neuro alert and orientated to 3 - Labs CBC & Chem 7: 02/17/24 02:57 02/17/24 02:57 Labs: Abnormal Lab Results - Last 24 Hours (Table) 02/17/24 02/17/24 02/17/24 Range/Units 02:57 17:00 20:34 POC Glucose (mg/dL) 193 H 229 H (70-110) mg/dL Iron 51 L (65-175) UG/DL Transferrin 179.0 L (204.0-354.0) mg/dL 02/18/24 02/18/24 02/18/24 Range/Units 06:14 08:04 11:57 POC Glucose (mg/dL) 218 H 163 H 236 H (70-110) mg/dL Iron (65-175) UG/DL Transferrin (204.0-354.0) mg/dL Microbiology - Last 24 Hours (Table) 02/16/24 11:57 Blood Culture Gram Stain - Preliminary Blood Blood Culture - Preliminary Staphylococcus epidermidis Molecular ID Assessment and Plan Assessment: 1. Hypoglycemia. Long-acting insulin held sliding scale added 2. Hypotension. Cardiology services consulted parameter set to cardiac medication 3. Left heel ulcer. Infectious disease services consulted 4. History of recent new onset atrial fibrillation status post cardioversion. Patient is back into atrial fibrillation maintained on Eliquis 5. History of COPD 6. History of chronic bilateral lower extremity lymphedema 7. History of CHF 8. History of morbid obesity 9. History of hyperlipidemia 10. History of hypothyroidism 11. History of diabetes mellitus type 2 DVT prophylaxis Eliquis. GI prophylaxis Protonix Cardiology services consulted Patient currently on IV antibiotics Vascular surgery consulted Infectious disease services consulted Blood culture ordered
--- NOTE | 2024-02-18 13:26 | P.GSCN ---
History of Present Illness History of present illness: 73-year-old white female came to the emergency room patient had a dialysis yesterday he woke up this morning and dialysis catheter was missing patient came to the emergency room had a chest x-ray and no catheter was seen. And patient does not remember how it came out this catheter was put 18 in February 01 left jugular approach Potassium is 4.7 calcium consulted for placement of a dialysis catheter. Medical history history of atrial fibrillation on Plavix chronic renal failure on dialysis Patient was seen in the emergency room neck is supple trachea central chest is clear to auscultation Abdomen soft nontender Vascular brachial radial and femoral pulses are present chest x-ray shows no evidence of dialysis catheter Discussed with nephrology recommended patient have a dialysis catheter and she can go home for dialysis tomorrow risk and complication discussed bleeding infection Past Medical History Past Medical History: Atrial Fibrillation, Heart Failure, COPD, Diabetes Mellitus, Eye Disorder, Hyperlipidemia, Hypertension, Prostate Disorder, Sleep Apnea/CPAP/BIPAP, Thyroid Disorder Additional Past Medical History / Comment(s): HX PVC'S. MILD COPD. ANEMIA. HX KIDNEY STONES. BPH. HAD DIABETIC RETINOPATHY TX ON EYES. HAS HAD PICC LINE IN PAST, NOW OUT. CHRONIC BACK AND KNEE PAIN, lymphedema bilateral legs History of Any Multi-Drug Resistant Organisms: None Reported Past Surgical History: Orthopedic Surgery Additional Past Surgical History / Comment(s): RT THYROIDECTOMY. MASS FROM BACK, FATTY TUMOR. NASAL MASS REMOVED. LASER EYES, INTRAOCULAR LENS. WOUND ON RT FOOT I&D. LEFT KNEE ARTHROSCOPY, multiple CYST REMOVED FROM TAILBONE Past Anesthesia/Blood Transfusion Reactions: Previous Problems w/ Anesthesia Additional Past Anesthesia/Blood Transfusion Reaction / Comm: OCC TAKES LONG TIME TO AWAKEN. Past Psychological History: No Psychological Hx Reported Smoking Status: Former smoker Past Alcohol Use History: None Reported Past Drug Use History: None Reported - Past Family History Mother Family Medical History: COPD Father Family Medical History: Diabetes Mellitus Additional Family Medical History / Comment(s): heart failure Medications and Allergies Home Medications Medication Instructions Recorded Confirmed Type Tamsulosin [Flomax] 0.4 mg PO BID@0900,2100 11/17/17 02/16/24 History Albuterol Nebulized [Ventolin 2.5 mg INHALATION RT-Q6H 02/07/24 02/16/24 History Nebulized] Apixaban [Eliquis] 5 mg PO BID@0800,1700 02/07/24 02/16/24 History Atorvastatin [Lipitor] 40 mg PO HS@2100 02/07/24 02/16/24 History Bumetanide [BUMEX] 1 mg PO BID@0600,1400 02/07/24 02/16/24 History Collagenase [Santyl Ointment] 1 applic TOPICAL DAILY 02/07/24 02/16/24 History Dapagliflozin Propanediol [Farxiga] 10 mg PO DAILY@0802/07/24 02/16/24 History Hydrocortisone [Cortizone-10] 1 applic TOPICAL Q24H PRN 02/07/24 02/16/24 History INSULIN ASPART (NovoLOG) [NovoLOG See Protocol SQ AC-TID 02/07/24 02/16/24 History (formulary)] Liquacel 30 ml PO BID@0800,1700 02/07/24 02/16/24 History Loperamide HCl [Imodium A-D] 2 - 4 mg PO QID PRN MDD 8mg 02/07/24 02/16/24 History Magnesium Hydroxide [Milk of 7,200 mg PO DAILY PRN 02/07/24 02/16/24 History Magnesia Concentrate] Magnesium Oxide [Mag-Ox] 400 mg PO BID@0800,1700 02/07/24 02/16/24 History Melatonin 5 mg PO HS@209902/07/24 02/16/24 History Na Phos,M-B/Na Phos,Di-Ba [Fleet 133 ml RECTAL DAILY PRN 02/07/24 02/16/24 History Adult] Pantoprazole [Protonix] 40 mg PO DAILY@0602/07/24 02/16/24 History Spironolactone [Aldactone] 25 mg PO DAILY@79902/07/24 02/16/24 History Tums 750mg Chewable 750 mg PO Q8H PRN 02/07/24 02/16/24 History bisacodyL [Dulcolax] 10 mg RECTAL DAILY PRN 02/07/24 02/16/24 History guaiFENesin [guaiFENesin Oral 200 mg PO Q4H PRN 02/07/24 02/16/24 History Solution] methIMAzole [Tapazole] 5 mg PO DAILY@79902/07/2402/15/24 History Insulin Detemir (Levemir) [Levemir] 35 unit SQ HS each 02/11/24 02/16/24 Rx Aspirin 81 mg PO DAILY@0800 02/16/24 02/16/24 History HYDROcodone/APAP 10-325MG [[place] 1 tab PO Q6HR PRN 02/16/24 02/16/24 History 10-325] Metoprolol Tartrate [Lopressor] 50 mg PO BID@0800,1700 02/16/24 02/16/24 History Allergies Allergy/AdvReac Type Severity Reaction Status Date / Time adhesive Allergy BLISTERING Verified 02/16/24 09:54 RASH amoxicillin Allergy Rash/Hives Verified 02/16/24 09:54 Penicillins Allergy Rash/Hives Verified 02/16/24 09:54 pollen extracts Allergy RHINITIS, Verified 02/16/24 09:54 SORE THROAT Surgical - Exam Vital Signs Temp Pulse Resp BP Pulse Ox 97.0 F L 47 L 18 96/72 98 02/16/24 08:26 02/16/24 08:26 02/16/24 08:26 02/16/24 08:26 02/16/24 08:26 Results - Labs 02/17/24 02:57 02/17/24 02:57 Abnormal Lab Results - Last 24 Hours (Table) 02/17/24 02/17/24 02/17/24 Range/Units 02:57 17:00 20:34 POC Glucose (mg/dL) 193 H 229 H (70-110) mg/dL Iron 51 L (65-175) UG/DL Transferrin 179.0 L (204.0-354.0) mg/dL 02/18/24 02/18/24 02/18/24 Range/Units 06:14 08:04 11:57 POC Glucose (mg/dL) 218 H 163 H 236 H (70-110) mg/dL Iron (65-175) UG/DL Transferrin (204.0-354.0) mg/dL Microbiology - Last 24 Hours (Table) 02/16/24 11:57 Blood Culture Gram Stain - Preliminary Blood Blood Culture - Preliminary Staphylococcus epidermidis Molecular ID
--- NOTE | 2024-02-18 13:29 | P.PN ---
Subjective Progress Note Date: 02/18/24 Principal diagnosis: Reason for follow-up is left heel wound left leg cellulitis and leukocytosis Patient is a 73-year-old male with a past medical history significant for hypertension hyperlipidemia diabetes mellitus COPD heart failure atrial fibrillation and [facility] resident patient has been sent to the ER for evaluation of hypotension and hypoglycemia noticed at the [facility], patient did have a necrotic wound to the left heel and concern for secondary cellulitis. On today's evaluation that is 02/18/2024,the patient denies any fever or any chills, patient is breathing comfortably on room air, the patient denies chest pain shortness of breath and no significant cough, patient denies abdominal pain, no nausea vomiting or diarrhea. Denies any worsening pain to the left heel wound area. No new lab has been obtained today Objective - Vital Signs Vital signs: Vital Signs Temp 97.8 F 02/18/24 07:00 Pulse 84 02/18/24 09:10 Resp 19 02/18/24 07:00 BP 93/58 02/18/24 07:00 Pulse Ox 98 02/18/24 09:01 FiO2 Intake & Output 02/17/24 02/18/24 02/18/24 18:59 06:59 18:59 Intake Total 222 236 Output Total 1800 Balance 222 -1800 236 Weight 100.244 kg Intake: Oral 222 236 Output: Urine 1800 Other: Voiding Method External Catheter External Catheter External Catheter # Voids 1 # Bowel Movements 1 1 - Exam GENERAL DESCRIPTION: An elderly male lying in bed in no distress RESPIRATORY SYSTEM: Unlabored breathing , decreased breath sounds at bases HEART: S1 S2 regular rate and rhythm , ABDOMEN: Soft , no tenderness EXTREMITIES: Left heel with a necrotic wound surrounding redness slightly decreased left leg redness has decreased - Labs CBC & Chem 7: 02/17/24 02:57 02/17/24 02:57 Labs: Abnormal Lab Results - Last 24 Hours (Table) 02/17/24 02/17/24 02/17/24 Range/Units 02:57 17:00 20:34 POC Glucose (mg/dL) 193 H 229 H (70-110) mg/dL Iron 51 L (65-175) UG/DL Transferrin 179.0 L (204.0-354.0) mg/dL 02/18/24 02/18/24 02/18/24 Range/Units 06:14 08:04 11:57 POC Glucose (mg/dL) 218 H 163 H 236 H (70-110) mg/dL Iron (65-175) UG/DL Transferrin (204.0-354.0) mg/dL Microbiology - Last 24 Hours (Table) 02/16/24 11:57 Blood Culture Gram Stain - Preliminary Blood Blood Culture - Preliminary Staphylococcus epidermidis Molecular ID Assessment and Plan (1) Bilateral lower leg cellulitis Current Visit: No Status: Acute Code(s): L03.116 - CELLULITIS OF LEFT LOWER LIMB; L03.115 - CELLULITIS OF RIGHT LOWER LIMB SNOMED Code(s): 694279873 (2) Penicillin allergy Current Visit: No Status: Acute Code(s): Z88.0 - ALLERGY STATUS TO PENICILLIN SNOMED Code(s): 37718220 Plan: 1patient presented to the hospital with hyperglycemia and apparently was noticed to be mildly hypertensive patient did have a necrotic wound to the left heel and a component cellulitis of bilateral lower extremity likely from gram- positive skin karan 2-vascular surgery has been consulted for debridement of the wound as per anup sue with the CHEMISTRY RESEARCH ASSISTANT for admitting team for now we will apply Medihoney followed by moist dressing 3-patient to continue with the cefazolin and monitor clinical course closely Dictation was produced using [employer] dictation software. please excuse any grammatical, word or spelling errors. Time with Patient: Less than 30
--- NOTE | 2024-02-18 14:35 | P.PCN ---
Description of Procedure: Patient is brought to the Model Maker this patient has history of chronic renal failure patient had a dialysis cath catheter in the left IJ according to the patient catheter came out patient was brought to the operating room this patient has a right IJ access in the past found to have a clot or fibrin sheath patient left ankle was prepped and draped in Prestel manner 1% lidocaine for infiltrated patient received 1 mg of Versed and 50 mg of fentanyl nasal oxygen ultrasound- guided micropuncture introduced left jugular vein micropuncture guide was passed under fluoroscopy control. Then a tunnel was created through the tunnel we brought 90 cm dialysis catheter at this point patient developed respiratory arrest and was called in patient was intubated by the anesthesia and internal medicine medicine was running the code for details please see the sheath of the "arrest in detail. Patient came in normal nerves sinus rhythm at this point to be decided to put a temporary cath in the right groin and guidewire was removed from the left IJ right groin was prepped and draped in Prestel manner 1% lidocaine were infiltrated ultrasound-guided micropuncture entry into the right common femoral vein micropuncture guide was passed and 4 point dilator advanced up the guidewire then we passed a regular guidewire under fluoroscopy fluoros copy control dilator was advanced. The guidewire then replaced 20 cm dialysis catheter top of guidewire guidewire was removed flushed with heparin saline hep- locked secured with 3 nylon patient was transferred to the intensive care unit satisfactory condition
--- NOTE | 2024-02-18 16:17 | P.GSCN ---
History of Present Illness History of present illness: 73-year-old gentleman patient has history of pressure ulcer left heel with full- thickness skin necrosis with mild redness with some fluctuation consulted for wound debridement. Medical history history of diabetes, hypertension, COPD, A-fib, Neck examination neck supple no bruit appreciated Chest is clear good in both lungs Abdomen soft nontender Femorals 1+ bilateral PT DP not palpable and has a pressure ulcer left heel full-thickness skin necrosis with some fluctuation Plan is we placed Medihoney gel we will arrange for wound debridement Past Medical History Past Medical History: Atrial Fibrillation, Heart Failure, COPD, Diabetes Melli tus, Eye Disorder, Hyperlipidemia, Hypertension, Prostate Disorder, Sleep Apnea/CPAP/BIPAP, Thyroid Disorder Additional Past Medical History / Comment(s): HX PVC'S. MILD COPD. ANEMIA. HX KIDNEY STONES. BPH. HAD DIABETIC RETINOPATHY TX ON EYES. HAS HAD PICC LINE IN PAST, NOW OUT. CHRONIC BACK AND KNEE PAIN, lymphedema bilateral legs History of Any Multi-Drug Resistant Organisms: None Reported Past Surgical History: Orthopedic Surgery Additional Past Surgical History / Comment(s): RT THYROIDECTOMY. MASS FROM BACK, FATTY TUMOR. NASAL MASS REMOVED. LASER EYES, INTRAOCULAR LENS. WOUND ON RT FOOT I&D. LEFT KNEE ARTHROSCOPY, multiple CYST REMOVED FROM TAILBONE Past Anesthesia/Blood Transfusion Reactions: Previous Problems w/ Anesthesia Additional Past Anesthesia/Blood Transfusion Reaction / Comm: OCC TAKES LONG TIME TO AWAKEN. Past Psychological History: No Psychological Hx Reported Smoking Status: Former smoker Past Alcohol Use History: None Reported Past Drug Use History: None Reported - Past Family History Mother Family Medical History: COPD Father Family Medical History: Diabetes Mellitus Additional Family Medical History / Comment(s): heart failure Medications and Allergies Home Medications Medication Instructions Recorded Confirmed Type Tamsulosin [Flomax] 0.4 mg PO BID@0900,2100 11/17/17 02/16/24 History Albuterol Nebulized [Ventolin 2.5 mg INHALATION RT-Q6H 02/07/24 02/16/24 History Nebulized] Apixaban [Eliquis] 5 mg PO BID@0800,1700 02/07/24 02/16/24 History Atorvastatin [Lipitor] 40 mg PO HS@2100 02/07/24 02/16/24 History Bumetanide [BUMEX] 1 mg PO BID@0600,1400 02/07/24 02/16/24 History Collagenase [Santyl Ointment] 1 applic TOPICAL DAILY 02/07/24 02/16/24 History Dapagliflozin Propanediol [Farxiga] 10 mg PO DAILY@0800 02/07/24 02/16/24 History Hydrocortisone [Cortizone-10] 1 applic TOPICAL Q24H PRN 02/07/24 02/16/24 Hist ory INSULIN ASPART (NovoLOG) [NovoLOG See Protocol SQ AC-TID 02/07/24 02/16/24 History (formulary)] Liquacel 30 ml PO BID@0800,1700 02/07/24 02/16/24 History Loperamide HCl [Imodium A-D] 2 - 4 mg PO QID PRN MDD 8mg 02/07/24 02/16/24 History Magnesium Hydroxide [Milk of 7,200 mg PO DAILY PRN 02/07/24 02/16/24 History Magnesia Concentrate] Magnesium Oxide [Mag-Ox] 400 mg PO BID@0800,1700 02/07/24 02/16/24 History Melatonin 5 mg PO HS@2100 02/07/24 02/16/24 History Na Phos,M-B/Na Phos,Di-Ba [Fleet 133 ml RECTAL DAILY PRN 02/07/24 02/16/24 History Adult] Pantoprazole [Protonix] 40 mg PO DAILY@0602/07/24 02/16/24 History Spironolactone [Aldactone] 25 mg PO DAILY@79902/07/24 02/16/24 History Tums 750mg Chewable 750 mg PO Q8H PRN 02/07/24 02/16/24 History bisacodyL [Dulcolax] 10 mg RECTAL DAILY PRN 02/07/24 02/16/24 History guaiFENesin [guaiFENesin Oral 200 mg PO Q4H PRN 02/07/24 02/16/24 History Solution] methIMAzole [Tapazole] 5 mg PO DAILY@79902/07/24 02/16/24 History Insulin Detemir (Levemir) [Levemir] 35 unit SQ HS each 02/11/24 02/16/24 Rx Aspirin 81 mg PO DAILY@79902/16/24 02/16/24 History HYDROcodone/APAP 10-325MG [[place] 1 tab PO Q6HR PRN 02/16/24 02/16/24 History 10-325] Metoprolol Tartrate [Lopressor] 50 mg PO BID@0800,1700 02/16/24 02/16/24 History Allergies Allergy/AdvReac Type Severity Reaction Status Date / Time adhesive Allergy BLISTERING Verified 02/16/24 09:54 RASH amoxicillin Allergy Rash/Hives Verified 02/16/24 09:54 Penicillins Allergy Rash/Hives Verified 02/16/24 09:54 pollen extracts Allergy RHINITIS, Verified 02/16/24 09:54 SORE THROAT Surgical - Exam Vital Signs Temp Pulse Resp BP Pulse Ox 97.0 F L 47 L 18 96/72 98 02/16/24 08:26 02/16/24 08:26 02/16/24 08:26 02/16/24 08:26 02/16/24 08:26 Results - Labs 02/17/24 02:57 02/17/24 02:57 Abnormal Lab Results - Last 24 Hours (Table) 02/17/24 02/17/24 02/18/24 Range/Units 17:00 20:34 06:14 POC Glucose (mg/dL) 193 H 229 H 218 H (70-110) mg/dL 02/18/24 02/18/24 Range/Units 08:04 11:57 POC Glucose (mg/dL) 163 H 236 H (70-110) mg/dL Microbiology - Last 24 Hours (Table) 02/16/24 11:57 Blood Culture Gram Stain - Preliminary Blood Blood Culture - Preliminary Staphylococcus epidermidis Molecular ID
[2024-02-18 17:24] LABS: Glucose,Whole Blood 242 mg/dL (70-110)
[2024-02-18 20:18] LABS: Glucose,Whole Blood 228 mg/dL (70-110)
[2024-02-18] MEDS: TAMSULOSIN 0.4 MG CAP.ER.24H PO SCH (20:26)
[2024-02-19 06:09] LABS: Glucose,Whole Blood 177 mg/dL (70-110)
[2024-02-19] MEDS: METOPROLOL TARTRATE 50 MG TAB PO SCH (09:31)
[2024-02-19] MEDS: MULTIVITAMINS, THERA 1 EACH TAB PO SCH (09:31)
[2024-02-19] MEDS: lisinopriL 5 MG TAB PO SCH (09:31)
--- NOTE | 2024-02-19 09:33 | P.PN ---
Subjective Progress Note Date: 02/19/24 History of present illness: This is a 73-year-old male with a past medical history significant for atrial fibrillation, congestive heart failure, COPD, and hyperlipidemia, TIA, ca rdiomyopathy, chronic systolic heart failure, hypertension, hyperlipidemia, diabetes, COPD, chronic lymphedema, left internal carotid artery stenosis of 50 to 69%. We have been asked to evaluate the patient for hypotension and atrial fibrillation. Patient had a recent hospitalization in January at which time he was treated for expressive aphasia related to TIA. Patient was seen by cardiology during that stay and Entresto and Coreg were discontinued for hypotension, patient started on Lopressor for rate control. Patient currently resides at [facility] and apparently his blood pressure was low as well as blood sugar was low. Patient denies having any chest pain or shortness of breath. He is currently in atrial fibrillation running between 110 and of 220. Last evening he was running in the 120s and received an extra dose of Lopressor 12.5 mg. Patient is normally bedbound. Blood pressure 97/59. EKG: Atrial fibrillation with controlled ventricular rate at ventricular rate of 85. Chest xray: Bibasilar atelectasis favored over infiltrate with small bilateral pleural effusions. No overt pulmonary edema. CT brain no acute bleed or mass effect. Laboratory data: WBC 8.3, hemoglobin 10.9. Sodium 135, potassium 4.3, BUN 23 creatinine 0.9. Alkaline phosphatase 176. Current home cardiac medications: Eliquis 5 mg twice daily, aspirin 81 mg daily, atorvastatin 40 mg at bedtime, Bumex 1 mg twice daily, Farxiga 10 mg daily, magnesium oxide 400 mg twice daily, Lopressor 50 mg twice daily, Aldactone 25 mg daily. Most recent echocardiogram obtained in January 2024 revealed ejection fraction 35 to 40%, severe pulmonary hypertension, mild to moderate tricuspid regurgitation Cardiac catheterization history: Unknown 02/17 Patient remains in atrial fibrillation in the high 90s, he is currently on metoprolol 50 mg twice daily. Blood pressures remain soft at 93/58. Patient has no new complaints today. 02/19/2024 Patient stays in atrial fibrillation with heart rate in high 90s. He is rate controlled on current dose of metoprolol 50 mg 3 times daily. Systolic blood pressure around 110 120 mmhg. Appears euvolemic I have reviewed his lab it is noticed that patient's ferritin and iron are low with low binding capacity suggestive of iron deficiency anemia along with anemia of chronic disease. PHYSICAL EXAM: VITAL SIGNS: Reviewed. GENERAL: Well-developed in no acute distress. HEENT: Head is normocephalic. Pupils are equal, round. Sclerae anicteric. Mucous membranes of the mouth are moist. Neck supple. No JVD or thyromegaly LUNGS: Respirations even and unlabored. Lungs essentially clear to auscultation bilaterally. HEART: Irregular rate and rhythm. S1 and S2 heard. ABDOMEN: Soft. Nondistended. Nontender. EXTREMITIES: No clubbing or cyanosis. Peripheral pulses intact. Minimal lower extremity edema NEUROLOGIC: Awake and alert. ASSESSMENT: Hypotension Recent TIA Suspect permanent atrial fibrillation, on Eliquis, now rate controlled Coronary artery calcifications, prior CT in December 2023 Cardiomyopathy, ejection fraction 35 to 40%, ischemic versus nonischemic, suspect tachycardia induced Chronic heart failure with reduced EF, currently euvolemic Hypertension Hyperlipidemia Diabetes COPD Chronic lymphedema Hypomagnesemia PLAN: Give 2 doses of IV iron. Consider starting p.o. iron to go home with. Consider starting p.o. multivitamins Reduce metoprolol to 50 mg twice daily Start rhythm control because of cardiomyopathy. Start amiodarone 200 mg 3 times daily for 1 week, thereafter 200 mg twice daily for 1 week, thereafter 20 mg daily. Will consider amiodarone for next 6 months. Add lisinopril 5 mg daily for cardiomyopathy. Continue Aldactone 25 mg daily. Continue Farxiga 10 mg daily Patient is on methimazole. There might be concern that patient has hyper thyroidism. I am not very clear on the heart. Would recommend outpatient endocrinology evaluation on this. Change Bumex to 1 mg in the morning and a 0.5 mg in the afternoon Change Flomax to the once a day only in the evening At this time patient is stable from cardiovascular standpoint. Recommend outpatient follow-up with primary strike out machine operator. Objective - Vital Signs Vital signs: Vital Signs Temp 98.1 F 02/19/24 07:59 Pulse 70 02/19/24 09:02 Resp 17 02/19/24 07:59 BP 123/73 02/19/24 07:59 Pulse Ox 98 02/19/24 08:56 FiO2 21 02/19/24 08:56 Intake & Output 02/18/24 02/19/24 02/19/24 18:59 06:59 18:59 Intake Total 236 Output Total 1800 1575 Balance -1564 -1575 Intake: Oral 236 Output: Urine 1800 775 Stool 800 Other: Voiding Method External Catheter External Catheter # Bowel Movements 4 3 - Labs CBC & Chem 7: 02/17/24 02:57 02/17/24 02:57 Labs: Abnormal Lab Results - Last 24 Hours (Table) 02/18/24 02/18/24 02/18/24 Range/Units 11:57 17:22 20:17 POC Glucose (mg/dL) 236 H 242 H 228 H (70-110) mg/dL 02/19/24 Range/Units 06:08 POC Glucose (mg/dL) 177 H (70-110) mg/dL Microbiology - Last 24 Hours (Table) 02/16/24 11:57 Blood Culture Gram Stain - Preliminary Blood Blood Culture - Preliminary Staphylococcus epidermidis Molecular ID
[2024-02-19 09:39] LABS: Basophils # (A) 0.06 X 10*3/uL (0.00-0.10); Eosinophils # (A) 0.14 X 10*3/uL (0.04-0.35); Eosinophils % (A) 2.4 %; HCT 33.7 % (39.6-50.0); HGB 10.4 g/dL (13.0-17.0); Lymphocytes # (A) 1.47 X 10*3/uL (0.90-5.00); Lymphocytes % (A) 24.7 %; MCH 24.9 pg (27.0-32.0); MCHC 30.9 g/dL (32.0-37.0); MCV 80.8 FL (80.0-97.0); Mean Platelet Volume 9.1 FL (9.5-12.2); Monocytes % (A) 10.1 %; NRBC Per 100 WBC 0 X 10*3/uL (0.00-0.01); Neutrophils # (A) 3.66 X 10*3/uL (1.80-7.70); Neutrophils % (A) 61.5 %; Platelet Count 308 X 10*3/uL (140-440); RBC 4.17 X 10*6/uL (4.40-5.60); RDW 24.8 % (11.5-14.5); WBC 5.95 X 10*3/uL (4.50-10.00)
[2024-02-19] MEDS: SODIUM FERRIC GLUCONAT-SUCROSE 125 MG in SODIUM CHLORIDE 0.9% 100 ML IVPB SCH (09:52)
[2024-02-19 10:08] LABS: ALT 14 U/L (10-49); AST 16 U/L (14-35); Albumin 2.8 g/dL (3.8-4.9); Albumin/Globulin Ratio 1.12 Ratio (1.60-3.17); Alkaline Phosphatase 165 U/L (41-126); BUN/Creat Ratio 21.25 Ratio (12.00-20.00); Calcium 8.7 mg/dL (8.7-10.3); Carbon Dioxide 29.2 mmol/L (21.6-31.8); Chloride 99 mmol/L (96-109); Globulin 2.5 g/dL (1.6-3.3); Glucose 205 mg/dL (70-110); Potassium 3.9 mmol/L (3.5-5.5); Sodium 137 mmol/L (135-145); Total Bilirubin 0.6 mg/dL (0.3-1.2); Total Protein 5.3 g/dL (6.2-8.2)
--- NOTE | 2024-02-19 11:06 | P.PN ---
Subjective Progress Note Date: 02/19/24 Francisco Cao is a a 73 year old male patient who presented to the ER from [facility] with complaints of weakness and low blood sugar. Patient also was found to have hypotension. Patient was recently admitted and treated for TIA and A- fib. Patient denies any chest pain or shortness of breath. Patient has chronic lower extremity lymphedema with open wound to left heel. Patient denies any nausea vomiting or diarrhea. During last admission Lantus was decreased but patient still having episodes of low blood sugar. Patient has past medical history of atrial fibrillation, CHF, COPD, diabetes mellitus, eye disorder, hyperlipidemia, hypertension, prostate disorder, thyroid disorder and chronic lymphedema to bilateral legs. Chest x-ray completed showing bibasilar atelectasis favored over infiltrate with small bilateral pleural effusion no overt pulmonary edema prominent right helium consider short-term follow-up CT of chest. EKG completed showing A-fib. Lab work revealing negative troponin creatinine 0.79 bun 23. White blood cell 13.3, hemoglobin 11.4. UA negative. At this time patient will be admitted long-acting insulin DC'd patient maintained on sliding scale coverage. Will consult cardiology services for A- fib and hypotension. Will also consult infectious disease for lower extremity wound. Blood culture ordered at this time patient denies chest pain or shortness of breath. Patient denies nausea vomiting or diarrhea. Patient denies any urinary burning or frequency On 02/17/2024 patient was seen and examined on the medical floor he is alert and oriented x 3 in no apparent distress he is still having episodes of hypoglycemia and episodes of hypotension medications are being adjusted otherwise patient denies any complaints there is no fever or chills no headache or dizziness no chest pain no shortness of breath no cough no nausea or vomiting no abdominal pain no diarrhea and no urinary symptoms On 02/18/2024 patient is alert and oriented x 3. Patient remains on IV Kefzol. Vascular surgery consulted for possible debridement. Sliding scale insulin d/c glipizide added. Medications adjusted per cardiology. Patient denies chest pain or shortness of breath. Patient denies nausea vomiting or diarrhea. Patient denies any urinary burning or frequency On 02/19/2024 patient was seen and examined on the medical floor he is alert and oriented x 3 in no apparent distress he is complaining of generalized weakness otherwise he denies any complaints there is no fever or chills no headache or dizziness no chest pain no shortness of breath no cough no nausea or vomiting no abdominal pain no diarrhea and no urinary symptoms. He remains on IV Kefzol for lower extremity cellulitis, he is scheduled for debridement of his heel ulcer today, will continue to follow closely. Objective - Vital Signs Vital signs: Vital Signs Temp 98.1 F 02/19/24 07:59 Pulse 70 02/19/24 09:02 Resp 17 02/19/24 07:59 BP 123/73 02/19/24 07:59 Pulse Ox 98 02/19/24 08:56 FiO2 21 02/19/24 08:56 Intake & Output 02/18/24 02/19/24 02/19/24 18:59 06:59 18:59 Intake Total 236 Output Total 1800 1575 Balance -1564 -1575 Intake: Oral 236 Output: Urine 1800 775 Stool 800 Other: Voiding Method External Catheter External Catheter External Catheter # Bowel Movements 4 3 - Exam Head normocephalic Neck supple Lungs clear to auscultation bilaterally no wheezing or crackles Heart irregular heart rate known A-fib Abdomen is soft nontender nondistended positive bowel sounds no hepatosplenomegaly Extremities bilateral lower extremity lymphedema. Left heel ulcer Neuro alert and orientated to 3 - Labs CBC & Chem 7: 02/19/24 03:05 02/19/24 03:05 Labs: Abnormal Lab Results - Last 24 Hours (Table) 02/18/24 02/18/24 02/18/24 Range/Units 11:57 17:22 20:17 RBC (4.40-5.60) X 10*6/uL Hgb (13.0-17.0) g/dL Hct (39.6-50.0) % MCH (27.0-32.0) pg MCHC (32.0-37.0) g/dL RDW (11.5-14.5) % MPV (9.5-12.2) FL BUN/Creatinine Ratio (12.00-20.00) Ratio Glucose (70-110) mg/dL POC Glucose (mg/dL) 236 H 242 H 228 H (70-110) mg/dL Alkaline Phosphatase (41-126) U/L Total Protein (6.2-8.2) g/dL Albumin (3.8-4.9) g/dL Albumin/Globulin Ratio (1.60-3.17) Ratio 02/19/24 02/19/24 02/19/24 Range/Units 03:05 03:05 06:08 RBC 4.17 L (4.40-5.60) X 10*6/uL Hgb 10.4 L (13.0-17.0) g/dL Hct 33.7 L (39.6-50.0) % MCH 24.9 L (27.0-32.0) pg MCHC 30.9 L (32.0-37.0) g/dL RDW 24.8 H (11.5-14.5) % MPV 9.1 L (9.5-12.2) FL BUN/Creatinine Ratio 21.25 H (12.00-20.00) Ratio Glucose 205 H (70-110) mg/dL POC Glucose (mg/dL) 177 H (70-110) mg/dL Alkaline Phosphatase 165 H (41-126) U/L Total Protein 5.3 L (6.2-8.2) g/dL Albumin 2.8 L (3.8-4.9) g/dL Albumin/Globulin Ratio 1.12 L (1.60-3.17) Ratio Microbiology - Last 24 Hours (Table) 02/16/24 11:57 Blood Culture Gram Stain - Preliminary Blood Blood Culture - Preliminary Staphylococcus epidermidis Molecular ID Assessment and Plan Plan: 1. Hypoglycemia. Long-acting insulin held sliding scale added 2. Hypotension. Cardiology services consulted parameter set to cardiac medication 3. Left heel ulcer. Infectious disease services consulted 4. History of recent new onset atrial fibrillation status post cardioversion. Patient is back into atrial fibrillation maintained on Eliquis 5. History of COPD 6. History of chronic bilateral lower extremity lymphedema 7. History of CHF 8. History of morbid obesity 9. History of hyperlipidemia 10. History of hypothyroidism 11. History of diabetes mellitus type 2 DVT prophylaxis Eliquis. GI prophylaxis Protonix Cardiology services consulted Infectious disease services consulted Blood culture ordered
[2024-02-19] MEDS: AMIODARONE 200 MG TAB PO SCH (11:11)
[2024-02-19] MEDS ORDERED: MIDAZOLAM 2 MG/2 ML VIAL ONE (13:09)
[2024-02-19] MEDS ORDERED: KETAMINE HCL IN 0.9 % NACL 50 MG/5 ML SYRINGE ONE (13:09)
[2024-02-19] MEDS ORDERED: LIDOCAINE 1% INJ 10MG/ML (20 ML MDV) ONE (13:09)
[2024-02-19] MEDS ORDERED: fentaNYL (PF) 50 MCG/ML 2 ML AMP ONE (13:09)
[2024-02-19] MEDS ORDERED: PROPOFOL 10 MG/ML 20 ML VIAL IV ONE (13:09)
[2024-02-19] MEDS: SODIUM CHLORIDE 0.9% 1,000 ML IV ONE ×2 (13:12→13:27)
[2024-02-19] MEDS: LIDOCAINE 1% INJ 10MG/ML (20 ML MDV) SQ ONE (13:27)
--- NOTE | 2024-02-19 15:06 | OP ---
OPERATIVE REPORT DATE OF SERVICE : PREOPERATIVE DIAGNOSIS: Infected wound, left heel. Measurement is 3 x 3.5 cm. POSTOPERATIVE DIAGNOSIS: Infected wound, left heel. Measurement is 3 x 3.5 x 0.5 cm. DESCRIPTION OF PROCEDURE: The patient was brought to the operating room. Foot was prepped and draped applied in a sterile manner. 1% lidocaine was infiltrated at the heel area and with IV sedation. Using sharp knife with debridement, incision was made deep into skin fat and subcutaneous tissue. The necrotic tissue was removed, which was sent for deep culture. There were some bleeding points which were electrocoagulated. Wound was irrigated with saline. Aquacel silver rope applied to the wound. Pressure dressing applied. Patient tolerated the procedure well and transferred to recovery room in satisfactory condition. We will change the dressing on Wednesday, nonweightbearing. MMODL / IJN: [id number] /
[2024-02-19 17:24] LABS: Glucose,Whole Blood 146 mg/dL (70-110)
[2024-02-19 20:06] LABS: Glucose,Whole Blood 185 mg/dL (70-110)
[2024-02-20 05:28] LABS: Glucose,Whole Blood 101 mg/dL (70-110)
--- NOTE | 2024-02-20 09:36 | P.PN ---
Subjective Progress Note Date: 02/20/24 Francisco Cao is a a 73 year old male patient who presented to the ER from [facility] with complaints of weakness and low blood sugar. Patient also was found to have hypotension. Patient was recently admitted and treated for TIA and A- fib. Patient denies any chest pain or shortness of breath. Patient has chronic lower extremity lymphedema with open wound to left heel. Patient denies any nausea vomiting or diarrhea. During last admission Lantus was decreased but patient still having episodes of low blood sugar. Patient has past medical history of atrial fibrillation, CHF, COPD, diabetes mellitus, eye disorder, hyperlipidemia, hypertension, prostate disorder, thyroid disorder and chronic lymphedema to bilateral legs. Chest x-ray completed showing bibasilar atelectasis favored over infiltrate with small bilateral pleural effusion no overt pulmonary edema prominent right helium consider short-term follow-up CT of chest. EKG completed showing A-fib. Lab work revealing negative troponin creatinine 0.79 bun 23. White blood cell 13.3, hemoglobin 11.4. UA negative. At this time patient will be admitted long-acting insulin DC'd patient maintained on sliding scale coverage. Will consult cardiology services for A- fib and hypotension. Will also consult infectious disease for lower extremity wound. Blood culture ordered at this time patient denies chest pain or shortness of breath. Patient denies nausea vomiting or diarrhea. Patient denies any urinary burning or frequency On 02/17/2024 patient was seen and examined on the medical floor he is alert and oriented x 3 in no apparent distress he is still having episodes of hypoglycemia and episodes of hypotension medications are being adjusted otherwise patient denies any complaints there is no fever or chills no headache or dizziness no chest pain no shortness of breath no cough no nausea or vomiting no abdominal pain no diarrhea and no urinary symptoms On 02/18/2024 patient is alert and oriented x 3. Patient remains on IV Kefzol. Vascular surgery consulted for possible debridement. Sliding scale insulin d/c glipizide added. Medications adjusted per cardiology. Patient denies chest pain or shortness of breath. Patient denies nausea vomiting or diarrhea. Patient denies any urinary burning or frequency On 02/19/2024 patient was seen and examined on the medical floor he is alert and oriented x 3 in no apparent distress he is complaining of generalized weakness otherwise he denies any complaints there is no fever or chills no headache or dizziness no chest pain no shortness of breath no cough no nausea or vomiting no abdominal pain no diarrhea and no urinary symptoms. He remains on IV Kefzol for lower extremity cellulitis, he is scheduled for debridement of his heel ulcer today, will continue to follow closely. On 02/20/2024 patient is alert and oriented x 3. Status postdebridement with Dr. Nicole. Dressing is clean dry and intact. Cardiology services are following medications have been adjusted. Current vital signs temp 98.1, heart rate 87, respiratory rate 16, blood pressure 124/69 with a pulse ox of 99% on room air patient remains on IV Kefzol. Blood culture is positive infectious disease services following. Patient denies chest pain or shortness of breath. Patient denies nausea vomiting or diarrhea. Patient denies any urinary burning or frequency Objective - Vital Signs Vital signs: Vital Signs Temp 98.1 F 02/20/24 07:54 Pulse 107 H 02/20/24 08:50 Resp 16 02/20/24 07:54 BP 124/69 02/20/24 07:54 Pulse Ox 100 02/20/24 08:43 FiO2 21 02/19/24 08:56 Intake & Output 02/19/24 02/20/24 02/20/24 18:59 06:59 18:59 Intake Total 400 540 Output Total 1005 601 Balance -605 -61 Intake: IV 400 Oral 540 Output: Urine 1000 600 Stool 1 Estimated Blood Loss 5 Other: Voiding Method External Catheter External Catheter # Voids 1 - Exam Head normocephalic Neck supple Lungs clear to auscultation bilaterally no wheezing or crackles Heart irregular heart rate known A-fib Abdomen is soft nontender nondistended positive bowel sounds no hepatosplenomegaly Extremities bilateral lower extremity lymphedema. Left heel ulcer Neuro alert and orientated to 3 - Labs CBC & Chem 7: 02/19/24 03:05 02/19/24 03:05 Labs: Abnormal Lab Results - Last 24 Hours (Table) 02/19/24 02/19/24 02/19/24 Range/Units 03:05 03:05 17:19 RBC 4.17 L (4.40-5.60) X 10*6/uL Hgb 10.4 L (13.0-17.0) g/dL Hct 33.7 L (39.6-50.0) % MCH 24.9 L (27.0-32.0) pg MCHC 30.9 L (32.0-37.0) g/dL RDW 24.8 H (11.5-14.5) % MPV 9.1 L (9.5-12.2) FL BUN/Creatinine Ratio 21.25 H (12.00-20.00) Ratio Glucose 205 H (70-110) mg/dL POC Glucose (mg/dL) 146 H (70-110) mg/dL Alkaline Phosphatase 165 H (41-126) U/L Total Protein 5.3 L (6.2-8.2) g/dL Albumin 2.8 L (3.8-4.9) g/dL Albumin/Globulin Ratio 1.12 L (1.60-3.17) Ratio 02/19/24 Range/Units 20:04 RBC (4.40-5.60) X 10*6/uL Hgb (13.0-17.0) g/dL Hct (39.6-50.0) % MCH (27.0-32.0) pg MCHC (32.0-37.0) g/dL RDW (11.5-14.5) % MPV (9.5-12.2) FL BUN/Creatinine Ratio (12.00-20.00) Ratio Glucose (70-110) mg/dL POC Glucose (mg/dL) 185 H (70-110) mg/dL Alkaline Phosphatase (41-126) U/L Total Protein (6.2-8.2) g/dL Albumin (3.8-4.9) g/dL Albumin/Globulin Ratio (1.60-3.17) Ratio Microbiology - Last 24 Hours (Table) 02/16/24 11:57 Blood Culture Gram Stain - Final Blood Blood Culture - Final Staphylococcus epidermidis Molecular ID Assessment and Plan Assessment: 1. Hypoglycemia. Long-acting insulin held sliding scale added 2. Hypotension. Cardiology services consulted parameter set to cardiac medication 3. Left heel ulcer. Infectious disease services consulted. Status post surgical debridement 4. History of recent new onset atrial fibrillation status post cardioversion. Patient is back into atrial fibrillation maintained on Eliquis 5. History of COPD 6. History of chronic bilateral lower extremity lymphedema 7. History of CHF 8. History of morbid obesity 9. History of hyperlipidemia 10. History of hypothyroidism 11. History of diabetes mellitus type 2 DVT prophylaxis Eliquis. GI prophylaxis Protonix Cardiology services consulted Patient currently on IV antibiotics Vascular surgery consulted Infectious disease services consulted Blood culture ordered
[2024-02-20 10:20] LABS: Anisocytosis Moderate; Basophils % (A) 1 %; Eosinophils # (A) 0.2 k/uL (0-0.7); Eosinophils % (A) 3 %; HGB 10.9 gm/dL (13.0-17.5); Hypochromasia Marked; Lymphocytes # (A) 1.1 k/uL (1.0-4.8); Lymphocytes % (A) 20 %; MCH 25.9 pg (25.0-35.0); MCHC 31.3 g/dL (31.0-37.0); MCV 82.7 fL (80.0-100.0); Mean Platelet Volume 6.8; Microcytosis Slight; Monocytes # (A) 0.3 k/uL (0-1.0); Monocytes % (A) 6 %; Neutrophils # (A) 3.9 k/uL (1.3-7.7); Neutrophils % (A) 70 %; Platelet Count 290 k/uL (150-450); RBC 4.23 m/uL (4.30-5.90); WBC 5.6 k/uL (3.8-10.6)
[2024-02-20 10:36] LABS: ALT 10 U/L (4-49); AST 21 U/L (17-59); African American GFR (CKD) >90 (>60 ml/min/1.73 sqM); Albumin 2.5 g/dL (3.5-5.0); Albumin/Globulin Ratio 0.8; Alkaline Phosphatase 155 U/L (38-126); Anion Gap 5 mmol/L; Blood Urea Nitrogen 13 mg/dL (9-20); Calcium 8.6 mg/dL (8.4-10.2); Carbon Dioxide 31 mmol/L (22-30); Chloride 99 mmol/L (98-107); Glucose 128 mg/dL (74-99); Non-African American GFR(CKD) >90 (>60 ml/min/1.73 sqM); Potassium 3.7 mmol/L (3.5-5.1); Sodium 135 mmol/L (137-145); Total Protein 5.5 g/dL (6.3-8.2)
[2024-02-20 12:19] LABS: Glucose,Whole Blood 204 mg/dL (70-110)
--- NOTE | 2024-02-20 12:42 | P.PN ---
Subjective Progress Note Date: 02/19/24 Principal diagnosis: Reason for follow-up is left heel wound left leg cellulitis and leukocytosis Patient is a 73-year-old male with a past medical history significant for hypertension hyperlipidemia diabetes mellitus COPD heart failure atrial fibrillation and intermediate resident patient has been sent to the ER for evaluation of hypotension and hypoglycemia noticed at the intermediate, patient did have a necrotic wound to the left heel and concern for secondary cellulitis. On today's evaluation that is Patient is status post surgical debridement of his left heel wound by vascular surgery on 02/19/2024. On today's evaluation that is 02/19/2024,the patient remains to be afebrile, patient is on room air not requiring supplemental oxygen and denies any shortness of breath no chest pain or cough.Patient denies having any nausea or vomiting, no abdominal pain and no diarrhea has been reported, denies any worsening pain to the left knee. Patient white count is 5.95, creatinine 0.8 blood culture with Staphylococcus epidermidis Objective - Vital Signs Vital signs: Vital Signs Temp 98.1 F 02/19/24 07:59 Pulse 70 02/19/24 09:02 Resp 17 02/19/24 07:59 BP 123/73 02/19/24 07:59 Pulse Ox 98 02/19/24 08:56 FiO2 21 02/19/24 08:56 Intake & Output 02/18/24 02/19/24 02/19/24 18:59 06:59 18:59 Intake Total 236 Output Total 1800 1575 Balance -1564 -1575 Intake: Oral 236 Output: Urine 1800 775 Stool 800 Other: Voiding Method External Catheter External Catheter External Catheter # Bowel Movements 4 3 - Exam GENERAL DESCRIPTION: An elderly male lying in bed in no distress RESPIRATORY SYSTEM: Unlabored breathing , decreased breath sounds at bases HEART: S1 S2 regular rate and rhythm , ABDOMEN: Soft , no tenderness EXTREMITIES: Left heel with a necrotic wound surrounding redness slightly decreased left leg redness has decreased - Labs CBC & Chem 7: 02/19/24 03:05 02/19/24 03:05 Labs: Abnormal Lab Results - Last 24 Hours (Table) 02/18/24 02/18/24 02/19/24 Range/Units 17:22 20:17 03:05 RBC 4.17 L (4.40-5.60) X 10*6/uL Hgb 10.4 L (13.0-17.0) g/dL Hct 33.7 L (39.6-50.0) % MCH 24.9 L (27.0-32.0) pg MCHC 30.9 L (32.0-37.0) g/dL RDW 24.8 H (11.5-14.5) % MPV 9.1 L (9.5-12.2) FL BUN/Creatinine Ratio (12.00-20.00) Ratio Glucose (70-110) mg/dL POC Glucose (mg/dL) 242 H 228 H (70-110) mg/dL Alkaline Phosphatase (41-126) U/L Total Protein (6.2-8.2) g/dL Albumin (3.8-4.9) g/dL Albumin/Globulin Ratio (1.60-3.17) Ratio 02/19/24 02/19/24 Range/Units 03:05 06:08 RBC (4.40-5.60) X 10*6/uL Hgb (13.0-17.0) g/dL Hct (39.6-50.0) % MCH (27.0-32.0) pg MCHC (32.0-37.0) g/dL RDW (11.5-14.5) % MPV (9.5-12.2) FL BUN/Creatinine Ratio 21.25 H (12.00-20.00) Ratio Glucose 205 H (70-110) mg/dL POC Glucose (mg/dL) 177 H (70-110) mg/dL Alkaline Phosphatase 165 H (41-126) U/L Total Protein 5.3 L (6.2-8.2) g/dL Albumin 2.8 L (3.8-4.9) g/dL Albumin/Globulin Ratio 1.12 L (1.60-3.17) Ratio Microbiology - Last 24 Hours (Table) 02/16/24 11:57 Blood Culture Gram Stain - Preliminary Blood Blood Culture - Preliminary Staphylococcus epidermidis Molecular ID Assessment and Plan (1) Bilateral lower leg cellulitis Current Visit: No Status: Acute Code(s): L03.116 - CELLULITIS OF LEFT LOWER LIMB; L03.115 - CELLULITIS OF RIGHT LOWER LIMB SNOMED Code(s): 191702668 (2) Penicillin allergy Current Visit: No Status: Acute Code(s): Z88.0 - ALLERGY STATUS TO PENICILLIN SNOMED Code(s): 42106921 Plan: 1patient presented to the hospital with hyperglycemia and apparently was noticed to be mildly hypertensive patient did have a necrotic wound to the left heel and a component cellulitis of bilateral lower extremity likely from gram- positive skin karan 2-vascular surgery has been consulted and the patient is status post debridement of the wound await cultures 3-positive blood culture with staph epi possible contamination less likely related to his left heel wound 4-patient to continue with the cefazolin while waiting for the OR culture to finalize Dictation was produced using [employer] dictation software. please excuse any grammatical, word or spelling errors.
--- NOTE | 2024-02-20 15:04 | P.PN ---
Subjective Progress Note Date: 02/20/24 Principal diagnosis: Reason for follow-up is left heel wound left leg cellulitis and leukocytosis Patient is a 73-year-old male with a past medical history significant for hypertension hyperlipidemia diabetes mellitus COPD heart failure atrial fibrillation and long term resident patient has been sent to the ER for evaluation of hypotension and hypoglycemia noticed at the long term, patient did have a necrotic wound to the left heel and concern for secondary cellulitis. On today's evaluation that is Patient is status post surgical debridement of his left heel wound by vascular surgery on 02/19/2024. On today's evaluation that is 02/20/2024, the patient continues to be afebrile, the patient is on room air and breathing comfortably, the Pt denies having any chest pain or cough, the patient denies having any abdominal pain no vomiting or any diarrhea has been reported by the nursing staff denies pain to the left heel wound. Patient white count is 5.6, creatinine 0.66 local cultures pending Objective - Vital Signs Vital signs: Vital Signs Temp 98.1 F 02/20/24 07:54 Pulse 111 H 02/20/24 12:14 Resp 16 02/20/24 07:54 BP 124/69 02/20/24 07:54 Pulse Ox 100 02/20/24 08:43 FiO2 21 02/19/24 08:56 Intake & Output 02/19/24 02/20/24 02/20/24 18:59 06:59 18:59 Intake Total 400 540 416 Output Total 1005 601 Balance -605 -61 416 Intake: IV 400 Oral 540 416 Output: Urine 1000 600 Stool 1 Estimated Blood Loss 5 Other: Voiding Method External Catheter External Catheter External Catheter # Voids 1 - Exam GENERAL DESCRIPTION: An elderly male lying in bed in no distress RESPIRATORY SYSTEM: Unlabored breathing , decreased breath sounds at bases HEART: S1 S2 regular rate and rhythm , ABDOMEN: Soft , no tenderness EXTREMITIES: Left heel with a necrotic wound surrounding redness slightly decreased left leg redness has decreased - Labs CBC & Chem 7: 02/20/24 09:31 02/20/24 09:31 Labs: Abnormal Lab Results - Last 24 Hours (Table) 02/19/24 02/19/24 02/20/24 Range/Units 17:19 20:04 09:31 RBC 4.23 L (4.30-5.90) m/uL Hgb 10.9 L (13.0-17.5) gm/dL Hct 35.0 L (39.0-53.0) % RDW 22.0 H (11.5-15.5) % Sodium (137-145) mmol/L Carbon Dioxide (22-30) mmol/L Glucose (74-99) mg/dL POC Glucose (mg/dL) 146 H 185 H (70-110) mg/dL Alkaline Phosphatase (38-126) U/L Total Protein (6.3-8.2) g/dL Albumin (3.5-5.0) g/dL 02/20/24 02/20/24 Range/Units 09:31 12:18 RBC (4.30-5.90) m/uL Hgb (13.0-17.5) gm/dL Hct (39.0-53.0) % RDW (11.5-15.5) % Sodium 135 L (137-145) mmol/L Carbon Dioxide 31 H (22-30) mmol/L Glucose 128 H (74-99) mg/dL POC Glucose (mg/dL) 204 H (70-110) mg/dL Alkaline Phosphatase 155 H (38-126) U/L Total Protein 5.5 L (6.3-8.2) g/dL Albumin 2.5 L (3.5-5.0) g/dL Microbiology - Last 24 Hours (Table) 02/16/24 11:57 Blood Culture Gram Stain - Final Blood Blood Culture - Final Staphylococcus epidermidis Molecular ID Assessment and Plan (1) Bilateral lower leg cellulitis Current Visit: No Status: Acute Code(s): L03.116 - CELLULITIS OF LEFT LOWER LIMB; L03.115 - CELLULITIS OF RIGHT LOWER LIMB SNOMED Code(s): 466521908 (2) Penicillin allergy Current Visit: No Status: Acute Code(s): Z88.0 - ALLERGY STATUS TO PENICILLIN SNOMED Code(s): 14130438 Plan: 1patient presented to the hospital with hyperglycemia and apparently was noticed to be mildly hypertensive patient did have a necrotic wound to the left heel and a component cellulitis of bilateral lower extremity likely from gram- positive skin karan 2-vascular surgery has been consulted and the patient is status post debridement of the wound cultures are currently pending 3-positive blood culture with staph epi possible contamination less likely related to his left heel wound 4-patient to continue with the cefazolin while waiting for the OR culture to finalize to determine discharge antibiotics Dictation was produced using [employer] dictation software. please excuse any grammatical, word or spelling errors. Time with Patient: Less than 30
[2024-02-20 17:40] LABS: Glucose,Whole Blood 199 mg/dL (70-110)
[2024-02-20 20:54] LABS: Glucose,Whole Blood 206 mg/dL (70-110)
[2024-02-21 02:17] LABS: Glucose,Whole Blood 176 mg/dL (70-110)
[2024-02-21 06:13] LABS: Glucose,Whole Blood 135 mg/dL (70-110)
[2024-02-21 09:08] LABS: ALT 11 U/L (10-49); AST 17 U/L (14-35); Albumin 2.9 g/dL (3.8-4.9); Albumin/Globulin Ratio 1.16 Ratio (1.60-3.17); Alkaline Phosphatase 164 U/L (41-126); BUN/Creat Ratio 14.88 Ratio (12.00-20.00); Blood Urea Nitrogen 11.9 mg/dL (9.0-27.0); Calcium 8.6 mg/dL (8.7-10.3); Carbon Dioxide 27.7 mmol/L (21.6-31.8); Chloride 103 mmol/L (96-109); Globulin 2.5 g/dL (1.6-3.3); Glucose 179 mg/dL (70-110); Potassium 3.8 mmol/L (3.5-5.5); Sodium 140 mmol/L (135-145); Total Bilirubin 0.5 mg/dL (0.3-1.2); Total Protein 5.4 g/dL (6.2-8.2)
[2024-02-21 09:45] LABS: Basophils # (A) 0.05 X 10*3/uL (0.00-0.10); Basophils % (A) 0.8 %; Eosinophils # (A) 0.18 X 10*3/uL (0.04-0.35); Eosinophils % (A) 2.8 %; HCT 34.2 % (39.6-50.0); HGB 10.4 g/dL (13.0-17.0); Lymphocytes # (A) 1.39 X 10*3/uL (0.90-5.00); Lymphocytes % (A) 21.4 %; MCH 25.1 pg (27.0-32.0); MCHC 30.4 g/dL (32.0-37.0); MCV 82.6 FL (80.0-97.0); Mean Platelet Volume 9.6 FL (9.5-12.2); Monocytes # (A) 0.56 X 10*3/uL (0.20-1.00); Monocytes % (A) 8.6 %; NRBC Per 100 WBC 0 X 10*3/uL (0.00-0.01); Neutrophils % (A) 65.9 %; Platelet Count 274 X 10*3/uL (140-440); RBC 4.14 X 10*6/uL (4.40-5.60); RDW 25.5 % (11.5-14.5); WBC 6.51 X 10*3/uL (4.50-10.00)
[2024-02-21 11:45] LABS: Glucose,Whole Blood 188 mg/dL (70-110)
--- NOTE | 2024-02-21 14:21 | P.PN ---
Progress Note - Text 73 gentleman right foot second toe potation if change dressing patient has some phimosis of the dorsal aspect of the foot placed extra silver patient is on IV antibiotic under care of infectious disease dressing should be changed every 48 hours culture came back as a staph epidermis
--- NOTE | 2024-02-21 15:02 | P.PN ---
Progress Note - Text 73-year-old gentleman patient had a left foot big toe wound debridement culture came back as a staph epidermis today will change dressing using Medihoney gel is an IV antibiotic under care of infectious disease we will change the dressing daily using Medihoney gel patient will need offloading shoes patient goes home will follow the wound clinic at [facility] next Wednesday
--- NOTE | 2024-02-21 16:43 | CDI ---
Documentation Clarification Form Date: 02/21/2024 04:20:42 PM From: Amy Mendez RN, CCDS Phone: [phone] Admit Date: 02/18/2024 08:23:00 AM Patient Name: Francisco Cao Visit Number: [id number] Discharge Date: ATTENTION: The Clinical Documentation Specialists (CDI) and [facility] Coding Staff appreciate your assistance in clarifying documentation. Please respond to the clarification below the line at the bottom and electronically sign. The CDI & [facility] Coding staff will review the response and follow-up if needed. Please note: Queries are made part of the Legal Health Record. If you have any questions, please contact the author of this message via ITS. Doctor: Aquilino Garber Cellulitis is documented in the progress notes and the patient has Diabetes. Additional clarification regarding the type of cellulitis is requested. History/risk factors: Atrial Fibrillation, Heart Failure, COPD, Diabetes Mellitus, Eye Disorder, Hyperlipidemia, Hypertension, Prostate Disorder, Sleep Apnea/CPAP/BIPAP, Thyroid Disorder. Presented with hypoglycemia, and wound of lower extremity. Clinical Indicators: 02/15 ID: "Patient presented to the hospital with hyperglycemia. "Patient did have a necrotic wound to the left heel and a component cellulitis of bilateral lower extremity." 02/18 IM: "He remains on IV Kefzol for lower extremity cellulitis. He is scheduled for debridement of his heel ulcer." 02/15-02/20 POC glucose: [phone] Surgery consult: "pressure ulcer left heel with full-thickness skin necrosis with mild redness with some fluctuation, consulted for wound debridement." Treatment: s/p debridement of infected wound left heel on 02/18; IV Cefazolin 1gm Q8H 02/15-02/16; IV Cefazolin 2gm Q8H 02/16-02/20; Glucotrol 2.5mg TID 02/17-02/20; Aspart SS 02/15-02/17; Actos 30mg daily 02/16-02/20 Please clarify the etiology of the cellulitis, if known: [ xxx ] Cellulitis is a diabetic skin complication [ ] Cellulitis is not a diabetic skin complication [ ] Other, please specify: [ ] Unable to determine MTDD
--- NOTE | 2024-02-21 17:06 | CDI ---
Documentation Clarification Form Date: 02/21/2024 04:44:58 PM From: Amy Mendez RN, CCDS Phone: [phone] Admit Date: 02/18/2024 08:23:00 AM Patient Name: Francisco Cao Visit Number: [id number] Discharge Date: ATTENTION: The Clinical Documentation Specialists (CDI) and [facility] Coding Staff appreciate your assistance in clarifying documentation. Please respond to the clarification below the line at the bottom and electronically sign. The CDI & [facility] Coding staff will review the response and follow-up if needed. Please note: Queries are made part of the Legal Health Record. If you have any questions, please contact the author of this message via ITS. Doctor Ish Montoya debridement is documented in the Op note and progress notes. Additional clarification regarding the procedure is requested. History/Risk Factors: Atrial Fibrillation, Heart Failure, COPD, Diabetes Mellitus, Eye Disorder, Hyperlipidemia, Hypertension, Prostate Disorder, Sleep Apnea/CPAP/BIPAP, Thyroid Disorder. Presented with hypoglycemia, and wound of lower extremity. Clinical Indicators: 02/18 IM: "He remains on IV Kefzol for lower extremity cellulitis. He is scheduled for debridement of his heel ulcer." 02/17 Surgery consult: "pressure ulcer left heel with full-thickness skin necrosis with mild redness with some fluctuation, consulted for wound debridement." 02/18 Op note: "Using sharp knife with debridement, incision was made deep into skin fat and subcutaneous tissue. The necrotic tissue was removed, which was sent for deep culture." Treatment: s/p debridement on 02/18 Please clarify the type of procedure performed: [ X ] Excisional debridement (the removal of necrotic, devitalized tissue or slough by means of cutting away of tissue) [ ] Non-excisional debridement (the removal of necrotic, devitalized tissue or slough by means of flushing, brushing, or washing. (Irrigation) [ ] Other; please specify [ ] Unable to determine Five elements required for accurate and compliant documentation of a debridement: Technique used (e.g., excisional, excised, cutting, brushing, jet lavage etc.) Instrument(s) used (e.g., scalpel, curette, etc.) Nature of the tissue removed (e.g., necrotic, devitalized tissues, non-viable tissue, etc.) Appearance and size of the wound (e.g., down to fresh bleeding tissue, 7cm x 10cm, etc.) Depth of the debridement* (e.g., skin, subcutaneous tissue, fascia, muscle, bone, etc.) MTDD
[2024-02-21 17:24] LABS: Glucose,Whole Blood 182 mg/dL (70-110)
--- NOTE | 2024-02-21 17:48 | P.PN ---
Subjective Progress Note Date: 02/21/24 Francisco Cao is a a 73 year old male patient who presented to the ER from [facility] with complaints of weakness and low blood sugar. Patient also was found to have hypotension. Patient was recently admitted and treated for TIA and A- fib. Patient denies any chest pain or shortness of breath. Patient has chronic lower extremity lymphedema with open wound to left heel. Patient denies any nausea vomiting or diarrhea. During last admission Lantus was decreased but patient still having episodes of low blood sugar. Patient has past medical history of atrial fibrillation, CHF, COPD, diabetes mellitus, eye disorder, hyperlipidemia, hypertension, prostate disorder, thyroid disorder and chronic lymphedema to bilateral legs. Chest x-ray completed showing bibasilar atelectasis favored over infiltrate with small bilateral pleural effusion no overt pulmonary edema prominent right helium consider short-term follow-up CT of chest. EKG completed showing A-fib. Lab work revealing negative troponin creatinine 0.79 bun 23. White blood cell 13.3, hemoglobin 11.4. UA negative. At this time patient will be admitted long-acting insulin DC'd patient maintained on sliding scale coverage. Will consult cardiology services for A- fib and hypotension. Will also consult infectious disease for lower extremity wound. Blood culture ordered at this time patient denies chest pain or shortness of breath. Patient denies nausea vomiting or diarrhea. Patient denies any urinary burning or frequency On 02/17/2024 patient was seen and examined on the medical floor he is alert and oriented x 3 in no apparent distress he is still having episodes of hypoglycemia and episodes of hypotension medications are being adjusted otherwise patient denies any complaints there is no fever or chills no headache or dizziness no chest pain no shortness of breath no cough no nausea or vomiting no abdominal pain no diarrhea and no urinary symptoms On 02/18/2024 patient is alert and oriented x 3. Patient remains on IV Kefzol. Vascular surgery consulted for possible debridement. Sliding scale insulin d/c glipizide added. Medications adjusted per cardiology. Patient denies chest pain or shortness of breath. Patient denies nausea vomiting or diarrhea. Patient denies any urinary burning or frequency On 02/19/2024 patient was seen and examined on the medical floor he is alert and oriented x 3 in no apparent distress he is complaining of generalized weakness otherwise he denies any complaints there is no fever or chills no headache or dizziness no chest pain no shortness of breath no cough no nausea or vomiting no abdominal pain no diarrhea and no urinary symptoms. He remains on IV Kefzol for lower extremity cellulitis, he is scheduled for debridement of his heel ulcer today, will continue to follow closely. On 02/20/2024 patient is alert and oriented x 3. Status post debridement with Dr. Nicole. Dressing is clean dry and intact. Cardiology services are following medications have been adjusted. Current vital signs temp 98.1, heart rate 87, respiratory rate 16, blood pressure 124/69 with a pulse ox of 99% on room air patient remains on IV Kefzol. Blood culture is positive infectious disease services following. Patient denies chest pain or shortness of breath. Patient denies nausea vomiting or diarrhea. Patient denies any urinary burning or frequency On 02/21/2024 patient was seen and examined on the medical floor he is alert and oriented x 3 in no apparent distress, there is no fever or chills no headache or dizziness no chest pain no shortness of breath no cough no nausea or vomiting no abdominal pain no diarrhea no blood in the stools no burning with urination no frequency or urgency and no hematuria. Patient is still maintained on IV antibiotics, awaiting culture results and further recommendation from infectious disease, patient was reevaluated by vascular surgery, Dr. Nicole is recommending a boot. [facility] the [facility] 1 to 2 days Objective - Vital Signs Vital signs: Vital Signs Temp 98.3 F 02/21/24 14:00 Pulse 93 02/21/24 15:41 Resp 18 02/21/24 14:00 BP 118/74 02/21/24 14:00 Pulse Ox 99 02/21/24 14:00 FiO2 21 02/19/24 08:56 Intake & Output 02/20/24 02/21/24 02/21/24 18:59 06:59 18:59 Intake Total 770 236 118 Output Total 1200 1800 Balance -430 -1729 118 Weight 100.244 kg Intake: Oral 770 236 118 Output: Urine 1200 1800 Other: Voiding Method External Catheter External Catheter External Catheter - Exam Head normocephalic Neck supple Lungs clear to auscultation bilaterally no wheezing or crackles Heart irregular heart rate known A-fib Abdomen is soft nontender nondistended positive bowel sounds no hepatosplenomegaly Extremities bilateral lower extremity lymphedema. Left heel ulcer Neuro alert and orientated to 3 - Labs CBC & Chem 7: 02/21/24 03:16 02/21/24 03:16 Labs: Abnormal Lab Results - Last 24 Hours (Table) 02/20/24 02/21/24 02/21/24 Range/Units 20:53 02:16 03:16 RBC 4.14 L (4.40-5.60) X 10*6/uL Hgb 10.4 L (13.0-17.0) g/dL Hct 34.2 L (39.6-50.0) % MCH 25.1 L (27.0-32.0) pg MCHC 30.4 L (32.0-37.0) g/dL RDW 25.5 H (11.5-14.5) % Glucose (70-110) mg/dL POC Glucose (mg/dL) 206 H 176 H (70-110) mg/dL Calcium (8.7-10.3) mg/dL Alkaline Phosphatase (41-126) U/L Total Protein (6.2-8.2) g/dL Albumin (3.8-4.9) g/dL Albumin/Globulin Ratio (1.60-3.17) Ratio 02/21/24 02/21/24 02/21/24 Range/Units 03:16 06:11 11:43 RBC (4.40-5.60) X 10*6/uL Hgb (13.0-17.0) g/dL Hct (39.6-50.0) % MCH (27.0-32.0) pg MCHC (32.0-37.0) g/dL RDW (11.5-14.5) % Glucose 179 H (70-110) mg/dL POC Glucose (mg/dL) 135 H 188 H (70-110) mg/dL Calcium 8.6 L (8.7-10.3) mg/dL Alkaline Phosphatase 164 H (41-126) U/L Total Protein 5.4 L (6.2-8.2) g/dL Albumin 2.9 L (3.8-4.9) g/dL Albumin/Globulin Ratio 1.16 L (1.60-3.17) Ratio 09/09/24 Range/Units 17:16 RBC (4.40-5.60) X 10*6/uL Hgb (13.0-17.0) g/dL Hct (39.6-50.0) % MCH (27.0-32.0) pg MCHC (32.0-37.0) g/dL RDW (11.5-14.5) % Glucose (70-110) mg/dL POC Glucose (mg/dL) 182 H (70-110) mg/dL Calcium (8.7-10.3) mg/dL Alkaline Phosphatase (41-126) U/L Total Protein (6.2-8.2) g/dL Albumin (3.8-4.9) g/dL Albumin/Globulin Ratio (1.60-3.17) Ratio Assessment and Plan Plan: 1. Hypoglycemia. Long-acting insulin held sliding scale added 2. Hypotension. Cardiology services consulted parameter set to cardiac medication 3. Left heel ulcer. Infectious disease services consulted 4. History of recent new onset atrial fibrillation status post cardioversion. Patient is back into atrial fibrillation maintained on Eliquis 5. History of COPD 6. History of chronic bilateral lower extremity lymphedema 7. History of CHF 8. History of morbid obesity 9. History of hyperlipidemia 10. History of hypothyroidism 11. History of diabetes mellitus type 2 DVT prophylaxis Eliquis. GI prophylaxis Protonix Cardiology services consulted Infectious disease services consulted Blood culture ordered
[2024-02-21 20:45] LABS: Glucose,Whole Blood 240 mg/dL (70-110)
[2024-02-22 02:11] LABS: Glucose,Whole Blood 225 mg/dL (70-110)
[2024-02-22 06:41] LABS: Glucose,Whole Blood 156 mg/dL (70-110)
[2024-02-22 12:16] LABS: Glucose,Whole Blood 251 mg/dL (70-110)
--- NOTE | 2024-02-22 13:16 | P.PN ---
Subjective Progress Note Date: 02/21/24 Principal diagnosis: Reason for follow-up is left heel wound left leg cellulitis and leukocytosis Patient is a 73-year-old male with a past medical history significant for hypertension hyperlipidemia diabetes mellitus COPD heart failure atrial fibrillation and halfway resident patient has been sent to the ER for evaluation of hypotension and hypoglycemia noticed at the halfway, patient did have a necrotic wound to the left heel and concern for secondary cellulitis. On today's evaluation that is Patient is status post surgical debridement of his left heel wound by vascular surgery on 02/19/2024. On today's evaluation that is 02/21/2024, Patient is afebrile patient is currently on room air and denies having any shortness of breath, the patient denies any chest pain or cough, the patient denies any nausea vomiting did not have any abdominal pain and no diarrhea, denies pain to the left heel wound area. Patient white count 6.51, creatinine 0.8 Objective - Vital Signs Vital signs: Vital Signs Temp 97.5 F L 02/21/24 07:44 Pulse 90 02/21/24 07:58 Resp 16 02/21/24 07:44 BP 120/58 02/21/24 07:44 Pulse Ox 95 02/21/24 07:51 FiO2 21 02/19/24 08:56 Intake & Output 02/20/24 02/21/24 02/21/24 18:59 06:59 18:59 Intake Total 770 236 118 Output Total 1200 1800 Balance -430 1564 118 Intake: Oral 770 236 118 Output: Urine 1200 1800 Other: Voiding Method External Catheter External Catheter External Catheter - Exam GENERAL DESCRIPTION: An elderly male lying in bed in no distress RESPIRATORY SYSTEM: Unlabored breathing , decreased breath sounds at bases HEART: S1 S2 regular rate and rhythm , ABDOMEN: Soft , no tenderness EXTREMITIES: Left heel with a necrotic wound surrounding redness slightly decreased left leg redness has decreased - Labs CBC & Chem 7: 02/21/24 03:16 02/21/24 03:16 Labs: Abnormal Lab Results - Last 24 Hours (Table) 02/20/24 02/20/24 02/21/24 Range/Units 17:39 20:53 02:16 RBC (4.40-5.60) X 10*6/uL Hgb (13.0-17.0) g/dL Hct (39.6-50.0) % MCH (27.0-32.0) pg MCHC (32.0-37.0) g/dL RDW (11.5-14.5) % Glucose (70-110) mg/dL POC Glucose (mg/dL) 199 H 206 H 176 H (70-110) mg/dL Calcium (8.7-10.3) mg/dL Alkaline Phosphatase (41-126) U/L Total Protein (6.2-8.2) g/dL Albumin (3.8-4.9) g/dL Albumin/Globulin Ratio (1.60-3.17) Ratio 02/21/24 02/21/24 02/21/24 Range/Units 03:16 03:16 06:11 RBC 4.14 L (4.40-5.60) X 10*6/uL Hgb 10.4 L (13.0-17.0) g/dL Hct 34.2 L (39.6-50.0) % MCH 25.1 L (27.0-32.0) pg MCHC 30.4 L (32.0-37.0) g/dL RDW 25.5 H (11.5-14.5) % Glucose 179 H (70-110) mg/dL POC Glucose (mg/dL) 135 H (70-110) mg/dL Calcium 8.6 L (8.7-10.3) mg/dL Alkaline Phosphatase 164 H (41-126) U/L Total Protein 5.4 L (6.2-8.2) g/dL Albumin 2.9 L (3.8-4.9) g/dL Albumin/Globulin Ratio 1.16 L (1.60-3.17) Ratio 02/21/24 Range/Units 11:43 RBC (4.40-5.60) X 10*6/uL Hgb (13.0-17.0) g/dL Hct (39.6-50.0) % MCH (27.0-32.0) pg MCHC (32.0-37.0) g/dL RDW (11.5-14.5) % Glucose (70-110) mg/dL POC Glucose (mg/dL) 188 H (70-110) mg/dL Calcium (8.7-10.3) mg/dL Alkaline Phosphatase (41-126) U/L Total Protein (6.2-8.2) g/dL Albumin (3.8-4.9) g/dL Albumin/Globulin Ratio (1.60-3.17) Ratio Assessment and Plan (1) Bilateral lower leg cellulitis Current Visit: No Status: Acute Code(s): L03.116 - CELLULITIS OF LEFT LOWER LIMB; L03.115 - CELLULITIS OF RIGHT LOWER LIMB SNOMED Code(s): 403284095 (2) Penicillin allergy Current Visit: No Status: Acute Code(s): Z88.0 - ALLERGY STATUS TO PENICILLIN SNOMED Code(s): 40562716 Plan: 1patient presented to the hospital with hyperglycemia and apparently was noticed to be mildly hypertensive patient did have a necrotic wound to the left heel and a component cellulitis of bilateral lower extremity likely from gram- positive skin karan 2-vascular surgery has been consulted and the patient is status post debridement of the wound cultures are currently pending 3-positive blood culture with staph epi possible contamination less likely related to his left heel wound 4-patient is afebrile white count is normal, to continue with the cefazolin while waiting for the OR culture to finalize to determine discharge antibiotics Dictation was produced using [employer] dictation software. please excuse any g rammatical, word or spelling errors. Time with Patient: Less than 30
--- NOTE | 2024-02-22 13:17 | P.PN ---
Subjective Progress Note Date: 02/22/24 Principal diagnosis: Reason for follow-up is left heel wound left leg cellulitis and leukocytosis Patient is a 73-year-old male with a past medical history significant for hypertension hyperlipidemia diabetes mellitus COPD heart failure atrial fibrillation and intermediate resident patient has been sent to the ER for evaluation of hypotension and hypoglycemia noticed at the intermediate, patient did have a necrotic wound to the left heel and concern for secondary cellulitis. On today's evaluation that is Patient is status post surgical debridement of his left heel wound by vascular surgery on 02/19/2024. On today's evaluation that is 02/22/2024, patient has been afebrile, patient is breathing comfortably and is currently on room air, patient denies having any s ignificant cough no chest pain shortness of breath, patient denies nausea vomiting or diarrhea and no abdominal pain, no pain to the left heel wound patient has been concerned about losing his offloading shoe. No lab draw today cultures are currently pending Objective - Vital Signs Vital signs: Vital Signs Temp 98.1 F 02/22/24 07:50 Pulse 61 02/22/24 13:10 Resp 15 02/22/24 07:50 BP 122/73 02/22/24 13:10 Pulse Ox 97 02/22/24 07:50 FiO2 21 02/19/24 08:56 Intake & Output 02/21/24 02/22/24 02/22/24 18:59 06:59 18:59 Intake Total 118 474 Output Total 750 1750 Balance -632 -1750 474 Weight 100.244 kg Intake: Oral 118 474 Output: Urine 750 1750 Other: Voiding Method External Catheter External Catheter External Catheter - Exam GENERAL DESCRIPTION: An elderly male lying in bed in no distress RESPIRATORY SYSTEM: Unlabored breathing , decreased breath sounds at bases HEART: S1 S2 regular rate and rhythm , ABDOMEN: Soft , no tenderness EXTREMITIES: Left heel wound with minimal slough surrounding swelling redness i mproved no drainage - Labs CBC & Chem 7: 02/21/24 03:16 02/21/24 03:16 Labs: Abnormal Lab Results - Last 24 Hours (Table) 02/21/24 02/21/24 02/22/24 Range/Units 17:16 20:41 02:10 POC Glucose (mg/dL) 182 H 240 H 225 H (70-110) mg/dL 02/22/24 02/22/24 Range/Units 06:39 12:15 POC Glucose (mg/dL) 156 H 251 H (70-110) mg/dL Microbiology - Last 24 Hours (Table) 02/19/24 13:41 Anaerobic Culture - Preliminary Heel - Left Assessment and Plan (1) Bilateral lower leg cellulitis Current Visit: No Status: Acute Code(s): L03.116 - CELLULITIS OF LEFT LOWER LIMB; L03.115 - CELLULITIS OF RIGHT LOWER LIMB SNOMED Code(s): 766515194 (2) Penicillin allergy Current Visit: No Status: Acute Code(s): Z88.0 - ALLERGY STATUS TO PENICILLIN SNOMED Code(s): 48233091 Plan: 1patient presented to the hospital with hyperglycemia and apparently was noticed to be mildly hypertensive patient did have a necrotic wound to the left heel and a component cellulitis of bilateral lower extremity likely from gram- positive skin karan 2-vascular surgery has been consulted and the patient is status post debridement of the wound cultures are currently pending 3-positive blood culture with staph epi possible contamination less likely related to his left heel wound 4-patient is afebrile white count is normal, still waiting on the OR cultures to be finalized continue with the cefazolin multiple question concern answered especially offloading to prevent further worsening of the wound Dictation was produced using [employer] dictation software. please excuse any grammatical, word or spelling errors. Time with Patient: Less than 30
--- NOTE | 2024-02-22 16:14 | P.PN ---
Progress Note - Text Patient had a left heel wound debridement vital signs stable afebrile dressing has been changed with BlackArrowhoney gel dressing should be changed on a daily basis Plan is if patient goes home patient has appointment at wound clinic on Wednesday at 1245
--- NOTE | 2024-02-22 16:35 | P.PN ---
Subjective Progress Note Date: 02/22/24 Francisco Cao is a a 73 year old male patient who presented to the ER from [facility] with complaints of weakness and low blood sugar. Patient also was found to have hypotension. Patient was recently admitted and treated for TIA and A- fib. Patient denies any chest pain or shortness of breath. Patient has chronic lower extremity lymphedema with open wound to left heel. Patient denies any nausea vomiting or diarrhea. During last admission Lantus was decreased but patient still having episodes of low blood sugar. Patient has past medical history of atrial fibrillation, CHF, COPD, diabetes mellitus, eye disorder, hyperlipidemia, hypertension, prostate disorder, thyroid disorder and chronic lymphedema to bilateral legs. Chest x-ray completed showing bibasilar atelectasis favored over infiltrate with small bilateral pleural effusion no overt pulmonary edema prominent right helium consider short-term follow-up CT of chest. EKG completed showing A-fib. Lab work revealing negative troponin creatinine 0.79 bun 23. White blood cell 13.3, hemoglobin 11.4. UA negative. At this time patient will be admitted long-acting insulin DC'd patient maintained on sliding scale coverage. Will consult cardiology services for A- fib and hypotension. Will also consult infectious disease for lower extremity wound. Blood culture ordered at this time patient denies chest pain or shortness of breath. Patient denies nausea vomiting or diarrhea. Patient denies any urinary burning or frequency On 02/17/2024 patient was seen and examined on the medical floor he is alert and oriented x 3 in no apparent distress he is still having episodes of hypoglycemia and episodes of hypotension medications are being adjusted otherwise patient denies any complaints there is no fever or chills no headache or dizziness no chest pain no shortness of breath no cough no nausea or vomiting no abdominal pain no diarrhea and no urinary symptoms On 02/18/2024 patient is alert and oriented x 3. Patient remains on IV Kefzol. Vascular surgery consulted for possible debridement. Sliding scale insulin d/c glipizide added. Medications adjusted per cardiology. Patient denies chest pain or shortness of breath. Patient denies nausea vomiting or diarrhea. Patient denies any urinary burning or frequency On 02/19/2024 patient was seen and examined on the medical floor he is alert and oriented x 3 in no apparent distress he is complaining of generalized weakness otherwise he denies any complaints there is no fever or chills no headache or dizziness no chest pain no shortness of breath no cough no nausea or vomiting no abdominal pain no diarrhea and no urinary symptoms. He remains on IV Kefzol for lower extremity cellulitis, he is scheduled for debridement of his heel ulcer today, will continue to follow closely. On 02/20/2024 patient is alert and oriented x 3. Status post debridement with Dr. Nicole. Dressing is clean dry and intact. Cardiology services are following medications have been adjusted. Current vital signs temp 98.1, heart rate 87, respiratory rate 16, blood pressure 124/69 with a pulse ox of 99% on room air patient remains on IV Kefzol. Blood culture is positive infectious disease services following. Patient denies chest pain or shortness of breath. Patient denies nausea vomiting or diarrhea. Patient denies any urinary burning or frequency On 02/21/2024 patient was seen and examined on the medical floor he is alert and oriented x 3 in no apparent distress, there is no fever or chills no headache or dizziness no chest pain no shortness of breath no cough no nausea or vomiting no abdominal pain no diarrhea no blood in the stools no burning with urination no frequency or urgency and no hematuria. Patient is still maintained on IV antibiotics, awaiting culture results and further recommendation from infectious disease, patient was reevaluated by vascular surgery, Dr. Nicole is recommending a boot. [facility] 1 to 2 days On 02/22/2024 patient was seen and examined on the medical floor he is alert and oriented in no apparent distress there is no fever or chills no headache or dizziness no chest pain no shortness of breath no cough no nausea or vomiting no abdominal pain no diarrhea and no urinary symptoms. At this time we are still awaiting culture results and further recommendation from infectious disease. Objective - Vital Signs Vital signs: Vital Signs Temp 98.9 F 02/22/24 13:41 Pulse 56 L 02/22/24 13:41 Resp 16 02/22/24 13:41 BP 115/74 02/22/24 13:41 Pulse Ox 97 02/22/24 13:41 FiO2 21 02/19/24 08:56 Intake & Output 02/21/24 02/22/24 02/22/24 18:59 06:59 18:59 Intake Total 118 710 Output Total 750 1750 Balance -632 -1750 710 Weight 100.244 kg Intake: Oral 118 710 Output: Urine 750 1750 Other: Voiding Method External Catheter External Catheter External Catheter - Exam Head normocephalic Neck supple Lungs clear to auscultation bilaterally no wheezing or crackles Heart irregular heart rate known A-fib Abdomen is soft nontender nondistended positive bowel sounds no hepatosplenomegaly Extremities bilateral lower extremity lymphedema. Left heel ulcer Neuro alert and orientated to 3 - Labs CBC & Chem 7: 02/21/24 03:16 02/21/24 03:16 Labs: Abnormal Lab Results - Last 24 Hours (Table) 02/21/24 02/21/24 02/22/24 Range/Units 17:16 20:41 02:10 POC Glucose (mg/dL) 182 H 240 H 225 H (70-110) mg/dL 02/22/24 02/22/24 Range/Units 06:39 12:15 POC Glucose (mg/dL) 156 H 251 H (70-110) mg/dL Microbiology - Last 24 Hours (Table) 02/19/24 13:41 Anaerobic Culture - Preliminary Heel - Left Assessment and Plan Plan: 1. Hypoglycemia. Long-acting insulin held sliding scale added 2. Hypotension. Cardiology services consulted parameter set to cardiac medication 3. Left heel ulcer. Infectious disease services consulted 4. History of recent new onset atrial fibrillation status post cardioversion. Patient is back into atrial fibrillation maintained on Eliquis 5. History of COPD 6. History of chronic bilateral lower extremity lymphedema 7. History of CHF 8. History of morbid obesity 9. History of hyperlipidemia 10. History of hypothyroidism 11. History of diabetes mellitus type 2 DVT prophylaxis Eliquis. GI prophylaxis Protonix Cardiology services consulted Infectious disease services consulted Blood culture ordered
[2024-02-22 17:27] LABS: Glucose,Whole Blood 175 mg/dL (70-110)
[2024-02-22 20:03] LABS: Glucose,Whole Blood 197 mg/dL (70-110)
[2024-02-23 04:44] LABS: ALT 10 U/L (4-49); AST 21 U/L (17-59); African American GFR (CKD) >90 (>60 ml/min/1.73 sqM); Albumin 2.5 g/dL (3.5-5.0); Albumin/Globulin Ratio 0.9; Alkaline Phosphatase 153 U/L (38-126); Anion Gap 12 mmol/L; Blood Urea Nitrogen 15 mg/dL (9-20); Calcium 8.7 mg/dL (8.4-10.2); Carbon Dioxide 28 mmol/L (22-30); Chloride 93 mmol/L (98-107); Globulin 2.7 g/dL; Glucose 231 mg/dL (74-99); Non-African American GFR(CKD) >90 (>60 ml/min/1.73 sqM); Potassium 3.9 mmol/L (3.5-5.1); Sodium 133 mmol/L (137-145); Total Bilirubin 0.6 mg/dL (0.2-1.3); Total Protein 5.2 g/dL (6.3-8.2)
[2024-02-23 04:53] LABS: Anisocytosis Moderate; Basophils % (A) 0 %; Eosinophils # (A) 0.2 k/uL (0-0.7); Eosinophils % (A) 2 %; HCT 34.9 % (39.0-53.0); HGB 11.1 gm/dL (13.0-17.5); Hypochromasia Slight; Lymphocytes # (A) 1.3 k/uL (1.0-4.8); Lymphocytes % (A) 19 %; MCH 26.2 pg (25.0-35.0); MCHC 31.7 g/dL (31.0-37.0); MCV 82.7 fL (80.0-100.0); Mean Platelet Volume 8.1; Microcytosis Slight; Monocytes # (A) 0.4 k/uL (0-1.0); Monocytes % (A) 6 %; Neutrophils # (A) 4.7 k/uL (1.3-7.7); Neutrophils % (A) 71 %; Platelet Count 263 k/uL (150-450); RBC 4.22 m/uL (4.30-5.90); WBC 6.7 k/uL (3.8-10.6)
[2024-02-23 05:26] LABS: Glucose,Whole Blood 214 mg/dL (70-110)
[2024-02-23 07:53] VITALS: BP 122/80; RESP 18; TEMP 98.3
[2024-02-23 11:56] VITALS: PULSE 76
[2024-02-23 12:20] LABS: Glucose,Whole Blood 238 mg/dL (70-110)
--- NOTE | 2024-02-23 12:31 | P.DS ---
Providers Date of admission: 02/18/24 08:23 Expected date of discharge: 02/23/24 Attending physician: Aquilino Garber Consults: 02/16/24 17:47 Consult Physician Routine Consulting Provider: Jovita Mcnally Consult Reason/Comments: lower extremity cellulitis Do you want consulting provider notified?: Yes 02/18/24 12:39 Consult Physician Routine Consulting Provider: Ish Nicole Consult Reason/Comments: possible debridement Do you want consulting provider notified?: Yes Primary care physician: Aquilino Garber [place] Course: discharge diagnosis 1. Hypoglycemia. Long-acting insulin held sliding scale added 2. Hypotension. Cardiology services consulted parameter set to cardiac medication 3. Left heel ulcer. Infectious disease services consulted. Status post debridement 4. History of recent new onset atrial fibrillation status post cardioversion. Patient is back into atrial fibrillation maintained on Eliquis 5. History of COPD 6. History of chronic bilateral lower extremity lymphedema 7. History of CHF 8. History of morbid obesity 9. History of hyperlipidemia 10. History of hypothyroidism 11. History of diabetes mellitus type 2 Hospital course Francisco Cao is a a 73 year old male patient who presented to the ER from [facility] with complaints of weakness and low blood sugar. Patient also was found to have hypotension. Patient was recently admitted and treated for TIA and A- fib. Patient denies any chest pain or shortness of breath. Patient has chronic lower extremity lymphedema with open wound to left heel. Patient denies any nausea vomiting or diarrhea. During last admission Lantus was decreased but patient still having episodes of low blood sugar. Patient has past medical history of atrial fibrillation, CHF, COPD, diabetes mellitus, eye disorder, hyperlipidemia, hypertension, prostate disorder, thyroid disorder and chronic lymphedema to bilateral legs. Chest x-ray completed showing bibasilar atelectasis favored over infiltrate with small bilateral pleural effusion no overt pulmonary edema prominent right helium consider short-term follow-up CT of chest. EKG completed showing A-fib. Lab work revealing negative troponin creatinine 0.79 bun 23. White blood cell 13.3, hemoglobin 11.4. UA negative. At this time patient will be admitted long-acting insulin DC'd patient maintained on sliding scale coverage. Will consult cardiology services for A- fib and hypotension. Will also consult infectious disease for lower extremity wound. Blood culture ordered at this time patient denies chest pain or shortness of breath. Patient denies nausea vomiting or diarrhea. Patient denies any urinary burning or frequency On 02/17/2024 patient was seen and examined on the medical floor he is alert and oriented x 3 in no apparent distress he is still having episodes of hypoglycemia and episodes of hypotension medications are being adjusted otherwise patient denies any complaints there is no fever or chills no headache or dizziness no chest pain no shortness of breath no cough no nausea or vomiting no abdominal pain no diarrhea and no urinary symptoms On 02/18/2024 patient is alert and oriented x 3. Patient remains on IV Kefzol. Vascular surgery consulted for possible debridement. Sliding scale insulin d/c glipizide added. Medications adjusted per cardiology. Patient denies chest pain or shortness of breath. Patient denies nausea vomiting or diarrhea. Patient denies any urinary burning or frequency On 02/19/2024 patient was seen and examined on the medical floor he is alert and oriented x 3 in no apparent distress he is complaining of generalized weakness otherwise he denies any complaints there is no fever or chills no headache or dizziness no chest pain no shortness of breath no cough no nausea or vomiting no abdominal pain no diarrhea and no urinary symptoms. He remains on IV Kefzol for lower extremity cellulitis, he is scheduled for debridement of his heel ulcer today, will continue to follow closely. On 02/20/2024 patient is alert and oriented x 3. Status post debridement with Dr. Nicole. Dressing is clean dry and intact. Cardiology services are following medications have been adjusted. Current vital signs temp 98.1, heart rate 87, respiratory rate 16, blood pressure 124/69 with a pulse ox of 99% on room air patient remains on IV Kefzol. Blood culture is positive infectious disease services following. Patient denies chest pain or shortness of breath. Patient denies nausea vomiting or diarrhea. Patient denies any urinary burning or frequency On 02/21/2024 patient was seen and examined on the medical floor he is alert and oriented x 3 in no apparent distress, there is no fever or chills no headache or dizziness no chest pain no shortness of breath no cough no nausea or vomiting no abdominal pain no diarrhea no blood in the stools no burning with urination no frequency or urgency and no hematuria. Patient is still maintained on IV antibiotics, awaiting culture results and further recommendation from infectious disease, patient was reevaluated by vascular surgery, Dr. Nicole is recommending a boot. Possible transfer back to the halfway in the next 1 to 2 days On 02/22/2024 patient was seen and examined on the medical floor he is alert and oriented in no apparent distress there is no fever or chills no headache or dizziness no chest pain no shortness of breath no cough no nausea or vomiting no abdominal pain no diarrhea and no urinary symptoms. At this time we are still awaiting culture results and further recommendation from infectious disease. on 02/23/2024 patient is alert and oriented 3. Patient is eager to be transferred back to the [facility]. Discussed case with infectious disease patient w ill be discharged on Augmentin. insulin was DC'd. Patient maintained on Actos and glipizide. Patient denies chest pain or shortness of breath. Patient denies nausea vomiting or diarrhea. Patient denies any urinary burning or Patient Condition at Discharge: Stable Plan - Discharge Summary Discharge Rx Participant: Yes New Discharge Prescriptions: New Amoxic-Pot Clav 500-125 mg [Augmentin 500-125 mg] 1 tab PO Q12HR 7 Days #14 tab RX: Bumetanide [BUMEX] 0.5 mg PO 1400 tab RX: Amiodarone [Cordarone] 200 mg PO BID tab RX: Amiodarone [Cordarone] 200 mg PO TID tab RX: bisacodyL [Dulcolax] 5 mg PO DAILY PRN tab PRN Reason: Constipation RX: lisinopriL [Zestril] 5 mg PO DAILY tab RX: HYDROcodone/APAP 5-325MG [[place] 5-325] 1 each PO Q4HR PRN 3 Days #12 tab PRN Reason: Moderate Pain (Scale 4 To 6) RX: Pioglitazone [Actos] 30 mg PO DAILY tab RX: Bumetanide [BUMEX] 1 mg PO DAILY tab RX: glipiZIDE [Glucotrol] 2.5 mg PO AC-TID tab Continue RX: Tamsulosin [Flomax] 0.4 mg PO BID@0900,2100 RX: Loperamide HCl [Imodium A-D] 2 - 4 mg PO QID PRN MDD 8mg PRN Reason: Diarrhea RX: guaiFENesin [guaiFENesin Oral Solution] 200 mg PO Q4H PRN PRN Reason: Cough RX: Na Phos,M-B/Na Phos,Di-Ba [Fleet Adult] 133 ml RECTAL DAILY PRN PRN Reason: Constipation RX: bisacodyL [Dulcolax] 10 mg RECTAL DAILY PRN PRN Reason: Constipation RX: Magnesium Oxide [Mag-Ox] 400 mg PO BID@0800,1700 RX: Atorvastatin [Lipitor] 40 mg PO HS@2100 RX: Spironolactone [Aldactone] 25 mg PO DAILY@0800 RX: Aspirin 81 mg PO DAILY@0800 RX: Metoprolol Tartrate [Lopressor] 50 mg PO BID@0800,1700 RX: Magnesium Hydroxide [Milk of Magnesia Concentrate] 7,200 mg PO DAILY PRN PRN Reason: Constipation RX: Hydrocortisone [Cortizone-10] 1 applic TOPICAL Q24H PRN PRN Reason: right thigh RX: Albuterol Nebulized [Ventolin Nebulized] 2.5 mg INHALATION RT-Q6H Liquacel 30 ml PO BID@0800,1700 RX: Apixaban [Eliquis] 5 mg PO BID@0800,1700 RX: Collagenase [Santyl Ointment] 1 applic TOPICAL DAILY RX: methIMAzole [Tapazole] 5 mg PO DAILY@0800 RX: Pantoprazole [Protonix] 40 mg PO DAILY@0600 RX: Melatonin 5 mg PO HS@2100 RX: Dapagliflozin Propanediol [Farxiga] 10 mg PO DAILY@0800 Tums 750mg Chewable 750 mg PO Q8H PRN PRN Reason: acid reflux Discontinued RX: INSULIN ASPART (NovoLOG) [NovoLOG (formulary)] See Protocol SQ AC-TID RX: Bumetanide [BUMEX] 1 mg PO BID@0600,1400 RX: Insulin Detemir (Levemir) [Levemir] 35 unit SQ HS each RX: HYDROcodone/APAP 10-325MG [[place]vue 10-325] 1 tab PO Q6HR PRN PRN Reason: Pain Discharge Medication List RX: Tamsulosin [Flomax] 0.4 mg PO BID@0900,2100 11/17/17 [History] Liquacel 30 ml PO BID@0800,1700 02/07/24 [History] RX: Albuterol Nebulized [Ventolin Nebulized] 2.5 mg INHALATION RT-Q6H 02/07/24 [History] RX: Apixaban [Eliquis] 5 mg PO BID@0800,1700 02/07/24 [History] RX: Atorvastatin [Lipitor] 40 mg PO HS@209902/07/24 [History] RX: Collagenase [Santyl Ointment] 1 applic TOPICAL DAILY 02/07/24 [History] RX: Dapagliflozin Propanediol [Farxiga] 10 mg PO DAILY@79902/07/24 [History] RX: Hydrocortisone [Cortizone-10] 1 applic TOPICAL Q24H PRN 02/07/24 [History] RX: Loperamide HCl [Imodium A-D] 2 - 4 mg PO QID PRN MDD 8mg 02/07/24 [History] RX: Magnesium Hydroxide [Milk of Magnesia Concentrate] 7,200 mg PO DAILY PRN 02/07/24 [History] RX: Magnesium Oxide [Mag-Ox] 400 mg PO BID@0800,1700 02/07/24 [History] RX: Melatonin 5 mg PO HS@209902/07/24 [History] RX: Na Phos,M-B/Na Phos,Di-Ba [Fleet Adult] 133 ml RECTAL DAILY PRN 02/07/24 [History] RX: Pantoprazole [Protonix] 40 mg PO DAILY@0602/07/24 [History] RX: Spironolactone [Aldactone] 25 mg PO DAILY@79902/07/24 [History] RX: bisacodyL [Dulcolax] 10 mg RECTAL DAILY PRN 02/07/24 [History] RX: guaiFENesin [guaiFENesin Oral Solution] 200 mg PO Q4H PRN 02/07/24 [History] RX: methIMAzole [Tapazole] 5 mg PO DAILY@0802/07/24 [History] Tums 750mg Chewable 750 mg PO Q8H PRN 02/07/24 [History] RX: Aspirin 81 mg PO DAILY@79902/16/24 [History] RX: Metoprolol Tartrate [Lopressor] 50 mg PO BID@0800,1700 02/16/24 [History] Amoxic-Pot Clav 500-125 mg [Augmentin 500-125 mg] 1 tab PO Q12HR 7 Days #14 tab 02/23/24 [Rx] RX: Amiodarone [Cordarone] 200 mg PO BID tab 02/23/24 [Rx] RX: Amiodarone [Cordarone] 200 mg PO TID tab 02/23/24 [Rx] RX: Bumetanide [BUMEX] 0.5 mg PO 1400 tab 02/23/24 [Rx] RX: Bumetanide [BUMEX] 1 mg PO DAILY tab 02/23/24 [Rx] RX: HYDROcodone/APAP 5-325MG [[place]vue 5-325] 1 each PO Q4HR PRN 3 Days #12 tab 02/23/24 [Rx] RX: Pioglitazone [Actos] 30 mg PO DAILY tab 02/23/24 [Rx] RX: bisacodyL [Dulcolax] 5 mg PO DAILY PRN tab 02/23/24 [Rx] RX: glipiZIDE [Glucotrol] 2.5 mg PO AC-TID tab 02/23/24 [Rx] RX: lisinopriL [Zestril] 5 mg PO DAILY tab 02/23/24 [Rx] Follow up Appointment(s)/Referral(s): Aquilino Garber MD [Primary Care Provider] - 1-2 days Ish Nicole MD [STAFF PHYSICIAN] - 02/28/24 12:45 pm (Appointment made for the [facility]) Discharge Disposition: TRANSFER TO SNF/ECF
--- NOTE | 2024-02-23 12:40 | P.PN ---
Subjective Progress Note Date: 02/23/24 Principal diagnosis: Reason for follow-up is left heel wound left leg cellulitis and leukocytosis Patient is a 73-year-old male with a past medical history significant for hypertension hyperlipidemia diabetes mellitus COPD heart failure atrial fibrillation and [facility] resident patient has been sent to the ER for evaluation of hypotension and hypoglycemia noticed at the [facility], patient did have a necrotic wound to the left heel and concern for secondary cellulitis. On today's evaluation that is Patient is status post surgical debridement of his left heel wound by vascular surgery on 02/19/2024. On today's evaluation that is 02/23/2024, Patient is afebrile this morning patient denies having any chest pain shortness of breath or cough, the patient is breathing comfortably and currently on room air, patient denies any abdominal pain no diarrhea no nausea no vomiting, denies pain to the left heel wound. Patient white count 6.7, creatinine 0.66 local culture still pending Objective - Vital Signs Vital signs: Vital Signs Temp 98.3 F 02/23/24 07:52 Pulse 64 02/23/24 08:04 Resp 18 02/23/24 07:52 BP 122/80 02/23/24 07:52 Pulse Ox 97 02/23/24 07:52 FiO2 21 02/19/24 08:56 Intake & Output 02/22/24 02/23/24 02/23/24 18:59 06:59 18:59 Intake Total 946 480 Output Total 900 1650 Balance 46 -1650 480 Intake: Oral 946 480 Output: Urine 900 1650 Other: Voiding Method External Catheter External Catheter External Catheter - Exam GENERAL DESCRIPTION: An elderly male lying in bed in no distress RESPIRATORY SYSTEM: Unlabored breathing , decreased breath sounds at bases HEART: S1 S2 regular rate and rhythm , ABDOMEN: Soft , no tenderness EXTREMITIES: Left heel wound currently dressed no drainage - Labs CBC & Chem 7: 02/23/24 03:47 02/23/24 03:47 Labs: Abnormal Lab Results - Last 24 Hours (Table) 02/22/24 02/22/24 02/22/24 Range/Units 12:15 17:25 19:59 RBC (4.30-5.90) m/uL Hgb (13.0-17.5) gm/dL Hct (39.0-53.0) % RDW (11.5-15.5) % Sodium (137-145) mmol/L Chloride (98-107) mmol/L Glucose (74-99) mg/dL POC Glucose (mg/dL) 251 H 175 H 197 H (70-110) mg/dL Alkaline Phosphatase (38-126) U/L Total Protein (6.3-8.2) g/dL Albumin (3.5-5.0) g/dL 02/23/24 02/23/24 02/23/24 Range/Units 03:47 03:47 05:25 RBC 4.22 L (4.30-5.90) m/uL Hgb 11.1 L (13.0-17.5) gm/dL Hct 34.9 L (39.0-53.0) % RDW 23.0 H (11.5-15.5) % Sodium 133 L (137-145) mmol/L Chloride 93 L (98-107) mmol/L Glucose 231 H (74-99) mg/dL POC Glucose (mg/dL) 214 H (70-110) mg/dL Alkaline Phosphatase 153 H (38-126) U/L Total Protein 5.2 L (6.3-8.2) g/dL Albumin 2.5 L (3.5-5.0) g/dL Assessment and Plan (1) Bilateral lower leg cellulitis Current Visit: No Status: Acute Code(s): L03.116 - CELLULITIS OF LEFT LOWER LIMB; L03.115 - CELLULITIS OF RIGHT LOWER LIMB SNOMED Code(s): 416627778 (2) Penicillin allergy Current Visit: No Status: Acute Code(s): Z88.0 - ALLERGY STATUS TO PENICILLIN SNOMED Code(s): 44922780 Plan: 1patient presented to the hospital with hyperglycemia and apparently was noticed to be mildly hypertensive patient did have a necrotic wound to the left heel and a component cellulitis of bilateral lower extremity likely from gram- positive skin karan 2-vascular surgery has been consulted and the patient is status post debridement of the wound cultures are currently pending 3-positive blood culture with staph epi possible contamination less likely related to his left heel wound 4-patient is afebrile white count is normal, still waiting on the OR cultures to be finalized, however the patient has been insisting on going home, keeping in mind patient have improvement on cefazolin will consider short course of Keflex on discharge Dictation was produced using [employer] dictation software. please excuse any grammatical, word or spelling errors. Time with Patient: Less than 30
[2024-02-27] MEDS ORDERED: AMIODARONE 200 MG TAB PO SCH (09:00)
--- NOTE | 2024-03-12 20:52 | CDI ---
Documentation Clarification Form Date: 03/12/2024 08:30:48 PM From: Tami Carter Phone: Admit Date: 02/18/2024 08:23:00 AM Patient Name: Francisco Cao Visit Number: [id number] Discharge Date: 02/23/2024 02:58:00 PM ATTENTION: The Clinical Documentation Specialists (CDI) and [facility] Coding Staff appreciate your assistance in clarifying documentation. Please respond to the clarification below the line at the bottom and electronically sign. The CDI & [facility] Coding staff will review the response and follow-up if needed. Please note: Queries are made part of the Legal Health Record. If you have any questions, please contact the author of this message via ITS. Doctor/Provider: Aquilino Garber Conflicting documentation has been found in the medical record. As attending physician, please provide clarification. Hypoglycemia per ED, H&P and Progress Notes Elevated glucose readings per Comprehensive Metabolic Panel/Lab Results History/Risk Factors: 73yo M, permanent A Fib, CSHF, COPD, HLD, CM, HTN, HLD, IDDMII w cellulitis, necroticwound to the L heel, Hx TIA w aphasia, chronic lymphedema, LICA stenosis, post procedural hypothyroidism, PHTN, BPH Clinical Indicators: A1C: 9.0 Glucose: 02/15 102-138 02/16 146-279 02/17 163-263 02/18 177-242 02/19 128- 205 02/20 135-206 02/21 156-251 02/22 175-251 Treatment: Long-acting insulin held sliding scale added Please clarify which diagnosis is most appropriate: [ xxxx] Hypoglycemia as evidenced by (please specify) low glucose at home [ ] Hyperglycemia [ xxxx ] Present on Admission [ ] Not Present on Admission [ ] Other (please specify) [ ] Unable to determine (Template Last Revised: August 2020) MTDD
== END 2024-02-23 14:58 | DRG 622 ==
LOC: EC 08:22 → 6NMEDSUR 11:24 → OBSVTOIN 02-18 08:23
PROVIDERS: ADMIT Internal Medicine; ATTEND Internal Medicine
PROC: 0JBR0ZZ Excision of Left Foot Subcutaneous Tissue and Fascia, Open Approach (ICD-10-PCS; principal; 2024-02-19 10:36)
DX: E11.628 Type 2 diabetes mellitus with other skin complications (principal); L89.623 Pressure ulcer of left heel, stage 3; E11.52 Type 2 diabetes mellitus with diabetic peripheral angiopathy with gangrene; I42.9 Cardiomyopathy, unspecified; I96 Gangrene, not elsewhere classified; I48.21 Permanent atrial fibrillation; I50.22 Chronic systolic (congestive) heart failure; L03.115 Cellulitis of right lower limb; L03.116 Cellulitis of left lower limb; I27.20 Pulmonary hypertension, unspecified; D63.8 Anemia in other chronic diseases classified elsewhere; E11.649 Type 2 diabetes mellitus with hypoglycemia without coma; I11.0 Hypertensive heart disease with heart failure; I95.9 Hypotension, unspecified; E11.65 Type 2 diabetes mellitus with hyperglycemia; J44.9 Chronic obstructive pulmonary disease, unspecified; E66.01 Morbid (severe) obesity due to excess calories; Z79.4 Long term (current) use of insulin; E89.0 Postprocedural hypothyroidism; I65.22 Occlusion and stenosis of left carotid artery; D50.9 Iron deficiency anemia, unspecified; Z68.32 Body mass index [BMI] 32.0-32.9, adult; Z79.01 Long term (current) use of anticoagulants; I07.1 Rheumatic tricuspid insufficiency; E83.42 Hypomagnesemia; I25.10 Atherosclerotic heart disease of native coronary artery without angina pectoris; N40.0 Benign prostatic hyperplasia without lower urinary tract symptoms; I89.0 Lymphedema, not elsewhere classified; E78.5 Hyperlipidemia, unspecified; Z79.82 Long term (current) use of aspirin; Z87.891 Personal history of nicotine dependence; Z79.84 Long term (current) use of oral hypoglycemic drugs; Z79.899 Other long term (current) drug therapy; Z74.01 Bed confinement status; I69.320 Aphasia following cerebral infarction; Z88.0 Allergy status to penicillin
CPT/HCPCS: 36415; 71046; 74018; 80053; 81003; 82607; 82746; 83036; 83540; 83550; 83605; 83735; 83880; 84443; 84484; 85025; 85610; 85730; 87040; 87070; 87075; 87077; 87186; 87205; 93005; 94640; 94760; 96361; 96365; 96367; 99285

== ENCOUNTER 2024-07-07 10:12 | Inpatient (IN) | payer MEDICARE ==
[2024-07-07 11:16] LABS: Basophils % (A) 0 %; Eosinophils # (A) 0.2 k/uL (0-0.7); Eosinophils % (A) 1 %; HCT 33.1 % (39.0-53.0); HGB 10.8 gm/dL (13.0-17.5); Lymphocytes # (A) 0.7 k/uL (1.0-4.8); Lymphocytes % (A) 4 %; MCHC 32.6 g/dL (31.0-37.0); MCV 92.2 fL (80.0-100.0); Mean Platelet Volume 6.9; Monocytes # (A) 0.6 k/uL (0-1.0); Monocytes % (A) 3 %; Neutrophils # (A) 17.3 k/uL (1.3-7.7); Neutrophils % (A) 92 %; Platelet Count 352 k/uL (150-450); RBC 3.59 m/uL (4.30-5.90); WBC 18.9 k/uL (3.8-10.6)
[2024-07-07 11:30] LABS: ALT 90 U/L (4-49); African American GFR (CKD) >90 (>60 ml/min/1.73 sqM); Albumin 2.7 g/dL (3.5-5.0); Anion Gap 9 mmol/L; Blood Urea Nitrogen 23 mg/dL (9-20); Calcium 8.8 mg/dL (8.4-10.2); Carbon Dioxide 26 mmol/L (22-30); Chloride 99 mmol/L (98-107); Glucose 245 mg/dL (74-99); Non-African American GFR(CKD) 89 (>60 ml/min/1.73 sqM); Sodium 134 mmol/L (137-145); Total Protein 5.8 g/dL (6.3-8.2)
[2024-07-07] MEDS ORDERED: VANCOMYCIN IV PER PHARMACY 1 EACH MISC MISCELLANE PRN (11:41)
--- NOTE | 2024-07-07 11:43 | ED ---
Male Urogenital HPI - General Chief complaint: Urogenital Stated complaint: Urogenital Time Seen by Provider: 07/07/24 10:16 Source: patient, EMS, RN notes reviewed Mode of arrival: EMS Limitations: no limitations - History of Present Illness Initial comments: Patient is a 73 year old male with a past medical history of afib presenting for a UTI with left testicular pain and swelling from [facility] x 6 days. 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 He states that the pain and swelling have gradually gotten worse. He notes the pain when laying is a 2/10, but is a 8/10 when palpated. He states that he has "tried using the urinal, but it's hard because of the pain and swelling in the testicle". He states that he is having some dysuria still, but denies any blood in the urine. He notes having more frequent loose stools recently. He denies any chest pain, abdominal pain, or shortness of breath. - Related Data Home Medications Medication Instructions Recorded Confirmed Tamsulosin [Flomax] 0.4 mg PO BID 11/17/17 07/07/24 Albuterol Nebulized [Ventolin 2.5 mg INHALATION RT-Q6H 02/07/24 07/07/24 Nebulized] Apixaban [Eliquis] 5 mg PO BID 02/07/24 07/07/24 Hydrocortisone [Cortizone-10] 1 applic TOPICAL Q24H PRN 02/07/24 07/07/24 Loperamide HCl [Imodium A-D] 2 - 4 mg PO QID PRN MDD 8mg 02/07/24 07/07/24 Magnesium Hydroxide [Milk of 30 ml PO Q48H PRN 02/07/24 07/07/24 Magnesia Concentrate] Magnesium Oxide [Mag-Ox] 400 mg PO BID 02/07/24 07/07/24 Melatonin 5 mg PO HS 02/07/24 07/07/24 Na Phos,M-B/Na Phos,Di-Ba [Fleet 133 ml RECTAL DAILY PRN 02/07/24 07/07/24 Adult] Pantoprazole [Protonix] 40 mg PO DAILY@0600 02/07/24 07/07/24 Spironolactone [Aldactone] 25 mg PO HS 02/07/24 07/07/24 Tums 750mg Chewable 750 mg PO Q8H PRN 02/07/24 07/07/24 guaiFENesin [guaiFENesin Oral 10 ml PO Q4H PRN 02/07/24 07/07/24 Solution] methIMAzole [Tapazole] 5 mg PO DAILY 02/07/24 03/15/24 Aspirin 81 mg PO DAILY 02/16/24 03/15/24 Metoprolol Tartrate [Lopressor] 50 mg PO BID 02/16/24 07/07/24 Atorvastatin Calcium 40 mg PO HS 03/15/24 07/07/24 Cerave Pm 1 applic TOPICAL DAILY 03/15/24 07/07/24 HYDROcodone/APAP 5-325MG [[place] 1 tab PO Q4HR PRN 03/15/24 07/07/24 5-325] Sennosides/Docusate Sodium [Senna 1 tab PO BID@0800,1700 03/15/24 07/07/24 Plus 8.6-50 mg Tablet] lisinopriL [Zestril] 5 mg PO HS 03/15/24 07/07/24 Acetaminophen [Tylenol 8 Hour] 650 mg PO Q4H PRN 07/07/24 07/07/24 Empagliflozin [Jardiance] 10 mg PO DAILY 07/07/24 07/07/24 INSULIN LISPRO (HumaLOG) [HumaLOG] See Protocol SQ AC-TID 07/07/24 07/07/24 Lactose-Reduced Food [Ensure 1 can PO HS 07/07/24 07/07/24 Original] Nystatin 100,000Unit/gm Cream 1 applic TOPICAL BID@0800,1700 07/07/24 07/07/24 [Mycostatin Cream] Sodium Chloride [Saline Mist] 1 spray EA NOSTRIL BID PRN 07/07/24 07/07/24 Triamcinolone 0.1% Cream [Kenalog 1 applic TOPICAL BID 07/07/24 07/07/24 0.1% Cream] Tums Ex 750mg 750 mg PO Q8H PRN 07/07/24 07/07/24 Vashe Wound Therapy 1 applic TOPICAL MOWEFR 07/07/24 07/07/24 bisacodyL [Dulcolax] 10 mg RECTAL DAILY PRN 07/07/24 07/07/24 glipiZIDE [Glucotrol] 5 mg PO AC-TID 07/07/24 07/07/24 polyethylene glycoL 3350 [Miralax] 17 gm PO DAILY 07/07/24 07/07/24 Previous Rx's Medication Instructions Recorded Amiodarone [Cordarone] 200 mg PO BID tab 02/23/24 Bumetanide [BUMEX] 1 mg PO DAILY tab 02/23/24 Pioglitazone [Actos] 30 mg PO DAILY tab 02/23/24 Allergies Allergy/AdvReac Type Severity Reaction Status Date / Time adhesive Allergy BLISTERING Verified 07/07/24 11:34 RASH amoxicillin Allergy Rash/Hives Verified 07/07/24 11:34 Penicillins Allergy Rash/Hives Verified 07/07/24 11:34 pollen extracts Allergy RHINITIS, Verified 07/07/24 11:34 SORE THROAT Review of Systems ROS Statement: Those systems with pertinent positive or pertinent negative responses have been documented in the HPI. ROS Other: All systems not noted in ROS Statement are negative. Past Medical History Past Medical History: Atrial Fibrillation, Heart Failure, COPD, Diabetes Mellitus, Eye Disorder, Hyperlipidemia, Hypertension, Prostate Disorder, Sleep Apnea/CPAP/BIPAP, Thyroid Disorder Additional Past Medical History / Comment(s): HX PVC'S. MILD COPD. ANEMIA. HX KIDNEY STONES. BPH. HAD DIABETIC RETINOPATHY TX ON EYES. HAS HAD PICC LINE IN PAST, NOW OUT. CHRONIC BACK AND KNEE PAIN, lymphedema bilateral legs History of Any Multi-Drug Resistant Organisms: None Reported Date of last positivie culture/infection: 02/19/24 MDRO Source:: left foot Past Surgical History: Orthopedic Surgery Additional Past Surgical History / Comment(s): RT THYROIDECTOMY. MASS FROM BACK, FATTY TUMOR. NASAL MASS REMOVED. LASER EYES, INTRAOCULAR LENS. WOUND ON RT FOOT I&D. LEFT KNEE ARTHROSCOPY, multiple CYST REMOVED FROM TAILBONE Past Anesthesia/Blood Transfusion Reactions: Previous Problems w/ Anesthesia Additional Past Anesthesia/Blood Transfusion Reaction / Comment(s): OCC TAKES LONG TIME TO AWAKEN. Past Psychological History: No Psychological Hx Reported Smoking Status: Former smoker - Past Family History Mother Family Medical History: COPD Father Family Medical History: Diabetes Mellitus Additional Family Medical History / Comment(s): Heart failure. General Exam Limitations: no limitations General appearance: alert, in no apparent distress Respiratory exam: Present: normal lung sounds bilaterally. Absent: respiratory distress, wheezes, rales, rhonchi, stridor Cardiovascular Exam: Present: regular rate, irregular rhythm GI/Abdominal exam: Present: soft, normal bowel sounds. Absent: distended, tenderness, guarding, rebound, rigid Back exam: Absent: CVA tenderness (R), CVA tenderness (L) Neurological exam: Present: alert, oriented X3, CN II-XII intact Skin exam: Present: warm, dry, intact, normal color. Absent: rash Course Vital Signs 07/07/24 07/07/24 07/07/24 10:13 14:06 14:19 Temperature 97.5 F L 98.7 F Pulse Rate 87 58 L 60 Respiratory 17 18 Rate Blood Pressure 137/71 135/54 O2 Sat by Pulse 99 97 Oximetry 07/07/24 14:32 Temperature Pulse Rate 58 L Respiratory Rate Blood Pressure O2 Sat by Pulse Oximetry Medical Decision Making - Medical Decision Making Was pt. sent in by a medical professional or institution (, PA, ADULT FAMILY HOME PROGRAM MANAGER, urgent care, hospital, or jail...) When possible be specific @ -[PCP, jail Did you speak to anyone other than the patient for history (EMS, parent, family, police, friend...)? What history was obtained from this source @ -No Did you review nursing and triage notes (agree or disagree)? Why? @ -I reviewed and agree with nursing and triage notes Were old charts reviewed (outside hosp., previous admission, EMS record, old EKG, old radiological studies, urgent care reports/EKG's, jail records)? Report findings @ -No old charts were reviewed Differential Diagnosis (chest pain, altered mental status, abdominal pain women, abdominal pain men, vaginal bleeding, weakness, fever, dyspnea, syncope, headache, dizziness, GI bleed, back pain, seizure, CVA, palpatations, mental health, musculoskeletal)? @ -Differential Abdominal Pain Men: Appendicitis, cholecystitis, diverticulosis, ischemic bowel, pancreatitis, hepatitis, UTI, gastroenteritis, AAA, incarcerated hernia, bowel obstruction, constipation, inflammatory bowel, hepatitis, peptic ulcer disease, splenic infarction, perforated viscus, testicular torsion, this is not meant to be an all-inclusive list EKG interpreted by me (3pts min.). @ -As above X-rays interpreted by me (1pt min.). @ -None done CT interpreted by me (1pt min.). @ -None done U/S interpreted by me (1pt. min.). @ -Ultrasound showing increasing vascularity, abnormal tissue What testing was considered but not performed or refused? (CT, X-rays, U/S, labs)? Why? @ -None What meds were considered but not given or refused? Why? @ -None Did you discuss the management of the patient with other professionals (professionals i.e. , PA, ADULT FAMILY HOME PROGRAM MANAGER, lab, RT, psych nurse, social services designee, lasting room supervisor, teacher, strategic intelligence officer, director case)? Give summary @ -Dr. Garber for admission Was smoking cessation discussed for >3mins.? @ -No Was critical care preformed (if so, how long)? @ -No Were there social determinants of health that impacted care today? How? (Homelessness, low income, unemployed, alcoholism, drug addiction, transportation, low edu. Level, literacy, decrease access to med. care, mcc, rehab)? @ -No Was there de-escalation of care discussed even if they declined (Discuss DNR or withdrawal of care, Hospice)? DNR status @ -No What co-morbidities impacted this encounter? (DM, HTN, Smoking, COPD, CAD, Cancer, CVA, ARF, Chemo, Hep., AIDS, mental health diagnosis, sleep apnea, morbid obesity)? @ -None Was patient admitted / discharged? Hospital course, mention meds given and route, prescriptions, significant lab abnormalities, going to OR and other pertinent info. @ -Admitted patient's found to have resistant UTI, multi organism UTI started on meropenem, vancomycin. Case discussed with Dr. Garber patient have consult to urology and infectious disease. Undiagnosed new problem with uncertain prognosis? @ -No Drug Therapy requiring intensive monitoring for toxicity (Heparin, Nitro, Insulin, Cardizem)? @ -No Were any procedures done? @ -No Diagnosis/symptom? @ -Multi organism UTI resistant Acute, or Chronic, or Acute on Chronic? @ -Acute Uncomplicated (without systemic symptoms) or Complicated (systemic symptoms)? @ -Complicated Side effects of treatment? @ -No Exacerbation, Progression, or Severe Exacerbation? @ -No Poses a threat to life or bodily function? How? (Chest pain, [place], SD, pneumonia, PE, COPD, DKA, ARF, appy, cholecystitis, CVA, Diverticulitis, Homicidal, Suicidal, threat to staff... and all critical care pts) @ -Yes UTI may lead to sepsis causing endorgan failure - Lab Data Result diagrams: 07/07/24 10:43 07/07/24 10:43 Lab Results 07/07/24 07/07/24 07/07/24 Range/Units 10:43 10:43 10:43 WBC 18.9 H (3.8-10.6) k/uL RBC 3.59 L (4.30-5.90) m/uL Hgb 10.8 L (13.0-17.5) gm/dL Hct 33.1 L (39.0-53.0) % MCV 92.2 (80.0-100.0) fL MCH 30.0 (25.0-35.0) pg MCHC 32.6 (31.0-37.0) g/dL RDW 14.0 (11.5-15.5) % Plt Count 352 (150-450) k/uL MPV 6.9 Neutrophils % 92 % Lymphocytes % 4 % Monocytes % 3 % Eosinophils % 1 % Basophils % 0 % Neutrophils # 17.3 H (1.3-7.7) k/uL Lymphocytes # 0.7 L (1.0-4.8) k/uL Monocytes # 0.6 (0-1.0) k/uL Eosinophils # 0.2 (0-0.7) k/uL Basophils # 0.0 (0-0.2) k/uL Sodium 134 L (137-145) mmol/L Potassium 4.4 (3.5-5.1) mmol/L Chloride 99 (98-107) mmol/L Carbon Dioxide 26 (22-30) mmol/L Anion Gap 9 mmol/L BUN 23 H (9-20) mg/dL Creatinine 0.76 (0.66-1.25) mg/dL Est GFR (CKD-EPI)AfAm >90 (>60 ml/min/1.73 sqM) Est GFR (CKD-EPI)NonAf 89 (>60 ml/min/1.73 sqM) Glucose 245 H (74-99) mg/dL Plasma Lactic Acid Juan [place] 1.7 (0.7-2.0) mmol/L Calcium 8.8 (8.4-10.2) mg/dL Total Bilirubin 1.0 (0.2-1.3) mg/dL AST 51 (17-59) U/L ALT 90 H (4-49) U/L Alkaline Phosphatase 167 H (38-126) U/L Total Protein 5.8 L (6.3-8.2) g/dL Albumin 2.7 L (3.5-5.0) g/dL TSH (0.465-4.680) mIU/L 07/07/24 Range/Units 10:43 WBC (3.8-10.6) k/uL RBC (4.30-5.90) m/uL Hgb (13.0-17.5) gm/dL Hct (39.0-53.0) % MCV (80.0-100.0) fL MCH (25.0-35.0) pg MCHC (31.0-37.0) g/dL RDW (11.5-15.5) % Plt Count (150-450) k/uL MPV Neutrophils % % Lymphocytes % % Monocytes % % Eosinophils % % Basophils % % Neutrophils # (1.3-7.7) k/uL Lymphocytes # (1.0-4.8) k/uL Monocytes # (0-1.0) k/uL Eosinophils # (0-0.7) k/uL Basophils # (0-0.2) k/uL Sodium (137-145) mmol/L Potassium (3.5-5.1) mmol/L Chloride (98-107) mmol/L Carbon Dioxide (22-30) mmol/L Anion Gap mmol/L BUN (9-20) mg/dL Creatinine (0.66-1.25) mg/dL Est GFR (CKD-EPI)AfAm (>60 ml/min/1.73 sqM) Est GFR (CKD-EPI)NonAf (>60 ml/min/1.73 sqM) Glucose (74-99) mg/dL Plasma Lactic Acid [place] (0.7-2.0) mmol/L Calcium (8.4-10.2) mg/dL Total Bilirubin (0.2-1.3) mg/dL AST (17-59) U/L ALT (4-49) U/L Alkaline Phosphatase (38-126) U/L Total Protein (6.3-8.2) g/dL Albumin (3.5-5.0) g/dL TSH 2.030 (0.465-4.680) mIU/L Disposition Clinical Impression: UTI (urinary tract infection) Disposition: ADMITTED IP TO THIS HOSP Condition: Fair Time of Disposition: 13:52
[2024-07-07] MEDS: ACETAMINOPHEN TAB 500 MG TAB PO STA (11:49)
[2024-07-07 11:51] LABS: AST 51 U/L (17-59); Alkaline Phosphatase 167 U/L (38-126); Potassium 4.4 mmol/L (3.5-5.1)
--- NOTE | 2024-07-07 12:07 | US ---
EXAMINATION TYPE: US scrotum with doppler. DATE OF EXAM: 07/07/2024 COMPARISON: NONE CLINICAL INDICATION: Male, 73 years old with history of testicular swelling; Left testicle swelling x 1 week. Painful to touch. TECHNIQUE: Grayscale, color Doppler and spectral Doppler imaging of the scrotum. FINDINGS: EXAM MEASUREMENTS: TESTICLES: Right Testicle: 4.2 x 2.2 x 2.2 cm Left Testicle: 3.3 x 2.0 x 2.4 cm EPIDIDYMIS HEAD: Right Epididymis: Unable to visualize Left Epididymis: 1.3 x 1.5 x 0.6 cm. *Anechoic area seen within left epididymal head: 0.6 x 0.5 x 0. 4 cm. Doppler performed to assess for testicular vascularity; good bilateral color flow and spectral wavefo marco are seen. Presence of hydroceles: Yes, right: 1.3 x 1.4 x 0.3 cm. Left: 2.0 x 2.0 x 1.6 cm. Presence of varicoceles: No Skin appears thickened Testicles were positioned very far apart. *Midline scrotum- irregular appearance of hyperechoic tiss ue of uncertain etiology. This is shown in images toward the end of the exam with the left testicle i n view. Appears irregular. Finding does have some vascularity. IMPRESSION: 1. Some soft tissue type density with vascularity appears to be between the testicles. Additional wor kup is recommended. 2. No suspicious changes for torsion. [facility], , 07/07/2024 12:04 PM
[2024-07-07] MEDS ORDERED: HYDROcodone/APAP 5-325MG 1 EACH TAB PO PRN (12:54)
[2024-07-07] MEDS ORDERED: bisacodyL 10 MG SUPP RECTAL PRN (12:54)
[2024-07-07] MEDS ORDERED: guaiFENesin SYRUP 100MG/5ML 200 MG/10 ML CUP PO PRN (12:54)
[2024-07-07] MEDS ORDERED: LOPERAMIDE 2 MG CAP PO PRN (12:54)
[2024-07-07] MEDS ORDERED: MAGNESIUM HYDROXIDE 2,400 MG/30 ML CUP PO PRN (12:54)
[2024-07-07] MEDS ORDERED: NA PHOS,M-B/NA PHOS,DI-BA 133 ML ENEMA RECTAL PRN (12:54)
[2024-07-07] MEDS ORDERED: CALCIUM CARBONATE 500 MG CHEWABLE PO PRN (12:54)
[2024-07-07] MEDS: MEROPENEM 2 GM in SODIUM CHLORIDE 0.9% 100 ML IVPB STA (13:18)
[2024-07-07 13:58] LABS: Appearance,Urine Cloudy (Clear); Bilirubin,Urine Negative (Negative); Blood,Urine Small (Negative); Color,Urine Colorless; Glucose,Urine (UA) 4+ (Negative); Ketones,Urine Negative (Negative); Leukocyte Esterase,Urine Large (Negative); Nitrite,Urine Negative (Negative); PH, Urine 6.5 (5.0-8.0); Protein,Urine Trace (Negative); RBC,Urine 16 /hpf (0-5); Urobilinogen,Urine <2.0 mg/dL (<2.0); WBC,Urine >182 /hpf (0-5)
[2024-07-07] MEDS: VANCOMYCIN 1,500 MG in SODIUM CHLORIDE 0.9% 500 ML 500 ML IVPB STA (14:01)
[2024-07-07] MEDS: ALBUTEROL NEBULIZED 2.5 MG/3 ML INHALATION SCH (14:19)
[2024-07-07] MEDS: MEROPENEM 1 GM in SODIUM CHLORIDE 0.9% 100 ML IVPB SCH (17:37)
[2024-07-07] MEDS: SENNOSIDES-DOCUSATE SODIUM 1 EACH TAB PO SCH (20:01)
[2024-07-07] MEDS: glipiZIDE 5 MG TAB PO SCH (20:04)
[2024-07-07] MEDS ORDERED: LACTOSE REDUCED FOOD 400 GM PO SCH (21:00)
[2024-07-07] MEDS: TAMSULOSIN 0.4 MG CAP.ER.24H PO SCH (21:23)
[2024-07-07] MEDS: AMIODARONE 200 MG TAB PO SCH (21:23)
[2024-07-07] MEDS: APIXABAN 5 MG TAB PO SCH (21:23)
[2024-07-07] MEDS: MAGNESIUM OXIDE 400 MG TAB PO SCH (21:23)
[2024-07-07] MEDS: MELATONIN 5 MG TABLET PO SCH (21:23)
[2024-07-07] MEDS: METOPROLOL TARTRATE 50 MG TAB PO SCH (21:23)
[2024-07-07] MEDS: ATORVASTATIN 40 MG TAB PO SCH (21:23)
[2024-07-07] MEDS: lisinopriL 5 MG TAB PO SCH (21:23)
[2024-07-07] MEDS: SPIRONOLACTONE 25 MG TAB PO SCH (21:23)
[2024-07-07 21:50] LABS: Glucose,Whole Blood 191 mg/dL (70-110)
[2024-07-07] MEDS: VANCOMYCIN 1,500 MG in SODIUM CHLORIDE 0.9% 500 ML 500 ML IVPB SCH (23:47)
[2024-07-08] MEDS: PANTOPRAZOLE 40 MG TABLET PO SCH (06:30)
[2024-07-08 06:38] LABS: Glucose,Whole Blood 69 mg/dL (70-110)
[2024-07-08 06:58] LABS: Glucose,Whole Blood 84 mg/dL (70-110)
--- NOTE | 2024-07-08 07:02 | P.CONS ---
History of Present Illness - Reason for Consult Consult date: 07/07/24 UTI Requesting physician: Aquilino Garber - Chief Complaint Burning urine and testicular pain x few days - History of Present Illness Patient is a 73-year-old male with a past medical history significant for hypertension hyperlipidemia prostate disorder sleep apnea COPD heart failure has been sent to the hospital for evaluation of testicular pain and a UTI that apparently was diagnosed about a week ago and has been treated with Cipro followed by Levaquin without any improvement patient complaining of mostly pain and swelling to the testicular area for the last few days describing it to be sharp moderate intensity without any radiation patient also complaining of burning of urine and some suprapubic discomfort patient denies high-grade fever on presentation to the hospital the patient was afebrile and no fever have been called subsequently patient was not tachycardic hypotensive or hypoxic did have a white count of 18.9 with a left shift creatinine 0.76 urine has been positive with large leukocyte esterase more than 1-2 WBC with the last culture done on 07/03/2024 did grow ESBL Klebsiella and MRSA patient was given dose of meropenem started on vancomycin infectious disease was consulted for further management of antibiotic therapy Review of Systems Positive point and negatives has been mentioned in the HPI, complete review of systems was performed and all other systems are negative Past Medical History Past Medical History: Atrial Fibrillation, Heart Failure, COPD, Diabetes Mellitus, Eye Disorder, Hyperlipidemia, Hypertension, Prostate Disorder, Sleep Apnea/CPAP/BIPAP, Thyroid Disorder Additional Past Medical History / Comment(s): HX PVC'S. MILD COPD. ANEMIA. HX KIDNEY STONES. BPH. HAD DIABETIC RETINOPATHY TX ON EYES. HAS HAD PICC LINE IN PAST, NOW OUT. CHRONIC BACK AND KNEE PAIN, lymphedema bilateral legs History of Any Multi-Drug Resistant Organisms: None Reported Year Discovered:: 02/19/24 MDRO Source:: left foot Past Surgical History: Orthopedic Surgery Additional Past Surgical History / Comment(s): RT THYROIDECTOMY. MASS FROM BACK, FATTY TUMOR. NASAL MASS REMOVED. LASER EYES, INTRAOCULAR LENS. WOUND ON RT FOOT I&D. LEFT KNEE ARTHROSCOPY, multiple CYST REMOVED FROM TAILBONE Past Anesthesia/Blood Transfusion Reactions: Previous Problems w/ Anesthesia Additional Past Anesthesia/Blood Transfusion Reaction / Comm: OCC TAKES LONG TIME TO AWAKEN. Past Psychological History: No Psychological Hx Reported Smoking Status: Former smoker - Past Family History Mother Family Medical History: COPD Father Family Medical History: Diabetes Mellitus Additional Family Medical History / Comment(s): Heart failure. Medications and Allergies Home Medications Medication Instructions Recorded Confirmed Type Tamsulosin [Flomax] 0.4 mg PO BID 11/17/17 07/07/24 History Albuterol Nebulized [Ventolin 2.5 mg INHALATION RT-Q6H 02/07/24 07/07/24 History Nebulized] Apixaban [Eliquis] 5 mg PO BID 02/07/24 07/07/24 History Hydrocortisone [Cortizone-10] 1 applic TOPICAL Q24H PRN 02/07/24 07/07/24 History Loperamide HCl [Imodium A-D] 2 - 4 mg PO QID PRN MDD 8mg 02/07/24 07/07/24 History Magnesium Hydroxide [Milk of 30 ml PO Q48H PRN 02/07/24 07/07/24 History Magnesia Concentrate] Magnesium Oxide [Mag-Ox] 400 mg PO BID 02/07/24 07/07/24 History Melatonin 5 mg PO HS 02/07/24 07/07/24 History Na Phos,M-B/Na Phos,Di-Ba [Fleet 133 ml RECTAL DAILY PRN 02/07/24 07/07/24 History Adult] Pantoprazole [Protonix] 40 mg PO DAILY@0600 02/07/24 07/07/24 History Spironolactone [Aldactone] 25 mg PO HS 02/07/24 07/07/24 History Tums 750mg Chewable 750 mg PO Q8H PRN 02/07/24 07/07/24 History guaiFENesin [guaiFENesin Oral 10 ml PO Q4H PRN 02/07/24 07/07/24 History Solution] methIMAzole [Tapazole] 5 mg PO DAILY 02/07/24 03/15/24 History Aspirin 81 mg PO DAILY 02/16/24 03/15/24 History Metoprolol Tartrate [Lopressor] 50 mg PO BID 02/16/24 07/07/24 History Amiodarone [Cordarone] 200 mg PO BID tab 02/23/24 07/07/24 Rx Bumetanide [BUMEX] 1 mg PO DAILY tab 02/23/24 07/07/24 Rx Pioglitazone [Actos] 30 mg PO DAILY tab 02/23/24 07/07/24 Rx Atorvastatin Calcium 40 mg PO HS 03/15/24 07/07/24 History Cerave Pm 1 applic TOPICAL DAILY 03/15/24 07/07/24 History HYDROcodone/APAP 5-325MG [[place] 1 tab PO Q4HR PRN 03/15/24 07/07/24 History 5-325] Sennosides/Docusate Sodium [Senna 1 tab PO BID@0800,1700 03/15/24 07/07/24 History Plus 8.6-50 mg Tablet] lisinopriL [Zestril] 5 mg PO HS 03/15/24 07/07/24 History Acetaminophen [Tylenol 8 Hour] 650 mg PO Q4H PRN 07/07/24 07/07/24 History Empagliflozin [Jardiance] 10 mg PO DAILY 07/07/24 07/07/24 History INSULIN LISPRO (HumaLOG) [HumaLOG] See Protocol SQ AC-TID 07/07/24 07/07/24 History Lactose-Reduced Food [Ensure 1 can PO HS 07/07/24 07/07/24 History Original] Nystatin 100,000Unit/gm Cream 1 applic TOPICAL BID@0800,1700 07/07/24 07/07/24 History [Mycostatin Cream] Sodium Chloride [Saline Mist] 1 spray EA NOSTRIL BID PRN 07/07/24 07/07/24 History Triamcinolone 0.1% Cream [Kenalog 1 applic TOPICAL BID 07/07/24 07/07/24 History 0.1% Cream] Tums Ex 750mg 750 mg PO Q8H PRN 07/07/24 07/07/24 History Vashe Wound Therapy 1 applic TOPICAL MOWEFR 07/07/24 07/07/24 History bisacodyL [Dulcolax] 10 mg RECTAL DAILY PRN 07/07/24 07/07/24 History glipiZIDE [Glucotrol] 5 mg PO AC-TID 07/07/24 07/07/24 History polyethylene glycoL 3350 [Miralax] 17 gm PO DAILY 07/07/24 07/07/24 History Allergies Allergy/AdvReac Type Severity Reaction Status Date / Time adhesive Allergy BLISTERING Verified 07/07/24 11:34 RASH amoxicillin Allergy Rash/Hives Verified 07/07/24 11:34 Penicillins Allergy Rash/Hives Verified 07/07/24 11:34 pollen extracts Allergy RHINITIS, Verified 07/07/24 11:34 SORE THROAT Physical Exam Vitals: Vital Signs Temp Pulse Resp BP Pulse Ox 07/07/24 14:32 58 L 07/07/24 14:19 60 07/07/24 14:06 98.7 F 58 L 18 135/54 97 07/07/24 10:13 97.5 F L 87 17 137/71 99 Intake and Output 07/06/24 07/07/24 07/07/24 22:59 06:59 14:59 Other: Weight 92.533 kg GENERAL DESCRIPTION: Elderly male lying in bed, no distress. No tachypnea or accessory muscle of respiration use. HEENT: Shows Pallor , no scleral icterus. Oral mucous membrane is dry. No pharyngeal erythema or thrush NECK: Trachea central, no thyromegaly. LUNGS: Unlabored breathing. Clear to auscultation anteriorly. No wheeze or crackle. HEART: S1, S2, regular rate and rhythm. No loud murmur ABDOMEN: Soft, no tenderness , GENITOURINARY: Did have some testicular erythema with a Fraga catheter EXTREMITIES: No edema of feet. SKIN: No rash, no masses palpable. NEUROLOGICAL: The patient is awake, alert, oriented x3, mood and affect normal. Results CBC & Chem 7: 07/07/24 10:43 07/07/24 10:43 Labs: Abnormal Lab Results - Last 24 Hours (Table) 07/07/24 07/07/24 07/07/24 Range/Units 10:43 10:43 13:12 WBC 18.9 H (3.8-10.6) k/uL RBC 3.59 L (4.30-5.90) m/uL Hgb 10.8 L (13.0-17.5) gm/dL Hct 33.1 L (39.0-53.0) % Neutrophils # 17.3 H (1.3-7.7) k/uL Lymphocytes # 0.7 L (1.0-4.8) k/uL Sodium 134 L (137-145) mmol/L BUN 23 H (9-20) mg/dL Glucose 245 H (74-99) mg/dL ALT 90 H (4-49) U/L Alkaline Phosphatase 167 H (38-126) U/L Total Protein 5.8 L (6.3-8.2) g/dL Albumin 2.7 L (3.5-5.0) g/dL Urine Protein Trace H (Negative) Urine Glucose (UA) 4+ H (Negative) Urine Blood Small H (Negative) Ur Leukocyte Esterase Large H (Negative) Urine RBC 16 H (0-5) /hpf Urine WBC >182 H (0-5) /hpf Urine WBC Clumps Few H (None) /hpf Assessment and Plan (1) Failure of outpatient treatment Current Visit: Yes Status: Acute Code(s): Z78.9 - OTHER SPECIFIED HEALTH STATUS SNOMED Code(s): 921230380 (2) UTI (urinary tract infection) Current Visit: Yes Status: Acute Code(s): N39.0 - URINARY TRACT INFECTION, SITE NOT SPECIFIED SNOMED Code(s): 97063512 (3) Leukocytosis Current Visit: Yes Status: Acute Code(s): D72.829 - ELEVATED WHITE BLOOD CELL COUNT, UNSPECIFIED SNOMED Code(s): 096734018 (4) MRSA (methicillin resistant staph aureus) culture positive Current Visit: Yes Status: Acute Code(s): Z22.322 - CARRIER OR SUSPECTED CARRIER OF METHICILLIN RESIS STAPH SNOMED Code(s): 166579583 (5) Penicillin allergy Current Visit: No Status: Acute Code(s): Z88.0 - ALLERGY STATUS TO PENICILLIN SNOMED Code(s): 86976526 Plan: 1patient is in the hospital with burning painful urination as well as suprapubic pain testicular swelling and pain in this patient who did have urine culture done on 07/03/2024 that was positive for ESBL Klebsiella and MRSA failing outpatient oral Cipro and Levaquin therapy 2-leukocytosis likely due to complicated UTI 3-penicillin allergy that will limit number of antibiotics safe to use 4patient will be treated with vancomycin pharmacy to dose target trough of 15 while watching kidney function and Vanco trough closely and start the patient on meropenem/Invanz while waiting for repeat culture to finalize Son at the bedside question concern answered We will follow on clinical condition and cultures to further adjust medication if needed Thank you for this consultation we will follow the patient along with you Dictation was produced using [employer] dictation software. please excuse any grammatical, word or spelling errors. Time with Patient: Greater than 30
[2024-07-08] MEDS: DAPAGLIFLOZIN PROPANEDIOL 5 MG TABLET PO SCH (08:15)
[2024-07-08] MEDS: ASPIRIN 81 MG PO SCH (08:15)
[2024-07-08] MEDS: polyethylene glycoL 3350 17 GM POWD.PACK PO SCH (08:15)
[2024-07-08 09:43] LABS: Basophils # (A) 0.04 X 10*3/uL (0.00-0.10); Basophils % (A) 0.3 %; Eosinophils # (A) 0.11 X 10*3/uL (0.04-0.35); Eosinophils % (A) 0.8 %; HCT 31.3 % (39.6-50.0); HGB 9.8 g/dL (13.0-17.0); Lymphocytes # (A) 1.05 X 10*3/uL (0.90-5.00); Lymphocytes % (A) 7.3 %; MCH 29.3 pg (27.0-32.0); MCHC 31.3 g/dL (32.0-37.0); MCV 93.4 FL (80.0-97.0); Monocytes # (A) 0.86 X 10*3/uL (0.20-1.00); NRBC Per 100 WBC 0 X 10*3/uL (0.00-0.01); Neutrophils # (A) 12.24 X 10*3/uL (1.80-7.70); Neutrophils % (A) 84.7 %; Platelet Count 348 X 10*3/uL (140-440); RBC 3.35 X 10*6/uL (4.40-5.60); RDW 14.5 % (11.5-14.5); WBC 14.43 X 10*3/uL (4.50-10.00)
--- NOTE | 2024-07-08 09:58 | P.HPIM ---
History of Present Illness H&P Date: 07/07/24 Francisco Cao, is a 73-year-old male resident of [facility] who was transferred to [facility] emergency room due to urinary tract infection with multiple resistant organisms, and pain in the left testicle. He was evaluated in the emergency room vital examination on presentation revealed a temperature of 97.5 pulse 87 respiration 17 blood pressure 137/71 pulse ox 99% on room air Laboratory data revealed a white blood count of 18.9 hemoglobin 10.8 platelet count 352 sodium 134 BUN 23 creatinine 0.76 hemoglobin A1c 8.4 albumin is low at 2.7 Urine culture from the [facility] was positive for Klebsiella pneumonia ESBL MDRO and methicillin-resistant Staphylococcus aureus Testing in the emergency room : Patient had an ultrasound of the scrotum that revealed soft tissue density with vascularity between the testicles. Patient was admitted to medical floor for further evaluation and treatment Past medical history is significant for history of hypertension, history of hy perlipidemia, history of hyperthyroidism, history of diabetes mellitus, history of atrial fibrillation, history of chronic systolic congestive heart failure, history of physical debility, history of recurrent urinary tract infections On review of systems patient is alert and oriented x 3 in no apparent distress there is no fever or chills no headache or dizziness no chest pain no shortness of breath no cough no nausea or vomiting no abdominal pain no diarrhea no blood in the stools no burning with urination no he has frequency with urination, and pain in the left testicle area. Patient has generalized weakness with inability to stand or walk, he is able to pivot from bed to wheelchair with help. Past Medical History Past Medical History: Atrial Fibrillation, Heart Failure, COPD, Diabetes Mellitus, Eye Disorder, Hyperlipidemia, Hypertension, Prostate Disorder, Sleep Apnea/CPAP/BIPAP, Thyroid Disorder Additional Past Medical History / Comment(s): HX PVC'S. MILD COPD. ANEMIA. HX KIDNEY STONES. BPH. HAD DIABETIC RETINOPATHY TX ON EYES. HAS HAD PICC LINE IN PAST, NOW OUT. CHRONIC BACK AND KNEE PAIN, lymphedema bilateral legs History of Any Multi-Drug Resistant Organisms: None Reported Date of last positivie culture/infection: 02/19/24 MDRO Source:: left foot Past Surgical History: Orthopedic Surgery Additional Past Surgical History / Comment(s): RT THYROIDECTOMY. MASS FROM BACK, FATTY TUMOR. NASAL MASS REMOVED. LASER EYES, INTRAOCULAR LENS. WOUND ON RT FOOT I&D. LEFT KNEE ARTHROSCOPY, multiple CYST REMOVED FROM TAILBONE Past Anesthesia/Blood Transfusion Reactions: Previous Problems w/ Anesthesia Additional Past Anesthesia/Blood Transfusion Reaction / Comment(s): OCC TAKES LONG TIME TO AWAKEN. Past Psychological History: No Psychological Hx Reported Smoking Status: Former smoker - Past Family History Mother Family Medical History: COPD Father Family Medical History: Diabetes Mellitus Additional Family Medical History / Comment(s): Heart failure. Medications and Allergies Home Medications Medication Instructions Recorded Confirmed Type Tamsulosin [Flomax] 0.4 mg PO BID 11/17/17 07/07/24 History Albuterol Nebulized [Ventolin 2.5 mg INHALATION RT-Q6H 02/07/24 07/07/24 History Nebulized] Apixaban [Eliquis] 5 mg PO BID 02/07/24 07/07/24 History Hydrocortisone [Cortizone-10] 1 applic TOPICAL Q24H PRN 02/07/24 07/07/24 History Loperamide HCl [Imodium A-D] 2 - 4 mg PO QID PRN MDD 8mg 02/07/24 07/07/24 History Magnesium Hydroxide [Milk of 30 ml PO Q48H PRN 02/07/24 07/07/24 History Magnesia Concentrate] Magnesium Oxide [Mag-Ox] 400 mg PO BID 02/07/24 07/07/24 History Melatonin 5 mg PO HS 02/07/24 07/07/24 History Na Phos,M-B/Na Phos,Di-Ba [Fleet 133 ml RECTAL DAILY PRN 02/07/24 07/07/24 History Adult] Pantoprazole [Protonix] 40 mg PO DAILY@0600 02/07/24 07/07/24 History Spironolactone [Aldactone] 25 mg PO HS 02/07/24 07/07/24 History Tums 750mg Chewable 750 mg PO Q8H PRN 02/07/24 07/07/24 History guaiFENesin [guaiFENesin Oral 10 ml PO Q4H PRN 02/07/24 07/07/24 History Solution] methIMAzole [Tapazole] 5 mg PO DAILY 02/07/24 03/15/24 History Aspirin 81 mg PO DAILY 02/16/24 03/15/24 History Metoprolol Tartrate [Lopressor] 50 mg PO BID 02/16/24 07/07/24 History Amiodarone [Cordarone] 200 mg PO BID tab 02/23/24 07/07/24 Rx Bumetanide [BUMEX] 1 mg PO DAILY tab 02/23/24 07/07/24 Rx Pioglitazone [Actos] 30 mg PO DAILY tab 02/23/24 07/07/24 Rx Atorvastatin Calcium 40 mg PO HS 03/15/24 07/07/24 History Cerave Pm 1 applic TOPICAL DAILY 03/15/24 07/07/24 History HYDROcodone/APAP 5-325MG [[place] 1 tab PO Q4HR PRN 03/15/24 07/07/24 History 5-325] Sennosides/Docusate Sodium [Senna 1 tab PO BID@0800,1700 03/15/24 07/07/24 History Plus 8.6-50 mg Tablet] lisinopriL [Zestril] 5 mg PO HS 03/15/24 07/07/24 History Acetaminophen [Tylenol 8 Hour] 650 mg PO Q4H PRN 07/07/24 07/07/24 History Empagliflozin [Jardiance] 10 mg PO DAILY 07/07/24 07/07/24 History INSULIN LISPRO (HumaLOG) [HumaLOG] See Protocol SQ AC-TID 07/07/24 07/07/24 History Lactose-Reduced Food [Ensure 1 can PO HS 07/07/24 07/07/24 History Original] Nystatin 100,000Unit/gm Cream 1 applic TOPICAL BID@0800,1700 07/07/24 07/07/24 History [Mycostatin Cream] Sodium Chloride [Saline Mist] 1 spray EA NOSTRIL BID PRN 07/07/24 07/07/24 Histo ry Triamcinolone 0.1% Cream [Kenalog 1 applic TOPICAL BID 07/07/24 07/07/24 History 0.1% Cream] Tums Ex 750mg 750 mg PO Q8H PRN 07/07/24 07/07/24 History Vashe Wound Therapy 1 applic TOPICAL MOWEFR 07/07/24 07/07/24 History bisacodyL [Dulcolax] 10 mg RECTAL DAILY PRN 07/07/24 07/07/24 History glipiZIDE [Glucotrol] 5 mg PO AC-TID 07/07/24 07/07/24 History polyethylene glycoL 3350 [Miralax] 17 gm PO DAILY 07/07/24 07/07/24 History Allergies Allergy/AdvReac Type Severity Reaction Status Date / Time adhesive Allergy BLISTERING Verified 07/07/24 11:34 RASH amoxicillin Allergy Rash/Hives Verified 07/07/24 11:34 Penicillins Allergy Rash/Hives Verified 07/07/24 11:34 pollen extracts Allergy RHINITIS, Verified 07/07/24 11:34 SORE THROAT Physical Exam Vitals: Vital Signs Temp Pulse Resp BP Pulse Ox 07/07/24 10:13 97.5 F L 87 17 137/71 99 Intake and Output 07/06/24 07/07/24 07/07/24 22:59 06:59 14:59 Other: Weight 92.533 kg In general patient is alert and oriented x 3 in no distress HEENT head normocephalic and atraumatic Neck is supple no JVD no goiter no lymphadenopathy no carotid bruit Chest examination is clear to auscultation no crackles no wheezing Cardiac exam reveals regular heart sounds S1 and S2 no gallops no murmurs Abdomen is soft nontender no organomegaly with normal bowel sounds Extremity exam reveals no edema no cyanosis or clubbing, patient has protective boots on both feet Neurological examination reveals generalized weakness no gross focal deficits Results CBC & Chem 7: 07/08/24 02:46 07/07/24 10:43 Labs: Abnormal Lab Results - Last 24 Hours (Table) 07/07/24 07/07/24 Range/Units 10:43 10:43 WBC 18.9 H (3.8-10.6) k/uL RBC 3.59 L (4.30-5.90) m/uL Hgb 10.8 L (13.0-17.5) gm/dL Hct 33.1 L (39.0-53.0) % Neutrophils # 17.3 H (1.3-7.7) k/uL Lymphocytes # 0.7 L (1.0-4.8) k/uL Sodium 134 L (137-145) mmol/L BUN 23 H (9-20) mg/dL Glucose 245 H (74-99) mg/dL ALT 90 H (4-49) U/L Alkaline Phosphatase 167 H (38-126) U/L Total Protein 5.8 L (6.3-8.2) g/dL Albumin 2.7 L (3.5-5.0) g/dL Assessment and Plan Plan: Urinary tract infection Multiple antibiotic allergies Pain in the left testicle Underlying history of hypertension Underlying history of hyperlipidemia Underlying history of hyperthyroidism Underlying history of diabetes mellitus Underlying history of atrial fibrillation Underlying history of chronic systolic congestive heart failure without exacerbation at this time Underlying history of pulmonary hypertension with enlarged right ventricle Underlying history of physical debility patient is wheelchair and bedbound At this time patient was seen and examined Home medications reviewed and reordered Patient wishes to be DNR order was entered Infectious disease consultation and urology consultation requested For DVT prophylaxis will continue with Darin Will follow closely during this admission
--- NOTE | 2024-07-08 10:01 | P.PN ---
Subjective Progress Note Date: 07/08/24 Francisco Cao, is a 73-year-old male resident of [facility] who was transferred to [facility] emergency room due to urinary tract infection with multiple resistant organisms, and pain in the left testicle. He was evaluated in the emergency room vital examination on presentation rev ealed a temperature of 97.5 pulse 87 respiration 17 blood pressure 137/71 pulse ox 99% on room air Laboratory data revealed a white blood count of 18.9 hemoglobin 10.8 platelet count 352 sodium 134 BUN 23 creatinine 0.76 hemoglobin A1c 8.4 albumin is low at 2.7 Urine culture from the [facility] was positive for Klebsiella pneumonia ESBL MDRO and methicillin-resistant Staphylococcus aureus Testing in the emergency room : Patient had an ultrasound of the scrotum that revealed soft tissue density with vascularity between the testicles. Patient was admitted to medical floor for further evaluation and treatment Past medical history is significant for history of hypertension, history of hyperlipidemia, history of hyperthyroidism, history of diabetes mellitus, history of atrial fibrillation, history of chronic systolic congestive heart failure, history of physical debility, history of recurrent urinary tract infections On review of systems patient is alert and oriented x 3 in no apparent distress there is no fever or chills no headache or dizziness no chest pain no shortness of breath no cough no nausea or vomiting no abdominal pain no diarrhea no blood in the stools no burning with urination no he has frequency with urination, and pain in the left testicle area. Patient has generalized weakness with inability to stand or walk, he is able to pivot from bed to wheelchair with help. On 07/08/2024 patient was seen and examined on the medical floor he is alert and oriented x 3 in no apparent distress he reports some improvement in the pain in the left testicle area otherwise he denies any complaints at this time there is no fever or chills no headache or dizziness no chest pain no shortness of breath no cough no nausea or vomiting no abdominal pain no diarrhea and no urinary sy mptoms. Vital examination reveals a temperature of 98 pulse 58 respiration 16 blood pressure 118/67 pulse ox 97% on room air white blood count is 14.43 hemoglobin 9.8 platelet count 348 Objective - Vital Signs Vital signs: Vital Signs Temp 99.2 F 07/08/24 02:00 Pulse 57 L 07/08/24 02:00 Resp 17 07/08/24 02:00 BP 119/58 07/08/24 02:00 Pulse Ox 93 L 07/08/24 02:00 FiO2 Intake & Output 07/07/24 07/08/24 07/08/24 18:59 06:59 18:59 Output Total 950 Balance -950 Weight 92.533 kg Output: Urine 950 Other: Voiding Method Urinal External Catheter # Voids 1 # Bowel Movements 1 - Exam In general patient is alert and oriented x 3 in no distress HEENT head normocephalic and atraumatic Neck is supple no JVD no goiter no lymphadenopathy no carotid bruit Chest examination is clear to auscultation no crackles no wheezing Cardiac exam reveals regular heart sounds S1 and S2 no gallops no murmurs Abdomen is soft nontender no organomegaly with normal bowel sounds Extremity exam reveals no edema no cyanosis or clubbing, patient has protective boots on both feet Neurological examination reveals generalized weakness no gross focal deficits - Labs CBC & Chem 7: 07/08/24 02:46 07/07/24 10:43 Labs: Abnormal Lab Results - Last 24 Hours (Table) 07/07/24 07/07/24 07/07/24 Range/Units 10:43 10:43 10:43 WBC 18.9 H (3.8-10.6) k/uL RBC 3.59 L (4.30-5.90) m/uL Hgb 10.8 L (13.0-17.5) gm/dL Hct 33.1 L (39.0-53.0) % Neutrophils # 17.3 H (1.3-7.7) k/uL Lymphocytes # 0.7 L (1.0-4.8) k/uL Sodium 134 L (137-145) mmol/L BUN 23 H (9-20) mg/dL Glucose 245 H (74-99) mg/dL POC Glucose (mg/dL) (70-110) mg/dL Hemoglobin A1c 8.4 H (<=6.0) % ALT 90 H (4-49) U/L Alkaline Phosphatase 167 H (38-126) U/L Total Protein 5.8 L (6.3-8.2) g/dL Albumin 2.7 L (3.5-5.0) g/dL Urine Protein (Negative) Urine Glucose (UA) (Negative) Urine Blood (Negative) Ur Leukocyte Esterase (Negative) Urine RBC (0-5) /hpf Urine WBC (0-5) /hpf Urine WBC Clumps (None) /hpf 07/07/24 07/07/24 07/08/24 Range/Units 13:12 21:48 06:37 WBC (3.8-10.6) k/uL RBC (4.30-5.90) m/uL Hgb (13.0-17.5) gm/dL Hct (39.0-53.0) % Neutrophils # (1.3-7.7) k/uL Lymphocytes # (1.0-4.8) k/uL Sodium (137-145) mmol/L BUN (9-20) mg/dL Glucose (74-99) mg/dL POC Glucose (mg/dL) 191 H 69 L (70-110) mg/dL Hemoglobin A1c (<=6.0) % ALT (4-49) U/L Alkaline Phosphatase (38-126) U/L Total Protein (6.3-8.2) g/dL Albumin (3.5-5.0) g/dL Urine Protein Trace H (Negative) Urine Glucose (UA) 4+ H (Negative) Urine Blood Small H (Negative) Ur Leukocyte Esterase Large H (Negative) Urine RBC 16 H (0-5) /hpf Urine WBC >182 H (0-5) /hpf Urine WBC Clumps Few H (None) /hpf Assessment and Plan Plan: Urinary tract infection Multiple antibiotic allergies Pain in the left testicle Underlying history of hypertension Underlying history of hyperlipidemia Underlying history of hyperthyroidism Underlying history of diabetes mellitus Underlying history of atrial fibrillation Underlying history of chronic systolic congestive heart failure without exa cerbation at this time Underlying history of pulmonary hypertension with enlarged right ventricle Underlying history of physical debility patient is wheelchair and bedbound At this time patient was seen and examined Home medications reviewed and reordered Patient wishes to be DNR order was entered Infectious disease consultation and urology consultation requested For DVT prophylaxis will continue with Eliquis Will follow closely during this admission
[2024-07-08 10:21] LABS: ALT 96 U/L (10-49); AST 44 U/L (14-35); Albumin 2.6 g/dL (3.8-4.9); Albumin/Globulin Ratio 0.87 Ratio (1.60-3.17); Alkaline Phosphatase 162 U/L (41-126); BUN/Creat Ratio 23.44 Ratio (12.00-20.00); Blood Urea Nitrogen 21.1 mg/dL (9.0-27.0); Calcium 8.6 mg/dL (8.7-10.3); Carbon Dioxide 26.6 mmol/L (21.6-31.8); Chloride 101 mmol/L (96-109); Glucose 99 mg/dL (70-110); Sodium 136 mmol/L (135-145); Total Bilirubin 0.5 mg/dL (0.3-1.2); Total Protein 5.6 g/dL (6.2-8.2)
[2024-07-08] MEDS: methIMAzole 5 MG TAB PO SCH (10:39)
[2024-07-08] MEDS: ERTAPENEM 1 GM in SODIUM CHLORIDE 0.9% 50 ML IVPB SCH (10:39)
[2024-07-08] MEDS: BUMETANIDE 1 MG TAB PO SCH (10:39)
[2024-07-08] MEDS: PIOGLITAZONE 30 MG TAB PO SCH (10:39)
[2024-07-08] MEDS: MINERAL OIL-WHITE PETROLATUM 120 GM JAR TOPICAL SCH (10:39)
[2024-07-08 11:05] LABS: Glucose,Whole Blood 203 mg/dL (70-110)
--- NOTE | 2024-07-08 12:35 | P.GSCN ---
History of Present Illness Consult date: 07/08/24 Reason for Consult: UTI, left testicular pain Requesting physician: Aquilino Garber History of present illness: The patient is a 73-year-old white male with a history of hypertension, hyperlipidemia, hypothyroidism, diabetes mellitus, CHF, and A-fib. He has been treated for 6 or 7 UTIs throughout his lifetime, dating back to his teen years. He takes tamsulosin for BPH. He has resided at [facility] since January for rehab. He states that he has been treated for a myriad of infections in the past 6 months. For the past week, he has experienced left testicular pain. The urine culture showed resistant organisms, and he was transferred to the ER and admitted. The urine culture shows Klebsiella pneumonia ESBL MDRO and MRSA. Scrotal ultrasound showed a hyperechoic soft tissue density between the testes. No abscess was noted. Past Medical History Past Medical History: Atrial Fibrillation, Heart Failure, COPD, Diabetes Mellitus, Eye Disorder, Hyperlipidemia, Hypertension, Prostate Disorder, Sleep Apnea/CPAP/BIPAP, Thyroid Disorder Additional Past Medical History / Comment(s): HX PVC'S. MILD COPD. ANEMIA. HX KIDNEY STONES. BPH. HAD DIABETIC RETINOPATHY TX ON EYES. HAS HAD PICC LINE IN PAST, NOW OUT. CHRONIC BACK AND KNEE PAIN, lymphedema bilateral legs History of Any Multi-Drug Resistant Organisms: None Reported Year Discovered:: 02/19/24 MDRO Source:: left foot Past Surgical History: Orthopedic Surgery Additional Past Surgical History / Comment(s): RT THYROIDECTOMY. MASS FROM BACK, FATTY TUMOR. NASAL MASS REMOVED. LASER EYES, INTRAOCULAR LENS. WOUND ON RT FOOT I&D. LEFT KNEE ARTHROSCOPY, multiple CYST REMOVED FROM TAILBONE Past Anesthesia/Blood Transfusion Reactions: Previous Problems w/ Anesthesia Additional Past Anesthesia/Blood Transfusion Reaction / Comm: OCC TAKES LONG TIME TO AWAKEN. Past Psychological History: No Psychological Hx Reported Smoking Status: Former smoker - Past Family History Mother Family Medical History: COPD Father Family Medical History: Diabetes Mellitus Additional Family Medical History / Comment(s): Heart failure. Medications and Allergies Home Medications Medication Instructions Recorded Confirmed Type Tamsulosin [Flomax] 0.4 mg PO BID 11/17/17 07/07/24 History Albuterol Nebulized [Ventolin 2.5 mg INHALATION RT-Q6H 02/07/24 07/07/24 History Nebulized] Apixaban [Eliquis] 5 mg PO BID 02/07/24 07/07/24 History Hydrocortisone [Cortizone-10] 1 applic TOPICAL Q24H PRN 02/07/24 07/07/24 History Loperamide HCl [Imodium A-D] 2 - 4 mg PO QID PRN MDD 8mg 02/07/24 07/07/24 History Magnesium Hydroxide [Milk of 30 ml PO Q48H PRN 02/07/24 07/07/24 History Magnesia Concentrate] Magnesium Oxide [Mag-Ox] 400 mg PO BID 02/07/24 07/07/24 History Melatonin 5 mg PO HS 02/07/24 07/07/24 History Na Phos,M-B/Na Phos,Di-Ba [Fleet 133 ml RECTAL DAILY PRN 02/07/24 07/07/24 History Adult] Pantoprazole [Protonix] 40 mg PO DAILY@0600 02/07/24 07/07/24 History Spironolactone [Aldactone] 25 mg PO HS 02/07/24 07/07/24 History Tums 750mg Chewable 750 mg PO Q8H PRN 02/07/24 07/07/24 History guaiFENesin [guaiFENesin Oral 10 ml PO Q4H PRN 02/07/24 07/07/24 History Solution] methIMAzole [Tapazole] 5 mg PO DAILY 02/07/24 03/15/24 History Aspirin 81 mg PO DAILY 02/16/24 03/15/24 History Metoprolol Tartrate [Lopressor] 50 mg PO BID 02/16/24 07/07/24 History Amiodarone [Cordarone] 200 mg PO BID tab 02/23/24 07/07/24 Rx Bumetanide [BUMEX] 1 mg PO DAILY tab 02/23/24 07/07/24 Rx Pioglitazone [Actos] 30 mg PO DAILY tab 02/23/24 07/07/24 Rx Atorvastatin Calcium 40 mg PO HS 03/15/24 07/07/24 History Cerave Pm 1 applic TOPICAL DAILY 03/15/24 07/07/24 History HYDROcodone/APAP 5-325MG [[place] 1 tab PO Q4HR PRN 03/15/24 07/07/24 History 5-325] Sennosides/Docusate Sodium [Senna 1 tab PO BID@0800,1700 03/15/24 07/07/24 History Plus 8.6-50 mg Tablet] lisinopriL [Zestril] 5 mg PO HS 03/15/24 07/07/24 History Acetaminophen [Tylenol 8 Hour] 650 mg PO Q4H PRN 07/07/24 07/07/24 History Empagliflozin [Jardiance] 10 mg PO DAILY 07/07/24 07/07/24 History INSULIN LISPRO (HumaLOG) [HumaLOG] See Protocol SQ AC-TID 07/07/24 07/07/24 His tory Lactose-Reduced Food [Ensure 1 can PO HS 07/07/24 07/07/24 History Original] Nystatin 100,000Unit/gm Cream 1 applic TOPICAL BID@0800,1700 07/07/24 07/07/24 History [Mycostatin Cream] Sodium Chloride [Saline Mist] 1 spray EA NOSTRIL BID PRN 07/07/24 07/07/24 History Triamcinolone 0.1% Cream [Kenalog 1 applic TOPICAL BID 07/07/24 07/07/24 History 0.1% Cream] Tums Ex 750mg 750 mg PO Q8H PRN 07/07/24 07/07/24 History Vashe Wound Therapy 1 applic TOPICAL MOWEFR 07/07/24 07/07/24 History bisacodyL [Dulcolax] 10 mg RECTAL DAILY PRN 07/07/24 07/07/24 History glipiZIDE [Glucotrol] 5 mg PO AC-TID 07/07/24 07/07/24 History polyethylene glycoL 3350 [Miralax] 17 gm PO DAILY 07/07/24 07/07/24 History Allergies Allergy/AdvReac Type Severity Reaction Status Date / Time adhesive Allergy BLISTERING Verified 07/07/24 11:34 RASH amoxicillin Allergy Rash/Hives Verified 07/07/24 11:34 Penicillins Allergy Rash/Hives Verified 07/07/24 11:34 pollen extracts Allergy RHINITIS, Verified 07/07/24 11:34 SORE THROAT Surgical - Exam Vital Signs Temp Pulse Resp BP Pulse Ox 97.5 F L 87 17 137/71 99 07/07/24 10:13 07/07/24 10:13 07/07/24 10:13 07/07/24 10:13 07/07/24 10:13 - General well developed, well nourished, no distress - Respiratory normal respiratory effort - Genitourinary Normal phallus, normal urethral meatus. The right testicle is palpably normal. The left testicle is hard, tender, and enlarged. There is no fluctuance, cellulitis, or drainage. - Psychiatric oriented to time, oriented to person, oriented to place, speech is normal, memory intact Results - Labs 07/08/24 02:46 07/08/24 02:46 Abnormal Lab Results - Last 24 Hours (Table) 07/07/24 07/07/24 07/07/24 Range/Units 10:43 13:12 21:48 WBC (4.50-10.00) X 10*3/uL RBC (4.40-5.60) X 10*6/uL Hgb (13.0-17.0) g/dL Hct (39.6-50.0) % MCHC (32.0-37.0) g/dL MPV (9.5-12.2) FL Immature Gran # (0.00-0.04) X 10*3/uL Neutrophils # (1.80-7.70) X 10*3/uL BUN/Creatinine Ratio (12.00-20.00) Ratio POC Glucose (mg/dL) 191 H (70-110) mg/dL Hemoglobin A1c 8.4 H (<=6.0) % Calcium (8.7-10.3) mg/dL AST (14-35) U/L ALT (10-49) U/L Alkaline Phosphatase (41-126) U/L Total Protein (6.2-8.2) g/dL Albumin (3.8-4.9) g/dL Albumin/Globulin Ratio (1.60-3.17) Ratio Urine Protein Trace H (Negative) Urine Glucose (UA) 4+ H (Negative) Urine Blood Small H (Negative) Ur Leukocyte Esterase Large H (Negative) Urine RBC 16 H (0-5) /hpf Urine WBC >182 H (0-5) /hpf Urine WBC Clumps Few H (None) /hpf 07/08/24 07/08/24 07/08/24 Range/Units 02:46 02:46 06:37 WBC 14.43 H (4.50-10.00) X 10*3/uL RBC 3.35 L (4.40-5.60) X 10*6/uL Hgb 9.8 L (13.0-17.0) g/dL Hct 31.3 L (39.6-50.0) % MCHC 31.3 L (32.0-37.0) g/dL MPV 9.0 L (9.5-12.2) FL Immature Gran # 0.13 H (0.00-0.04) X 10*3/uL Neutrophils # 12.24 H (1.80-7.70) X 10*3/uL BUN/Creatinine Ratio 23.44 H (12.00-20.00) Ratio POC Glucose (mg/dL) 69 L (70-110) mg/dL Hemoglobin A1c (<=6.0) % Calcium 8.6 L (8.7-10.3) mg/dL AST 44 H (14-35) U/L ALT 96 H (10-49) U/L Alkaline Phosphatase 162 H (41-126) U/L Total Protein 5.6 L (6.2-8.2) g/dL Albumin 2.6 L (3.8-4.9) g/dL Albumin/Globulin Ratio 0.87 L (1.60-3.17) Ratio Urine Protein (Negative) Urine Glucose (UA) (Negative) Urine Blood (Negative) Ur Leukocyte Esterase (Negative) Urine RBC (0-5) /hpf Urine WBC (0-5) /hpf Urine WBC Clumps (None) /hpf 07/08/24 Range/Units 11:04 WBC (4.50-10.00) X 10*3/uL RBC (4.40-5.60) X 10*6/uL Hgb (13.0-17.0) g/dL Hct (39.6-50.0) % MCHC (32.0-37.0) g/dL MPV (9.5-12.2) FL Immature Gran # (0.00-0.04) X 10*3/uL Neutrophils # (1.80-7.70) X 10*3/uL BUN/Creatinine Ratio (12.00-20.00) Ratio POC Glucose (mg/dL) 203 H (70-110) mg/dL Hemoglobin A1c (<=6.0) % Calcium (8.7-10.3) mg/dL AST (14-35) U/L ALT (10-49) U/L Alkaline Phosphatase (41-126) U/L Total Protein (6.2-8.2) g/dL Albumin (3.8-4.9) g/dL Albumin/Globulin Ratio (1.60-3.17) Ratio Urine Protein (Negative) Urine Glucose (UA) (Negative) Urine Blood (Negative) Ur Leukocyte Esterase (Negative) Urine RBC (0-5) /hpf Urine WBC (0-5) /hpf Urine WBC Clumps (None) /hpf Diabetes panel 07/07/24 07/08/24 Range/Units 10:43 02:46 Sodium 136 (135-145) mmol/L Potassium 4.0 (3.5-5.5) mmol/L Chloride 101 (96-109) mmol/L Carbon Dioxide 26.6 (21.6-31.8) mmol/L BUN 21.1 (9.0-27.0) mg/dL Creatinine 0.9 (0.6-1.5) mg/dL Glucose 99 (70-110) mg/dL Hemoglobin A1c 8.4 H (<=6.0) % Calcium 8.6 L (8.7-10.3) mg/dL AST 44 H (14-35) U/L ALT 96 H (10-49) U/L Alkaline Phosphatase 162 H (41-126) U/L Total Protein 5.6 L (6.2-8.2) g/dL Albumin 2.6 L (3.8-4.9) g/dL Thyroid panel 07/07/24 Range/Units 10:43 TSH 2.030 (0.465-4.680) mIU/L Calcium panel 07/08/24 Range/Units 02:46 Calcium 8.6 L (8.7-10.3) mg/dL Albumin 2.6 L (3.8-4.9) g/dL Pituitary panel 07/07/24 07/08/24 Range/Units 10:43 02:46 Sodium 136 (135-145) mmol/L Potassium 4.0 (3.5-5.5) mmol/L Chloride 101 (96-109) mmol/L Carbon Dioxide 26.6 (21.6-31.8) mmol/L BUN 21.1 (9.0-27.0) mg/dL Creatinine 0.9 (0.6-1.5) mg/dL Glucose 99 (70-110) mg/dL Calcium 8.6 L (8.7-10.3) mg/dL TSH 2.030 (0.465-4.680) mIU/L Adrenal panel 07/08/24 Range/Units 02:46 Sodium 136 (135-145) mmol/L Potassium 4.0 (3.5-5.5) mmol/L Chloride 101 (96-109) mmol/L Carbon Dioxide 26.6 (21.6-31.8) mmol/L BUN 21.1 (9.0-27.0) mg/dL Creatinine 0.9 (0.6-1.5) mg/dL Glucose 99 (70-110) mg/dL Calcium 8.6 L (8.7-10.3) mg/dL Total Bilirubin 0.5 (0.3-1.2) mg/dL AST 44 H (14-35) U/L ALT 96 H (10-49) U/L Alkaline Phosphatase 162 H (41-126) U/L Total Protein 5.6 L (6.2-8.2) g/dL Albumin 2.6 L (3.8-4.9) g/dL - Imaging US - pelvic: report reviewed Assessment and Plan (1) UTI (urinary tract infection) Current Visit: Yes Status: Acute Code(s): N39.0 - URINARY TRACT INFECTION, SITE NOT SPECIFIED SNOMED Code(s): 77399546 (2) Orchitis of left testicle Current Visit: Yes Status: Acute Code(s): N45.2 - ORCHITIS SNOMED Code(s): 939500468 Plan: The patient is receiving ertapenem and vancomycin to treat the 2 resistant organisms found on the recent blood culture. He will continue to receive tamsulosin. Bladder scan will be utilized to ensure adequate bladder emptying. I explained to the patient that with proper antibiotic therapy, I would anticipate resolution of his testicular pain in 2 to 3 days, though the swelling will take several weeks to resolve. Time with Patient: Greater than 30
[2024-07-08] MEDS: ACETAMINOPHEN TAB 325 MG TAB PO PRN (13:26)
[2024-07-08] MEDS: NYSTATIN 100,000 UNIT/GM POWD 15 GM TOPICAL SCH (13:26)
[2024-07-08 16:39] LABS: Glucose,Whole Blood 186 mg/dL (70-110)
[2024-07-08 19:59] LABS: Glucose,Whole Blood 191 mg/dL (70-110)
[2024-07-09 06:24] LABS: Glucose,Whole Blood 143 mg/dL (70-110)
--- NOTE | 2024-07-09 08:17 | P.PN ---
Subjective Progress Note Date: 07/09/24 Francisco Cao, is a 73-year-old male resident of [facility] who was transferred to [facility] emergency room due to urinary tract infection with multiple resistant organisms, and pain in the left testicle. He was evaluated in the emergency room vital examination on presentation rev ealed a temperature of 97.5 pulse 87 respiration 17 blood pressure 137/71 pulse ox 99% on room air Laboratory data revealed a white blood count of 18.9 hemoglobin 10.8 platelet count 352 sodium 134 BUN 23 creatinine 0.76 hemoglobin A1c 8.4 albumin is low at 2.7 Urine culture from the [place] [facility] was positive for Klebsiella pneumonia ESBL MDRO and methicillin-resistant Staphylococcus aureus Testing in the emergency room : Patient had an ultrasound of the scrotum that revealed soft tissue density with vascularity between the testicles. Patient was admitted to medical floor for further evaluation and treatment Past medical history is significant for history of hypertension, history of hyperlipidemia, history of hyperthyroidism, history of diabetes mellitus, history of atrial fibrillation, history of chronic systolic congestive heart failure, history of physical debility, history of recurrent urinary tract infections On review of systems patient is alert and oriented x 3 in no apparent distress there is no fever or chills no headache or dizziness no chest pain no shortness of breath no cough no nausea or vomiting no abdominal pain no diarrhea no blood in the stools no burning with urination no he has frequency with urination, and pain in the left testicle area. Patient has generalized weakness with inability to stand or walk, he is able to pivot from bed to wheelchair with help. On 07/08/2024 patient was seen and examined on the medical floor he is alert and oriented x 3 in no apparent distress he reports some improvement in the pain in the left testicle area otherwise he denies any complaints at this time there is no fever or chills no headache or dizziness no chest pain no shortness of breath no cough no nausea or vomiting no abdominal pain no diarrhea and no urinary sy mptoms. Vital examination reveals a temperature of 98 pulse 58 respiration 16 blood pressure 118/67 pulse ox 97% on room air white blood count is 14.43 hemoglobin 9.8 platelet count 348 On 07/09/2024 patient was seen and examined on the medical floor he is alert and oriented x 3 in no apparent distress he reports improvement in the pain in the left testicle area otherwise he denies any complaints at this time there is no fever or chills no headache or dizziness no chest pain no shortness of breath no cough no nausea or vomiting no abdominal pain no diarrhea and no urinary symptoms. Urology consult reviewed continue with current IV antibiotic will recheck labs and follow in a.m.. Objective - Vital Signs Vital signs: Vital Signs Temp 98.6 F 07/09/24 00:30 Pulse 52 L 07/09/24 00:30 Resp 17 07/09/24 00:30 BP 132/57 07/09/24 00:30 Pulse Ox 95 07/09/24 00:30 FiO2 Intake & Output 07/08/24 07/09/24 07/09/24 18:59 06:59 18:59 Intake Total 1650 2200 Output Total 650 1100 Balance 1000 1100 Intake: Oral 1650 2200 Output: Urine 650 1100 Other: Voiding Method Urinal Urinal External Catheter External Catheter # Voids 3 5 # Bowel Movements 1 - Exam In general patient is alert and oriented x 3 in no distress HEENT head normocephalic and atraumatic Neck is supple no JVD no goiter no lymphadenopathy no carotid bruit Chest examination is clear to auscultation no crackles no wheezing Cardiac exam reveals regular heart sounds S1 and S2 no gallops no murmurs Abdomen is soft nontender no organomegaly with normal bowel sounds Extremity exam reveals no edema no cyanosis or clubbing, patient has protective boots on both feet Neurological examination reveals generalized weakness no gross focal deficits - Labs CBC & Chem 7: 07/08/24 02:46 07/08/24 02:46 Labs: Abnormal Lab Results - Last 24 Hours (Table) 07/08/24 07/08/24 07/08/24 Range/Units 02:46 02:46 11:04 WBC 14.43 H (4.50-10.00) X 10*3/uL RBC 3.35 L (4.40-5.60) X 10*6/uL Hgb 9.8 L (13.0-17.0) g/dL Hct 31.3 L (39.6-50.0) % MCHC 31.3 L (32.0-37.0) g/dL MPV 9.0 L (9.5-12.2) FL Immature Gran # 0.13 H (0.00-0.04) X 10*3/uL Neutrophils # 12.24 H (1.80-7.70) X 10*3/uL BUN/Creatinine Ratio 23.44 H (12.00-20.00) Ratio POC Glucose (mg/dL) 203 H (70-110) mg/dL Calcium 8.6 L (8.7-10.3) mg/dL AST 44 H (14-35) U/L ALT 96 H (10-49) U/L Alkaline Phosphatase 162 H (41-126) U/L Total Protein 5.6 L (6.2-8.2) g/dL Albumin 2.6 L (3.8-4.9) g/dL Albumin/Globulin Ratio 0.87 L (1.60-3.17) Ratio 07/08/24 07/08/24 07/09/24 Range/Units 16:37 19:57 06:23 WBC (4.50-10.00) X 10*3/uL RBC (4.40-5.60) X 10*6/uL Hgb (13.0-17.0) g/dL Hct (39.6-50.0) % MCHC (32.0-37.0) g/dL MPV (9.5-12.2) FL Immature Gran # (0.00-0.04) X 10*3/uL Neutrophils # (1.80-7.70) X 10*3/uL BUN/Creatinine Ratio (12.00-20.00) Ratio POC Glucose (mg/dL) 186 H 191 H 143 H (70-110) mg/dL Calcium (8.7-10.3) mg/dL AST (14-35) U/L ALT (10-49) U/L Alkaline Phosphatase (41-126) U/L Total Protein (6.2-8.2) g/dL Albumin (3.8-4.9) g/dL Albumin/Globulin Ratio (1.60-3.17) Ratio Microbiology - Last 24 Hours (Table) 07/07/24 14:23 Blood Culture - Preliminary Blood 07/07/24 13:12 Urine Culture - Preliminary Urine,Voided Presumptive Staph aureus Assessment and Plan Plan: Urinary tract infection Multiple antibiotic allergies Pain in the left testicle Underlying history of hypertension Underlying history of hyperlipidemia Underlying history of hyperthyroidism Underlying history of diabetes mellitus Underlying history of atrial fibrillation Underlying history of chronic systolic congestive heart failure without exacerbation at this time Underlying history of pulmonary hypertension with enlarged right ventricle Underlying history of physical debility patient is wheelchair and bedbound At this time patient was seen and examined Home medications reviewed and reordered Patient wishes to be DNR order was entered Infectious disease consultation and urology consultation requested For DVT prophylaxis will continue with Darin Will follow closely during this admission
--- NOTE | 2024-07-09 09:47 | P.PN ---
Subjective Progress Note Date: 07/08/24 Principal diagnosis: Reason for follow-up is UTI Patient is a 73-year-old male with a past medical history significant for hypertension hyperlipidemia prostate disorder sleep apnea COPD heart failure has been sent to the hospital for evaluation of testicular pain and a UTI that apparently was diagnosed about a week ago and did not respond to outpatient oral Cipro Levaquin therapy. On today's evaluation that is 07/08/2024, patient did not have any fever and denies any chills, patient is breathing comfortably on room air, patient with no chest pain or cough patient did not have any abdominal pain nausea vomiting or any loose stools, still complains some discomfort to the testicular area. Patient white count is 14.23 creatinine 0.9, urine cultures currently pending blood cultures are pending Objective - Vital Signs Vital signs: Vital Signs Temp 98.0 F 07/08/24 07:11 Pulse 58 L 07/08/24 07:11 Resp 16 07/08/24 07:11 BP 118/67 07/08/24 07:11 Pulse Ox 97 07/08/24 07:11 FiO2 Intake & Output 07/07/24 07/08/24 07/08/24 18:59 06:59 18:59 Output Total 950 Balance -950 Weight 92.533 kg Output: Urine 950 Other: Voiding Method Urinal Urinal External Catheter External Catheter # Voids 1 # Bowel Movements 1 - Exam GENERAL DESCRIPTION: An elderly male lying in bed in no distress RESPIRATORY SYSTEM: Unlabored breathing , decreased breath sounds at bases HEART: S1 S2 regular rate and rhythm , ABDOMEN: Soft , no tenderness EXTREMITIES: No edema feet - Labs CBC & Chem 7: 07/08/24 02:46 07/08/24 02:46 Labs: Abnormal Lab Results - Last 24 Hours (Table) 07/07/24 07/07/24 07/07/24 Range/Units 10:43 13:12 21:48 WBC (4.50-10.00) X 10*3/uL RBC (4.40-5.60) X 10*6/uL Hgb (13.0-17.0) g/dL Hct (39.6-50.0) % MCHC (32.0-37.0) g/dL MPV (9.5-12.2) FL Immature Gran # (0.00-0.04) X 10*3/uL Neutrophils # (1.80-7.70) X 10*3/uL BUN/Creatinine Ratio (12.00-20.00) Ratio POC Glucose (mg/dL) 191 H (70-110) mg/dL Hemoglobin A1c 8.4 H (<=6.0) % Calcium (8.7-10.3) mg/dL AST (14-35) U/L ALT (10-49) U/L Alkaline Phosphatase (41-126) U/L Total Protein (6.2-8.2) g/dL Albumin (3.8-4.9) g/dL Albumin/Globulin Ratio (1.60-3.17) Ratio Urine Protein Trace H (Negative) Urine Glucose (UA) 4+ H (Negative) Urine Blood Small H (Negative) Ur Leukocyte Esterase Large H (Negative) Urine RBC 16 H (0-5) /hpf Urine WBC >182 H (0-5) /hpf Urine WBC Clumps Few H (None) /hpf 07/08/24 07/08/24 07/08/24 Range/Units 02:46 02:46 06:37 WBC 14.43 H (4.50-10.00) X 10*3/uL RBC 3.35 L (4.40-5.60) X 10*6/uL Hgb 9.8 L (13.0-17.0) g/dL Hct 31.3 L (39.6-50.0) % MCHC 31.3 L (32.0-37.0) g/dL MPV 9.0 L (9.5-12.2) FL Immature Gran # 0.13 H (0.00-0.04) X 10*3/uL Neutrophils # 12.24 H (1.80-7.70) X 10*3/uL BUN/Creatinine Ratio 23.44 H (12.00-20.00) Ratio POC Glucose (mg/dL) 69 L (70-110) mg/dL Hemoglobin A1c (<=6.0) % Calcium 8.6 L (8.7-10.3) mg/dL AST 44 H (14-35) U/L ALT 96 H (10-49) U/L Alkaline Phosphatase 162 H (41-126) U/L Total Protein 5.6 L (6.2-8.2) g/dL Albumin 2.6 L (3.8-4.9) g/dL Albumin/Globulin Ratio 0.87 L (1.60-3.17) Ratio Urine Protein (Negative) Urine Glucose (UA) (Negative) Urine Blood (Negative) Ur Leukocyte Esterase (Negative) Urine RBC (0-5) /hpf Urine WBC (0-5) /hpf Urine WBC Clumps (None) /hpf 07/08/24 Range/Units 11:04 WBC (4.50-10.00) X 10*3/uL RBC (4.40-5.60) X 10*6/uL Hgb (13.0-17.0) g/dL Hct (39.6-50.0) % MCHC (32.0-37.0) g/dL MPV (9.5-12.2) FL Immature Gran # (0.00-0.04) X 10*3/uL Neutrophils # (1.80-7.70) X 10*3/uL BUN/Creatinine Ratio (12.00-20.00) Ratio POC Glucose (mg/dL) 203 H (70-110) mg/dL Hemoglobin A1c (<=6.0) % Calcium (8.7-10.3) mg/dL AST (14-35) U/L ALT (10-49) U/L Alkaline Phosphatase (41-126) U/L Total Protein (6.2-8.2) g/dL Albumin (3.8-4.9) g/dL Albumin/Globulin Ratio (1.60-3.17) Ratio Urine Protein (Negative) Urine Glucose (UA) (Negative) Urine Blood (Negative) Ur Leukocyte Esterase (Negative) Urine RBC (0-5) /hpf Urine WBC (0-5) /hpf Urine WBC Clumps (None) /hpf Assessment and Plan (1) Failure of outpatient treatment Current Visit: Yes Status: Acute Code(s): Z78.9 - OTHER SPECIFIED HEALTH STATUS SNOMED Code(s): 157927646 (2) UTI (urinary tract infection) Current Visit: Yes Status: Acute Code(s): N39.0 - URINARY TRACT INFECTION, SITE NOT SPECIFIED SNOMED Code(s): 67459377 (3) Leukocytosis Current Visit: Yes Status: Acute Code(s): D72.829 - ELEVATED WHITE BLOOD CELL COUNT, UNSPECIFIED SNOMED Code(s): 919563547 (4) MRSA (methicillin resistant staph aureus) culture positive Current Visit: Yes Status: Acute Code(s): Z22.322 - CARRIER OR SUSPECTED CARRIER OF METHICILLIN RESIS STAPH SNOMED Code(s): 099098178 (5) Penicillin allergy Current Visit: No Status: Acute Code(s): Z88.0 - ALLERGY STATUS TO PENICILLIN SNOMED Code(s): 36825421 Plan: 1patient is in the hospital with burning painful urination as well as suprapubic pain testicular swelling and pain in this patient who did have urine culture done on 07/03/2024 that was positive for ESBL Klebsiella and MRSA failing outpatient oral Cipro and Levaquin therapy 2-leukocytosis likely due to complicated UTI 3-penicillin allergy that will limit number of antibiotics safe to use 4patient currently on vancomycin pharmacy to dose target trough of 15 and Invanz while waiting for repeat culture to finalize, we will add nystatin powder to the scrotal area twice a day Dictation was produced using [employer] dictation software. please excuse any grammatical, word or spelling errors. Time with Patient: Less than 30
[2024-07-09 11:00] LABS: African American GFR (CKD) >90 (>60 ml/min/1.73 sqM); Non-African American GFR(CKD) 84 (>60 ml/min/1.73 sqM)
[2024-07-09] MEDS: VANCOMYCIN TROUGH DUE 1 EACH MISC MISCELLANE ONE (11:31)
[2024-07-09 12:04] LABS: Glucose,Whole Blood 133 mg/dL (70-110)
--- NOTE | 2024-07-09 13:05 | P.PN ---
Subjective Progress Note Date: 07/09/24 Principal diagnosis: UTI, Left Orchitis The patient is voiding spontaneously. He reports dysuria. He experienced significant urinary frequency yesterday, which has resolved. He states that his left orchialgia is slightly improved. Objective - Vital Signs Vital signs: Vital Signs Temp 97.5 F L 07/09/24 07:44 Pulse 57 L 07/09/24 07:44 Resp 17 07/09/24 07:44 BP 122/68 07/09/24 07:44 Pulse Ox 96 07/09/24 07:44 FiO2 Intake & Output 07/08/24 07/09/24 07/09/24 18:59 06:59 18:59 Intake Total 1650 2200 Output Total 650 1100 Balance 1000 1100 Intake: Oral 1650 2200 Output: Urine 650 1100 Other: Voiding Method Urinal Urinal Diaper External Catheter External Catheter Incontinent External Catheter # Voids 3 5 # Bowel Movements 1 - Constitutional General appearance: Present: average body habitus, cooperative, no acute distress - Genitourinary Genitourinary Comment(s): Normal phallus, normal urethral meatus. There is mild scrotal swelling. The right testicle is palpably normal. The left testicle is tender and enlarged, consistent with epididymo-orchitis. The tenderness may be somewhat reduced. There is no drainage or fluctuance. - Psychiatric Psychiatric: Present: A&O x's 3 - Labs CBC & Chem 7: 07/08/24 02:46 07/09/24 10:28 Labs: Abnormal Lab Results - Last 24 Hours (Table) 07/08/24 07/08/24 07/08/24 Range/Units 02:46 11:04 16:37 BUN/Creatinine Ratio 23.44 H (12.00-20.00) Ratio POC Glucose (mg/dL) 203 H 186 H (70-110) mg/dL Calcium 8.6 L (8.7-10.3) mg/dL AST 44 H (14-35) U/L ALT 96 H (10-49) U/L Alkaline Phosphatase 162 H (41-126) U/L Total Protein 5.6 L (6.2-8.2) g/dL Albumin 2.6 L (3.8-4.9) g/dL Albumin/Globulin Ratio 0.87 L (1.60-3.17) Ratio 07/08/24 07/09/24 Range/Units 19:57 06:23 BUN/Creatinine Ratio (12.00-20.00) Ratio POC Glucose (mg/dL) 191 H 143 H (70-110) mg/dL Calcium (8.7-10.3) mg/dL AST (14-35) U/L ALT (10-49) U/L Alkaline Phosphatase (41-126) U/L Total Protein (6.2-8.2) g/dL Albumin (3.8-4.9) g/dL Albumin/Globulin Ratio (1.60-3.17) Ratio Microbiology - Last 24 Hours (Table) 07/07/24 14:23 Blood Culture - Preliminary Blood 07/07/24 13:12 Urine Culture - Preliminary Urine,Voided Presumptive Staph aureus Assessment and Plan (1) UTI (urinary tract infection) Current Visit: Yes Status: Acute Code(s): N39.0 - URINARY TRACT INFECTION, SITE NOT SPECIFIED SNOMED Code(s): 42093741 (2) Orchitis of left testicle Current Visit: Yes Status: Acute Code(s): N45.2 - ORCHITIS SNOMED Code(s): 862265501 Plan: The patient is receiving ertapenem and vancomycin to treat the 2 resistant organisms found on the recent blood culture. He will continue to receive tamsulosin. Bladder scan has not been done, and I have requested it be done today to assess bladder emptying. I again explained to the patient that with proper antibiotic therapy, I would anticipate resolution of his testicular pain in 2 to 3 days, though the swelling will take several weeks to resolve.
--- NOTE | 2024-07-09 15:06 | P.PN ---
Subjective Progress Note Date: 07/09/24 Principal diagnosis: Reason for follow-up is UTI Patient is a 73-year-old male with a past medical history significant for hypertension hyperlipidemia prostate disorder sleep apnea COPD heart failure has been sent to the hospital for evaluation of testicular pain and a UTI that apparently was diagnosed about a week ago and did not respond to outpatient oral Cipro Levaquin therapy. On today's evaluation that is 07/09/2024, Patient is afebrile patient is currently on room air and denies having any shortness of breath, the patient denies any chest pain or cough, the patient denies any nausea vomiting did not have any abdominal pain and no diarrhea patient mention pain to the scrotal area has decreased in intensity. Patient did have a creatinine 0.89 Vanco trough is 19.1 culture growing presumptive Staph aureus blood culture have been negative Objective - Vital Signs Vital signs: Vital Signs Temp 98.6 F 07/09/24 00:30 Pulse 52 L 07/09/24 00:30 Resp 17 07/09/24 00:30 BP 132/57 07/09/24 00:30 Pulse Ox 95 07/09/24 00:30 FiO2 Intake & Output 07/08/24 07/09/24 07/09/24 18:59 06:59 18:59 Intake Total 1650 2200 Output Total 650 1100 Balance 1000 1100 Intake: Oral 1650 2200 Output: Urine 650 1100 Other: Voiding Method Urinal Urinal Diaper External Catheter External Catheter Incontinent External Catheter # Voids 3 5 # Bowel Movements 1 - Exam GENERAL DESCRIPTION: An elderly male lying in bed in no distress RESPIRATORY SYSTEM: Unlabored breathing , decreased breath sounds at bases HEART: S1 S2 regular rate and rhythm , ABDOMEN: Soft , no tenderness EXTREMITIES: No edema feet - Labs CBC & Chem 7: 07/08/24 02:46 07/09/24 10:28 Labs: Abnormal Lab Results - Last 24 Hours (Table) 07/08/24 07/08/24 07/08/24 Range/Units 02:46 11:04 16:37 BUN/Creatinine Ratio 23.44 H (12.00-20.00) Ratio POC Glucose (mg/dL) 203 H 186 H (70-110) mg/dL Calcium 8.6 L (8.7-10.3) mg/dL AST 44 H (14-35) U/L ALT 96 H (10-49) U/L Alkaline Phosphatase 162 H (41-126) U/L Total Protein 5.6 L (6.2-8.2) g/dL Albumin 2.6 L (3.8-4.9) g/dL Albumin/Globulin Ratio 0.87 L (1.60-3.17) Ratio 07/08/24 07/09/24 Range/Units 19:57 06:23 BUN/Creatinine Ratio (12.00-20.00) Ratio POC Glucose (mg/dL) 191 H 143 H (70-110) mg/dL Calcium (8.7-10.3) mg/dL AST (14-35) U/L ALT (10-49) U/L Alkaline Phosphatase (41-126) U/L Total Protein (6.2-8.2) g/dL Albumin (3.8-4.9) g/dL Albumin/Globulin Ratio (1.60-3.17) Ratio Microbiology - Last 24 Hours (Table) 07/07/24 14:23 Blood Culture - Preliminary Blood 07/07/24 13:12 Urine Culture - Preliminary Urine,Voided Presumptive Staph aureus Assessment and Plan (1) Failure of outpatient treatment Current Visit: Yes Status: Acute Code(s): Z78.9 - OTHER SPECIFIED HEALTH STATUS SNOMED Code(s): 010127523 (2) UTI (urinary tract infection) Current Visit: Yes Status: Acute Code(s): N39.0 - URINARY TRACT INFECTION, SITE NOT SPECIFIED SNOMED Code(s): 43861921 (3) Leukocytosis Current Visit: Yes Status: Acute Code(s): D72.829 - ELEVATED WHITE BLOOD CELL COUNT, UNSPECIFIED SNOMED Code(s): 844958041 (4) MRSA (methicillin resistant staph aureus) culture positive Current Visit: Yes Status: Acute Code(s): Z22.322 - CARRIER OR SUSPECTED CARRIER OF METHICILLIN RESIS STAPH SNOMED Code(s): 911989832 (5) Penicillin allergy Current Visit: No Status: Acute Code(s): Z88.0 - ALLERGY STATUS TO PENICILLIN SNOMED Code(s): 38749650 Plan: 1patient is in the hospital with burning painful urination as well as suprapubic pain testicular swelling and pain in this patient who did have urine culture done on 07/03/2024 that was positive for ESBL Klebsiella and MRSA failing outpatient oral Cipro and Levaquin therapy 2-leukocytosis likely due to complicated UTI 3-penicillin allergy that will limit number of antibiotics safe to use 4patient urine is currently growing present Staph aureus sensitivities pending continue vancomycin and Invanz if no gram-negative Invanz will be discontinued Dictation was produced using [employer] dictation software. please excuse any grammatical, word or spelling errors. Time with Patient: Less than 30
[2024-07-09 17:02] LABS: Glucose,Whole Blood 171 mg/dL (70-110)
[2024-07-09 21:07] LABS: Glucose,Whole Blood 204 mg/dL (70-110)
[2024-07-10] MEDS: VANCOMYCIN 1,250 MG in SODIUM CHLORIDE 0.9% 250 ML IVPB SCH (01:32)
[2024-07-10 06:52] LABS: Glucose,Whole Blood 114 mg/dL (70-110)
[2024-07-10 08:45] LABS: ALT 76 U/L (10-49); AST 30 U/L (14-35); Albumin 2.6 g/dL (3.8-4.9); Albumin/Globulin Ratio 0.87 Ratio (1.60-3.17); Alkaline Phosphatase 159 U/L (41-126); BUN/Creat Ratio 20.33 Ratio (12.00-20.00); Blood Urea Nitrogen 18.3 mg/dL (9.0-27.0); Calcium 8.5 mg/dL (8.7-10.3); Chloride 102 mmol/L (96-109); Glucose 135 mg/dL (70-110); Potassium 4.2 mmol/L (3.5-5.5); Sodium 137 mmol/L (135-145); Total Bilirubin 0.4 mg/dL (0.3-1.2); Total Protein 5.6 g/dL (6.2-8.2)
[2024-07-10 10:06] LABS: Basophils # (A) 0.05 X 10*3/uL (0.00-0.10); Basophils % (A) 0.5 %; HCT 32.7 % (39.6-50.0); HGB 10.5 g/dL (13.0-17.0); Lymphocytes # (A) 1.49 X 10*3/uL (0.90-5.00); Lymphocytes % (A) 15.1 %; MCH 29.7 pg (27.0-32.0); MCHC 32.1 g/dL (32.0-37.0); MCV 92.4 FL (80.0-97.0); Mean Platelet Volume 8.8 FL (9.5-12.2); Monocytes # (A) 0.73 X 10*3/uL (0.20-1.00); Monocytes % (A) 7.4 %; NRBC Per 100 WBC 0 X 10*3/uL (0.00-0.01); Neutrophils # (A) 7.26 X 10*3/uL (1.80-7.70); Neutrophils % (A) 73.3 %; Platelet Count 386 X 10*3/uL (140-440); RBC 3.54 X 10*6/uL (4.40-5.60); RDW 14.2 % (11.5-14.5)
[2024-07-10] MEDS: PSYLLIUM HUSK 100% 6 GM PACKET PO SCH (10:22)
[2024-07-10 11:35] LABS: Glucose,Whole Blood 153 mg/dL (70-110)
[2024-07-10 16:28] LABS: Glucose,Whole Blood 176 mg/dL (70-110)
--- NOTE | 2024-07-10 17:28 | P.PN ---
Subjective Progress Note Date: 07/10/24 Francisco Cao, is a 73-year-old male resident of [facility] who was transferred to [facility] emergency room due to urinary tract infection with multiple resistant organisms, and pain in the left testicle. He was evaluated in the emergency room vital examination on presentation rev ealed a temperature of 97.5 pulse 87 respiration 17 blood pressure 137/71 pulse ox 99% on room air Laboratory data revealed a white blood count of 18.9 hemoglobin 10.8 platelet count 352 sodium 134 BUN 23 creatinine 0.76 hemoglobin A1c 8.4 albumin is low at 2.7 Urine culture from the residential was positive for Klebsiella pneumonia ESBL MDRO and methicillin-resistant Staphylococcus aureus Testing in the emergency room : Patient had an ultrasound of the scrotum that revealed soft tissue density with vascularity between the testicles. Patient was admitted to medical floor for further evaluation and treatment Past medical history is significant for history of hypertension, history of hyperlipidemia, history of hyperthyroidism, history of diabetes mellitus, history of atrial fibrillation, history of chronic systolic congestive heart failure, history of physical debility, history of recurrent urinary tract infections On review of systems patient is alert and oriented x 3 in no apparent distress there is no fever or chills no headache or dizziness no chest pain no shortness of breath no cough no nausea or vomiting no abdominal pain no diarrhea no blood in the stools no burning with urination no he has frequency with urination, and pain in the left testicle area. Patient has generalized weakness with inability to stand or walk, he is able to pivot from bed to wheelchair with help. On 07/08/2024 patient was seen and examined on the medical floor he is alert and oriented x 3 in no apparent distress he reports some improvement in the pain in the left testicle area otherwise he denies any complaints at this time there is no fever or chills no headache or dizziness no chest pain no shortness of breath no cough no nausea or vomiting no abdominal pain no diarrhea and no urinary sy mptoms. Vital examination reveals a temperature of 98 pulse 58 respiration 16 blood pressure 118/67 pulse ox 97% on room air white blood count is 14.43 hemoglobin 9.8 platelet count 348 On 07/09/2024 patient was seen and examined on the medical floor he is alert and oriented x 3 in no apparent distress he reports improvement in the pain in the left testicle area otherwise he denies any complaints at this time there is no fever or chills no headache or dizziness no chest pain no shortness of breath no cough no nausea or vomiting no abdominal pain no diarrhea and no urinary symptoms. Urology consult reviewed continue with current IV antibiotic will recheck labs and follow in a.m.. On 07/10/2024 patient was seen and examined on the medical floor he is alert and oriented x 3 in no apparent distress there is no fever or chills no headache or dizziness no chest pain no shortness of breath no cough no nausea or vomiting no abdominal pain no diarrhea, he is still complaining of burning with urination and pain in the left testicle. Patient states that he was supposed to have a cardiac catheterization as outpatient, which was canceled due to infected cyst in the sacral area, he is asking to see a gate supervisor to assess if cardiac catheterization can be rescheduled soon. Will arrange for cardiology consult Objective - Vital Signs Vital signs: Vital Signs Temp 98.7 F 07/10/24 13:49 Pulse 52 L 07/10/24 13:49 Resp 18 07/10/24 13:49 BP 140/60 07/10/24 13:49 Pulse Ox 99 07/10/24 13:49 FiO2 Intake & Output 07/09/24 07/10/24 07/10/24 18:59 06:59 18:59 Intake Total 240 Output Total 1200 200 Balance -1200 40 Intake: Oral 240 Output: Urine 900 200 Post Void Residual 300 Other: Voiding Method Diaper Urinal External Catheter Incontinent External Catheter External Catheter # Voids 2 # Bowel Movements 1 - Exam In general patient is alert and oriented x 3 in no distress HEENT head normocephalic and atraumatic Neck is supple no JVD no goiter no lymphadenopathy no carotid bruit Chest examination is clear to auscultation no crackles no wheezing Cardiac exam reveals regular heart sounds S1 and S2 no gallops no murmurs Abdomen is soft nontender no organomegaly with normal bowel sounds Extremity exam reveals no edema no cyanosis or clubbing, patient has protective boots on both feet Neurological examination reveals generalized weakness no gross focal deficits - Labs CBC & Chem 7: 07/10/24 03:36 07/10/24 03:36 Labs: Abnormal Lab Results - Last 24 Hours (Table) 07/09/24 07/10/24 07/10/24 Range/Units 20:56 03:36 03:36 RBC 3.54 L (4.40-5.60) X 10*6/uL Hgb 10.5 L (13.0-17.0) g/dL Hct 32.7 L (39.6-50.0) % MPV 8.8 L (9.5-12.2) FL Immature Gran # 0.17 H (0.00-0.04) X 10*3/uL BUN/Creatinine Ratio 20.33 H (12.00-20.00) Ratio Glucose 135 H (70-110) mg/dL POC Glucose (mg/dL) 204 H (70-110) mg/dL Calcium 8.5 L (8.7-10.3) mg/dL ALT 76 H (10-49) U/L Alkaline Phosphatase 159 H (41-126) U/L Total Protein 5.6 L (6.2-8.2) g/dL Albumin 2.6 L (3.8-4.9) g/dL Albumin/Globulin Ratio 0.87 L (1.60-3.17) Ratio 07/10/24 07/10/24 07/10/24 Range/Units 06:51 11:34 16:27 RBC (4.40-5.60) X 10*6/uL Hgb (13.0-17.0) g/dL Hct (39.6-50.0) % MPV (9.5-12.2) FL Immature Gran # (0.00-0.04) X 10*3/uL BUN/Creatinine Ratio (12.00-20.00) Ratio Glucose (70-110) mg/dL POC Glucose (mg/dL) 114 H 153 H 176 H (70-110) mg/dL Calcium (8.7-10.3) mg/dL ALT (10-49) U/L Alkaline Phosphatase (41-126) U/L Total Protein (6.2-8.2) g/dL Albumin (3.8-4.9) g/dL Albumin/Globulin Ratio (1.60-3.17) Ratio Microbiology - Last 24 Hours (Table) 07/07/24 14:23 Blood Culture Gram Stain - Preliminary Blood Blood Culture - Preliminary Molecular ID 07/07/24 13:12 Urine Culture - Final Urine,Voided Methicillin resist S. aureus Assessment and Plan Plan: Urinary tract infection Multiple antibiotic allergies Pain in the left testicle Underlying history of hypertension Underlying history of hyperlipidemia Underlying history of hyperthyroidism Underlying history of diabetes mellitus Underlying history of atrial fibrillation Underlying history of chronic systolic congestive heart failure without exacerbation at this time Underlying history of pulmonary hypertension with enlarged right ventricle Underlying history of physical debility patient is wheelchair and bedbound At this time patient was seen and examined Home medications reviewed and reordered Patient wishes to be DNR order was entered Infectious disease consultation and urology consultation requested For DVT prophylaxis will continue with Eliquis Will follow closely during this admission
[2024-07-10] MEDS ORDERED: ALBUTEROL NEBULIZED 2.5 MG/3 ML INHALATION PRN (20:24)
[2024-07-10 20:25] LABS: Glucose,Whole Blood 198 mg/dL (70-110)
[2024-07-11 04:40] LABS: African American GFR (CKD) >90 (>60 ml/min/1.73 sqM); Non-African American GFR(CKD) 81 (>60 ml/min/1.73 sqM)
[2024-07-11 06:12] LABS: Glucose,Whole Blood 164 mg/dL (70-110)
--- NOTE | 2024-07-11 08:15 | P.PN ---
Subjective Progress Note Date: 07/10/24 Principal diagnosis: Reason for follow-up is UTI Patient is a 73-year-old male with a past medical history significant for hypertension hyperlipidemia prostate disorder sleep apnea COPD heart failure has been sent to the hospital for evaluation of testicular pain and a UTI that apparently was diagnosed about a week ago and did not respond to outpatient oral Cipro Levaquin therapy. On today's evaluation that is 07/10/2024, patient has been afebrile, patient is breathing comfortably and is currently on room air, patient denies having any significant cough no chest pain, patient denies nausea vomiting or diarrhea and no abdominal pain still complains of some pain to the scrotal area potential slight improvement. Patient white count is normalized to 9.90 creatinine 0.91 blood culture positive for MRSA urine is growing MRSA as well Objective - Vital Signs Vital signs: Vital Signs Temp 98.7 F 07/10/24 13:49 Pulse 52 L 07/10/24 13:49 Resp 18 07/10/24 13:49 BP 140/60 07/10/24 13:49 Pulse Ox 99 07/10/24 13:49 FiO2 Intake & Output 07/09/24 07/10/24 07/10/24 18:59 06:59 18:59 Intake Total 240 Output Total 1200 200 Balance -1200 40 Intake: Oral 240 Output: Urine 900 200 Post Void Residual 300 Other: Voiding Method Diaper Urinal External Catheter Incontinent External Catheter External Catheter # Voids 2 # Bowel Movements 1 - Exam GENERAL DESCRIPTION: An elderly male lying in bed in no distress RESPIRATORY SYSTEM: Unlabored breathing , decreased breath sounds at bases HEART: S1 S2 regular rate and rhythm , ABDOMEN: Soft , no tenderness EXTREMITIES: No edema feet - Labs CBC & Chem 7: 07/10/24 03:36 07/11/24 04:00 Labs: Abnormal Lab Results - Last 24 Hours (Table) 07/09/24 07/09/24 07/10/24 Range/Units 17:01 20:56 03:36 RBC 3.54 L (4.40-5.60) X 10*6/uL Hgb 10.5 L (13.0-17.0) g/dL Hct 32.7 L (39.6-50.0) % MPV 8.8 L (9.5-12.2) FL Immature Gran # 0.17 H (0.00-0.04) X 10*3/uL BUN/Creatinine Ratio (12.00-20.00) Ratio Glucose (70-110) mg/dL POC Glucose (mg/dL) 171 H 204 H (70-110) mg/dL Calcium (8.7-10.3) mg/dL ALT (10-49) U/L Alkaline Phosphatase (41-126) U/L Total Protein (6.2-8.2) g/dL Albumin (3.8-4.9) g/dL Albumin/Globulin Ratio (1.60-3.17) Ratio 07/10/24 07/10/24 07/10/24 Range/Units 03:36 06:51 11:34 RBC (4.40-5.60) X 10*6/uL Hgb (13.0-17.0) g/dL Hct (39.6-50.0) % MPV (9.5-12.2) FL Immature Gran # (0.00-0.04) X 10*3/uL BUN/Creatinine Ratio 20.33 H (12.00-20.00) Ratio Glucose 135 H (70-110) mg/dL POC Glucose (mg/dL) 114 H 153 H (70-110) mg/dL Calcium 8.5 L (8.7-10.3) mg/dL ALT 76 H (10-49) U/L Alkaline Phosphatase 159 H (41-126) U/L Total Protein 5.6 L (6.2-8.2) g/dL Albumin 2.6 L (3.8-4.9) g/dL Albumin/Globulin Ratio 0.87 L (1.60-3.17) Ratio 07/10/24 Range/Units 16:27 RBC (4.40-5.60) X 10*6/uL Hgb (13.0-17.0) g/dL Hct (39.6-50.0) % MPV (9.5-12.2) FL Immature Gran # (0.00-0.04) X 10*3/uL BUN/Creatinine Ratio (12.00-20.00) Ratio Glucose (70-110) mg/dL POC Glucose (mg/dL) 176 H (70-110) mg/dL Calcium (8.7-10.3) mg/dL ALT (10-49) U/L Alkaline Phosphatase (41-126) U/L Total Protein (6.2-8.2) g/dL Albumin (3.8-4.9) g/dL Albumin/Globulin Ratio (1.60-3.17) Ratio Microbiology - Last 24 Hours (Table) 07/07/24 14:23 Blood Culture Gram Stain - Preliminary Blood Blood Culture - Preliminary Molecular ID 07/07/24 13:12 Urine Culture - Final Urine,Voided Methicillin resist S. aureus Assessment and Plan (1) Failure of outpatient treatment Current Visit: Yes Status: Acute Code(s): Z78.9 - OTHER SPECIFIED HEALTH STATUS SNOMED Code(s): 265235478 (2) UTI (urinary tract infection) Current Visit: Yes Status: Acute Code(s): N39.0 - URINARY TRACT INFECTION, SITE NOT SPECIFIED SNOMED Code(s): 71973814 (3) Leukocytosis Current Visit: Yes Status: Acute Code(s): D72.829 - ELEVATED WHITE BLOOD CELL COUNT, UNSPECIFIED SNOMED Code(s): 636994096 (4) MRSA (methicillin resistant staph aureus) culture positive Current Visit: Yes Status: Acute Code(s): Z22.322 - CARRIER OR SUSPECTED CARRIER OF METHICILLIN RESIS STAPH SNOMED Code(s): 521372973 (5) Penicillin allergy Current Visit: No Status: Acute Code(s): Z88.0 - ALLERGY STATUS TO PENICILLIN SNOMED Code(s): 75968000 (6) MRSA bacteremia Current Visit: Yes Status: Acute Code(s): R78.81 - BACTEREMIA; B95.62 - METHICILLIN RESIS STAPH INFCT CAUSING DISEASES CL[facility]SD [facility] SNOMED Code(s): 51770819407045499 Plan: 1patient is in the hospital with burning painful urination as well as supra pubic pain testicular swelling and pain in this patient who did have urine culture done on 07/03/2024 that was positive for ESBL Klebsiella and MRSA failing outpatient oral Cipro and Levaquin therapy 2-leukocytosis likely due to complicated UTI 3-penicillin allergy that will limit number of antibiotics safe to use 4patient urine is currently growing MRSA in the blood culture also positive for MRSA 5blood cultures will be repeated document clearance of bacteremia patient will be treated with the vancomycin discontinue Invanz Dictation was produced using [employer] dictation software. please excuse any grammatical, word or spelling errors. Time with Patient: Less than 30
--- NOTE | 2024-07-11 09:45 | P.PN ---
Subjective Progress Note Date: 07/11/24 Francisco Cao, is a 73-year-old male resident of [facility] who was transferred to [facility] emergency room due to urinary tract infection with multiple resistant organisms, and pain in the left testicle. He was evaluated in the emergency room vital examination on presentation rev ealed a temperature of 97.5 pulse 87 respiration 17 blood pressure 137/71 pulse ox 99% on room air Laboratory data revealed a white blood count of 18.9 hemoglobin 10.8 platelet count 352 sodium 134 BUN 23 creatinine 0.76 hemoglobin A1c 8.4 albumin is low at 2.7 [facility] for Klebsiella pneumonia ESBL MDRO and methicillin-resistant Staphylococcus aureus Testing in the emergency room : Patient had an ultrasound of the scrotum that revealed soft tissue density with vascularity between the testicles. Patient was admitted to medical floor for further evaluation and treatment Past medical history is significant for history of hypertension, history of hyperlipidemia, history of hyperthyroidism, history of diabetes mellitus, history of atrial fibrillation, history of chronic systolic congestive heart failure, history of physical debility, history of recurrent urinary tract infections On review of systems patient is alert and oriented x 3 in no apparent distress there is no fever or chills no headache or dizziness no chest pain no shortness of breath no cough no nausea or vomiting no abdominal pain no diarrhea no blood in the stools no burning with urination no he has frequency with urination, and pain in the left testicle area. Patient has generalized weakness with inability to stand or walk, he is able to pivot from bed to wheelchair with help. On 07/08/2024 patient was seen and examined on the medical floor he is alert and oriented x 3 in no apparent distress he reports some improvement in the pain in the left testicle area otherwise he denies any complaints at this time there is no fever or chills no headache or dizziness no chest pain no shortness of breath no cough no nausea or vomiting no abdominal pain no diarrhea and no urinary sy mptoms. Vital examination reveals a temperature of 98 pulse 58 respiration 16 blood pressure 118/67 pulse ox 97% on room air white blood count is 14.43 hemoglobin 9.8 platelet count 348 On 07/09/2024 patient was seen and examined on the medical floor he is alert and oriented x 3 in no apparent distress he reports improvement in the pain in the left testicle area otherwise he denies any complaints at this time there is no fever or chills no headache or dizziness no chest pain no shortness of breath no cough no nausea or vomiting no abdominal pain no diarrhea and no urinary symptoms. Urology consult reviewed continue with current IV antibiotic will recheck labs and follow in a.m.. On 07/10/2024 patient was seen and examined on the medical floor he is alert and oriented x 3 in no apparent distress there is no fever or chills no headache or dizziness no chest pain no shortness of breath no cough no nausea or vomiting no abdominal pain no diarrhea, he is still complaining of burning with urination and pain in the left testicle. Patient states that he was supposed to have a cardiac catheterization as outpatient, which was canceled due to infected cyst in the sacral area, he is asking to see a route returner to assess if cardiac catheterization can be rescheduled soon. Will arrange for cardiology consult On 07/11/2024 patient is alert and oriented x 3. Patient reports improvement wi th discomfort. Cardiology services have been consulted awaiting further input. Patient remains on IV vancomycin. Current vital signs temp 98.2, heart rate 54, respiratory rate 18, blood pressure 115/71 with a pulse ox of 97% on room air. Patient denies chest pain or shortness of breath. Patient denies nausea vomiting or diarrhea. Patient denies any urinary burning or frequency Objective - Vital Signs Vital signs: Vital Signs Temp 97.6 F 07/11/24 01:52 Pulse 52 L 07/11/24 02:42 Resp 17 07/11/24 01:52 BP 121/68 07/11/24 01:52 Pulse Ox 95 07/11/24 01:52 FiO2 Intake & Output 07/10/24 07/10/24 07/11/24 06:59 18:59 06:59 Intake Total 240 Output Total 200 1200 1600 Balance 40 -1200 -1600 Intake: Oral 240 Output: Urine 200 1200 1600 Other: Voiding Method Urinal External Catheter External Catheter External Catheter # Voids 2 1 # Bowel Movements 1 - Exam In general patient is alert and oriented x 3 in no distress HEENT head normocephalic and atraumatic Neck is supple no JVD no goiter no lymphadenopathy no carotid bruit Chest examination is clear to auscultation no crackles no wheezing Cardiac exam reveals regular heart sounds S1 and S2 no gallops no murmurs Abdomen is soft nontender no organomegaly with normal bowel sounds Extremity exam reveals no edema no cyanosis or clubbing, patient has protective boots on both feet Neurological examination reveals generalized weakness no gross focal deficits - Labs CBC & Chem 7: 07/10/24 03:36 07/11/24 04:00 Labs: Abnormal Lab Results - Last 24 Hours (Table) 07/10/24 07/10/24 07/10/24 Range/Units 03:36 03:36 11:34 RBC 3.54 L (4.40-5.60) X 10*6/uL Hgb 10.5 L (13.0-17.0) g/dL Hct 32.7 L (39.6-50.0) % MPV 8.8 L (9.5-12.2) FL Immature Gran # 0.17 H (0.00-0.04) X 10*3/uL BUN/Creatinine Ratio 20.33 H (12.00-20.00) Ratio Glucose 135 H (70-110) mg/dL POC Glucose (mg/dL) 153 H (70-110) mg/dL Calcium 8.5 L (8.7-10.3) mg/dL ALT 76 H (10-49) U/L Alkaline Phosphatase 159 H (41-126) U/L Total Protein 5.6 L (6.2-8.2) g/dL Albumin 2.6 L (3.8-4.9) g/dL Albumin/Globulin Ratio 0.87 L (1.60-3.17) Ratio 07/10/24 07/10/24 07/11/24 Range/Units 16:27 20:22 06:10 RBC (4.40-5.60) X 10*6/uL Hgb (13.0-17.0) g/dL Hct (39.6-50.0) % MPV (9.5-12.2) FL Immature Gran # (0.00-0.04) X 10*3/uL BUN/Creatinine Ratio (12.00-20.00) Ratio Glucose (70-110) mg/dL POC Glucose (mg/dL) 176 H 198 H 164 H (70-110) mg/dL Calcium (8.7-10.3) mg/dL ALT (10-49) U/L Alkaline Phosphatase (41-126) U/L Total Protein (6.2-8.2) g/dL Albumin (3.8-4.9) g/dL Albumin/Globulin Ratio (1.60-3.17) Ratio Microbiology - Last 24 Hours (Table) 07/07/24 14:23 Blood Culture Gram Stain - Preliminary Blood Blood Culture - Preliminary Presumptive MRSA Molecular ID Assessment and Plan Plan: Urinary tract infection Multiple antibiotic allergies Pain in the left testicle Underlying history of hypertension Underlying history of hyperlipidemia Underlying history of hyperthyroidism Underlying history of diabetes mellitus Underlying history of atrial fibrillation Underlying history of chronic systolic congestive heart failure without exacerbation at this time Underlying history of pulmonary hypertension with enlarged right ventricle Underlying history of physical debility patient is wheelchair and bedbound At this time patient was seen and examined Home medications reviewed and reordered Patient wishes to be DNR order was entered Infectious disease consultation and urology consultation requested For DVT prophylaxis will continue with Eliquis Will follow closely during this admission
[2024-07-11 11:39] LABS: Glucose,Whole Blood 279 mg/dL (70-110)
--- NOTE | 2024-07-11 11:49 | P.CRDCN ---
History of Present Illness History of present illness: HISTORY OF PRESENT ILLNESS: This is a 73-year-old male with a past medical history significant for orthostatic hypotension, atrial fibrillation, s/p cardioversion, and cardiomyopathy with ejection fraction 35%, and coronary artery calcifications, hyperlipidemia, diabetes, and COPD. Patient follows in the office with Dr. Coreas. We have been asked to see the patient in consultation for CAD. Patient examined at the bedside. Patient is admitted to the hospital secondary to urinary tract infection. Urine culture is positive for MRSA. Additionally blood cultures are positive for MRSA. He has been followed by infectious disease. Patient currently denies chest pain or pressure. He denies shortness of breath. Patient saw Dr. Coreas back in February 2024. He was scheduled for outpatient cardiac catheterization but due to infection, it was cancelled. DIAGNOSTICS: - EKG reveals sinus bradycardia first-degree AV block. - Laboratory data: WBC 9.90. Hemoglobin 10.5. Platelet count 386. Sodium 137. Potassium 4.2. BUN 18.3. Creatinine 0.9. - Current home cardiac medications include aspirin 81 mg daily, Bumex 1 mg daily, Aldactone 25 mg at night, lisinopril 5 mg at night, amiodarone 200 mg twice a day, Eliquis 5 mg twice a day, metoprolol tartrate 50 mg twice a day - Most recent echocardiogram obtained in January 2024 revealed ejection fraction 35 to 40%, severe pulmonary hypertension, biatrial enlargement, mild to moderate TR - Cardiac catheterization history: Patient denies REVIEW OF SYSTEMS: At the time of my exam: CONSTITUTIONAL: Denies fever or chills. HEENT: Denies blurred vision, vision changes, or eye pain. Denies hemoptysis CARDIOVASCULAR: Denies chest pain. Denies orthopnea. Denies PND. Denies palpitations RESPIRATORY: Denies shortness of breath. GASTROINTESTINAL: Denies abdominal pain. Denies nausea or vomiting. HEMATOLOGIC: Denies bleeding disorders. GENITOURINARY: Denies any blood in urine. SKIN: Denies pruitis. Denies rash. PHYSICAL EXAM: VITAL SIGNS: Reviewed. GENERAL: Well-developed in no acute distress. HEENT: Head is normocephalic. Pupils are equal, round. Sclerae anicteric. Mucous membranes of the mouth are moist. Neck supple. No JVD or thyromegaly LUNGS: Respirations even and unlabored. Lungs essentially clear to auscultation bilaterally. HEART: Regular rate and rhythm. S1 and S2 heard. ABDOMEN: Soft. Nondistended. Nontender. EXTREMITIES: Normal range of motion. No clubbing or cyanosis. Peripheral pulses intact. No lower extremity edema NEUROLOGIC: Awake and alert. Oriented x 3. ASSESSMENT: Urinary tract infection, culture positive for MRSA Bacteremia, cultures positive for MRSA Cardiomyopathy, ejection fraction 35 to 40%, ischemic versus nonischemic Coronary artery calcifications Paroxysmal atrial fibrillation, maintaining sinus mechanism History of cardioversion Hyperlipidemia Hypertension History of orthostatic hypotension COPD PLAN: No need to repeat echocardiogram as this was performed in January 2024 Resume home cardiac medications Continue antibiotics per infectious disease Due to active infection, no plans for cardiac catheterization at this time Patient may follow-up outpatient with Dr. Coreas and reschedule his cardiac catheterization No further inpatient recommendations from a cardiac standpoint We will sign off. Please reconsult if needed. Nurse practitioner note has been reviewed by physician. Signing provider agrees with the documented findings, assessment, and plan of care documented by TANK CHARGER as a scribe. Past Medical History Past Medical History: Atrial Fibrillation, Heart Failure, COPD, Diabetes Mellitus, Eye Disorder, Hyperlipidemia, Hypertension, Prostate Disorder, Sleep Apnea/CPAP/BIPAP, Thyroid Disorder Additional Past Medical History / Comment(s): HX PVC'S. MILD COPD. ANEMIA. HX KIDNEY STONES. BPH. HAD DIABETIC RETINOPATHY TX ON EYES. HAS HAD PICC LINE IN PAST, NOW OUT. CHRONIC BACK AND KNEE PAIN, lymphedema bilateral legs History of Any Multi-Drug Resistant Organisms: MRSA Date of last positivie culture/infection: 07/07/24 MDRO Source:: urine Past Surgical History: Orthopedic Surgery Additional Past Surgical History / Comment(s): RT THYROIDECTOMY. MASS FROM TIFFANY K, FATTY TUMOR. NASAL MASS REMOVED. LASER EYES, INTRAOCULAR LENS. WOUND ON RT FOOT I&D. LEFT KNEE ARTHROSCOPY, multiple CYST REMOVED FROM TAILBONE Past Anesthesia/Blood Transfusion Reactions: Previous Problems w/ Anesthesia Additional Past Anesthesia/Blood Transfusion Reaction / Comment(s): OCC TAKES LONG TIME TO AWAKEN. Past Psychological History: No Psychological Hx Reported Smoking Status: Former smoker - Past Family History Mother Family Medical History: COPD Father Family Medical History: Diabetes Mellitus Additional Family Medical History / Comment(s): Heart failure. Medications and Allergies Home Medications Medication Instructions Recorded Confirmed Type Tamsulosin [Flomax] 0.4 mg PO BID 11/17/17 07/07/24 History Albuterol Nebulized [Ventolin 2.5 mg INHALATION RT-Q6H 02/07/24 07/07/24 History Nebulized] Apixaban [Eliquis] 5 mg PO BID 02/07/24 07/07/24 History Hydrocortisone [Cortizone-10] 1 applic TOPICAL Q24H PRN 02/07/24 07/07/24 History Loperamide HCl [Imodium A-D] 2 - 4 mg PO QID PRN MDD 8mg 02/07/24 07/07/24 History Magnesium Hydroxide [Milk of 30 ml PO Q48H PRN 02/07/24 07/07/24 History Magnesia Concentrate] Magnesium Oxide [Mag-Ox] 400 mg PO BID 02/07/24 07/07/24 History Melatonin 5 mg PO HS 02/07/24 07/07/24 History Na Phos,M-B/Na Phos,Di-Ba [Fleet 133 ml RECTAL DAILY PRN 02/07/24 07/07/24 History Adult] Pantoprazole [Protonix] 40 mg PO DAILY@0600 02/07/24 07/07/24 History Spironolactone [Aldactone] 25 mg PO HS 02/07/24 07/07/24 History Tums 750mg Chewable 750 mg PO Q8H PRN 02/07/24 07/07/24 History guaiFENesin [guaiFENesin Oral 10 ml PO Q4H PRN 02/07/24 07/07/24 History Solution] methIMAzole [Tapazole] 5 mg PO DAILY 02/07/24 03/15/24 History Aspirin 81 mg PO DAILY 02/16/24 03/15/24 History Metoprolol Tartrate [Lopressor] 50 mg PO BID 02/16/24 07/07/24 History Amiodarone [Cordarone] 200 mg PO BID tab 02/23/24 07/07/24 Rx Bumetanide [BUMEX] 1 mg PO DAILY tab 02/23/24 07/07/24 Rx Pioglitazone [Actos] 30 mg PO DAILY tab 02/23/24 07/07/24 Rx Atorvastatin Calcium 40 mg PO HS 03/15/24 07/07/24 History Cerave Pm 1 applic TOPICAL DAILY 03/15/24 07/07/24 History HYDROcodone/APAP 5-325MG [[place] 1 tab PO Q4HR PRN 03/15/24 07/07/24 History 5-325] Sennosides/Docusate Sodium [Senna 1 tab PO BID@0800,1700 03/15/24 07/07/24 History Plus 8.6-50 mg Tablet] lisinopriL [Zestril] 5 mg PO HS 03/15/24 07/07/24 History Acetaminophen [Tylenol 8 Hour] 650 mg PO Q4H PRN 07/07/24 07/07/24 History Empagliflozin [Jardiance] 10 mg PO DAILY 07/07/24 07/07/24 History INSULIN LISPRO (HumaLOG) [HumaLOG] See Protocol SQ AC-TID 07/07/24 07/07/24 History Lactose-Reduced Food [Ensure 1 can PO HS 07/07/24 07/07/24 History Original] Nystatin 100,000Unit/gm Cream 1 applic TOPICAL BID@0800,1700 07/07/24 07/07/24 History [Mycostatin Cream] Sodium Chloride [Saline Mist] 1 spray EA NOSTRIL BID PRN 07/07/24 07/07/24 History Triamcinolone 0.1% Cream [Kenalog 1 applic TOPICAL BID 07/07/24 07/07/24 History 0.1% Cream] Tums Ex 750mg 750 mg PO Q8H PRN 07/07/24 07/07/24 History Vashe Wound Therapy 1 applic TOPICAL MOWEFR 07/07/24 07/07/24 History bisacodyL [Dulcolax] 10 mg RECTAL DAILY PRN 07/07/24 07/07/24 History glipiZIDE [Glucotrol] 5 mg PO AC-TID 07/07/24 07/07/24 History polyethylene glycoL 3350 [Miralax] 17 gm PO DAILY 07/07/24 07/07/24 History Allergies Allergy/AdvReac Type Severity Reaction Status Date / Time adhesive Allergy BLISTERING Verified 07/07/24 11:34 RASH amoxicillin Allergy Rash/Hives Verified 07/07/24 11:34 Penicillins Allergy Rash/Hives Verified 07/07/24 11:34 pollen extracts Allergy RHINITIS, Verified 07/07/24 11:34 SORE THROAT Physical Exam Vitals: Vital Signs Temp Pulse Pulse Resp BP Pulse Ox 07/11/24 10:49 97.7 F 51 L 49 L 16 139/69 99 07/11/24 08:00 54 L 18 07/11/24 07:35 98.2 F 54 L 18 115/71 97 07/11/24 02:42 52 L 07/11/24 01:52 97.6 F 45 L 17 121/68 95 07/10/24 21:00 53 L 18 07/10/24 19:31 98.0 F 53 L 18 140/62 98 07/10/24 13:49 98.7 F 52 L 18 140/60 99 Intake and Output 07/10/24 07/11/24 07/11/24 22:59 06:59 14:59 Output Total 1200 1600 Balance -1200 -1600 Output: Urine 1200 1600 Other: Voiding Method External Catheter External Catheter # Voids 1 Results 07/10/24 03:36 07/11/24 04:00 Comprehensive Metabolic Panel 07/11/24 Range/Units 04:00 Creatinine 0.92 (0.66-1.25) mg/dL Current Medications Generic Name Dose Route Start Last Admin Trade Name Freq PRN Reason Stop Dose Admin Acetaminophen 650 mg 07/07/24 12:54 07/10/24 21:06 Acetaminophen Tab 325 Mg Tab PO 650 mg Q4H PRN Administration GENERAL DISCOMFORT Hydrocodone Bitart/Acetaminophen 1 each 07/07/24 12:54 Hydrocodone/Apap 5-325mg 1 Each Tab PO Q4HR PRN Pain Albuterol Sulfate 2.5 mg 07/10/24 20:24 Albuterol Nebulized 2.5 Mg/3 Ml INHALATION RT-Q4H PRN Shortness Of Breath Or Wheezing Amiodarone HCl 200 mg 07/07/24 21:00 07/11/24 09:24 Amiodarone 200 Mg Tab PO 200 mg BID PHOEBE Administration Apixaban 5 mg 07/07/24 21:00 07/11/24 09:24 Apixaban 5 Mg Tab PO 5 mg BID PHOEBE Administration Protocol Aspirin 81 mg 07/08/24 09:00 07/11/24 09:25 Aspirin 81 Mg PO Not Given DAILY [facility] Atorvastatin Calcium 40 mg 07/07/24 21:00 07/10/24 21:04 Atorvastatin 40 Mg Tab PO 40 mg HS PHOEBE Administration Bisacodyl 10 mg 07/07/24 12:54 Bisacodyl 10 Mg Supp RECTAL DAILY PRN Constipation Bumetanide 1 mg 07/08/24 09:00 07/11/24 09:24 Bumetanide 1 Mg Tab PO 1 mg DAILY PHOEBE Administration Calcium Carbonate/Glycine 750 mg 07/07/24 12:54 Calcium Carbonate 500 Mg Chewable PO Q8H PRN acid reflux Dapagliflozin 5 mg 07/08/24 09:00 07/11/24 09:24 Dapagliflozin Propanediol 5 Mg Tablet PO 5 mg DAILY [facility]OEBE Administration Glipizide 5 mg 07/07/24 17:30 07/11/24 06:23 Glipizide 5 Mg Tab PO 5 mg AC-TID PHOEBE Administration Guaifenesin 200 mg 07/07/24 12:54 Guaifenesin Syrup 100mg/5ml 200 Mg/10 Ml Cup PO Q4H PRN Cough Vancomycin HCl 1,250 mg/ 250 mls @ 125 mls/hr 07/10/24 02:00 07/11/24 02:19 Sodium Chloride IVPB 125 mls/hr Q12H [facility]OE[facility] Administration Lisinopril 5 mg 07/07/24 21:00 07/10/24 21:04 Lisinopril 5 Mg Tab PO 5 mg HS PHOEBE Administration Loperamide HCl 2 mg 07/07/24 12:54 Loperamide 2 Mg Cap PO QID PRN Diarrhea Magnesium Hydroxide 2,400 mg 07/07/24 12:54 Magnesium Hydroxide 2,400 Mg/30 Ml Cup PO Q48H PRN Constipation Magnesium Oxide 400 mg 07/07/24 21:00 07/11/24 09:24 Magnesium Oxide 400 Mg Tab PO 400 mg BID [facility] Administration Melatonin 5 mg 07/07/24 21:00 07/10/24 21:04 Melatonin 5 Mg Tablet PO 5 mg HS [facility] Administration Methimazole 5 mg 07/08/24 09:00 07/11/24 09:24 Methimazole 5 Mg Tab PO 5 mg DAILY [facility]OE[facility] Administration Metoprolol Tartrate 50 mg 07/07/24 21:00 07/11/24 10:03 Metoprolol Tartrate 50 Mg Tab PO Not Given BID [facility] Multi-Ingred Cream/Lotion/Oil/Oint 1 applic 07/08/24 09:00 07/11/24 09:25 Mineral Oil-White Petrolatum 120 Gm Jar TOPICAL 1 applic DAILY [facility] Administration Nystatin 1 applic 07/08/24 12:00 07/11/24 09:25 Nystatin 100,000 Unit/Gm Powd 15 Gm TOPICAL 1 applic BID PHOEBE Administration Protocol Pantoprazole Sodium 40 mg 07/08/24 06:00 07/11/24 06:23 Pantoprazole 40 Mg Tablet PO 40 mg DAILY@0600 [facility]OE[facility] Administration Pioglitazone HCl 30 mg 07/08/24 09:00 07/11/24 09:24 Pioglitazone 30 Mg Tab PO 30 mg DAILY [facility] Administration Psyllium Hydrophilic Mucilloid 6 gm 07/10/24 09:00 07/11/24 09:24 Psyllium Husk 100% 6 Gm Packet PO 6 gm DAILY [facility] Administration Senna/Docusate Sodium 1 each 07/07/24 17:00 07/11/24 09:24 Sennosides-Docusate Sodium 1 Each Tab PO 1 each BID@0800,1700 [facility] Administration Sodium Biphosphate/Sodium Phosphate 133 ml 07/07/24 12:54 Na Phos,M-B/Na Phos,Di-Ba 133 Ml Enema RECTAL DAILY PRN Constipation Spironolactone 25 mg 07/07/24 21:00 07/10/24 21:04 Spironolactone 25 Mg Tab PO 25 mg HS [facility]OEBE Administration Tamsulosin HCl 0.4 mg 07/07/24 21:00 07/11/24 09:24 Tamsulosin 0.4 Mg Cap.Er.24h PO 0.4 mg BID PHOEBE Administration Intake and Output 07/10/24 07/11/24 07/11/24 22:59 06:59 14:59 Output Total 1200 1600 Balance -1200 -1600 Output: Urine 1200 1600 Other: Voiding Method External Catheter External Catheter # Voids 1 07/10/24 03:36 07/11/24 04:00
--- NOTE | 2024-07-11 13:56 | P.PN ---
Subjective Progress Note Date: 07/11/24 Principal diagnosis: Reason for follow-up is UTI Patient is a 73-year-old male with a past medical history significant for hypertension hyperlipidemia prostate disorder sleep apnea COPD heart failure has been sent to the hospital for evaluation of testicular pain and a UTI that apparently was diagnosed about a week ago and did not respond to outpatient oral Cipro Levaquin therapy. On today's evaluation that is 07/11/2024, Patient is afebrile this morning patient denies having any chest pain shortness of breath or cough, the patient is currently on room air, patient denies a lower abdominal and scrotal discomfort has decreased in intensity no nausea no vomiting. Patient creatinine 0.92 blood culture repeat pending Objective - Vital Signs Vital signs: Vital Signs Temp 97.7 F 07/11/24 10:49 Pulse 49 L 07/11/24 10:49 Resp 16 07/11/24 10:49 BP 139/69 07/11/24 10:49 Pulse Ox 99 07/11/24 10:49 FiO2 Intake & Output 07/10/24 07/11/24 07/11/24 18:59 06:59 18:59 Intake Total 10 Output Total 1200 1600 Balance -1200 -1600 10 Intake: IV 10 Invasive Line 2 10 Output: Urine 1200 1600 Other: Voiding Method External Catheter External Catheter External Catheter # Voids 1 - Exam GENERAL DESCRIPTION: An elderly male lying in bed in no distress RESPIRATORY SYSTEM: Unlabored breathing , decreased breath sounds at bases HEART: S1 S2 regular rate and rhythm , ABDOMEN: Soft , no tenderness EXTREMITIES: No edema feet - Labs CBC & Chem 7: 07/10/24 03:36 07/11/24 04:00 Labs: Abnormal Lab Results - Last 24 Hours (Table) 07/10/24 07/10/24 07/11/24 Range/Units 16:27 20:22 06:10 POC Glucose (mg/dL) 176 H 198 H 164 H (70-110) mg/dL 07/11/24 Range/Units 11:37 POC Glucose (mg/dL) 279 H (70-110) mg/dL Microbiology - Last 24 Hours (Table) 07/07/24 14:23 Blood Culture Gram Stain - Preliminary Blood Blood Culture - Preliminary Presumptive MRSA Molecular ID Assessment and Plan (1) Failure of outpatient treatment Current Visit: Yes Status: Acute Code(s): Z78.9 - OTHER SPECIFIED HEALTH STATUS SNOMED Code(s): 045223861 (2) UTI (urinary tract infection) Current Visit: Yes Status: Acute Code(s): N39.0 - URINARY TRACT INFECTION, SITE NOT SPECIFIED SNOMED Code(s): 45796189 (3) Leukocytosis Current Visit: Yes Status: Acute Code(s): D72.829 - ELEVATED WHITE BLOOD CELL COUNT, UNSPECIFIED SNOMED Code(s): 027379831 (4) MRSA (methicillin resistant staph aureus) culture positive Current Visit: Yes Status: Acute Code(s): Z22.322 - CARRIER OR SUSPECTED CARRIER OF METHICILLIN RESIS STAPH SNOMED Code(s): 478242647 (5) Penicillin allergy Current Visit: No Status: Acute Code(s): Z88.0 - ALLERGY STATUS TO PENICILLIN SNOMED Code(s): 53496376 (6) MRSA bacteremia Current Visit: Yes Status: Acute Code(s): R78.81 - BACTEREMIA; B95.62 - METHICILLIN RESIS STAPH INFCT CAUSING DISEASES CLASSD ELSR SNOMED Code(s): 92364488763028777 Plan: 1patient is in the hospital with burning painful urination as well as suprapubic pain testicular swelling and pain in this patient who did have urine culture done on 07/03/2024 that was positive for ESBL Klebsiella and MRSA failing outpatient oral Cipro and Levaquin therapy 2-leukocytosis likely due to complicated UTI 3-penicillin allergy that will limit number of antibiotics safe to use 4patient urine is currently growing MRSA in the blood culture also positive for MRSA 5blood cultures has been repeated document clearance of bacteremia will l need a PICC line placement once he is followed blood culture negative, for now continue with vancomycin pharmacy to dose Dictation was produced using [employer] software. please excuse any grammatical, word or spelling errors. Time with Patient: Less than 30
--- NOTE | 2024-07-11 14:10 | P.PN ---
Subjective Progress Note Date: 07/11/24 The patient is in the hospital with a urinary tract infection and secondary orchalgia. His bacteria is MRSA. He is feeling better. Objective - Vital Signs Vital signs: Vital Signs Temp 97.7 F 07/11/24 10:49 Pulse 49 L 07/11/24 10:49 Resp 16 07/11/24 10:49 BP 139/69 07/11/24 10:49 Pulse Ox 99 07/11/24 10:49 FiO2 Intake & Output 07/10/24 07/11/24 07/11/24 18:59 06:59 18:59 Intake Total 10 Output Total 1200 1600 Balance -1200 -1600 10 Intake: IV 10 Invasive Line 2 10 Output: Urine 1200 1600 Other: Voiding Method External Catheter External Catheter External Catheter # Voids 1 - Labs CBC & Chem 7: 07/10/24 03:36 07/11/24 04:00 Labs: Abnormal Lab Results - Last 24 Hours (Table) 07/10/24 07/10/24 07/11/24 Range/Units 16:27 20:22 06:10 POC Glucose (mg/dL) 176 H 198 H 164 H (70-110) mg/dL 07/11/24 Range/Units 11:37 POC Glucose (mg/dL) 279 H (70-110) mg/dL Microbiology - Last 24 Hours (Table) 07/07/24 14:23 Blood Culture Gram Stain - Preliminary Blood Blood Culture - Preliminary Presumptive MRSA Molecular ID Assessment and Plan Assessment: Impression: Urinary tract infection secondary to MRSA. Recommendations continue with antibiotics.
[2024-07-11 16:36] LABS: Glucose,Whole Blood 286 mg/dL (70-110)
[2024-07-11 21:06] LABS: Glucose,Whole Blood 289 mg/dL (70-110)
[2024-07-12 04:24] LABS: ALT 48 U/L (4-49); AST 24 U/L (17-59); African American GFR (CKD) >90 (>60 ml/min/1.73 sqM); Albumin 2.5 g/dL (3.5-5.0); Albumin/Globulin Ratio 0.8; Alkaline Phosphatase 152 U/L (38-126); Anion Gap 6 mmol/L; Blood Urea Nitrogen 21 mg/dL (9-20); Calcium 8.8 mg/dL (8.4-10.2); Carbon Dioxide 28 mmol/L (22-30); Chloride 100 mmol/L (98-107); Glucose 161 mg/dL (74-99); Non-African American GFR(CKD) 86 (>60 ml/min/1.73 sqM); Potassium 4.1 mmol/L (3.5-5.1); Sodium 134 mmol/L (137-145); Total Bilirubin 0.6 mg/dL (0.2-1.3); Total Protein 5.5 g/dL (6.3-8.2)
[2024-07-12 06:27] LABS: Glucose,Whole Blood 157 mg/dL (70-110)
[2024-07-12 08:53] LABS: Basophils # (A) 0.06 X 10*3/uL (0.00-0.10); Basophils % (A) 0.6 %; Eosinophils % (A) 2.1 %; HCT 31.8 % (39.6-50.0); HGB 10.4 g/dL (13.0-17.0); Lymphocytes # (A) 1.36 X 10*3/uL (0.90-5.00); Lymphocytes % (A) 14.5 %; MCH 30.4 pg (27.0-32.0); MCHC 32.7 g/dL (32.0-37.0); Mean Platelet Volume 9.2 FL (9.5-12.2); Monocytes # (A) 0.65 X 10*3/uL (0.20-1.00); Monocytes % (A) 6.9 %; NRBC Per 100 WBC 0 X 10*3/uL (0.00-0.01); Neutrophils % (A) 73.9 %; Platelet Count 396 X 10*3/uL (140-440); RBC 3.42 X 10*6/uL (4.40-5.60); RDW 14.2 % (11.5-14.5); WBC 9.36 X 10*3/uL (4.50-10.00)
[2024-07-12 11:03] LABS: Glucose,Whole Blood 273 mg/dL (70-110)
[2024-07-12 16:23] LABS: Glucose,Whole Blood 266 mg/dL (70-110)
--- NOTE | 2024-07-12 16:44 | P.PN ---
Subjective Progress Note Date: 07/12/24 Francisco Cao, is a 73-year-old male resident of [facility] who was transferred to [facility] emergency room due to urinary tract infection with multiple resistant organisms, and pain in the left testicle. He was evaluated in the emergency room vital examination on presentation rev ealed a temperature of 97.5 pulse 87 respiration 17 blood pressure 137/71 pulse ox 99% on room air Laboratory data revealed a white blood count of 18.9 hemoglobin 10.8 platelet count 352 sodium 134 BUN 23 creatinine 0.76 hemoglobin A1c 8.4 albumin is low at 2.7 Urine culture from the halfway was positive for Klebsiella pneumonia ESBL MDRO and methicillin-resistant Staphylococcus aureus Testing in the emergency room : Patient had an ultrasound of the scrotum that revealed soft tissue density with vascularity between the testicles. Patient was admitted to medical floor for further evaluation and treatment Past medical history is significant for history of hypertension, history of hyperlipidemia, history of hyperthyroidism, history of diabetes mellitus, history of atrial fibrillation, history of chronic systolic congestive heart failure, history of physical debility, history of recurrent urinary tract infections On review of systems patient is alert and oriented x 3 in no apparent distress there is no fever or chills no headache or dizziness no chest pain no shortness of breath no cough no nausea or vomiting no abdominal pain no diarrhea no blood in the stools no burning with urination no he has frequency with urination, and pain in the left testicle area. Patient has generalized weakness with inability to stand or walk, he is able to pivot from bed to wheelchair with help. On 07/08/2024 patient was seen and examined on the medical floor he is alert and oriented x 3 in no apparent distress he reports some improvement in the pain in the left testicle area otherwise he denies any complaints at this time there is no fever or chills no headache or dizziness no chest pain no shortness of breath no cough no nausea or vomiting no abdominal pain no diarrhea and no urinary sy mptoms. Vital examination reveals a temperature of 98 pulse 58 respiration 16 blood pressure 118/67 pulse ox 97% on room air white blood count is 14.43 hemoglobin 9.8 platelet count 348 On 07/09/2024 patient was seen and examined on the medical floor he is alert and oriented x 3 in no apparent distress he reports improvement in the pain in the left testicle area otherwise he denies any complaints at this time there is no fever or chills no headache or dizziness no chest pain no shortness of breath no cough no nausea or vomiting no abdominal pain no diarrhea and no urinary symptoms. Urology consult reviewed continue with current IV antibiotic will recheck labs and follow in a.m.. On 07/10/2024 patient was seen and examined on the medical floor he is alert and oriented x 3 in no apparent distress there is no fever or chills no headache or dizziness no chest pain no shortness of breath no cough no nausea or vomiting no abdominal pain no diarrhea, he is still complaining of burning with urination and pain in the left testicle. Patient states that he was supposed to have a cardiac catheterization as outpatient, which was canceled due to infected cyst in the sacral area, he is asking to see a indexer to assess if cardiac catheterization can be rescheduled soon. Will arrange for cardiology consult On 07/11/2024 patient is alert and oriented x 3. Patient reports improvement wi th discomfort. Cardiology services have been consulted awaiting further input. Patient remains on IV vancomycin. Current vital signs temp 98.2, heart rate 54, respiratory rate 18, blood pressure 115/71 with a pulse ox of 97% on room air. Patient denies chest pain or shortness of breath. Patient denies nausea vomiting or diarrhea. Patient denies any urinary burning or frequency On 07/12/2024 patient was seen and examined on the medical floor he is alert and oriented x 3 in no apparent distress there is no fever or chills no headache or dizziness no chest pain no shortness of breath no cough no nausea or vomiting no abdominal pain no diarrhea he is still complaining of pain in the left testicle but has improved significantly and complaining of burning with urination. Patient was evaluated by cardiology today no plans for cardiac catheterization at this time. At this time we are awaiting for infectious disease recommendation to assess for antibiotic at the time of discharge. Objective - Vital Signs Vital signs: Vital Signs Temp 97.7 F 07/12/24 01:40 Pulse 55 L 07/12/24 01:40 Resp 15 07/12/24 01:40 BP 125/67 07/12/24 01:40 Pulse Ox 96 07/12/24 01:40 FiO2 Intake & Output 07/11/24 07/11/24 07/12/24 06:59 18:59 06:59 Intake Total 10 Output Total 1600 1550 1650 Balance -3797 -3292 -1659 Intake: IV 10 Invasive Line 2 10 Output: Urine 1600 1550 1650 Other: Voiding Method External Catheter External Catheter External Catheter # Voids 1 1 # Bowel Movements 1 - Exam In general patient is alert and oriented x 3 in no distress HEENT head normocephalic and atraumatic Neck is supple no JVD no goiter no lymphadenopathy no carotid bruit Chest examination is clear to auscultation no crackles no wheezing Cardiac exam reveals regular heart sounds S1 and S2 no gallops no murmurs Abdomen is soft nontender no organomegaly with normal bowel sounds Extremity exam reveals no edema no cyanosis or clubbing, patient has protective boots on both feet Neurological examination reveals generalized weakness no gross focal deficits - Labs CBC & Chem 7: 07/12/24 03:31 07/12/24 03:31 Labs: Abnormal Lab Results - Last 24 Hours (Table) 07/11/24 07/11/24 07/11/24 Range/Units 11:37 16:35 21:04 Sodium (137-145) mmol/L BUN (9-20) mg/dL Glucose (74-99) mg/dL POC Glucose (mg/dL) 279 H 286 H 289 H (70-110) mg/dL Alkaline Phosphatase (38-126) U/L Total Protein (6.3-8.2) g/dL Albumin (3.5-5.0) g/dL 07/12/24 07/12/24 Range/Units 03:31 06:25 Sodium 134 L (137-145) mmol/L BUN 21 H (9-20) mg/dL Glucose 161 H (74-99) mg/dL POC Glucose (mg/dL) 157 H (70-110) mg/dL Alkaline Phosphatase 152 H (38-126) U/L Total Protein 5.5 L (6.3-8.2) g/dL Albumin 2.5 L (3.5-5.0) g/dL Microbiology - Last 24 Hours (Table) 07/07/24 14:23 Blood Culture Gram Stain - Final Blood Blood Culture - Final Methicillin resist S. aureus Molecular ID Assessment and Plan Plan: Urinary tract infection Multiple antibiotic allergies Pain in the left testicle Underlying history of hypertension Underlying history of hyperlipidemia Underlying history of hyperthyroidism Underlying history of diabetes mellitus Underlying history of atrial fibrillation Underlying history of chronic systolic congestive heart failure without exacerbation at this time Underlying history of pulmonary hypertension with enlarged right ventricle Underlying history of physical debility patient is wheelchair and bedbound At this time patient was seen and examined Home medications reviewed and reordered Patient wishes to be DNR order was entered Infectious disease consultation and urology consultation requested For DVT prophylaxis will continue with Darin Will follow closely during this admission
[2024-07-12] MEDS: INSULIN ASPART (NovoLOG) 100 UNIT/ML VIAL SQ SCH (17:08)
[2024-07-12 20:44] LABS: Glucose,Whole Blood 206 mg/dL (70-110)
--- NOTE | 2024-07-12 21:59 | P.PN ---
Subjective Progress Note Date: 07/12/24 Principal diagnosis: Reason for follow-up is UTI Patient is a 73-year-old male with a past medical history significant for hypertension hyperlipidemia prostate disorder sleep apnea COPD heart failure has been sent to the hospital for evaluation of testicular pain and a UTI that apparently was diagnosed about a week ago and did not respond to outpatient oral Cipro Levaquin therapy. On today's evaluation that is 07/12/2024,the patient denies any fever or any chills, patient is breathing comfortably on room air, the patient denies chest pain shortness of breath and no significant cough, patient denies abdominal pain, no nausea vomiting or diarrhea. Mention pain on urination as well as scrotal area has decreased in intensity. Patient white count is 9.36 creatinine 0.84 blood culture repeat has been negative so far Objective - Vital Signs Vital signs: Vital Signs Temp 97.9 F 07/12/24 07:17 Pulse 68 07/12/24 07:17 Resp 17 07/12/24 07:17 BP 129/74 07/12/24 07:17 Pulse Ox 99 07/12/24 07:17 FiO2 Intake & Output 07/11/24 07/12/24 07/12/24 18:59 06:59 18:59 Intake Total 10 Output Total 1550 1650 500 Balance -1540 -1650 -500 Intake: IV 10 Invasive Line 2 10 Output: Urine 1550 1650 500 Other: Voiding Method External Catheter External Catheter External Catheter # Voids 1 # Bowel Movements 1 - Exam GENERAL DESCRIPTION: An elderly male lying in bed in no distress RESPIRATORY SYSTEM: Unlabored breathing , decreased breath sounds at bases HEART: S1 S2 regular rate and rhythm , ABDOMEN: Soft , no tenderness EXTREMITIES: No edema feet - Labs CBC & Chem 7: 07/12/24 03:31 07/12/24 03:31 Labs: Abnormal Lab Results - Last 24 Hours (Table) 07/11/24 07/11/24 07/12/24 Range/Units 16:35 21:04 03:31 RBC 3.42 L (4.40-5.60) X 10*6/uL Hgb 10.4 L (13.0-17.0) g/dL Hct 31.8 L (39.6-50.0) % MPV 9.2 L (9.5-12.2) FL Immature Gran # 0.19 H (0.00-0.04) X 10*3/uL Sodium (137-145) mmol/L BUN (9-20) mg/dL Glucose (74-99) mg/dL POC Glucose (mg/dL) 286 H 289 H (70-110) mg/dL Alkaline Phosphatase (38-126) U/L Total Protein (6.3-8.2) g/dL Albumin (3.5-5.0) g/dL 07/12/24 07/12/24 07/12/24 Range/Units 03:31 06:25 11:01 RBC (4.40-5.60) X 10*6/uL Hgb (13.0-17.0) g/dL Hct (39.6-50.0) % MPV (9.5-12.2) FL Immature Gran # (0.00-0.04) X 10*3/uL Sodium 134 L (137-145) mmol/L BUN 21 H (9-20) mg/dL Glucose 161 H (74-99) mg/dL POC Glucose (mg/dL) 157 H 273 H (70-110) mg/dL Alkaline Phosphatase 152 H (38-126) U/L Total Protein 5.5 L (6.3-8.2) g/dL Albumin 2.5 L (3.5-5.0) g/dL Microbiology - Last 24 Hours (Table) 07/07/24 14:23 Blood Culture Gram Stain - Final Blood Blood Culture - Final Methicillin resist S. aureus Molecular ID Assessment and Plan (1) Failure of outpatient treatment Current Visit: Yes Status: Acute Code(s): Z78.9 - OTHER SPECIFIED HEALTH STATUS SNOMED Code(s): 728964119 (2) UTI (urinary tract infection) Current Visit: Yes Status: Acute Code(s): N39.0 - URINARY TRACT INFECTION, SITE NOT SPECIFIED SNOMED Code(s): 57801212 (3) Leukocytosis Current Visit: Yes Status: Acute Code(s): D72.829 - ELEVATED WHITE BLOOD CELL COUNT, UNSPECIFIED SNOMED Code(s): 176295710 (4) MRSA (methicillin resistant staph aureus) culture positive Current Visit: Yes Status: Acute Code(s): Z22.322 - CARRIER OR SUSPECTED CARRIER OF METHICILLIN RESIS STAPH SNOMED Code(s): 163765479 (5) Penicillin allergy Current Visit: No Status: Acute Code(s): Z88.0 - ALLERGY STATUS TO P ENICILLIN SNOMED Code(s): 49241176 (6) MRSA bacteremia Current Visit: Yes Status: Acute Code(s): R78.81 - BACTEREMIA; B95.62 - METHICILLIN RESIS STAPH INFCT CAUSING DISEASES CLASSD ELSWHR SNOMED Code(s): 58300861222807063 Plan: 1patient is in the hospital with burning painful urination as well as suprapubic pain testicular swelling and pain in this patient who did have urine culture done on 07/03/2024 that was positive for ESBL Klebsiella and MRSA failing outpatient oral Cipro and Levaquin therapy 2-leukocytosis likely due to complicated UTI" subsequent normalized 3-penicillin allergy that will limit number of antibiotics safe to use 4patient urine culture grew MRSA, the blood culture also positive for MRSA 5blood cultures has been repeated 07/11/2024 and has been negative so far it remains to be negative at 72 hours to get a PICC line for outpatient IV antibiotics for now continue with vancomycin and monitor clinical course closely Dictation was produced using [employer] software. please excuse any grammatical, word or spelling errors.
[2024-07-13 06:21] LABS: Glucose,Whole Blood 156 mg/dL (70-110)
--- NOTE | 2024-07-13 09:39 | P.PN ---
Subjective Progress Note Date: 07/13/24 Francisco Cao, is a 73-year-old male resident of [facility] who was transferred to [facility] emergency room due to urinary tract infection with multiple resistant organisms, and pain in the left testicle. He was evaluated in the emergency room vital examination on presentation rev ealed a temperature of 97.5 pulse 87 respiration 17 blood pressure 137/71 pulse ox 99% on room air Laboratory data revealed a white blood count of 18.9 hemoglobin 10.8 platelet count 352 sodium 134 BUN 23 creatinine 0.76 hemoglobin A1c 8.4 albumin is low at 2.7 [facility] for Klebsiella pneumonia ESBL MDRO and methicillin-resistant Staphylococcus aureus Testing in the emergency room : Patient had an ultrasound of the scrotum that revealed soft tissue density with vascularity between the testicles. Patient was admitted to medical floor for further evaluation and treatment Past medical history is significant for history of hypertension, history of hyperlipidemia, history of hyperthyroidism, history of diabetes mellitus, history of atrial fibrillation, history of chronic systolic congestive heart failure, history of physical debility, history of recurrent urinary tract infections On review of systems patient is alert and oriented x 3 in no apparent distress there is no fever or chills no headache or dizziness no chest pain no shortness of breath no cough no nausea or vomiting no abdominal pain no diarrhea no blood in the stools no burning with urination no he has frequency with urination, and pain in the left testicle area. Patient has generalized weakness with inability to stand or walk, he is able to pivot from bed to wheelchair with help. On 07/08/2024 patient was seen and examined on the medical floor he is alert and oriented x 3 in no apparent distress he reports some improvement in the pain in the left testicle area otherwise he denies any complaints at this time there is no fever or chills no headache or dizziness no chest pain no shortness of breath no cough no nausea or vomiting no abdominal pain no diarrhea and no urinary sy mptoms. Vital examination reveals a temperature of 98 pulse 58 respiration 16 blood pressure 118/67 pulse ox 97% on room air white blood count is 14.43 hemoglobin 9.8 platelet count 348 On 07/09/2024 patient was seen and examined on the medical floor he is alert and oriented x 3 in no apparent distress he reports improvement in the pain in the left testicle area otherwise he denies any complaints at this time there is no fever or chills no headache or dizziness no chest pain no shortness of breath no cough no nausea or vomiting no abdominal pain no diarrhea and no urinary symptoms. Urology consult reviewed continue with current IV antibiotic will recheck labs and follow in a.m.. On 07/10/2024 patient was seen and examined on the medical floor he is alert and oriented x 3 in no apparent distress there is no fever or chills no headache or dizziness no chest pain no shortness of breath no cough no nausea or vomiting no abdominal pain no diarrhea, he is still complaining of burning with urination and pain in the left testicle. Patient states that he was supposed to have a cardiac catheterization as outpatient, which was canceled due to infected cyst in the sacral area, he is asking to see a hat ironer to assess if cardiac catheterization can be rescheduled soon. Will arrange for cardiology consult On 07/11/2024 patient is alert and oriented x 3. Patient reports improvement wi th discomfort. Cardiology services have been consulted awaiting further input. Patient remains on IV vancomycin. Current vital signs temp 98.2, heart rate 54, respiratory rate 18, blood pressure 115/71 with a pulse ox of 97% on room air. Patient denies chest pain or shortness of breath. Patient denies nausea vomiting or diarrhea. Patient denies any urinary burning or frequency On 07/12/2024 patient was seen and examined on the medical floor he is alert and oriented x 3 in no apparent distress there is no fever or chills no headache or dizziness no chest pain no shortness of breath no cough no nausea or vomiting no abdominal pain no diarrhea he is still complaining of pain in the left testicle but has improved significantly and complaining of burning with urination. Patient was evaluated by cardiology today no plans for cardiac catheterization at this time. At this time we are awaiting for infectious disease recommendation to assess for antibiotic at the time of discharge. On 07/13/2024 patient is alert and oriented x 3. Patient denies chest pain or shortness of breath. Patient denies nausea vomiting or diarrhea. Patient denies any urinary burning or frequency. Per ID waiting on repeat blood culture to be negative for 72 hours prior to getting PICC line for outpatient IV antibiotic Objective - Vital Signs Vital signs: Vital Signs Temp 98.0 F 07/13/24 08:00 Pulse 51 L 07/13/24 08:00 Resp 16 07/13/24 08:00 BP 107/65 07/13/24 08:00 Pulse Ox 95 07/13/24 08:00 FiO2 Intake & Output 07/12/24 07/13/24 07/13/24 18:59 06:59 18:59 Intake Total 250 Output Total 3300 1100 Balance -3050 -1100 Intake: Intake, IV Titration 250 Amount Vancomycin 1,250 mg In 250 Sodium Chloride 0.9% 250 ml @ 125 mls/hr IVPB Q12H [facility] Rx#:[id number] Output: Urine 3300 1100 Other: Voiding Method External Catheter External Catheter # Voids 1 - Exam In general patient is alert and oriented x 3 in no distress HEENT head normocephalic and atraumatic Neck is supple no JVD no goiter no lymphadenopathy no carotid bruit Chest examination is clear to auscultation no crackles no wheezing Cardiac exam reveals regular heart sounds S1 and S2 no gallops no murmurs Abdomen is soft nontender no organomegaly with normal bowel sounds Extremity exam reveals no edema no cyanosis or clubbing, patient has protective boots on both feet Neurological examination reveals generalized weakness no gross focal deficits - Labs CBC & Chem 7: 07/12/24 03:31 07/12/24 03:31 Labs: Abnormal Lab Results - Last 24 Hours (Table) 07/12/24 07/12/24 07/12/24 Range/Units 11:01 16:22 20:39 POC Glucose (mg/dL) 273 H 266 H 206 H (70-110) mg/dL 07/13/24 Range/Units 06:19 POC Glucose (mg/dL) 156 H (70-110) mg/dL Microbiology - Last 24 Hours (Table) 07/11/24 04:04 Blood Culture - Preliminary Blood 07/07/24 14:23 Blood Culture Gram Stain - Final Blood Blood Culture - Final Methicillin resist S. aureus Molecular ID Assessment and Plan Plan: Urinary tract infection Multiple antibiotic allergies Pain in the left testicle Underlying history of hypertension Underlying history of hyperlipidemia Underlying history of hyperthyroidism Underlying history of diabetes mellitus Underlying history of atrial fibrillation Underlying history of chronic systolic congestive heart failure without exacerbation at this time Underlying history of pulmonary hypertension with enlarged right ventricle Underlying history of physical debility patient is wheelchair and bedbound At this time patient was seen and examined Home medications reviewed and reordered Patient wishes to be DNR order was entered Infectious disease consultation and urology consultation requested For DVT prophylaxis will continue with Darin Will follow closely during this admission
[2024-07-13 11:22] LABS: Glucose,Whole Blood 285 mg/dL (70-110)
[2024-07-13 13:27] LABS: African American GFR (CKD) 88 (>60 ml/min/1.73 sqM); Non-African American GFR(CKD) 76 (>60 ml/min/1.73 sqM)
[2024-07-13] MEDS: VANCOMYCIN TROUGH DUE 1 EACH MISC MISCELLANE ONE (13:35)
--- NOTE | 2024-07-13 15:03 | P.PN ---
Subjective Progress Note Date: 07/13/24 Principal diagnosis: Reason for follow-up is UTI Patient is a 73-year-old male with a past medical history significant for hypertension hyperlipidemia prostate disorder sleep apnea COPD heart failure has been sent to the hospital for evaluation of testicular pain and a UTI that apparently was diagnosed about a week ago and did not respond to outpatient oral Cipro Levaquin therapy. On today's evaluation that is 07/13/2024,the patient remains to be afebrile, patient is on room air not requiring supplemental oxygen and denies any shortness of breath no chest pain or cough.Patient denies having any nausea or vomiting, no abdominal pain and no diarrhea pain to the scrotal area has decreased in intensity. Patient did have creatinine 0.98 blood culture from 07/11/2024 so far negative Objective - Vital Signs Vital signs: Vital Signs Temp 98.4 F 07/13/24 13:20 Pulse 51 L 07/13/24 13:20 Resp 15 07/13/24 13:20 BP 106/55 07/13/24 13:20 Pulse Ox 98 07/13/24 13:20 FiO2 Intake & Output 07/12/24 07/13/24 07/13/24 18:59 06:59 18:59 Intake Total 250 Output Total 3300 1100 Balance -3050 -1100 Intake: Intake, IV Titration 250 Amount Vancomycin 1,250 mg In 250 Sodium Chloride 0.9% 250 ml @ 125 mls/hr IVPB Q12H [facility] Rx#:[id number] Output: Urine 3300 1100 Other: Voiding Method External Catheter External Catheter # Voids 1 - Exam GENERAL DESCRIPTION: An elderly male lying in bed in no distress RESPIRATORY SYSTEM: Unlabored breathing , decreased breath sounds at bases HEART: S1 S2 regular rate and rhythm , ABDOMEN: Soft , no tenderness EXTREMITIES: No edema feet - Labs CBC & Chem 7: 07/12/24 03:31 07/13/24 12:42 Labs: Abnormal Lab Results - Last 24 Hours (Table) 07/12/24 07/12/24 07/13/24 Range/Units 16:22 20:39 06:19 POC Glucose (mg/dL) 266 H 206 H 156 H (70-110) mg/dL 07/13/24 Range/Units 11:21 POC Glucose (mg/dL) 285 H (70-110) mg/dL Microbiology - Last 24 Hours (Table) 07/11/24 04:04 Blood Culture - Preliminary Blood Assessment and Plan (1) Failure of outpatient treatment Current Visit: Yes Status: Acute Code(s): Z78.9 - OTHER SPECIFIED HEALTH STATUS SNOMED Code(s): 546986146 (2) UTI (urinary tract infection) Current Visit: Yes Status: Acute Code(s): N39.0 - URINARY TRACT INFECTION, SITE NOT SPECIFIED SNOMED Code(s): 59676041 (3) Leukocytosis Current Visit: Yes Status: Acute Code(s): D72.829 - ELEVATED WHITE BLOOD CELL COUNT, UNSPECIFIED SNOMED Code(s): 420332341 (4) MRSA (methicillin resistant staph aureus) culture positive Current Visit: Yes Status: Acute Code(s): Z22.322 - CARRIER OR SUSPECTED CARRIER OF METHICILLIN RESIS STAPH SNOMED Code(s): 890028448 (5) Penicillin allergy Current Visit: No Status: Acute Code(s): Z88.0 - ALLERGY STATUS TO PENICILLIN SNOMED Code(s): 80043217 (6) MRSA bacteremia Current Visit: Yes Status: Acute Code(s): R78.81 - BACTEREMIA; B95.62 - METHICILLIN RESIS STAPH INFCT CAUSING DISEASES CLASSD ELSR SNOMED Code(s): 18021590572259810 Plan: 1patient is in the hospital with burning painful urination as well as suprapubic pain testicular swelling and pain in this patient who did have urine culture done on 07/03/2024 that was positive for ESBL Klebsiella and MRSA failing outpatient oral Cipro and Levaquin therapy 2-leukocytosis likely due to complicated UTI, the patient white count has normalized 3-penicillin allergy that will limit number of antibiotics safe to use 4patient urine culture grew MRSA, the blood culture also positive for MRSA 5blood cultures has been repeated 07/11/2024 and has been negative so far it remains to be negative by tomorrow morning we will place a PICC line for outpatient IV vancomycin on discharge Dictation was produced using [employer] software. please excuse any grammatical, word or spelling errors. Time with Patient: Less than 30
[2024-07-13 16:16] LABS: Glucose,Whole Blood 234 mg/dL (70-110)
[2024-07-13 20:41] LABS: Glucose,Whole Blood 127 mg/dL (70-110)
[2024-07-13 23:17] VITALS: RESP 17
[2024-07-14 06:29] LABS: Glucose,Whole Blood 125 mg/dL (70-110)
[2024-07-14 08:35] LABS: Basophils # (A) 0.07 X 10*3/uL (0.00-0.10); Basophils % (A) 0.8 %; Eosinophils # (A) 0.24 X 10*3/uL (0.04-0.35); Eosinophils % (A) 2.7 %; HCT 31.8 % (39.6-50.0); HGB 10.3 g/dL (13.0-17.0); Lymphocytes # (A) 1.67 X 10*3/uL (0.90-5.00); MCHC 32.4 g/dL (32.0-37.0); MCV 92.7 FL (80.0-97.0); Mean Platelet Volume 8.9 FL (9.5-12.2); Monocytes # (A) 0.57 X 10*3/uL (0.20-1.00); Monocytes % (A) 6.5 %; NRBC Per 100 WBC 0 X 10*3/uL (0.00-0.01); Neutrophils # (A) 6.09 X 10*3/uL (1.80-7.70); Neutrophils % (A) 69.2 %; Platelet Count 402 X 10*3/uL (140-440); RBC 3.43 X 10*6/uL (4.40-5.60); RDW 14.6 % (11.5-14.5)
[2024-07-14 08:37] LABS: BUN/Creat Ratio 22.58 Ratio (12.00-20.00); Blood Urea Nitrogen 27.1 mg/dL (9.0-27.0); Chloride 101 mmol/L (96-109); Glucose 146 mg/dL (70-110); Potassium 4.3 mmol/L (3.5-5.5); Sodium 138 mmol/L (135-145)
[2024-07-14 08:38] LABS: ALT 50 U/L (10-49); AST 22 U/L (14-35); Albumin 2.6 g/dL (3.8-4.9); Albumin/Globulin Ratio 0.93 Ratio (1.60-3.17); Alkaline Phosphatase 138 U/L (41-126); Calcium 8.8 mg/dL (8.7-10.3); Globulin 2.8 g/dL (1.6-3.3); Total Bilirubin 0.3 mg/dL (0.3-1.2); Total Protein 5.4 g/dL (6.2-8.2)
--- NOTE | 2024-07-14 09:51 | P.PN ---
Subjective Progress Note Date: 07/14/24 Francisco Cao, is a 73-year-old male resident of [facility] who was transferred to [facility] emergency room due to urinary tract infection with multiple resistant organisms, and pain in the left testicle. He was evaluated in the emergency room vital examination on presentation rev ealed a temperature of 97.5 pulse 87 respiration 17 blood pressure 137/71 pulse ox 99% on room air Laboratory data revealed a white blood count of 18.9 hemoglobin 10.8 platelet count 352 sodium 134 BUN 23 creatinine 0.76 hemoglobin A1c 8.4 albumin is low at 2.7 Urine culture from the snf was positive for Klebsiella pneumonia ESBL MDRO and methicillin-resistant Staphylococcus aureus Testing in the emergency room : Patient had an ultrasound of the scrotum that revealed soft tissue density with vascularity between the testicles. Patient was admitted to medical floor for further evaluation and treatment Past medical history is significant for history of hypertension, history of hyperlipidemia, history of hyperthyroidism, history of diabetes mellitus, history of atrial fibrillation, history of chronic systolic congestive heart failure, history of physical debility, history of recurrent urinary tract infections On review of systems patient is alert and oriented x 3 in no apparent distress there is no fever or chills no headache or dizziness no chest pain no shortness of breath no cough no nausea or vomiting no abdominal pain no diarrhea no blood in the stools no burning with urination no he has frequency with urination, and pain in the left testicle area. Patient has generalized weakness with inability to stand or walk, he is able to pivot from bed to wheelchair with help. On 07/08/2024 patient was seen and examined on the medical floor he is alert and oriented x 3 in no apparent distress he reports some improvement in the pain in the left testicle area otherwise he denies any complaints at this time there is no fever or chills no headache or dizziness no chest pain no shortness of breath no cough no nausea or vomiting no abdominal pain no diarrhea and no urinary sy mptoms. Vital examination reveals a temperature of 98 pulse 58 respiration 16 blood pressure 118/67 pulse ox 97% on room air white blood count is 14.43 hemoglobin 9.8 platelet count 348 On 07/09/2024 patient was seen and examined on the medical floor he is alert and oriented x 3 in no apparent distress he reports improvement in the pain in the left testicle area otherwise he denies any complaints at this time there is no fever or chills no headache or dizziness no chest pain no shortness of breath no cough no nausea or vomiting no abdominal pain no diarrhea and no urinary symptoms. Urology consult reviewed continue with current IV antibiotic will recheck labs and follow in a.m.. On 07/10/2024 patient was seen and examined on the medical floor he is alert and oriented x 3 in no apparent distress there is no fever or chills no headache or dizziness no chest pain no shortness of breath no cough no nausea or vomiting no abdominal pain no diarrhea, he is still complaining of burning with urination and pain in the left testicle. Patient states that he was supposed to have a cardiac catheterization as outpatient, which was canceled due to infected cyst in the sacral area, he is asking to see a facing machine operator to assess if cardiac catheterization can be rescheduled soon. Will arrange for cardiology consult On 07/11/2024 patient is alert and oriented x 3. Patient reports improvement wi th discomfort. Cardiology services have been consulted awaiting further input. Patient remains on IV vancomycin. Current vital signs temp 98.2, heart rate 54, respiratory rate 18, blood pressure 115/71 with a pulse ox of 97% on room air. Patient denies chest pain or shortness of breath. Patient denies nausea vomiting or diarrhea. Patient denies any urinary burning or frequency On 07/12/2024 patient was seen and examined on the medical floor he is alert and oriented x 3 in no apparent distress there is no fever or chills no headache or dizziness no chest pain no shortness of breath no cough no nausea or vomiting no abdominal pain no diarrhea he is still complaining of pain in the left testicle but has improved significantly and complaining of burning with urination. Patient was evaluated by cardiology today no plans for cardiac catheterization at this time. At this time we are awaiting for infectious disease recommendation to assess for antibiotic at the time of discharge. On 07/13/2024 patient is alert and oriented x 3. Patient denies chest pain or shortness of breath. Patient denies nausea vomiting or diarrhea. Patient denies any urinary burning or frequency. Per ID waiting on repeat blood culture to be negative for 72 hours prior to getting PICC line for outpatient IV antibiotic On 07/14/2024 patient is alert and oriented x 3. Patient is currently resting comfortably in bed. PICC line has been ordered per infectious disease but per nursing staff no availability for PICC line placement until Wednesday. Patient will remain on vancomycin. Current vital signs temp 97.9, heart rate 53, respiratory rate 17, blood pressure 119/66 with a pulse ox of 99% on room air Objective - Vital Signs Vital signs: Vital Signs Temp 97.9 F 07/14/24 07:22 Pulse 53 L 07/14/24 07:22 Resp 17 07/14/24 07:22 BP 119/66 07/14/24 07:22 Pulse Ox 99 07/14/24 07:22 FiO2 Intake & Output 07/13/24 07/14/24 07/14/24 18:59 06:59 18:59 Output Total 1800 1250 Balance -1800 -1250 Output: Urine 1800 1250 Other: Voiding Method External Catheter # Voids 1 - Exam In general patient is alert and oriented x 3 in no distress HEENT head normocephalic and atraumatic Neck is supple no JVD no goiter no lymphadenopathy no carotid bruit Chest examination is clear to auscultation no crackles no wheezing Cardiac exam reveals regular heart sounds S1 and S2 no gallops no murmurs Abdomen is soft nontender no organomegaly with normal bowel sounds Extremity exam reveals no edema no cyanosis or clubbing, patient has protective boots on both feet Neurological examination reveals generalized weakness no gross focal deficits - Labs CBC & Chem 7: 07/14/24 03:36 07/14/24 03:36 Labs: Abnormal Lab Results - Last 24 Hours (Table) 07/13/24 07/13/24 07/13/24 Range/Units 11:21 16:15 20:40 RBC (4.40-5.60) X 10*6/uL Hgb (13.0-17.0) g/dL Hct (39.6-50.0) % RDW (11.5-14.5) % MPV (9.5-12.2) FL Immature Gran # (0.00-0.04) X 10*3/uL BUN (9.0-27.0) mg/dL BUN/Creatinine Ratio (12.00-20.00) Ratio Glucose (70-110) mg/dL POC Glucose (mg/dL) 285 H 234 H 127 H (70-110) mg/dL ALT (10-49) U/L Alkaline Phosphatase (41-126) U/L Total Protein (6.2-8.2) g/dL Albumin (3.8-4.9) g/dL Albumin/Globulin Ratio (1.60-3.17) Ratio 07/14/24 07/14/24 07/14/24 Range/Units 03:36 03:36 06:27 RBC 3.43 L (4.40-5.60) X 10*6/uL Hgb 10.3 L (13.0-17.0) g/dL Hct 31.8 L (39.6-50.0) % RDW 14.6 H (11.5-14.5) % MPV 8.9 L (9.5-12.2) FL Immature Gran # 0.16 H (0.00-0.04) X 10*3/uL BUN 27.1 H (9.0-27.0) mg/dL BUN/Creatinine Ratio 22.58 H (12.00-20.00) Ratio Glucose 146 H (70-110) mg/dL POC Glucose (mg/dL) 125 H (70-110) mg/dL ALT 50 H (10-49) U/L Alkaline Phosphatase 138 H (41-126) U/L Total Protein 5.4 L (6.2-8.2) g/dL Albumin 2.6 L (3.8-4.9) g/dL Albumin/Globulin Ratio 0.93 L (1.60-3.17) Ratio Microbiology - Last 24 Hours (Table) 07/11/24 04:04 Blood Culture - Preliminary Blood Assessment and Plan Plan: Urinary tract infection Multiple antibiotic allergies Pain in the left testicle Underlying history of hypertension Underlying history of hyperlipidemia Underlying history of hyperthyroidism Underlying history of diabetes mellitus Underlying history of atrial fibrillation Underlying history of chronic systolic congestive heart failure without exacerbation at this time Underlying history of pulmonary hypertension with enlarged right ventricle Underlying history of physical debility patient is wheelchair and bedbound At this time patient was seen and examined Home medications reviewed and reordered Patient wishes to be DNR order was entered Infectious disease consultation and urology consultation requested For DVT prophylaxis will continue with Eliquis Will follow closely during this admission
--- NOTE | 2024-07-14 10:46 | P.OP ---
Date of Procedure: 07/14/24 Description of Procedure: Preoperative Diagnosis: Need for long-term IV antibiotic access. Postoperative Diagnosis: Same. Procedure(s) Performed: Ultrasound-guided cannulation left cephalic vein. Insertion of peripherally inserted central catheter under fluoroscopic guidance. Anesthesia: local 1% lidocaine augusta Surgeon: Flakito Estimated Blood Loss (ml): 5 IV fluids (ml): 0 Urine output (ml): 0 Pathology: none sent Condition: stable Disposition: no change Indications for Procedure: Patient requires long-term IV antibiotics as an outpatient patient is offered a PICC line to allow for intravenous administration of antibiotics. Description of Procedure: Patient was brought to the special procedure suite. The left upper extremity sterilely prepped and draped in usual manner. Ultrasound was utilized to identify the cephalic vein which was normally compressible free of visible thrombus. Permenant image was stored. 1% Xylocaine was utilized for local anesthesia tissues overlying the vein. Through this anesthetized area and with the aid of ultrasound a micropuncture needle was utilized to cannulate the vein. Once cannulated, Softip guidewire was advanced into the vein. The needle was withdrawn and a micropuncture sheath and dilator advanced over the guidewire. The guidewire was withdrawn and exchanged for the PICC guidewire and measured 47 cm to the cavoatrial junction. The catheter was cut to size and advanced into the cavoatrial junction without resistance. The sheath was peeled away. Blood was easily withdrawn through the catheter and the catheter was then flushed with heparinized saline solution and secured to the skin. Patient tolerated procedure well and was returned to their room in satisfactory and stable condition.
--- NOTE | 2024-07-14 11:04 | IR ---
EXAMINATION TYPE: IR CVC inserted >=5 years DATE OF EXAM: 07/14/2024 COMPARISON: Pre Operative Images if available both CT/MRI or plain film CLINICAL INDICATION: Male, 73 years old with history of ABX, left cephalic vein, 47 cm, 0.5 minutes f luoroscopy; TECHNIQUE: IR CVC inserted >=5 years, multiple fluoroscopic images provided for procedure. Total fluoroscopy time: 0.5 minutes Total submitted images to PACS: 63 DAP: [id number] Gycm2 FINDINGS: Left subclavian approach central venous catheter placement. IMPRESSION: 1. Report was generated for administrative purposes only. 2. Please see the operative/procedural note for further details. [facility], , 07/14/2024 11:02 AM
[2024-07-14 11:38] LABS: Glucose,Whole Blood 211 mg/dL (70-110)
[2024-07-14] MEDS: VANCOMYCIN 1,250 MG in SODIUM CHLORIDE 0.9% 250 ML IVPB SCH (13:15)
[2024-07-14 13:55] VITALS: BP 107/54; PULSE 59; TEMP 98.1
--- NOTE | 2024-07-14 13:59 | P.DS ---
Providers Date of admission: 07/07/24 12:44 Expected date of discharge: 07/14/24 Attending physician: Aquilino Garber Consults: 07/07/24 12:53 Consult Physician Routine Consulting Provider: Gianni Casanova Consult Reason/Comments: testicular pain Do you want consulting provider notified?: Yes 07/07/24 12:54 Consult Physician Routine Consulting Provider: Jovita Mcnally Consult Reason/Comments: UTI Do you want consulting provider notified?: Yes Primary care physician: Aquilino Garber [facility] Course: Diagnosis on discharge: Urinary tract infection, with positive urine and blood culture for methicillin resistant Staphylococcus aureus Multiple antibiotic allergies Pain in the left testicle Underlying history of hypertension Underlying history of hyperlipidemia Underlying history of hyperthyroidism Underlying history of diabetes mellitus Underlying history of atrial fibrillation Underlying history of chronic systolic congestive heart failure without exacerbation at this time Underlying history of pulmonary hypertension with enlarged right ventricle Underlying history of physical debility patient is wheelchair and bedbound Hospital course: Francisco Cao, is a 73-year-old male resident of [facility] who was transferred to [facility] emergency room due to urinary tract infection with multiple resistant organisms, and pain in the left testicle. He was evaluated in the emergency room vital examination on presentation revealed a temperature of 97.5 pulse 87 respiration 17 blood pressure 137/71 pulse ox 99% on room air Laboratory data revealed a white blood count of 18.9 hemoglobin 10.8 platelet count 352 sodium 134 BUN 23 creatinine 0.76 hemoglobin A1c 8.4 albumin is low at 2.7 Urine culture from the intermediate was positive for Klebsiella pneumonia ESBL MDRO and methicillin-resistant Staphylococcus aureus Testing in the emergency room : Patient had an ultrasound of the scrotum that revealed soft tissue density with vascularity between the testicles. Patient was admitted to medical floor for further evaluation and treatment Past medical history is significant for history of hypertension, history of hyperlipidemia, history of hyperthyroidism, history of diabetes mellitus, history of atrial fibrillation, history of chronic systolic congestive heart failure, history of physical debility, history of recurrent urinary tract infections On review of systems patient is alert and oriented x 3 in no apparent distress there is no fever or chills no headache or dizziness no chest pain no shortness of breath no cough no nausea or vomiting no abdominal pain no diarrhea no blood in the stools no burning with urination no he has frequency with urination, and pain in the left testicle area. Patient has generalized weakness with inability to stand or walk, he is able to pivot from bed to wheelchair with help. On 07/08/2024 patient was seen and examined on the medical floor he is alert and oriented x 3 in no apparent distress he reports some improvement in the pain in the left testicle area otherwise he denies any complaints at this time there is no fever or chills no headache or dizziness no chest pain no shortness of breath no cough no nausea or vomiting no abdominal pain no diarrhea and no urinary symptoms. Vital examination reveals a temperature of 98 pulse 58 respiration 16 blood pressure 118/67 pulse ox 97% on room air white blood count is 14.43 hemoglobin 9.8 platelet count 348 On 07/09/2024 patient was seen and examined on the medical floor he is alert and oriented x 3 in no apparent distress he reports improvement in the pain in the left testicle area otherwise he denies any complaints at this time there is no fever or chills no headache or dizziness no chest pain no shortness of breath no cough no nausea or vomiting no abdominal pain no diarrhea and no urinary symptoms. Urology consult reviewed continue with current IV antibiotic will recheck labs and follow in a.m.. On 07/10/2024 patient was seen and examined on the medical floor he is alert and oriented x 3 in no apparent distress there is no fever or chills no headache or dizziness no chest pain no shortness of breath no cough no nausea or vomiting no abdominal pain no diarrhea, he is still complaining of burning with urination and pain in the left testicle. Patient states that he was supposed to have a cardiac catheterization as outpatient, which was canceled due to infected cyst in the sacral area, he is asking to see a dispatch manager to assess if cardiac catheterization can be resc heduled soon. Will arrange for cardiology consult On 07/11/2024 patient is alert and oriented x 3. Patient reports improvement with discomfort. Cardiology services have been consulted awaiting further input. Patient remains on IV vancomycin. Current vital signs temp 98.2, heart rate 54, respiratory rate 18, blood pressure 115/71 with a pulse ox of 97% on room air. Patient denies chest pain or shortness of breath. Patient denies nausea vomiting or diarrhea. Patient denies any urinary burning or frequency On 07/12/2024 patient was seen and examined on the medical floor he is alert and oriented x 3 in no apparent distress there is no fever or chills no headache or dizziness no chest pain no shortness of breath no cough no nausea or vomiting no abdominal pain no diarrhea he is still complaining of pain in the left testicle but has improved significantly and complaining of burning with urination. Patient was evaluated by cardiology today no plans for cardiac catheterization at this time. At this time we are awaiting for infectious disease recommendation to assess for antibiotic at the time of discharge. On 07/13/2024 patient is alert and oriented x 3. Patient denies chest pain or shortness of breath. Patient denies nausea vomiting or diarrhea. Patient denies any urinary burning or frequency. Per ID waiting on repeat blood culture to be negative for 72 hours prior to getting PICC line for outpatient IV antibiotic On 07/14/2024 patient is alert and oriented x 3. Patient is currently resting comfortably in bed. PICC line has been ordered per infectious disease but per nursing staff no availability for PICC line placement until Wednesday. Patient will remain on vancomycin. Current vital signs temp 97.9, heart rate 53, respiratory rate 17, blood pressure 119/66 with a pulse ox of 99% on room air Patient had PICC line placed on 07/14/2024 he was cleared for discharge to [facility] by infectious disease. Patient Condition at Discharge: Fair Plan - Discharge Summary Discharge Rx Participant: Yes New Discharge Prescriptions: New Vancomycin HCl in 5 % Dextrose [Vancomycin 1.25 Gram/250Ml-D5w] 1.25 gm IV DAILY #14 each Continue Tamsulosin [Flomax] 0.4 mg PO BID Loperamide HCl [Imodium A-D] 2 - 4 mg PO QID PRN MDD 8mg PRN Reason: Diarrhea guaiFENesin [guaiFENesin Oral Solution] 10 ml PO Q4H PRN PRN Reason: Cough Na Phos,M-B/Na Phos,Di-Ba [Fleet Adult] 133 ml RECTAL DAILY PRN PRN Reason: Constipation Magnesium Oxide [Mag-Ox] 400 mg PO BID Spironolactone [Aldactone] 25 mg PO HS Aspirin 81 mg PO DAILY Metoprolol Tartrate [Lopressor] 50 mg PO BID Amiodarone [Cordarone] 200 mg PO BID tab HYDROcodone/APAP 5-325MG [[place] 5-325] 1 tab PO Q4HR PRN PRN Reason: Pain lisinopriL [Zestril] 5 mg PO HS Sennosides/Docusate Sodium [Senna Plus 8.6-50 mg Tablet] 1 tab PO BID@0800,1700 Tums Ex 750mg 750 mg PO Q8H PRN PRN Reason: ANTACID Empagliflozin [Jardiance] 10 mg PO DAILY Lactose-Reduced Food [Ensure Original] 1 can PO HS Nystatin 100,000Unit/gm Cream [Mycostatin Cream] 1 applic TOPICAL BID@0800,1700 polyethylene glycoL 3350 [Miralax] 17 gm PO DAILY Sodium Chloride [Saline Mist] 1 spray EA NOSTRIL BID PRN PRN Reason: Dry Nasal Passages Magnesium Hydroxide [Milk of Magnesia Concentrate] 30 ml PO Q48H PRN PRN Reason: Constipation Hydrocortisone [Cortizone-10] 1 applic TOPICAL Q24H PRN PRN Reason: right thigh Albuterol Nebulized [Ventolin Nebulized] 2.5 mg INHALATION RT-Q6H Apixaban [Eliquis] 5 mg PO BID methIMAzole [Tapazole] 5 mg PO DAILY Pantoprazole [Protonix] 40 mg PO DAILY@0600 Melatonin 5 mg PO HS Tums 750mg Chewable 750 mg PO Q8H PRN PRN Reason: acid reflux Pioglitazone [Actos] 30 mg PO DAILY tab Bumetanide [BUMEX] 1 mg PO DAILY tab Atorvastatin Calcium 40 mg PO HS Cerave Pm 1 applic TOPICAL DAILY Vashe Wound Therapy 1 applic TOPICAL MOWEFR Acetaminophen [Tylenol 8 Hour] 650 mg PO Q4H PRN PRN Reason: GENERAL DISCOMFORT bisacodyL [Dulcolax] 10 mg RECTAL DAILY PRN PRN Reason: Constipation glipiZIDE [Glucotrol] 5 mg PO AC-TID INSULIN LISPRO (HumaLOG) [HumaLOG] See Protocol SQ AC-TID Triamcinolone 0.1% Cream [Kenalog 0.1% Cream] 1 applic TOPICAL BID Discharge Medication List Tamsulosin [Flomax] 0.4 mg PO BID 11/17/17 [History] Albuterol Nebulized [Ventolin Nebulized] 2.5 mg INHALATION RT-Q6H 02/07/24 [History] Apixaban [Eliquis] 5 mg PO BID 02/07/24 [History] Hydrocortisone [Cortizone-10] 1 applic TOPICAL Q24H PRN 02/07/24 [History] Loperamide HCl [Imodium A-D] 2 - 4 mg PO QID PRN MDD 8mg 02/07/24 [History] Magnesium Hydroxide [Milk of Magnesia Concentrate] 30 ml PO Q48H PRN 02/07/24 [History] Magnesium Oxide [Mag-Ox] 400 mg PO BID 02/07/24 [History] Melatonin 5 mg PO HS 02/07/24 [History] Na Phos,M-B/Na Phos,Di-Ba [Fleet Adult] 133 ml RECTAL DAILY PRN 02/07/24 [History] Pantoprazole [Protonix] 40 mg PO DAILY@0600 02/07/24 [History] Spironolactone [Aldactone] 25 mg PO HS 02/07/24 [History] Tums 750mg Chewable 750 mg PO Q8H PRN 02/07/24 [History] guaiFENesin [guaiFENesin Oral Solution] 10 ml PO Q4H PRN 02/07/24 [History] methIMAzole [Tapazole] 5 mg PO DAILY 02/07/24 [History] Aspirin 81 mg PO DAILY 02/16/24 [History] Metoprolol Tartrate [Lopressor] 50 mg PO BID 02/16/24 [History] Amiodarone [Cordarone] 200 mg PO BID tab 02/23/24 [Rx] Bumetanide [BUMEX] 1 mg PO DAILY tab 02/23/24 [Rx] Pioglitazone [Actos] 30 mg PO DAILY tab 02/23/24 [Rx] Atorvastatin Calcium 40 mg PO HS 03/15/24 [History] Cerave Pm 1 applic TOPICAL DAILY 03/15/24 [History] HYDROcodone/APAP 5-325MG [[place] 5-325] 1 tab PO Q4HR PRN 03/15/24 [History] Sennosides/Docusate Sodium [Senna Plus 8.6-50 mg Tablet] 1 tab PO BID@0800,1700 03/15/24 [History] lisinopriL [Zestril] 5 mg PO HS 03/15/24 [History] Acetaminophen [Tylenol 8 Hour] 650 mg PO Q4H PRN 07/07/24 [History] Empagliflozin [Jardiance] 10 mg PO DAILY 07/07/24 [History] INSULIN LISPRO (HumaLOG) [HumaLOG] See Protocol SQ AC-TID 07/07/24 [History] Lactose-Reduced Food [Ensure Original] 1 can PO HS 07/07/24 [History] Nystatin 100,000Unit/gm Cream [Mycostatin Cream] 1 applic TOPICAL BID@0800,1700 07/07/24 [History] Sodium Chloride [Saline Mist] 1 spray EA NOSTRIL BID PRN 07/07/24 [History] Triamcinolone 0.1% Cream [Kenalog 0.1% Cream] 1 applic TOPICAL BID 07/07/24 [History] Tums Ex 750mg 750 mg PO Q8H PRN 07/07/24 [History] Vashe Wound Therapy 1 applic TOPICAL MOWEFR 07/07/24 [History] bisacodyL [Dulcolax] 10 mg RECTAL DAILY PRN 07/07/24 [History] glipiZIDE [Glucotrol] 5 mg PO AC-TID 07/07/24 [History] polyethylene glycoL 3350 [Miralax] 17 gm PO DAILY 07/07/24 [History] Vancomycin HCl in 5 % Dextrose [Vancomycin 1.25 Gram/250Ml-D5w] 1.25 gm IV DAILY #14 each 07/14/24 [Rx] Follow up Appointment(s)/Referral(s): Aquilino Garber MD [Primary Care Provider] - 1-2 days ([facility] please call for appointment.) Jovita Mcnally MD [STAFF PHYSICIAN] - 1 Week (Office is closed at time of discharge. Please call for follow-up appointment.)
[2024-07-14 15:15] VITALS: BMI 30.1
--- NOTE | 2024-07-15 15:17 | P.PN ---
Subjective Progress Note Date: 07/14/24 Principal diagnosis: Reason for follow-up is UTI Patient is a 73-year-old male with a past medical history significant for hypertension hyperlipidemia prostate disorder sleep apnea COPD heart failure has been sent to the hospital for evaluation of testicular pain and a UTI that apparently was diagnosed about a week ago and did not respond to outpatient oral Cipro Levaquin therapy. On today's evaluation that is 07/14/2024, the patient continues to be afebrile, the patient is on room air and breathing comfortably, the Pt denies having any chest pain or cough, the patient denies having any abdominal pain no vomiting or any diarrhea pain to the scrotal area has decreased in intensity. Patient white count is 8.80, creatinine is 1.2 blood culture repeat has been ne gative Objective - Vital Signs Vital signs: Vital Signs Temp 97.9 F 07/14/24 07:22 Pulse 53 L 07/14/24 07:22 Resp 17 07/14/24 07:22 BP 119/66 07/14/24 07:22 Pulse Ox 99 07/14/24 07:22 FiO2 Intake & Output 07/13/24 07/14/24 07/14/24 18:59 06:59 18:59 Output Total 1800 1250 Balance -1800 -1250 Output: Urine 1800 1250 Other: Voiding Method External Catheter # Voids 1 - Exam GENERAL DESCRIPTION: An elderly male lying in bed in no distress RESPIRATORY SYSTEM: Unlabored breathing , decreased breath sounds at bases HEART: S1 S2 regular rate and rhythm , ABDOMEN: Soft , no tenderness EXTREMITIES: No edema feet - Labs CBC & Chem 7: 07/14/24 03:36 07/14/24 03:36 Labs: Abnormal Lab Results - Last 24 Hours (Table) 07/13/24 07/13/24 07/13/24 Range/Units 11:21 16:15 20:40 RBC (4.40-5.60) X 10*6/uL Hgb (13.0-17.0) g/dL Hct (39.6-50.0) % RDW (11.5-14.5) % MPV (9.5-12.2) FL Immature Gran # (0.00-0.04) X 10*3/uL BUN (9.0-27.0) mg/dL BUN/Creatinine Ratio (12.00-20.00) Ratio Glucose (70-110) mg/dL POC Glucose (mg/dL) 285 H 234 H 127 H (70-110) mg/dL ALT (10-49) U/L Alkaline Phosphatase (41-126) U/L Total Protein (6.2-8.2) g/dL Albumin (3.8-4.9) g/dL Albumin/Globulin Ratio (1.60-3.17) Ratio 07/14/24 07/14/24 07/14/24 Range/Units 03:36 03:36 06:27 RBC 3.43 L (4.40-5.60) X 10*6/uL Hgb 10.3 L (13.0-17.0) g/dL Hct 31.8 L (39.6-50.0) % RDW 14.6 H (11.5-14.5) % MPV 8.9 L (9.5-12.2) FL Immature Gran # 0.16 H (0.00-0.04) X 10*3/uL BUN 27.1 H (9.0-27.0) mg/dL BUN/Creatinine Ratio 22.58 H (12.00-20.00) Ratio Glucose 146 H (70-110) mg/dL POC Glucose (mg/dL) 125 H (70-110) mg/dL ALT 50 H (10-49) U/L Alkaline Phosphatase 138 H (41-126) U/L Total Protein 5.4 L (6.2-8.2) g/dL Albumin 2.6 L (3.8-4.9) g/dL Albumin/Globulin Ratio 0.93 L (1.60-3.17) Ratio Microbiology - Last 24 Hours (Table) 07/11/24 04:04 Blood Culture - Preliminary Blood Assessment and Plan (1) Failure of outpatient treatment Status: Acute Code(s): Z78.9 - OTHER SPECIFIED HEALTH STATUS SNOMED Code(s): 784531920 (2) UTI (urinary tract infection) Status: Acute Code(s): N39.0 - URINARY TRACT INFECTION, SITE NOT SPECIFIED SNOMED Code(s): 27227229 (3) Leukocytosis Status: Acute Code(s): D72.829 - ELEVATED WHITE BLOOD CELL COUNT, UNSPECIFIED SNOMED Code(s): 715051238 (4) MRSA (methicillin resistant staph aureus) culture positive Status: Acute Code(s): Z22.322 - CARRIER OR SUSPECTED CARRIER OF METHICILLIN RESIS STAPH SNOMED Code(s): 049636729 (5) Penicillin allergy Status: Acute Code(s): Z88.0 - ALLERGY STATUS TO PENICILLIN SNOMED Code(s): 98228204 (6) MRSA bacteremia Status: Acute Code(s): R78.81 - BACTEREMIA; B95.62 - METHICILLIN RESIS STAPH INFCT CAUSING DISEASES CLASSD ELSR SNOMED Code(s): 65275749674382179 Plan: 1patient is in the hospital with burning painful urination as well as mcguire prapubic pain testicular swelling and pain in this patient who did have urine culture done on 07/03/2024 that was positive for ESBL Klebsiella and MRSA failing outpatient oral Cipro and Levaquin therapy 2-leukocytosis likely due to complicated UTI, the patient white count has normalized 3-penicillin allergy that will limit number of antibiotics safe to use 4patient urine culture grew MRSA, the blood culture also positive for MRSA, repeat blood culture has been negative 5patient did clear his bacteremia PICC line has been placed plan is for 2-week course of IV vancomycin pharmacy to dose target of 15 on discharge discussed with admitting physician Dictation was produced using [employer] dictation software. please excuse any grammatical, word or spelling errors. Time with Patient: Less than 30
== END 2024-07-14 16:40 | DRG 690 ==
LOC: EC 10:12 → 4SSUR 12:44
PROVIDERS: ADMIT Internal Medicine; ATTEND Internal Medicine
PROC: B5181ZA Fluoroscopy of Superior Vena Cava using Low Osmolar Contrast, Guidance (ICD-10-PCS; 2024-07-14)
PROC: B548ZZA Ultrasonography of Superior Vena Cava, Guidance (ICD-10-PCS; 2024-07-14)
PROC: 02HV33Z Insertion of Infusion Device into Superior Vena Cava, Percutaneous Approach (ICD-10-PCS; principal; 2024-07-14 07:30)
DX: N39.0 Urinary tract infection, site not specified (principal); I27.20 Pulmonary hypertension, unspecified; R78.81 Bacteremia; I42.9 Cardiomyopathy, unspecified; Z66 Do not resuscitate; I11.0 Hypertensive heart disease with heart failure; E11.319 Type 2 diabetes mellitus with unspecified diabetic retinopathy without macular edema; B95.62 Methicillin resistant Staphylococcus aureus infection as the cause of diseases classified elsewhere; B96.1 Klebsiella pneumoniae [K. pneumoniae] as the cause of diseases classified elsewhere; E05.90 Thyrotoxicosis, unspecified without thyrotoxic crisis or storm; E89.0 Postprocedural hypothyroidism; J44.9 Chronic obstructive pulmonary disease, unspecified; I50.22 Chronic systolic (congestive) heart failure; Z16.12 Extended spectrum beta lactamase (ESBL) resistance; Z16.24 Resistance to multiple antibiotics; N50.812 Left testicular pain; G47.30 Sleep apnea, unspecified; R00.1 Bradycardia, unspecified; G89.29 Other chronic pain; M54.9 Dorsalgia, unspecified; I25.10 Atherosclerotic heart disease of native coronary artery without angina pectoris; E78.5 Hyperlipidemia, unspecified; I48.0 Paroxysmal atrial fibrillation; I44.0 Atrioventricular block, first degree; N40.0 Benign prostatic hyperplasia without lower urinary tract symptoms; N45.2 Orchitis; Z88.0 Allergy status to penicillin; Z88.1 Allergy status to other antibiotic agents; Z99.3 Dependence on wheelchair; Z79.01 Long term (current) use of anticoagulants; Z79.82 Long term (current) use of aspirin; Z79.84 Long term (current) use of oral hypoglycemic drugs; Z79.899 Other long term (current) drug therapy; Z82.49 Family history of ischemic heart disease and other diseases of the circulatory system; Z87.440 Personal history of urinary (tract) infections; Z87.442 Personal history of urinary calculi; Z87.891 Personal history of nicotine dependence; Z91.048 Other nonmedicinal substance allergy status
CPT/HCPCS: 36415; 36573; 76870; 80053; 80202; 81001; 82565; 83036; 83605; 84443; 85025; 87040; 87077; 87086; 87186; 93975; 96365; 96366; 96367; 99285

== ENCOUNTER 2024-08-10 10:14 | Day surgery (SDC) | payer MEDICARE ==
[2024-08-08 11:04] VITALS: BMI 30.2
[~2024-08-10 10:14] MED LIST changes: +ALPRAZolam 0.25 MG TAB PO PRN; +ALPRAZolam 0.5 MG TAB PO PRN; -LACTATED RINGERS 1,000 ML IV SCH; +NITROGLYCERIN SL TABS 0.4 MG TAB SUBLINGUAL PRN
[2024-08-10 10:34] LABS: Glucose,Whole Blood 192 mg/dL (70-110)
[2024-08-10] MEDS: SODIUM CHLORIDE 0.9% 1,000 ML in EMPTY BAG 1 BAG IV SCH (10:36)
[2024-08-10] MEDS: ASPIRIN 325 MG TAB PO ONE (10:36)
[2024-08-10] MEDS: ATORVASTATIN 80 MG TAB PO ONE (10:37)
[2024-08-10] MEDS: IV FLUID CONTINUATION 1,000 ML IV ONE (10:41)
[2024-08-10 10:45] VITALS: RESP 16; TEMP 98.1
[2024-08-10] MEDS: LIDOCAINE 1% INJ 10MG/ML (20 ML MDV) SQ ONE (10:56)
[2024-08-10] MEDS: MIDAZOLAM 2 MG/2 ML VIAL IVP ONE (10:56)
[2024-08-10] MEDS: fentaNYL (PF) 50 MCG/1 ML VIAL IVP ONE (10:56)
[2024-08-10] MEDS: VERAPAMIL SYRINGE (5 MG/10 ML) INTRAARTER ONE (10:59)
[2024-08-10] MEDS: HEPARIN SODIUM 1,000 UN/ML (10ML VL) IV ONE (11:03)
[2024-08-10] MEDS: HEPARIN SODIUM,PORCINE (1 ML) 2,500 UNIT in SODIUM CHLORIDE 0.9% 250 ML IRRIGATION PRN (11:03)
[2024-08-10] MEDS: HEPARIN SODIUM,PORCINE 10,000 UNIT in SODIUM CHLORIDE 0.9% 1,000 ML IRRIGATION PRN (11:03)
[2024-08-10] MEDS: IOPAMIDOL-370 100ML BTL INJ ONE (11:08)
[2024-08-10 15:25] VITALS: BP 130/61; PULSE 56
--- NOTE | 2024-08-10 16:49 | P.CARDCATH ---
Date of Procedure: 08/10/24 Description of Procedure: DIAGNOSTIC CORONARY ANGIOGRAPHY and LEFT HEART CATH REPORT PROCEDURES PERFORMED: Left heart catheterization Selective coronary angiography Moderate conscious sedation 14 mins [Ultrasound assisted] Right radial access INDICATION: Cardiomyopathy, dyspnea on exertion CONSENT: I have explained the procedural steps of above-mentioned procedures in layman's terms to the patient. I discussed the risks (including but not limited to stroke, emergent vascular or cardiac surgery or ), benefits and alternative therapies for the above-mentioned procedure. I discussed the risks of sedation/analgesia and blood product administration (if indicated). The patient has indicated understanding and acceptance of these risks. Conscious Sedation: Patient's ECG, heart rate, blood pressure, pulse oximetry were monitored throughout the duration of procedure under my direct supervision. 0.5 mg Versed and [50] mcg Fentanyl were used for induction of moderate conscious sedation. Total duration of moderate concious sedation 14 minutes. PROCEDURAL DETAILS: Patient was prepped and draped in sterile fashion. 1% lidocaine was infiltrated over the right radial artery. Right radial access was obtained via modified seldinger technique. [Ultrasound was used for radial access]. Medications: 5mg of verapamil was administed in the radial sheet. 5500 Units of Heparin was administed once the catheter reached the aortic root Wires and Catheter used: J wire was advanced under fluroscopy to get to aortic root. 5 british JR 4 diagnostic catheter was utilized obtain left ventricular pressure and pressure gradint across aortic valve. 5 british JR 4 diagnostic catheter was used to selectively engage the right coronary ostium. 5 british JL 3.5 diagnostic catheter was utilized to selectively engage the left coronary ostium. Angiographic images were reviewed in detail. Catheter and wire were removed. Radial sheet was flushed. The right radial sheath was removed and a TR band was placed. Patent hemostasis was achieved. The patient tolerated the procedure well. Patient was transpo rted back to the post catheterization holding area in stable condition. TECHNICAL DETAILS Total radiation: 134 mGy Total fluro time: 2.7 minutes Total contrast used: Isovue 50 mL Complications: [none] Estimated Blood loss: less than 15 ml HEMODYNAMICS: Aortic Pressure: 110/40 mmHg. LV pressure: 116/0 mmHg. LVEDP 3 mmHg. There was no significant gradient across the aortic valve. SELECTIVE CORONARY ARTERIOGRAPHY: LEFT MAIN: The left main is short and large caliber vessel. It bifurcates into the LAD and circumflex. Left main appears angiographically normal. LEFT ANTERIOR DESCENDING CORONARY ARTERY: LAD is a large caliber vessel which wraps around to the apex. Proximal mid and distal LAD appears angiographically patent. It gives rise to diagonal branches which appears angiographically patent. LEFT CIRCUMFLEX CORONARY ARTERY: It is dominant vessel. LCx is a large-caliber vessel and gives rise to diagonal branches, PL branches and PDA. The appears angiographically patent. RIGHT CORONARY ARTERY: non-Dominant vessel. RCA is medium caliber. Mid RCA has 30% disease but nonobstructive. IMPRESSION: Angiographically normal coronary arteries as described above. Normal left sided filling pressures Non ischemic cardiomyopathy PLAN: Aggressive risk factor modification per most recent ACC/AHA guidelines. 125 cc fluids for 4 hours Discharge home in 4 hours Follow-up in the office in 1-2 weeks. Performing Physician Harman Coreas MD, FACC, RPVI Thank you for allowing [facility] to participate in this patient's care. Feel free to reach out in case of any followup questions.
== END 2024-08-10 15:17 | disposition home or self-care (01) ==
LOC: CATHCVL 10:14
PROVIDERS: ATTEND Student in an Organized Health Care Education/Training Program
DX: I42.8 Other cardiomyopathies (principal); I95.1 Orthostatic hypotension; I45.10 Unspecified right bundle-branch block; E78.5 Hyperlipidemia, unspecified; E11.9 Type 2 diabetes mellitus without complications; J44.9 Chronic obstructive pulmonary disease, unspecified; E66.9 Obesity, unspecified; I11.0 Hypertensive heart disease with heart failure; I50.9 Heart failure, unspecified; I48.0 Paroxysmal atrial fibrillation; I73.9 Peripheral vascular disease, unspecified; Z88.0 Allergy status to penicillin; Z88.1 Allergy status to other antibiotic agents; Z79.01 Long term (current) use of anticoagulants; Z79.82 Long term (current) use of aspirin; Z79.84 Long term (current) use of oral hypoglycemic drugs; Z79.4 Long term (current) use of insulin; Z79.899 Other long term (current) drug therapy
CPT/HCPCS: 93458; 99152; J2250; J1644 ×3; J2003; Q9967; J3010

== ENCOUNTER 2024-10-11 13:24 | Emergency (ER) | payer MEDICARE ==
[2024-10-11 13:29] VITALS: TEMP 97.8
[2024-10-11] MEDS: PANTOPRAZOLE 40 MG/10 ML VIAL IVP STA (15:00)
[2024-10-11 15:02] LABS: Basophils # (A) 0.04 10*3/uL (0.00-0.10); Basophils % (A) 0.7 %; Eosinophils # (A) 0.05 10*3/uL (0.04-0.35); Eosinophils % (A) 0.9 %; HCT 37.3 % (39.6-50.0); HGB 12.4 g/dL (13.0-17.0); Lymphocytes # (A) 0.93 10*3/uL (0.90-5.00); MCHC 33.2 g/dL (32.0-37.0); MCV 90.1 fL (80.0-97.0); Mean Platelet Volume 8.8 fL (9.5-12.2); Monocytes # (A) 0.52 10*3/uL (0.20-1.00); Monocytes % (A) 8.9 %; Neutrophils # (A) 4.26 10*3/uL (1.80-7.70); Neutrophils % (A) 73.2 %; Platelet Count 234 10*3/uL (140-440); RBC 4.14 10*6/uL (4.40-5.60); RDW 14.2 % (11.5-14.5); WBC 5.82 10*3/uL (4.50-10.00)
[2024-10-11 15:20] LABS: INR 1.1 (<1.2); Partial Thromboplastin Time 24.9 sec (22.0-30.0); Prothrombin Time 11.8 sec (10.0-12.5)
[2024-10-11 15:23] LABS: ALT 30 U/L (4-49); AST 23 U/L (17-59); African American GFR (CKD) 54 (>60 ml/min/1.73 sqM); Albumin 3.6 g/dL (3.5-5.0); Alkaline Phosphatase 95 U/L (38-126); Amylase 41 U/L (30-110); Anion Gap 11 mmol/L; Blood Urea Nitrogen 38 mg/dL (9-20); Calcium 9.7 mg/dL (8.4-10.2); Carbon Dioxide 24 mmol/L (22-30); Chloride 103 mmol/L (98-107); Glucose 211 mg/dL (74-99); Lipase 107 U/L (23-300); Non-African American GFR(CKD) 46 (>60 ml/min/1.73 sqM); Potassium 4.4 mmol/L (3.5-5.1); Sodium 138 mmol/L (137-145); Total Bilirubin 0.8 mg/dL (0.2-1.3); Total Protein 6.6 g/dL (6.3-8.2)
--- NOTE | 2024-10-11 16:32 | CT ---
CTA abdomen and pelvis with and without contrast. HISTORY: GI bleed Comparison: None Technique: Multiple axial images are obtained through the abdomen and pelvis before and after the une ventful administration of nonionic IV contrast material. FINDINGS: There is a single gallstone. There is a 3 cm mass in the head of the pancreas suspicious for neoplasm and MRI of the abdomen with attention pancreas is recommended. There is no focal mass or organomegaly involving the liver, spleen or adrenal glands. There is no solid renal mass or hydronephrosis. There is no renal calcification. The bowel loops are normal in caliber and is no evidence of obstruction. There is a large amount of s tool within the rectum. There is no extravasation of contrast within the colon to suggest an acute GI bleed. No pelvic mass or adenopathy. 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 There is a Fraga reilly ter within the urinary bladder. IMPRESSION: 1. No evidence of a acute GI bleed 2 small gallstone. 3. 3 cm mass in the region of the head of the pancreas suspicious for neoplasm and MRI of the abdome n with and without contrast is recommended for further evaluation 4. Large amount of stool within the rectum but no bowel obstruction or inflammation. [facility], , 10/11/2024 4:29 PM
[2024-10-11 16:35] LABS: Appearance,Urine Clear (Clear); Bilirubin,Urine Negative (Negative); Blood,Urine Small (Negative); Color,Urine Colorless; Glucose,Urine (UA) 4+ (Negative); Ketones,Urine Negative (Negative); Leukocyte Esterase,Urine Negative (Negative); Nitrite,Urine Negative (Negative); PH, Urine 6.5 (5.0-8.0); Protein,Urine Negative (Negative); RBC,Urine 2 /hpf (0-5); Specific Gravity,Urine 1.011 (1.001-1.035); Urobilinogen,Urine <2.0 mg/dL (<2.0); WBC,Urine 7 /hpf (0-5)
[2024-10-11 17:17] VITALS: BP 132/51; PULSE 73; RESP 20
--- NOTE | 2024-10-11 17:26 | ED ---
General Adult HPI - General Chief complaint: GI Bleed Stated complaint: Blood in stool Time Seen by Provider: 10/11/24 14:36 Source: patient, EMS, RN notes reviewed, old records reviewed Mode of arrival: EMS Limitations: no limitations - History of Present Illness Initial comments: Patient is a 74-year-old male who presents emergency department from his rehab facility over concern for GI bleeding as well as urinary retention. Has not been able to pee since this morning. Is concerned he may have a UTI. Patient also states that a few days ago he had 1 episode of darker black tarry looking stools. That resolved. Then had an episode of bright red blood per rectum today 1 time. That is also resolved. Has had normal brown stool since. Denies any weakness, lightheadedness. Denies any chest pain or shortness of breath. He is on blood thinners for atrial fibrillation. Presents for further evaluation at this time. He has a history of hemorrhoids. Presents for further evaluation at this time. Endorses history of intermittent constipation and thinks that may have contributed to the bright red blood per rectum today secondary to hemorrhoid history. - Related Data Home Medications Medication Instructions Recorded Confirmed Tamsulosin [Flomax] 0.4 mg PO BID@08,199911/17/17 10/11/24 Albuterol Nebulized [Ventolin 2.5 mg INHALATION RT-Q6H PRN 02/07/24 10/11/24 Nebulized] Apixaban [Eliquis] 5 mg PO BID@08,199902/07/24 10/11/24 Hydrocortisone [Cortizone-10] 1 applic TOPICAL DAILY PRN 02/07/24 10/11/24 Loperamide HCl [Imodium A-D] 2 - 4 mg PO QID PRN MDD 8mg 02/07/24 10/11/24 Magnesium Oxide [Mag-Ox] 400 mg PO BID@0800,199902/07/24 10/11/24 Melatonin 5 mg PO HS@199902/07/24 10/11/24 Na Phos,M-B/Na Phos,Di-Ba [Fleet 133 ml RECTAL DAILY PRN 02/07/24 10/11/24 Adult] Pantoprazole [Protonix] 40 mg PO DAILY@0800 02/07/24 10/11/24 Spironolactone [Aldactone] 25 mg PO HS@199902/07/24 10/11/24 guaiFENesin [guaiFENesin Oral 200 mg PO Q4H PRN 02/07/24 10/11/24 Solution] methIMAzole [Tapazole] 5 mg PO DAILY@79902/07/24 10/11/24 Atorvastatin Calcium 40 mg PO HS@199903/15/24 10/11/24 HYDROcodone/APAP 5-325MG [[place] 1 tab PO Q4HR PRN 03/15/24 10/11/24 5-325] Sennosides/Docusate Sodium [Senna 1 tab PO BID@799,199903/15/24 10/11/24 Plus 8.6-50 mg Tablet] Empagliflozin [Jardiance] 10 mg PO DAILY@79907/07/24 10/11/24 Sodium Chloride [Saline Mist] 1 spray EA NOSTRIL BID PRN 07/07/24 10/11/24 bisacodyL [Dulcolax] 10 mg RECTAL DAILY PRN 07/07/24 10/11/24 polyethylene glycoL 3350 [Miralax] 17 gm PO DAILY@79907/07/24 10/11/24 glipiZIDE [Glucotrol] 5 mg PO AC-BRKFST 08/09/24 10/11/24 Acetaminophen Tab [Tylenol] 650 mg PO Q4H PRN 10/11/24 10/11/24 Amiodarone [Cordarone] 200 mg PO BID@799,199910/11/24 10/11/24 Bumetanide [BUMEX] 1 mg PO DAILY@79910/11/24 10/11/24 Cerave Pm Lotion Ultra 1 applic TOPICAL DAILY@79910/11/24 10/11/24 Hydrophilic Cream [Triad (Kerodex 1 applic TOPICAL BID 10/11/24 10/11/24 geq)] Insulin Lispro [humaLOG Kwikpen] See Protocol SQ AC-TID 10/11/24 10/11/24 Magnesium Hydroxide [Milk of 2,400 mg PO DIRECTED PRN 10/11/24 10/11/24 Magnesia] Metoprolol Succinate (ER) [Toprol 12.5 mg PO DAILY@79910/11/24 10/11/24 Xl] Pioglitazone [Actos] 30 mg PO DAILY@0800 10/11/24 10/11/24 Triamcinolone Ointment 0.5% 1 applic TOPICAL BID PRN 10/11/24 10/11/24 Tums-Ex 750mg 750 mg PO Q8H PRN 10/11/24 10/11/24 diphenhydrAMINE HCL 25 mg PO BID PRN 10/11/24 10/11/24 Allergies Allergy/AdvReac Type Severity Reaction Status Date / Time adhesive Allergy BLISTERING Verified 10/11/24 13:44 RASH amoxicillin Allergy Rash/Hives Verified 10/11/24 13:44 Penicillins Allergy Rash/Hives Verified 10/11/24 13:44 pollen extracts Allergy RHINITIS, Verified 10/11/24 13:44 SORE THROAT Review of Systems ROS Statement: Those systems with pertinent positive or pertinent negative responses have been documented in the HPI. Review of Systems: CONST: Denies fever EYES: Denies blurry vision ENT: Denies nasal congestion C/V: Denies Chest pain RESP: Denies shortness of breath GI: Denies abdominal pain : Endorses urinary retention SKIN: Denies rash. MSK: Denies joint pain. NEURO: Denies headache ROS Other: All systems not noted in ROS Statement are negative. Past Medical History Past Medical History: Atrial Fibrillation, Heart Failure, COPD, Diabetes Mellitus, Eye Disorder, Hyperlipidemia, Hypertension, Prostate Disorder, Sleep Apnea/CPAP/BIPAP, Thyroid Disorder Additional Past Medical History / Comment(s): HX PVC'S. MILD COPD. ANEMIA. HX KIDNEY STONES. BPH. HAD DIABETIC RETINOPATHY TX ON EYES. HAS HAD PICC LINE IN PAST, NOW OUT. CHRONIC BACK AND KNEE PAIN, lymphedema bilateral legs History of Any Multi-Drug Resistant Organisms: None Reported Date of last positivie culture/infection: 02/19/24 MDRO Source:: left foot Past Surgical History: Orthopedic Surgery Additional Past Surgical History / Comment(s): RT THYROIDECTOMY. MASS FROM BACK, FATTY TUMOR. NASAL MASS REMOVED. LASER EYES, INTRAOCULAR LENS. WOUND ON RT FOOT I&D. LEFT KNEE ARTHROSCOPY, multiple CYST REMOVED FROM TAILBONE Past Anesthesia/Blood Transfusion Reactions: Previous Problems w/ Anesthesia Additional Past Anesthesia/Blood Transfusion Reaction / Comment(s): OCC TAKES LONG TIME TO AWAKEN. Past Psychological History: No Psychological Hx Reported Smoking Status: Former smoker Past Alcohol Use History: None Reported Past Drug Use History: None Reported - Past Family History Mother Family Medical History: COPD Father Family Medical History: Diabetes Mellitus Additional Family Medical History / Comment(s): Heart failure. General Exam - General Exam Comments Initial Comments: General: Appears in no acute distress. HEAD: Normal with no signs of head trauma. EYES: EOMI ENT: Hearing grossly intact, normal oropharynx. RESPIRATORY: Clear breath sounds bilaterally. No wheezes, rales, or rhonchi. C/V: Regular rate and rhythm. S1 and S2 auscultated, no edema, peripheral pulses 2+ and intact throughout ABD: Abd is soft, nontender, nondistended. Rectal exam negative for any obvious gross blood. Light brown stool. Patient does have an uncomplicated external hemorrhoid present. No black tarry stool. No bright red blood. EXT: Normal range of motion, no obvious deformity SKIN: No rashes or lesions observed on exposed skin. NEURO: Alert and oriented x 4. No focal deficits. Limitations: no limitations Course Vital Signs 10/11/24 10/11/24 10/11/24 13:26 15:01 17:16 Temperature 97.8 F Pulse Rate 62 58 L 73 Respiratory 18 17 20 Rate Blood Pressure 142/66 147/60 132/51 O2 Sat by Pulse 100 98 100 Oximetry 10/11/24 17:38 Temperature 97.8 F Pulse Rate Respiratory Rate Blood Pressure O2 Sat by Pulse Oximetry Medical Decision Making - Medical Decision Making Was pt. sent in by a medical professional or institution (, PA, CERTIFIED CODING SPECIALIST, urgent care, hospital, or usp...) When possible be specific @ -No Did you speak to anyone other than the patient for history (EMS, parent, family, police, friend...)? What history was obtained from this source @ -No Did you review nursing and triage notes (agree or disagree)? Why? @ -I reviewed and agree with nursing and triage notes Were old charts reviewed (outside hosp., previous admission, EMS record, old EKG, old radiological studies, urgent care reports/EKG's, usp records)? Report findings @ -Old charts reviewed including prior hemoglobin level from September 11, 2024 which was 10.7. Today it is improved to 12.4. Differential Diagnosis (chest pain, altered mental status, abdominal pain women, abdominal pain men, vaginal bleeding, weakness, fever, dyspnea, syncope, headache, dizziness, GI bleed, back pain, seizure, CVA, palpatations, mental health, musculoskeletal)? @ -GI bleed, anemia, UTI, urinary retention. This list is not all inclusive. EKG interpreted by me (3pts min.). @ -As above X-rays interpreted by me (1pt min.). @ -None done CT interpreted by me (1pt min.). @ -CT GI bleed protocol negative for any obvious acute GI bleed. Patient does have some constipation as well. Patient does have finding of possible pancreatic mass and recommend outpatient MRI per radiology. U/S interpreted by me (1pt. min.). @ -None done What testing was considered but not performed or refused? (CT, X-rays, U/S, la bs)? Why? @ -None What meds were considered but not given or refused? Why? @ -None Did you discuss the management of the patient with other professionals (professionals i.e. , PA, CERTIFIED CODING SPECIALIST, lab, RT, psych nurse, psychiatric social worker supervisor, yarn man, teacher, retail loan officer, hospice case manager)? Give summary @ -Discussed with patient's PCP, Dr. Garber to let him know about the CT finding for follow-up purposes. Expressed understanding. We discussed patient's visit today as well. Was smoking cessation discussed for >3mins.? @ -No Was critical care preformed (if so, how long)? @ -No Were there social determinants of health that impacted care today? How? (Homelessness, low income, unemployed, alcoholism, drug addiction, transportation, low edu. Level, literacy, decrease access to med. care, usp, rehab)? @ -No Was there de-escalation of care discussed even if they declined (Discuss DNR or withdrawal of care, Hospice)? DNR status @ -No What co-morbidities impacted this encounter? (DM, HTN, Smoking, COPD, CAD, Cancer, CVA, ARF, Chemo, Hep., AIDS, mental health diagnosis, sleep apnea, morbid obesity)? @ -Atrial fibrillation on blood thinner Was patient admitted / discharged? Hospital course, mention meds given and route, prescriptions, significant lab abnormalities, going to OR and other pertinent info. @ -Patient presents for possible GI bleed as well as urinary retention. Bladder scan shows a urine retention of 500 cc. Fraga catheter placed upon arrival. Abdominal discomfort resolved with this. No recent GI bleed but had 1 episode with bright red blood and 1 episode with dark tarry stools. This was throughout the week this week. Is on blood thinners. Rectal exam today shows no blood but light brown stool. No obvious evidence of bleed at all. Will obtain GI bleed protocol workup. He was in agreement this plan. Vitals within acceptable limits. Labs are remarkable for a hemoglobin of 12.4 which is actually improved from being in the tens at the end of August 2024. Patient has a mild EILEEN likely secondary to the urinary retention which was resolved with the Fraga catheter. Urinalysis negative for UTI. Occult blood did return positive but this was expected with the recent possible bleeding this week. I discussed results with the patient. Vitals remained within acceptable limits. CT GI bleed protocol negative for any evidence of acute GI bleed. May be some constipation. He will be discharged home at this time as there is no clear evidence of a GI bleed but I did advise him to hold his Eliquis tonight and tomorrow morning. He can resume tomorrow evening. He was in agreement this plan. Recommended follow-up with his PCP Dr. Garber. He is otherwise asymptom at and was in agreement this plan. He will given urology follow-up for the urinary retention and Fraga catheter. I instructed the patient to follow up with their PCP in the next 1-3 days. I explained that the patient should return to the emergency department if they experience any worsening symptoms. Strict return precautions were discussed with the patient. The patient expressed understanding of these instructions. I answered all questions that the patient had. The patient was discharged home in good condition with their prescriptions and follow up information. CT imaging was updated to include a possible mass of the pancreatic head. I did contact the patient via phone and updated him. I also stated I would update the patient's PCP Dr. Garber to arrange for outpatient follow-up. He was in agreement this plan. I contacted Dr. Garber and discussed patient's workup today as well as the CT findings. He expressed understanding. Undiagnosed new problem with uncertain prognosis? @ -No Drug Therapy requiring intensive monitoring for toxicity (Heparin, Nitro, Insulin, Cardizem)? @ -No Were any procedures done? @ -No Diagnosis/symptom? @ -Urinary retention with Fraga catheter placement, occult positive stool, pancreatic mass Acute, or Chronic, or Acute on Chronic? @ -Acute Uncomplicated (without systemic symptoms) or Complicated (systemic symptoms)? @ -Uncomplicated Side effects of treatment? @ -No Exacerbation, Progression, or Severe Exacerbation? @ -No Poses a threat to life or bodily function? How? (Chest pain, USA, ND, pneumonia, PE, COPD, DKA, ARF, appy, cholecystitis, CVA, Diverticulitis, Homicidal, Suicidal, threat to staff... and all critical care pts) @ -Unlikely at this time - Lab Data Result diagrams: 10/11/24 14:54 10/11/24 14:54 Lab Results 10/11/24 10/11/24 10/11/24 Range/Units 14:36 14:54 14:54 WBC 5.82 (4.50-10.00) 10*3/uL RBC 4.14 L (4.40-5.60) 10*6/uL Hgb 12.4 L (13.0-17.0) g/dL Hct 37.3 L (39.6-50.0) % MCV 90.1 (80.0-97.0) fL MCH 30.0 (27.0-32.0) pg MCHC 33.2 (32.0-37.0) g/dL Plt Count 234 (140-440) 10*3/uL MPV 8.8 L (9.5-12.2) fL Immature Gran % (Auto) 0.3 % Neutrophils % 73.2 % Lymphocytes % 16.0 % Monocytes % 8.9 % Eosinophils % 0.9 % Basophils % 0.7 % Immature Gran # 0.02 (0.00-0.04) 10*3/uL Neutrophils # 4.26 (1.80-7.70) 10*3/uL Lymphocytes # 0.93 (0.90-5.00) 10*3/uL Monocytes # 0.52 (0.20-1.00) 10*3/uL Eosinophils # 0.05 (0.04-0.35) 10*3/uL Basophils # 0.04 (0.00-0.10) 10*3/uL PT 11.8 (10.0-12.5) sec INR 1.1 (<1.2) APTT 24.9 (22.0-30.0) sec Sodium (137-145) mmol/L Potassium (3.5-5.1) mmol/L Chloride (98-107) mmol/L Carbon Dioxide (22-30) mmol/L Anion Gap mmol/L BUN (9-20) mg/dL Creatinine (0.66-1.25) mg/dL Est GFR (CKD-EPI)AfAm (>60 ml/min/1.73 sqM) Est GFR (CKD-EPI)NonAf (>60 ml/min/1.73 sqM) Glucose (74-99) mg/dL Plasma Lactic Acid Juan Carlos (0.7-2.0) mmol/L Calcium (8.4-10.2) mg/dL Total Bilirubin (0.2-1.3) mg/dL AST (17-59) U/L ALT (4-49) U/L Alkaline Phosphatase (38-126) U/L Total Protein (6.3-8.2) g/dL Albumin (3.5-5.0) g/dL Amylase (30-110) U/L Lipase (23-300) U/L Urine Color Urine Appearance (Clear) Urine pH (5.0-8.0) Ur Specific Bolton (1.001-1.035) Urine Protein (Negative) Urine Glucose (UA) (Negative) Urine Ketones (Negative) Urine Blood (Negative) Urine Nitrite (Negative) Urine Bilirubin (Negative) Urine Urobilinogen (<2.0) mg/dL Ur Leukocyte Esterase (Negative) Urine RBC (0-5) /hpf Urine WBC (0-5) /hpf Stool Occult Blood (Negative) Blood Type A Positive Blood Type Recheck A Pos Bld Type Recheck Status No Antibody Screen NEGATIVE Spec Expiration Date 10/14/2024233510/11/24 10/11/24 10/11/24 Range/Units 14:54 14:54 14:55 WBC (4.50-10.00) 10*3/uL RBC (4.40-5.60) 10*6/uL Hgb (13.0-17.0) g/dL Hct (39.6-50.0) % MCV (80.0-97.0) fL MCH (27.0-32.0) pg MCHC (32.0-37.0) g/dL Plt Count (140-440) 10*3/uL MPV (9.5-12.2) fL Immature Gran % (Auto) % Neutrophils % % Lymphocytes % % Monocytes % % Eosinophils % % Basophils % % Immature Gran # (0.00-0.04) 10*3/uL Neutrophils # (1.80-7.70) 10*3/uL Lymphocytes # (0.90-5.00) 10*3/uL Monocytes # (0.20-1.00) 10*3/uL Eosinophils # (0.04-0.35) 10*3/uL Basophils # (0.00-0.10) 10*3/uL PT (10.0-12.5) sec INR (<1.2) APTT (22.0-30.0) sec Sodium 138 (137-145) mmol/L Potassium 4.4 (3.5-5.1) mmol/L Chloride 103 (98-107) mmol/L Carbon Dioxide 24 (22-30) mmol/L Anion Gap 11 mmol/L BUN 38 H (9-20) mg/dL Creatinine 1.45 H (0.66-1.25) mg/dL Est GFR (CKD-EPI)AfAm 54 (>60 ml/min/1.73 sqM) Est GFR (CKD-EPI)NonAf 46 (>60 ml/min/1.73 sqM) Glucose 211 H (74-99) mg/dL Plasma Lactic Acid Juan Carlos 1.7 (0.7-2.0) mmol/L Calcium 9.7 (8.4-10.2) mg/dL Total Bilirubin 0.8 (0.2-1.3) mg/dL AST 23 (17-59) U/L ALT 30 (4-49) U/L Alkaline Phosphatase 95 (38-126) U/L Total Protein 6.6 (6.3-8.2) g/dL Albumin 3.6 (3.5-5.0) g/dL Amylase 41 (30-110) U/L Lipase 107 (23-300) U/L Urine Color Colorless Urine Appearance Clear (Clear) Urine pH 6.5 (5.0-8.0) Ur Specific Bolton 1.011 (1.001-1.035) Urine Protein Negative (Negative) Urine Glucose (UA) 4+ H (Negative) Urine Ketones Negative (Negative) Urine Blood Small H (Negative) Urine Nitrite Negative (Negative) Urine Bilirubin Negative (Negative) Urine Urobilinogen <2.0 (<2.0) mg/dL Ur Leukocyte Esterase Negative (Negative) Urine RBC 2 (0-5) /hpf Urine WBC 7 H (0-5) /hpf Stool Occult Blood (Negative) Blood Type Blood Type Recheck Bld Type Recheck Status Antibody Screen Spec Expiration Date 10/11/24 Range/Units 14:55 WBC (4.50-10.00) 10*3/uL RBC (4.40-5.60) 10*6/uL Hgb (13.0-17.0) g/dL Hct (39.6-50.0) % MCV (80.0-97.0) fL MCH (27.0-32.0) pg MCHC (32.0-37.0) g/dL Plt Count (140-440) 10*3/uL MPV (9.5-12.2) fL Immature Gran % (Auto) % Neutrophils % % Lymphocytes % % Monocytes % % Eosinophils % % Basophils % % Immature Gran # (0.00-0.04) 10*3/uL Neutrophils # (1.80-7.70) 10*3/uL Lymphocytes # (0.90-5.00) 10*3/uL Monocytes # (0.20-1.00) 10*3/uL Eosinophils # (0.04-0.35) 10*3/uL Basophils # (0.00-0.10) 10*3/uL PT (10.0-12.5) sec INR (<1.2) APTT (22.0-30.0) sec Sodium (137-145) mmol/L Potassium (3.5-5.1) mmol/L Chloride (98-107) mmol/L Carbon Dioxide (22-30) mmol/L Anion Gap mmol/L BUN (9-20) mg/dL Creatinine (0.66-1.25) mg/dL Est GFR (CKD-EPI)AfAm (>60 ml/min/1.73 sqM) Est GFR (CKD-EPI)NonAf (>60 ml/min/1.73 sqM) Glucose (74-99) mg/dL Plasma Lactic Acid Juan Carlos (0.7-2.0) mmol/L Calcium (8.4-10.2) mg/dL Total Bilirubin (0.2-1.3) mg/dL AST (17-59) U/L ALT (4-49) U/L Alkaline Phosphatase (38-126) U/L Total Protein (6.3-8.2) g/dL Albumin (3.5-5.0) g/dL Amylase (30-110) U/L Lipase (23-300) U/L Urine Color Urine Appearance (Clear) Urine pH (5.0-8.0) Ur Specific Bolton (1.001-1.035) Urine Protein (Negative) Urine Glucose (UA) (Negative) Urine Ketones (Negative) Urine Blood (Negative) Urine Nitrite (Negative) Urine Bilirubin (Negative) Urine Urobilinogen (<2.0) mg/dL Ur Leukocyte Esterase (Negative) Urine RBC (0-5) /hpf Urine WBC (0-5) /hpf Stool Occult Blood Positive (Negative) Blood Type Blood Type Recheck Bld Type Recheck Status Antibody Screen Spec Expiration Date - EKG Data -: EKG Interpreted by Me EKG Comments: 12-lead Electrocardiogram Interpretation Note EKG was reviewed and interpreted by myself. 12-lead ECG performed at 1509 is interpreted by me as revealing sinus bradycardia with first-degree AV block at a rate of 57 beats per minute. Indeterminate axis. CT interval is 298 ms, QRS duration is 150 ms, QTc is 489 ms.. There were no ST or T wave abnormalities to suggest myocardial ischemia or injury. R wave progression across the precordium was satisfactory. By my interpretation this EKG is non-diagnostic for acute ischemia. With EKG from July 11, 2024 with no obvious significant change. Disposition Clinical Impression: Urinary retention, Occult blood positive stool, Pancreatic mass Disposition: HOME SELF-CARE Condition: Good Instructions (If sedation given, give patient instructions): Gastrointestinal Bleeding (ED), Urinary Retention in Men (ED) Additional Instructions: Your diagnosis today is occult positive stool as well as urinary retention with a Fraga catheter. Follow-up with urology in 1 week to have Fraga catheter removed. Hold your Eliquis for the next 24 hours, can resume the evening dose on October 12. Return if any worsening symptoms. Follow-up with your PCP in the next 1 to 3 days. Is patient prescribed a controlled substance at d/c from ED?: No Referrals: Aquilino Garber MD [Primary Care Provider] - 1-2 days Christopher Albrecht MD [STAFF PHYSICIAN] - 1-2 days Time of Disposition: 17:26
== END 2024-10-11 19:03 | disposition home or self-care (01) ==
LOC: EC 13:24
DX: K86.9 Disease of pancreas, unspecified (principal); K92.1 Melena; R33.9 Retention of urine, unspecified; R00.1 Bradycardia, unspecified; Z87.891 Personal history of nicotine dependence; Z88.0 Allergy status to penicillin; Z88.8 Allergy status to other drugs, medicaments and biological substances
CPT/HCPCS: 36415; 93005; 86900; 86901; 80053; 82150; 83605; 83690; 85025; 85610; 85730; 86850; 82272; 81001; 74174; 99285; 96374; 51702; Q9967; J2470

== ENCOUNTER → 2024-11-24 | Outpatient (CLI) | payer MEDICARE ==
--- NOTE | 2024-11-24 14:17 | MR ---
EXAMINATION TYPE: MR abdomen wo/w con DATE OF EXAM: 11/24/2024 12:01 PM COMPARISON: CT scan abdomen from 10/11/2024r. CLINICAL INDICATION: Male, 74 years old with history of d37.8 PANCREATIC MASS; PHH, pancreatic mass, abnormal CT TECHNIQUE: Multiplanar multi-sequence imaging was performed without contrast. Post contrast imaging was performed. Post IV contrast subtraction images were also submitted for review. IV Contrast: 9.5 mL Gadobutrol FINDINGS: LOWER CHEST: No gross irregularity. ABDOMEN Liver: No evidence for hepatic steatosis or cirrhosis. Right liver masses in the dome measuring 18 mm in inferiorly segment 6 measuring 25 mm. Both of these lesions demonstrate some degree of hypoenhanc ement. There is subtle enhancement within these lesions on postcontrast imaging of the more superior one more peripherally in the more inferior more centrally with a reticular appearance. Few scattered nonenhancing probable cysts also present in the liver. Gallbladder and Bile ducts: No evidence for ductal dilation, or biliary stricture or evidence of chol edocholithiasis. The gallbladder density gallstone in the gallbladder lumen. Pancreas: Pancreatic head/uncinate process mass measuring 28 x 31 x 26 mm. Demonstrates predominantly peripheral enhancement. Spleen: Normal for size. Adrenal glands: Right adrenal fat-containing lesion measuring 13 mm. No left adrenal nodules. Kidneys: No evidence for obstructive uropathy. No suspicious renal masses. Simple appearing left renal cyst measuring up to 15 mm which are high T2 signal. No suspicious postco ntrast enhancement. Scattered other subcentimeter high T2 signal cysts present. Stomach and Bowel: No evidence for bowel wall thickening or evidence for obstruction. Retroperitoneum/Peritoneum: No evidence of pneumoperitoneum or free fluid. Vasculature: No aortic aneurysm. Musculoskeletal: The osseous structures appear intact. Lymph Nodes: No gross evidence for lymphadenopathy. Abdominal wall: Unremarkable. IMPRESSION: 1. Pancreatic head/uncinate process 31 mm mass with probably peripheral enhancement concerning for p ancreatic adenocarcinoma until proven otherwise ERCP with tissue sampling recommended. Alternatively this could represent sequela of pancreatitis if there is a history of pancreatitis. 2. 2 liver lesions which have indeterminate enhancement characteristics there may be mild subtle enh ancement within the lesions. In the setting of pancreatic malignancy these could represent metastatic disease. Attention on PET/CT. 3. Simple appearing bilateral renal cysts, no follow-up recommended. 4. Right adrenal myelolipoma no follow-up recommended. [facility], , 11/24/2024 2:15 PM
== END | disposition home or self-care (01) ==
LOC: RADMRIMAIN 11:00
PROVIDERS: ATTEND Internal Medicine
DX: D37.8 Neoplasm of uncertain behavior of other specified digestive organs (principal); K76.9 Liver disease, unspecified; D17.79 Benign lipomatous neoplasm of other sites; N28.1 Cyst of kidney, acquired
CPT/HCPCS: 74183; A9585